=== PATIENT | female | born 1975 | race Caucasian/White ===

== ENCOUNTER 2023-11-11 14:47 | Outpatient (CLI) | payer BC, SELFPAY ==
--- NOTE | 2023-11-11 | MR_ITS ---
APPROVED REPORT Bioinformatics Support Specialist: CLINICAL INDICATION History of scleroderma, abnormal TTE TECHNIQUE Image Acquisition: Cardiac magnetic resonance (CMR) was performed on Siemens Espree MRI 1.5T scanner. Software platform sequences were performed using the Siemens Aldera MR B19 platform. A set of three-plane, low-resolution, large [id number] localizers were initially acquired. Then axial, coronal, sagittal TrueFISP, as well as axial HASTE images, were obtained. These were followed by gated TrueFISP breathold cinematic sequences obtained in the short axis with 8 mm slices and 2 mm gaps, 2-chamber (vertical long axis), 3-chamber, 4-chamber (horizontal long axis). A bolus of contrast was injected intravenously with first-pass sequences obtained in the short axis and four-chamber planes. After approximately 10 minutes, a TI band saw runner sequence was performed to determine the optimal TI time. Using the optimized TI time, delayed contrast enhancement segmented inversion???recovery TurboFLASH sequences were obtained in the short axis, 2-chamber, 3-chamber, and 4-chamber projections. 2D-velocity phase mapping was performed. Functional parameters were calculated by offline analysis on an independent workstation ([employer], [email or web address]). Contrast: ProHance??? (Gadoteridol) FINDINGS MORPHOLOGY AND FUNCTION Left ventricle: The left ventricle is normal in size. The indexed left ventricular end-diastolic volume (LVEDVi) is 81 ml/m2 (reference range 57-105 ml/m2 in males, 56-96 ml/m2 in females). There is mild reduction in left ventricular systolic function. There is normal left ventricular wall thickness. Mild global hypokinesis is present. The septum is asynchronous. The septal and inferoseptal LV mccarthy are moderately hypokinetic. LVEF is calculated at 40.1% (reference range 57-77%). Right ventricle: The right ventricle is normal in size. The indexed right ventricular end-diastolic volume (RVEDVi) is 34 ml/m2 (reference range 61-121 ml/m2 in males, 48-112 ml/m2 in females). There is mild reduction in right ventricular systolic function. RVEF is calculated at 40.3% (reference range 52-72% in males, 51-71% in females). Atria: The left atrium is normal in size. The maximum indexed left atrial volume is 19 ml/m2 (reference range 26-52 ml/m2 in males, 27-53 ml/m2 in females). The right atrium is normal in size. The maximum indexed right atrial volume is 18 ml/m2 (reference range 18-90 ml/m2). Aorta: The diameter of the aortic annulus is normal, measuring 24 mm (coronal view reference range 21-30 mm in males, 19-27 mm in females). The diameter of the aortic sinus is normal, measuring 28 mm (coronal view reference range 25-42 mm in males, 24-36 mm in females). The diameter of the sinotubular junction is normal, measuring 23 mm (coronal view reference range 18-32 mm in males, 18-28 mm in females). The diameters of the ascending and descending thoracic aorta are normal. Main pulmonary artery: The main pulmonary artery diameter is normal. Pericardium: The pericardial thickness is normal. The pericardial thickness measures 1.9 mm (normal < 4.0 mm). There is no pericardial effusion. VALVES The valvular morphologies in the visualized sequences appear normal. There is no significant valvular stenosis or regurgitation of the mitral, aortic, tricuspid, or pulmonic valve noted visually. Systolic anterior motion of the mitral valve is not visualized. Ratio of pulmonary to systemic flow, Qp:Qs ratio = 1.04 (normal < or = 1.2, hemodynamically significant shunt > 1.5), demonstrating no evidence of hemodynamically significant shunt. TISSUE CHARACTERIZATION Resting Perfusion: Abnormal myocardial blood flow at rest. Resting hypoperfusion is noted in the septal LV wall. Myocardial Fibrosis and/or edema: Normal gadolinium kinetics are present. No evidence of late gadolinium enhancement is noted, consistent with absence of myocardial scarring, infarction, or necrosis. T2-weighted imaging demonstrates no evidence of myocardial edema or inflammation. OTHER No other significant findings are noted. However, this exam is focused on the cardiac structure and function. Breat implants bilaterally are incidentally noted. IMPRESSION Normal LV size with mild reduction in LV systolic function. LVEDVi= 81 ml/m2 and LVEF= 40.1%. The septum is asynchronous. The septal and inferoseptal LV mccarthy are moderately hypokinetic. Normal RV size with mild reduction in RV systolic function. RVEDVi= 34 ml/m2 and RVEF= 40.3%. No atrial enlargement. No CMR evidence of myocardial scarring, infarction, or necrosis. No evidence of myocardial edema or inflammation. Resting hypoperfusion is noted in the septal LV wall. Ratio of pulmonary to systemic flow, Qp:Qs ratio = 1.04 (normal < or = 1.2, hemodynamically significant shunt > 1.5), demonstrating no evidence of hemodynamically significant shunt. Overall, this CMR demonstrates mild reduction in biventricular systolic function. No evidence of LGE or pattern characteristic of underlying etiology. Ischemic evaluation for the resting hypoperfusion in the septal LV wall is suggested, if clinically feasible. COMPARISON None CRITICAL RESULT None COMMUNICATION Per this written report The findings of this cardiac MR were reviewed, reported, and signed by Feliberto Ramsey MD (Medical Receptionist Medical Assistant). Conclusion Electronically signed by : Emerita Ramsey MD 11/21/2023 11:39:47
[2023-11-11] MEDS: GADOTERIDOL INJ 20ML SYRINGE 19 ML IV (15:52)
[2023-11-11] MEDS: SODIUM CHLORIDE 0.9% 10ML SYR (RAD ONLY) 10 ML IV (15:52)
[2023-11-11] MEDS: 0.9 % SODIUM CHLORIDE 50 ML VIAL 25 ML IV (15:52)
== END 2023-11-11 23:59 | disposition home or self-care (01) ==
LOC: RAD 14:48
DX: M34.9 Systemic sclerosis, unspecified (principal)
CPT/HCPCS: 75561; A9576

== ENCOUNTER 2024-06-05 09:27 | Outpatient (CLI) | payer BC, SELFPAY ==
--- NOTE | 2024-06-05 09:30 | CT_ITS ---
FINAL REPORT TECHNIQUE: IV contrast enhanced exam This study was performed with techniques to keep radiation doses as low as reasonably achievable, (ALARA). Individualized dose reduction techniques using automated exposure control or adjustment of mA and/or kV according to the patient's size were employed. CLINICAL HISTORY: ABD PAIN, epigastric pain for several years. unknown cause. COMPARISON: None FINDINGS: CT ABDOMEN AND PELVIS: Abdomen: Lung bases are clear. A small hiatal hernia is present, with findings consistent with reflux. The gallbladder is surgically absent. Liver has an unremarkable CT appearance. The spleen, pancreas and adrenal glands are unremarkable. Kidneys show no mass or obstruction. No bowel obstruction or fluid collection is seen. Pelvis: The appendix is normal in appearance. Pelvic bowel loops are unremarkable. No fluid collection or adenopathy is seen. The uterus has been surgically resected. IMPRESSION: Small hiatal hernia, with findings consistent with reflux. Otherwise, unremarkable CT evaluation of the abdomen and pelvis Reviewed, Interpreted and Dictated by Caron Dean MD Transcribed by Rachana Magallanes Authenticated and [facility]
[2024-06-05 10:05] LABS: Blood Urea Nitrogen 12 mg/dl (7-17); Estimated Glomerular Filt Rate 58 ml/min (>60); GFR (African American) 71 ML/MIN (>60)
[2024-06-05] MEDS: SODIUM CHLORIDE 0.9% 10ML SYR (RAD ONLY) 10 ML IV (10:40)
[2024-06-05] MEDS: IOPAMIDOL-370 (76%);100ML BOTTLE 75 ML IV (10:40)
== END 2024-06-05 23:59 | disposition home or self-care (01) ==
PROVIDERS: PCP Internal Medicine; Referring Provider Internal Medicine Gastroenterology; Visit Provider Internal Medicine
DX: R10.13 Epigastric pain (principal); R10.9 Unspecified abdominal pain
CPT/HCPCS: 36415; 74177; 82565; 84520; Q9967

== ENCOUNTER 2024-06-11 13:58 | Outpatient (CLI) | payer BC, SELFPAY ==
[2024-06-11 15:39] LABS: Basophils # 0.1 K/mm3 (0-0.2); Basophils % 0.8 % (0.1-2.0); Eosinophils # 0.4 K/mm3 (0.0-0.4); Eosinophils % 5.3 % (0.1-12.0); Hematocrit 37.6 % (37.0-47.0); Hemoglobin 12.1 g/dL (12.2-16.2); Lymphocytes # 3.4 K/mm3 (0.7-4.5); Lymphocytes % 46.4 % (10-50); Mean Corpuscular HGB Conc 32.2 g/dL (31.8-35.4); Mean Corpuscular Hemoglobin 30.6 pg (27.0-31.2); Mean Corpuscular Volume 94.9 fl (81-99); Mean Platelet Volume 10.2 fl (7.4-10.4); Monocytes # 0.5 K/mm3 (0.1-1.0); Monocytes % 6.2 % (1.7-9.3); Neutrophils % 41.2 % (37.0-80.0); Platelet Count 262 K/mm3 (142-424); Red Blood Count 3.96 M/mm3 (4.20-5.40); White Blood Count 7.3 K/mm3 (4.8-10.8)
[2024-06-11 16:08] LABS: Iron 98 ug/dL (37-170)
[2024-06-11 17:18] LABS: Vitamin B12 626 pg/mL (239-931)
[2024-06-11 17:22] LABS: 25-OH Vitamin D, Total 31.2 ng/mL (30-100)
[2024-06-11 19:35] LABS: Ferritin 10.4 ng/ml (11.1-264)
[2024-06-11 20:50] LABS: Total Iron Binding Capacity 413 ug/dL (265-497)
[2024-06-13 15:14] LABS: Pancreatic Elastase, Fecal 591 (>200)
[2024-06-14 19:23] LABS: Vitamin B6 24.3 ug/L (3.4-65.2)
== END 2024-06-11 23:59 | disposition home or self-care (01) ==
LOC: LAB 13:59
PROVIDERS: Obstetrics & Gynecology; PCP Internal Medicine; Visit Provider Internal Medicine Gastroenterology
DX: R14.0 Abdominal distension (gaseous) (principal); R19.8 Other specified symptoms and signs involving the digestive system and abdomen; R10.9 Unspecified abdominal pain; L65.9 Nonscarring hair loss, unspecified
CPT/HCPCS: 36415; 82306; 82607; 82656; 82728; 83540; 83550; 84207; 85025

== ENCOUNTER 2024-06-27 19:44 | Emergency (ER) | payer BC, SELFPAY ==
[2024-06-27 20:00] VITALS: BP 138/84; PULSE 93; RESP 15; O2SAT 99
[2024-06-27 20:03] VITALS: BP 138/84; PULSE 89; RESP 18; TEMP 37.2; O2SAT 100; BMI 33.0
--- NOTE | 2024-06-27 20:03 | [facility].EDGENADL ---
Discharge Plan Disposition Patient Disposition: Home, Self-Care Prescriptions Prescriptions: New lorazepam 1 mg tablet 1 mg PO Q8H PRN (Reason: anxiety) Qty: 7 0RF No Action hydroxychloroquine 200 mg tablet 400 mg PO ONCE Rx Instructions: Take 2 tablets by mouth daily carvedilol 3.125 mg tablet 3.125 mg PO BID Rx Instructions: Take 1 tablet by mouth twice daily with meals Voquezna 20 mg tablet 20 mg PO DAILY Rx Instructions: Take 1 tablet by mouth daily nortriptyline 25 mg capsule 25 mg PO HS prucalopride 1 mg tablet 1 mg PO DAILY promethazine 25 mg tablet 25 mg PO Q6H PRN melatonin 10 mg capsule 10 mg PO HS PRN acetaminophen 500 mg capsule 1,000 mg PO Q6H PRN colchicine 0.6 mg capsule 0.6 mg PO DAILY ondansetron 4 mg tablet,disintegrating 4 mg PO Q8H PRN famotidine 40 mg tablet 40 mg PO HS Jardiance 10 mg tablet 10 mg PO DAILY Entresto 24-26 mg tablet 1 tab PO BID [facility] 750 mg-100 mg- 1.65 mg-108 mg tablet 1 tab PO DAILY hyoscyamine sulfate [Levsin] 0.125 mg tablet 0.125 mg PO QID magnesium oxide 250 mg magnesium tablet 500 mg PO DAILY polyethylene glycol 3350 [Miralax] 17 gram/dose powder 17 g PO DAILY benzonatate 200 mg capsule PO Patient Comments: TAKE 1 CAPSULE BY MOUTH 2 TO 3 TIMES PER DAY NEEDED FOR COUGH.SWALLOW WHOLE DO NOT CHEW azithromycin 250 mg tablet 250 mg PO Patient Comments: TAKE 2 TABLETS BY MOUTH FOR 1 DAY THEN TAKE 1 TABLET BY MOUTH DAILY FOR 4 DAYS fluticasone propionate 50 mcg/actuation spray,suspension intranasal Patient Comments: SHAKE LIQUID AND USE 2 SPRAYS IN EACH NOSTRIL DAILY azelastine 137 mcg (0.1 %) spray,non-aerosol intranasal Patient Comments: ADMINISTER 2 SPRAYS INTO EACH NOSTRIL EVERY 12 HOURS clobetasol 0.05 % cream 1 applic topical HS Qty: 30 0RF estradiol 2 mg tablet 2 mg PO DAILY Qty: 30 11RF estradiol 10 mcg tablet 10 mcg vaginal .three times weekly Qty: 12 11RF Rx Instructions: insert vaginally 3 times weekly ferrous fumarate 324 mg (106 mg iron) tablet 324 mg PO DAILY Qty: 90 1RF Referrals Follow up/Referrals: Provider,Referral, [Primary Care Provider] - See instructions Activity Restrictions/Add. Instructions Additional Instructions/Restrictions: Follow-up with primary care doctor and your GI specialist as scheduled. Please return the emerged part with any new, concerning, worsening symptoms. Clinical Impressions Clinical Impression: Dysphagia Qualifiers: Dysphagia type: esophageal phase Qualified Code(s): R13.19 - Other dysphagia Instructions Patient Instructions: DI for Acute Abdominal Pain Print Language Print Language: [place] Citizen Discharge ED Provider: Tyshawn Acosta General Adult HPI <RAMÓN Jeronimo - Last Filed: 06/27/24 21:24> General Chief complaint: Abdominal Pain Stated complaint: discomfort in esopugus and ribs Time Seen by Provider: 06/27/24 19:46 History of Present Illness HPI narrative: Patient presents for evaluation of dysphagia. Patient has a long history of digestive difficulties with GERD and scleroderma and GI motility issues. She has followed for a long time at [facility] but is recently moved to the area. She has seen gastroenterology here 1 time at the beginning of this month. She has an EGD scheduled for next week. However since her visit with GI she has had increasing painful swallowing. Patient reports that over the last 2 weeks its become difficult to even swallow her secretions without pain. She denies any choking or food impaction. She denies any injury chest pain shortness of breath fever chills hemoptysis hematochezia melena nausea vomiting diarrhea currently. She also reports that she has been compliant with her medication regimen is not helpful. Related Data Home Medications ?Medication ?Instructions ?Recorded ?Confirmed acetaminophen 500 mg capsule 1,000 mg PO Q6H PRN 06/05/24 06/11/24 carvedilol 3.125 mg tablet 3.125 mg PO BID 06/05/24 06/11/24 colchicine 0.6 mg capsule 0.6 mg PO DAILY 06/05/24 06/11/24 empagliflozin 10 mg tablet 10 mg PO DAILY 06/05/24 06/11/24 (Jardiance) famotidine 40 mg tablet 40 mg PO HS 06/05/24 06/11/24 glucosam 750 mg-chondroi 100 1 tab PO DAILY 06/05/24 06/11/24 mg-hyalur 1.65 mg-CF borate 108 mg tablet ([facility]) hydroxychloroquine 200 mg tablet 400 mg PO ONCE 06/05/24 06/11/24 hyoscyamine sulfate 0.125 mg 0.125 mg PO QID 06/05/24 06/11/24 tablet (Levsin) magnesium oxide 500 mg PO DAILY 06/05/24 06/11/24 melatonin 10 mg capsule 10 mg PO HS PRN 06/05/24 06/11/24 nortriptyline 25 mg capsule 25 mg PO HS 06/05/24 06/11/24 ondansetron 4 mg disintegrating 4 mg PO Q8H PRN 06/05/24 06/11/24 tablet polyethylene glycol 3350 17 17 g PO DAILY 06/05/24 06/11/24 gram/dose oral powder (Miralax) promethazine 25 mg tablet 25 mg PO Q6H PRN 06/05/24 06/11/24 prucalopride 1 mg tablet 1 mg PO DAILY 06/05/24 06/11/24 sacubitril 24 mg-valsartan 26 mg 1 tab PO BID 06/05/24 06/11/24 tablet (Entresto) vonoprazan 20 mg tablet (Voquezna) 20 mg PO DAILY 06/05/24 06/11/24 azelastine 137 mcg (0.1 %) nasal intranasal 06/11/24 06/11/24 spray azithromycin 250 mg tablet 250 mg PO 06/11/24 06/11/24 benzonatate 200 mg capsule mg PO 06/11/24 06/11/24 fluticasone propionate 50 intranasal 06/11/24 06/11/24 mcg/actuation nasal spray,suspension Previous Rx's ?Medication ?Instructions ?Recorded clobetasol 0.05 % topical cream 1 applic topical HS #30 grams 06/11/24 estradiol 10 mcg vaginal tablet 10 mcg vaginal .three times weekly 06/11/24 #12 tabs estradiol 2 mg tablet 2 mg PO DAILY #30 tabs 06/11/24 ferrous fumarate 324 mg (106 mg 324 mg PO DAILY #90 tabs 06/12/24 iron) tablet lorazepam 1 mg tablet 1 mg PO Q8H PRN anxiety #7 tabs 06/28/24 Allergies Allergy/AdvReac Type Severity Reaction Status Date / Time lamotrigine (From Lamictal) Allergy Unknown Verified 06/27/24 20:07 allergy reaction levofloxacin (From Levaquin) Allergy Unknown Verified 06/27/24 20:07 allergy reaction lithium Allergy Unknown Verified 06/27/24 20:07 allergy reaction PFSH <RAMÓN Jeronimo - Last Filed: 06/27/24 21:24> [facility] Disclaimer: The information contained in this section may have been updated after the patient was seen, as this information can be updated by other users. Medical History (Updated 06/28/24 @ 00:30 by Tyshawn Acosta MD) Dyspareunia in female Decreased libido Atrophic vaginitis Lesion of female perineum Menopausal symptoms Lichen sclerosus of vulva Hair loss Scleroderma Fibromyalgia Raynaud disease IBS (irritable bowel syndrome) Diverticulosis Arthritis Anemia Anxiety Gastroparesis Silveira's esophagus GERD (gastroesophageal reflux disease) Surgical History History of delivery History of Jim fundoplication H/O: hysterectomy H/O hernia repair History of esophageal surgery History of cholecystectomy H/O breast surgery Family History Grandmother Breast cancer Family/Other Breast cancer Other Cancer Coronary artery disease Heart disease Hyperlipidemia Hypertension Kidney disease Stroke Social History Smoking Status: Never smoker alcohol intake: current alcohol intake frequency: holidays/special occasions only substance use type: denies use current occupational status: employed Travel in the last 8 weeks: Inside the [place] Have you lived/traveled outside US in past 30 days?: No Contact w/someone who lives/traveled outside US past 30 days?: No Exposure to someone with infectious disease in past 14 days?: No Do you have a fever (greater than 100.4 F or 38 C)?: No Have you tested positive for COVID-19: No Exposed to someone with COVID-19 in past 14 days?: No Do you have a sore throat?: No Do you have a cough?: No Do you have any weakness?: No Do you have any diarrhea?: No Are you experiencing any unusual bleeding?: No Do you have any muscle aches/pain?: No Do you have any abdominal pain?: No Are you experiencing loss of taste or smell?: No <RAMÓN Jeronimo - Last Filed: 06/27/24 21:24> ROS Obtained: Yes Systems reviewed as appropriate & no additional complaints except as documented Physical Exam <RAMÓN Jeronimo - Last Filed: 06/27/24 21:24> General General appearance: alert and in no apparent distress Respiratory Respiratory exam: Present normal lung sounds bilaterally Cardiovascular Cardiovascular exam: Present regular rate Neurological Exam Neurological exam: Present alert and oriented X3 Medical Decision Making <RAMÓN Jeronimo - Last Filed: 06/27/24 21:24> Medical Records Medical records reviewed: Yes I reviewed the patient's medical records. Screening: Per USPSTF and CDC recommendations, given the prevalence of disease in our region, it is our hospital?s policy to screen for HIV and viral Hepatitis for all patients aged 18 and over and those with ongoing risk factors. [place] Inquiry Pt receiving controlled substance: No Vital Signs: 06/27/24 20:00 06/27/24 20:03 06/27/24 20:07 Temperature 98.9 F Temperature Source Oral Pulse Rate 93 H 80 Pulse Rate [Apical] 89 Respiratory Rate 15 18 18 Blood Pressure 138/84 129/77 Blood Pressure [Right Arm] 138/84 Blood Pressure Mean [Right Arm] 102 Blood Pressure Source 02 Sat by Pulse Oximetry 99 100 98 Oxygen Delivery Method Room Air Room Air Room Air 06/27/24 20:10 06/28/24 00:42 06/28/24 00:46 Temperature 98.5 F 98 F Temperature Source Oral Pulse Rate 92 H 88 80 Pulse Rate [Apical] Respiratory Rate 17 17 20 Blood Pressure 136/85 126/63 132/87 Blood Pressure [Right Arm] Blood Pressure Mean [Right Arm] Blood Pressure Source Automatic Cuff 02 Sat by Pulse Oximetry 99 Oxygen Delivery Method Room Air Room Air Room Air Lab Data Lab results reviewed: Yes I reviewed the patient's lab results. Lab Results 06/27/24 20:19: WBC 5.5, RBC 3.67 L, Hgb 11.3 L, Hct 34.5 L, MCV 94.0, MCH 30.8, MCHC 32.8, RDW 12.9, Plt Count 266, MPV 10.0, Neut % (Auto) 35.9 L, Lymph % (Auto) 50.2 H, Haskell % (Auto) 7.8, Eos % (Auto) 5.2, Baso % (Auto) 0.7, Neut # (Auto) 2.0, Lymph # (Auto) 2.8, Haskell # (Auto) 0.4, Eos # (Auto) 0.3, Baso # (Auto) 0.0, Sodium 137, Potassium 3.9, Chloride 103, Carbon Dioxide 26, Anion Gap 11.9, BUN 10, Creatinine 0.90, Estimated Creat Clear 93, Estimated GFR 66, Est GFR ( Amer) 80, Glucose 91, Calcium 8.9, Total Bilirubin 0.5, AST 34, ALT 23, Alkaline Phosphatase 86, Total Protein 6.9, Albumin 3.9, Globulin 3.0, Albumin/Globulin Ratio 1.3, Procalcitonin < 0.030 06/27/24 20:19 06/27/24 20:19 Orders (Tests/Meds): ED MEDICATIONS Discontinued Medications Generic Name Dose Route Start Last Admin Trade Name Freq PRN Reason Stop Dose Admin Belladonna Alkaloids 60 ml 06/27/24 20:15 06/27/24 23:12 Belladonna Alkaloids 60 Ml Ml PO 06/27/24 20:16 60 ml ONCE ONE Administration Iopamidol 75 ml 06/27/24 22:18 06/27/24 22:19 Iopamidol-370 (76%);100ml Bottle IV 06/27/24 22:19 75 ml ONCE ONE Administration Ketorolac Tromethamine 15 mg 06/27/24 20:15 06/27/24 20:35 Ketorolac 30mg/Ml Vial IV 06/27/24 20:16 15 mg ONCE ONE Administration Lorazepam 1 mg 06/27/24 20:24 06/27/24 20:36 Lorazepam 2mg/Ml Vial IV 06/27/24 20:25 1 mg ONCE ONE Administration Sodium Chloride 10 ml 06/27/24 20:24 Sodium Chloride 0.9% 10ml Vial IV 07/27/24 20:23 NEEDED PRN to Dilute Lorazepam inj Sodium Chloride 10 ml 06/27/24 22:18 06/27/24 22:19 Sodium Chloride 0.9% 10ml Syr (Rad Only) IV 07/27/24 22:17 10 ml NEEDED PRN Administration Maintain IV Site ORDERS Category Date Time Status CT abdomen pelvis w con Stat Cat Scan 06/27/24 20:[address] chest w con Stat Cat Scan 06/27/24 20:15 Completed CBC w/Auto Diff [Complete Blood Count Auto Diff] Stat Lab 06/27/24 20:19 Completed CMP [Comprehensive Metabolic Panel] Stat Lab 06/27/24 20:19 Completed Procalcitonin Stat Lab 06/27/24 20:19 Completed Medical Decision Narrative: In summary patient is a 49-year-old female who presents to the emergency department for evaluation of aphasia. Patient is noted apically stable with a blood pressure 138/84 pulse 89 with normal sinus rhythm on bedside monitor breathing 18 times a minute satting 100% room air upon arrival, afebrile at 98.9. Physical exam is remarkable for no reproducible discomfort on palpation with clear breath sounds mild epigastric abdominal tenderness on palpation with no rebound or guarding no rigidity normal bowel sounds.. Differential diagnosis includes Silveira's esophagus versus achalasia versus esophageal injury versus GERD etc. Initial workup will be conducted with CT scan chest abdomen pelvis with IV and oral contrast. I had a interactive discussion with Dr. Russell of gastroenterology prior to JONES plan regarding patient JONES presentation and management. He recommended oral contrast to be most beneficial. He also recommended lorazepam to try to rule leave her esophageal spasm pain.. Initial interventions are deferred until CT imaging and if CT imaging does not show any evidence of esophageal injury to attempt GI cocktail. Initial workup ordered and pending at the time of handoff to Dr. Acosta at 2200 hrs. <Tyshawn Acosta MD - Last Filed: 06/28/24 01:27> Vital Signs: 06/27/24 20:00 06/27/24 20:03 06/27/24 20:07 Temperature 98.9 F Temperature Source Oral Pulse Rate 93 H 80 Pulse Rate [Apical] 89 Respiratory Rate 15 18 18 Blood Pressure 138/84 129/77 Blood Pressure [Right Arm] 138/84 Blood Pressure Mean [Right Arm] 102 Blood Pressure Source 02 Sat by Pulse Oximetry 99 100 98 Oxygen Delivery Method Room Air Room Air Room Air 06/27/24 20:10 06/28/24 00:42 06/28/24 00:46 Temperature 98.5 F 98 F Temperature Source Oral Pulse Rate 92 H 88 80 Pulse Rate [Apical] Respiratory Rate 17 17 20 Blood Pressure 136/85 126/63 132/87 Blood Pressure [Right Arm] Blood Pressure Mean [Right Arm] Blood Pressure Source Automatic Cuff 02 Sat by Pulse Oximetry 99 Oxygen Delivery Method Room Air Room Air Room Air Lab Data Lab Results 06/27/24 20:19: WBC 5.5, RBC 3.67 L, Hgb 11.3 L, Hct 34.5 L, MCV 94.0, MCH 30.8, MCHC 32.8, RDW 12.9, Plt Count 266, MPV 10.0, Neut % (Auto) 35.9 L, Lymph % (Auto) 50.2 H, Haskell % (Auto) 7.8, Eos % (Auto) 5.2, Baso % (Auto) 0.7, Neut # (Auto) 2.0, Lymph # (Auto) 2.8, Haskell # (Auto) 0.4, Eos # (Auto) 0.3, Baso # (Auto) 0.0, Sodium 137, Potassium 3.9, Chloride 103, Carbon Dioxide 26, Anion Gap 11.9, BUN 10, Creatinine 0.90, Estimated Creat Clear 93, Estimated GFR 66, Est GFR ( Amer) 80, Glucose 91, Calcium 8.9, Total Bilirubin 0.5, AST 34, ALT 23, Alkaline Phosphatase 86, Total Protein 6.9, Albumin 3.9, Globulin 3.0, Albumin/Globulin Ratio 1.3, Procalcitonin < 0.030 Orders (Tests/Meds): ED MEDICATIONS Discontinued Medications Generic Name Dose Route Start Last Admin Trade Name Freq PRN Reason Stop Dose Admin Belladonna Alkaloids 60 ml 06/27/24 20:15 06/27/24 23:12 Belladonna Alkaloids 60 Ml Ml PO 06/27/24 20:16 60 ml ONCE ONE Administration Iopamidol 75 ml 06/27/24 22:18 06/27/24 22:19 Iopamidol-370 (76%);100ml Bottle IV 06/27/24 22:19 75 ml ONCE ONE Administration Ketorolac Tromethamine 15 mg 06/27/24 20:15 06/27/24 20:35 Ketorolac 30mg/Ml Vial IV 06/27/24 20:16 15 mg ONCE ONE Administration Lorazepam 1 mg 06/27/24 20:24 06/27/24 20:36 Lorazepam 2mg/Ml Vial IV 06/27/24 20:25 1 mg ONCE ONE Administration Sodium Chloride 10 ml 06/27/24 20:24 Sodium Chloride 0.9% 10ml Vial IV 07/27/24 20:23 NEEDED PRN to Dilute Lorazepam inj Sodium Chloride 10 ml 06/27/24 22:18 06/27/24 22:19 Sodium Chloride 0.9% 10ml Syr (Rad Only) IV 07/27/24 22:17 10 ml NEEDED PRN Administration Maintain IV Site ORDERS Category Date Time Status CT abdomen pelvis w con Stat Cat Scan 06/27/24 20:[address] chest w con Stat Cat Scan 06/27/24 20:15 Completed CBC w/Auto Diff [Complete Blood Count Auto Diff] Stat Lab 06/27/24 20:19 Completed CMP [Comprehensive Metabolic Panel] Stat Lab 06/27/24 20:19 Completed Procalcitonin Stat Lab 06/27/24 20:19 Completed Medical Decision Narrative: In summary patient is a 49-year-old female who presents to the emergency department for evaluation of aphasia. Patient is noted apically stable with a blood pressure 138/84 pulse 89 with normal sinus rhythm on bedside monitor breathing 18 times a minute satting 100% room air upon arrival, afebrile at 98.9. Physical exam is remarkable for no reproducible discomfort on palpation with clear breath sounds mild epigastric abdominal tenderness on palpation with no rebound or guarding no rigidity normal bowel sounds.. Differential diagnosis includes Silveira's esophagus versus achalasia versus esophageal injury versus GERD etc. Initial workup will be conducted with CT scan chest abdomen pelvis with IV and oral contrast. I had a interactive discussion with Dr. Russell of gastroenterology prior to JONES plan regarding patient JONES presentation and management. He recommended oral contrast to be most beneficial. He also recommended lorazepam to try to rule leave her esophageal spasm pain.. Initial interventions are deferred until CT imaging and if CT imaging does not show any evidence of esophageal injury to attempt GI cocktail. Initial workup ordered and pending at the time of handoff to Dr. Acosta at 2200 hrs. DANETTE attestation I was consulted by the DANETTE, and we discussed the complexity of problems being addressed. I approved the treatment and management plan for this patient's care in the emergency department, thus performing a substantial portion of the medical decision making. CT imaging was independently interpreted by me, revealing no evidence of esophageal injury. Demonstrated circumferential thickening consistent with patient's known pathology. 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 She did not have significant respiratory symptoms at this time and is to follow-up with primary care doctor regarding this pathology. No acute intra-abdominal pathology. She was tolerating oral intake and had been administered GI cocktail, lorazepam, and Toradol. Was ultimately discharged with plan for outpatient follow-up with Dr. Russell for scheduled scope next . Sent a prescription for lorazepam to take as needed for esophageal spasm according to Dr. Russell recommendations. Tyshawn Acosta MD Critical Care <RAMÓN Jeronimo - Last Filed: 06/27/24 21:24> Critical Care Time Critical Care Time: Yes Attestation: On 06/27/24, the high probability of a clinically significant, sudden or life threatening deterioration of the following system(s) required my full and direct attention, intervention and personal management. The time I documented below is in addition to time spent performing reported procedures but includes the following listed in this critical care notation. Total Time Total Critical Care Time: 35
[2024-06-27 20:07] VITALS: BP 129/77; PULSE 80; RESP 18; O2SAT 98
[2024-06-27 20:10] VITALS: BP 136/85; PULSE 92; RESP 17; O2SAT 99
--- NOTE | 2024-06-27 20:15 | CT_ITS ---
PROCEDURE INFORMATION: Exam: CT Abdomen And Pelvis With Contrast Exam date and time: 06/27/2024 10:08 PM Age: 49 years old Clinical indication: Abdominal pain; Additional info: Dysphagia and scleroderma TECHNIQUE: Imaging protocol: Computed tomography of the abdomen and pelvis with contrast. Radiation optimization: All CT scans at this facility use at least one of these dose optimization techniques: automated exposure control; mA and/or kV adjustment per patient size (includes targeted exams where dose is matched to clinical indication); or iterative reconstruction. Contrast material: ISOVUE; Contrast volume: 75 ml; Contrast route: IV; COMPARISON: CT ABDOMEN PELVIS W CON 06/05/2024 10:23 AM FINDINGS: Liver: Normal. No mass. Gallbladder and biliary ducts: Surgically absent gallbladder. No biliary ductal dilatation. Pancreas: Normal. No ductal dilation. Spleen: Normal. No splenomegaly. Adrenal glands: Normal. No mass. Kidneys and ureters: Normal. No hydronephrosis. Stomach and bowel: Moderate loss of haustral markings most pronounced in cecum and ascending colon with patulous cecum. Sigmoid colonic diverticula without pericolonic fat stranding. No obstruction. No mucosal thickening. Appendix: No evidence of appendicitis. Intraperitoneal space: Unremarkable. No free air. No significant fluid collection. Vasculature: Unremarkable. No abdominal aortic aneurysm. Lymph nodes: Unremarkable. No enlarged lymph nodes. Urinary bladder: Unremarkable as visualized. Reproductive: Unremarkable as visualized. Bones/joints: Unremarkable. No acute fracture. Soft tissues: Unremarkable. IMPRESSION: 1. Moderate loss of haustral in colonic segments with patulous cecum. With clinical history, can not exclude partial manifestation valvulae conniventes with hidebound bowel . 2. Sigmoid colonic diverticulosis.
--- NOTE | 2024-06-27 20:15 | CT_ITS ---
PROCEDURE INFORMATION: Exam: CT Chest With Contrast; Diagnostic Exam date and time: 06/27/2024 10:08 PM Age: 49 years old Clinical indication: Pain; Chest pressure; Additional info: Dysphagia and scleroderma TECHNIQUE: Imaging protocol: Diagnostic computed tomography of the chest with contrast. Radiation optimization: All CT scans at this facility use at least one of these dose optimization techniques: automated exposure control; mA and/or kV adjustment per patient size (includes targeted exams where dose is matched to clinical indication); or iterative reconstruction. Contrast material: ISOVUE; Contrast volume: 75 ml; Contrast route: IV; COMPARISON: MR CARDIAC WO/W CON 11/11/2023 3:16 PM FINDINGS: Lungs: Too numerous to count, tiny nodular densities throughout lungs most pronounced along peripheries. No consolidation. No masses. Pleural spaces: Unremarkable. No pneumothorax. No pleural effusion. Heart: Unremarkable. No cardiomegaly. No pericardial effusion. Esophagus: Patulous esophagus with mild concentric wall thickening. Lymph nodes: Unremarkable. No enlarged lymph nodes. Vasculature: Unremarkable. No aortic aneurysm. Bones/joints: Unremarkable. No acute fracture. Soft tissues: Unremarkable. IMPRESSION: 1. Tiny, peripheral nodular densities in both lungs. With clinical history, can not exclude early manifestations of follicular bronchiolitis. 2. Patulous esophagus with concentrically thickened esophageal wall without evidence for active inflammation. With clinical history, suspicious for partial manifestation of fibrosis.
[2024-06-27] MEDS: KETOROLAC 30MG/ML VIAL 15 MG IV (20:35)
[2024-06-27] MEDS: LORazepam 2MG/ML VIAL 1 MG IV (20:36)
[2024-06-27 21:39] LABS: Basophils % 0.7 % (0.1-2.0); Eosinophils # 0.3 Kmm3 (0.0-0.4); Eosinophils % 5.2 % (0.1-12.0); Hematocrit 34.5 % (37.0-47.0); Hemoglobin 11.3 g/dL (12.2-16.2); Lymphocytes # 2.8 K/mm3 (0.7-4.5); Lymphocytes % 50.2 % (10-50); Mean Corpuscular HGB Conc 32.8 g/dL (31.8-35.4); Mean Corpuscular Hemoglobin 30.8 pg (27.0-31.2); Monocytes # 0.4 K/mm3 (0.1-1.0); Monocytes % 7.8 % (1.7-9.3); Neutrophils % 35.9 % (37.0-80.0); Nucleated Red Blood Cells # 0 10^3/uL; Nucleated Red Blood Cells % 0 %; Platelet Count 266 K/mm3 (142-424); Red Blood Count 3.67 M/mm3 (4.20-5.40); Red Cell Distribution Width 12.9 % (11.5-17.5); Red Cell Distribution Width-SD 44.7 fL; White Blood Count 5.5 K/mm3 (4.8-10.8)
[2024-06-27 21:48] LABS: Alanine Aminotransferase 23 U/L (12-78); Albumin Level 3.9 g/dl (3.5-5.0); Albumin/Globulin Ratio 1.3 (1.1-1.8); Alkaline Phosphatase 86 U/L (38-126); Anion Gap 11.9 mEq/L (5-15); Aspartate Amino Transferase 34 U/L (14-36); Bilirubin,Total 0.5 mg/dl (0.2-1.3); Blood Urea Nitrogen 10 mg/dl (7-17); Calcium 8.9 mg/dl (8.4-10.2); Carbon Dioxide 26 mmol/L (22.0-30.0); Chloride 103 mmol/L (98-107); Creatinine Clearance Estimated 93 mL/min (50-200); Estimated Glomerular Filt Rate 66 ml/min (>60); GFR (African American) 80 ML/MIN (>60); Glucose 91 mg/dl (74-100); Potassium 3.9 mmoL/L (3.5-5.1); Sodium 137 mmol/L (136-145); Total Protein,Serum 6.9 g/dl (6.3-8.2)
[2024-06-27 22:13] LABS: Procalcitonin < 0.030 ng/mL (0.0-2.0)
[2024-06-27] MEDS: SODIUM CHLORIDE 0.9% 10ML SYR (RAD ONLY) 10 ML IV (22:19)
[2024-06-27] MEDS: IOPAMIDOL-370 (76%);100ML BOTTLE 75 ML IV (22:19)
[2024-06-27] MEDS: BELLADONNA ALKALOIDS 60 ML ML PO (23:12)
[2024-06-28 00:42] VITALS: BP 126/63; PULSE 88; RESP 17; TEMP 36.9; O2SAT 96
[2024-06-28 00:46] VITALS: BP 132/87; PULSE 80; RESP 20; TEMP 36.6; O2SAT 98
== END 2024-06-28 00:49 | disposition home or self-care (01) ==
PROVIDERS: Physician Assistant; Emergency Provider Student in an Organized Health Care Education/Training Program
DX: R10.816 Epigastric abdominal tenderness (principal); R13.10 Dysphagia, unspecified
CPT/HCPCS: 71260; 74177; 80053; 84145; 85025; 96374; 96375; 99291; J1885; J2060; Q9967

== ENCOUNTER 2024-07-02 12:01 | Day surgery (SDC) | payer BC, SELFPAY ==
[2024-07-02 13:46] VITALS: BMI 33.0
[2024-07-02 14:11] VITALS: BP 127/67; PULSE 83; RESP 16; TEMP 36.5; O2SAT 100
[2024-07-02] MEDS: LACTATED RINGERS 1000ML 1,000 ML 50 ML IV (14:18)
--- NOTE | 2024-07-02 14:41 | EXP.ANES.CKL ---
[facility] Disclaimer: The information contained in this section may have been updated after the patient was seen, as this information can be updated by other users. Medical History (Updated 07/02/24 @ 14:10 by Devika Encarnacion RN) Left bundle branch block (LBBB) Chronic heart failure Dyspareunia in female Decreased libido Atrophic vaginitis Lesion of female perineum Menopausal symptoms Lichen sclerosus of vulva Hair loss Scleroderma Fibromyalgia Raynaud disease IBS (irritable bowel syndrome) Diverticulosis Arthritis Anemia Anxiety Gastroparesis Silveira's esophagus GERD (gastroesophageal reflux disease) Surgical History History of delivery History of Jim fundoplication H/O: hysterectomy H/O hernia repair History of esophageal surgery History of cholecystectomy H/O breast surgery Family History Grandmother Breast cancer Family/Other Breast cancer Other Cancer Coronary artery disease Heart disease Hyperlipidemia Hypertension Kidney disease Stroke Social History (Updated 07/02/24 @ 14:10 by Devika Encarnacion RN) Smoking Status: Never smoker alcohol intake: current alcohol intake frequency: holidays/special occasions only substance use type: denies use current occupational status: employed Travel in the last 8 weeks: Inside the [place] caffeine: Yes Have you lived/traveled outside US in past 30 days?: No Contact w/someone who lives/traveled outside US past 30 days?: No Exposure to someone with infectious disease in past 14 days?: No Do you have a fever (greater than 100.4 F or 38 C)?: No Have you tested positive for COVID-19: No Exposed to someone with COVID-19 in past 14 days?: No Do you have a sore throat?: No Do you have a cough?: No Do you have any weakness?: No Are you experiencing any nausea/vomitting?: No Do you have any diarrhea?: No Are you experiencing any unusual bleeding?: No Do you have any muscle aches/pain?: No Do you have any abdominal pain?: No Are you experiencing loss of taste or smell?: No [facility] Anesthesia Checklist Patient Identification Patient Identification: Arm Band Structural Data Admitted From: Home Planned Operative Procedure/s: EGD Consent for Planned Operative Procedure(s) Verified: Yes Verified Documents: Surgical Consent and History and Physical NPO Status Verified Time NPO: 00:00 Additional verifications Anesthesia Reactions: No Airway Assessment Mallampati Score:: Class II C-Spine Mobility Assessed: Yes TMJ Mobility Assessed: Yes Dentition: Good Dentition Neurological Assessment Level of Consciousness: Awake, Alert and Appropriate Anesthesia Plan Anesthesia Risk discussed: Yes Anesthesia Plan: Verified ASA Class: III Anesthesia Type: MAC
--- NOTE | 2024-07-02 15:05 | EXP.HP ---
History of Present Illness *Admission Date: 07/02/24 *Reason for visit:: Dyspepsia/GERD/history of Silveira's esophagus *History of present illness: Mrs. Aponte is a 49-year-old female with a long history of digestive difficulties with GERD, scleroderma and GI motility issues. The patient is seen at [facility] both in the motility clinic but also in the regular GI clinic because of her history of Silveira's. She also has a history of diverticulitis. The patient is presently on Voquezna and famotidine. She also takes Motegrity which has really helped her. The patient continues to have dyspepsia with epigastric abdominal discomfort. She also has some painful swallowing/odynophagia. She does have moderate bloating, belching, nausea and early satiety. She also still has some obstipation with incomplete bowel evacuation. She will get some alternating constipation with diarrhea. She is due for repeat surveillance EGD because of her Silveira's in July 2024. She has had multiple diagnostic studies at [facility]. She has also been seen by Dr. Kenneth Murray MD at the motility clinic in [place]. The patient reports no new change in bowel habits, rectal bleeding, fever or new GI symptoms. She is here to establish care and does not want to travel to [place] as frequently. [facility] Disclaimer: The information contained in this section may have been updated after the patient was seen, as this information can be updated by other users. Medical History (Updated 07/02/24 @ 14:10 by Devika Encarnacion RN) Left bundle branch block (LBBB) Chronic heart failure Dyspareunia in female Decreased libido Atrophic vaginitis Lesion of female perineum Menopausal symptoms Lichen sclerosus of vulva Hair loss Scleroderma Fibromyalgia Raynaud disease IBS (irritable bowel syndrome) Diverticulosis Arthritis Anemia Anxiety Gastroparesis Silveira's esophagus GERD (gastroesophageal reflux disease) Surgical History History of delivery History of Jim fundoplication H/O: hysterectomy H/O hernia repair History of esophageal surgery History of cholecystectomy H/O breast surgery Family History Grandmother Breast cancer Family/Other Breast cancer Other Cancer Coronary artery disease Heart disease Hyperlipidemia Hypertension Kidney disease Stroke Social History (Updated 07/02/24 @ 14:10 by Devika Encarnacion RN) Smoking Status: Never smoker alcohol intake: current alcohol intake frequency: holidays/special occasions only substance use type: denies use current occupational status: employed Travel in the last 8 weeks: Inside the [place] caffeine: Yes Have you lived/traveled outside US in past 30 days?: No Contact w/someone who lives/traveled outside US past 30 days?: No Exposure to someone with infectious disease in past 14 days?: No Do you have a fever (greater than 100.4 F or 38 C)?: No Have you tested positive for COVID-19: No Exposed to someone with COVID-19 in past 14 days?: No Do you have a sore throat?: No Do you have a cough?: No Do you have any weakness?: No Are you experiencing any nausea/vomitting?: No Do you have any diarrhea?: No Are you experiencing any unusual bleeding?: No Do you have any muscle aches/pain?: No Do you have any abdominal pain?: No Are you experiencing loss of taste or smell?: No Review of Systems Review of Systems Review of systems (narrative): Negative *Cardiovascular Comments: Negative *Gastrointestinal Comments: Negative *Genitourinary Comments: Negative *Musculoskeletal Comments: Negative *Neurologic Comments: Negative Meds Home Medications and Allergies Home Medications ?Medication ?Instructions ?Recorded ?Confirmed ?Type acetaminophen 500 mg capsule 1,000 mg PO Q6H PRN Pain 06/05/24 07/02/24 History carvedilol 3.125 mg tablet 3.125 mg PO BID 06/05/24 07/02/24 History colchicine 0.6 mg capsule 0.6 mg PO DAILY 06/05/24 07/02/24 History empagliflozin 10 mg tablet 10 mg PO DAILY 06/05/24 07/02/24 History (Jardiance) famotidine 40 mg tablet 40 mg PO HS 06/05/24 07/02/24 History glucosam 750 mg-chondroi 100 1 tab PO DAILY 06/05/24 07/02/24 History mg-hyalur 1.65 mg-CF borate 108 mg tablet ([facility]) hydroxychloroquine 200 mg tablet 400 mg PO BID 06/05/24 07/02/24 History hyoscyamine sulfate 0.125 mg 0.125 mg PO QID 06/05/24 07/02/24 History tablet (Levsin) magnesium oxide 500 mg PO DAILY 06/05/24 07/02/24 History melatonin 10 mg capsule 10 mg PO HS PRN Pain, Mild 06/05/24 07/02/24 History nortriptyline 25 mg capsule 50 mg PO HS 06/05/24 07/02/24 History ondansetron 4 mg disintegrating 4 mg PO Q8H PRN Nausea 06/05/24 07/02/24 History tablet polyethylene glycol 3350 17 17 g PO DAILY 06/05/24 07/02/24 History gram/dose oral powder (Miralax) promethazine 25 mg tablet 25 mg PO Q6H PRN Nausea 06/05/24 07/02/24 History prucalopride 1 mg tablet 1 mg PO DAILY 06/05/24 07/02/24 History sacubitril 24 mg-valsartan 26 mg 1 tab PO BID 06/05/24 07/02/24 History tablet (Entresto) vonoprazan 20 mg tablet (Voquezna) 20 mg PO DAILY 06/05/24 07/02/24 History clobetasol 0.05 % topical cream 1 applic topical HS #30 grams 06/11/24 07/02/24 Rx estradiol 10 mcg vaginal tablet 10 mcg vaginal .three times weekly 06/11/24 07/02/24 Rx #12 tabs estradiol 2 mg tablet 2 mg PO DAILY #30 tabs 06/11/24 07/02/24 Rx fluticasone propionate 50 1 spray intranasal Q6H PRN 06/11/24 07/02/24 History mcg/actuation nasal ALLERGIES spray,suspension lorazepam 1 mg tablet 1 mg PO Q8H PRN anxiety #7 tabs 06/28/24 07/02/24 Rx New Prescriptions to Start Prescriptions: Allergies Allergy/AdvReac Type Severity Reaction Status Date / Time lamotrigine (From Lamictal) Allergy Mild Swelling Verified 07/02/24 13:52 of Lip/Tongue/Throat levofloxacin (From Levaquin) Allergy Mild Nausea Verified 07/02/24 13:52 lithium Allergy Mild Other Verified 07/02/24 13:52 Exam Data for Last 24 hours Vital signs and Labs for Last 24 Hours: Temp Pulse Resp BP Pulse Ox O2 Del Method 97.7 F 83 16 127/67 100 Room Air 07/02/24 14:11 07/02/24 14:11 07/02/24 14:11 07/02/24 14:11 07/02/24 14:11 07/02/24 14:11 I & O for Last 24 hours: Intake & Output 06/29/24 06/30/24 07/01/24 07/02/24 23:59 23:59 23:59 23:59 Weight 175 lb *Routine HEENT Exam Head: Present normocephalic Eye: Present EOMI and PERRL ENT: Present mucous membranes moist *Routine Neck Exam Neck: Present supple *Routine Respiratory Exam Respiratory: Present CTA bilaterally *Routine Cardiovascular Exam Cardiovascular: Present RRR *Routine Abdominal Exam Abdominal: Present soft and normoactive bowel sounds; Absent tenderness *Routine Rectal Exam Rectal:: deferred *Routine Genitalia Exam Genitalia:: deferred *Routine Extremities Exam Extremities: Absent cyanosis, clubbing or edema *Routine Skin Exam Skin: Present warm; Absent rash *Routine Neurological Exam Neurological: Present alert and oriented X3 Assessment and Plan *Assessment and plan (1) Dysphagia: Status: Acute Qualifiers: Dysphagia type: esophageal phase Qualified Code(s): R13.19 - Other dysphagia Category: Medical Code(s): R13.10 - Dysphagia, unspecified (2) Barretts esophagus: Status: Acute Category: Medical Code(s): K22.70 - Silveira's esophagus without dysplasia (3) Functional dyspepsia: Status: Acute Category: Medical Code(s): K30 - Functional dyspepsia (4) Odynophagia: Status: Acute Category: Medical Code(s): R13.10 - Dysphagia, unspecified (5) Obstipation: Status: Acute Category: Medical Code(s): K59.00 - Constipation, unspecified (6) Diverticulitis: Status: Acute Category: Medical Code(s): K57.92 - Diverticulitis of intestine, part unspecified, without perforation or abscess without bleeding (7) GERD (gastroesophageal reflux disease): Status: Acute Category: Medical Code(s): K21.9 - Gastro-esophageal reflux disease without esophagitis (8) Abdominal discomfort: Status: Acute Category: Medical Code(s): R10.9 - Unspecified abdominal pain (9) Irregular bowel habits: Status: Acute Category: Medical Code(s): R19.8 - Other specified symptoms and signs involving the digestive system and abdomen (10) Bloating: Status: Acute Category: Medical Code(s): R14.0 - Abdominal distension (gaseous) Plan A/P: 1. Longstanding digestive difficulties with a history of GERD, scleroderma and GI motility issues. She also has had dysphagia and Silveira's esophagus. She does note obstipation with incomplete defecation with bloating. This is the preprocedural diagnosis. The patient will be anesthetized/sedated using MAC sedation. The patient has been seen and examined. Cardiac and lung assessment prior to the examination is stable. Proceed with planned diagnostic EGD.
[2024-07-02 15:13] VITALS: O2SAT 98
--- NOTE | 2024-07-02 15:32 | HMH.PROCNOTE ---
[facility] Procedure Note Date: 07/02/24 Time: 15:50 Procedure Note:: Upper Endoscopy Procedure Report: Esophagogastroduodenoscopy with cold biopsies and TTS balloon dilation Endoscopost: Parmjit Russell II, MD Referring Physician: Raúl Lamar MD Date of Procedure: July 02, 2024 Equipment: Olympus GIF 190 standard upper endoscope Sedation: MAC sedation Indications: Mrs. Aponte is a 49-year-old female who is here for diagnostic/therapeutic and surveillance upper endoscopy. The patient does have a long history of digestive difficulties with GERD, scleroderma and GI motility issues. The patient is seen at [facility] both in the motility clinic but also in the regular GI clinic because of her history of Silveira's. She also has a history of diverticulitis. The patient is presently on Voquezna and famotidine. She also takes Motegrity which has really helped her. The patient continues to have dyspepsia with epigastric abdominal discomfort. She also has some painful swallowing/odynophagia. She does have moderate bloating, belching, nausea and early satiety. She also still has some obstipation with incomplete bowel evacuation. She will get some alternating constipation with diarrhea. She is due for repeat surveillance EGD because of her Silveira's in July 2024. She has had multiple diagnostic studies at [facility]. She has also been seen by Dr. Kenneth Murray MD at the motility clinic in [place]. The patient reports no new change in bowel habits, rectal bleeding, fever or new GI symptoms. She recently was in for GI consultation with [place] to establish care and does not want to travel to [place] as frequently. She also was recently in the emergency department because of a flareup with esophageal chest pain and dysphagia. At that time chest and abdomen CT scan was performed and there was a patulous esophagus with some concentric thickened esophageal wall but without any evidence of active inflammation. Her abdominal CT scan showed some loss of haustral colonic segments with patulous cecum and colonic diverticulosis. Procedure: Prior to the procedure, a history and physical exam was performed, and patient's medications and allergies were reviewed. The risks, benefits and alternatives of the sedation and procedure were discussed with the patient. All questions were answered and informed consent was obtained. The patient was brought to the procedure room. Patient identification and proposed procedure were verified by the physician and the nurse. The patient was placed in a left lateral decubitus position and the scope was passed under direct vision. Throughout the procedure, the patient's blood pressure, pulse, and oxygen saturations were monitored continuously. The upper GI endoscopy was accomplished without difficulty. The patient tolerated the procedure well. Findings: The scope was passed directly into the upper esophagus and advanced to the third portion of the duodenum. The post bulbar duodenum, ampulla and duodenal bulb were normal with normal mucosa and conniventes. The scope was withdrawn through a normal duodenal bulb and pylorus into the stomach. There was bile reflux with mild linear reactive gastropathy of the antrum and mild chronic gastritis of the body and fundus of the stomach. Biopsies were taken separately from the antrum and body of the stomach with cold biopsy forceps. Upon retroflexion there was a small 2 cm hiatal hernia. The scope was then withdrawn into the esophagus. There was no evidence of reflux esophagitis or Silveira's. There was a serrated Z-line but this did not meet criteria for Silveira's (squamocolumnar junction greater than 2 cm above GE junction). Biopsies were taken at the GE junction to rule out intestinal metaplasia. There was increased esophageal luminal diameter with tertiary contractions with evidence of moderate to marked esophageal dysmotility. There was also some pill content but also whitish-yellow plaques in the midesophagus suspicious for early candidal esophagitis. Biopsies were taken from the midesophagus to rule out candidal esophagitis. The entire esophagus was dilated to 60 Uzbek/20 mm with a TTS hydrostatic balloon with mild resistance at the cricopharyngeus. The remainder of the esophageal mucosa was normal. Impression: 1. Cricopharyngeal spasm status post dilation to 20 mm 2. Nonerosive GERD with marked esophageal dysmotility and increased esophageal luminal diameter and very small 2 cm hiatal hernia (no Silveira's) 3. Whitish-yellow plaques (mildly) within the distal and mid esophagus?rule out early candidal esophagitis 4. Bile reflux with mild linear reactive gastropathy and mild chronic gastritis Plan: I will follow-up the biopsies and discuss the findings with the patient and family. We will discuss additional treatment options today.
[2024-07-02 15:47] VITALS: BP 115/75; PULSE 89; RESP 17; TEMP 36.8; O2SAT 98
[2024-07-02 16:07] VITALS: BP 123/61; PULSE 85; RESP 17; O2SAT 97
[2024-07-02 16:17] VITALS: BP 121/70; PULSE 84; RESP 17; O2SAT 96
== END 2024-07-02 16:20 | disposition home or self-care (01) ==
PROVIDERS: PCP Internal Medicine; Visit Provider Internal Medicine Gastroenterology
PROC: 0DJ08ZZ Inspection of Upper Intestinal Tract, Via Natural or Artificial Opening Endoscopic (ICD-10-PCS; CPT 43239; principal; 2024-07-02 13:30)
DX: K31.9 Disease of stomach and duodenum, unspecified (principal); K44.9 Diaphragmatic hernia without obstruction or gangrene; K29.70 Gastritis, unspecified, without bleeding; K22.4 Dyskinesia of esophagus; J39.2 Other diseases of pharynx; K21.9 Gastro-esophageal reflux disease without esophagitis; K22.70 Barrett's esophagus without dysplasia; K57.92 Diverticulitis of intestine, part unspecified, without perforation or abscess without bleeding; R10.13 Epigastric pain; R14.0 Abdominal distension (gaseous); R14.2 Eructation; R68.81 Early satiety; K59.00 Constipation, unspecified; R15.0 Incomplete defecation; R19.7 Diarrhea, unspecified
CPT/HCPCS: 43239; 43249; C1726; J2405; J7120

== ENCOUNTER 2024-07-06 15:59 | Outpatient (CLI) | payer BC, SELFPAY ==
--- NOTE | 2024-07-06 16:00 | MM_ITS ---
PROCEDURE INFORMATION: Exam: Bilateral Screening 3D Mammography Exam date and time: 07/06/2024 4:04 PM Age: 49 years old Clinical indication: Screening exam TECHNIQUE: Imaging protocol: Bilateral Screening tomosynthesis and 2D mammography including computer-aided detection (CAD) when performed. COMPARISON: MAMMO SCREENING DIGITAL TOMOSYNTHESIS BILATERAL W CAD 06/16/2023 11:16 AM FINDINGS: MAMMOGRAPHY: Breast composition: There are scattered areas of fibroglandular density. Mass: No suspicious masses. Architectural distortion: None. Calcifications: No suspicious calcifications. Asymmetric density: None. Skin thickening: None. Axillary adenopathy: None. Implants: Subpectoral breast implants are present. IMPRESSION: No mammographic evidence of malignancy. Annual screening is recommended unless otherwise clinically indicated. ASSESSMENT: BI-RADS Category 1: Negative.
== END 2024-07-06 23:59 | disposition home or self-care (01) ==
LOC: RAD 16:00
PROVIDERS: PCP Internal Medicine; Visit Provider Obstetrics & Gynecology
DX: Z12.31 Encounter for screening mammogram for malignant neoplasm of breast (principal)
CPT/HCPCS: 77063; 77067

== ENCOUNTER 2024-08-27 10:58 | Outpatient (CLI) | payer BC, SELFPAY ==
--- NOTE | 2024-08-27 | CA_ITS ---
APPROVED REPORT EXAM: Comprehensive 2D, Doppler, and color-flow Echocardiogram Production Machine Operator: Kristin Orellana CRT Ht: 5 ft 1 in Wt: 181lbs BSA: 1.81 BP: 116/80 mmHg Indications: Congestive Heart Failure, Scleroderma, known EF 35-40% from [facility] 2D Dimensions LA Volume 21.60 mL LA Volume Index 11.70 mL/m2 (M/F) 16-34 M-Mode Dimensions RVDd 1.75 cm (0.9-2.6) LA Diam 3.35 cm (1.9-4.0) LVDd 4.75 cm (3.5-5.7) LVDs 3.93 cm (3.5-5.7) IVSd 1.28 cm (0.6-1.1) PWd 1.18 cm (0.6-1.1) EF (Teich) 36.00% FS 17.30% EDV (Teich) 104.90 mL TAPSE 2.95 (<1.7) ESV (Teich) 67.10 mL LV Diastology E Decel Time 90 (160-240 msec) E/A Ratio 7.41 MED A' 18.20 cm/s LAT A' 19.10 cm/s Aortic Valve AO Peak GR. 9.80 mmHg Mitral Valve MV E Max Moose. 99.0 (40-130 cm/s) MV A Velocity 13.0 (40-130 cm/s) E/A Ratio 7.41 MV PHT 26.0 ms Pulmonary Valve PV Peak Velocity 125.0 (50-150 cm/s) Tricuspid Valve TR P. Velocity 239.00 cm/s RAP Estimate 10.00 mmHg RVSP 32.90 mmHg Left Ventricle The left ventricle is normal size. There is moderate reduction in LV systolic function. There is increased LV wall thickness. There is moderate global hypokinesis present. The septal, inferoseptal, and anteroseptal LV mccarthy are severely hypokinetic. Diastolic function is indeterminate. LVEF is 35-40%. Right Ventricle The right ventricle is normal size. The right ventricular systolic function is normal. Atria The left atrium is mildly dilated. The right atrium size is normal. There is no Doppler evidence of interatrial shunt. Aortic Valve Aortic valve is mildly thickened. There is no aortic valvular stenosis. Trace aortic regurgitation. Mitral Valve The mitral valve is normal in structure. No evidence of mitral valve stenosis. Mild mitral regurgitation. Tricuspid Valve Tricuspid valve is grossly normal in structure and function. Trace tricuspid regurgitation. There is insufficient TR jet to estimate RVSP. Pulmonic Valve The pulmonary valve is normal in structure. Trace pulmonic regurgitation. Great Vessels The aortic root is normal in size. IVC is normal in size and collapses >50% with inspiration. Pericardium There is no pericardial effusion. Other Information Study Quality: Fair Conclusion Moderate reduction in LV systolic function (LVEF 35-40%). The septal, inferoseptal, and anteroseptal LV mccarthy are severely hypokinetic. Mild LA dilation. Mild MR. Electronically signed by : Emerita Ramsey MD 09/01/2024 00:16:08
--- OUTSIDE RECORDS SUMMARY | 2024-08-27 11:25 | XMS_ITS | Encounter Summary ---
Author Organization [employer] In [employer] Address [address] [place] [address] Care Team Providers Care Expressive Therapist Name Role Phone Unavailable Primary Care Provider Unavailabl e Encounter Details Date Type Department Care Team (Late st Contact Info) Description 09/04/2019 Transcribed Document [facility] [place] Family Medicine [facility] [place] [address] ProviderLeyda MD [address] [place] [address] [id number] Social History Tobacco Use Types Packs/Day Years Used Date Smoking Tobacco: Never Assessed Comments Unknown Sex and Gender Information Value Date Recorded Sex Assigned at Not on file Legal Sex Female 6:21 PM CDT Gender Identity Not on file Sexual Orientation Not on file documented as of this encounter Miscellaneous Notes * Cerner Conversion Note - Leyda Clark MD - 09/04/2019 10:12 AM CDT Patient Education Materials Follows: General Anesthesia, Adult, Care After This sheet gives you information about how to care for yourself after your procedure. Your health care provider may also give you more specific instructions. If you have problems or questions, contact your health care provider. What can I expect after the procedure? After the procedure, the following side effects are common: ??? Pain or discomfort at the IV site. ??? Nausea. ??? Vomiting. ??? Sore throat. ??? Trouble concentrating. ??? Feeling cold or chills. ??? Weak or tired. ??? Sleepiness and fatigue. ??? Soreness and body aches. These side effects can affect parts of the body that were not involved in surgery. Follow these instructions at home: For at least 24 hours after the procedure: ??? Have a responsible adult stay with you. It is important to have someone help care for you until you are awake and alert. ??? Rest as needed. ??? Do not: ? Participate in activities in which you could fall or become injured. ? Drive. ? Use heavy machinery. ? Drink alcohol. ? Take sleeping pills or medicines that cause drowsiness. ? Make important decisions or sign legal documents. ? Take care of children on your own. Eating and drinking ??? Follow any instructions from your health care provider about eating or drinking restrictions. ??? When you feel hungry, start by eating small amounts of foods that are soft and easy to digest (bland), such as toast. Gradually return to your regular diet. ??? Drink enough fluid to keep your urine pale yellow. ??? If you vomit, rehydrate by drinking water, juice, or clear broth. General instructions ??? If you have sleep apnea, surgery and certain medicines can increase your risk for breathing problems. Follow instructions from your health care provider about wearing your sleep device: ? Anytime you are sleeping, including during daytime naps. ? While taking prescription pain medicines, sleeping medicines, or medicines that make you drowsy. ??? Return to your normal activities as told by your health care provider. Ask your health care provider what activities are safe for you. ??? Take glvz-kvx-zmednyk and prescription medicines only as told by your health care provider. ??? If you smoke, do not smoke without supervision. ??? Keep all follow-up visits as told by your health care provider. This is important. Contact a health care provider if: ??? You have nausea or vomiting that does not get better with medicine. ??? You cannot eat or drink without vomiting. ??? You have pain that does not get better with medicine. ??? You are unable to pass urine. ??? You develop a skin rash. ??? You have a fever. ??? You have redness around your IV site that gets worse. Get help right away if: ??? You have difficulty breathing. ??? You have chest pain. ??? You have blood in your urine or stool, or you vomit blood. Summary ??? After the procedure, it is common to have a sore throat or nausea. It is also common to feel tired. ??? Have a responsible adult stay with you for the first 24 hours after general anesthesia. It is important to have someone help care for you until you are awake and alert. ??? When you feel hungry, start by eating small amounts of foods that are soft and easy to digest (bland), such as toast. Gradually return to your regular diet. ??? Drink enough fluid to keep your urine pale yellow. ??? Return to your normal activities as told by your health care provider. Ask your health care provider what activities are safe for you. This information is not intended to replace advice given to you by your health care provider. Make sure you discuss any questions you have with your health care provider. Document Released: 05/30/2001 Document Revised: 10/07/2017 Document Reviewed: 10/07/2017 [employer] Interactive Patient Education ? 2020 [employer]. Silveira's Esophagus Silveira's esophagus occurs when the tissue that lines the esophagus changes or becomes damaged. The esophagus is the tube that carries food from the throat to the stomach. With Silveira's esophagus, the cells that line the esophagus are replaced by cells that are similar to the lining of the intestines (intestinal metaplasia). Silveira's esophagus itself may not cause any symptoms. However, many people who have Silveira's esophagus also have gastroesophageal reflux disease (GERD), which may cause symptoms such as heartburn. Over time, a few people with this condition may develop cancer of the esophagus. Treatment may include medicines, procedures to destroy the abnormal cells, or surgery. What are the causes? The exact cause of this condition is not known. In some cases, the condition develops from damage to the lining of the esophagus caused by GERD. GERD occurs when stomach acids flow up from the stomach into the esophagus. Frequent symptoms of GERD may cause intestinal metaplasia or cause cell changes (dysplasia). What increases the risk? You are more likely to develop this condition if you: ??? Have GERD. ??? Are male. ??? Are . ??? Are obese. ??? Are older than 50. ??? Have a hiatal hernia. This is a condition in which part of your stomach bulges into your chest. ??? Smoke. What are the signs or symptoms? People with Silveira's esophagus often have no symptoms. However, many people with this condition also have GERD. Symptoms of GERD may include: ??? Heartburn. ??? Difficulty swallowing. ??? Dry cough. How is this diagnosed? This condition may be diagnosed based on: ??? Results of an upper gastrointestinal endoscopy. For this exam, a thin, flexible tube with a light and a camera on the end (endoscope) is passed down your esophagus. Your health care provider can view the inside of your esophagus during this procedure. ??? Results of a biopsy. For this procedure, several tissue samples are removed (biopsy) from your esophagus. They are then checked for intestinal metaplasia or dysplasia. How is this treated? Treatment for this condition may include: ??? Medicines (proton pump inhibitors, or PPIs) to decrease or stop GERD. ??? Periodic endoscopic exams to make sure that cancer is not developing. ??? A procedure or surgery for dysplasia. This may include: ? Removal or destruction of abnormal cells. ? Removal of part of the esophagus (esophagectomy). Follow these instructions at home: Eating and drinking ??? Eat more fruits and vegetables. ??? Avoid fatty foods. ??? Eat small, frequent meals instead of large meals. ??? Avoid foods that cause heartburn. These foods include: ? Coffee and alcoholic drinks. ? Tomatoes and foods made with tomatoes. ? [place] or spicy foods. ? Chocolate and peppermint. ??? Do not drink alcohol. General instructions ??? Take lpyz-eea-xzmvxof and prescription medicines only as told by your health care provider. ??? Do not use any products that contain nicotine or tobacco, such as cigarettes and e-cigarettes. If you need help quitting, ask your health care provider. ??? If you are being treated for GERD, make sure you take medicines and follow all instructions as told by your health care provider. ??? Keep all follow-up visits as told by your health care provider. This is important. Contact a health care provider if: ??? You have heartburn or GERD symptoms. ??? You have difficulty swallowing. Get help right away if: ??? You have chest pain. ??? You are unable to swallow. ??? You vomit blood or material that looks like coffee grounds. ??? Your stool (feces) is bright red or dark. Summary ??? Silveira's esophagus occurs when the tissue that lines the esophagus changes or becomes damaged. ??? Silveira's esophagus may be diagnosed with an upper gastrointestinal endoscopy and a biopsy. ??? Treatment may include medicines, procedures to remove abnormal cells, or surgery. ??? Follow your health care provider's instructions about what to eat and drink, what medicines to take, and when to call for help. This information is not intended to replace advice given to you by your health care provider. Make sure you discuss any questions you have with your health care provider. Document Released: 05/13/2004 Document Revised: 06/19/2018 Document Reviewed: 06/19/2018 [employer] Interactive Patient Education ? 2020 [employer]. documented in this encounter Plan of Treatment Not on file documented as of this encounter Visit Diagnoses Not on filedocumented in this encounter
--- OUTSIDE RECORDS SUMMARY | 2024-08-27 11:25 | XMS_ITS | Encounter Summary ---
Author Organization [facility] [employer] Address [address] [place] [address] Care Team Providers Care End Touching Machine Operator Name Role Phone Unavailable Primary Care Provider Unavailabl e Encounter Details Date Type Department Care Team (Late st Contact Info) Description 09/04/2019 Transcribed Document [facility] [place] Family Medicine [facility] [place] [address] ProviderLeyda MD [address] [place] [address] [id number] Social History Tobacco Use Types Packs/Day Years Used Date Smoking Tobacco: Never Assessed Comments Unknown Sex and Gender Information Value Date Recorded Sex Assigned at Not on file Legal Sex Female 6:21 PM CDT Gender Identity Not on file Sexual Orientation Not on file documented as of this encounter Miscellaneous Notes * Cerner Conversion Note - Leyda ProviderMD - 09/04/2019 9:45 AM CDT [facility] Endo IntraOp Summary Primary Physician: ZINA STEELE MD-GAE Finalized Date/Time: 09/26/19 10:38:41 Pt. Name: FADI MELINDA WOODY /Sex: 1975 Female Med Rec #: [id number] Physician: ZINA STEELE MD-GAE Financial #: [id number] Pt. Type: O Room/Bed: END/ Admit/Disch: 09/04/19 08:25:00 - 09/04/19 16:27:00 Institution: [facility] Endo - Case Attendance Entry 1 Entry 2 Entry 3 Case Attendee ZINA STEELE MD-GAE MILLER, MELISSA A, RN WURTELE, JOHN L. Role Performed Surgeon/Proceduralist, Stringing Machine Tender, First Scrub, First First Time In 09/04/19 09:37:00 09/04/19 09:37:00 09/04/19 09:37:00 Time Out 09/04/19 09:54:00 09/04/19 09:54:00 09/04/19 09:54:00 Procedure Esophagogastroduodenosco Esophagogastroduodenosco Esophagogastroduodenosco py, Esophageal Biopsy py, Esophageal Biopsy py, Esophageal Biopsy Other Attendee Superficial Wound Closed By: Last Modified By: STEPHENIE EVANGELISTA, STEPHENIE FUNK RN MILLER, MELISSA A, RN 09/04/19 09:52:13 09/04/19 09:52:13 09/04/19 09:52:13 Entry 4 Entry 5 Case Attendee SAMMIE RODRIGUEZ MD-ANS VON KUSTER, MARIE LYNNETTE, [employer] Role Performed Anesthesiologist of [employer]/Nurse Digital Campaign Specialist Record Time In 09/04/19 09:37:00 09/04/19 09:37:00 Time Out 09/04/19 09:54:00 09/04/19 09:54:00 Procedure Esophagogastroduodenosco Esophagogastroduodenosco py, Esophageal Biopsy py, Esophageal Biopsy Other Attendee Superficial Wound Closed By: Last Modified By: STEPHENIE EVANGELISTA RN MILLER, MELISSA A, RN 09/04/19 09:52:13 09/04/19 09:52:13 [facility] Endo - Case Attendance Audit 09/04/19 09:52:13 Pocket Operator: KARLY Modifier: KARLY 1 <+> Time Out 1 <*> Procedure Esophagogastroduodenoscopy, Esophageal Biopsy 2 <+> Time Out 2 <*> Procedure Esophagogastroduodenoscopy, Esophageal Biopsy 3 <+> Time Out 3 <*> Procedure Esophagogastroduodenoscopy, Esophageal Biopsy 4 <+> Time Out 4 <*> Procedure Esophagogastroduodenoscopy, Esophageal Biopsy 5 <+> Time Out 5 <*> Procedure Esophagogastroduodenoscopy, Esophageal Biopsy 09/04/19 09:49:17 Pocket Operator: KARLY Modifier: KARLY 1 <+> Time In 1 <*> Procedure Esophagogastroduodenoscopy 2 <+> Time In 2 <*> Procedure Esophagogastroduodenoscopy 3 <+> Time In 3 <*> Procedure Esophagogastroduodenoscopy 4 <+> Time In 4 <*> Procedure Esophagogastroduodenoscopy 5 <+> Time In 5 <*> Procedure Esophagogastroduodenoscopy 09/04/19 09:38:36 Pocket Operator: KARLY Modifier: TONJAMA <+> 2 Case Attendee <+> 2 Role Performed <+> 2 Procedure <+> 3 Case Attendee <+> 3 Role Performed <+> 3 Procedure <+> 4 Case Attendee <+> 4 Role Performed <+> 4 Procedure <+> 5 Case Attendee <+> 5 Role Performed <+> 5 Procedure [facility] Endo - Case times Entry 1 Patient In Room Time 09/04/19 09:37:00 Out Room Time 09/04/19 09:54:00 Anesthesia Start Time 09/04/19 09:37:00 Stop Time 09/04/19 09:54:00 Surgery / Procedure Times Start Time 09/04/19 09:45:00 Stop Time 09/04/19 09:51:00 Last Modified By: STEPHENIE EVANGELISTA RN 09/04/19 09:52:02 [facility] Endo - Case times Audit 09/04/19 09:52:02 Pocket Operator: TONJAPRIMO Modifier: TONJAMA <+> 1 Out Room Time <+> 1 Stop Time <+> 1 Stop Time 09/04/19 09:45:29 Pocket Operator: KARLY Modifier: KARLY <+> 1 Start Time [facility] Endo - Cultures and Spec Summary Entry 1 Cultrures and Specimens Specimen Ordered: Yes Test(s) Routine/Path-Lab Requested/Final Disposition Last Modified By: STEPHENIE EVANGELISTA RN 09/04/19 09:49:51 [facility] Endo - Delays Entry 1 Delay Reason Other, No Delay Duration 0 Minute(s) Last Modified By: STEPHENIE EVANGELISTA RN 09/04/19 09:38:45 [facility] Endo - Departure from OR Entry 1 Integumentary Assessment Integumentary WDL Assessment WDL Transfer/Handoff Transfer to PACU Phase I Handoff Method Bedside/Face to face Post-op Transport Stretcher/Gurney Via Patient Transport STEPHENIE EVANGELISTA RN, Accompanied by EMMANUEL RAYMOND CRNA Last Modified By: STEPHENIE EVANGELISTA RN 09/04/19 09:38:48 [facility] Endo - Endoscopy Details Entry 1 Abdomen Procedure Soft, Non-Tender Assessment Procedure Abdomen 09/04/19 09:38:00 Assessment D/T Radio Frequency Ablation Abdominal Pressure Last Modified By: STEPHENIE EVANGELISTA RN 09/04/19 09:38:52 [facility] Endo - Fire Risk Assessment Entry 1 Fire Info Surgical Site or 1- Yes Incision Above the Xyphoid Open O2 Source 1- Yes (Mask or Cannula) Available Ignition 1- Yes (ESU, Laser, Light Source) Fire Risk 3 Assessment Score Fire Score Fire Risk Yes Assessment Complete Fire Risk STEPHENIE EVANGELISTA RN Assessment Verified By Fire Risk 09/04/19 09:38:00 Assessment Verified Date/Time Fire Risk High Risk Protocol Yes Implemented Standard Fire Yes Safety Precautions Followed Last Modified By: STEPHENIE EVANGELISTA RN 09/04/19 09:38:54 [facility] Endo - General Case Market Manager 1 Case Information OR Endo [facility] Case Level 1 Room Verified Yes Wound Class II - Clean-Contaminated Specialty SN Gastroenterology Anesthesia Type General ASA Class 2 Diagnosis Preop Diagnosis hx of barretts Postop Same As Preop Yes Postop Diagnosis hx of barretts Last Modified By: STEPHENIE EVANGELISTA RN 09/04/19 09:39:11 [facility] Endo - Intraoperative Assessment Entry 1 Valid History / Yes Physical in Chart Preoperative Yes Checklist Reviewed/Evaluated Patient is Latex No Sensitive Level of WDL Consciousness (WDL = Alert, Oriented to Person, Place, and Time) Last Modified By: STEPHENIE EVANGELISTA RN 09/04/19 09:39:12 [facility] Endo - Intraoperative Equipment Entry 1 Equipment Intraop Monitoring Electrocardiogram Three lead placement (ECG) Electrode Placement Blood Pressure Arm, left upper Location Pulse Oximeter Hand, right Probe Site Antiembolic Devices Scopes Flexible Endoscopes Gastroscope Used Scope Serial A Number/Identificatio n Number Photo/Video Documentation Photo Yes Video No Last Modified By: STEPHENIE EVANGELISTA RN 09/04/19 09:39:20 [facility] Endo - Intraoperative Equipment Audit 09/04/19 09:39:20 Pocket Operator: KARLY Modifier: KARLY <+> 1 Photo <+> 1 Video <+> 1 Blood Pressure Location <+> 1 Pulse Oximeter Probe Site <+> 1 Flexible Endoscopes Used <+> 1 Scope Serial Number/Identification Number [facility] Endo - Patient Positioning Entry 1 Procedure Esophagogastroduodenosco py, Esophageal Biopsy Body Position Lateral, right side up Left Arm Position Resting at side Right Arm Position Resting at side Left Leg Position Other Right Leg Position Other Position Comments Right leg over left leg, uncrossed Feet Uncrossed Yes Pressure Points Yes Checked Positioned By STEPHENIE EVANGELISTA RN Position Verified Positioning Yes Verified by Surgeon Last Modified By: STEPHENIE EVANGELISTA RN 09/04/19 09:49:18 [facility] Endo - Patient Positioning Audit 09/04/19 09:49:18 Pocket Operator: KARLY Modifier: KARLY 1 <*> Procedure Esophagogastroduodenoscopy [facility] Endo - Sign In Entry 1 Patient, Site, Yes Procedure Identified Surgical Consent Yes Confirmed Surgical Site N/A Marked by person performing procedure Airway Hypothermia Risk No Warming Measures No Taken Last Modified By: STEPHENIE EVANGELISTA RN 09/04/19 09:39:28 [facility] Endo - Sign Out Entry 1 RN Confirmation Surgical Yes Procedure(s) Identified Instrument, Sponge N/A and Sharps Counts Correct/Documented Equipment Problems N/A Documented Specimen Labeled Yes Correctly Urinary Catheter N/A Documented in IView Safety Checklist Yes Elements Complete? RN Sign Out STEPHENIE EVANGELISTA RN Signature RN Sign Out 09/04/19 09:54:00 Signature Date/Time Plan of Care Outcome - Fire Risk OUTCOME STATEMENT: Goal met Patient is free from injury related to surgical fire Plan of Care Outcome - Pt Positioning OUTCOME STATEMENT: Goal met Absence of signs and symptoms of positioning injury. Plan of Care Outcome - Skin Prep OUTCOME STATEMENT: Goal met Intraoperative care is consistent with measures to prevent infection Plan of Care Outcome - Xray/Images OUTCOME STATEMENT: N/A Absence of observable signs or symptoms of radiation injury Plan of Care Outcome - Counts OUTCOME STATEMENT: N/A Absence of signs and symptoms of injury related to extraneous objects Last Modified By: STEPHENIE EVANGELISTA RN 09/04/19 09:52:08 [facility] Endo - Surgical Procedures Entry 1 Entry 2 Procedure Esophagogastroduodenosco Esophageal Biopsy py Modifiers Additional distal esophageal bx Procedure Description Primary Procedure Yes No Primary Surgeon ZINA STEELE MD-GAE MARTIN, KATHLEEN, MD-GAE Start 09/04/19 09:45:00 06/30/20 09:45:00 Stop 09/04/19 09:51:00 09/04/19 09:51:00 Physician States Cecum Reached Anesthesia Type MAC MAC Specialty SN Gastroenterology SN Gastroenterology Wound Class II - Clean-Contaminated II - Clean-Contaminated Last Modified By: STEPHENIE EVANGELISTA RN MILLER, MELISSA A, RN 09/04/19 09:52:11 09/04/19 09:52:11 [facility] Endo - Surgical Procedures Audit 09/04/19 09:52:11 Pocket Operator: KARLY Modifier: MILLERMA <+> 1 Stop <+> 2 Stop 09/04/19 09:49:16 Pocket Operator: KARLY Modifier: MILLERMA <+> 2 Procedure <+> 2 Primary Procedure <+> 2 Primary Surgeon <+> 2 Specialty <+> 2 Start <+> 2 Wound Class <+> 2 Anesthesia Type <+> 2 Additional Procedure Description 09/04/19 09:45:40 Pocket Operator: KARLY Modifier: TONJAMA <+> 1 Start [facility] Endo - Time Out Entry 1 Procedure to be Esophagogastroduodenosco Performed py, Esophageal Biopsy Time Out Time Out Pause Time 09/04/19 09:42:00 All activity Yes suspended (unless life threatening emergency) Team Verbally Correct patient Confirms Information identity, Consent form is present and accurate, Agreement on the procedure to be done, Correct patient position, Relevant images/results properly labeled/appropriately displayed, Reconcile problems if responses among team members differ Antibiotic N/A Prophylaxis Administered Or In Progress Within the Last 60 Minutes Beta Dolly N/A Administered Venous N/A Thromboembolism Prophylaxis Required Anticipated Critical Events Surgeon None expected Last Modified By: STEPHENIE EVANGELISTA RN 09/04/19 09:49:18 [facility] Endo - Time Out Audit 09/04/19 09:49:18 Pocket Operator: KARLY Modifier: KARLY 1 <*> Procedure to be Performed Esophagogastroduodenoscopy Case Comments <None> Finalized By: Lnida May Rn Document Signatures Signed By: STEPHENIE EVANGELISTA RN 09/04/19 09:52 Linda May Rn 09/26/19 10:38 Unfinalized History Date/Time Username Reason for Unfinalizing Freetext Reason for Unfinalizing 09/26/19 10:36 MFWARD Correct Billing Electronically signed by Interface, Soham Conversion Adhesive Bandage Making Operator Cerner at 06/22/2022 9:29 AM CDT documented in this encounter Plan of Treatment Not on file documented as of this encounter Visit Diagnoses Not on filedocumented in this encounter
--- OUTSIDE RECORDS SUMMARY | 2024-08-27 11:25 | XMS_ITS | Encounter Summary ---
Author Organization [facility] [employer] Address [address] [place] [address] Care Team Providers Care Central Communications Specialist Name Role Phone Unavailable Primary Care Provider Unavailabl e Encounter Details Date Type Department Care Team (Late st Contact Info) Description 09/04/2019 Transcribed Document [facility] [place] Family [place] [facility] [place] [address] ProviderLeyda MD [address] [place] [address] [phone] Social History Tobacco Use Types Packs/Day Years Used Date Smoking Tobacco: Never Assessed Comments Unknown Sex and Gender Information Value Date Recorded Sex Assigned at Not on file Legal Sex Female 6:21 PM CDT Gender Identity Not on file Sexual Orientation Not on file documented as of this encounter Miscellaneous Notes * Cerner Conversion Note - Leyda ProviderMD - 09/04/2019 9:45 AM CDT [facility] PACU Summary Primary Physician: ZINA STEELE MD-GAE Finalized Date/Time: 09/04/19 10:20:18 Pt. Name: MELINDA APONTE /Sex: 1975 Female Med Rec #: [id number] Physician: ZINA STEELE MD-GAE Financial #: [id number] Pt. Type: O Room/Bed: END/ Admit/Disch: 09/04/19 08:25:00 - Institution: [facility] PACU Case Times Entry 1 In PACU I 09/04/19 09:56:00 Ready for PACU 09/04/19 10:20:00 Discharge Discharge from PACU 09/04/19 10:20:00 I Last Modified By: Heather Hernandez RN 09/04/19 10:20:14 [facility] PACU Case Times Audit 09/04/19 10:20:14 Senior Materials Scientist: [id number] Modifier: [id number] <+> 1 Ready for PACU Discharge <+> 1 Discharge from PACU I Finalized By: Heather Hernandez, RN Document Signatures Signed By: Heather Hernandez RN 09/04/19 10:20 documented in this encounter Plan of Treatment Not on file documented as of this encounter Visit Diagnoses Not on filedocumented in this encounter
--- OUTSIDE RECORDS SUMMARY | 2024-08-27 11:25 | XMS_ITS | Encounter Summary ---
Author Organization [employer] Address [address] [place] [address] Care Team Providers Care Technical Manager Chemical Plant Name Role Phone Unavailable Primary Care Provider Unavailabl e Encounter Details Date Type Department Care Team (Late st Contact Info) Description 10/06/2018 Transcribed Document [facility] [place] [facility] [place] [address] ProviderLeyda MD [address] [place] [address] [id number] Social History Tobacco Use Types Packs/Day Years Used Date Smoking Tobacco: Never Assessed Comments Unknown Sex and Gender Information Value Date Recorded Sex Assigned at Not on file Legal Sex Female 6:21 PM CDT Gender Identity Not on file Sexual Orientation Not on file documented as of this encounter Miscellaneous Notes * Cerner Conversion Note - Leyda Clark MD - 10/06/2018 7:16 AM CDT DATE OF PROCEDURE: 09/29/2018 PREOPERATIVE DIAGNOSIS(ES): Reflux and hiatal hernia. POSTOPERATIVE DIAGNOSIS(ES): Reflux and hiatal hernia. PROCEDURE: 1. Laparoscopic repair of hiatal hernia with Bio-A surgical matrix 2. Laparoscopic Toupet fundoplication. SURGEON: Daniel Jang MD END TRIMMER: Marcel OPERATION/PROCEDURE DESCRIPTION: After obtaining informed consent, the patient was taken to the operating room. General anesthesia was induced and the patient's abdomen was prepped and draped in standard surgical fashion. A supraumbilical incision was made. The Veress needle was inserted. The abdomen was insufflated with carbon dioxide gas and the protected trocar was then placed. The remaining trocars were placed under direct vision. The liver was elevated. There was no evidence of any abnormalities and the left and right diaphragmatic crura were dissected in two plane view. They were dissected free posteriorly. Attention was paid to the mid body of the stomach and the short gastric vessels were divided from the mid body of the stomach up to the level of the left diaphragmatic christelle. All the retrogastric attachments in this area were divided as well. Attention was then paid to the crura and they were reapproximated with nonabsorbable suture. The stomach was then passed behind itself posterior to the esophagus and the anesthesiologist then advanced a 56-Tamazight bougie through the mouth, through the stomach, into the stomach cannulating the pylorus. The patient then had a 270 degree Toupet style wrap created at the level of the GE junction. It was done with four interrupted sutures. A piece of Bio-A surgical matrix was cut in a keyhole fashion and attached anteriorly and posteriorly to the diaphragm around the esophagus. There was no kinking or torsion of the wrap upon the completion of this. Patient tolerated everything very well. The liver retractor was removed. Trocars were removed. Supraumbilical trocar site was closed with interrupted Vicryl suture. All needle, instrument, and sponge counts were correct. The trocars were removed. Incisions were closed. Sterile dressings were applied. Patient was awakened, extubated, and taken to recovery room in stable condition. Daniel Jang M.D. Dict: 10/06/2018 07:16:15 Trans: 10/06/2018 07:37:42 CC1: Daniel Jang M.D. Electronically signed by Ernesto Betancourt Conversion Pharmacy Operations Specialist Cerner at 06/22/2022 9:38 AM CDT documented in this encounter Plan of Treatment Not on file documented as of this encounter Visit Diagnoses Not on filedocumented in this encounter
--- OUTSIDE RECORDS SUMMARY | 2024-08-27 11:25 | XMS_ITS | Encounter Summary ---
Author Organization [employer] Address [address] [place] [address] Care Team Providers Care Job Estimator Name Role Phone Unavailable Primary Care Provider Unavailabl e Encounter Details Date Type Department Care Team (Late st Contact Info) Description 09/04/2019 Transcribed Document [facility] [place] Family Medicine [address] [place] [address] ProviderLeyda MD [address] [place] [id number] Social History Tobacco Use Types Packs/Day Years [...] Clark MD - 09/04/2019 10:12 AM CDT [facility] [place] [address] MELINDA APONTE :1975 Visit Time:09/04/2019 What to do next Follow-Up Appointments Follow Up with ZINA STEELE When Comments repeat EGD in 5 years biopsy report willl be mailed to you in 7-10 days Where: [address] [place] [address]- Business (1) Medications What How Much When Instructions Next Dose estradiol 2 Milligram(s) Oral Every Day omeprazole 40 Milligram(s) Oral Every Day Take your medications faithfully. Do NOT skip medication. Do NOT stop taking medications without the direction of a physician. Carry a list of your medications with you at all times, and take this medication list with you to your first follow up visit. Report any side effects. Avoid herbal remedies unless discussed with your physician. As part of your treatment plan, your physician may have prescribed a limited course of a controlled substance. This medication may be given to help people with moderate or severe pain or for other medical conditions, but there are risks involved with treatment. Common side effects may include nausea, constipation, drowsiness, sweating, itching, dry mouth, and rash. More serious side effects may include cognitive and motor impairment, like problems with thinking, concentrating, alertness, and movement (e.g. slowed reflexes), and driving and operating heavy machinery can be dangerous. It is important for you to talk to your physician if you have these side effects or questions. These controlled substances can produce physical dependence and be habit-forming if taken for an extended period of time, which means that the body has gotten used to them and may experience withdrawal symptoms if they are abruptly stopped. Withdrawal symptoms can include runny nose, sweating, goose bumps, diarrhea, abdominal cramping, rapid heartbeat, difficulty sleeping, and nervousness. Please dispose of unused and medications per pharmacy guidance. Education Materials General Anesthesia, Adult, Care After This sheet [...] activities are safe for you. ??? Take [id number]-[id number] and prescription medicines only as told by [...] 05/30/2001 Document Revised: 10/07/2017 Document Reviewed: 10/07/2017 Interface21 Interactive Patient Education ?? 2020 [employer]. Silveira's Esophagus Silveira's esophagus occurs when the [...] Tomatoes and foods made with tomatoes. ? Bliss or spicy foods. ? Chocolate and peppermint. ??? Do not drink alcohol. General instructions ??? Take tqfk-udk-dyaigef and prescription medicines only as told by [...] 05/13/2004 Document Revised: 06/19/2018 Document Reviewed: 06/19/2018 Interface21 Interactive Patient Education ?? 2020 [employer]. Emergency Awareness and Preventative Care STROKE is an EMERGENCY Every Minute Counts Act FAST and Check for these signs: FACE Does the face look uneven? ARM Does one arm drift down? SPEECH Does their speech sound strange? TIME Call at any sign of stroke Stroke Risk Factors Atrial Fibrillation (irregular heartbeat) Diabetes Family history of stroke Heart Disease Heavy alcohol use High Blood Pressure High Cholesterol Physical inactivity and obesity Smoking Cigarette Smoking The facts are clear, cigarette smoking will shorten your life. Smoking can cause many illnesses along the way. As a healthcare provider, we recommend that you stop smoking. Assistance with quitting is available by contacting 4-806-UAZI-NOW. This is a free resource providing counseling, support, and referral. Or you may contact your personal physician. National Suicide Prevention Lifeline: The National Suicide Prevention Lifeline is a national network of local crisis centers that provides free and confidential emotional support to people in suicidal crisis or emotional distress 24 hours a day, 7 days a week. Don't Wait! Stop a Heart Attack Before it Starts What is a heart attack? A heart attack is damage or to a part of the heart from severely decreased or lack of blood flow to the heart. Over time, arteries can become narrow from the buildup of fat and cholesterol, which is called plaque. The plaque can rupture causing a blood clot to form. When the blood clot forms, the artery can become severely narrowed or completely blocked, causing a heart attack. Heart attack is the leading cause of in the [place]. 85% of muscle damage occurs within the first 2 hours. Delay in the recognition of heart attack symptoms increases the chances of . Know the early symptoms of a heart attack: Nausea Feeling of fullness in chest Jaw Pain Pain that travels down one or both arms Fatigue/being tired Anxiety Back Pain Chest pressure, squeezing, or discomfort Shortness of breath Sweating, or a cold sweat Feeling of impending doom There are unusual signs of a heart attack, too! Women, the elderly, and diabetics may present with atypical symptoms: Fainting/dizziness Weakness Confusion Risk Factors for a Heart Attack Some heart disease risk factors, such as age and family history, cannot be changed. Others, like smoking and lack of exercise, can be changed. Smoking High Cholesterol High Blood Pressure Family History Obesity Age Gender (Males are at higher risk) Lack of Exercise Diabetes Diet Stress Excessive Alcohol Intake If you or someone you know is experiencing the signs and symptoms of a heart attack, DON???T DELAY. Call immediately and seek help. If someone collapses, perform CPR! Do not attempt to drive if you are having symptoms of heart attack. Hands-Only CPR Why Hands-Only CPR? Hands-Only CPR has been shown to be as effective as conventional CPR for cardiac arrests that occur outside of a hospital. Survival depends on immediately receiving CPR from someone nearby. How do you perform Hands-Only CPR? There are two easy steps: Call if you see a teen or adult collapse Push hard and fast in the center of the chest at a beat of 100 beats per minute. Save a life! 4 WAYS TO GET AHEAD OF SEPSIS SEPSIS is a MEDICAL EMERGENCY. Time matters! Infections put you and your family at risk for a life-threatening condition called sepsis. Sepsis is the body's extreme response to an infection. It is life-threatening, and without timely treatment, sepsis can rapidly lead to tissue damage, organ failure, and . Sepsis happens when an infection you already have-in your skin, lungs, urinary tract or somewhere else-triggers a chain reaction throughout your body. 1 PREVENT INFECTIONS Take good care of chronic conditions. Talk to your doctor about getting the recommended vaccines. 2 PRACTICE GOOD HYGIENE Wash your hands frequently. Keep cuts or open sores clean and covered until they are healed. 3 KNOW THE SYMPTOMS Confusion or disorientation Shortness of breath High heart rate Fever, shivering, or feeling very cold Extreme pain or discomfort Clammy or sweaty skin 4 ACT FAST Get medical care IMMEDIATELY if you suspect sepsis or if you have an infection that is not getting better or is getting worse. To learn more about sepsis and how to prevent infections, visit www.cdc.gov/sepsis. Test Results Laboratory or Other Results This Visit (last charted value for your 09/04/2019 visit) Microbiology 08/31/2019 2:00 PM Novel Coronavirus 2019: Negative Patient Name:MELINDA APONTE I have received this information and was given the opportunity to ask questions. Patient/Fire Crew Specialist Name: Patient/Fire Crew Specialist Signature: Relationship to Patient: Clinician/Hospital Fire Crew Specialist Signature: Date: documented in this encounter Plan of Treatment Not on file documented as of this encounter Visit Diagnoses Not on filedocumented in this encounter
--- OUTSIDE RECORDS SUMMARY | 2024-08-27 11:26 | XMS_ITS | Encounter Summary ---
Author Organization [employer] Address [address] [place] [address] Care Team Providers Care Bilingual Executive Assistant Name Role Phone Unavailable Primary Care Provider Unavailabl e Encounter Details Date Type Department Care Team (Late st Contact Info) Description 05/25/2018 Transcribed Document [facility] [place] [address] [place] [address] ProviderLeyda [place] [address] Social History Tobacco Use Types Packs/Day Years Used Date Smoking Tobacco: Never Assessed Comments Unknown Sex and Gender Information Value Date Recorded Sex Assigned at Not on file Legal Sex Female 6:21 PM CDT Gender Identity Not on file Sexual Orientation Not on file documented as of this encounter Miscellaneous Notes * Cerner Conversion Note - Leyda ProviderMD - 05/25/2018 3:16 PM CDT Nursing Discharge Summary Entered On: 05/25/2018 15:16 EDT Performed On: 05/25/2018 15:16 EDT by Nely Vitale Rn Discharge Documentation Patient Disposition, General : Discharge Discharge To : Home without planned follow-up Mode Of Departure, General Discharge : Private vehicle Accompanied By, Discharge : Spouse IV Discontinued : Yes Personal Belongings With Patient : Yes Patient Education Completed : Yes Teaching Method : Explanation Teaching Evaluation : Verbalizes understanding Nely Vitale Rn - 05/25/2018 15:16 EDT documented in this encounter Plan of Treatment Not on file documented as of this encounter Visit Diagnoses Not on filedocumented in this encounter
--- OUTSIDE RECORDS SUMMARY | 2024-08-27 11:26 | XMS_ITS | Encounter Summary ---
Author Organization [facility] [employer] Address [address] [place] [address] Care Team Providers Care Slat Basket Top Maker Name Role Phone Unavailable Primary Care Provider Unavailabl e Encounter Details Date Type Department Care Team (Late st Contact Info) Description 09/29/2018 Transcribed Document [facility] [place] [address] [place] [address] ProviderLeyda MD [address] [place] [address] [id number] Social History Tobacco Use Types Packs/Day Years Used Date Smoking Tobacco: Never Assessed Comments Unknown Sex and Gender Information Value Date Recorded Sex Assigned at Not on file Legal Sex Female 6:21 PM CDT Gender Identity Not on file Sexual Orientation Not on file documented as of this encounter Miscellaneous Notes * Cerner Conversion Note - Leyda ProviderMD - 09/29/2018 1:10 PM CDT [facility] Main OR PreOp Summary Primary Physician: SAMAN THOMPSON MD Finalized Date/Time: 09/29/18 14:31:44 Pt. Name: MELINDA APONTE /Sex: 1975 Female Med Rec #: [id number] Physician: SAMAN THOMPSON MD Financial #: [id number] Pt. Type: O Room/Bed: [facility]/4 Admit/Disch: 09/29/18 11:27:00 - Institution: [facility] PreOp Case Times Entry 1 In Preop 09/29/18 11:40:00 Ready for Holding n/a Room Patient Ready for 09/29/18 12:26:00 Surgery Patient Out of Preop 09/29/18 14:19:00 Patient Out of n/a Holding Room Last Modified By: ALYSE MIKE 09/29/18 14:31:43 SJJosef PreOp Case Times Audit 09/29/18 14:31:43 Custom Leather Products Maker: HILLARY Modifier: [email or web address] <+> 1 Patient Out of Preop Finalized By: ALYSE MIKE Document Signatures Signed By: ALYSE MIKE 09/29/18 14:31 documented in this encounter Plan of Treatment Not on file documented as of this encounter Visit Diagnoses Not on filedocumented in this encounter
--- OUTSIDE RECORDS SUMMARY | 2024-08-27 11:26 | XMS_ITS | Encounter Summary ---
Author Organization [facility] [employer] Address [address] [place] [address] Care Team Providers Care Bible Reader Name Role Phone Unavailable Primary Care Provider Unavailabl e Encounter Details Date Type Department Care Team (Late st Contact Info) Description 03/26/2021 Transcribed Document [facility] [place] [facility] [place] [address] ProviderLeyda MD [address] [place] [phone] Social History Tobacco Use Types Packs/Day Years Used Date Smoking Tobacco: Never Assessed Comments Unknown Sex and Gender Information Value Date Recorded Sex Assigned at Not on file Legal Sex Female 6:21 PM CDT Gender Identity Not on file Sexual Orientation Not on file documented as of this encounter Miscellaneous Notes * Cerner Conversion Note - Leyda ProviderMD - 03/26/2021 11:01 AM COW WASHER [facility] Main OR PostOp Summary Primary Physician: MARY TOMAS MD-SUR Finalized Date/Time: 03/26/21 14:29:16 Pt. Name: MELINDA APONTE /Sex: 1975 Female Med Rec #: [id number] Physician: MARY TOMAS MD-JIMY Financial #: [id number] Pt. Type: O Room/Bed: Admit/Disch: 03/26/21 08:37:00 - Institution: [facility] Main OR PostOp Case Times Entry 1 In PACU II 03/26/21 12:57:00 Ready for PACU II 03/26/21 14:25:00 Discharge Discharge from PACU 03/26/21 14:25:00 II Last Modified By: MARINO BLUM RN 03/26/21 14:29:08 Finalized By: MARINO BLUM RN Document Signatures Signed By: MARINO BLUM RN 03/26/21 14:29 Electronically signed by Serafin [facility] Conversion Greige Goods Inspector Cerner at 06/22/2022 9:26 AM CDT documented in this encounter Plan of Treatment Not on file documented as of this encounter Visit Diagnoses Not on filedocumented in this encounter
--- OUTSIDE RECORDS SUMMARY | 2024-08-27 11:26 | XMS_ITS | Encounter Summary ---
Author Organization [employer] Address [address] [place] [address] Care Team Providers Care Field Operations Manager Name Role Phone Unavailable Primary Care Provider Unavailabl e Encounter Details Date Type Department Care Team (Late st Contact Info) Description 09/30/2018 Transcribed Document [facility] [place] Family Medicine [address] [place] [address] ProviderLeyda MD [address] [place] [phone] Social History Tobacco Use Types Packs/Day Years Used Date Smoking Tobacco: Never Assessed Comments Unknown Sex and Gender Information Value Date Recorded Sex Assigned at Not on file Legal Sex Female 6:21 PM CDT Gender Identity Not on file Sexual Orientation Not on file documented as of this encounter Miscellaneous Notes * Cerner Conversion Note - Leyda ProviderMD - 09/30/2018 2:00 AM CDT District Branch Manager Details Entered On: 09/30/2018 0:46 EDT Performed On: 09/30/2018 2:00 EDT by Lawson Garces RN Order Details Transport Mode Order Detail : Wheelchair Isolation Precautions Order Detail : Standard Precautions Order Detail : 0 IV Order Detail : 1 Oxygen Order Detail : 1 Nurse Collect Order Detail : 0 Lift/Transfer : Minimal Central Line Order Detail : No Room Service : Not Appropriate Arterial Line : No Lawson Garces RN - 09/30/2018 0:46 EDT documented in this encounter Plan of Treatment Not on file documented as of this encounter Visit Diagnoses Not on filedocumented in this encounter
--- OUTSIDE RECORDS SUMMARY | 2024-08-27 11:26 | XMS_ITS | Encounter Summary ---
Author Organization [facility] [employer] Address [address] [place] [address] Care Team Providers Care Soil Technician Name Role Phone Unavailable Primary Care Provider Unavailabl e Encounter Details Date Type Department Care Team (Late st Contact Info) Description 03/26/2021 Transcribed Document [facility] [place] [facility] [place] [address] ProviderLeyda MD [address] [place] [address] [phone] Social History Tobacco Use Types Packs/Day Years Used Date Smoking Tobacco: Never Assessed Comments Unknown Sex and Gender Information Value Date Recorded Sex Assigned at Not on file Legal Sex Female 6:21 PM CDT Gender Identity Not on file Sexual Orientation Not on file documented as of this encounter Miscellaneous Notes * Cerner Conversion Note - Leyda ProviderMD - 03/26/2021 11:01 AM POSTDOCTORAL SCHOLAR [facility] Main OR Preop Summary Primary Physician: MARY TOMAS MD-SUR Finalized Date/Time: 03/26/21 12:33:31 Pt. Name: MELINDA APONTE /Sex: 1975 Female Med Rec #: [id number] Physician: MARY TOMAS MD-JIMY Financial #: [id number] Pt. Type: O Room/Bed: Admit/Disch: 03/26/21 08:37:00 - Institution: [facility] PreOp Case Times Entry 1 In Preop 03/26/21 08:56:00 Ready for Holding n/a Room Patient Ready for 03/26/21 10:22:00 Surgery Patient Out of Preop 03/26/21 10:31:00 Patient Out of n/a Holding Room Last Modified By: Linda May Rn 03/26/21 12:33:29 [facility] PreOp Case Times Audit 03/26/21 12:33:29 Brake Repairer Hydraulic: REYNA Modifier: MFWARD <+> 1 Patient Out of Preop 03/26/21 10:22:05 Brake Repairer Hydraulic: [email or web address] Modifier: [email or web address] <+> 1 Patient Ready for Surgery Finalized By: Linda May Rn Document Signatures Signed By: Linda May Rn 03/26/21 12:33 Electronically signed by Serafin [facility] Conversion Machine Bookkeeper Cerner at 06/22/2022 9:24 AM CDT documented in this encounter Plan of Treatment Not on file documented as of this encounter Visit Diagnoses Not on filedocumented in this encounter
--- OUTSIDE RECORDS SUMMARY | 2024-08-27 11:26 | XMS_ITS | Encounter Summary ---
Author Organization [employer] Address [address] [place] [address] Care Team Providers Care Vector Control Assistant Name Role Phone Unavailable Primary Care Provider Unavailabl e Encounter Details Date Type Department Care Team (Late st Contact Info) Description 09/29/2018 Transcribed Document [facility] [place] Family Medicine [facility] [place] [address] ProviderLeyda MD [address] [place] [id number] Social History Tobacco Use Types Packs/Day Years Used Date Smoking Tobacco: Never Assessed Comments Unknown Sex and Gender Information Value Date Recorded Sex Assigned at Not on file Legal Sex Female 6:21 PM CDT Gender Identity Not on file Sexual Orientation Not on file documented as of this encounter Miscellaneous Notes * Cerner Conversion Note - Leyda ProviderMD - 09/29/2018 2:43 PM CDT [facility] Main OR IntraOp Summary Primary Physician: SAMAN THOMPSON MD Finalized Date/Time: 09/29/18 15:47:14 Pt. Name: HECTOR MELINDA GORAN /Sex: 1975 Female Med Rec #: [id number] Physician: SAMAN THOMPSON MD Financial #: [id number] Pt. Type: O Room/Bed: [facility]/4 Admit/Disch: 09/29/18 11:27:00 - Institution: [facility] [place] IntraOp Case Attendance Entry 1 Entry 2 Entry 3 Case Attendee SAMAN THOMPSON MD ZARAK, ALBERTO, MD STULL, KELSI A, WOLFGANG Role Performed Surgeon/Proceduralist, Surgeon/Proceduralist, MARKING DEVICES ASSEMBLER/Nurse Math And Science Division Chair First Second Time In 09/29/18 14:23:00 09/29/18 14:23:00 09/29/18 14:23:00 Time Out 09/29/18 15:47:00 09/29/18 15:47:00 09/29/18 15:25:00 Procedure Hernia Repair Hernia Repair Hernia Repair Paraesophageal Paraesophageal Paraesophageal Laparoscopi Laparoscopi Laparoscopi Other Attendee Superficial Wound Closed By: Last Modified By: ALPHONSE PERSON RN WESSEL, JULIANA, ALPHONSE PRICE, KOLE 09/29/18 15:47:11 09/29/18 15:47:11 09/29/18 15:26:01 Entry 4 Entry 5 Entry 6 Case Attendee ALPHONSE PERSON, Angelia Mejia, Scrub JAMIE CAST, Tech Payroll Consultant Role Performed Bryologist, First Scrub, First Scrub, Second Time In 09/29/18 14:23:00 09/29/18 14:23:00 09/29/18 14:23:00 Time Out 09/29/18 15:47:00 09/29/18 15:47:00 09/29/18 15:47:00 Procedure Hernia Repair Hernia Repair Hernia Repair Paraesophageal Paraesophageal Paraesophageal Laparoscopi Laparoscopi Laparoscopi Other Attendee Superficial Wound Closed By: Last Modified By: ALPHONSE PERSON RN WESSEL, JULIANA, ALPHONSE PRICE, KOLE 09/29/18 15:47:11 09/29/18 15:47:11 09/29/18 15:47:11 Entry 7 Entry 8 Entry 9 Case Attendee [facility] Holliday, Stewart R, RN KEVON HINES V, MARKING DEVICES ASSEMBLER CARE Role Performed Biofuels Research Scientist, Ancillary Bryologist, Second MARKING DEVICES ASSEMBLER/Nurse Math And Science Division Chair Time In 09/29/18 14:23:00 09/29/18 14:55:00 09/29/18 15:25:00 Time Out 09/29/18 15:47:00 09/29/18 15:12:00 09/29/18 15:47:00 Procedure Hernia Repair Hernia Repair Hernia Repair Paraesophageal Paraesophageal Paraesophageal Laparoscopi Laparoscopi Laparoscopi Other Attendee Superficial Wound Closed By: Last Modified By: ALPHONSE PERSON, ALPHONSE PRICE, ALPHONSE PRICE RN 09/29/18 15:47:11 09/29/18 15:13:17 09/29/18 15:47:11 [facility] IntraOp Case Attendance Audit 09/29/18 15:47:11 Firer Marine: TIP Modifier: [email or web address] 1 <+> Time Out 1 <*> Procedure Hernia Repair Paraesophageal Laparoscopi 2 <+> Time Out 2 <*> Procedure Hernia Repair Paraesophageal Laparoscopi 3 <*> Procedure Hernia Repair Paraesophageal Laparoscopi 4 <+> Time Out 4 <*> Procedure Hernia Repair Paraesophageal Laparoscopi 5 <+> Time Out 5 <*> Procedure Hernia Repair Paraesophageal Laparoscopi 6 <+> Time Out 6 <*> Procedure Hernia Repair Paraesophageal Laparoscopi 7 <+> Time Out 7 <*> Procedure Hernia Repair Paraesophageal Laparoscopi 8 <*> Procedure Hernia Repair Paraesophageal Laparoscopi 9 <+> Time Out 9 <*> Procedure Hernia Repair Paraesophageal Laparoscopi 09/29/18 15:26:01 Firer Marine: TIP Modifier: [email or web address] 3 <+> Time Out 3 <*> Procedure Hernia Repair Paraesophageal Laparoscopi <+> 9 Case Attendee <+> 9 Role Performed <+> 9 Time In <+> 9 Procedure 09/29/18 15:13:17 Firer Marine: TIP Modifier: [email or web address] 1 <*> Procedure Hernia Repair Paraesophageal Laparoscopi 2 <+> Time In 2 <*> Procedure Hernia Repair Paraesophageal Laparoscopi 3 <+> Time In 3 <*> Procedure Hernia Repair Paraesophageal Laparoscopi 4 <+> Time In 4 <*> Procedure Hernia Repair Paraesophageal Laparoscopi 5 <+> Time In 5 <*> Procedure Hernia Repair Paraesophageal Laparoscopi 6 <+> Time In 6 <*> Procedure Hernia Repair Paraesophageal Laparoscopi 7 <+> Time In 7 <*> Procedure Hernia Repair Paraesophageal Laparoscopi <+> 8 Case Attendee <+> 8 Role Performed <+> 8 Time In <+> 8 Time Out <+> 8 Procedure [facility] IntraOp Case Times Entry 1 Patient In Room Time 09/29/18 14:23:00 Out Room Time 09/29/18 15:47:00 Anesthesia Start Time 09/29/18 14:23:00 Stop Time 09/29/18 15:47:00 Anesthesia Ready 09/29/18 14:23:00 Surgery / Procedure Times Start Time 09/29/18 14:43:00 Stop Time 09/29/18 15:38:00 Last Modified By: ALPHONSE PERSON RN 09/29/18 14:45:39 [facility] IntraOp Case Times Audit 09/29/18 15:47:10 Firer Marine: [email or web address] Modifier: [email or web address] <+> 1 Out Room Time <+> 1 Stop Time 09/29/18 15:41:42 Firer Marine: [email or web address] Modifier: [email or web address] <+> 1 Stop Time [facility] IntraOp Cautery Entry 1 ESU Identification Cautery Type Monopolar ESU ID Number [id number] ID Type Hospital Number Cautery Settings Cut Setting 1 Coag Setting 30 ESU Grounding Pad Ground Pad Type Adult Grounding Pad Site Left thigh Grounding Pad ALPHONSE PERSON RN Applied By Grounding Pad Site Warm, dry and intact Skin Condition Before Cautery Grounding Pad Site Unchanged Skin Condition After Cautery Last Modified By: ALPHONSE PERSON RN 09/29/18 14:46:35 [facility] IntraOp Communication Entry 1 Comment communication board in the waiting room Last Modified By: ALPHONSE PERSON RN 09/29/18 14:47:02 [facility] IntraOp Counts Verification Entry 1 Procedure Hernia Repair Paraesophageal Laparoscopi Count Info Count Type Sponge, Sharps, Instrument, Miscellaneous Counts Verification Baseline/pre-procedure Sequence Count Results Correct, surgeon notified Counts Performed By Count Performed By Angelia Mayers Scrub (Scrub) Tech Count Performed By ALPHONSE PERSON RN (RN) Last Modified By: ALPHONSE PERSON RN 09/29/18 14:47:17 [facility] IntraOp Counts Final Entry 1 Procedure Hernia Repair Paraesophageal Laparoscopi Final Count Info Count Type Sponge, Sharps, Miscellaneous Counts Verification Skin Closure/end of Sequence procedure Count Results Correct, surgeon notified Counts Performed By Count Performed By Angelia Mayers Scrub (Scrub) Tech Count Performed By ALPHONSE PERSON RN (RN) Last Modified By: ALPHONSE PERSON RN 09/29/18 15:33:34 [facility] IntraOp Counts Final Audit 09/29/18 15:33:34 Firer Marine: TIP Modifier: TIP 1 <*> Procedure Hernia Repair Paraesophageal Laparoscopi 1 <+> Counts Verification Sequence [facility] IntraOp Departure from OR Entry 1 Integumentary Assessment Integumentary WDL Assessment WDL Transfer/Handoff Transfer to PACU Phase I Handoff Method Bedside/Face to face Post-op Transport Stretcher/Gurney Via Patient Transport ALPHONSE PERSON RN, Accompanied by STEPHANIE SANCHES NA Last Modified By: ALPHONSE PERSON RN 09/29/18 14:47:32 [facility] IntraOp Dressing and Packing Entry 1 Type Dressing Location ABDOMEN Wound Dressing Item 2x2's Applied By Angelia Mayers, Payroll Consultant Other Comments 2X2 COVAERMS TO TROCAR SITES Last Modified By: ALPHONSE PERSON RN 09/29/18 14:47:41 [facility] IntraOp Fire Risk Assessment Entry 1 Fire Info Surgical Site or 0- No Incision Above the Xyphoid Open O2 Source 0- No (Mask or Cannula) Available Ignition 1- Yes (ESU, Laser, Light Source) Fire Risk 1 Assessment Score Fire Score Fire Risk Yes Assessment Complete Fire Risk ALPHONSE PERSON RN Assessment Verified By Fire Risk 09/29/18 14:23:00 Assessment Verified Date/Time Fire Risk Standard Fire Yes Safety Precautions Followed Last Modified By: ALPHONSE PERSON RN 09/29/18 14:47:50 [facility] IntraOp General Case Caser Up 1 Case Information OR OR 03 [facility] Case Level 1 Room Verified Yes Wound Class I - Clean Specialty SN General Anesthesia Type General ASA Class 2 Diagnosis Preop Diagnosis GERD Postop Same As Preop Yes Postop Diagnosis GERD Last Modified By: ALPHONSE PERSON RN 09/29/18 14:48:34 [facility] IntraOp Implant Log Entry 1 Type Implant (Synthetic) Implant Log Implant Type Other Implant TISSUE REINF FLAT SHT Identification [id number] Description Implant Quantity 1 Implant Site OPSITE Implant [id number] Identification Serial Number Implant [employer]:Med Prdt Identification Engraver Apprentice Decorative Name: Implant [id number] Identification Catalog Number Implant Has an Yes Expiration Date Implant Expiration 01/04/21 Date Tissue Implant Last Modified By: ALPHONSE PERSON RN 09/29/18 14:49:07 [facility] IntraOp Intraoperative Assessment Entry 1 Handoff Method Bedside/Face to face Valid History / Yes Physical in Chart Preoperative Yes Checklist Reviewed/Evaluated Allergies Reviewed Yes Patient is Latex No Sensitive Isolation Not applicable Precautions Noted Level of WDL Consciousness (WDL = Alert, Oriented to Person, Place, and Time) Skin Assessment Yes Verified Present Upon IVs Arrival to OR Last Modified By: ALPHONSE PERSON RN 09/29/18 14:49:12 [facility] IntraOp Intraoperative Equipment Entry 1 Equipment Intraop Monitoring Electrocardiogram Three lead placement (ECG) Electrode Placement Blood Pressure Non-Invasive BP Device Source Antiembolic Devices Antiembolic Devices Sequential compression device, knee high Antiembolic Device Bilateral Location Scopes Photo/Video Documentation Last Modified By: ALPHONSE PERSON RN 09/29/18 14:49:19 [facility] IntraOp Medication Admin Entry 1 Medication/Irrigant Anesthetic Cocktail-Laine Route of LOCAL Administration Dose Dose 60 Unit of Measure ml Administered By SAAMN THOMPSON MD Procedure Irrigation Last Modified By: ALPHONSE PERSON RN 09/29/18 14:49:24 [facility] IntraOp Patient Positioning Entry 1 Procedure Hernia Repair Paraesophageal Laparoscopi Body Position Lithotomy Left Arm Position Secured on padded arm board Right Arm Position Secured on padded arm board Left Leg Position Secured in Leg Shen Right Leg Position Secured in Leg Shen Feet Uncrossed Yes Pressure Points Yes Checked Positioning Devices Arm Board, Cox Bag, Safety Strap, Thighs, Stirrups/Leg Shen, Boot, Safety Strap, Arm(s) Positioned By STEPHANIE SANCHES NA, SAMAN THOMPSON MD, ALPHONSE PERSON RN Position Verified Positioning Yes Verified by Anesthesia Positioning Yes Verified by Surgeon Last Modified By: ALPHONSE PERSON RN 09/29/18 14:49:31 [facility] IntraOp Sign In Entry 1 Patient, Site, Yes Procedure Identified Surgical Consent Yes Confirmed Relevant Surgical Yes Documents Available Surgical Site N/A Marked by person performing procedure Anesthesia Machine Yes Check Completed Medication Checks Yes Completed Allergies Yes Airway Difficult Yes Airway/Aspiration Risk Difficult Yes Airway/Aspiration Intervention Equipment Available Blood Loss Risk Yes Blood Loss Yes Intervention Equipment Prepared and Ready Blood Identifiers Not applicable Verified Per Policy Hypothermia Risk Yes Warming Measures Yes Taken Last Modified By: ALPHONSE PERSON RN 09/29/18 14:49:37 [facility] Intra Op Sign Out Entry 1 RN Confirmation Surgical Yes Procedure(s) Identified Instrument, Sponge Yes and Sharps Counts Correct/Documented Equipment Problems N/A Documented Specimen Labeled N/A Correctly Urinary Catheter N/A Documented in IView [place] Patient Yes Recovery Concerns Reviewed with Anesthesia Provider, Surgeon and RN [place] Patient Yes Management Concerns Reviewed with Anesthesia Provider, Surgeon and RN Safety Checklist Yes Elements Complete? RN Sign Out ALPHONSE PERSON RN Signature RN Sign Out 09/29/18 15:47:00 Signature Date/Time Plan of Care Outcome - [...] of Care Outcome - Counts OUTCOME STATEMENT: Goal met Absence of signs and symptoms of injury related to extraneous objects Last Modified By: ALPHONSE PERSON RN 09/29/18 14:49:42 [facility] Intra Op Sign Out Audit 09/29/18 15:47:07 Firer Marine: TIP Modifier: [email or web address] <+> 1 RN Sign Out Signature Date/Time [facility] IntraOp Skin Prep Entry 1 Procedure Hernia Repair Paraesophageal Laparoscopi Prescribed Yes Pre-Surgical Prep Completed Prep Area ABDOMEN Intraop Prep Integumentary WDL Assessment WDL Prep Agents Chloraprep Prep by ALPHONSE PERSON RN Hair Removal Methods No hair removal performed Last Modified By: ALPHONSE PERSON RN 09/29/18 14:49:47 [facility] IntraOp Surgical Procedures Entry 1 Procedure Hernia Repair Paraesophageal Laparoscopic Additional LAPAROSCOPIC Procedure PARAESOPHAGEAL HERNIA Description REPAIR WITH TOUPEE Primary Procedure Yes Primary Surgeon SAMAN THOMPSON MD Start 09/29/18 14:43:00 Stop 09/29/18 15:38:00 Anesthesia Type General Specialty SN General Wound Class I - Clean Last Modified By: ALPHONSE PERSON RN 09/29/18 14:49:51 [facility] IntraOp Surgical Procedures Audit 09/29/18 15:41:43 Firer Marine: TIP Modifier: TIP <+> 1 Stop [facility] IntraOp Time Out Entry 1 Procedure to be Hernia Repair Performed Paraesophageal Laparoscopi Time Out Time Out Pause Time 09/29/18 14:42:00 All activity Yes suspended (unless life threatening emergency) Team Verbally Correct patient Confirms Information identity, Correct side and site are marked, Consent form is present and accurate, Agreement on the procedure to be done, Correct patient position, Relevant images/results properly labeled/appropriately displayed, Confirm antibiotics have been administered, Confirm the skin prep has dried, Confirm prosthesis/implant/devic e is present, Performed in location of procedure after prepped/draped, Performed before each procedure if multiple procedures, Reconcile problems if responses among team members differ Antibiotic Yes Prophylaxis Administered Or In Progress Within the Last 60 Minutes Beta Dolly N/A Administered Venous Yes Thromboembolism Prophylaxis Required Anticipated Critical Events Surgeon Critical or unexpected steps, Special equipment need, Special instrumentation need Anesthesia Provider Patient specific concerns Nursing Assures Sterility of instruments, Implant Availability Essential Imaging N/A Labeled and Displayed Last Modified By: ALPHONSE PERSON RN 09/29/18 14:50:51 Case Comments <None> Finalized By: ALPHONSE PERSON RN Document Signatures Signed By: ALPHONSE PERSON RN 09/29/18 15:47 documented in this encounter Plan of Treatment Not on file documented as of this encounter Visit Diagnoses Not on filedocumented in this encounter
--- OUTSIDE RECORDS SUMMARY | 2024-08-27 11:26 | XMS_ITS | Encounter Summary ---
Author Organization [facility] [employer] Address [address] [place] [address] Care Team Providers Care Engineering Document Control Clerk Name Role Phone Unavailable Primary Care Provider Unavailabl e Encounter Details Date Type Department Care Team (Late st Contact Info) Description 09/30/[address] [facility] [place] Family Medicine [address] [place] [address] ProviderLeyda MD [address] [place] [address] Social History Tobacco Use Types Packs/Day Years Used Date Smoking Tobacco: Never Assessed Comments Unknown Sex and Gender Information Value Date Recorded Sex Assigned at Not on file Legal Sex Female 6:21 PM CDT Gender Identity Not on file Sexual Orientation Not on file documented as of this encounter Miscellaneous Notes * Cerner Conversion Note - Leyda ProviderMD - 09/30/2018 1:40 PM CDT Stroke/Warfarin Instructions Entered On: 09/30/2018 13:40 EDT Performed On: 09/30/2018 13:40 EDT by Kelly Martines RN Stroke/Warfarin Instructions Stroke/TIA Discharge Ins : N/A Warfarin Discharge Ins : N/A Kelly Martines RN - 09/30/2018 13:40 EDT documented in this encounter Plan of Treatment Not on file documented as of this encounter Visit Diagnoses Not on filedocumented in this encounter
--- OUTSIDE RECORDS SUMMARY | 2024-08-27 11:26 | XMS_ITS | Encounter Summary ---
Author Organization [facility] [employer] Address [address] [place] [address] Care Team Providers Care Traveler Changer Name Role Phone Unavailable Primary Care Provider Unavailabl e Encounter Details Date Type Department Care Team (Late st Contact Info) Description 09/29/2018 Transcribed Document [facility] [place] [address] [place] [address] ProviderLeyda MD [address] [place] [id number] Social History Tobacco Use Types Packs/Day Years Used Date Smoking Tobacco: Never Assessed Comments Unknown Sex and Gender Information Value Date Recorded Sex Assigned at Not on file Legal Sex Female 6:21 PM CDT Gender Identity Not on file Sexual Orientation Not on file documented as of this encounter Miscellaneous Notes * Cerner Conversion Note - Leyda ProviderMD - 09/29/2018 2:43 PM CDT E Main OR PACU Summary Primary Physician: SAMAN THOMPSON MD Finalized Date/Time: 09/29/18 17:17:29 Pt. Name: MELINDA APONTE /Sex: 1975 Female Med Rec #: [id number] Physician: SAMAN THOMPSON MD Financial #: [id number] Pt. Type: O Room/Bed: [facility]/ Admit/Disch: 09/29/18 11:27:00 - Institution: [facility] [place] Main OR PACU Case Times Entry 1 In PACU I 09/29/18 15:48:00 Ready for PACU 09/29/18 16:45:00 Discharge Discharge from PACU 09/29/18 17:10:00 I Last Modified By: Michelle Toribio Rn Patient Care Bedside 09/29/18 17:01:52 [facility] Main OR PACU Case Times Audit 09/29/18 17:17:13 Traffic Control Signaler: SCOUT Modifier: [email or web address] <+> 1 Discharge from PACU I 09/29/18 17:01:52 Traffic Control Signaler: SCOUT Modifier: [email or web address] <+> 1 Ready for PACU Discharge [facility] Main OR PACU Acuity Entry 1 Start Time 09/29/18 16:45:00 Stop Time 09/29/18 17:10:00 Acuity Level [facility] PACU Acuity I Last Modified By: Michelle Toribio Rn Patient Care Bedside 09/29/18 17:01:58 [facility] Main OR PACU Acuity Audit 09/29/18 17:17:22 Traffic Control Signaler: SCOUT Modifier: [email or web address] <+> 1 Stop Time Finalized By: Michelle Toribio Rn Patient Care Bedside Document Signatures Signed By: Michelle Toribio Rn Patient Care Bedside 09/29/18 17:17 documented in this encounter Plan of Treatment Not on file documented as of this encounter Visit Diagnoses Not on filedocumented in this encounter
--- OUTSIDE RECORDS SUMMARY | 2024-08-27 11:26 | XMS_ITS | Clinical Summary ---
Author Organization [facility] Address [address] [place] [address] Care Team Providers Care Canvas Cutter Machine Name Role Phone Bill Lamar MD Primary Care Provider [phone] Allergies Active Allergy Reactions Criticality Noted Date Comments Lamotrigine Hives,Palpitations High 08/31/2021 Levofloxacin Nausea,Other - pleas e document in the comment field,Palpitations,Vomiting Low 11/28/2023 [place] Other - please docum ent in the comment field Low 10/28/2021 Swollen neck Medications estradiol (Vivelle-DOT) 0.025 MG/24HR estradiol 2MG DAILY Active cholecalciferol (Vitamin D3) 200 Unit tablet split tablet Take 5,000 Units by mouth 1 (one) time each day. Active Magnesium 100 MG capsule magnesium 500MG DAILY Active pantoprazole (Protonix) 20 MG EC tablet Protonix Active amitriptyline (Elavil) 10 MG tablet Take 7.5 tablets (75 mg) by mouth every night. 2 Active famotidine (Pepcid) 40 MG tablet famotidine 40 mg Active traMADol (Ultram) 50 MG tablet every 12 (twelve) hours. Active pyridostigmine (Mestinon) 60 MG tablet Take 0.5 tablets (30 mg) by mouth 3 (three) times a day. 3 Active Melatonin 12 MG tablet Take 24 mg by mouth. Active nortriptyline (Pamelor) 50 MG capsule Take 1 capsule (50 mg) by mouth 1 (one) time each day. 3 Active hydroxychloroqu ine (Plaquenil) 200 MG tablet Active dexlansoprazole (Dexilant) [address] capsule Take 1 capsule (60 mg) by mouth 1 (one) time each day. 4 Active Collagen-Hickory- Hyaluronic Acid (Move Free [employer] Software) 40-5-3.3 MG tablet Active busPIRone (Buspar) 10 MG tablet Active bethanechol (Urecholine) 25 MG tablet Take 1 tablet (25 mg) by mouth 3 times a day. 4 Active colchicine (Colcrys) 0.6 MG tablet Active ondansetron (Zofran) 4 MG tablet Active promethazine (Phenergan) 25 MG tablet Take 1 tablet (25 mg) by mouth every 8 (eight) hours if needed. 4 Active Motegrity 2 MG tablet Take 1 tablet (2 mg) by mouth 1 (one) time each day. 4 Active RABEprazole (Aciphex) 20 MG EC tablet Take 1 tablet (20 mg) by mouth. 4 09/21/19 25 Active Active Problems Problem Noted Date Diagnosed Date Dysphagia, pharyngoesophageal phase 12/22/2023 Complex tear of medial menis cus of right knee as current injury 01/19/2022 Family History Medical History Relation Name Comments Breast cancer Maternal Grandmother Breast cancer Mother's Sister Relation Name Status Comments Maternal Grandmother Mother's Sister Other Social History Tobacco Use Types Packs/Day Years Used Date Smoking Tobacco: Never Smokeless Tobacco: Never Tobacco Cessation:Counseling Given: Not Answered Alcohol Use Standard Drinks/Week Comments Yes 2 (1 standard drink = 0.6 oz pur e alcohol) PHQ-2 Answer Date Recorded Patient Health Questionnaire-2 Score 0 06/02/2023 PHQ-2A Answer Date Recorded Patient Health Questionnaire-2 Score 0 06/15/2022 Comments No Sex and Gender Information Value Date Recorded Sex Assigned at Not on file Legal Sex Female 6:18 PM EDT Gender Identity Not on file Sexual Orientation Not on file Last Filed Vital Signs Vital Sign Reading Time Taken Comments Blood Pressure 131/82 11/28/2023 2:20 PM EDT Pulse 82 11/28/2023 2:20 PM EDT Temperature - - Respiratory Rate - - Oxygen Saturation 98% 06/02/2023 2:12 PM EDT Inhaled Oxygen Concentration - - Weight 83 kg (183 lb) 11/28/2023 2:20 PM EDT Height 154.9 cm (5' 1 ) 11/28/2023 2:20 PM EDT Body Mass Index 34.58 11/28/2023 2:20 PM EDT Plan of Treatment Health Maintenance Due Date Last Done Comments [facility]-HIV Screening 1975 [facility]-Hepatitis C Screening 1975 [facility]-/Child/Adol SDOH Screenings 1975 [facility]- SDOH Screenings 1991 [facility]-Adult SDOH Screenings 1991 [facility]-DTaP,Tdap,and Td Vaccines (1 - Tdap) 01/31/1992 [facility]-Hepatitis B Vaccines (1 of 3 - 19+ 3-dose series) 01/31/1992 CT Colonography 2018 Colonoscopy 2018 FIT-DNA 2018 FIT 2018 FOBT 2018 Sigmoidoscopy 2018 [facility]-Colorectal Cancer Screening 2018 [facility]-Pneumococcal Vaccine: 50+ Years (1 of 1 - PCV) 2023 [facility]-Zoster Vaccines (1 of 2) 2023 [id number] Vaccine ( - 2023- season) 2023 01/23/2023, 12/12/2021, 07/17/2021, Additional history exists [facility]-Depression Screening 06/01/2024 06/02/2023 [facility]-Influenza Vaccine (Season Ended) 2024 01/23/2023, 01/19/2022 [facility]-Breast Cancer Screening 06/15/202506/05, 06/16/2023, 04/13/2022, Additional history exists [facility]-Obesity Intervention Completed 024, 06/02/2023, 06/02/2023, Additional history exists HPV Vaccines Aged Out No longer eligi ble based on patient's age to complete this topic [facility]-HIB Vaccines Aged Out No longer e ligible based on patient's age to complete this topic [facility]-Hepatitis A Vaccines Aged Out No longer eligible based on patient's age to complete this topic [facility]-IPV Vaccines Aged Out No longer e ligible based on patient's age to complete this topic [facility]-Rotavirus Vaccines Aged Out No lo nger eligible based on patient's age to complete this topic Goals Goal Patient Goal Type Associated Problems Recent Progress Patient-Stated? Author Patient will verbalize understanding of orthotic wear , care and precautions. Occupational Therapy No Pat Bueno Procedures Procedure Name Priority Date/Time Associated Diagnosis Comments MAMMOGRAPHY BREAST SCREENING TOMOSYNTHESIS BILATERAL Routine 04/13/2022 4:52 PM EST Visit for screening mammogram from Last 3 Months or Most Recently Relevant to Health Maintenance Results * Mammography Breast Screening Tomosynthesis Bilateral (04/13/2022 4:52 PM EST) Anatomical Region Laterality Modality Breast Bilateral Mammography Impressions 05/05/2022 11:30 AM EST No mammographic evidence of malignancy. BI-RADS CATEGORY: Overall: 2 - Benign RECOMMENDATION: - Routine Screening Mammogram in 1 Year. Patient Lifetime Risk Score of Breast Malignancy: 7.2 % This risk assessment is calculated using the Brinda Risk Assessment model which may underestimate the lifetime risk of breast malignancy. COMMUNICATION: Computer-aided detection (CAD) and tomosynthesis were utilized by the radiologist in the interpretation of this examination. The results and recommendations will be sent to the patient in a printed lay language version of the imaging report. Narrative 05/05/2022 11:30 AM EST EXAM: Mammography Breast Screening with Tomosynthesis REASON FOR EXAM: Screening Mammogram HISTORY: Patient is 47 y.o. Family medical history includes breast cancer in 2 relatives (maternal grandmother, mother's sister). Hormone history includes estrogen replacement therapy (7 years to present). Surgical and procedural history include left breast biopsy (7 years ago-benign results); hysterectomy; and breast enhancement/implants. COMPARISON STUDIES: Compared to: 01/22/2019 Mammography Outside Images Upload at [facility] 08/28/2019 Mammography Outside Images Upload at [facility] [facility] 01/24/2020 Mammography Outside Images Upload at [employer] [facility] 03/10/2021 Mammography Outside Images Upload at [facility] BREAST COMPOSITION: The breasts have scattered areas of fibroglandular density. FINDINGS: There are silicone gel, intact retro-pectoral implant(s) present in bilateral breasts. There is no evidence of suspicious masses, calcifications, or other abnormal findings. us Bill Lamar MD IMG BI PROCEDURES Final Resul t from Last 3 Months or Most Recently Relevant to Health Maintenance Insurance ANTH Care Teams Canvas Cutter Machine Relationship Specialty Start Date End Date Bill Lamar MD [address] [place] [address] PCP - General 04/13/22
--- OUTSIDE RECORDS SUMMARY | 2024-08-27 11:26 | XMS_ITS | Encounter Summary ---
Author Organization [employer] [facility] [employer] Address [address] [place] [address] Care Team Providers Care Battery Tester Field Name Role Phone Unavailable Primary Care Provider Unavailabl e Encounter Details Date Type Department Care Team (Late st Contact Info) Description 09/29/2018 Transcribed Document [facility] [place] Family Medicine [facility] [place] [address] ProviderLeyda MD [address] [place] [address] [id number] Social History Tobacco Use Types Packs/Day Years Used Date Smoking Tobacco: Never Assessed Comments Unknown Sex and Gender Information Value Date Recorded Sex Assigned at Not on file Legal Sex Female 6:21 PM CDT Gender Identity Not on file Sexual Orientation Not on file documented as of this encounter Miscellaneous Notes * Cerner Conversion Note - Leyda ProviderMD - 09/29/2018 11:26 AM CDT Admission History, Adult Entered On: 09/29/2018 18:13 EDT Performed On: 09/29/2018 11:26 EDT by Shahnaz Trujillo Rn Advance Directive Patient has Advance Directive *Q : No, patient refuses Advance Directive information Shahnaz Trujillo Rn - 09/29/2018 18:12 EDT Anesthesia/Transfusion History Family History of Anesthesia Reaction : Prior transfusion without reaction Transfusion History : Prior anesthesia without reaction Family History of Anesthesia Reaction : None Shahnaz Trujillo Rn - 09/29/2018 18:12 EDT Education Topics, Admission Orientation DCP GENERIC CODE Advance Directives : Verbalizes understanding Allergy Band Applied : Verbalizes understanding Assessment/Vital Signs : Verbalizes understanding Bed Control : Verbalizes understanding Call Light : Verbalizes understanding Confidentiality : Verbalizes understanding Diet/Room Service : Verbalizes understanding Fall Prevention : Verbalizes understanding Hand Hygiene : Verbalizes understanding Healthcare Provider Visit : Verbalizes understanding ID Band Applied : Verbalizes understanding Isolation Precautions : Verbalizes understanding Orientation to Room/Bathroom : Verbalizes understanding Patient Bill of Rights : Verbalizes understanding Patient Rights/Responsibilities : Verbalizes understanding Patient Safety : Verbalizes understanding Personal Privacy Code : Verbalizes understanding Rapid Response Initiated by Patient/Family : Verbalizes understanding Rounding : Verbalizes understanding Siderails use/risks : Verbalizes understanding Skin Precautions : Verbalizes understanding Smoking Policy : Verbalizes understanding Telemetry Monitoring : Verbalizes understanding Television/Phone : Verbalizes understanding Visiting Policy : Verbalizes understanding Shahnaz Trujillo Rn - 09/29/2018 18:12 EDT Functional Assessment Living Situation : Home Patient Lives With : Spouse Persons Assisting Patient at Home : Spouse Current Daily Living Assistance : None Sensory Deficits : None Mobility Assistance Prior to Admission : Independent GORMAN Hx Falls Immediate/Within 3 Months : No Current Home Treatments : None Home Equipment : None Professional Skilled Services : None Special Services and Community Resources : None Shahnaz Trujillo Rn - 09/29/2018 18:12 EDT General Info Arrived From : Home Mode of Arrival on Unit : Ambulatory Legal Guardian : Spouse Want Family/Rep/Phys Notified of Admit : No Emergency Contact #1 : Devotne Aponte Emergency Contact #1 Emergency Contact #1 Relationship : Emergency Contact #2 : none Emergency Contact #2 Phone Number : none Emergency Contact #2 Relationship : none Information Obtained From : Patient Primary Language : Anguillan Preferred Communication Mode : Verbal Communication Barrier : None Currently Lactating : No Status : Hysterectomy Shahnaz Trujillo Rn - 09/29/2018 18:12 EDT Fall Risk Scales ABCs Fall Injury Risk Identification : None GORMAN Hx Falls Immediate/Within 3 Months : No [place]orman Secondary Diagnosis : Yes GORMAN Use of Ambulatory Aid : None GORMAN IV Therapy or IV Access : Yes [place]orman Gait/Transferring : Normal, bedrest, immobile [place]orman Mental Status : Oriented to own ability [place] Fall Risk Score : 35 GORMAN Fall Scale Risk Level : 25-45 Medium Risk [place] Fall Interventions : Adequate lighting, Assistive devices within reach, Bed in low position, Call device within reach, Frequent orientation to call device, Frequent orientation to surroundings, Hourly comfort/safety rounds, Non-slip footwear, Personal items within reach, Reinforced to call for assistance before getting out of bed, Room free of clutter/spills, Upper side-rails up, Wheels locked, Wires/Cords secured Barriers to Learning : None evident Learning Style Preferences Family : None Learning Style Preferences Patient : None Shahnaz Trujillo Rn - 09/29/2018 18:12 EDT Health Histories Smoking Status : Never (less than 100 in lifetime; none in last 30 days) Smokeless Tobacco Status : Never Implant/Device Type, Biologist Aide and Model : wong Shahnaz Trujillo Rn - 09/29/2018 18:12 EDT Social History (As Of: 09/29/2018 18:13:53 EDT) Tobacco: Never (less than 100 in lifetime) Smoking Status. Never Smokeless Tobacco Status. (Last Updated: 05/25/2018 13:10:12 EDT by KAMALA MOISE RN) Alcohol: Alcohol Use History Yes. Alcohol Use Frequency Socially. (Last Updated: 05/25/2018 13:10:27 EDT by KAMALA MOISE RN) Substance Abuse: Drug Use Hx: No. (Last Updated: 05/25/2018 13:10:34 EDT by KAMALA MOISE RN) Nutrition/Health: Caffeine intake amount: coffee soda daily. (Last Updated: 05/25/2018 13:10:53 EDT by KAMALA MOISE RN) Height and Weight, Clinical Dosing Height Source : Stated Height Entry Format : [place] Height, Feet : 5 ft(Converted to: 152 cm, 60 Inch) Height, Inches : 1 Inch(Converted to: 0 ft 1 Inch, 2.54 cm) Clinical Height : 154.94 cm Weight Source : Standing scale Weight Entry Format : [place] Clinical Dosing Weight : 79.55 kg Weight, Pounds : 175 lb Body Surface Area (BSA) : 1.79 m2 Body Mass Index : 33.1 kg/m2 (HI) [place] Body Weight : 47 kg Shahnaz Trujillo Rn - 09/29/2018 18:12 EDT Infectious Disease History Infectious Disease History : Chicken pox/Shingles, Influenza, Other: hepatits C- tested last week and tested neg Isolation Needed : Standard Fever/Chills Last 48 Hours : No Travel To Regions with Travel Advisories : No Travel Outside [place] Within Last 30 Days : No Contact With Traveler to Advisory Region : No Tuberculosis Symptoms : None Shahnaz Trujillo Rn - 09/29/2018 18:12 EDT Tetanus Immunization Status Previous Tetanus Immunizations : No qualifying data available. Tetanus Immunization : Unknown Shahnaz Trujillo Rn - 09/29/2018 18:12 EDT Influenza Vaccine Asmt, Adult Previous Vaccines from Immunization Schedule : No qualifying data available. Influenza Immunization, Current Season : Outside of influenza season Shahnaz Trujillo Rn - 09/29/2018 18:12 EDT Pneumococcal Vaccine Previous Vaccines from Immunization Schedule : No qualifying data available. Pneumonia Immunization Received : No Pneumococcal Risk Assessment < Age 65 : None Shahnaz Trujillo Rn - 09/29/2018 18:12 EDT Order Details Order Detail : 0 IV Order Detail : 1 Oxygen Order Detail : 1 Nurse Collect Order Detail : 0 Lift/Transfer : Minimal Central Line Order Detail : No Room Service : Not Appropriate Arterial Line : No Shahnaz Trujillo Rn - 09/29/2018 18:12 EDT Nutrition History Eating Poorly Due to Decreased Appetite : No Unplanned Weight Loss in Past 3-6 Months : No Malnutrition Screening Tool Total(mal) : 0 Malnutrition Screening Tool Risk Level : Patient not at risk Shahnaz Trujillo Rn - 09/29/2018 18:12 EDT Psychosocial History Do You Have a History of the Following? : Anxiety, Depression Currently in Unsafe Situation : No Tried to Harm Yourself in the Past? : No Thoughts of Harming/Killing Yourself : No Shahnaz Trujillo Rn - 09/29/2018 18:12 EDT Sleep Apnea Risk Assmt Hx of Obstructive Sleep Apnea Diagnosis : No Snore Loudly : No Tired, Fatigued, or Sleepy During Day : No Observed Stopping Breathing During Sleep : No Have/Are Being Treated for Hypertension : No BMI Greater Than 35 kg/m2 : No Age over 50 Years Old : No Neck Circumference Greater Than 40 cm : No Gender Male : No STOP-BANG Sleep Apnea Risk Level Score : 0 Shahnaz Trujillo Rn - 09/29/2018 18:12 EDT Spiritual/Cultural Needs Any Spiritual/Cultural Needs or Requests : No Shahnaz Trujillo Rn - 09/29/2018 18:12 EDT Valuables and Belongings Valuables and Belongings : Clothing, Personal items Clothing : Common streetwear Clothing Disposition : With family Personal Items : Cell phone, Credit cards Personal Items Disposition : With family Shahnaz Trujillo Rn - 09/29/2018 18:12 EDT Electronically signed by Ernesto Betancourt Conversion Professor Of Chemical Engineering Cerner at 06/22/2022 9:15 AM CDT documented in this encounter Plan of Treatment Not on file documented as of this encounter Visit Diagnoses Not on filedocumented in this encounter
--- OUTSIDE RECORDS SUMMARY | 2024-08-27 11:26 | XMS_ITS | Encounter Summary ---
Author Organization [employer] [facility] Address [address] [place] [address] Care Team Providers Care Junior Project Coordinator Name Role Phone Unavailable Primary Care Provider Unavailabl e Encounter Details Date Type Department Care Team (Late st Contact Info) Description 09/30/2018 Transcribed Document [facility] Family [facility] [place] [address] ProviderLeyda MD [address] [place] [address] [id number] Social History Tobacco Use Types Packs/Day Years Used Date Smoking Tobacco: Never Assessed Comments Unknown Sex and Gender Information Value Date Recorded Sex Assigned at Not on file Legal Sex Female 6:21 PM CDT Gender Identity Not on file Sexual Orientation Not on file documented as of this encounter Miscellaneous Notes * Cerner Conversion Note - Leyda ProviderMD - 09/30/2018 2:12 PM CDT Nursing Discharge Summary Entered On: 09/30/2018 14:13 EDT Performed On: 09/30/2018 14:12 EDT by Kelly Martinse RN Discharge Documentation Discharge Date/Time : 09/30/2018 14:10 EDT Patient Disposition, General : Discharge Discharge To : Home with ambulatory/outpatient follow-up Accompanied By, Discharge : Spouse IV Discontinued : Yes Prescriptions Given to Patient : Yes Discharge Instructions Reviewed With, Opportunity For Questions Given : Patient Patient Education Completed : Yes Teaching Method : Explanation Teaching Evaluation : Verbalizes understanding Kelly Martines RN - 09/30/2018 14:12 EDT Electronically signed by Ernesto Betancourt Conversion Marine Steam Fitter Helper Cerner at 06/22/2022 9:19 AM CDT documented in this encounter Plan of Treatment Not on file documented as of this encounter Visit Diagnoses Not on filedocumented in this encounter
--- OUTSIDE RECORDS SUMMARY | 2024-08-27 11:26 | XMS_ITS | Encounter Summary ---
Author Organization [employer] [facility] [employer] Address [address] [place] [address] Care Team Providers Care Cafeteria Monitor Name Role Phone Unavailable Primary Care Provider Unavailabl e Encounter Details Date Type Department Care Team (Late st Contact Info) Description 03/26/2021 Transcribed Document [facility] [place] Family Medicine [facility] [place] [address] ProviderLeyda MD [address] [place] [address] [phone] Social History Tobacco Use Types Packs/Day Years Used Date Smoking Tobacco: Never Assessed Comments Unknown Sex and Gender Information Value Date Recorded Sex Assigned at Not on file Legal Sex Female 6:21 PM CDT Gender Identity Not on file Sexual Orientation Not on file documented as of this encounter Miscellaneous Notes * Cerner Conversion Note - Leyda Clark MD - 03/26/2021 11:52 AM DRAFTER ELECTRICAL DATE OF PROCEDURE: 03/26/2021 SURGEON: Marvin Baum MD PREOPERATIVE DIAGNOSIS: Symptomatic cholelithiasis. POSTOPERATIVE DIAGNOSIS: Symptomatic cholelithiasis. PROCEDURES: 1. Laparoscopic cholecystectomy. 2. ICG monitoring. SHOE CLERK: Smith Mora. ANESTHESIA: General endotracheal. FINDINGS: The patient had a large stone within the gallbladder. DESCRIPTION OF PROCEDURE: The patient was brought to the operating room, where general endotracheal anesthesia was induced. She was sterilely prepped and draped. Preoperative antibiotics were in place. Sequential compression boots were used for DVT prophylaxis. Time-out performed per protocol. 0.5% Marcaine with epinephrine was placed in each trocar site for postoperative analgesia. A skin incision was made at the umbilicus with a scalpel, and then a Veress needle placed and CO2 pneumoperitoneum obtained. The Veress needle was removed, and a 5 mm Optiview was then used to enter the peritoneal cavity under direct vision with the laparoscope. Three additional ports were placed in a standard fashion under direct vision with the laparoscope. The patient was placed in reverse Trendelenburg position and rotated towards the left. The gallbladder was partially decompressed with a syringe and needle to allow it to be grasped and elevated towards the right upper quadrant. We then carefully took down adhesions from the gallbladder, which involved the duodenum. ICG monitoring was utilized throughout the dissection. We carefully dissected out the cystic duct. It was somewhat difficult to grasp the gallbladder because of the very large stone impacted at the base. We were able to carefully dissect out the cystic duct. The anatomy was well visualized with ICG monitoring. The cystic duct was then doubly clipped proximally, distally, and divided sharply with scissors. Likewise, the cystic artery was clipped and divided. The gallbladder was removed from the gallbladder bed using hook cautery. It was placed with a specimen retrieval bag, then delivered through the subxiphoid fascial defect. The incision had to be lifted to allow passage of the large stone. The specimen was sent to Pathology for formal evaluation. We then proceeded to irrigate the right upper quadrant with sterile saline. Meticulous hemostasis was assured. The trocars removed and CO2 released from the peritoneal cavity. The subxiphoid fascial defect was closed with [id number] 0 Vicryl stitch. Skin incisions were closed with 4-0 Monocryl in a subcuticular fashion followed by Dermabond. The patient tolerated the procedure well. There were no immediate complications. Sponge and needle counts were correct. She was taken to Recovery in stable condition. /[id number] MD BILLY Nichols/PAMELLA / BILLY / MELANIEL /[id number] documented in this encounter Plan of Treatment Not on file documented as of this encounter Visit Diagnoses Not on filedocumented in this encounter
--- OUTSIDE RECORDS SUMMARY | 2024-08-27 11:26 | XMS_ITS | Encounter Summary ---
Author Organization [facility] Address [address] [place] [address] Care Team Providers Care Engineering Production Worker Name Role Phone Unavailable Primary Care Provider Unavailabl e Encounter Details Date Type Department Care Team (Late st Contact Info) Description 09/04/2019 Transcribed Document [facility] [place] Family Medicine [facility] [address] ProviderLeyda MD [address] [place] [address] [phone] Social History Tobacco Use Types Packs/Day Years Used Date Smoking Tobacco: Never Assessed Comments Unknown Sex and Gender Information Value Date Recorded Sex Assigned at Not on file Legal Sex Female 6:21 PM CDT Gender Identity Not on file Sexual Orientation Not on file documented as of this encounter Miscellaneous Notes * Cerner Conversion Note - Leyda ProviderMD - 09/04/2019 9:00 AM CDT [facility] Alyssa PreOp Summary Primary Physician: ZINA STEELE MD-GAE Finalized Date/Time: 09/04/19 09:27:22 Pt. Name: MELINDA APONTE /Sex: 1975 Female Med Rec #: [id number] Physician: ZINA STEELE MD-GAE Financial #: [id number] Pt. Type: O Room/Bed: END/ Admit/Disch: 09/04/19 08:25:00 - Institution: [facility] Alyssa PreOp Case Times Entry 1 In Preop 09/04/19 08:54:00 Ready for Holding n/a Room Patient Ready for 09/04/19 09:26:00 Surgery Patient Out of Preop 09/04/19 09:26:00 Patient Out of n/a Holding Room Last Modified By: Seema Sheriff RN 09/04/19 09:27:18 Finalized By: Seema Sheriff RN Document Signatures Signed By: Seema Sheriff RN 09/04/19 09:27 Electronically signed by Serafin [facility] Conversion District Supervisor Cerner at 06/22/2022 9:18 AM CDT documented in this encounter Plan of Treatment Not on file documented as of this encounter Visit Diagnoses Not on filedocumented in this encounter
--- OUTSIDE RECORDS SUMMARY | 2024-08-27 11:26 | XMS_ITS | Encounter Summary ---
Author Organization [employer] Address [address] [place] [address] Care Team Providers Care Bonding Machine Operator Name Role Phone Unavailable Primary Care Provider Unavailabl e Encounter Details Date Type Department Care Team (Late st Contact Info) Description 03/26/2021 Transcribed Document [facility] [place] Family Medicine [facility] [place] [address] ProviderLeyda MD [address] [place] [address] [id number] Social History Tobacco Use Types Packs/Day Years Used Date Smoking Tobacco: Never Assessed Comments Unknown Sex and Gender Information Value Date Recorded Sex Assigned at Not on file Legal Sex Female 6:21 PM CDT Gender Identity Not on file Sexual Orientation Not on file documented as of this encounter Miscellaneous Notes * Cerner Conversion Note - Leyda Clark MD - 03/26/2021 12:15 PM SUPERVISOR DA[employer]Y [employer]ITATION Patient Education Materials Follows: Minimally Invasive Cholecystectomy, Care After This sheet gives you information about how to care for yourself after your procedure. Your doctor may also give you more specific instructions. If you have problems or questions, contact your doctor. What can I expect after the procedure? After the procedure, it is common: ??? To have pain at the areas of surgery. You will be given medicines for pain. ??? To vomit or feel like you may vomit. ??? To feel fullness in the belly (bloating) or to have pain in the shoulder. This comes from the gas that was used during the surgery. Follow these instructions at home: Medicines ??? Take jkgl-iqg-erpwnsd and prescription medicines only as told by your doctor. ??? If you were prescribed an antibiotic medicine, take it as told by your doctor. Do not stop using the antibiotic even if you start to feel better. ??? Ask your doctor if the medicine prescribed to you: ? Requires you to avoid driving or using machinery. ? Can cause trouble pooping (constipation). You may need to take these actions to prevent or treat trouble pooping: ? Drink enough fluid to keep your pee (urine) pale yellow. ? Take yabn-onp-erktjln or prescription medicines. ? Eat foods that are high in fiber. These include beans, whole grains, and fresh fruits and vegetables. ? Limit foods that are high in fat and sugar. These include fried or sweet foods. Incision care ??? Follow instructions from your doctor about how to take care of your cuts from surgery (incisions). Make sure you: ? Wash your hands with soap and water for at least 20 seconds before and after you change your bandage (dressing). If you cannot use soap and water, use hand senior facilities manager. ? Change your bandage as told by your doctor. ? Leave stitches (sutures), skin glue, or skin tape (adhesive) strips in place. They may need to stay in place for 2 weeks or longer. If tape strips get loose and curl up, you may trim the loose edges. Do not remove tape strips completely unless your doctor says it is okay. ??? Do not take baths, swim, or use a hot tub until your doctor approves. Ask your doctor if you may take showers. You may only be allowed to take sponge baths. ??? Check your surgery area every day for signs of infection. Check for: ? More redness, swelling, or pain. ? Fluid or blood. ? Warmth. ? Pus or a bad smell. Activity ??? Rest as told by your doctor. ??? Do not sit for a long time without moving. Get up to take short walks every 1?2 hours. This is important. Ask for help if you feel weak or unsteady. ??? Do not lift anything that is heavier than 10 lb (4.5 kg), or the limit that you are told, until your doctor says that it is safe. ??? Do not play contact sports until your doctor says it is okay. ??? Do not return to work or school until your doctor says it is okay. ??? Return to your normal activities as told by your doctor. Ask your doctor what activities are safe for you. General instructions ??? If you were given a medicine to help you relax (sedative) during your procedure, it can affect you for many hours. Do not drive or use machinery until your doctor says that it is safe. ??? Keep all follow-up visits as told by your doctor. This is important. Contact a doctor if: ??? You get a rash. ??? You have more redness, swelling, or pain around your cuts from surgery. ??? You have fluid or blood coming from your cuts from surgery. ??? Your cuts from surgery feel warm to the touch. ??? You have pus or a bad smell coming from your cuts from surgery. ??? You have a fever. ??? One or more of your cuts from surgery breaks open. Get help right away if: ??? You have trouble breathing. ??? You have chest pain. ??? You have pain that is getting worse in your shoulders. ??? You faint or feel dizzy when you stand. ??? You have very bad pain in your belly (abdomen). ??? You feel like you may vomit or you vomit, and this lasts for more than one day. ??? You have leg pain. Summary ??? After your surgery, it is common to have pain at the areas of surgery. You may also have vomiting or fullness in the belly. ??? Follow your doctor's instructions about medicine, activity restrictions, and caring for your surgery areas. Do not do activities that require a lot of effort. ??? Contact a doctor if you have a fever or other signs of infection, such as more redness, swelling, or pain around the cuts from surgery. ??? Get help right away if you have chest pain, increasing pain in the shoulders, or trouble breathing. This information is not intended to replace advice given to you by your health care provider. Make sure you discuss any questions you have with your health care provider. Document Revised: 02/05/2020 Document Reviewed: 02/05/2020 [employer] Patient Education ? 2020 [employer] Procedures Outpatient Surgery, Adult, Care After This sheet gives you information about how to care for yourself after your procedure. Your health care provider may also give you more specific instructions. If you have problems or questions, contact your health care provider. What can I expect after the procedure? After the procedure, it is common to have: ??? Tenderness and numbness at the surgical site. ??? Swelling, bruising, and numbness around the surgical site. ??? Nausea. Follow these instructions at home: For the time period you were told by your health care provider: ??? Rest. ??? Do not participate in activities where you could fall or become injured. ??? Do not drive or use machinery. ??? Do not drink alcohol. ??? Do not take sleeping pills or medicines that cause drowsiness. ??? Do not make important decisions or sign legal documents. ??? Do not take care of children on your own. Medicines ??? Take scgt-qok-xfwyzmn and prescription medicines only as told by your health care provider. ??? If you were prescribed an antibiotic medicine, take it as told by your health care provider. Do not stop taking the antibiotic even if you start to feel better. ??? Ask your health care provider if the medicine prescribed to you: ? Requires you to avoid driving or using machinery. ? Can cause constipation. You may need to take these actions to prevent or treat constipation: ? Drink enough fluid to keep your urine pale yellow. ? Take wfad-fcb-scfyefa or prescription medicines. ? Eat foods that are high in fiber, such as beans, whole grains, and fresh fruits and vegetables. ? Limit foods that are high in fat and processed sugars, such as fried or sweet foods. Eating and drinking ??? Follow the diet recommended by your health care provider. ??? When you are hungry, begin eating light and bland foods, such as toast. Gradually return to your regular diet. ??? If you vomit: ? Drink clear fluids slowly and in small amounts as you are able. Clear fluids include water, ice chips, low-calorie sports drinks, and fruit juice that has water added (diluted fruit juice). ? Eat bland, azlr-ts-wdnkhv foods in small amounts as you are able. These foods include bananas, applesauce, rice, lean meats, toast, and crackers. Incision care ??? Follow instructions from your health care provider about how to take care of an incision, if you have one. Make sure you: ? Wash your hands with soap and water for at least 20 seconds before and after you change your bandage (dressing). If soap and water are not available, use hand senior facilities manager. ? Change your dressing as told by your health care provider. ? Leave stitches (sutures), skin glue, or adhesive strips in place. These skin closures may need to stay in place for 2 weeks or longer. If adhesive strip edges start to loosen and curl up, you may trim the loose edges. Do not remove adhesive strips completely unless your health care provider tells you to do that. ??? Check your incision area every day for signs of infection. Check for: ? Redness, swelling, or pain. ? Fluid or blood. ? Warmth. ? Pus or a bad smell. Activity ??? Do not play contact sports until your health care provider says it is okay. ??? Follow instructions from your health care provider about lifting heavy objects. You may be told not to lift things that weigh more than a certain amount. ??? Return to your normal activities as told by your health care provider. Ask your health care provider what activities are safe for you. General instructions ??? If you have sleep apnea, surgery and certain medicines can increase your risk for breathing problems. Follow instructions from your health care provider about wearing your sleep device: ? Anytime you are sleeping, including during daytime naps. ? While taking prescription pain medicines, sleep medicines, or medicines that make you drowsy. ??? Have a responsible adult stay with you for the time you are told. It is important to have someone help care for you until you are awake and alert. ??? Do not use any products that contain nicotine or tobacco, such as cigarettes, e-cigarettes, and chewing tobacco. These can delay healing after surgery. If you need help quitting, ask your health care provider. ??? Ask your health care provider when you can take baths or showers, swim, or use a hot tub. You may only be allowed to take sponge baths. ??? Keep all follow-up visits as told by your health care provider. This is important. Contact a health care provider if: ??? You have any of these signs of infection: ? Redness, swelling, or pain around your incision or IV site. ? Fluid or blood coming from your incision. ? Warmth coming from your incision. ? Pus or a bad smell coming from your incision. ? A fever. ??? You feel light-headed or you faint. ??? You develop a rash. ??? You keep feeling nauseous or keep vomiting. ??? You have severe pain, even after taking the medicines your health care provider has prescribed or recommended. ??? You have constipation. Get help right away if: ??? You cannot urinate. ??? You have trouble breathing. ??? You have chest pain. ??? Your legs become painful or swollen. These symptoms may represent a serious problem that is an emergency. Do not wait to see if the symptoms will go away. Get medical help right away. Call your local emergency services (911 in the [place] Do not drive yourself to the hospital. Summary ??? Nausea is common after a procedure. ??? Have a responsible adult stay with you for the time you are told. It is important to have someone help care for you until you are awake and alert. ??? Follow the diet recommended by your health care provider. If you vomit, drink clear fluids slowly and eat bland, khny-ae-vbgftv foods in small amounts. ??? Ask your health care provider what activities are safe for you. This information is not intended to replace advice given to you by your health care provider. Make sure you discuss any questions you have with your health care provider. Document Revised: 06/20/2020 Document Reviewed: 12/13/2019 [employer] Patient Education ? 2020 [employer]. Electronically signed by Ernesto Betancourt Conversion Professor/Nurse Anesthetist Nargisner at 06/22/2022 9:13 AM CDT documented in this encounter Plan of Treatment Not on file documented as of this encounter Visit Diagnoses Not on filedocumented in this encounter
--- OUTSIDE RECORDS SUMMARY | 2024-08-27 11:26 | XMS_ITS | Encounter Summary ---
Author Organization [facility] [employer] Address [address] [place] [address] Care Team Providers Care Media Relations Intern Name Role Phone Unavailable Primary Care Provider Unavailabl e Encounter Details Date Type Department Care Team (Late st Contact Info) Description 09/30/2018 Transcribed Document [facility] [place] Family Medicine [address] [place] [address] ProviderLeyda MD [address] [place] [address] Social History Tobacco Use Types Packs/Day Years Used Date Smoking Tobacco: Never Assessed Comments Unknown Sex and Gender Information Value Date Recorded Sex Assigned at Not on file Legal Sex Female 6:21 PM CDT Gender Identity Not on file Sexual Orientation Not on file documented as of this encounter Miscellaneous Notes * Cerner Conversion Note - Leyda ProviderMD - 09/30/2018 5:00 AM CDT Chart Check - Review Order Profile Entered On: 09/30/2018 5:11 EDT Performed On: 09/30/2018 5:00 EDT by Lawson Garces RN Chart Check Powerplans Initiated/Discontinued as Appropriate : Yes All Active Orders Reviewed : Yes Lawson Garces RN - 09/30/2018 5:11 EDT Electronically signed by Ernesto Betancourt Conversion Circulation Representative Hali at 06/22/2022 9:27 AM CDT documented in this encounter Plan of Treatment Not on file documented as of this encounter Visit Diagnoses Not on filedocumented in this encounter
--- OUTSIDE RECORDS SUMMARY | 2024-08-27 11:26 | XMS_ITS | Encounter Summary ---
Author Organization [facility] [employer] Address [address] [place] [address] Care Team Providers Care Substation Operator Helper Generation Name Role Phone Unavailable Primary Care Provider Unavailabl e Encounter Details Date Type Department Care Team (Late st Contact Info) Description 09/29/2018 Transcribed Document [facility] [place] Family Medicine [address] [place] [address] ProviderLeyda MD [address] [place], [place] [id number] Social History Tobacco Use Types Packs/Day Years Used Date Smoking Tobacco: Never Assessed Comments Unknown Sex and Gender Information Value Date Recorded Sex Assigned at Not on file Legal Sex Female 6:21 PM CDT Gender Identity Not on file Sexual Orientation Not on file documented as of this encounter Miscellaneous Notes * Cerner Conversion Note - Leyda ProviderMD - 09/29/2018 5:00 PM CDT Chart Check - Review Order Profile Entered On: 09/29/2018 18:15 EDT Performed On: 09/29/2018 17:00 EDT by Shahnaz Trujillo Rn Chart Check Powerplans Initiated/Discontinued as Appropriate : Yes All Active Orders Reviewed : Yes Shahnaz Trujillo Rn - 09/29/2018 18:15 EDT documented in this encounter Plan of Treatment Not on file documented as of this encounter Visit Diagnoses Not on filedocumented in this encounter
--- OUTSIDE RECORDS SUMMARY | 2024-08-27 11:26 | XMS_ITS | Encounter Summary ---
Author Organization [employer] Address [address] [place] [address] Care Team Providers Care Tractor Operator Name Role Phone Unavailable Primary Care Provider Unavailabl e Encounter Details Date Type Department Care Team (Late st Contact Info) Description 03/25/2021 Transcribed Document [facility] [place] Family [facility] [place] [address] ProviderLeyda MD [address] [place] [address] [id number] Social History Tobacco Use Types Packs/Day Years Used Date Smoking Tobacco: Never Assessed Comments Unknown Sex and Gender Information Value Date Recorded Sex Assigned at Not on file Legal Sex Female 6:21 PM CDT Gender Identity Not on file Sexual Orientation Not on file documented as of this encounter Miscellaneous Notes * Cerner Conversion Note - Historical ProviderMD - 03/25/2021 2:18 PM CLINICAL PROGRAM MANAGER PAT Adult Entered On: 03/25/2021 14:20 EST Performed On: 03/25/2021 14:18 EST by Linda May Rn Height and Weight, Clinical Dosing Height Source : Measured Height Entry Format : [place] Height, Feet : 5 ft(Converted to: 152 cm, 60 Inch) Height, Inches : 1 Inch(Converted to: 0 ft 1 Inch, 2.54 cm) Clinical Height : 154.94 cm Weight Source : Standing scale Weight Entry Format : Kimball Clinical Dosing Weight : 81.08 kg Weight, Pounds : 178 lb Weight, Ounces : 6 oz Body Surface Area (BSA) : 1.8 m2 Body Mass Index : 33.8 kg/m2 (HI) [place] Body Weight : 47 kg Linda May Rn - 03/26/2021 9:05 EST Health Histories Smoking Status : Never (less than 100 in lifetime; none in last 30 days) Smokeless Tobacco Status : Never Implant/Device Type, Decorating Inspector and Model : wong Linda May Rn - 03/25/2021 14:18 EST Social History (As Of: 03/25/2021 14:20:45 EST) Tobacco: Never (less than 100 in lifetime) [...] 05/25/2018 13:10:53 EDT by KAMALA MOISE RN) Infectious Disease History Does patient have symptoms of COVID-19? : No Has the Patient Been Tested for COVID-19 in the last 14 days? : Yes, Patient stated results Negative Does the Patient state known exposure to a COVID-19 positive case in the last 14 days? : No Patient Vaccinated for COVID-19 : Fully vaccinated Linda May Rn - 03/25/2021 14:18 EST Infectious Disease Risk Screening Grid Cough < 2 wks of unknown origin : NO Cough > 2 weeks : NO Blood in Sputum : NO Fever or self-reported Fever : NO Rash of unknown origin : NO Headache : NO Stiff neck : NO Night Sweats : NO Unexplained Weight Loss : NO Diarrhea (3 episode per day) : NO Linda May Rn - 03/25/2021 14:18 EST Physical contact outside [place] in the last 30 days : No Hospitalized in Foreign Country : No Infectious Disease History : Chicken pox/Shingles, Hepatitis C, Influenza, Other: hepatits C- tested last week and tested neg INF Disease TB Screening Calc : 0 INF Disease Recent Travel Calc : 0 Linda May Rn - 03/25/2021 14:18 EST COVID19 PreProcedure Screening Is this an Emergent or Add on Procedure? : No Date PreProcedure COVID-19 test known? : Yes Date of PreProcedure COVID-19 : 03/23/2021 EST Has patient been isolated since the test : Yes Exposed to COVID19 symptoms since test? : No Linda May Rn - 03/25/2021 14:18 EST Anesthesia/Transfusion History Family History of Anesthesia Reaction : Prior transfusion without reaction Blood Transfusion Acceptable to Patient : Yes Transfusion History : Prior anesthesia without reaction Family History of Anesthesia Reaction : None Linda May Rn - 03/25/2021 14:18 EST Advance Directive Patient has Advance Directive *Q : No, patient refuses Advance Directive information Linda May Rn - 03/25/2021 14:18 EST [place] Suicide Severity Rating Scale (C-SSRS) CSSRS Past Month Wish to be : No CSSRS Past Month Suicidal Thoughts : No CSSRS Lifetime Suicide Behavior : No Suicide Severity Rating Score : 0 Suicide Severity Rating : No Additional Care Required at this time Linda May Rn - 03/25/2021 14:18 EST Psychosocial History Do You Have a History of the Following? : Anxiety, Depression Currently in Unsafe Situation : No Linda May Rn - 03/25/2021 14:18 EST General Info Want Family/Rep/Phys Notified of Admit : No Emergency Contact #1 : Devonte Aponte Emergency Contact #1 Emergency Contact #1 Relationship : spouse Emergency Contact #2 : na Emergency Contact #2 Phone Number : na Emergency Contact #2 Relationship : na Primary Language : Hebrew Preferred Communication Mode : Verbal Communication Barrier : None Cover Stitch Machine Operator Needed : No Linda May Rn - 03/25/2021 14:18 EST Lexa Scale Lexa Sensory Perception : No impairment Lexa Moisture : Rarely moist Lexa Activity : Walks frequently Lexa Mobility : No limitation Lexa Nutrition : Excellent Lexa Friction and Shear : No apparent problem Lexa Score : 23 Linda May Rn - 03/25/2021 14:18 EST Sleep Apnea Risk Assmt BMI Greater Than 35 kg/m2 : No Neck Circumference Greater Than 40 cm : No STOP-BANG Sleep Apnea Risk Level Score : 0 Linda May Rn - 03/26/2021 9:05 EST Hx of Obstructive Sleep Apnea Diagnosis : No Snore Loudly : No Tired, Fatigued, or Sleepy During Day : No Observed Stopping Breathing During Sleep : No Have/Are Being Treated for Hypertension : No Age over 50 Years Old : No Gender Male : No Linda May Rn - 03/25/2021 14:18 EST documented in this encounter Plan of Treatment Not on file documented as of this encounter Visit Diagnoses Not on filedocumented in this encounter
--- OUTSIDE RECORDS SUMMARY | 2024-08-27 11:26 | XMS_ITS | Encounter Summary ---
Author Organization [employer] Address [address] [place] [address] Care Team Providers Care Blade Bender Furnace Tender Name Role Phone Unavailable Primary Care Provider Unavailabl e Encounter Details Date Type Department Care Team (Late st Contact Info) Description 09/29/2018 Transcribed Document [facility] [place] Family Medicine [facility] [place] [address] ProviderLeyda MD [address] [place] [address] [id number] Social History Tobacco Use Types Packs/Day Years Used Date Smoking Tobacco: Never Assessed Comments Unknown Sex and Gender Information Value Date Recorded Sex Assigned at Not on file Legal Sex Female 6:21 PM CDT Gender Identity Not on file Sexual Orientation Not on file documented as of this encounter Miscellaneous Notes * Cerner Conversion Note - Leyda ProviderMD - 09/29/2018 3:35 PM CDT Pain Assessment Entered On: 09/29/2018 18:14 EDT Performed On: 09/29/2018 16:59 EDT by Shahnaz Trujillo Rn Intervention Information: HYDROmorphone Performed by Michelle Toribio Rn Patient Care Bedside on 09/29/2018 16:29:00 EDT HYDROmorphone,0.5mg IV Push,Peripheral Line 1,Pain (Severe 7-10) Pain Assessment Pain Assessment : Follow-up assessment Pain Scale Goal : 4 Pain Scale Used : 0-10 Scale Location : Abdominal Onset : Gradual Quality : Aching Pain Improved by : Medication Pain Worsened by : Movement Pain Improved by Intervention : Yes Shahnaz Trujillo Rn - 09/29/2018 18:14 EDT Pain Scale Intensity : 4 Shahnaz Trujillo Rn - 09/29/2018 18:14 EDT Image 4 - Images currently included in the form version of this document have not been included in the text rendition version of the form. documented in this encounter Plan of Treatment Not on file documented as of this encounter Visit Diagnoses Not on filedocumented in this encounter
--- OUTSIDE RECORDS SUMMARY | 2024-08-27 11:26 | XMS_ITS | Encounter Summary ---
Author Organization [employer] Address [address] [place] [address] Care Team Providers Care Plaster Maker Name Role Phone Unavailable Primary Care Provider Unavailabl e Encounter Details Date Type Department Care Team (Late st Contact Info) Description 03/26/2021 Transcribed Document [facility] [place] [facility] [address] [place] [address] ProviderLeyda MD [address] [place] [id number] Social History Tobacco Use Types Packs/Day Years Used Date Smoking Tobacco: Never Assessed Comments Unknown Sex and Gender Information Value Date Recorded Sex Assigned at Not on file Legal Sex Female 6:21 PM CDT Gender Identity Not on file Sexual Orientation Not on file documented as of this encounter Miscellaneous Notes * Cerner Conversion Note - Leyda ProviderMD - 03/26/2021 1:42 PM 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 Avoid high fat/greasy foods. Do not drink any alcoholic beverages, Drink at least 8-10 glasses of water per day if allowed Activity after Discharge: As tolerated, Rest and relax today, No strenuous activity. walk 3-5x/day. Lifting Restrictions: no lifting heavier than 10lbs Driving after Discharge: Do not drive for 24 hours or while taking narcotic pain medication May Return to Work/School: when cleared by surgeon Showering/Bathing: May shower. No tub bathing, soaking or swimming. Do not scrub incisions, pat dry. No lotions, ointments or powders to incisions Notify Provider of: excessive bleeding, swelling, pain, inability to urinate or have a bowel movement. also notify of pus-like drainage or fever > 101. Wound/Incision Care after Discharge: Keep operative site/wound site clean and dry. no lotions, powders, or ointments to incisions Medical Equipment for Home Use: splint pillow for coughing and sneezing. ice pack 20 min every hour as needed for 2 days. Pain medication: take with food and use stool softeners twice daily to prevent constipation Do not exceed 4000mg of Tylenol (acetaminophen) per 24 hour period. You were given Oxycodone 5mg at 1:41 pm Follow-Up Appointments Follow Up with MARY TOMAS When 04/01/2021 09:45 AM EST Comments myranda f/u 1 week Where: [address] [facility] [address] [place] [address]- Business (1) Medications What How Much When Instructions Next Dose acetaminophen-hydrocodone (acetaminophen-HYDROcodone 325 mg-5 mg oral tablet) 1-2 tabs Oral Every 6 Hours as needed for for pain Pickup at [facility] ondansetron (Zofran 4 mg oral tablet) 1 Tablet(s) Oral Every 8 Hours as needed for Nausea [facility]up at [facility] estradiol 2 Milligram(s) Oral Every Day magnesium citrate Oral Every Day omeprazole 40 Milligram(s) Oral Every Day Pharmacy Information [facility] [place]: [address] [place], [place] [id number] [place], [place] [id number] [phone] Take your medications faithfully. Do NOT skip [...] and medications per pharmacy guidance. Education Materials Minimally Invasive Cholecystectomy, Care After This sheet [...] these instructions at home: Medicines ??? Take owsm-owp-uwmdzwa and prescription medicines only as told by [...] your pee (urine) pale yellow. ? Take efnl-zdr-lqchyvz or prescription medicines. ? Eat foods that [...] cannot use soap and water, use hand clinical trial data manager. ? Change your bandage as told [...] Get up to take short walks every 1???2 hours. This is important. Ask for help [...] provider. Document Revised: 02/05/2020 Document Reviewed: 02/05/2020 [employer] Patient Education ?? [address]. Outpatient Surgery, Adult, Care After This sheet [...] children on your own. Medicines ??? Take zaeq-hhd-oeovjjc and prescription medicines only as told by [...] keep your urine pale yellow. ? Take wkyd-uky-tkhgfkv or prescription medicines. ? Eat foods that [...] added (diluted fruit juice). ? Eat bland, hswd-po-uawppg foods in small amounts as you are [...] and water are not available, use hand clinical trial data manager. ? Change your dressing as told [...] drink clear fluids slowly and eat bland, cjnq-pm-wzuoan foods in small amounts. ??? Ask your health care provider what activities are safe for you. This information is not intended to replace advice given to you by your health care provider. Make sure you discuss any questions you have with your health care provider. Document Revised: 06/20/2020 Document Reviewed: 12/13/2019 [employer] Patient Education ?? 2020 [employer] Emergency Awareness and Preventative Care STROKE is [...] Assistance with quitting is available by contacting 1-643-SZKP-NOW. This is a free resource providing counseling, [...] This Visit (last charted value for your 03/26/2021 visit) No Laboratory or Other Results This Visit Patient Name:HECTOR MELINDA GORAN I have received this information and was given the opportunity to ask questions. Patient/Wafer Batter Mixer Name: Patient/Wafer Batter Mixer Signature: Relationship to Patient: Clinician/Hospital Wafer Batter Mixer Signature: Date: Electronically signed by Ernesto Betancourt Conversion Solar Photovoltaic Installer Hali at 06/22/2022 9:27 AM CDT documented in this encounter Plan of Treatment Not on file documented as of this encounter Visit Diagnoses Not on filedocumented in this encounter
--- OUTSIDE RECORDS SUMMARY | 2024-08-27 11:26 | XMS_ITS | Encounter Summary ---
Author Organization [facility] [employer] Address [address] [place] [address] Care Team Providers Care Engine Repairer Name Role Phone Unavailable Primary Care Provider Unavailabl e Encounter Details Date Type Department Care Team (Late st Contact Info) Description 03/26/2021 Transcribed Document [facility] [place] [facility] [place] [place] [address] ProviderLeyda MD [address] [place] [id number] Social History Tobacco Use Types Packs/Day Years Used Date Smoking Tobacco: Never Assessed Comments Unknown Sex and Gender Information Value Date Recorded Sex Assigned at Not on file Legal Sex Female 6:21 PM CDT Gender Identity Not on file Sexual Orientation Not on file documented as of this encounter Miscellaneous Notes * Cerner Conversion Note - Leyda ProviderMD - 03/26/2021 11:01 AM [place] [facility] Main OR IntraOp Summary Primary Physician: MARY TOMAS MD-SUR Finalized Date/Time: 03/27/21 12:48:54 Pt. Name: FADI MELINDA WOODY /Sex: 1975 Female Med Rec #: [id number] Physician: MARY TOMAS MD-SUR Financial #: [id number] Pt. Type: O Room/Bed: Admit/Disch: 03/26/21 08:37:00 - 03/26/21 14:25:00 Institution: [facility] IntraOp Case Attendance Entry 1 Entry 2 Entry 3 Case Attendee MARY TOMAS MD-SUR Chiavetta, Michelle BOWEN, JON B, MD-ANS , Non Emp SANDBLASTER GLASS Role Performed Surgeon/Proceduralist, SANDBLASTER GLASS/Nurse Lay Out Helper Anesthesiologist of First Record Time In 03/26/21 10:33:00 03/26/21 10:33:00 03/26/21 10:33:00 Time Out 03/26/21 11:48:00 03/26/21 11:48:00 03/26/21 11:48:00 Procedure Cholecystectomy Cholecystectomy Cholecystectomy Laparoscopic Laparoscopic Laparoscopic Other Attendee Superficial Wound Closed By: Last Modified By: Faustino Kline, Faustino Jameson, Faustino Jameson, KOLE 03/26/21 11:48:56 03/26/21 11:48:56 03/26/21 11:48:56 Entry 4 Entry 5 Entry 6 Case Attendee Abelardo Mora ST Spencer, Amber, Faustino Jameson, KOLE Role Performed Risk Compliance Analyst, First Clasp Machine Operator, First Clasp Machine Operator, Second Time In 03/26/21 10:33:00 03/26/21 10:33:00 03/26/21 10:33:00 Time Out 03/26/21 11:48:00 03/26/21 11:48:00 03/26/21 11:48:00 Procedure Cholecystectomy Cholecystectomy Cholecystectomy Laparoscopic Laparoscopic Laparoscopic Other Attendee Superficial Wound Closed By: Last Modified By: Faustino Kline, Faustino Jameson, Faustino Jameson, KOLE 03/26/21 11:48:56 03/26/21 11:48:56 03/26/21 11:48:56 Entry 7 Entry 8 Case Attendee MAGED HERNANDEZ, BASHIRUB TAHIRA CELIS, SSI TECH Role Performed Scrub, First Loss Prevention And Safety Manager, Ancillary Time In 03/26/21 10:33:00 03/26/21 10:33:00 Time Out 03/26/21 11:48:00 03/26/21 11:48:00 Procedure Cholecystectomy Cholecystectomy Laparoscopic Laparoscopic Other Attendee Superficial Wound Closed By: Last Modified By: Faustino Kline, Faustino Jameson, KOLE 03/26/21 11:48:56 03/26/21 11:48:56 [facility] IntraOp Case Attendance Audit 03/26/21 11:48:56 Printed Circuit Boards Solder Leveler: TERESSA Modifier: ISREALS 1 <+> Time Out 1 <*> Procedure Cholecystectomy Laparoscopic 2 <+> Time Out 2 <*> Procedure Cholecystectomy Laparoscopic 3 <+> Time Out 3 <*> Procedure Cholecystectomy Laparoscopic 4 <+> Time Out 4 <*> Procedure Cholecystectomy Laparoscopic 5 <+> Time Out 5 <*> Procedure Cholecystectomy Laparoscopic 6 <+> Time Out 6 <*> Procedure Cholecystectomy Laparoscopic 7 <+> Time Out 7 <*> Procedure Cholecystectomy Laparoscopic 8 <+> Time Out 8 <*> Procedure Cholecystectomy Laparoscopic 03/26/21 10:45:18 Printed Circuit Boards Solder Leveler: PANTANOS Modifier: PANTANOS <+> 1 Procedure 2 <+> Time In 2 <*> Procedure Cholecystectomy Laparoscopic 3 <+> Time In 3 <*> Procedure Cholecystectomy Laparoscopic 4 <+> Time In 4 <*> Procedure Cholecystectomy Laparoscopic 5 <+> Time In 5 <*> Procedure Cholecystectomy Laparoscopic 6 <+> Time In 6 <*> Procedure Cholecystectomy Laparoscopic 7 <+> Time In 7 <*> Procedure Cholecystectomy Laparoscopic 8 <+> Time In 8 <*> Procedure Cholecystectomy Laparoscopic [facility] IntraOp Case Times Entry 1 Patient In Room Time 03/26/21 10:33:00 Out Room Time 03/26/21 11:48:00 Anesthesia Start Time 03/26/21 10:33:00 Stop Time 03/26/21 11:48:00 Surgery / Procedure Times Start Time 03/26/21 11:01:00 Stop Time 03/26/21 11:45:00 Last Modified By: Faustino Kline RN 03/26/21 11:48:40 [facility] IntraOp Case Times Audit 03/26/21 11:48:40 Printed Circuit Boards Solder Leveler: PANTANOS Modifier: PANTANOS <+> 1 Out Room Time <+> 1 Stop Time 03/26/21 11:48:07 Printed Circuit Boards Solder Leveler: PANTANOS Modifier: PANTANOS <+> 1 Stop Time 03/26/21 11:01:12 Printed Circuit Boards Solder Leveler: PANTANOS Modifier: PANTANOS <+> 1 Start Time [facility] IntraOp Cautery Entry 1 ESU Identification Cautery Type Monopolar ESU ID Number [id number] ID Type Hospital Number Cautery Settings Cut Setting 1 Coag Setting 30 ESU Grounding Pad Ground Pad Type Reusable electrode pad Grounding Pad Site Posterior Grounding Pad Estrella Hernandez Rn Applied By Grounding Pad Site Warm, dry and intact Skin Condition Before Cautery Grounding Pad Site Warm, dry and intact Skin Condition After Cautery Last Modified By: Faustino Kline RN 03/26/21 10:43:58 [facility] IntraOp Communication Entry 1 Communication To Family/Significant other Comment LEFT MSG Communication By Estrella Hernandez Rn Date and Time 03/26/21 11:05:00 Last Modified By: Faustino Kline RN 03/26/21 11:05:36 [facility] IntraOp Communication Audit 03/26/21 11:05:36 Printed Circuit Boards Solder Leveler: TERESSA Modifier: TERESSA <+> 1 Date and Time <+> 1 Comment [facility] IntraOp Counts Verification Entry 1 Procedure Cholecystectomy Laparoscopic Count Info Count Type Sponge, Sharps, Instrument, Miscellaneous Counts Verification Baseline/pre-procedure Sequence Count Results Correct, surgeon notified Counts Performed By Count Performed By MAGED HERNANDEZ SCRUB (Scrub) TECH Count Performed By Faustino Kline RN (RN) Last Modified By: Faustino Kline RN 03/26/21 10:43:00 [facility] IntraOp Counts Final Entry 1 Procedure Cholecystectomy Laparoscopic Final Count Info Count Type Sponge, Sharps, Miscellaneous Counts Verification Skin Closure/end of Sequence procedure Count Results Correct, surgeon notified Counts Performed By Count Performed By MAGED HERNANDEZ SCRUB (Scrub) TECH Count Performed By Estrella Hernandez Rn (RN) Last Modified By: Faustino Kline RN 03/26/21 10:43:15 [facility] IntraOp Cultures and Spec Summary Entry 1 Cultrures and Specimens Specimen Ordered: Yes Test(s) Routine/Path-Lab Requested/Final Disposition Last Modified By: Faustino Kline RN 03/26/21 10:44:02 [facility] IntraOp Departure from OR Entry 1 Integumentary Assessment Integumentary WDL with patient Assessment WDL specific variances Patient's Normal Surgical incisions = Integumentary Abdomen Variance(s) Transfer/Handoff Transfer to PACU Phase I Handoff Method Phone call Post-op Transport Stretcher/Gurney Via Patient Transport Abelardo Mora ST, Accompanied by Nitza Cameron Non Emp SANDBLASTER GLASS Last Modified By: Faustino Kline RN 03/26/21 10:46:25 [facility] IntraOp Dressing and Packing Entry 1 Type Dressing Location Abdomen Wound Dressing Item Skin Closure Glue Applied By Abelardo Mora ST Other Comments Dermabond Last Modified By: Faustino Kline RN 03/26/21 10:44:58 [facility] IntraOp Fire Risk Assessment Entry 1 Fire Info Surgical Site or 0- No Incision Above the Xyphoid Open O2 Source 0- No (Mask or Cannula) Available Ignition 1- Yes (ESU, Laser, Light Source) Fire Risk 1 Assessment Score Fire Score Fire Risk Yes Assessment Complete Fire Risk Estrella Hernandez Rn Assessment Verified By Fire Risk 03/26/21 10:30:00 Assessment Verified Date/Time Fire Risk Standard Fire Yes Safety Precautions Followed Last Modified By: Faustino Kline RN 03/26/21 10:44:19 [facility] IntraOp General Case Senior C Developer 1 Case Information OR OR 08 [facility] Case Level 1 Room Verified Yes Wound Class 2 - Clean-Contaminated Specialty General Anesthesia Type General ASA Class 2 Diagnosis Preop Diagnosis CHOLECYSTITIS Postop Same As Preop Yes Postop Diagnosis CHOLECYSTITIS Wound Class Definitions Last Modified By: Faustino Kline RN 03/26/21 10:45:09 [facility] IntraOp General Case Data Audit 03/26/21 10:45:09 Printed Circuit Boards Solder Leveler: TERESSA Modifier: TERESSA <+> 1 Wound Class [facility] IntraOp Intraoperative Assessment Entry 1 Handoff Method Online nursing summary Valid History / Yes Physical in Chart Preoperative Yes Checklist Reviewed/Evaluated Allergies Reviewed Yes Patient is Latex No Sensitive Level of WDL Consciousness (WDL = Alert, Oriented to Person, Place, and Time) Skin Assessment Yes Verified Present Upon IVs Arrival to OR Last Modified By: Faustino Kline RN 03/26/21 10:46:11 [facility] IntraOp Intraoperative Equipment Entry 1 Type Monitoring Equipment Equipment Oswaldo Suction System Intraop Monitoring Electrocardiogram Three lead placement (ECG) Electrode Placement Blood Pressure Non-Invasive BP Device Source Blood Pressure Arm, right upper Location Pulse Oximeter Hand, right Probe Site Antiembolic Devices Antiembolic Devices Sequential compression device, knee high Antiembolic Device Bilateral Location Antiembolic Device SCD'S ON AND WORKING Setting PRIOR TO INDUCTION Scopes Photo/Video Documentation Photo No Video No Intraop Equipment Sequential compression Comment devices on and in operation prior to induction of anesthesia. Last Modified By: Faustino Kline RN 03/26/21 10:45:59 [facility] IntraOp Medication Admin Entry 1 Medication/Irrigant Marcaine 0.5% w/ epinephrine 1:200,000 30ml vial - [id number] Route of Local Administration Dose Dose 18 Unit of Measure ml Administered By MARY TOMAS MD-JIMY Procedure Irrigation Last Modified By: Faustino Kline RN 03/26/21 10:45:31 [facility] IntraOp Patient Positioning Entry 1 Procedure Cholecystectomy Laparoscopic Body Position Supine Left Arm Position Secured on padded arm board Right Arm Position Secured on padded arm board Left Leg Position Uncrossed, parallel Right Leg Position Uncrossed, parallel Feet Uncrossed Yes Pressure Points Yes Checked Positioning Devices Head Rest, Arm Board, Arm Board, Pad, Elbow, Pad, Elbow, Safety Strap, Thighs, Foot Board Positioned By Estrella Hernandez, Kole, MARY TOMAS MD-JIMY, Abby, Abelardo, ST, Rakesh, Nitza , Betzy Emp SANDBLASTER GLASS Position Verified Positioning Yes Verified by Anesthesia Positioning Yes Verified by Surgeon Last Modified By: Faustino Kline RN 03/26/21 10:45:16 [facility] IntraOp Sign In Entry 1 Patient, Site, Yes Procedure Identified Surgical Consent Yes Confirmed Relevant Surgical Yes Documents Available Surgical Site N/A Marked by person performing procedure Anesthesia Machine Yes Check Completed Medication Checks Yes Completed Allergies Yes Airway Difficult Yes Airway/Aspiration Risk Difficult Yes Airway/Aspiration Intervention Equipment Available Blood Loss Risk Yes Blood Loss No Intervention Equipment Prepared and Ready Blood Identifiers Not applicable Verified Per Policy Hypothermia Risk Yes Warming Measures Yes Taken Last Modified By: Faustino Kline RN 03/26/21 10:46:19 [facility] IntraOp Sign Out Entry 1 RN Confirmation Surgical Yes Procedure(s) Identified Instrument, Sponge Yes and Sharps Counts Correct/Documented Equipment Problems N/A Documented Specimen Labeled Yes Correctly Urinary Catheter N/A Documented in IView Wound Yes classification reviewed, verified and updated post case in both the General Case Data and Procedure segments [place] Patient Yes Recovery Concerns Reviewed with Anesthesia Provider, Surgeon and RN [place] Patient Yes Management Concerns Reviewed with Anesthesia Provider, Surgeon and RN Safety Checklist Yes Elements Complete? RN Sign Out Estrella Hernandez Rn Signature RN Sign Out 03/26/21 11:48:00 Signature Date/Time Plan of Care Outcome - [...] of Care Outcome - Xray/Images OUTCOME STATEMENT: Goal met Absence of observable signs or symptoms of radiation injury Plan of Care Outcome - Counts OUTCOME STATEMENT: Goal met Absence of signs and symptoms of injury related to extraneous objects Last Modified By: Faustino Kline RN 03/26/21 11:48:51 [facility] IntraOp Sign Out Audit 03/26/21 11:48:51 Printed Circuit Boards Solder Leveler: LESVIAANOS Modifier: PANTANOS <+> 1 RN Sign Out Signature Date/Time [facility] IntraOp Skin Prep Entry 1 Procedure Cholecystectomy Laparoscopic Prescribed Yes Pre-Surgical Prep Completed Prep Area ABDOMEN Intraop Prep Prep Agents Chloraprep Prep by MARY TOMAS MD-JIMY Hair Removal Methods No hair removal performed Last Modified By: Faustino Kline RN 03/26/21 10:44:52 [facility] IntraOp Surgical Procedures Entry 1 Procedure Cholecystectomy Laparoscopic Additional (LAP CHOLECYSTECTOMY Procedure WITH POSSIBLE IOC) Description Primary Procedure Yes Primary Surgeon MARY TOMAS MD-JIMY Start 03/26/21 11:01:00 Stop 03/26/21 11:45:00 Anesthesia Type General Specialty General Wound Class 2 - Clean-Contaminated Last Modified By: Faustino Kline RN 03/26/21 11:48:31 [facility] IntraOp Surgical Procedures Audit 03/26/21 11:48:31 Printed Circuit Boards Solder Leveler: PANTANOS Modifier: PANTANOS 1 <*> Procedure Cholecystectomy Laparoscopic 1 <+> Wound Class 03/26/21 11:48:18 Printed Circuit Boards Solder Leveler: PANTANOS Modifier: PANTANOS <+> 1 Stop 03/26/21 11:01:21 Printed Circuit Boards Solder Leveler: PANTANOS Modifier: PANTANOS <+> 1 Start [facility] IntraOp Temp Regulation Devices Entry 1 Temp Regulation Temperature Warm blankets, Forced Regulation Device Air Warming device, Room temperature Temperature Upper body Regulation Site Temperature ChiphoebettJohnathan duranNtiza Regulation Device , Non Emp SANDBLASTER GLASS Applied by Last Modified By: Faustino Kline RN 03/26/21 10:45:37 [facility] IntraOP Time Out Entry 1 Procedure to be Cholecystectomy Performed Laparoscopic Time Out Time Out Pause Time 03/26/21 11:00:00 All activity Yes suspended (unless life threatening [...] present, Performed in location of procedure after prepped/draped Antibiotic Yes Prophylaxis Administered Or In Progress Within the Last 60 Minutes Beta Dolly N/A Administered Venous N/A Thromboembolism Prophylaxis Required Anticipated Critical Events Surgeon None expected, Critical or unexpected steps, Anticipated blood loss, Special equipment need Anesthesia Provider Patient specific concerns, None expected Nursing Assures Sterility of instruments, Equipment concerns or issues, Implant Availability Essential Imaging Yes Labeled and Displayed Last Modified By: Faustino Kline RN 03/26/21 11:01:08 [facility] IntraOP Time Out Audit 03/26/21 11:01:08 Printed Circuit Boards Solder Leveler: TERESSA Modifier: TERESSA 1 <+> Time Out Pause Time 1 <*> Procedure to be Performed Cholecystectomy Laparoscopic Case Comments <None> Finalized By: HERBERT DRISCOLL Document Signatures Signed By: Faustino Kline RN 03/26/21 11:49 HERBERT DRISCOLL 03/27/21 12:48 Unfinalized History Date/Time Username Reason for Unfinalizing Freetext Reason for Unfinalizing 03/27/21 12:47 ROBBIN Correct Billing Electronically signed by Ser[facility]in [facility] Conversion Warehouser Cerner at 06/22/2022 9:12 AM CDT documented in this encounter Plan of Treatment Not on file documented as of this encounter Visit Diagnoses Not on filedocumented in this encounter
--- OUTSIDE RECORDS SUMMARY | 2024-08-27 11:26 | XMS_ITS | Data Portability ---
Author Organization ADDIE Jorge patten, CKS ELLERSLIE CLOSED Address [address] [facility] [address] [place] [address] Care Team Providers Care Cl[employer] Text[employer] Teacher Name Role Phone GONZALES AMADOR Primary Care Provider [phone] PARVEZ SANTILLAN Curatorial Specialist MISBAH SLATER Percussion Instructor [phone] Assessment Encounter Date Assessment Date Assessment LastModified by Organization Details LastModified Time 07/18/2023 07/18/2023 Interval dysphagia followed by [facility], repeating scope with [facility] in August 2023. [email or web address] Not available 07/18/2023 16:15:50 09/01/2023 09/01/2023 Ms. Aponte is a very pleasant, 48 y.o. patient with a h/o Scleroderma who was last seen in the office on 06/09/22 for chest pain and LBBB. She was recently evaluated at [facility] for her scleroderma diagnosis. An echocardiogram was performed at that time. It documented a decline in her left ventricular ejection fraction from a baseline of 50-55% per most recent echocardiogram last year at [facility] to the left trickle ejection fraction of 35% with some regional wall motion abnormalities. With this new information, patient requested a follow-up visit today. RTC: To be determined CV procedures: LHC (Coronary Angiogram, LHC, LV gram), RHC Not available 09/01/2023 13:01:14 12/05/2023 12/05/2023 Ms. Aponte is a very pleasant, 48 y.o. patient with a h/o Scleroderma who was last seen in the office on 09/01/23 for chest pain and LBBB. To review: She was recently evaluated at [facility] for her scleroderma diagnosis. An echocardiogram was performed at that time. It documented a decline in her left ventricular ejection fraction from a baseline of 50-55% per most recent echocardiogram last year at [facility] to the left ventricular ejection fraction of 35% with some regional wall motion abnormalities. Cardiac MRI (11/11/23): LVEF=40.1%, no fibrosis or scarring. Patient returns to the clinic today for a scheduled follow-up visit. RTC: 3 months CV Study: 5 day Holter monitoring Not available 12/05/2023 18:37:17 Plan of Treatment Reminders Order Date Submit Date Provider Last Modified By Organization Details Last Modified Time Details Appointments RHEUM RECHECK 2024 03:45P M PARVEZ SANTILLAN MD Not available Not available Not available CT SCAN 2025 02:40P M ct_scan Not available Not available Not available RECHECK 2025 03:00P M DR AILYN AHUJA Not available Not available Not available Lab sjogren antibody panel, serum 2023 024 [id number] [facility], [address] [place] [address], [id number], 07/25/2023 12:17:02 glycohemo globin, total, blood 2023 024 [id number] [facility], [address] [place] [address], [id number], 07/25/2023 12:17:01 TSH, serum or plasma 2023 024 [email or web address] [facility], [address] [place] [address], [id number], 07/25/2023 12:17:01 BMP, serum or plasma 2023 024 [id number] [facility], [address] [place] [address], [id number], 07/25/2023 12:17:01 CBC w/ auto diff 2023 024 [facility], [address] [place] [address], [id number], 07/25/2023 12:17:02 Referral None recorded. Procedures None recorded. Surgeries None recorded. Imaging CT, chest, w/o contrast 2024 025 [id number] [facility], [address] [place] [address], [id number], 05/01/2024 09:48:02 CT, chest, w/o contrast 2023 024 [facility], [address] [place] [address], [id number], 04/20/2024 13:54:19 Medication Orders lisinopri l 2.5 mg tablet 2023 025 [facility] [id number], [address] [place] [address], [id number], 04/20/2024 15:17:26 pilocarpi ne 5 mg tablet 2023 024 [id number], [address] [place], [place], [id number], 12/05/2023 15:21:15 Patient TargetsNo targets recorded. Patient Instructions Encounter Date Encounter Id Patient Instructions Last Modified By Organization Details Last Modified Time 12/05/2023 [id number] body mass index: care instructions Not available 12/05/2023 16:17:25 Reason for Referral None Reported. Results Created Date Observation Date Name Description Value Unit Range Abnormal Flag Note LastModifiedBy Organization Detail LastModifiedTime 09/06/19 24 09/01/2023 marni beltran am No observ ation record ed. BARCODE Not Available 2023 15:32:46 09/16/19 24 09/16/2023 , farida bruce, for vascu lar acces s No observ ation record ed. [email or web address] Not Available 09/18 08:13:12 11/24/19 24 11/21/2023 MRI, cardi ac, for veloc ity flow mappi ng No observ ation record ed. [email or web address] Not Available 2023 10:28:21 12/24/19 24 12/21/2023 event monit or No observ ation record ed. MARTI Not Available 2023 09:11:41 04/20/19 25 04/20/2024 CT, chest , w/o contr ast [facility] [address] [place] [address] Patien t Name: CHARISSA APONTE Patielvis t : 1974 Patien t Orderi ng Provid er: CHAYA VILLA EXAM DATE: 2024 EXAM: CT CHEST W/O CONTRA ST CLINIC AL INFORM ATION: Shortn ess of breath . Sclero derma TECHNI QUE: Multip le axial CT images of the chest were obtain ed withou t inject ion of IV contra st. COMPAR BRENDON: None. FINDIN GS: AIRWAY S AND LUNGS: Trache a, princi pal bronch i and major bronch ial branch es are patent and normal . Extrem david subtle puncta te nodule right base, stable on retros pectiv e review of the prior study. This is visibl e on image #174 series 202. There is no signif icant alveol ar or inters titial lung diseas e MEDIAS TINUM: No medias tinal lympha denopa thy. Aorta, SVC, pulmon courtney arteri es, pulmon courtney veins and their major branch es and tribut carolyn are normal . No gross cardia c abnorm ality. Debris and food fills the esopha geal lumen. PLEURA AND CHEST WALL: No pleura l effusi on or mass. No chest wall abnorm ality. UPPER ABDOMI NAL ORGANS : Liver, spleen , pancre as, adrena ls and both kidney s are normal . Gallbl adder absent . COMBIN ED IMPRES MELA: 1. Extrem david subtle puncta te nodule right base, stable . Recomm end follow -up screen ing chest CT one year 2. Debris /food filled esopha sabi may indica te sclero derma impact on the esopha sabi Interp reted By: Marvin Farrell MD Electr onical ly Signed By: Marvin Farrell MD on 1:49 PM pollo [facility] [address], [phone], 04/20/2024 13:56:26 Result Notes Documentation Provider Name and Address Organization Details Recorded Time Ct, Chest, W/o Contrast : [facility] [address] [place] [address] Patient Name: MELINDA APONTE Patient : 1975 Patient Ordering Provider: CHAYA VILLA EXAM DATE: 04/20/2024 EXAM: CT CHEST W/O CONTRAST CLINICAL INFORMATION: Shortness of breath. Scleroderma TECHNIQUE: Multiple axial CT images of the chest were obtained without injection of IV contrast. COMPARISON: None. FINDINGS: AIRWAYS AND LUNGS: Trachea, principal bronchi and major bronchial branches are patent and normal. Extremely subtle punctate nodule right base, stable on retrospective review of the prior study. This is visible on image #174 series 202. There is no significant alveolar or interstitial lung disease MEDIASTINUM: No mediastinal lymphadenopathy. Aorta, SVC, pulmonary arteries, pulmonary veins and their major branches and tributaries are normal. No gross cardiac abnormality. Debris and food fills the esophageal lumen. PLEURA AND CHEST WALL: No pleural effusion or mass. No chest wall abnormality. UPPER ABDOMINAL ORGANS: Liver, spleen, pancreas, adrenals and both kidneys are normal. Gallbladder absent. COMBINED IMPRESSION: 1. Extremely subtle punctate nodule right base, stable. Recommend follow-up screening chest CT one year 2. Debris/food filled esophagus may indicate scleroderma impact on the esophagus Interpreted By: Marvin Farrell MD A BRUNER MD [address] [place] [address], [phone], [facility] 04/20/2024 13:56:26 Problems No Known Problems Procedures Surgical History Date Name Laterality Status Provider Name and Address Organization Details Recorded Time 09/16/19 24 COMBINED RIGHT AND LEFT HEART CATHETERIZATION (SURG) completed [facility] 09/19/2023 08:03:09 09/01/19 24 EKG completed MISBAH SLATER MD [address] [place], [address], [place] [facility] 09/01/2023 12:24:55 03/11/19 24 Airway Resistance completed Gisel Ayah [place] [facility] 03/11/2023 14:51:48 03/11/19 24 Diffusion Capacity completed Gisel Ayah [place] [facility] 03/11/2023 14:51:47 03/11/19 24 Lung Volumes, Plethysmography completed Gisel Ayah [place] [facility] 03/11/2023 14:51:56 03/11/19 24 Spirometry completed Gisel Ayah [place] [facility] 03/11/2023 14:51:45 03/11/19 24 Pulmonary Function Testing completed CHAYA REDMAN MD [address] [place], [address], [place] [facility] 03/11/2023 15:04:06 06/05/19 23 Stress Test - Nuclear Lexiscan completed MISBAH SLATER MD [address] [place], [address], [place] [facility] 06/04/2022 16:55:23 05/21/19 23 EKG completed MISBAH SLATER MD [address] [place], [address], [place] [facility] 05/21/2022 06:25:05 05/21/19 23 Echocardiogram completed MISBAH SLATER MD [address] [place], [address], [place] [facility] 05/20/2022 14:45:47 12/24/19 22 Airway Resistance completed Gabrielaroger Avendaño [place] [facility] 12/23/2021 09:23:10 12/24/19 22 Diffusion Capacity completed Gabriela Avendñao [place] [facility] 12/23/2021 09:23:09 12/24/19 22 Lung Volumes, Plethysmography completed Gabriela Avendaño [place] [facility] 12/23/2021 09:23:15 12/24/19 22 Spirometry completed Gabriela Avendaño [facility] 12/23/2021 09:23:13 05/22/19 22 Airway Resistance completed [facility] 05/21/2021 08:59:09 05/22/19 22 Diffusion Capacity completed [facility] 05/21/2021 08:59:05 05/22/19 22 Lung Volumes, Plethysmography completed [facility] 05/21/2021 08:59:06 05/22/19 22 Spirometry with Bronchodilator completed [facility] 05/21/2021 08:59:13 05/08/19 Echocardiogram completed YIN ECKERT MD [address] [place], [address] 05/08/2021 09:50:04 05/08/19 22 EKG completed FLORES PLASCENCIA PA-C [address] [place], [address] 05/07/2021 14:26:41 section completed [facility] 05/21/2021 08:51:52 Hysterectomy/bladde r repair completed [facility] 05/21/2021 08:51:57 cholecystectomy completed [facility] 05/21/2021 08:52:07 Jim fundoplication completed [facility] 05/21/2021 08:52:23 Breast augmentation w/implt completed [facility] 05/21/2021 08:52:35 procedure on knee completed Leda [facility] 04/16/2022 10:10:21 endoscopy completed Ledaremigio Aponte [facility] 04/16/2022 10:10:41 Imaging Results None recorded. Procedure Notes None recorded. Medical Equipment None Reported. Allergies Allergen ID Allergen Name Allergen Category Reaction Reaction Severity Criticality Documentation Date Start Date Code Code System Note Provider Name and Address Organization Details Recorded Time 800520 Lamictal medicatio n Not available Not available Not available 04/30/2021 2 RxNorm Maxine dyer [facility] 2 10:06:03 202727 lithium Not available Not available Not available Not available 04/30/2021 6448 [facility] 2 10:06:11 199305 Levaquin medicatio n Not available Not available Not available 12/05/2023 82527 2 RxNorm Linnette Kam [facility] 4 15:20:22 Medications Name Sig Start Date Stop Date Status Note LastModified by Organization Details LastModified Time Levsin 0.125 mg tablet Take 1 tablet every 4 hours by oral route. active Not Available Not Available No t Available pilocarpine 5 mg tablet Take 1 tablet 3 times a day by oral route for 30 days. 12/04 completed Not Available Not Available Not Available amitriptylin e 75 mg tablet Take 1 tablet every day by oral route. active Not Available Not Available No t Available fluconazole 150 mg tablet 04/30 completed Not Available Not Available Not Available hydrocodone 5 mg-acetamino phen 325 mg tablet 04/30 completed Not Available Not Available Not Available ondansetron HCl 4 mg tablet 04/30 completed Not Available Not Available Not Available famotidine 40 mg tablet Take 1 tablet every day by oral route. active Not Available Not Available No t Available tramadol 50 mg tablet Take 1 tablet twice a day by oral route for 30 days. 12/09 completed Not Available Not Available Not Available spironolacto ne 25 mg tablet Take 1 tablet every day by oral route. active Not Available Not Available No t Available carvedilol 3.125 mg tablet Take 1 tablet twice a day by oral route. active Not Available Not Available No t Available amitriptylin e 25 mg tablet Take 2 tablets every day by oral route. 12/04 completed Not Available Not Available Not Available amitriptylin e 10 mg tablet Take 1 tablet every day by oral route. 03/11 completed Not Available Not Available Not Available estradiol 2 mg tablet active Not Available Not Available No t Available hydroxychlor oquine 200 mg tablet TAKE 1 TABLET BY MOUTH DAILY 2023 active Not Available Not Available Not Avai lable amoxicillin 875 mg-potassium clavulanate 125 mg tablet 04/30 completed Not Available Not Available Not Available AcipHex 20 mg tablet,delay ed release Take 1 tablet twice a day by oral route. active Not Available Not Available No t Available magnesium 500MG DAILY active Not Available Not Available No t Available estradiol 2MG DAILY 07/17 completed Not Available Not Available Not Available famotidine 40 mg 12/09 completed Not Available Not Available Not Available Advil NEEDED 12/09 completed Not Available Not Available Not Available Tylenol NEEDED active Not Available Not Available No t Available Protonix 07/17 completed Not Available Not Available Not Available omeprazole 20 mg tablet,delay ed release Take every day by oral route. 06/18 completed Not Available Not Available Not Available Dexilant 60 mg capsule, delayed release Take 1 capsule every day by oral route for 56 days. 12/04 completed Not Available Not Available Not Available Jardiance 10 mg tablet Take 1 tablet every day by oral route. active Not Available Not Available No t Available colchicine 0.6 mg capsule Take 1 capsule every day by oral route. active Not Available Not Available No t Available Entresto 24 mg-26 mg tablet Take 1 tablet twice a day by oral route. active Not Available Not Available No t Available Motegrity once daily active Not Available Not Available No t Available Vitals Date Recorded Body height Body mass index (BMI) Body weight Oxygen saturation Oxygen saturation in Arterial blood by Pulse oximetry Heart rate Systolic blood pressure Diastolic blood pressure Provider Name and Address Organization Details Last Updated DateTime 4 154.94 cm 34.6 kg/m2 08620.4 g 98 % 98 % 86 /min 122 mm[Hg] 78 mm[Hg] Gisel Poon [facility] 4 14:46:39 Date Recorded Body height Body mass index (BMI) Body weight Oxygen saturation Oxygen saturation in Arterial blood by Pulse oximetry Heart rate Systolic blood pressure Diastolic blood pressure Provider Name and Address Organization Details Last Updated DateTime 5 154.94 cm 33.1 kg/m2 50789.6 6 g 98 % 98 % 85 /min 122 mm[Hg] 68 mm[Hg] Rosita Snowden [facility] 5 15:19:39 Date Recorded Body height Body mass index (BMI) Body weight Respiratory rate Heart rate Oxygen saturation Oxygen saturation in Arterial blood by Pulse oximetry Systolic blood pressure Diastolic blood pressure Provider Name and Address Organization Details Last Updated DateTime 4 154.94 cm 34 kg/m2 70039.6 3 g 16 /min 88 /min 100 % 100 % 122 mm[Hg] 80 mm[Hg] Leda Fadi [facility] 4 16:03:18 Date Recorded Body height Body mass index (BMI) Body weight Respiratory rate Oxygen saturation Oxygen saturation in Arterial blood by Pulse oximetry Heart rate Systolic blood pressure Diastolic blood pressure Provider Name and Address Organization Details Last Updated DateTime 4 154.94 cm 36 kg/m2 70156.6 5 g 16 /min 100 % 100 % 94 /min 132 mm[Hg] 86 mm[Hg] Lisa Kevon [facility] 4 12:15:55 Date Recorded Body height Body mass index (BMI) Body weight Oxygen saturation Oxygen saturation in Arterial blood by Pulse oximetry Heart rate Systolic blood pressure Diastolic blood pressure Provider Name and Address Organization Details Last Updated DateTime 4 154.94 cm 35 kg/m2 05264.0 3 g 92 % 92 % 90 /min 124 mm[Hg] 82 mm[Hg] Linnette Kam [facility] 4 15:30:49 Social History Question Answer Notes LastModified by Organizat ion Details LastModified Time Tobacco Smoking Status [facility] 10:08:44 What Was The Date Of Your Most Recent Tobacco Screening? 04/13/2024 [email or web address] Information not available 04/20/2024 How Many Children Do You Have? 1 Information not available 05/07/2021 What Is Your Relationship Status? [email or web address] Information not available 05/07/2021 Has Tobacco Cessation Counseling Been Provided? No Information not available 04/30/2021 Have You Recently Traveled Abroad? No [email or web address] Information not available 05/07/2021 Sex: Female Functional Status Question Answer Note LastModified by Organizat ion Details LastModified Time Do you use any illicit or recreational drugs? No Information not available 04/30/2021 Do you or have you ever used any other forms of tobacco or nicotine? No Information not available 04/30/2021 What is your level of alcohol consumption? Occasional Information not available 04/30/2021 Mental Status None recorded. Family History Relationship Description Onset Age of this Age Resolved Age Notes LastModified by Organization Details LastModified Time Maternal Grandmother Family history of malignant neoplasm [email or web address] Not available 04/07 15:06:09 Paternal Grandfather Heart disease [email or web address] Not available 05/21 08:53:52 Mother Heart disease [email or web address] Not available 05/21 08:54:13 Maternal Aunt Family history of malignant neoplasm [email or web address] Not available 04/07 15:06:09 Father Heart disease [email or web address] Not available 04/07 15:06:09 Medical History Condition Response Allergies/Hayfever N Atrial Fibrillation N Chronic Obstructive Pulmonary Disease N Blood Transfusion Y Emphysema N Hospitalizations Y Black Lung N Alzheimer's N COPD N Sarcoidosis N Pneumonia Y Pulmonary Hypertension N Anemia Y Ulcers N Heart Attack (NC) N Deep Vein Thrombosis N Sinusitis Y Pulmonary Fibrosis N Diabetes N Bleeding Disorder N Arthritis Y Seizures/Epilepsy N Tuberculosis N AIDS/HIV N Alpha 1 Antitrypsin Deficiency N Congestive Heart Failure (CHF) Y Acid Reflux (GERD) Y Cancer N Stroke N Asthma N Sleep Apnea N Thyroid Disorder N GERD/Reflux Y High Cholesterol N Aneurysm N Hepatitis N Cirrhosis N Heart Disease Y Neuropathy Y Pulmonary Embolism N Hypertension N Osteoporosis N Gynecological HistoryNo gynecological history recorded. Obstetrics History GPAL:G 0 P 0 0 0 0 Immunizations Vaccine Type Date Status Note Provider Nam e and Address Organization Details Recorded Time COVID-19 vaccine, vector-nr, rS-Ad26, PF, 0.5 mL 05/15/2020 [facility]2021 08:52:59 COVID-19, mRNA, LNP-S, PF, 100 mcg/0.5mL dose or 50 mcg/0.25mL dose 01/10/2021 completed Monedl BoydDavid [facility] 05/21/2021 08:53:15 Past Encounters Encounter ID Performer Location Encounter Start Date Encounter Closed Date Diagnosis/Indication Diagnosis SNOMED-CT Code Diagnosis ICD10 Code Diagnosis Note [id number] PARVEZ DELIA SANTILLAN MD [facility] [address] [place] [address] 04/30/2021 09:56:45 04/30/2021 12:14:58 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 Clinically , no pulmonary involvemen t noted. In particular no features of interstiti al lung disease noted.No evidence of pulmonary hypertensi on noted. Has predominan t involvemen t of musculoske letal system with mild early changes in the hand specially distal to the MCP joints with fullness of the skin. Mild associated edema and sclerodact yly along with telangiect stewart on the hand and face.Posit shani chronic gastroesop hageal reflux disease post fundoplica tion. Positive PENNY at 1: 1280 with centromere pattern. She has normal renal function. Normal liver function.N ormal thyroid function. Modestly elevated ESR at 46 mm/h, negative CRP. Negative rheumatoid factor. Nailfold capillary examinatio n is normal without dilated capillary loops or dropouts. Today we talked about limited scleroderm a and the potential associatio n of it with interstiti al lung disease and pulmonary arterial hypertensi on. Even though clinically she does not have any cardiac or pulmonary involvemen t, I would like her to have a baseline cardiology evaluation with a baseline surface echo as well as pulmonary evaluation with a baseline PFTs and CT scan chest.I have also suggested her to obtain a chest x-ray along with anticentro mere as well as anti-SCL 70 antibody levels.Ant i-RNA polymerase 3 antibodies obtained to assess for any future risk for pulmonary malignancy . In terms of musculoske letal symptoms, suggested trial of hydroxychl oroquine at 200 mg once a day with a baseline eye examinatio n.Strongly encouraged to maintain the PPIs to prevent worsening reflux or Silveira's esophagus. Discussed anti-infla mmatory diet. Follow-up with me in 3 months. Malaise and fatigue [id number] R53.81 R53.83 In terms of chronic malaise and fatigue, I would suggest to be screened for obstructiv e sleep apnea. She will follow this with her primary care physician. [id number] FLORES PLASCENCIA PA-C [facility] [address] [place] [address] ,[address] [place] [address] 05/07/2021 13:51:00 05/11/2021 09:16:05 Left bundle branch block [id number] I44.7 Chronic with reported negative cardiac work-up Limited sy [facility] sclerosis [id number] M34.9 Patient will get a baseline echo due to potential associatio n of pulmonary arterial hypertensi on with systemic scleroderm a. She has a schedule appointmen t for baseline pulmonary evaluation as well. [id number] YIN ECKERT MD [facility] [address] [place] [address] 05/07/2021 16:08:52 05/11/2021 07:14:16 Pulmonary hypertension [id number] I27.20 [id number] MISBAH GOOD MD PULMONARY [address] [facility], [address] [place] [address] 05/21/2021 08:32:41 05/21/2021 10:00:38 Systemic sclerosis [id number] M34.9 Newly diagnosed with scleroderm a. She has longstandi ng reflux and esophagiti s issues. At baseline, I see no evidence of lung involvemen t.Baseline PFTs are normal, but are heading towards a mild restrictio n which I suspect is more due to body habitus. FVC 2.49 (79%) FEV1 2.21 (86%) ratio 89% TLC 87% ERV 33% DLCO 93%Chest x-ray with clear lung sánchez. Clear pulmonary examBaseli ne RVSP 29. Given that she does have a history of reflux and esophagiti s, this can also lead to bronchiect asis, hypersensi tive pneumoniti s and airway scarring. Given this confusing factor, I do think she warrants having a baseline HRCT. Return to clinic in 6 months with repeat pulmonary function testing. Gastroesop hageal reflux disease [id number] K21.00 [id number] PARVEZ SANTILLAN MD [facility] [address] [place] [address] 06/18/2021 15:47:05 06/18/2021 16:59:14 Limited systemic sclerosis [id number] M34.9 46-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 Positive anticentro mere antibody dated 04/30/2021 greater than 8.0 AI. Negative anti-SCL 70 antibody. Negative RNA polymerase [address] chest 06/05/2021 without any evidence of interstiti al lung disease. Echocardio gram 05/07/2021 without any evidence of pulmonary arterial hypertensi on. Normal RV and normal LV function. PFTs with DLCO 93% forced vital capacity 79%. In summary, at present no evidence of interstiti al lung disease or pulmonary arterial hypertensi on. Predominan tly musculoske letal symptoms. Further significan t gastroesop hageal reflux disease followed by local gastroente rologist and is currently on Protonix 40 mg once a day I reviewed all the recent studies and reassured her about the absence of target organ involvemen t. Certainly I am concerned about her chronic gastroesop hageal reflux disease. She would like to get an opinion from a tertiary care center which sounds very reasonable . I will get GI consultati on from [facility]. In the meantime she will maintain the hydroxychl oroquine at 200 mg once a day and continue with the current dose of Protonix at 40 mg once a day. I will reassess her in December 2021. She will continue to follow with pulmonary medicine for repeat PFTs in fall 2021. Repeat high-resol ution CT in 2 years and echocardio gram in 5 years. Gastro-eso phageal reflux disease with esophagitis [id number] K21.00 Chronic secondary to limited scleroderm a. Currently on Protonix. Discussed concerns about potential Silveira's esophagus. She has requested a consultati on from a tertiary care center. We will try to get [facility] gastroente rology to see her. [id number] MISBAH GOOD MD PULMONARY [address], [address] [place] [address] 12/23/2021 09:04:58 12/23/2021 10:36:04 Systemic sclerosis [id number] M34.9 Newly diagnosed with scleroderm a. She has longstandi ng reflux and esophagiti s issues. At baseline, I see no evidence of lung involvemen t.Baseline PFTs are normal, but are heading towards a mild restrictio n which I suspect is more due to body habitus. FVC 2.49 (79%) FEV1 2.21 (86%) ratio 89% TLC 87% ERV 33% DLCO 93%Chest x-ray with clear lung sánchez. Clear pulmonary examBaseli ne RVSP 29.HRCT with no evidence of ILD.------ 12/2021: FVC 2.53 (80%) FEV1 2.26 (89%) ratio 89% TLC 85% DLCO 85%PFTs are normal. HRCT is normal. No evidence of scleroderm a affecting her lungs. Continue surveillan ce pulmonary function testing 1 year. 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 Positive anticentro mere antibody dated 04/30/2021 greater than 8.0 AI. Negative anti-SCL 70 antibody. Negative RNA polymerase [address] chest 06/05/2021 without any evidence of interstiti al lung disease. Echocardio gram 05/07/2021 without any evidence of pulmonary arterial hypertensi on. Normal RV and normal LV function. PFTs with DLCO 93% forced vital capacity 79%. Both cardiac and pulmonary evaluation s were unremarkab le. Biggest concern is gastroesop hageal reflux disease for which she is seen by tanner dickens at the [facility]. She has had evaluation at the [facility] in the past. Currently on Protonix and famotidine . Still symptomati c. Suggested to consider Dexilant in place of Protonix which she will review with the tanner hanseny at [facility]. Also reminded to avoid all NSAIDs. I reviewed all the recent studies and reassured her about the absence of target organ involvemen t. In the meantime she will maintain the hydroxychl oroquine at 200 mg once a day and continue with the current dose of Protonix at 40 mg once a day. I will reassess her in 6 months She will maintain her cardiology and pulmonary evaluation as planned. Gastro-eso phageal reflux disease with esophagitis [id number] K21.00 Chronic gastroesop hageal reflux disease secondary to limited scleroderm a. Currently on Protonix in combinatio n with famotidine . Has had evaluation at the [facility] gastroente rology and most recently at [facility]. So far the work-up is negative for Silveira's esophagus. However the current medication s are not helping her symptoms. We talked about usual care including keeping her head elevated to more than 30 degrees at bedtime. Also suggested to avoid greasy and spicy food. Discussed Dexilant in place of Protonix which she will follow-up with her gastroente rology at [facility].Michael shepard is taking Advil and I suggested her to avoid all NSAIDs. I wrote a prescripti on for tramadol to help with her pains. Chronic pain syndrome 37 [id number] G89.4 Chronic pain syndrome diagnosis fibromyalg ia at the [facility]. Suggested Elavil. I am a bit concerned about the use of anticholin ergic medication especially with her gastropare sis and reflux disease. Nonpharmac ologic modalities including relaxation exercises neelam chi and yoga reviewed. She can maintain tramadol for the pain management . We also discussed the role of Cymbalta. [id number] MISBAH SLATER MD ECHO VASCULAR LAB [address] [place] [address] 05/20/2022 13:12:07 05/21/2022 04:47:25 Left bundle branch block [id number] I44.7 [id number] MISBAH SLATER MD CARDIOLOG Y EAST [address] [place] [address] 05/20/2022 13:13:10 05/20/2022 14:51:02 Obesity [id number] E66.9 patient's BMI today was = 33.3; recommend weight loss to achieve a BMI of <=25. Left bundl e branch block [id number] I44.7 Patient has h/o chronic LBBB.EKG today - normal sinus rhythm, rate=86, normal axis, LBBB, QTc= 433 ms. Chest pain [id number] R07. 9 Based on history and physical exam, the patient's chest pain is of unknown etiology. Patient with family history of CAD. Echocardio gram today revealed LVEF=50-55 % and no significan t valvular abnormalit ies. Recommenda tion:Nafisa can nuclear stress testing is recommende d in the near future to evaluate this issue. Limited sy stemic sclerosis [id number] M34.[address] Delia Santillan ( Rheumatolo gy) and at the [facility] for this issue. A yearly echocardio gram to assess RV size, RV systolic function, and to estimate RVSP is recommende d. [id number] MISBAH SLATER MD HEART STATION [address] [place] [address] 06/04/2022 12:22:45 06/07/2022 08:32:25 [id number] MISBAH SLATER MD CARDIOLOG Y SB [address] [place] [address] 06/09/2022 14:57:30 06/10/2022 04:14:19 Obesity 107949519 E66.9 patient's BMI today was = 33.7; recommend weight loss for beneficial effects on health. Chest pain [id number] R07. 9 Based on history and physical exam, the patient's chest pain is of unknown etiology. Patient with family history of CAD. Echocardio gram at last visit revealed LVEF=50-55 % and no significan t valvular abnormalit ies. Her recent Lexiscan nuclear stress test revealed likely normal myocardial perfusion, normal LVEF. No additional CV tests are recommende d at this time. Left bundl e branch block [id number] I44.7 Patient has h/o chronic LBBB. Palpitations [id number] R0 0.2 One recent episode of palpitatio ns that lasted one hour, occurred as patient was lying down/getti ng ready for bed, and occurred after a day of feeling very fatigued. She denied syncope, SOA/AVILES, chest pain, or dizziness during the palpitatio ns. I advised her to call the office if palpitatio ns are recurrent, and a 48 hour Holter monitor would likely be ordered. Limited sy stemic sclerosis 150843560 M34.[address] Delia Santillan ( Rheumatolo gy) and at the [facility] for this issue. Recommenda tion:An Echocardio gram q 1-2 years to assess RV size, RV systolic function, and to estimate RVSP is recommende d. [id number] PARVEZ SANTILLAN MD RHEUMATOL OGY [address] [place] [address] 12/09/2022 15:54:25 12/11/2022 04:24:11 Limited systemic sclerosis [id number] M34.9 47-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 Positive anticentro mere antibody dated 04/30/2021 greater than 8.0 AI. Negative anti-SCL 70 antibody. Negative RNA polymerase [address] chest 06/05/2021 without any evidence of interstiti al lung disease. Echocardio gram 05/07/2021 without any evidence of pulmonary arterial hypertensi on. Normal RV and normal LV function. PFTs with DLCO 93% forced vital capacity 79%. Both cardiac and pulmonary evaluation s were unremarkab le. Biggest concern is gastroesop hageal reflux disease along with esophageal motility disorder. Has had evaluation at the [facility] and later at [facility] which confirmed ineffectiv e esophageal motility. Now scheduled to follow-up with tanner dickens at [facility] . In the meantime she will maintain the hydroxychl oroquine at 200 mg once a day and continue with the current dose of Protonix at 40 mg twice daily. Currently on Amitriptyl ine 10 mg q daily, she can reach out to me if she needs refills. Suggest she avoid immunosupp ressive drugs. I will reassess her in 6 months She will maintain her cardiology , GI and pulmonary evaluation as planned. Her next pulmonary evaluation is on 12/24/2022 . I will also schedule for repeat CT chest high-resol ution to follow-up on pulmonary status at least once a year. Continue with PFTs every 6 months. Echocardio gram every 2 years. Gastro-eso phageal reflux disease with esophagitis [id number] K21.00 Chronic gastroesop hageal reflux disease secondary to limited scleroderm a. Currently on Protonix in combinatio n with famotidine . Has had evaluation at the [facility] gastroente rology and most recently at [facility]. Negative work-up for Silveira's esophagus. The motility study at [facility] dated 07/30/2022 confirmed ineffectiv e esophageal motility consistent with scleroderm a. She is now scheduled to see motility specialist in [facility]. We talked about usual care including keeping her head elevated to more than 30 degrees at bedtime. Also suggested to avoid greasy and spicy food. She will maintain Protonix twice a day and she will follow-up with her gastroente rology at [facility]. I suggested her to avoid all NSAIDs. She can use tylenol extra strength. Chronic pain syndrome 37 [id number] G89.4 Chronic pain syndrome diagnosis fibromyalg ia at the [facility]. Suggested Elavil. I am a bit concerned about the use of anticholin ergic medication especially with her gastropare sis and reflux disease. Nonpharmac ologic modalities including relaxation exercises neelam chi and yoga reviewed. Try to reduce stress. Suggested she look into local massaging and moist heat to treat her Bilateral thumb trigger finger. She can maintain tramadol for the pain management . We also discussed the role of Cymbalta. We will continue to watch her clinically . Certainly the dose of the amitriptyl ine can be adjusted based on her tolerance benefit. 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 Latest CT scan of the chest was approximat david a year ago and did not show any significan t abnormalit ies. I certainly would have expected to see at least a diffusion capacity abnormalit y if there indeed was progressiv e interstiti al lung disease and/or pulmonary hypertensi ve disease related to scleroderm a. Favor continuati on of current immunosupp ressive regimen as per rheumatolo gy, I plan to see her within 12 months with now a repeat CT scan of the chest [id number] PARVEZ DELIA SANTILLAN MD RHEUMATOL OGY [address] [place] [address] 07/18/2023 15:55:52 07/20/2023 04:06:21 Limited systemic sclerosis [id number] M34.9 48-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 Positive anticentro mere antibody dated 04/30/2021 greater than 8.0 AI. Negative anti-SCL 70 antibody. Negative RNA polymerase [address] chest 06/05/2021 without any evidence of interstiti al lung disease. Echocardio gram 05/07/2021 without any evidence of pulmonary arterial hypertensi on. Normal RV and normal LV function. PFTs with DLCO 93% forced vital capacity 79%. Both cardiac and pulmonary evaluation s were unremarkab le. She had gastroesop hageal reflux disease along with esophageal motility disorder, gastropare sis. Currently being evaluated at [facility] tertiary care center. She has had evaluation at [facility] and also at [facility] . She was not very satisfied with [facility] workup or evaluation s. For now, she will maintain the hydroxychl oroquine at 200 mg once a day and continue with the current dose of Dexilant 60 mg daily. She will maintain amitriptyl ine at 50 mg p.o. nightly for chronic pain/fibro myalgia syndrome. During this upcoming [facility] evaluation she is scheduled for rheumatolo gy as well as cardiology evaluation . Recent pulmonary evaluation at [facility] reviewed, DLCO as of 03/11/2023 within normal limits. Follow up in 6 months. Gastro-eso phageal reflux disease with esophagitis [id number] K21.00 Chronic gastroesop hageal reflux disease secondary to limited scleroderm a. She is now on Dexilant 60 mg once a day. She has failed the Protonix. Has had evaluation s at the [facility], [facility] and [facility] . Further history is positive for gastropare sis. Negative work-up for Silveira's esophagus. The motility study at [facility] dated 07/30/2022 confirmed ineffectiv e esophageal motility consistent with scleroderm a. Scheduled for repeat upper scope with [facility] in August 2023. I suggested her to avoid all NSAIDs. She can use tylenol extra strength. Chronic pain syndrome 37 [id number] G89.4 Chronic pain syndrome diagnosis fibromyalg ia at the [facility]. She is now on amitriptyl ine 50 mg at bedtime which seems to be helping her symptoms quite well. Nonpharmac ologic modalities including relaxation exercises neelam chi and yoga reviewed. Try to reduce stress. We will continue to watch her clinically . Certainly the dose of the amitriptyl ine can be adjusted based on her tolerance benefit. Xerostomia 56023939 R68. 2 She has xerostomia likely multifacto rial further contribute d by amitriptyl ine suggested symptomati c management with pilocarpin e. I also obtained the Sjogren's profile. She will initiate pilocarpin e 5 mg every 8 hours Abnormal weight gain 161 683774 R63.5 He has gained some weight in the last few months.Sug gested to obtain routine metabolic panel to look at the reversible causes. She will maintain her strict dietary program. [id number] MISBAH SLATER MD CARDIOLOG Y [address] [place] [address] 09/01/2023 12:05:38 09/01/2023 13:12:53 Left bundle branch block [id number] I44.7 Patient has h/o chronic LBBB. EKG (09/01/23) - normal sinus rhythm, rate= 94, normal axis, IVCD-likel y left bundle branch block, QTc= 445 ms, no significan t ST abnormalit ies. Cardiomyopathy 69377714 I42.9 Recent echocardio gram at [facility] documented LVEF=35-40 % with several RWMA and diastolic dysfunctio n. Estimated PA systolic pressure is 35mmHg. Cardiomyop athy is of unknown origin. I recommend left right heart catheteriz ations in the near future to further explore etiologies for cardiomyop athy. If her left ventricula r ejection fraction is confirmed to be less than 40%, she would likely need to be started on low-dose JAGJIT inhibitor or ARB, low-dose beta-block er, and several other medication classes (if heart rate, blood pressure, renal function tolerate). Cardiac MRI (11/11/23) - report reviewed:L VEF=40.1%, RVEF=40.3% , normal ventricula r sizes, normal atrial sizes, no valve abnormalit ies, no scarring or fibrosis. Dyspnea on exertion 6084 5006 R06.09 Patient with history of scleroderm a, this may be contributi ng to dyspnea exertion.Franklin austin said that, patient reports dyspnea exertion has been worsening and recent PFTs were unchanged. She follows with Dr. Carcamo at [facility] in clinic pulmonary and is neck scheduled undergo CT of the chest in the latter part of this year. Given that patient recently reports worsening chest pain, dyspnea exertion, and now has a documented decline in her left ventricula r ejection fraction, I recommend additional cardiovasc ular testing. Recommenda tions:1) coronary angiograph y and right heart catheteriz ation2) preprocedu re labs: CMP, CBC Chest pain [id number] R07. 9 Since last visit, patient reports worsening mid chest pain frequency and duration, frequent epigastric pain especially at night, dyspnea on exertion. Recent echocardio gram (as listed above) documented decline in her measured left ventricula r ejection fraction (from 50-55% last year to 35-40% this year).Claudine ent with family history of CAD. Echocardio gram (2022) revealed LVEF=50-55 % and no significan t valvular abnormalit ies. Lexiscan nuclear stress test (2022) revealed likely normal myocardial perfusion, normal LVEF. No additional CV tests are recommende d at this time. Recommenda tions:1) coronary angiograph y and right heart catheteriz ation2) preprocedu re labs: CMP, CBC [id number] MISBAH SLATER MD CARDIOLOG Y [facility] [address] [address] 12/05/2023 15:03:04 12/06/2023 10:59:36 Obesity 985344958 E66.9 patient's BMI today was = 35.0; recommend weight loss for beneficial effects on health. Left bundl e branch block [id number] I44.7 Patient has h/o chronic LBBB. EKG (09/01/23) - normal sinus rhythm, rate= 94, normal axis, IVCD-likel y left bundle branch block, QTc= 445 ms, no significan t ST abnormalit ies. Cardiomyopathy 76354726 I42.9 Recent echocardio gram at [facility] documented LVEF=35-40 % with several RWMA and diastolic dysfunctio n. Estimated PA systolic pressure is 35mmHg. Cardiomyop athy is of unknown origin. Patient is s/p RHC and coronary angiogram in 09/27. No angiograph ic CAD seen. Pulmonary Artery pressure = 29/17 mmHg (mean=22 mmHg). We discussed GDMT for cardiomyop athy: BB, ACEI, ARB, Entresto, Jardiance, Aldactone. After this discussion , we both agreed to start her on low-dose JAGJIT inhibitor (Lisinopri l 2.5 mg po qd). Cardiac MRI (11/11/23) - report reviewed with patient today:LVEF =40.1%, RVEF=40.3% , normal ventricula r sizes, normal atrial sizes, no valve abnormalit ies, no scarring or fibrosis. Chest pain 81833036 R07. 9 Since last visit, patient reports worsening mid chest pain frequency and duration, frequent epigastric pain especially at night, dyspnea on exertion. Recent echocardio gram (as listed above) documented decline in her measured left ventricula r ejection fraction (from 50-55% last year to 35-40% this year).Claudine ent with family history of CAD. Echocardio gram (2022) revealed LVEF=50-55 % and no significan t valvular abnormalit ies. Lexiscan nuclear stress test (2022) revealed likely normal myocardial perfusion, normal LVEF. Coronary Angiograph y 09/27 - no CAD. Patient with recent ER visit (10/28) - and was placed on Colchicine presumably for pericardit is. Her chest pain has been signficant ly improved on Colchicine . Palpitations 01399413 R0 0.2 She reports a recent increase in palpitatio ns, dizziness/ lightheade dness, and dyspnea. RECOMMENDA TION: 5 day Holter monitoring -Consider low dose beta reyes after monitoring [id number] CHAYA CARCAMO-ELISEO SCHMITZ MD PULMONARY [address], [address] [place] [address] 04/20/2024 15:05:16 04/20/2024 16:27:24 Localized scleroderma 146281573 L94.0 Scleroderm a without any parenchyma l pulmonary manifestat ions with entirely normal lung functions. Latest CT scan of the chest does not show any evidence of ILD and shows an insignific ant punctuate lung nodule. Favor continuati on of current immunosupp ressive regimen as per rheumatolo gy, I plan to see her within 12 months with a repeat CT scan of the chest Health Concerns Section Related Observation LastModified by Organization Detai ls LastModified Time None Recorded Concern Status LastModified by Organization Details LastModified Time None Recorded Advance Directives Directive None Recorded Payers Insurance Date Sequence Insurance Name Policy Number Policy Shen Covered Member ID Shen Member ID Guarantor Name 08/20/2024 PAYMENT PLAN Melinda Aponte 04/19/2024 1 [employer] [id number] Melinda Aponte [id number] Melinda Aponte 08/20/2024 1 [place] [id number] Melinda Aponte [id number] Melinda Aponte 03/11/2023 1 [place] [id number] Devonte Aponte [id number] Melinda Aponte Notes Date Note Type Note Provider Name and Address Organization Details Recorded Time 03/11/2023 text/html Patient comes in for follow-up of scleroderma. She is currently on hydroxychloroquine as per rheumatology. She is doing very well without significant shortness of breath, cough, sputum production or hemoptysis. She does not have any significant activity intolerance secondary to respiratory complaints. Scleroderma symptoms are currently well-controlled on current immunosuppressive therapy although she continues to complain of Raynaud's particularly during the winter months. She does not have worsening reflux disease and denies any hematemesis, melena or hematochezia. Repeat pulmonary function tests are entirely unremarkable CHAYA BRUNER MD [address] [place], [address], [facility] 03/11/2023 15:12:45 07/18/2023 text/html 48-year-old seen today as a follow-up for limited scleroderma. 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 Significant chronic gastroesophageal reflux disease and gastroparesis. Has had evaluation with [facility] gastroenterology and later saw gastroenterology at [facility]. She also had evaluation with rheumatology at [facility].She is on Dexilant 60 mg daily off the Protonix. She is also on amitriptyline 50 mg at bedtime which seems to have helped the fibromyalgia pains. Had a motility study at [facility] dated 07/30/2022 which confirmed ineffective esophageal motility consistent with scleroderma. She does not have any history of interstitial lung disease or pulmonary arterial hypertension. She is on maintenance hydroxychloroquine 200 mg once a day. Interval dysphagia followed by [facility], was not very satisfied with [facility] and is not scheduled to follow-up with [facility] in August 2023. PARVEZ SANTILLAN MD [facility] [place], [address], [facility] 07/19/2023 08:08:48 09/01/2023 text/html Ms. Aponte is a alcides saxena, 48 y.o. patient with a h/o Scleroderma who was last seen in the office on 06/09/22 for chest pain and LBBB. She was recently evaluated at [facility] for her scleroderma diagnosis. An echocardiogram was performed at that time. It documented a decline in her left ventricular ejection fraction from a baseline of 50-55% per most recent echocardiogram last year at [facility] to the left trickle ejection fraction of 35% with some regional wall motion abnormalities. Patient reports worsening chest pain, dyspnea exertion, lightheadedness. She says the chest pain occurs frequently, is located in her mid to lower chest, occurs typically at rest, and can be associated with shortness of breath. She also has frequent nocturnal epigastric pain. Lastly, she reports frequent episodes of lightheadedness and near syncope but denies syncope. With this new information, patient requested a follow-up visit today. MISBAH SLATER MD [address] [place], [address], [facility] 12/02/2023 09:28:38 12/05/2023 text/html Ms. Aponte is a alcides saxena, 48 y.o. patient with a h/o Scleroderma who was last seen in the office on 09/01/23 for chest pain and LBBB. To review:She was recently evaluated at [facility] for her scleroderma diagnosis. An echocardiogram was performed at that time. It documented a decline in her left ventricular ejection fraction from a baseline of 50-55% per most recent echocardiogram last year at [facility] to the left ventricular ejection fraction of 35% with some regional wall motion abnormalities.Cardiac MRI (11/11/23): LVEF=40.1%, no fibrosis or scarring. Patient reports occasional palpitations and dizziness. Chest pain & abdominal pain prompted an ER visit at [facility]. Patient was started on colchicine and this has significantly improved the chest pain. Patient returns to the clinic today for a scheduled follow-up visit. MISBAH SLATER MD [facility] [place], [address], [facility] 12/05/2023 18:45:00 04/20/2024 text/html Patient comes in for follow-up of scleroderma. She is currently on hydroxychloroquine as per rheumatology. She is doing very well without significant shortness of breath, cough, sputum production or hemoptysis. Scleroderma symptoms are currently reasonable controlled on current immunosuppressive therapy although she continues to complain of Raynaud's particularly during the winter months. She does not have worsening reflux disease and denies any hematemesis, melena or hematochezia. CT chest does not show ILD and is only consistent with a minimal punctuate nodule of unlikely significance. 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
--- OUTSIDE RECORDS SUMMARY | 2024-08-27 11:26 | XMS_ITS | Encounter Summary ---
Author Organization [facility] [employer] Address [address] [place] [address] Care Team Providers Care Orange Picking Supervisor Name Role Phone Unavailable Primary Care Provider Unavailabl e Encounter Details Date Type Department Care Team (Late st Contact Info) Description 03/26/2021 Transcribed Document [facility] [place] [address] ProviderLeyda MD [address] [place] [id number] Social History Tobacco Use Types Packs/Day Years Used Date Smoking Tobacco: Never Assessed Comments Unknown Sex and Gender Information Value Date Recorded Sex Assigned at Not on file Legal Sex Female 6:21 PM CDT Gender Identity Not on file Sexual Orientation Not on file documented as of this encounter Miscellaneous Notes * Cerner Conversion Note - Leyda ProviderMD - 03/26/2021 11:01 AM [facility] Main OR PACU Summary Primary Physician: MARY TOMAS MD-SUR Finalized Date/Time: 03/26/21 12:51:40 Pt. Name: MELINDA APONTE /Sex: 1975 Female Med Rec #: [id number] Physician: MARY TOMAS MD-JIMY Financial #: [id number] Pt. Type: O Room/Bed: Admit/Disch: 03/26/21 08:37:00 - Institution: [facility] Main OR PACU I Case Times Entry 1 In PACU I 03/26/21 11:50:00 Ready for PACU 03/26/21 12:51:00 Discharge Discharge from PACU 03/26/21 12:51:00 I Last Modified By: YAIMA CHAPIN RN 03/26/21 12:51:07 Finalized By: YAIMA CHAPIN RN Document Signatures Signed By: YAIMA CHAPIN RN 03/26/21 12:51 Electronically signed by Serafin [facility] Conversion Roaster Helper Cerner at 06/22/2022 9:25 AM CDT documented in this encounter Plan of Treatment Not on file documented as of this encounter Visit Diagnoses Not on filedocumented in this encounter
--- OUTSIDE RECORDS SUMMARY | 2024-08-27 11:26 | XMS_ITS | Patient Health Record ---
Author Organization [facility] Address [address] [place] [address] Care Team Providers Care Web Content Editor Name Role Phone Linnette Nroton Unavailable [phone] Allergies Allergen (clinical drug ingredient) Drug/Non Drug Allergy documented on EMR Reaction Allergy Type Onset Date Status lamotrigine LAMICTAL (uncoded) Unspecified Allergy 014 Active lithium citrate LITHIUM (uncoded) Unspecified Allergy 07/2015 Active Reason For Referral No Information Medications Medication SIG (Take, Route, Frequency, Duration) Notes Start Date End Date Status Amitriptyline HCl 10 MG Tablet 1 tablet at bedtime Orally Once a day Active Protonix Active Hydroxychloroquine Sulfate Active Estradiol 10 MCG Tablet 1 tablet Vaginal twice weekly; Duration: 84 days 12/06/2022 Active Estradiol 2 MG Tablet 1 tablet Orally On ce a day; Duration: 90 days Active Social History Social History Sexual History: Social Info Question Answer Notes Sexual History Had sex in the past 12 months (vaginal, oral, or anal)? Yes Drugs/Alcohol: Social Info Question Answer Notes Drugs Have you used drugs other than those for medical reasons in the past 12 months? No Alcohol Screen Did you have a drink containing alcohol in the past year? Yes How often did you have a drink containing alcohol in the past year? 2 to 4 times a month (2 points) Points 2 Interpretation Negative Problems Problem Type SNOMED Code ICD Code Onset Dates Problem Status W/U Status Risk Notes Problem Cervical smear, as part of routine gynecological examination (Z01.419) 9 Active confirmed Annual without abnormal findings Encounters Encounter Location Date Provider Diagnosis [facility] [address] [place] [address] 09/23/2023 Linnette Norton Firer Retort exam without abnormal findings Z01.419 Assessments Encounter Date Diagnosis (ICD Code) Assessment Notes Treatment Notes Treatment Clinical Notes Section Notes 09/23/2023 Firer Retort exam without abnormal findings (ICD-10 - Z01.419) Plan Of Treatment No Information Insurance Providers Payer Name Payer Address Payer Phone Subscriber Number Group Number Insured Name Patient Relationship to Insured Coverage Start Date Coverage End Date [place] [employer] [address] [place] [address] [id number] Melinda Aponte Self - patient is the insured Medical (General) History Medical History History ICD Code Acid Reflux Anxiety / Depression Blood transfusions Uterine fibroid Irritable Bowel Fatigue Insomnia Hernia Surgical History Surgery Date(Month/Year) vestibulectomy 2005 breast lift/augmentation TRH hernia repair 09/2018 Hospitalization History Reason Date(Month/Year) c/s
--- OUTSIDE RECORDS SUMMARY | 2024-08-27 11:26 | XMS_ITS | Encounter Summary ---
Author Organization [employer] Address [address] [place] [address] Care Team Providers Care Enterprise Services Manager Name Role Phone Unavailable Primary Care Provider Unavailabl e Encounter Details Date Type Department Care Team (Late st Contact Info) Description 09/30/2018 Transcribed Document [facility] [place] Family Medicine [address] [place] [address] ProviderLeyda MD [address] [place] [id number] Social History Tobacco Use Types Packs/Day Years Used Date Smoking Tobacco: Never Assessed Comments Unknown Sex and Gender Information Value Date Recorded Sex Assigned at Not on file Legal Sex Female 6:21 PM CDT Gender Identity Not on file Sexual Orientation Not on file documented as of this encounter Miscellaneous Notes * Cerner Conversion Note - Leyda Clark MD - 09/30/2018 1:42 PM CDT [place] [id number] FADI MELINDA ELLISJAHAIRA :1975 Visit Time:09/29/2018 Your Visit Summary Your Care Team Admitting Physician - SAMAN THOMPSON MD-JIMY Attending Physician - SAMAN THOMPSON MD-JIMY Primary Care Physician - GONZALES AMADOR (REF)MD-INT Referring Physician - SAMAN THOMPSON MD-SUR Your Diagnosis Gastro-esophageal reflux disease without esophagitis, Gastro-esophageal reflux disease without esophagitis These Are Your Goals to feel better Discharge Vitals Temperature 36.7 ??C Heart Rate (Monitored) 80 Respiratory Rate 16 Blood Pressure 118/62 What to do next Instructions From Your Care Team Discharge Follow Up Instructions: followup [id number] Activity: Discharge Activity: No heavy lifting over 10 lbs Diet: May progress to full liquids and soft diet as tolerated (Cottage cheese, chicken salad, eggs, etc). Make sure foods are wet . Drink at least 64 oz of fluids per day.No carbonated beverages., Discharge Diet: Other (see Special Instructions) Showering/Bathing Instructions: May showerin 48 hrs from surgery Follow-Up Appointments Follow Up with SAMAN THOMPSON MD When Comments appointment has been made. Where: [facility] - PHONE [address] [place] [address]- Follow Up with Follow up with primary care provider When Within 1 week Medications What How Much When Instructions Next Dose estradiol 2 Milligram(s) Oral Every Day Take your medications [...] Please dispose of unused and medications per your retail pharmacy guidance. Allergies LaMICtal (itching) Nickel (rash) Immunizations This Visit No Immunizations Found Education Materials Laparoscopic Inguinal Hernia Repair, Pediatric Laparoscopic inguinal hernia repair is a surgical procedure to repair an inguinal hernia. An inguinal hernia is when a section of your child's intestine pushes through a small opening in the muscles of the lower belly, in the area where the leg meets the lower abdomen (groin). This can happen when a natural opening in the groin muscles fails to close properly. This procedure pushes the tissue back into place and repairs the opening. This procedure may be done as a planned procedure or as an emergency procedure. This procedure is done though one or more small incisions in the abdomen with the help of a thin telescope that has a camera attached to it (laparoscope). What are the risks? Generally, this is a safe procedure. However, problems may occur, including: ??? Infection. ??? Bleeding. ??? Long-term pain and swelling of the scrotum, if your child is a boy. ??? Testicle damage, if your child is a boy. ??? Allergic reactions to medicines. ??? Damage to blood vessels, the bladder, or bowel tissues. ??? Urinary retention. ??? A collection of fluid that builds up under the skin (seroma). What happens before the procedure? Follow instructions from your child's health care provider about eating or drinking restrictions. ??? Ask your child's health care provider about: ? Changing or stopping your child's regular medicines. This is especially important if your child is taking diabetes medicines or blood thinners. ? Taking medicines such as aspirin and ibuprofen. These medicines can thin your child's blood. Do not give your child these medicines before the procedure if your child's health care provider instructs you not to. ??? Ask your child's health care provider how the surgical site will be marked or identified. ??? Your child may be given antibiotic medicine to help prevent infection. What happens during the procedure? To reduce your child's risk of infection: ? Your child's health care team will wash or sanitize their hands. ? Your child's skin will be washed with soap. ??? An IV tube will be inserted into one of your child's veins. ??? Your child will be given a medicine to make him or her fall asleep (general anesthetic). ??? A small incision will be made near your child's belly button (navel) to insert the laparoscope. ??? Before the scope is inserted, carbon dioxide gas will be used to inflate your child's abdomen. This makes it easier for your child's surgeon to see inside the abdomen. ??? Two or more other small incisions may be made to insert laparoscopic operating tools. ??? The laparoscope camera will send images of the inside of your child's abdomen to a television screen in the operating room. ??? Using the scope and the instruments, your child's surgeon will remove any tissue that is poking through the hernia. ??? Your child's surgeon will close the opening of the hernia by stitching together the muscles that surround the hernia. Older children may need a prosthetic mesh or plug to close the opening. ??? The incision may be closed with absorbable stitches (sutures) and adhesive strips. The procedure may vary among health care providers and hospitals. What happens after the procedure? Your child's blood pressure, heart rate, breathing rate, and blood oxygen level will be monitored often until the medicines your child was given have worn off. ??? The IV tube will be removed after your child can drink fluids well. ??? Your child will be encouraged: ? To get up and move. ? To take frequent deep breaths. Contact a health care provider if: ??? Any allergies your child has. ??? All medicines your child is taking, including vitamins, herbs, eye drops, creams, and yyda-dhu-zwplmyw medicines. ??? Previous problems your child or members of your family have had with the use of anesthetics. ??? Any blood disorders your child has. ??? Previous surgeries your child has had. ??? Any medical conditions your child has. This information is not intended to replace advice given to you by your health care provider. Make sure you discuss any questions you have with your health care provider. Document Released: 02/21/2006 Document Revised: 07/29/2016 Document Reviewed: 08/25/2015 [employer] Patient Education ?? 2019 [employer]. acetaminophen and hydrocodone (a SEET a MIN oh fen and genaro droe KOE done) Hycet, Lorcet, Scandia, Verdrocet, Vicodin, Xodol, Zamicet What is the most important information I should know about acetaminophen and hydrocodone? MISUSE OF OPIOID MEDICINE CAN CAUSE ADDICTION, OVERDOSE, OR . Keep the medication in a place where others cannot get to it. An overdose of acetaminophen can damage your liver or cause . Call your doctor at once if you have pain in your upper stomach, loss of appetite, dark urine, or jaundice (yellowing of your skin or eyes). Taking opioid medicine during may cause life-threatening withdrawal symptoms in the . Fatal side effects can occur if you use opioid medicine with alcohol, or with other drugs that cause drowsiness or slow your breathing. Stop taking this medicine and call your doctor right away if you have skin redness or a rash that spreads and causes blistering and peeling. What is acetaminophen and hydrocodone? Hydrocodone is an opioid pain medication, sometimes called a narcotic. Acetaminophen is a less potent pain reliever that increases the effects of hydrocodone. Acetaminophen and hydrocodone is a combination medicine used to relieve moderate to severe pain. Acetaminophen and hydrocodone may also be used for purposes not listed in this medication guide. What should I discuss with my healthcare provider before taking acetaminophen and hydrocodone? You should not use this medicine if you are allergic to acetaminophen or hydrocodone, or if you have: ? severe asthma or breathing problems; or ?? a blockage in your stomach or intestines. Tell your doctor if you have ever had: ? liver disease; ?? a drug or alcohol addiction; ?? kidney disease; ?? a head injury or seizures; ?? urination problems; or ?? problems with your thyroid, pancreas, or gallbladder. If you use opioid medicine while you are , your baby could become dependent on the drug. This can cause life-threatening withdrawal symptoms in the baby after it is born. Babies born dependent on opioids may need medical treatment for several weeks. Do not breast-feed. This medicine can pass into breast milk and cause drowsiness, breathing problems, or in a nursing baby. How should I take acetaminophen and hydrocodone? Follow all directions on your prescription label. Never take this medicine in larger amounts, or for longer than prescribed. An overdose can damage your liver or cause . Tell your doctor if the medicine seems to stop working as well in relieving your pain. Always check your bottle to make sure you have received the correct pills (same brand and type) of medicine prescribed by your doctor. Never share this medicine with another person, especially someone with a history of drug abuse or addiction. MISUSE CAN CAUSE ADDICTION, OVERDOSE, OR . Keep the medicine in a place where others cannot get to it. Selling or giving away acetaminophen and hydrocodone is against the law. Measure liquid medicine carefully. Use the dosing syringe provided, or use a medicine dose-measuring device (not a kitchen spoon). If you need surgery or medical tests, tell the doctor ahead of time that you are using this medicine. You should not stop using this medicine suddenly. Follow your doctor's instructions about tapering your dose. Store at room temperature away from moisture and heat. Keep track of your medicine. You should be aware if anyone is using it improperly or without a prescription. Do not keep leftover opioid medication. Just one dose can cause in someone using this medicine accidentally or improperly. Ask your pharmacist where to locate a drug take-back disposal program. If there is no take-back program, flush the unused medicine down the toilet. What happens if I miss a dose? Since this medicine is used for pain, you are not likely to miss a dose. Skip any missed dose if it is almost time for your next dose. Do not use two doses at one time. What happens if I overdose? Seek emergency medical attention or call the Poison Help line at . An overdose of acetaminophen and hydrocodone can be fatal. The first signs of an acetaminophen overdose include loss of appetite, nausea, vomiting, stomach pain, sweating, and confusion or weakness. Later symptoms may include pain in your upper stomach, dark urine, and yellowing of your skin or the whites of your eyes. Overdose can also cause severe muscle weakness, pinpoint pupils, very slow breathing, extreme drowsiness, or coma. What should I avoid while taking acetaminophen and hydrocodone? Avoid driving or operating machinery until you know how this medicine will affect you. Dizziness or drowsiness can cause falls, accidents, or severe injuries. Do not drink alcohol. Dangerous side effects or could occur. Ask a doctor or pharmacist before using any other medicine that may contain acetaminophen (sometimes abbreviated as APAP). Taking certain medications together can lead to a fatal overdose. What are the possible side effects of acetaminophen and hydrocodone? Get emergency medical help if you have signs of an allergic reaction: hives; difficulty breathing; swelling of your face, lips, tongue, or throat. Opioid medicine can slow or stop your breathing, and may occur. A person caring for you should seek emergency medical attention if you have slow breathing with long pauses, blue colored lips, or if you are hard to wake up. In rare cases, acetaminophen may cause a severe skin reaction that can be fatal. This could occur even if you have taken acetaminophen in the past and had no reaction. Stop taking this medicine and call your doctor right away if you have skin redness or a rash that spreads and causes blistering and peeling. Call your doctor at once if you have: ? noisy breathing, sighing, shallow breathing; ?? a light-headed feeling, like you might pass out; ?? liver problems--nausea, upper stomach pain, tiredness, loss of appetite, dark urine, rl-colored stools, jaundice (yellowing of the skin or eyes); or ?? low cortisol levels-- nausea, vomiting, loss of appetite, dizziness, worsening tiredness or weakness. Seek medical attention right away if you have symptoms of serotonin syndrome, such as: agitation, hallucinations, fever, sweating, shivering, fast heart rate, muscle stiffness, twitching, loss of coordination, nausea, vomiting, or diarrhea. Serious side effects may be more likely in older adults and those who are overweight, malnourished, or debilitated. Long-term use of opioid medication may affect fertility (ability to have children) in men or women. It is not known whether opioid effects on fertility are permanent. Common side effects include: ? dizziness, drowsiness, feeling tired; ?? nausea, vomiting, stomach pain; ?? constipation; or ?? headache. This is not a complete list of side effects and others may occur. Call your doctor for medical advice about side effects. You may report side effects to FDA at 6-055-HMM-2720. What other drugs will affect acetaminophen and hydrocodone? You may have breathing problems or withdrawal symptoms if you start or stop taking certain other medicines. Tell your doctor if you also use an antibiotic, antifungal medication, heart or blood pressure medication, seizure medication, or medicine to treat HIV or hepatitis C. Opioid medication can interact with many other drugs and cause dangerous side effects or . Be sure your doctor knows if you also use: ? cold or allergy medicines, bronchodilator asthma/COPD medication, or a diuretic ('water pill'); ?? medicines for motion sickness, irritable bowel syndrome, or overactive bladder; ?? other narcotic medications--opioid pain medicine or prescription cough medicine; ?? a sedative like Valium--diazepam, alprazolam, lorazepam, Xanax, Klonopin, Versed, and others; ?? drugs that make you sleepy or slow your breathing--a sleeping pill, muscle relaxer, medicine to treat mood disorders or mental illness; ?? drugs that affect serotonin levels in your body--a stimulant, or medicine for depression, Parkinson's disease, migraine headaches, serious infections, or nausea and vomiting. This list is not complete. Other drugs may affect acetaminophen and hydrocodone, including prescription and oxsd-hqt-uddteyu medicines, vitamins, and herbal products. Not all possible interactions are listed here. Where can I get more information? Your doctor or pharmacist can provide more information about acetaminophen and hydrocodone. Remember, keep this and all other medicines out of the reach of children, never share your medicines with others, and use this medication only for the indication prescribed. Every effort has been made to ensure that the information provided by [employer]. [employer]') is accurate, up-to-date, and complete, but no guarantee is made to that effect. Drug information contained herein may be time sensitive. [employer] information has been compiled for use by healthcare practitioners and consumers in the [place] and therefore [employer] does not warrant that uses outside of the [place] are appropriate, unless specifically indicated otherwise. [employer] drug information does not endorse drugs, diagnose patients or recommend therapy. [employer] drug information is an informational resource designed to assist licensed healthcare practitioners in caring for their patients and/or to serve consumers viewing this service as a supplement to, and not a substitute for, the expertise, skill, knowledge and judgment of healthcare practitioners. The absence of a warning for a given drug or drug combination in no way should be construed to indicate that the drug or drug combination is safe, effective or appropriate for any given patient. [employer] does not assume any responsibility for any aspect of healthcare administered with the aid of information [employer] provides. The information contained herein is not intended to cover all possible uses, directions, precautions, warnings, drug interactions, allergic reactions, or adverse effects. If you have questions about the drugs you are taking, check with your doctor, nurse or pharmacist. Copyright 9865-4309 [employer]. Version: 15.02. Revision Date: 01/09/2018.ondansetron (oral) (on NORBERTO se rosanna) Canelo Lemos Zu[employer] What is the most important information I should know about ondansetron? You should not use ondansetron if you are also using apomorphine (Apokyn). What is ondansetron? Ondansetron blocks the actions of chemicals in the body that can trigger nausea and vomiting. Ondansetron is used to prevent nausea and vomiting that may be caused by surgery, cancer chemotherapy, or radiation treatment. Ondansetron may be used for purposes not listed in this medication guide. What should I discuss with my health care provider before taking ondansetron? You should not use ondansetron if: ? you are also using apomorphine (Apokyn); or ?? you are allergic to ondansetron or similar medicines (dolasetron, granisetron, palonosetron). To make sure ondansetron is safe for you, tell your doctor if you have: ? liver disease; ?? an electrolyte imbalance (such as low levels of potassium or magnesium in your blood); ?? congestive heart failure, slow heartbeats; ?? a personal or family history of long QT syndrome; or ?? a blockage in your digestive tract (stomach or intestines). Ondansetron is not expected to harm an unborn baby. Tell your doctor if you are . It is not known whether ondansetron passes into breast milk or if it could harm a nursing baby. Tell your doctor if you are breast-feeding a baby. Ondansetron is not approved for use by anyone younger than 4 years old. Ondansetron orally disintegrating tablets may contain phenylalanine. Tell your doctor if you have phenylketonuria (PKU). How should I take ondansetron? Follow all directions on your prescription label. Do not take this medicine in larger or smaller amounts or for longer than recommended. Ondansetron can be taken with or without food. The first dose of ondansetron is usually taken before the start of your surgery, chemotherapy, or radiation treatment. Follow your doctor's dosing instructions very carefully. Take the ondansetron regular tablet with a full glass of water. To take the orally disintegrating tablet (Zofran ODT): ? Keep the tablet in its blister pack until you are ready to take it. Open the package and peel back the foil. Do not push a tablet through the foil or you may damage the tablet. ?? Use dry hands to remove the tablet and place it in your mouth. ?? Do not swallow the tablet whole. Allow it to dissolve in your mouth without chewing. ?? Swallow several times as the tablet dissolves. To use ondansetron oral soluble film (strip) (Zuplenz): ? Keep the strip in the foil pouch until you are ready to use the medicine. ?? Using dry hands, remove the strip and place it on your tongue. It will begin to dissolve right away. ?? Do not swallow the strip whole. Allow it to dissolve in your mouth without chewing. ?? Swallow several times after the strip dissolves. If desired, you may drink liquid to help swallow the dissolved strip. ?? Wash your hands after using Zuplenz. Measure liquid medicine with the dosing syringe provided, or with a special dose-measuring spoon or medicine cup. If you do not have a dose-measuring device, ask your pharmacist for one. Store at room temperature away from moisture, heat, and light. Store liquid medicine in an upright position. What happens if I miss a dose? Take the missed dose as soon as you remember. Skip the missed dose if it is almost time for your next scheduled dose. Do not take extra medicine to make up the missed dose. What happens if I overdose? Seek emergency medical attention or call the Poison Help line at . Overdose symptoms may include sudden loss of vision, severe constipation, feeling light-headed, or fainting. What should I avoid while taking ondansetron? Ondansetron may impair your thinking or reactions. Be careful if you drive or do anything that requires you to be alert. What are the possible side effects of ondansetron? Get emergency medical help if you have signs of an allergic reaction: rash, hives; fever, chills, difficult breathing; swelling of your face, lips, tongue, or throat. Call your doctor at once if you have: ? severe constipation, stomach pain, or bloating; ?? headache with chest pain and severe dizziness, fainting, fast or pounding heartbeats; ?? fast or pounding heartbeats; ?? jaundice (yellowing of the skin or eyes); ?? blurred vision or temporary vision loss (lasting from only a few minutes to several hours); ?? high levels of serotonin in the body--agitation, hallucinations, fever, fast heart rate, overactive reflexes, nausea, vomiting, diarrhea, loss of coordination, fainting. Common side effects may include: ? diarrhea or constipation; ?? headache; ?? drowsiness; or ?? tired feeling. This is not a complete list of side effects and others may occur. Call your doctor for medical advice about side effects. You may report side effects to FDA at 8-761-EWU-7448. What other drugs will affect ondansetron? Ondansetron can cause a serious heart problem, especially if you use certain medicines at the same time, including antibiotics, antidepressants, heart rhythm medicine, antipsychotic medicines, and medicines to treat cancer, malaria, HIV or AIDS. Tell your doctor about all medicines you use, and those you start or stop using during your treatment with ondansetron. Taking ondansetron while you are using certain other medicines can cause high levels of serotonin to build up in your body, a condition called 'serotonin syndrome,' which can be fatal. Tell your doctor if you also use: ? medicine to treat depression; ?? medicine to treat a psychiatric disorder; ?? a narcotic (opioid) medication; or ?? medicine to prevent nausea and vomiting. This list is not complete and many other drugs can interact with ondansetron. This includes prescription and wxqz-ufx-eqmmhtf medicines, vitamins, and herbal products. Give a list of all your medicines to any healthcare provider who treats you. Where can I get more information? Your pharmacist can provide more information about ondansetron. Remember, keep this and all other medicines out of the reach of children, never share your medicines with others, and use this medication only for the indication prescribed. Every effort has been made to ensure that the information provided by [employer] is accurate, up-to-date, and complete, but no guarantee is made to that effect. Drug information contained herein may be time sensitive. [employer] information has been compiled for use by healthcare practitioners and consumers in the [place] and therefore [employer] does not warrant that uses outside of the [place] are appropriate, unless specifically indicated otherwise. [employer] drug information does not endorse drugs, diagnose patients or recommend therapy. [employer] drug information is an informational resource designed to assist licensed healthcare practitioners in caring for their patients and/or to serve consumers viewing this service as a supplement to, and not a substitute for, the expertise, skill, knowledge and judgment of healthcare practitioners. The absence of a warning for a given drug or drug combination in no way should be construed to indicate that the drug or drug combination is safe, effective or appropriate for any given patient. [employer] does not assume any responsibility for any aspect of healthcare administered with the aid of information [employer] provides. The information contained herein is not intended to cover all possible uses, directions, precautions, warnings, drug interactions, allergic reactions, or adverse effects. If you have questions about the drugs you are taking, check with your doctor, nurse or pharmacist. Copyright 8404-7786 [employer]. Version: 13.01. Revision Date: 12/26/2015. Emergency Awareness and Preventative Care STROKE is [...] Assistance with quitting is available by contacting 3-603-LANZ-NOW. This is a free resource providing counseling, [...] This Visit (last charted value for your 09/29/2018 visit) No Laboratory or Other Results This Visit Patient Name:MELINDA APONTE I have received and understand this information and was given the opportunity to ask questions. Patient/Sales Operations Assistant Name: Patient/Sales Operations Assistant Signature: Relationship to Patient: Clinician/Hospital Sales Operations Assistant Signature: Date: Electronically signed by Serafin, [facility] Conversion Senior Systems Developer Cerner at 06/22/2022 9:26 AM CDT documented in this encounter Plan of Treatment Not on file documented as of this encounter Visit Diagnoses Not on filedocumented in this encounter
--- OUTSIDE RECORDS SUMMARY | 2024-08-27 11:26 | XMS_ITS | Encounter Summary ---
Author Organization [employer] Address [address] [place] [address] Care Team Providers Care Wrapper Stitcher Name Role Phone Unavailable Primary Care Provider Unavailabl e Encounter Details Date Type Department Care Team (Late st Contact Info) Description 03/26/2021 Transcribed Document [facility] [place] Family [place] [address] ProviderLeyda MD [address] [place] [address] [id number] Social History Tobacco Use Types Packs/Day Years Used Date Smoking Tobacco: Never Assessed Comments Unknown Sex and Gender Information Value Date Recorded Sex Assigned at Not on file Legal Sex Female 6:21 PM CDT Gender Identity Not on file Sexual Orientation Not on file documented as of this encounter Miscellaneous Notes * [employer] Conversion Note - Leyda ProviderMD - 03/26/2021 9:40 AM SALES AND SERVICE ENGINEER Patient: MELINDA APONTE Age: 46 years Sex: Female : 1975 Associated Diagnoses: None Author: CHRISTINARSHYLA APRN Chief Complaint pleasant 46 yo female here with her for lap ally with IOC with Dr. Baum. pt has been having gallbladder attacks for about 6 months. Review of Systems Constitutional: obese. Eye: Negative. Ear/Nose/Mouth/Throat: Negative. Respiratory: Negative. Cardiovascular: Negative. Gastrointestinal: Abdominal pain: Right, Upper quadrant. Genitourinary: Negative. Hematology/Lymphatics: Negative. Endocrine: Negative. Immunologic: Negative. Musculoskeletal: Negative. Integumentary: Negative. Neurologic: Negative. Psychiatric: Negative. All other systems are negative Health Status Allergies: Allergic Reactions (Selected) Severity Not Documented LaMICtal- Itching. Nickel- Rash., Allergies (2) Active Reaction LaMICtal itching Nickel rash Current medications: (Selected) Inpatient Medications Ordered Ancef: 2 Gram, 50 mL, 100 mL/Hr, IV Piggyback, PREOP Lactated Ringers Injection intravenous solution 1,000 mL: 20 mL/Hr, IntraVENous Sodium Chloride 0.9% intravenous solution 1,000 mL: 100 mL/Hr, IntraVENous lidocaine 1% preservative-free injectable solution: 0.5 mL, IntraDermal, 1-Time Documented Medications Documented estradiol: 2 mg, Oral, Daily, 0 Refill(s) magnesium citrate: Oral, Daily, 0 Refill(s) omeprazole: 40 mg, Oral, Daily, 0 Refill(s), Home Medications (3) Active estradiol 2 mg, Oral, Daily magnesium citrate , Oral, Daily omeprazole 40 mg, Oral, Daily , Medications (4) Active Scheduled: (2) ceFAZolin/D5w 2 Gram 50 mL, IV Piggyback, PREOP lidocaine 1% *PF* inj 2 mL 0.5 mL, IntraDermal, 1-Time Continuous: (2) lactated ringers 1,000 mL 1,000 mL, IntraVENous, 20 mL/Hr NaCl 0.9% 1,000 mL 1,000 mL, IntraVENous, 100 mL/Hr PRN: (0) Problem list: All Problems Hepatitis C (pt states tested last week and neg) / SNOMED CT 94444605 / Confirmed Left bundle branch block / SNOMED CT 057793435 / Confirmed GERD (gastroesophageal reflux disease) / SNOMED CT 722087615 / Confirmed Constipation / SNOMED CT 97621404 / Confirmed Anxiety and depression / SNOMED CT 71767044 / Confirmed, Active Problems (5) Anxiety and depression Constipation GERD (gastroesophageal reflux disease) Hepatitis C (pt states tested last week and neg) Left bundle branch block Histories Past Medical History: Active Left bundle branch block (546819248) Anxiety and depression (62065620) Hepatitis C (pt states tested last week and neg) (97937333) Constipation (49293383) GERD (gastroesophageal reflux disease) (573837541) Family History: No family history items have been selected or recorded. Procedure history: . Hysterectomy (982474672). Colonoscopy (048084066). Esophagogastroduodenoscopy (621967380). Breast augmentation (5214983921). hernia repair. Social History Social & Psychosocial Habits Alcohol 05/25/2018 Alcohol Use History, Social Habits Yes Alcohol Use Frequency Socially Nutrition/Health 05/25/2018 Caffeine intake amount: coffee soda daily Substance Abuse 05/25/2018 Recreational Drug Use History No Tobacco 05/25/2018 Smoking Status Never (less than 100 in l Smokeless Tobacco Status Never . Physical Examination VS/Measurements Vital Signs/Vital Measures 03/26/2021 9:00 EST Systolic Blood Pressure 129 mmHg Diastolic Blood Pressure 80 mmHg Temperature Source Temporal artery scanning Temperature Mode Fahrenheit Temperature, Fahrenheit 98.4 Deg F Clinical Temperature, C 36.9 Deg C Heart Rate Monitored 72 bpm Oxygen Saturation 98 % Oxygen Therapy Mode Room air , Vitals Signs (last 24 hrs) Last Charted Minimum Maximum Temp 98.4 (MAR 26 09:00) 98.4 (MAR 26 09:00) 98.4 (MAR 26 09:00) Mon HR 72 (MAR 26 09:00) 72 (MAR 26 09:00) 72 (MAR 26 09:00) SBP 129 (MAR 26 09:00) 129 (MAR 26 09:00) 129 (MAR 26 09:00) DBP 80 (MAR 26 09:00) 80 (MAR 26 09:00) 80 (MAR 26 09:00) SpO2 98 (MAR 26 09:00) 98 (MAR 26 09:00) 98 (MAR 26 09:00) , Measurements from flowsheet : Measurements 03/25/2021 14:18 EST Height Source Measured Height Entry Format [place] Height/Length, DANISH (ft) 5 ft Height/Length DANISH 1 Inch CLINICALHEIGHT 154.94 cm [place] Body Weight 47 kg Weight Source Standing scale Weight Entry Format [place] Weight [place] lb 178 lb Weight [place] oz 6 oz CLINICALWEIGHT 81.08 kg Body Surface Area (BSA) 1.8 m2 Body Mass Index 33.8 kg/m2 HI General: Alert and oriented, No acute distress, obese. Eye: Extraocular movements are intact, glasses. HENT: Normocephalic, Normal hearing. Respiratory: Lungs are clear to auscultation, Respirations are non-labored, kendrick breast implants. Cardiovascular: Normal rate, Regular rhythm, No murmur, No gallop, No edema. Gastrointestinal: Soft, epigastric tenderness on palpation . Musculoskeletal: Normal range of motion, Normal strength. Integumentary: Warm, Dry, [place]. Neurologic: Alert, Oriented. Psychiatric: Cooperative, Appropriate mood & affect. Review / Management Results review: No qualifying data available. Impression and Plan Diagnosis 1. gallstones 2. anxiety/depression 3. constipation 4. GERD 5. Hep C 6. L BBB. Condition: Stable. pt to proceed with surgery, DC home today Electronically signed by Ernesto Betancourt Conversion Tipping Machine Operator Automatic Cerner at 06/22/2022 9:22 AM CDT documented in this encounter Plan of Treatment Not on file documented as of this encounter Visit Diagnoses Not on filedocumented in this encounter
--- OUTSIDE RECORDS SUMMARY | 2024-08-27 11:26 | XMS_ITS | Encounter Summary ---
Author Organization [employer] Address [address] [place] [address] Care Team Providers Care Proposal Manager Name Role Phone Unavailable Primary Care Provider Unavailabl e Encounter Details Date Type Department Care Team (Late st Contact Info) Description 09/29/2018 Transcribed Document [facility] [place] Family Medicine [address] [place] [address] ProviderLeyda MD [address] [place] [address] [phone] Social History Tobacco Use Types Packs/Day Years Used Date Smoking Tobacco: Never Assessed Comments Unknown Sex and Gender Information Value Date Recorded Sex Assigned at Not on file Legal Sex Female 6:21 PM CDT Gender Identity Not on file Sexual Orientation Not on file documented as of this encounter Miscellaneous Notes * [employer]ner Conversion Note - Leyda ProviderMD - 09/29/2018 5:42 PM CDT Pain Assessment Entered On: 09/30/2018 11:59 EDT Performed On: 09/30/2018 10:07 EDT by Kelly Martines RN Intervention Information: acetaminophen-HYDROcodone Performed by Kelly Martines RN on 09/30/2018 09:07:00 EDT acetaminophen-HYDROcodone,2Tab Oral,Pain (Moderate 4-6) Pain Assessment Pain Assessment : Follow-up assessment Pain Scale Goal : 4 Pain Scale Used : 0-10 Scale Kelly Martines RN - 09/30/2018 11:59 EDT Pain Scale Intensity : 0 Kelly Martines RN - 09/30/2018 11:59 EDT Image 4 - Images currently included in the form version of this document have not been included in the text rendition version of the form. Electronically signed by Ernesto Betancourt Conversion Slab Conditioner Supervisor Cerner at 06/27/2022 1:10 PM CDT documented in this encounter Plan of Treatment Not on file documented as of this encounter Visit Diagnoses Not on filedocumented in this encounter
--- OUTSIDE RECORDS SUMMARY | 2024-08-27 11:26 | XMS_ITS | Encounter Summary ---
Author Organization [employer] Address [address] [place] [address] Care Team Providers Care Coil Shaper Name Role Phone Unavailable Primary Care Provider Unavailabl e Encounter Details Date Type Department Care Team (Late st Contact Info) Description 09/03/2019 Transcribed Document [facility] [place] Family [place] [address] ProviderLeyda MD [address] [place] [address] [id number] Social History Tobacco Use Types Packs/Day Years Used Date Smoking Tobacco: Never Assessed Comments Unknown Sex and Gender Information Value Date Recorded Sex Assigned at Not on file Legal Sex Female 6:21 PM CDT Gender Identity Not on file Sexual Orientation Not on file documented as of this encounter Miscellaneous Notes * [employer]ner Conversion Note - Leyda ProviderMD - 09/03/2019 4:46 PM CDT Pre Procedure Adult Entered On: 09/03/2019 16:48 EDT Performed On: 09/03/2019 16:46 EDT by Vivian Torres RN Height and Weight, Clinical Dosing Height Source : Stated Height Entry Format : [place] Height, Feet : 5 ft(Converted to: 152 cm, 60 Inch) Height, Inches : 1 Inch(Converted to: 0 ft 1 Inch, 2.54 cm) Clinical Height : 154.94 cm [place] Body Weight : 47 kg Vivian Torres RN - 09/03/2019 16:46 EDT Health Histories Smoking Status : Never (less than 100 in lifetime; none in last 30 days) Smokeless Tobacco Status : Never Implant/Device Type, Upper And Bottom Lacer Hand and Model : Vivian Muller RN - 09/03/2019 16:46 EDT Social History (As Of: 09/03/2019 16:48:45 EDT) Tobacco: Never (less than 100 in [...] by KAMALA MOISE RN) Infectious Disease History Has the patient ever been tested for COVID-19? : Yes, Patient stated results pending COVID19 Screening : No Experiencing Infectious Disease Symptoms : No symptoms Physical contact outside [place] in the last 30 days : No Infectious Disease Symptoms Score : 0 Infectious Disease History : Chicken pox/Shingles, Influenza, Other: hepatits C- tested last week and tested neg Tuberculosis Symptoms : None Vivian Torres RN - 09/03/2019 16:46 EDT COVID19 PreProcedure Screening Is this an Emergent or Add on Procedure? : No Has patient been isolated since the test : Yes Exposed to COVID19 symptoms since test? : No Vivian Torres RN - 09/03/2019 16:46 EDT Anesthesia/Transfusion History Family History of Anesthesia Reaction : Prior transfusion without reaction Transfusion History : Prior anesthesia without reaction Family History of Anesthesia Reaction : None Vivian Torres RN - 09/03/2019 16:46 EDT Functional Assessment Living Situation : Home Current Home Treatments : None Vivian Torres RN - 09/03/2019 16:46 EDT [place] Suicide Severity Rating Scale (C-SSRS) CSSRS Past Month Wish to be : No CSSRS Past Month Suicidal Thoughts : No CSSRS Lifetime Suicide Behavior : No Suicide Severity Rating Score : 0 Suicide Severity Rating : No Additional Care Required at this time Vivian Torres RN - 09/03/2019 16:46 EDT Psychosocial History Do You Have a History of the Following? : Anxiety, Depression Currently in Unsafe Situation : No Vivian Torres RN - 09/03/2019 16:46 EDT Advance Directive Patient has Advance Directive *Q : No, patient refuses Advance Directive information Vivian Torres RN - 09/03/2019 16:46 EDT General Info Want Family/Rep/Phys Notified of Admit : No Emergency Contact #1 : Devonte Aponte Emergency Contact #1 Emergency Contact #1 Relationship : Emergency Contact #2 : na Emergency Contact #2 Phone Number : na Emergency Contact #2 Relationship : na Primary Language : Swazi Preferred Communication Mode : Verbal Communication Barrier : None Production Operations Manager Needed : No Vivian Torres RN - 09/03/2019 16:46 EDT Sleep Apnea Risk Assmt Hx of [...] Sleep Apnea Risk Level Score : 0 Vivian Torres RN - 09/03/2019 16:46 EDT Lexa Scale Lexa Sensory Perception : No impairment Lexa Moisture : Rarely moist Lexa Activity : Walks frequently Lexa Mobility : No limitation Lexa Nutrition : Adequate Lexa Friction and Shear : No apparent problem Lexa Score : 22 Vivian Torres RN - 09/03/2019 16:46 EDT Fall Risk Scales ABCs Fall Injury Risk Identification : None GORMAN Hx Falls Immediate/Within 3 Months : No Gorman Secondary Diagnosis : No GORMAN Use of Ambulatory Aid : None GORMAN IV Therapy or IV Access : Yes [place] Gait/Transferring : Normal, bedrest, immobile [place]orman Mental Status : Oriented to own ability [place] Fall Risk Score : 20 G[place]MAN Fall Scale Risk Level : 0-24 Low Risk [place] Fall Interventions : Hourly comfort/safety rounds, Non-slip footwear, Reinforced to call for assistance before getting out of bed Vivian Torres RN - 09/03/2019 16:46 EDT documented in this encounter Plan of Treatment Not on file documented as of this encounter Visit Diagnoses Not on filedocumented in this encounter
--- OUTSIDE RECORDS SUMMARY | 2024-08-27 11:26 | XMS_ITS | Encounter Summary ---
Author Organization [employer] Address [address] [place] [address] Care Team Providers Care Mechanical Adjuster Name Role Phone Unavailable Primary Care Provider Unavailabl e Encounter Details Date Type Department Care Team (Late st Contact Info) Description 09/30/2018 Transcribed Document [facility] [place] [facility] [place] [address] ProviderLeyda MD [address] [place] [address] [phone] Social History Tobacco Use Types Packs/Day Years Used Date Smoking Tobacco: Never Assessed Comments Unknown Sex and Gender Information Value Date Recorded Sex Assigned at Not on file Legal Sex Female 6:21 PM CDT Gender Identity Not on file Sexual Orientation Not on file documented as of this encounter Miscellaneous Notes * Cerner Conversion Note - Leyda Clark MD - 09/30/2018 1:40 PM CDT Patient Education Materials Follows: Laparoscopic Inguinal Hernia Repair, Pediatric Laparoscopic inguinal [...] including vitamins, herbs, eye drops, creams, and [id number] medicines. ??? Previous problems your child or [...] 02/21/2006 Document Revised: 07/29/2016 Document Reviewed: 08/25/2015 Elsevier Interactive Patient Education ? 2019 [employer] documented in this encounter Plan of Treatment Not on file documented as of this encounter Visit Diagnoses Not on filedocumented in this encounter
--- OUTSIDE RECORDS SUMMARY | 2024-08-27 11:26 | XMS_ITS | Encounter Summary ---
Author Organization [employer] Address [address] [place] [address] Care Team Providers Care Finisher Brush Name Role Phone Unavailable Primary Care Provider Unavailabl e Encounter Details Date Type Department Care Team (Late st Contact Info) Description 09/29/2018 Transcribed Document [facility] [place] Family Medicine [facility] [address] ProviderLeyda MD [facility] [place], [place] [id number] Social History Tobacco Use Types Packs/Day Years Used Date Smoking Tobacco: Never Assessed Comments Unknown Sex and Gender Information Value Date Recorded Sex Assigned at Not on file Legal Sex Female 6:21 PM CDT Gender Identity Not on file Sexual Orientation Not on file documented as of this encounter Miscellaneous Notes * Cerner Conversion Note - Leyda ProviderMD - 09/29/2018 12:13 PM CDT Pre Procedure Adult Entered On: 09/29/2018 12:18 EDT Performed On: 09/29/2018 12:13 EDT by Starr Silva Rn Height and Weight, Clinical Dosing Height Source : Stated Height Entry Format : [place] Height, Feet : 5 ft(Converted to: 152 cm, 60 Inch) Height, Inches : 1 Inch(Converted to: 0 ft 1 Inch, 2.54 cm) Clinical Height : 154.94 cm Weight Source : Standing scale Weight Entry Format : [place] Clinical Dosing Weight : 79.55 kg Weight, Pounds : 175 lb Body Surface Area (BSA) : 1.79 m2 Body Mass Index : 33.1 kg/m2 (HI) [place] Body Weight : 47 kg Starr Silva Rn - 09/29/2018 12:13 EDT Health Histories Smoking Status : Never (less than 100 in lifetime; none in last 30 days) Smokeless Tobacco Status : Never Implant/Device Type, Donor Processor and Model : Starr Clark Rn - 09/29/2018 12:13 EDT Social History (As Of: 09/29/2018 12:18:14 EDT) Tobacco: Never (less than 100 in [...] by KAMALA MOISE RN) Infectious Disease History Infectious Disease History : Chicken pox/Shingles, Influenza, Other: hepatits C- tested last week and tested neg Isolation Needed : Standard Fever/Chills Last 48 Hours : No Travel To Regions with Travel Advisories : No Travel Outside [place] Within Last 30 Days : No Contact With Traveler to Advisory Region : No Tuberculosis Symptoms : None Starr Silva Rn - 09/29/2018 12:13 EDT Anesthesia/Transfusion History Family History of Anesthesia Reaction : Prior transfusion without reaction Transfusion History : Prior anesthesia without reaction Family History of Anesthesia Reaction : None Starr Silva Rn - 09/29/2018 12:13 EDT Functional Assessment Living Situation : Home [...] Special Services and Community Resources : None Starr Silva Rn - 09/29/2018 12:13 EDT Psychosocial History Do You Have a History of the Following? : Anxiety, Depression Currently in Unsafe Situation : No Tried to Harm Yourself in the Past? : No Thoughts of Harming/Killing Yourself : No Starr Silva Rn - 09/29/2018 12:13 EDT Advance Directive Patient has Advance Directive *Q : No, patient refuses Advance Directive information Starr Silva Rn - 09/29/2018 12:13 EDT Spiritual/Cultural Needs Any Spiritual/Cultural Needs or Requests : No Starr Silva Rn - 09/29/2018 12:13 EDT Teaching/Learning Assessment Barriers To Learning : None evident Individuals Taught : Patient Readiness to Learn : Cooperative Readiness to Learn : Explanation Learning Style Preferences Patient : None Learning Style Preferences Family : None Starr Silva Rn - 09/29/2018 12:13 EDT Education Topics, Periop Preadmission Perioperative Education [place] : Verbalizes understanding Infection Control : Verbalizes understanding IV's : Verbalizes understanding NPO Status/Directions : Verbalizes understanding Pain Management : Verbalizes understanding Postoperative Care Preparations : Verbalizes understanding Preprocedure Preparations : Verbalizes understanding Preprocedure Tests/Labs : Verbalizes understanding Starr Silva Rn - 09/29/2018 12:13 EDT General Info Arrived From : Home Mode of Arrival on Unit : Ambulatory Patient Arrival Date/Time : 09/29/2018 11:40 EDT Legal Guardian : Spouse Want Family/Rep/Phys Notified of Admit : No Emergency Contact #1 : Devonte Aponte Emergency Contact #1 Emergency Contact #1 Relationship : Emergency Contact #2 : none Emergency Contact #2 Phone Number : none Emergency Contact #2 Relationship : none Information Obtained From : Patient Primary Language : Burkinan Preferred Communication Mode : Verbal Communication Barrier : None Currently Lactating : No Status : Hysterectomy Starr Silva Rn - 09/29/2018 12:13 EDT Sleep Apnea Risk Assmt Hx of [...] Sleep Apnea Risk Level Score : 0 Starr Silva Rn - 09/29/2018 12:13 EDT Lexa Scale Lexa Sensory Perception : No impairment Lexa Moisture : Rarely moist Lexa Activity : Walks occasionally Lexa Mobility : No limitation Lexa Nutrition : Adequate Lexa Friction and Shear : No apparent problem Lexa Score : 21 Starr Silva Rn - 09/29/2018 12:13 EDT Oxygen Therapy Oxygen Therapy Mode : Room air Starr Silva Rn - 09/29/2018 12:13 EDT Pain Assessment Pain Assessment : Initial assessment Pain Scale Goal : 4 Pain Scale Used : 0-10 Scale Starr Silva Rn - 09/29/2018 12:13 EDT Fall Risk Scales ABCs Fall Injury [...] Risk Level : 0-24 Low Risk [place] Fall Interventions : Adequate lighting, Bed in low position, Call device within reach, Room free of clutter/spills, Upper side-rails up, Wheels locked Starr Silva Rn - 09/29/2018 12:13 EDT Fall Risk Education Grid Call light use : Verbalizes understanding Nonskid Footwear Use : Verbalizes understanding Prevention Responsibility Patient : Verbalizes understanding Starr Silva Rn - 09/29/2018 12:13 EDT Barriers to Learning : None evident Individuals Taught : Patient Readiness to Learn : Cooperative Teaching Method : Explanation Learning Style Preferences Family : None Learning Style Preferences Patient : None Starr Silva Rn - 09/29/2018 12:13 EDT Education Topics, Day of Surgery DayofSurgery Education Grid Fall Risks : Verbalizes understanding Family Instructions : Verbalizes understanding Infection Control : Verbalizes understanding Infection Risks : Verbalizes understanding IV's : Verbalizes understanding Medication Instructions : Verbalizes understanding Pain Management : Verbalizes understanding Plan of Care : Verbalizes understanding Starr Silva Rn - 09/29/2018 12:13 EDT Valuables and Belongings Valuables and Belongings : Clothing, Personal items Clothing : Common streetwear Clothing Disposition : With family Personal Items : Cell phone, Credit cards Personal Items Disposition : With family Starr Silva Rn - 09/29/2018 12:13 EDT Pain Scale Intensity : 0 Starr Silva Rn - 09/29/2018 12:13 EDT Image 4 - Images currently included in the form version of this document have not been included in the text rendition version of the form. Buzz Coma Buzz Best Motor Response : Obey commands [place] Best Verbal Response : Oriented Buzz Eye Opening Response : Spontaneous [place] Coma Score : 15 Starr Silva Rn - 09/29/2018 12:13 EDT documented in this encounter Plan of Treatment Not on file documented as of this encounter Visit Diagnoses Not on filedocumented in this encounter
--- OUTSIDE RECORDS SUMMARY | 2024-08-27 11:26 | XMS_ITS | Encounter Summary ---
Author Organization [employer] Address [address] [place] [address] Care Team Providers Care Handstitching Machine Armhole Feller Name Role Phone Unavailable Primary Care Provider Unavailabl e Encounter Details Date Type Department Care Team (Late st Contact Info) Description 09/04/2019 Transcribed Document [facility] [place] [facility] [address] ProviderLeyda MD [facility] [place], [place] [id number] Social History Tobacco Use Types Packs/Day Years Used Date Smoking Tobacco: Never Assessed Comments Unknown Sex and Gender Information Value Date Recorded Sex Assigned at Not on file Legal Sex Female 6:21 PM CDT Gender Identity Not on file Sexual Orientation Not on file documented as of this encounter Miscellaneous Notes * Cerner Conversion Note - Leyda ProviderMD - 09/04/2019 9:11 AM CDT Pre Procedure Adult Entered On: 09/04/2019 9:13 EDT Performed On: 09/04/2019 9:11 EDT by Seema Sheriff RN Height and Weight, Clinical Dosing Height Source : Stated Height Entry Format : [place] Height, Feet : 5 ft(Converted to: 152 cm, 60 Inch) Height, Inches : 1 Inch(Converted to: 0 ft 1 Inch, 2.54 cm) Clinical Height : 154.94 cm Weight Source : Standing scale Weight Entry Format : [place]aliel Clinical Dosing Weight : 80.18 kg Weight, Pounds : 176.4 lb Body Surface Area (BSA) : 1.79 m2 Body Mass Index : 33.4 kg/m2 (HI) [place] Body Weight : 47 kg Seema Sheriff RN - 09/04/2019 9:11 EDT Health Histories Smoking Status : Never (less than 100 in lifetime; none in last 30 days) Smokeless Tobacco Status : Never Implant/Device Type, Transit Specialist and Model : laurenceteddy Seema Sheriff RN - 09/04/2019 9:11 EDT Social History (As Of: 09/04/2019 09:13:40 EDT) Tobacco: Never (less than 100 in [...] and tested neg Tuberculosis Symptoms : None Seema Sheriff RN - 09/04/2019 9:11 EDT COVID19 PreProcedure Screening Is this an Emergent or Add on Procedure? : No Has patient been isolated since the test : Yes Exposed to COVID19 symptoms since test? : No Seema Sheriff RN - 09/04/2019 9:11 EDT Anesthesia/Transfusion History Family History of Anesthesia Reaction : Prior transfusion without reaction Transfusion History : Prior anesthesia without reaction Family History of Anesthesia Reaction : None Seema Sheriff RN - 09/04/2019 9:11 EDT Functional Assessment Living Situation : Home Current Home Treatments : None Seema Sheriff RN - 09/04/2019 9:11 EDT Jack Suicide Severity Rating Scale (C-SSRS) CSSRS Past Month Wish to be : No CSSRS Past Month Suicidal Thoughts : No CSSRS Lifetime Suicide Behavior : No Suicide Severity Rating Score : 0 Suicide Severity Rating : No Additional Care Required at this time Seema Sheriff RN - 09/04/2019 9:11 EDT Psychosocial History Do You Have a History of the Following? : Anxiety, Depression Currently in Unsafe Situation : No Seema Sheriff RN - 09/04/2019 9:11 EDT Advance Directive Patient has Advance Directive *Q : No, patient refuses Advance Directive information Seema Sheriff RN - 09/04/2019 9:11 EDT General Info Want Family/Rep/Phys Notified of Admit : No Emergency Contact #1 : Devonte Aponte Emergency Contact #1 Emergency Contact #1 Relationship : Emergency Contact #2 : na Emergency Contact #2 Phone Number : na Emergency Contact #2 Relationship : na Primary Language : Croatian Preferred Communication Mode : Verbal Communication Barrier : None [employer] Business Representative Needed : No Seema Sheriff RN - 09/04/2019 9:11 EDT Sleep Apnea Risk Assmt Hx of [...] Sleep Apnea Risk Level Score : 0 Seema Sheriff RN - 09/04/2019 9:11 EDT Lexa Scale Lexa Sensory Perception : No impairment Lexa Moisture : Rarely moist Lexa Activity : Walks frequently Lexa Mobility : No limitation Lexa Nutrition : Adequate Lexa Friction and Shear : No apparent problem Lexa Score : 22 Seema Sheriff RN - 09/04/2019 9:11 EDT Fall Risk Scales ABCs Fall Injury [...] Scale Risk Level : 25-45 Medium Risk [place] Fall Interventions : Bed in low position, Call device within reach, Wheels locked Seema Sheriff RN - 09/04/2019 9:11 EDT Valuables and Belongings Valuables and Belongings : Clothing Clothing : Common streetwear Clothing Disposition : Bedside Seema Sheriff RN - 09/04/2019 9:11 EDT documented in this encounter Plan of Treatment Not on file documented as of this encounter Visit Diagnoses Not on filedocumented in this encounter
--- OUTSIDE RECORDS SUMMARY | 2024-08-27 11:26 | XMS_ITS | Encounter Summary ---
Author Organization [facility] [employer] Address [address] [place] [address] Care Team Providers Care Resolution Analyst Name Role Phone Unavailable Primary Care Provider Unavailabl e Encounter Details Date Type Department Care Team (Late st Contact Info) Description 09/29/2018 Transcribed Document [facility] [place] [address] [place] [address] ProviderLeyda MD [address] [place] [address] Social History Tobacco Use Types Packs/Day Years Used Date Smoking Tobacco: Never Assessed Comments Unknown Sex and Gender Information Value Date Recorded Sex Assigned at Not on file Legal Sex Female 6:21 PM CDT Gender Identity Not on file Sexual Orientation Not on file documented as of this encounter Miscellaneous Notes * Cerner Conversion Note - Leyda ProviderMD - 09/29/2018 11:53 AM CDT Pediatric Growth Entered On: 09/29/2018 11:54 EDT Performed On: 09/29/2018 11:53 EDT by Carissa Pulido [facility] Unit Coord Height and Weight, Clinical Dosing Weight Source : Standing scale Weight Entry Format : [place] Clinical Dosing Weight : 79.55 kg Weight, Pounds : 175 lb Carissa Pulido [facility] - 09/29/2018 11:53 EDT documented in this encounter Plan of Treatment Not on file documented as of this encounter Visit Diagnoses Not on filedocumented in this encounter
--- OUTSIDE RECORDS SUMMARY | 2024-08-27 11:26 | XMS_ITS | Encounter Summary ---
Author Organization [employer] Address [address] [place] [address] Care Team Providers Care Payroll Supervisor Name Role Phone Unavailable Primary Care Provider Unavailabl e Encounter Details Date Type Department Care Team (Late st Contact Info) Description 09/29/2018 Transcribed Document [facility] [place] [facility] [place] [address] ProviderLeyda MD [address] [place] [id number] Social History Tobacco Use Types Packs/Day Years [...] PM CDT Pain Assessment Entered On: 09/29/2018 16:17 EDT Performed On: 09/29/2018 16:22 EDT by Michelle Toribio Rn Patient Care Bedside Intervention Information: [email or web address] Performed by Michelle Toribio Rn Patient Care Bedside on 09/29/2018 15:52:00 EDT fentaNYL,50mcg IV Push,Peripheral Line 1,Pain (Moderate 4-6) Pain Assessment Pain Assessment : Follow-up assessment Pain Scale Goal : 4 Pain Improved by Intervention : No Michelle Toribio Rn Patient Care Bedside - 09/29/2018 16:17 EDT documented in this encounter Plan of Treatment Not on file documented as of this encounter Visit Diagnoses Not on filedocumented in this encounter
--- OUTSIDE RECORDS SUMMARY | 2024-08-27 11:27 | XMS_ITS | Encounter Summary ---
Author Organization [facility] [employer] Address [address] [place] [address] Care Team Providers Care Special Librarian Name Role Phone Unavailable Primary Care Provider Unavailabl e Encounter Details Date Type Department Care Team (Late st Contact Info) Description 05/25/2018 Transcribed Document [facility] [place] [address] ProviderLeyda MD [address] [place] [id number] Social History Tobacco Use Types Packs/Day Years Used Date Smoking Tobacco: Never Assessed Comments Unknown Sex and Gender Information Value Date Recorded Sex Assigned at Not on file Legal Sex Female 6:21 PM CDT Gender Identity Not on file Sexual Orientation Not on file documented as of this encounter Miscellaneous Notes * Cerner Conversion Note - Leyda ProviderMD - 05/25/2018 2:13 PM CDT [facility] PACU Summary Primary Physician: ZINA STEELE MD-GAE Finalized Date/Time: 05/25/18 16:17:32 Pt. Name: MELINDA APONTE /Sex: 1975 Female Med Rec #: [id number] Physician: ZINA STEELE MD-GAE Financial #: [id number] Pt. Type: O Room/Bed: [facility] [place] Admit/Disch: 05/25/18 12:46:00 - 05/25/18 16:10:00 Institution: [facility] PACU Case Times Entry 1 In PACU I 05/25/18 15:03:00 Ready for PACU 05/25/18 16:16:00 Discharge Discharge from PACU 05/25/18 16:16:00 Kath Shah PACU Case Times Audit 05/25/18 16:17:31 Sewer Hand: [id number] Modifier: [id number] <+> 1 Ready for PACU Discharge <+> 1 Discharge from PACU I Finalized By: Nely Vitale Rn Document Signatures Signed By: Nely Vitale Rn 05/25/18 16:17 documented in this encounter Plan of Treatment Not on file documented as of this encounter Visit Diagnoses Not on filedocumented in this encounter
--- OUTSIDE RECORDS SUMMARY | 2024-08-27 11:27 | XMS_ITS | Encounter Summary ---
Author Organization [employer] Address [address] [place] [address] Care Team Providers Care Refrigerating Technician Name Role Phone Unavailable Primary Care Provider Unavailabl e Encounter Details Date Type Department Care Team (Late st Contact Info) Description 05/25/2018 Transcribed Document [facility] [place] [address] ProviderLeyda MD [address] [place] [id number] Social History Tobacco Use Types Packs/Day Years Used Date Smoking Tobacco: Never Assessed Comments Unknown Sex and Gender Information Value Date Recorded Sex Assigned at Not on file Legal Sex Female 6:21 PM CDT Gender Identity Not on file Sexual Orientation Not on file documented as of this encounter Miscellaneous Notes * Cerner Conversion Note - Leyda ProviderMD - 05/25/2018 3:50 PM CDT Nursing Discharge Summary Entered On: 05/25/2018 15:52 EDT Performed On: 05/25/2018 15:50 EDT by Nely Vitale Rn Discharge Documentation Discharge Date/Time : 05/25/2018 15:50 EDT Patient Disposition, General : Discharge Discharge To : Home without planned follow-up IV Discontinued : Yes Personal Belongings With Patient : Yes Prescriptions Given to Patient : Yes Discharge Instructions Reviewed With, Opportunity For Questions Given : Patient, Spouse Patient Education Completed : Yes Number of Prescriptions Given : 3 Teaching Method : Explanation Teaching Evaluation : Verbalizes understanding Education Comment : Start low FODMAP Diet Nely Vitale Rn - 05/25/2018 15:50 EDT documented in this encounter Plan of Treatment Not on file documented as of this encounter Visit Diagnoses Not on filedocumented in this encounter
--- OUTSIDE RECORDS SUMMARY | 2024-08-27 11:27 | XMS_ITS | Encounter Summary ---
Author Organization [employer] [facility] [employer] Address [address] [place] [address] Care Team Providers Care Auto Porter Name Role Phone Unavailable Primary Care Provider Unavailabl e Encounter Details Date Type Department Care Team (Late st Contact Info) Description 05/25/[address] [facility] Formerly [facility] [place] [address] ProviderLeyda MD [address] [place] [id number] Social History Tobacco Use Types Packs/Day Years Used Date Smoking Tobacco: Never Assessed Comments Unknown Sex and Gender Information Value Date Recorded Sex Assigned at Not on file Legal Sex Female 6:21 PM CDT Gender Identity Not on file Sexual Orientation Not on file documented as of this encounter Miscellaneous Notes * Cerner Conversion Note - Leyda Clark MD - 05/25/2018 3:23 PM CDT [place] [id number] [facility] [place] [address] Patient Copy Patient Information: Name: MELINDA APONTE Current Date: 05/25/2018 15:23:27 : 1975 Patient Address: [employer] [address] [employer] [facility] [id number] Patient Attending Physician: ZINA STEELE MD-BETI Primary Care Provider: Bill Lamar MD Primary Care Provider Discharge Diagnosis: 1:Epigastric pain Weight on Admission: 170 lb, 2 oz Comment: Follow-up Instructions: With: Address: When: Z[address] [place] [phone] Business (1) Within As needed Comments: review instructions given for recommendations. Discharge Instructions: Diet after Discharge: Regular diet as tolerated Activity after Discharge: Rest and relax today, No strenuous activities, No heavy lifting over 10 pounds Driving after Discharge: Do not drive May Return to Work/School: return to normal activity Showering/Bathing: May shower Immunizations Documented During Stay: No Immunizations Found Heart Failure Discharge Instructions (if any): Stroke Related Discharge Instructions (if any): Warfarin Related Discharge Instructions (if any): Final Medication List: Printed Prescriptions omeprazole (omeprazole 40 mg oral delayed release capsule) 1 Capsule(s) Oral Every Day for 30 Day(s). before a meal. Refills: 4. Other Medications estradiol 2 Milligram(s) Oral Every Day. Patient Allergies: LaMICtal Medication Instructions: Take your medications faithfully. Do NOT skip [...] cramping, rapid heartbeat, difficulty sleeping, and nervousness. Patient education materials: Diverticulosis Diverticulosis is the condition that develops when small pouches (diverticula) form in the wall of your colon. Your colon, or large intestine, is where water is absorbed and stool is formed. The pouches form when the inside layer of your colon pushes through weak spots in the outer layers of your colon. CAUSES No one knows exactly what causes diverticulosis. RISK FACTORS ??? Being older than 50. Your risk for this condition increases with age. Diverticulosis is rare in people younger than 40 years. By age 80, almost everyone has it. ??? Eating a low-fiber diet. ??? Being frequently constipated. ??? Being overweight. ??? Not getting enough exercise. ??? Smoking. ??? Taking uyai-fmf-wovpktp pain medicines, like aspirin and ibuprofen. SYMPTOMS Most people with diverticulosis do not have symptoms. DIAGNOSIS Because diverticulosis often has no symptoms, health care providers often discover the condition during an exam for other colon problems. In many cases, a health care provider will diagnose diverticulosis while using a flexible scope to examine the colon (colonoscopy). TREATMENT If you have never developed an infection related to diverticulosis, you may not need treatment. If you have had an infection before, treatment may include: ??? Eating more fruits, vegetables, and grains. ??? Taking a fiber supplement. ??? Taking a live bacteria supplement (probiotic). ??? Taking medicine to relax your colon. HOME CARE INSTRUCTIONS ??? Drink at least 6?8 glasses of water each day to prevent constipation. ??? Try not to strain when you have a bowel movement. ??? Keep all follow-up appointments. If you have had an infection before:? Increase the fiber in your diet as directed by your health care provider or dietitian. ??? Take a dietary fiber supplement if your health care provider approves. ??? Only take medicines as directed by your health care provider. SEEK MEDICAL CARE IF: ??? You have abdominal pain. ??? You have bloating. ??? You have cramps. ??? You have not gone to the bathroom in 3 days. SEEK IMMEDIATE MEDICAL CARE IF: ??? Your pain gets worse. ??? Your?bloating becomes very bad. ??? You have a fever or chills, and your symptoms suddenly get worse. ??? You begin vomiting. ??? You have bowel movements that are bloody or black. MAKE SURE YOU: ??? Understand these instructions. ??? Will watch your condition. ??? Will get help right away if you are not doing well or get worse. This information is not intended to replace advice given to you by your health care provider. Make sure you discuss any questions you have with your health care provider. Document Released: 11/18/2004 Document Revised: 02/26/2014 Document Reviewed: 01/16/2014 [email or web address] Interactive Patient Education ? 2017 [employer]. Colonoscopy, Adult, Care After This sheet gives you information about how to care for yourself after your procedure. Your health care provider may also give you more specific instructions. If you have problems or questions, contact your health care provider. What can I expect after the procedure? After the procedure, it is common to have: ??? A small amount of blood in your stool for 24 hours after the procedure. ??? Some gas. ??? Mild abdominal cramping or bloating. Follow these instructions at home: General instructions ??? For the first 24 hours after the procedure: ? Do notdrive or use machinery. ? Do notsign important documents. ? Do not drink alcohol. ? Do your regular daily activities at a slower pace than normal. ? Eat soft, olxs-at-aypewi foods. ? Rest often. ??? Take ccbc-fez-gkykkxq or prescription medicines only as told by your health care provider. ??? It is up to you to get the results of your procedure. Ask your health care provider, or the department performing the procedure, when your results will be ready. Relieving cramping and bloating??? Try walking around when you have cramps or feel bloated. ??? Apply heat to your abdomen as told by your health care provider. Use a heat source that your health care provider recommends, such as a moist heat pack or a heating pad. ? Place a towel between your skin and the heat source. ? Leave the heat on for 20?30 minutes. ? Remove the heat if your skin turns bright red. This is especially important if you are unable to feel pain, heat, or cold. You may have a greater risk of getting burned. Eating and drinking ??? Drink enough fluid to keep your urine clear or pale yellow. ??? Resume your normal diet as instructed by your health care provider. Avoid heavy or fried foods that are hard to digest. ??? Avoid drinking alcohol for as long as instructed by your health care provider. Contact a health care provider if: ??? You have blood in your stool 2?3 days after the procedure. Get help right away if: ??? You have more than a small spotting of blood in your stool. ??? You pass large blood clots in your stool. ??? Your abdomen is swollen. ??? You have nausea or vomiting. ??? You have a fever. ??? You have increasing abdominal pain that is not relieved with medicine. This information is not intended to replace advice given to you by your health care provider. Make sure you discuss any questions you have with your health care provider. Document Released: 10/05/2004 Document Revised: 11/15/2016 Document Reviewed: 05/04/2016 [email or web address] Interactive Patient Education ? 2017 [email or web address] Hiatal Hernia A hiatal hernia occurs when part of your stomach slides above the muscle that separates your abdomen from your chest (diaphragm). You can be born with a hiatal hernia (congenital), or it may develop over time. In almost all cases of hiatal hernia, only the top part of the stomach pushes through. Many people have a hiatal hernia with no symptoms. The larger the hernia, the more likely that you will have symptoms. In some cases, a hiatal hernia allows stomach acid to flow back into the tube that carries food from your mouth to your stomach (esophagus). This may cause heartburn symptoms. Severe heartburn symptoms may mean you have developed a condition called gastroesophageal reflux disease (GERD). CAUSES Hiatal hernias are caused by a weakness in the opening (hiatus) where your esophagus passes through your diaphragm to attach to the upper part of your stomach. You may be born with a weakness in your hiatus, or a weakness can develop. RISK FACTORS Older age is a major risk factor for a hiatal hernia. Anything that increases pressure on your diaphragm can also increase your risk of a hiatal hernia. This includes: ??? . ??? Excess weight. ??? Frequent constipation. SIGNS AND SYMPTOMS People with a hiatal hernia often have no symptoms. If symptoms develop, they are almost always caused by GERD. They may include: ??? Heartburn. ??? Belching. ??? Indigestion. ??? Trouble swallowing. ??? Coughing or wheezing.? Sore throat. ??? Hoarseness. ??? Chest pain. DIAGNOSIS A hiatal hernia is sometimes found during an exam for another problem. Your health care provider may suspect a hiatal hernia if you have symptoms of GERD. Tests may be done to diagnose GERD. These may include: ??? X-rays of your stomach or chest. ??? An upper gastrointestinal (GI) series. This is an X-ray exam of your GI tract involving the use of a chalky liquid that you swallow. The liquid shows up clearly on the X-ray. ??? Endoscopy. This is a procedure to look into your stomach using a thin, flexible tube that has a tiny camera and light on the end of it. TREATMENT If you have no symptoms, you may not need treatment. If you have symptoms, treatment may include: ??? Dietary and lifestyle changes to help reduce GERD symptoms. ??? Medicines. These may include: ? Ewkg-kcj-redoane antacids. ? Medicines that make your stomach empty more quickly. ? Medicines that block the production of stomach acid (H2 blockers). ? Stronger medicines to reduce stomach acid (proton pump inhibitors). ??? You may need surgery to repair the hernia if other treatments are not helping. HOME CARE INSTRUCTIONS ??? Take all medicines as directed by your health care provider. ??? Quit smoking, if you smoke. ??? Try to achieve and maintain a healthy body weight. ??? Eat frequent small meals instead of three large meals a day. This keeps your stomach from getting too full. ? Eat slowly. ? Do notlie down right after eating.? ? Do not?eat 1?2 hours before bed. ? Do notdrink beverages with caffeine. These include cola, coffee, cocoa, and tea. ??? Do notdrink alcohol. ??? Avoid foods that can make symptoms of GERD worse. These may include: ? Fatty foods. ? [place] fruits. ? Other foods and drinks that contain acid. ??? Avoid putting pressure on your belly. Anything that puts pressure on your belly increases the amount of acid that may be pushed up into your esophagus. ? ? Avoid bending over, especially after eating. ? Raise the head of your bed by putting blocks under the legs. This keeps your head and esophagus higher than your stomach. ? Do notwear tight clothing around your chest or stomach. ? Try not to strain when having a bowel movement, when urinating, or when lifting heavy objects. SEEK MEDICAL CARE IF: ??? Your symptoms are not controlled with medicines or lifestyle changes. ??? You are having trouble swallowing. ??? You have coughing or wheezing that will not go away. SEEK IMMEDIATE MEDICAL CARE IF: ??? Your pain is getting worse. ??? Your pain spreads to your arms, neck, jaw, teeth, or back. ??? You have shortness of breath. ??? You sweat for no reason. ??? You feel sick to your stomach (nauseous) or vomit. ??? You vomit blood. ??? You have bright red blood in your stools. ??? You have black, tarry stools. ? This information is not intended to replace advice given to you by your health care provider. Make sure you discuss any questions you have with your health care provider. Document Released: 05/13/2004 Document Revised: 06/14/2016 Document Reviewed: 02/08/2014 [email or web address] Interactive Patient Education ? 2017 [email or web address] Gastric Polyps A gastric polyp, also called a stomach polyp, is a growth on the lining of the stomach. Most polyps are not dangerous, but some can be harmful because of their size, location, or type. Polyps that can become harmful include: ??? Large polyps. These can turn into sores (ulcers). Ulcers can lead to stomach bleeding. ??? Polyps that block food from moving from the stomach to the small intestine (gastric outlet obstruction). ??? A type of polyp called an adenoma. This type of polyp can become cancerous. What are the causes? Gastric polyps form when the lining of the stomach gets inflamed or damaged. Stomach inflammation and damage may be caused by: ??? A long-lasting stomach condition, such as gastritis. ??? Certain medicines used to reduce stomach acid. ??? An inherited condition called familial adenomatous polyposis. What are the signs or symptoms? Usually, this condition does not cause any symptoms. If you do have symptoms, they may include: ??? Pain or tenderness in the abdomen. ??? Nausea. ??? Trouble eating or swallowing. ??? Blood in the stool. ??? Anemia. How is this diagnosed? Gastric polyps are diagnosed with: ??? A medical procedure called endoscopy. ??? A lab test in which a part of the polyp is examined. This test is done with a sample of polyp tissue (biopsy) taken during an endoscopy. How is this treated? Treatment depends on the type, location, and size of the polyps. Treatment may involve: ??? Having the polyps checked regularly with an endoscopy. ??? Having the polyps removed with an endoscopy. This may be done if the polyps are harmful or can become harmful. Removing a polyp often prevents problems from developing. ??? Having the polyps removed with a surgery called a partial gastrectomy. This may be done in rare cases to remove very large polyps. ??? Treating the underlying condition that caused the polyps. Follow these instructions at home: ??? Take tddl-vjp-xwypyqw and prescription medicines only as told by your health care provider. ??? Keep all follow-up visits as told by your health care provider. This is important. Contact a health care provider if: ??? You develop new symptoms. ??? Your symptoms get worse. Get help right away if: ??? You vomit blood. ??? You have severe abdominal pain. ??? You cannot eat or drink. ??? You have blood in your stool. This information is not intended to replace advice given to you by your health care provider. Make sure you discuss any questions you have with your health care provider. Document Released: 02/07/2013 Document Revised: 07/12/2016 Document Reviewed: 03/07/2016 [email or web address] Interactive Patient Education ? 2017 [email or web address] Silveira Esophagus Introduction Silveira esophagus occurs when the tissue that lines the esophagus changes or becomes damaged. The esophagus is the tube that carries food from the throat to the stomach. With Silveira esophagus, the cells that line the esophagus are replaced by cells that are similar to the lining of the intestines (intestinal metaplasia). Silveira esophagus itself may not cause any symptoms. However, many people who have Silveira esophagus also have gastroesophageal reflux disease (GERD), which may cause symptoms such as heartburn. Treatment may include medicines, procedures to destroy the abnormal cells, or surgery. Over time, a few people with this condition may develop cancer of the esophagus. What are the causes? The exact cause of this condition is not known. In some cases, the condition develops from damage to the lining of the esophagus caused by GERD. GERD occurs when stomach acids flow up from the stomach into the esophagus. Frequent symptoms of GERD may cause intestinal metaplasia or cause cell changes (dysplasia). What increases the risk? The following factors may make you more likely to develop this condition: ??? Having GERD. ??? Being any of the following:? Male. ? White (). ? Obese. ? Older than 50. ??? Having a hiatal hernia. ??? Smoking. What are the signs or symptoms? People with Silveira esophagus often have no symptoms. However, many people with this condition also have GERD. Symptoms of GERD may include: ??? Heartburn. ??? Difficulty swallowing. ??? Dry cough. How is this diagnosed? Silveira esophagus may be diagnosed with an exam called an upper gastrointestinal endoscopy. During this exam, a thin, flexible tube (endoscope) is passed down your esophagus. The endoscope has a light and camera on the end of it. Your health care provider uses the endoscope to view the inside of your esophagus. During the exam, several tissue samples will be removed (biopsy) from your esophagus so they can be checked for intestinal metaplasia or dysplasia. How is this treated? Treatment for this condition may include: ??? Medicines (proton pump inhibitors, or PPIs) to decrease or stop GERD. ??? Periodic endoscopic exams to make sure that cancer is not developing. ??? A procedure or surgery for dysplasia. This may include:? Endoscopic removal or destruction of abnormal cells. ? Removal of part of the esophagus (esophagectomy). Follow these instructions at home: Eating and drinking??? Eat more fruits and vegetables. ??? Avoid fatty foods. ??? Eat small, frequent meals instead of large meals. ??? Avoid foods that cause heartburn. These foods include:? Coffee and alcoholic drinks. ? Tomatoes and foods made with tomatoes. ? [place] or spicy foods. ? Chocolate and peppermint. General instructions ??? Take crvh-shs-lcslcug and prescription medicines only as told by your health care provider. ??? Do notuse any tobacco products, such as cigarettes, chewing tobacco, and e-cigarettes. If you need help quitting, ask your health care provider. ??? If your health care provider is treating you for GERD, make sure you follow all instructions and take medicines as directed. ??? Keep all follow-up visits as told [...] stool (feces) is bright red or dark. This information is not intended to replace advice given to you by your health care provider. Make sure you discuss any questions you have with your health care provider. Document Released: 05/13/2004 Document Revised: 07/29/2016 Document Reviewed: 12/04/2015 ? 2017 [employer] Esophagogastroduodenoscopy, Care After Introduction Refer to this sheet in the next few weeks. These instructions provide you with information about caring for yourself after your procedure. Your health care provider may also give you more specific instructions. Your treatment has been planned according to current medical practices, but problems sometimes occur. Call your health care provider if you have any problems or questions after your procedure. What can I expect after the procedure? After the procedure, it is common to have:??? A sore throat. ??? Nausea. ??? Bloating. ??? Dizziness. ??? Fatigue. Follow these instructions at home: ??? Do noteat or drink anything until the numbing medicine (local anesthetic) has worn off and your gag reflex has returned. You will know that the local anesthetic has worn off when you can swallow comfortably. ??? Do notdrive for 24 hours if you received a medicine to help you relax (sedative). ??? If your health care provider took a tissue sample for testing during the procedure, make sure to get your test results. This is your responsibility. Ask your health care provider or the department performing the test when your results will be ready. ??? Keep all follow-up visits as told by your health care provider. This is important. Contact a health care provider if: ??? You cannot stop coughing. ??? You are not urinating. ??? You are urinating less than usual. Get help right away if: ??? You have trouble swallowing. ??? You cannot eat or drink. ??? You have throat or chest pain that gets worse. ??? You are dizzy or light-headed. ??? You faint. ??? You have nausea or vomiting. ??? You have chills. ??? You have a fever. ??? You have severe abdominal pain. ??? You have black, tarry, or bloody stools. This information is not intended to replace advice given to you by your health care provider. Make sure you discuss any questions you have with your health care provider. Document Released: 02/07/2013 Document Revised: 07/29/2016 Document Reviewed: 01/15/2016 ? 2017 [employer] Medication Leaflets: omeprazole (oh MEP ra zol) FIRST Omeprazole, Omeprazole + SyrSpend SF Graciela, PriLOSEC, PriLOSEC OTC What is the most important information I should know about omeprazole? Omeprazole can cause kidney problems. Tell your doctor if you are urinating less than usual, or if you have blood in your urine. Diarrhea may be a sign of a new infection. Call your doctor if you have diarrhea that is watery or has blood in it. Omeprazole may cause new or worsening symptoms of lupus. Tell your doctor if you have joint pain and a skin rash on your cheeks or arms that worsens in sunlight. You may be more likely to have a broken bone while taking this medicine chcf or more than once per day. What is omeprazole? Omeprazole is a proton pump inhibitor that decreases the amount of acid produced in the stomach. Omeprazole is used to treat symptoms of gastroesophageal reflux disease (GERD) and other conditions caused by excess stomach acid. Omeprazole is also used to promote healing of erosive esophagitis (damage to your esophagus caused by stomach acid). Omeprazole may also be given together with antibiotics to treat gastric ulcer caused by infection with Helicobacter pylori (H. pylori). Dbdl-ebe-poxibyn (OTC) omeprazole is used to help control heartburn that occurs 2 or more days per week. This medicine not for immediate relief of heartburn symptoms. OTC omeprazole must be taken on a regular basis for 14 days in a row. Omeprazole may also be used for purposes not listed in this medication guide. What should I discuss with my healthcare provider before taking omeprazole? Heartburn can mimic early symptoms of a heart attack. Get emergency medical help if you have chest pain that spreads to your jaw or shoulder and you feel anxious or light-headed. You should not use omeprazole if you are allergic to it, or if: ? you are also allergic to medicines like omeprazole, such as esomeprazole, lansoprazole, pantoprazole, rabeprazole, Nexium, Prevacid, Protonix, and others; or ?? you also take HIV medication that contains rilpivirine (such as Complera, Edurant, Odefsey, Juluca). Ask a doctor or pharmacist if it is safe for you to use omeprazole if you have other medical conditions, especially: ? trouble or pain with swallowing; ?? bloody or black stools, vomit that looks like blood or coffee grounds; ?? heartburn that has lasted for over 3 months; ?? frequent chest pain, heartburn with wheezing; ?? unexplained weight loss; ?? nausea or vomiting, stomach pain; ?? liver disease; ?? low levels of magnesium in your blood; or ?? osteoporosis or low bone mineral density (osteopenia). You may be more likely to have a broken bone in your hip, wrist, or spine while taking a proton pump inhibitor long-term or more than once per day. Talk with your doctor about ways to keep your bones healthy. Ask a doctor before using this medicine if you are or breast-feeding. Do not give this medicine to a child without medical advice. How should I take omeprazole? Follow all directions on your prescription label and read all medication guides or instruction sheets. Use the medicine exactly as directed. Use Prilosec OTC (rppk-jba-bdkuotv) exactly as directed on the label, or as prescribed by your doctor. Read and carefully follow any Instructions for Use provided with your medicine. Ask your doctor or pharmacist if you do not understand these instructions. Shake the oral suspension (liquid) before you measure a dose. Use the dosing syringe provided, or use a medicine dose-measuring device (not a kitchen spoon). If you cannot swallow a capsule whole, open it and sprinkle the medicine into a spoonful of applesauce. Swallow the mixture right away without chewing. Do not save it for later use. You must dissolve omeprazole powder in a small amount of water. This mixture can either be swallowed or given through a nasogastric (NG) feeding tube using a catheter-tipped syringe. OTC omeprazole should be taken for only 14 days in a row. Allow at least 4 months to pass before you start a new 14-day course of treatment. Use this medicine for the full prescribed length of time, even if your symptoms quickly improve. Call your doctor if your symptoms do not improve, or if they get worse. Some conditions are treated with a combination of omeprazole and antibiotics. Use all medications as directed. This medicine can affect the results of certain medical tests. Tell any doctor who treats you that you are using omeprazole. Store at room temperature away from moisture and heat. What happens if I miss a dose? Take the medicine as soon as you can, but skip the missed dose if it is almost time for your next dose. Do not take two doses at one time. What happens if I overdose? Seek emergency medical attention or call the Poison Help line at . What should I avoid while taking omeprazole? This medicine can cause diarrhea, which may be a sign of a new infection. If you have diarrhea that is watery or bloody, call your doctor before using anti-diarrhea medicine. What are the possible side effects of omeprazole? Get emergency medical help if you have signs of an allergic reaction: hives; difficulty breathing; swelling of your face, lips, tongue, or throat. Stop using omeprazole and call your doctor at once if you have: ? severe stomach pain, diarrhea that is watery or bloody; ?? new or unusual pain in your wrist, thigh, hip, or back; ?? seizure (convulsions); ?? kidney problems--little or no urination, blood in your urine, swelling, rapid weight gain; ?? low magnesium--dizziness, fast or irregular heart rate, tremors (shaking) or jerking muscle movements, feeling jittery, muscle cramps, muscle spasms in your hands and feet, cough or choking feeling; or ?? new or worsening symptoms of lupus--joint pain, and a skin rash on your cheeks or arms that worsens in sunlight. Taking omeprazole long-term may cause you to develop stomach growths called fundic gland polyps. Talk with your doctor about this risk. If you use omeprazole for longer than 3 years, you could develop a vitamin B-12 deficiency. Talk to your doctor about how to manage this condition if you develop it. Common side effects may include: ? stomach pain, gas; ?? nausea, vomiting, diarrhea; or ?? headache. This is not a complete list of side effects and others may occur. Call your doctor for medical advice about side effects. You may report side effects to FDA at 8-661-RUH-7146. What other drugs will affect omeprazole? Sometimes it is not safe to use certain medications at the same time. Some drugs can affect your blood levels of other drugs you take, which may increase side effects or make the medications less effective. Tell your doctor about all your current medicines. Many drugs can affect omeprazole, especially: ? clopidogrel; ?? methotrexate; ?? Luis A's wort; or ?? an antibiotic--amoxicillin, clarithromycin, rifampin. This list is not complete and many other drugs may affect omeprazole. This includes prescription and gahe-nil-iudjzrk medicines, vitamins, and herbal products. Not all possible drug interactions are listed here. Where can I get more information? Your pharmacist can provide more information about omeprazole. Remember, keep this and all other medicines out of the reach of children, never share your medicines with others, and use this medication only for the indication prescribed. Every effort has been made to ensure that the information provided by [facility] ('[employer]') is accurate, up-to-date, and complete, but no guarantee is made to that effect. Drug information contained herein may be time sensitive. [employer] information has been compiled for use by healthcare practitioners and consumers in the [place] and therefore [employer] does not warrant that uses outside of the [place] are appropriate, unless specifically indicated otherwise. [employer] drug information does not endorse drugs, diagnose patients or recommend therapy. [employer] drug information is an informational resource designed [...] effective or appropriate for any given patient. [facility] does not assume any responsibility for any aspect of healthcare administered with the aid of information [facility] provides. The information contained herein is not intended to cover all possible uses, directions, precautions, warnings, drug interactions, allergic reactions, or adverse effects. If you have questions about the drugs you are taking, check with your doctor, nurse or pharmacist. Copyright 2855-1170 [facility]. Version: 19.01. Revision Date: 08/29/2017. CIGARETTE SMOKING: The facts are clear, cigarette smoking will shorten your life. Smoking can cause many illnesses along the way. As a healthcare provider, we recommend that you stop smoking. Assistance with quitting is available by contacting 2-732-GHXX-NOW. This is a free resource providing counseling, support, and referral. Or you may contact your personal physician. 4 WAYS TO GET AHEAD OF SEPSIS SEPSIS is a MEDICAL EMERGENCY. Time matters! Infections put you and your family at risk for a life-threatening condition called sepsis. Sepsis is the body???s extreme response to an infection. It is life-threatening, and without timely treatment, sepsis can rapidly lead to tissue damage, organ failure, and . Sepsis happens when an infection you already have???in your skin, lungs, urinary tract or somewhere else???triggers a chain reaction throughout your body. 1 [...] sepsis or if you have an infection that???s not getting better or is getting worse. To learn more about sepsis and how to prevent infections, visit www.cdc.gov/sepsis. STROKE is an EMERGENCY [employer] F.A.S.T! FACE ?? Facial droop ?? Uneven smile ARM ?? Arm numbness ?? Arm weakness SPEECH ?? Slurred speech ?? Difficulty speaking or understanding TIME ?? Call 911 and get to the hospital immediately Have the ambulance go to the nearest stroke center. STROKE Risk Factors High blood pressure High cholesterol Heart Disease Diabetes Smoking Heavy alcohol use Physical inactivity and obesity Atrial Fibrillation (irregular heartbeat) Family history of stroke Reminder: Be sure to sign up for the My [facility] patient portal, which gives you 27/09 access to your medical information ??? including these discharge instructions ??? using your computer, smartphone, or tablet. Just go to [employer] to get started. Questions? Call . [facility] would like to thank you for allowing us to assist you with your healthcare needs. HECTOR [place] [employer]ANNON [employer], (or advertising sales representative) have received the above patient education materials/instructions and have verbalized understanding: Patient Signature _ Date/Time Patient Paint Mixer Hand Signature (if needed) Date/Time Clinician/Hospital Paint Mixer Hand Signature (if needed) Date/Time documented in this encounter Plan of Treatment Not on file documented as of this encounter Visit Diagnoses Not on filedocumented in this encounter
--- OUTSIDE RECORDS SUMMARY | 2024-08-27 11:27 | XMS_ITS | Encounter Summary ---
Author Organization [employer] Address [address] [place] [address] Care Team Providers Care Bander Hand Name Role Phone Unavailable Primary Care Provider Unavailabl e Encounter Details Date Type Department Care Team (Late st Contact Info) Description 05/25/2018 Transcribed Document [facility] [place] Family Medicine [address] [place] [address] ProviderLeyda MD [facility] [place], [place] [id number] Social History Tobacco Use Types Packs/Day Years Used Date Smoking Tobacco: Never Assessed Comments Unknown Sex and Gender Information Value Date Recorded Sex Assigned at Not on file Legal Sex Female 6:21 PM CDT Gender Identity Not on file Sexual Orientation Not on file documented as of this encounter Miscellaneous Notes * Cerner Conversion Note - Historical ProviderMD - 05/25/2018 3:15 PM CDT Discharge Instructions Entered On: 05/25/2018 15:16 EDT Performed On: 05/25/2018 15:15 EDT by Nely Vitale Rn DC Instructions HWD Stroke/TIA Discharge Ins : N/A Heart Failure Discharge Ins : N/A Warfarin Discharge Ins : N/A Diet After Discharge : Regular diet as tolerated Activity After Discharge : Rest and relax today, No strenuous activities, No heavy lifting over 10 pounds Driving After Discharge : Do not drive May Return To Work/School : return to normal activity Showering/Bathing : May shower Nely Vitale Rn - 05/25/2018 15:15 EDT Electronically signed by Ernesto Betancourt Conversion [employer] Tree Farm Manager Hali at 06/22/2022 9:26 AM CDT documented in this encounter Plan of Treatment Not on file documented as of this encounter Visit Diagnoses Not on filedocumented in this encounter
--- OUTSIDE RECORDS SUMMARY | 2024-08-27 11:27 | XMS_ITS | Encounter Summary ---
Author Organization [employer] Address [address] [place] [address] Care Team Providers Care Olive Picker Name Role Phone Unavailable Primary Care Provider Unavailabl e Encounter Details Date Type Department Care Team (Late st Contact Info) Description 05/25/2018 Transcribed Document [facility] [place] Medicine [facility] [place] [address] ProviderLeyda MD [address] [place] [id number] Social History Tobacco Use Types Packs/Day Years Used Date Smoking Tobacco: Never Assessed Comments Unknown Sex and Gender Information Value Date Recorded Sex Assigned at Not on file Legal Sex Female 6:21 PM CDT Gender Identity Not on file Sexual Orientation Not on file documented as of this encounter Miscellaneous Notes * Cerner Conversion Note - Leyda ProviderMD - 05/25/2018 3:22 PM CDT Nursing Discharge Summary Entered On: 05/25/2018 15:23 EDT Performed On: 05/25/2018 15:22 EDT by Nely Vitale Rn Discharge Documentation Discharge Date/Time : 05/25/2018 15:22 EDT Patient Disposition, General : Discharge Discharge To : Home without planned follow-up Accompanied By, Discharge : Spouse IV Discontinued : Yes Personal Belongings With Patient : Yes Prescriptions Given to Patient : Yes Discharge Instructions Reviewed With, Opportunity For Questions Given : Patient, Spouse Patient Education Completed : Yes Number of Prescriptions Given : 1 Teaching Method : Explanation Teaching Evaluation : Verbalizes understanding Nely Vitale Rn - 05/25/2018 15:22 EDT Electronically signed by Ernesto Betancourt Conversion [place] Department Manager Cerner at 06/22/2022 9:16 AM CDT documented in this encounter Plan of Treatment Not on file documented as of this encounter Visit Diagnoses Not on filedocumented in this encounter
--- OUTSIDE RECORDS SUMMARY | 2024-08-27 11:27 | XMS_ITS | Encounter Summary ---
Author Organization [employer] Address [address] [place] [address] Care Team Providers Care Worship Leader Name Role Phone Unavailable Primary Care Provider Unavailabl e Encounter Details Date Type Department Care Team (Late st Contact Info) Description 05/25/2018 Transcribed Document [facility] [place] [address] ProviderLeyda MD [address] [place] [id number] Social History Tobacco Use Types Packs/Day Years Used Date Smoking Tobacco: Never Assessed Comments Unknown Sex and Gender Information Value Date Recorded Sex Assigned at Not on file Legal Sex Female 6:21 PM CDT Gender Identity Not on file Sexual Orientation Not on file documented as of this encounter Miscellaneous Notes * Cerner Conversion Note - Leyda Clark MD - 05/25/2018 3:53 PM CDT [place] [address] [facility] [place] [address] Patient Copy Patient Information: Name: MELINDA APONTE Current Date: 05/25/2018 15:53:57 : 1975 Patient Address: [facility] [address] [facility] [address] Patient Attending Physician: ZINA STEELE MD-BETI Primary Care Provider: Bill Lamar MD Primary Care Provider Discharge Diagnosis: 1:Epigastric pain Weight on Admission: 170 lb, 2 oz Comment: Follow-up Instructions: With: Address: When: ZINA [address] [place] [address] Business (1) Within As needed Comments: review instructions given for recommendations. Office will call for Manometry esophageal test. Discharge Instructions: Diet after Discharge: Regular diet [...] (if any): Final Medication List: Printed Prescriptions hyoscyamine (Levsin SL 0.125 mg sublingual tablet) 1 Tablet(s) SubLINgual Four Times A Day for 30 Day(s). prn pain Take UP TO 4 tablets a day.. Refills: 0. linaclotide (Linzess 72 mcg oral capsule) 1 Capsule(s) Oral Every Day for 30 Day(s). Prn constipation. Refills: 4. omeprazole (omeprazole 40 mg oral delayed release [...] getting enough exercise. ??? Smoking. ??? Taking lmyj-gif-xtvbxfx pain medicines, like aspirin and ibuprofen. SYMPTOMS [...] 11/18/2004 Document Revised: 02/26/2014 Document Reviewed: 01/16/2014 [facility] Interactive Patient Education ? 2017 [employer]. Colonoscopy, Adult, Care After This sheet gives [...] slower pace than normal. ? Eat soft, xwxy-hr-nmvmlz foods. ? Rest often. ??? Take pqxy-vwm-dteiqwz or prescription medicines only as told by [...] 10/05/2004 Document Revised: 11/15/2016 Document Reviewed: 05/04/2016 [facility] Interactive Patient Education ? 2017 [facility] [facility] [employer] Hiatal Hernia A hiatal hernia occurs [...] symptoms. ??? Medicines. These may include: ? Zvkf-ngb-wcxlnnp antacids. ? Medicines that make your stomach [...] These may include: ? Fatty foods. ? [place] fruits. ? Other foods and drinks that [...] 05/13/2004 Document Revised: 06/14/2016 Document Reviewed: 02/08/2014 [facility] Interactive Patient Education ? 2017 [facility] [employer] Gastric Polyps A gastric polyp, also [...] Follow these instructions at home: ??? Take rfgz-gtf-kfpmzqz and prescription medicines only as told by [...] 02/07/2013 Document Revised: 07/12/2016 Document Reviewed: 03/07/2016 [employer] Interactive Patient Education ? 2017 [facility] 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 ? [place] or spicy foods. ? Chocolate and peppermint. General instructions ??? Take qvgv-uuo-pjblooc and prescription medicines only as told by [...] Revised: 07/29/2016 Document Reviewed: 01/15/2016 ? 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 What [...] by infection with Helicobacter pylori (H. pylori). Yzsv-dsy-audrnax (OTC) omeprazole is used to help control [...] medicine exactly as directed. Use Prilosec OTC (ublu-exj-arscelj) exactly as directed on the label, or [...] may report side effects to FDA at 6-931-VWA-9539. What other drugs will affect omeprazole? Sometimes it is not safe to use certain medications at the same time. Some drugs can affect your blood levels of other drugs you take, which may increase side effects or make the medications less effective. Tell your doctor about all your current medicines. Many drugs can affect omeprazole, especially: ? clopidogrel; ?? methotrexate; ?? [place]'s wort; or ?? an antibiotic--amoxicillin, clarithromycin, rifampin. This list is not complete and many other drugs may affect omeprazole. This includes prescription and kyqb-xhr-ijaogid medicines, vitamins, and herbal products. Not all [...] to ensure that the information provided by [employer]. ('[employer]') is accurate, up-to-date, and complete, but no guarantee is made to that effect. Drug information contained herein may be time sensitive. [employer] information has been compiled for use by healthcare practitioners and consumers in the [place] and therefore [employer] does not warrant that uses outside of the [place] are appropriate, unless specifically indicated otherwise. [employer]'s drug information does not endorse drugs, diagnose patients or recommend therapy. [employer] drug information is an informational resource designed [...] effective or appropriate for any given patient. [facility] does not assume any responsibility for any aspect of healthcare administered with the aid of information [facility] provides. The information contained herein is not intended to cover all possible uses, directions, precautions, warnings, drug interactions, allergic reactions, or adverse effects. If you have questions about the drugs you are taking, check with your doctor, nurse or pharmacist. Copyright 8612-7489 [employer]. Version: 19.01. Revision Date: 08/29/2017. hyoscyamine (genaro oh NICOLE a anjana) Dorian Cuevas, Hyheron, Monica, Sharansin, NuLev, Symax SR What is the most important information I should know about hyoscyamine? You should not use this medicine if you have urination problems, a stomach or bowel obstruction, severe ulcerative colitis, glaucoma, or myasthenia gravis. What is hyoscyamine? Hyoscyamine is used to treat many different stomach and intestinal disorders, including peptic ulcer and irritable bowel syndrome. It is also used to control muscle spasms in the bladder, kidneys, or digestive tract, and to reduce stomach acid. Hyoscyamine is sometimes used to reduce tremors and rigid muscles in people with symptoms of Parkinson's disease. Hyoscyamine is also used as a drying agent to control excessive salivation, runny nose, or excessive sweating. Hyoscyamine may also be used for purposes not listed in this medication guide. What should I discuss with my healthcare provider before taking hyoscyamine? You should not use hyoscyamine if you are allergic to it, or if you have: ? a bladder obstruction or other urination problems; ?? an enlarged prostate; ?? a stomach or bowel obstruction (including paralytic ileus); ?? severe ulcerative colitis, or toxic megacolon; ?? glaucoma; or ?? myasthenia gravis. Hyoscyamine is not approved for use by anyone younger than 2 years old. Tell your doctor if you have ever had: ? heart problems; ?? high blood pressure; ?? kidney disease; ?? a colostomy or ileostomy; ?? a thyroid disorder; or ?? hiatal hernia with GERD (gastroesophageal reflux disease). It is not known whether this medicine will harm an unborn baby. Tell your doctor if you are or plan to become . It may not be safe to breast-feed while using this medicine. Ask your doctor about any risk. How should I take hyoscyamine? Follow all directions on your prescription label and read all medication guides or instruction sheets. Use the medicine exactly as directed. Always follow directions on the medicine label about giving this medicine to a child. Swallow an extended-release tablet whole and do not crush, chew, or break it. Measure liquid medicine carefully. Use the dosing syringe provided, or use a medicine dose-measuring device (not a kitchen spoon). Remove an orally disintegrating tablet from the package only when you are ready to take the medicine. Place the tablet on your tongue and allow it to dissolve. Swallow several times as the tablet dissolves. You may drink water after the pill has completely dissolved. Store at room temperature away from moisture [...] line at . Overdose symptoms may include headache, dizziness, dry mouth, trouble swallowing, nausea, vomiting, blurred vision, hot dry skin, and feeling restless or nervous. What should I avoid while taking hyoscyamine? Avoid taking antacids at the same time you take hyoscyamine. Antacids can make it harder for your body to absorb hyoscyamine. If you use an antacid, take it after you have taken hyoscyamine and eaten a meal. Drinking alcohol with this medicine can cause side effects. Avoid becoming overheated or dehydrated during exercise and in hot weather. Hyoscyamine can decrease sweating and you may be more prone to heat stroke. Avoid driving or hazardous activity until you know how this medicine will affect you. Your reactions could be impaired. What are the possible side effects of hyoscyamine? Get emergency medical help if you have signs of an allergic reaction: hives; difficult breathing; swelling of your face, lips, tongue, or throat. Stop using hyoscyamine and call your doctor at once if you have: ? anxiety, confusion, hallucinations, unusual thoughts or behavior; ?? weakness, memory problems; ?? slurred speech; ?? problems with balance or muscle movement; ?? diarrhea; o ?? pounding heartbeats or fluttering in your chest. Common side effects may include: ? dizziness, drowsiness, feeling weak or tired; ?? decreased sweating, decreased urination; ?? blurred vision; ?? rash; ?? dry mouth, decreased sense of taste; ?? stomach pain, nausea, vomiting, bloating; ?? diarrhea, constipation; ?? headache; ?? sleep problems (insomnia); or ?? impotence, loss of interest in sex, or trouble having an orgasm. This is not a complete list of side effects and others may occur. Call your doctor for medical advice about side effects. You may report side effects to FDA at 4-180-WGQ-9276. What other drugs will affect hyoscyamine? Tell your doctor about all your other medicines, especially: ? an antidepressant; ?? medicine to treat mental illness; ?? cold or allergy medicine (Benadryl and others); ?? medicine to treat or prevent nausea and vomiting; or ?? an MAO inhibitor--isocarboxazid, linezolid, methylene blue injection, phenelzine, rasagiline, selegiline, tranylcypromine, and others. This list is not complete. Other drugs may affect hyoscyamine, including prescription and bwvc-hcu-yqttxyp medicines, vitamins, and herbal products. Not all possible drug interactions are listed here. Where can I get more information? Your pharmacist can provide more information about hyoscyamine. Remember, keep this and all other medicines out of the reach of children, never share your medicines with others, and use this medication only for the indication prescribed. Every effort has been made to ensure that the information provided by [employer]') is accurate, up-to-date, and complete, but no guarantee is made to that effect. Drug information contained herein may be time sensitive. [employer] information has been compiled for use by healthcare practitioners and consumers in the [place] and therefore [employer] does not warrant that uses outside of the [place] are appropriate, unless specifically indicated otherwise. [employer]'s drug information does not endorse drugs, diagnose patients or recommend therapy. [employer] drug information is an informational resource designed [...] effective or appropriate for any given patient. [employer] does not assume any responsibility for any aspect of healthcare administered with the aid of information [employer] provides. The information contained herein is not intended to cover all possible uses, directions, precautions, warnings, drug interactions, allergic reactions, or adverse effects. If you have questions about the drugs you are taking, check with your doctor, nurse or pharmacist. Copyright 2198-4206 [employer]. Version: 7.01. Revision Date: 01/24/2018. linaclotide (LACEY a KLOE tide) Linzess What is the most important information I should know about linaclotide? You should not use linaclotide if you have a blockage in your intestines. Linaclotide should not be given to a child younger than 6 years old. Linaclotide can cause severe dehydration in a child. What is linaclotide? Linaclotide works by increasing the secretion of chloride and water in the intestines, which can soften stools and stimulate bowel movements. Linaclotide is used to treat chronic constipation, or chronic irritable bowel syndrome (IBS) in people who have had constipation as the main symptom. Linaclotide may also be used for purposes not listed in this medication guide. What should I discuss with my healthcare provider before taking linaclotide? You should not use linaclotide if you are allergic to it, or if you have: ? a blockage in your intestines. Linaclotide can cause severe dehydration in a child. Linaclotide should not be given to a child younger than 6 years old. Do not give this medicine to any child or teenager without the advice of a doctor. It is not known whether linaclotide will harm an unborn baby. Tell your doctor if you are or plan to become while using this medicine. It is not known whether linaclotide passes into breast milk or if it could harm a nursing baby. Tell your doctor if you are breast-feeding a baby. How should I take linaclotide? Follow the directions on your prescription label. Do not take this medicine in larger or smaller amounts or for longer than recommended. Take linaclotide in the morning on an empty stomach, at least 30 minutes before your first meal. Do not crush, chew, or break a linaclotide capsule. Swallow it whole. If you cannot swallow the linaclotide capsule whole, you may open the capsule and sprinkle the medicine into a spoonful of applesauce or bottled water. Swallow the mixture right away without chewing. Do not save it for later use. Even if you have taken this medicine with applesauce, wait at least 30 minutes before eating a full meal. If needed, medicine from the linaclotide capsule may be given through a nasogastric (NG) or gastronomy tube. Read all patient information, medication guides, and instruction sheets provided to you. Carefully follow instructions for mixing medicine from the capsule with applesauce or water, or giving the medicine through a feeding tube. Ask your doctor or pharmacist if you have any questions. It may take up to 2 weeks before your symptoms improve. Keep using the medication as directed. Call your doctor if your symptoms do not improve, or if they get worse while using linaclotide. Store at room temperature away from moisture and heat. Keep this medicine out of the reach of children. Linaclotide can cause severe diarrhea and dehydration in a child who accidentally swallows this medicine. Seek emergency medical attention if this happens. Keep the capsules in their original container, along with the packet of moisture-absorbing preservative that comes with this medicine. Keep the bottle tightly closed when not in use. What happens if I miss a dose? Skip the missed dose and take the medicine at your next regularly scheduled time. Do not take extra medicine to make up the missed dose. What happens if I overdose? Seek emergency medical attention or call the Poison Help line at . What should I avoid while taking linaclotide? Follow your doctor's instructions about any restrictions on food, beverages, or activity. What are the possible side effects of linaclotide? Get emergency medical help if you have any of these signs of an allergic reaction: hives; difficult breathing; swelling of your face, lips, tongue, or throat. Stop using linaclotide and call your doctor at once if you have: ? severe or ongoing diarrhea; ?? diarrhea with dizziness or a light-headed feeling (like you might pass out); ?? signs of an electrolyte imbalance--increased thirst or urination, leg cramps, mood changes, confusion, feeling unsteady, irregular heartbeats, fluttering in your chest, muscle weakness or limp feeling; ?? severe stomach pain; or ?? black, bloody, or tarry stools. Common side effects may include: ? diarrhea; ?? stomach pain; ?? gas; or ?? bloating or full feeling in your stomach. This is not a complete list of side effects and others may occur. Call your doctor for medical advice about side effects. You may report side effects to FDA at 1-702-INL-0183. What other drugs will affect linaclotide? Other drugs may interact with linaclotide, including prescription, ixfe-wxq-avsykta, vitamin, and herbal products. Tell your doctor about all medications you use, and those you start or stop using during your treatment with linaclotide. Where can I get more information? Your pharmacist can provide more information about linaclotide. Remember, keep this and all other medicines out of the reach of children, never share your medicines with others, and use this medication only for the indication prescribed. Every effort has been made to ensure that the information provided by [employer] ('[employer]') is accurate, up-to-date, and complete, but no guarantee is made to that effect. Drug information contained herein may be time sensitive. [employer] information has been compiled for use by healthcare practitioners and consumers in the [place] and therefore [employer] does not warrant that uses outside of the [place] are appropriate, unless specifically indicated otherwise. [employer]'s drug information does not endorse drugs, diagnose patients or recommend therapy. [employer] drug information is an informational resource designed [...] effective or appropriate for any given patient. [facility] does not assume any responsibility for any aspect of healthcare administered with the aid of information [facility] provides. The information contained herein is not intended to cover all possible uses, directions, precautions, warnings, drug interactions, allergic reactions, or adverse effects. If you have questions about the drugs you are taking, check with your doctor, nurse or pharmacist. Copyright 2046-3862 [facility]. Version: 4.02. Revision Date: 11/23/2016. CIGARETTE SMOKING: The facts are clear, cigarette smoking will shorten your life. Smoking can cause many illnesses along the way. As a healthcare provider, we recommend that you stop smoking. Assistance with quitting is available by contacting 1-842-OYLNAtonarpNOW. This is a free resource providing counseling, [...] Be sure to sign up for the [employer] patient portal, which gives you 27/09 access to your medical information ??? including these discharge instructions ??? using your computer, smartphone, or tablet. Just go to [employer] to get started. Questions? Call . [facility] would like to thank you for allowing us to assist you with your healthcare needs. HECTOR [place] SHANNON CRAFT, (or customer account representative) have received the above patient education materials/instructions and have verbalized understanding: Patient Signature _ Date/Time Patient Dude Wrangler Signature (if needed) Date/Time Clinician/Hospital Dude Wrangler Signature (if needed) Date/Time documented in this encounter Plan of Treatment Not on file documented as of this encounter Visit Diagnoses Not on filedocumented in this encounter
--- OUTSIDE RECORDS SUMMARY | 2024-08-27 11:27 | XMS_ITS | Clinical Summary ---
Author Organization [facility] Address [address] [place] [address] Care Team Providers Care Baccarat Dealer Name Role Phone Unavailable Primary Care Provider Unavailabl e Allergies Active Allergy Reactions Criticality Noted Date Comments Lamotrigine Itching 09/16/2023 [place] 09/16/2023 Medications amitriptyline (ELAVIL) 25 MG tablet Take 2 tablets (50 mg total) by mouth. 3 Active hydroxychloroqu ine (PLAQUENIL) 200 mg tablet Take 1 tablet (200 mg total) by mouth daily. 4 Active estradioL (ESTRACE) 2 MG tablet Take 1 tablet (2 mg total) by mouth daily. 4 Active estradioL (VAGIFEM) [address] 1 tablet (10 mcg total) vaginally twice a week. 4 Active famotidine (PEPCID) 40 MG tablet Take 1 tablet (40 mg total) by mouth. 4 Active dexlansoprazole 60 mg capsule Take 1 capsule (60 mg total) by mouth. 4 Active hyoscyamine (LEVSIN/SL) 0.125 mg SL tablet 3 Active magnesium oxide 500 mg Cap Active glucosam/chond/ hyalu/CF borate (MOVE FREE JOINT HEALTH ORAL) Active docusate sodium (COLACE) 100 MG capsule Take 2 capsules (200 mg total) by mouth. Active melatonin 10 mg Chew Active rifAXIMin (Xifaxan) 200 mg tablet Active acetaminophen (8 Hour Pain Reliever) 650 MG CR tablet Take 1 tablet (650 mg total) by mouth. Active bethanechol (URECHOLINE) 25 MG tablet Take 1 tablet (25 mg total) by mouth 3 (three) times daily. Active Linzess 72 mcg Cap Take 1 capsule (72 mcg total) by mouth every morning. Active RABEprazole (ACIPHEX) 20 mg EC tablet Take 1 tablet (20 mg total) by mouth. 09/02/19 Active Active Problems Problem Noted Date Diagnosed Date Hepatitis C virus infection 09/16/202309/04 GERD with esophagitis 09/16/2023 09/16/2023 Dysphasia 09/16/2023 09/16/2023 Constipation 09/16/2023 09/16/2023 Anxiety 09/16/2023 09/16/2023 Raynaud disease 09/01/2023 09/16/2023 Myositis 01/17/2023 09/16/2023 Left bundle branch block (LBBB) 01/17/2023 09/16/2023 Gastroparesis 03/26/2022 09/16/2023 Complex tear of medial menis cus of right knee as current injury 01/19/2022 09/16/2023 Telangiectasias 09/01/2021 09/16/2023 Sleep disturbance 09/01/2021 09/16/2023 Raynaud's phenomenon with gangrene 09/01/2021 09/16/2023 Malaise and fatigue 09/01/2021 09/16/2023 Impaired cognition 09/01/2021 09/16/2023 Dry mouth 09/01/2021 09/16/2023 Calculus of gallbladder 04/01/2021 09/16/19 Silveira's esophagus with dysplasia 01/09/2021 09/16/2023 Social History Tobacco Use Types Packs/Day Years Used Date Smoking Tobacco: Never Smokeless Tobacco: Never Tobacco Cessation:Counseling Given: Not Answered Alcohol Use Standard Drinks/Week Comments Yes 0 (1 standard drink = 0.6 oz pur e alcohol) 3 drinks per week Interpersonal Safety Answer Date Record ed Family or friends hurt you Not on file 03/25 Family or friends insult you Not on file Family or friends threaten you Not on file 0 03/25/2023 Family or friends scream or curse at you Not on file 03/25/2023 Housing Stability Answer Date Recorded Living situation today Not on file Living situation problems Not on file 2023 Food Insecurity Answer Date Recorded Food run out past 12 months Not on file 03/07 Food did not last past 12 months Not on file 03/25/2023 Employment Answer Date Recorded Help finding and keeping a job Not on file 0 03/25/2023 Family and Community Support Answer Ja e Recorded Help with Day to Day Activities Not on file 03/25/2023 Feeling Lonely or Isolated Not on file 03/25 Educational Attainment Answer Date Tyrone rded Speak language other than Beninese at home Not on file 03/25/2023 Want help with school or training Not on file 03/25/2023 Depression Answer Date Recorded PHQ-2 Risk Not on file 03/25/2023 Disabilities Answer Date Recorded Difficulty concentrating Not on file 024 Difficulty doing errands alone Not on file 0 03/25/2023 Substance Use Answer Date Recorded Used prescription meds for non-medical reasons N ot on file 03/25/2023 Used illegal drugs past 12 months Not on file 03/25/2023 Comments No Sex and Gender Information Value Date Recorded Sex Assigned at Not on file Legal Sex Female 6:21 PM CDT Gender Identity Not on file Sexual Orientation Not on file Last Filed Vital Signs Vital Sign Reading Time Taken Comments Blood Pressure 121/72 09/16/2023 2:55 PM EDT Pulse 80 09/16/2023 3:10 PM EDT Temperature 36.4 C (97.5 F) 09/16/2023 9:51 AM EDT Respiratory Rate 20 09/16/2023 3:10 PM EDT Oxygen Saturation 94% 09/16/2023 3:10 PM EDT Inhaled Oxygen Concentration - - Weight 81.6 kg (180 lb) 09/16/2023 9:51 AM EDT Height 154.9 cm (5' 1 ) 09/16/2023 9:51 AM EDT Body Mass Index 34.01 09/16/2023 9:51 AM EDT Plan of Treatment Health Maintenance Due Date Last Done Comments CT Colonography 1973 Colonoscopy 1973 Colorectal Cancer Screening 1973 FOBT/FIT 1973 Fit-DNA (Cologuard) 1973 Sigmoidoscopy 1973 Depression Screening (12+) 1985 HIV Screening 01/31/1988 DTAP/TDAP/TD VACCINES (1 - Tdap) 01/31/1992 Pap Smear 1994 Lipid Panel 2018 Pneumococcal 50+ years (1 of 1 - PCV) 2023 Shingles Vaccine (Zoster) (1 of 2) 2023 COVID-19 VACCINE (6 - 2023-2 5 season) 2023 01/23/2023, 12/12/2021, 07/17/2021, Additional history exists Breast Cancer Screening 04/13/2024 04/13/19, 04/13/2022, 04/13/2022 Tobacco Cessation Counseling and Screening (12+) 09/15/2024 09/16/2023 Influenza Vaccine (Season Ended) 2024 01/24/20, 01/19/2022 Insurance BLUE CROSS/BLUE SHIELD Advance Directives For more information, please contact: [phone] * Full Code (Latest Code Status on File) Date Activated Date Inactivated Comments 09/16/2023 11:46 AM 09/17/2023 4:27 AM
--- OUTSIDE RECORDS SUMMARY | 2024-08-27 11:27 | XMS_ITS | Encounter Summary ---
Author Organization [facility] [employer] Address [address] [place] [address] Care Team Providers Care Flight Surgeon Name Role Phone Unavailable Primary Care Provider Unavailabl e Encounter Details Date Type Department Care Team (Late st Contact Info) Description 05/25/2018 Transcribed Document [facility] [place] Family Medicine [facility] [place] [address] ProviderLeyda MD [facility] [place], [place] [id number] Social History Tobacco Use Types Packs/Day Years Used Date Smoking Tobacco: Never Assessed Comments Unknown Sex and Gender Information Value Date Recorded Sex Assigned at Not on file Legal Sex Female 6:21 PM CDT Gender Identity Not on file Sexual Orientation Not on file documented as of this encounter Miscellaneous Notes * Cerner Conversion Note - Leyda ProviderMD - 05/25/2018 1:11 PM CDT Pre Procedure Adult Entered On: 05/25/2018 13:17 EDT Performed On: 05/25/2018 13:11 EDT by KAMALA MOISE RN Height and Weight, Clinical Dosing Height Source : Stated Height Entry Format : [place] Height, Feet : 5 ft(Converted to: 152 cm, 60 Inch) Height, Inches : 1 Inch(Converted to: 0 ft 1 Inch, 2.54 cm) Clinical Height : 154.94 cm Weight Source : Standing scale Weight Entry Format : [place] Clinical Dosing Weight : 77.33 kg Weight, Pounds : 170 lb Weight, Ounces : 2 oz Body Surface Area (BSA) : 1.77 m2 Body Mass Index : 32.2 kg/m2 (HI) [place] Body Weight : 47 kg KAMALA MOISE RN - 05/25/2018 13:11 EDT Health Histories Smoking Status : Never (less than 100 in lifetime; none in last 30 days) Smokeless Tobacco Status : Never KAMALA MOISE RN - 05/25/2018 13:11 EDT Social History (As Of: 05/25/2018 13:17:04 EDT) Tobacco: Never (less than 100 in lifetime) Smoking Status. Never Smokeless Tobacco Status. (Last Updated: 05/25/2018 13:10:12 EDT by KAMALA MOISE, KOLE) Alcohol: Alcohol Use History Yes. Alcohol Use Frequency Socially. (Last Updated: 05/25/2018 13:10:27 EDT by KAMALA MOISE, RN) Substance Abuse: Drug Use Hx: No. (Last Updated: 05/25/2018 13:10:34 EDT by KAMALA MOISE, RN) Nutrition/Health: Caffeine intake amount: coffee soda daily. (Last Updated: 05/25/2018 13:10:53 EDT by KAMALA MOISE RN) Infectious Disease History Infectious Disease History : Chicken pox/Shingles, Hepatitis C, Influenza Fever/Chills Last 48 Hours : No Travel To Regions with Travel Advisories : No Travel Outside [place] Within Last 30 Days : No Contact With Traveler to Advisory Region : No Tuberculosis Symptoms : None KAMALA MOISE RN - 05/25/2018 13:11 EDT Anesthesia/Transfusion History Family History of Anesthesia Reaction : Prior transfusion without reaction Transfusion History : Prior anesthesia without reaction Family History of Anesthesia Reaction : None KAMALA MOISE RN - 05/25/2018 13:11 EDT Functional Assessment Living Situation : Home Patient Lives With : Spouse Current Home Treatments : None KAMALA MOISE RN - 05/25/2018 13:11 EDT Psychosocial History Do You Have a History of the Following? : Anxiety, Depression Currently in Unsafe Situation : No Tried to Harm Yourself in the Past? : No Thoughts of Harming/Killing Yourself : No KAMALA MOISE RN - 05/25/2018 13:11 EDT Advance Directive Patient has Advance Directive *Q : No, patient refuses Advance Directive information KAMALA MOISE RN - 05/25/2018 13:11 EDT Teaching/Learning Assessment Barriers To Learning : None evident Individuals Taught : Patient Readiness to Learn : Cooperative Baseline Knowledge of Topic : Good Readiness to Learn : Explanation, Printed materials Learning Style Preferences Patient : Printed materials, Verbal explanation KAMALA MOISE RN - 05/25/2018 13:11 EDT General Info Arrived From : Home Mode of Arrival on Unit : Ambulatory Legal Guardian : Spouse Want Family/Rep/Phys Notified of Admit : Yes Name/Contact Info Fam/Rep Notified Adm : devonte aponte Name/Contact Info Physician Notified Adm : aniyah samano Emergency Contact #1 : devonte aponte Emergency Contact #1 Emergency Contact #1 Relationship : spouse Emergency Contact #2 : none Emergency Contact #2 Phone Number : none Emergency Contact #2 Relationship : none Information Obtained From : Patient Primary Language : Turkish Preferred Communication Mode : Verbal Communication Barrier : None Objects to Sharing Info w Family : No Status : Hysterectomy KAMALA MOISE RN - 05/25/2018 13:11 EDT Sleep Apnea Risk Assmt Hx of [...] Sleep Apnea Risk Level Score : 0 KAMALA MOISE RN - 05/25/2018 13:11 EDT Lexa Scale Lexa Sensory Perception : No impairment Lexa Moisture : Rarely moist Lexa Activity : Walks frequently Lexa Mobility : No limitation Lexa Nutrition : Adequate Lexa Friction and Shear : No apparent problem Lexa Score : 22 KAMALA MOISE RN - 05/25/2018 13:11 EDT Pain Assessment Pain Assessment : Initial assessment Pain Scale Goal : 0 Pain Scale Used : 0-10 Scale KAMALA MOISE RN - 05/25/2018 13:11 EDT Fall Risk Scales ABCs Fall Injury [...] Scale Risk Level : 0-24 Low Risk [place] Fall Interventions : Adequate lighting, Assistive devices within reach, Bed in low position, Call device within reach, Fall prevention handout/education per facility policy, Frequent orientation to call device, Frequent orientation to surroundings, Hourly comfort/safety rounds, Non-slip footwear, Personal items within reach, Reinforced to call for assistance before getting out of bed, Room free of clutter/spills, Upper side-rails up, Wheels locked, Wires/Cords secured KAMALA MOISE, KOLE - 05/25/2018 13:11 EDT Valuables and Belongings Valuables and Belongings : Clothing Clothing : Common streetwear Clothing Disposition : Bedside, With family KAMALA MOISE RN - 05/25/2018 13:11 EDT Pain Scale Intensity : 0 KAMALA MOISE RN - 05/25/2018 13:11 EDT Image 4 - Images currently included in the form version of this document have not been included in the text rendition version of the form. documented in this encounter Plan of Treatment Not on file documented as of this encounter Visit Diagnoses Not on filedocumented in this encounter
--- OUTSIDE RECORDS SUMMARY | 2024-08-27 11:27 | XMS_ITS | Referral Summary ---
Author Organization [facility] [employer] Address [address] [place] [address] Care Team Providers Care Family Lawyer Name Role Phone Unavailable Primary Care Provider Unavailabl e Allergies Active Allergy Reactions Criticality Noted Date Comments Lamotrigine Itching 09/16/2023 [place] 09/16/2023 Medications amitriptyline (ELAVIL) 25 MG tablet [...] Date Tyrone rded Speak language other than Hong Konger at home Not on file 03/25/2023 Want [...] 09/16/2023 9:51 AM EDT Plan of Treatment Not on file Insurance BLUE CROSS/BLUE SHIELD Advance Directives For more information, please contact: [phone] * Full Code (Latest Code Status on File) Date Activated Date Inactivated Comments 09/16/2023 11:46 AM 09/17/2023 4:27 AM
--- OUTSIDE RECORDS SUMMARY | 2024-08-27 11:27 | XMS_ITS | Encounter Summary ---
Author Organization [facility] [employer] Address [address] [place] [address] Care Team Providers Care Bio Medical Technician Name Role Phone Unavailable Primary Care Provider Unavailabl e Encounter Details Date Type Department Care Team (Late st Contact Info) Description 05/25/2018 Transcribed Document [facility] [place] Family Medicine [facility], [facility] [place] [address] ProviderLeyda MD [address] [place] [address] [id number] Social History Tobacco Use Types Packs/Day Years [...] - 05/25/2018 2:13 PM CDT [facility]ICIO [facility] IntraOp Summary Primary Physician: ZINA STEELE MD-GAE Finalized Date/Time: 05/25/18 14:58:42 Pt. Name: FADI MELINDA WOODY /Sex: 1975 Female Med Rec #: [id number] Physician: ZINA STEELE MD-GAE Financial #: [id number] Pt. Type: O Room/Bed: [facility] Admit/Disch: 05/25/18 12:46:00 - Institution: [facility] - Case Attendance Entry 1 Entry 2 Entry 3 Case Attendee ZINA STEELE MD-GAE SHERMAN, YVONNE D., TALIB DECKER NA Role Performed Surgeon/Proceduralist, Nuclear Pharmacist, First POWERHOUSE MECHANIC/Nurse Staking Engineer First Time In 05/25/18 14:10:00 05/25/18 13:56:00 05/25/18 13:56:00 Time Out 05/25/18 14:59:00 05/25/18 14:59:00 05/25/18 14:59:00 Procedure Colonoscopy, Colonoscopy, Colonoscopy, Esophagogastroduodenosco Esophagogastroduodenosco Esophagogastroduodenosco py, Duodenal Biopsy, py, Duodenal Biopsy, py, Duodenal Biopsy, Gastric Polypectomy, Gastric Polypectomy, Gastric Polypectomy, Colon Biopsy Colon Biopsy Colon Biopsy Other Attendee Superficial Wound Closed By: Last Modified By: TOÑO SILVA, TOÑO HENDRIX, TOÑO HENDRIX, KOLE 05/25/18 14:58:08 05/25/18 14:58:08 05/25/18 14:58:08 Entry 4 Case Attendee ZINA DUVALL RN Role Performed Scrub, First Time In 05/25/18 13:56:00 Time Out 05/25/18 14:59:00 Procedure Colonoscopy, Esophagogastroduodenosco py, Duodenal Biopsy, Gastric Polypectomy, Colon Biopsy Other Attendee Superficial Wound Closed By: Last Modified By: TOÑO SILVA, KOLE 05/25/18 14:58:08 [facility] - Case Attendance Audit 05/25/18 14:58:08 Dyeing Machine Feeder: VIKTORIA Modifier: VIKTORIA 1 <+> Time Out 1 <*> Procedure Colonoscopy, Esophagogastroduodenoscopy, Duodenal Biopsy, Gastric Polypectomy, Colon Biopsy 2 <+> Time Out 2 <*> Procedure Colonoscopy, Esophagogastroduodenoscopy, Duodenal Biopsy, Gastric Polypectomy, Colon Biopsy 3 <+> Time Out 3 <*> Procedure Colonoscopy, Esophagogastroduodenoscopy, Duodenal Biopsy, Gastric Polypectomy, Colon Biopsy 4 <+> Time Out 4 <*> Procedure Colonoscopy, Esophagogastroduodenoscopy, Duodenal Biopsy, Gastric Polypectomy, Colon Biopsy 05/25/18 14:53:22 Dyeing Machine Feeder: VIKTORIA Modifier: VIKTORIA 1 <*> Procedure Colonoscopy, Esophagogastroduodenoscopy, Duodenal Biopsy, Gastric Polypectomy 2 <*> Procedure Colonoscopy, Esophagogastroduodenoscopy, Duodenal Biopsy, Gastric Polypectomy 3 <*> Procedure Colonoscopy, Esophagogastroduodenoscopy, Duodenal Biopsy, Gastric Polypectomy 4 <*> Procedure Colonoscopy, Esophagogastroduodenoscopy, Duodenal Biopsy, Gastric Polypectomy 05/25/18 14:20:26 Dyeing Machine Feeder: VIKTORIA Modifier: SHERMAYD <+> 2 Procedure 3 <*> Procedure Colonoscopy, Esophagogastroduodenoscopy, Duodenal Biopsy 4 <*> Procedure Colonoscopy, Esophagogastroduodenoscopy, Duodenal Biopsy 05/25/18 14:20:25 Dyeing Machine Feeder: [email or web address] Modifier: SHERMAYD 1 <*> Procedure Colonoscopy, Esophagogastroduodenoscopy, Duodenal Biopsy 2 <-> Procedure Colonoscopy, Esophagogastroduodenoscopy, Duodenal Biopsy 05/25/18 14:14:02 Dyeing Machine Feeder: VIKTORIA Modifier: SHERMAYD 1 <*> Procedure Colonoscopy, Esophagogastroduodenoscopy 2 <*> Procedure Colonoscopy, Esophagogastroduodenoscopy 3 <*> Procedure Colonoscopy, Esophagogastroduodenoscopy 4 <*> Procedure Colonoscopy, Esophagogastroduodenoscopy 05/25/18 14:12:23 Dyeing Machine Feeder: VIKTORIA Modifier: SHERMAYD <+> 1 Time In <+> 1 Procedure 2 <+> Time In 2 <*> Procedure Colonoscopy, Esophagogastroduodenoscopy 3 <+> Time In 3 <*> Procedure Colonoscopy, Esophagogastroduodenoscopy 4 <+> Time In 4 <*> Procedure Colonoscopy, Esophagogastroduodenoscopy [facility] - Case Times Entry 1 Patient In Room Time 05/25/18 13:56:00 Out Room Time 05/25/18 14:59:00 Anesthesia Start Time 05/25/18 13:56:00 Stop Time 05/25/18 14:57:00 Anesthesia Ready 05/25/18 13:59:00 Surgery / Procedure Times Start Time 05/25/18 14:13:00 Stop Time 05/25/18 14:57:00 Last Modified By: TOÑO SILVA RN 05/25/18 14:58:01 [facility] - Case Times Audit 05/25/18 14:58:01 Dyeing Machine Feeder: VIKTORIA Modifier: SHERMAYD <+> 1 Out Room Time <+> 1 Stop Time <+> 1 Stop Time 05/25/18 14:13:25 Dyeing Machine Feeder: VIKTORIA Modifier: VIKTORIA <+> 1 Start Time [facility] - Cultures and Spec Summary Entry 1 Cultrures and Specimens Specimen Ordered: Yes Specimens Types Pathology Specimen(s) Labeled Lab, Pathology and Sent to Last Modified By: TOÑO SILVA RN 05/25/18 14:15:20 General Comments: duodenal bx, gastric bx, distal esophageal bx , mid esophageal bx, gastric polyp, random colon bx [facility] - Delays Entry 1 Delay Reason Other Duration 0 Minute(s) Comment NO DELAY Last Modified By: TOÑO SILVA RN 05/25/18 13:51:19 [facility] - Departure from OR Entry 1 Integumentary Assessment Integumentary WDL Assessment WDL Transfer/Handoff Transfer to PACU Phase I Handoff Reported to Nely Vitale RN Post-op Transport Stretcher/Gukarol Via Patient Transport TOÑO SILVA, KOLE, Accompanied by TALIB HERNANDES NA Last Modified By: TOÑO SILVA RN 05/25/18 13:52:59 [facility] - Endoscopy Details Entry 1 Abdomen Procedure Soft, Non-Tender Assessment Procedure Abdomen 05/25/18 13:57:00 Assessment D/T Radio Frequency Ablation Last Modified By: TOÑO SILVA RN 05/25/18 13:59:08 [facility] - Fire Risk Assessment Entry 1 Fire Info Surgical Site or 1- Yes Incision Above the Xyphoid Open O2 Source 1- Yes (Mask or Cannula) Available Ignition 1- Yes (ESU, Laser, Light Source) Fire Risk 3 Assessment Score Fire Score Fire Risk Yes Assessment Complete Fire Risk TOÑO SILVA, global consumer sector vice president Verified By Fire Risk 05/25/18 13:51:00 Assessment Verified Date/Time Fire Risk High Risk Protocol Yes Implemented Standard Fire Yes Safety Precautions Followed Last Modified By: TOÑO SILVA RN 05/25/18 13:51:59 [facility] - General Case Pond Supervisor 1 Case Information OR Endo 01 [facility] Case Level 1 Room Verified Yes Wound Class III - Contaminated Specialty SN Gastroenterology Anesthesia Type MAC ASA Class 2 Diagnosis Preop Diagnosis gerd, hx of polpys, constipation Postop Diagnosis barretts, gastric polyps, Hiatal hernia, diverticulosis, redundant colon Last Modified By: TOÑO SILVA RN 05/25/18 14:58:42 [facility] - General Case Data Audit 05/25/18 14:58:42 Dyeing Machine Feeder: VKITORIA Modifier: SHERMAYD 1 <*> Postop Diagnosis barretts, gastric polyps, Hiatal hernia, diverticulosis, redundant colon 05/25/18 14:42:53 Dyeing Machine Feeder: VIKTORIA Modifier: SHERMAYD 1 <*> Postop Diagnosis barretts, gastric polyps, Hiatal hernia, diverticulosis 05/25/18 14:29:00 Dyeing Machine Feeder: VIKTORIA Modifier: SHERMAYD <+> 1 Postop Diagnosis 05/25/18 14:08:50 Dyeing Machine Feeder: VIKTORIA Modifier: SHERMAYD 1 <*> OR Endo 01 [facility] 1 <+> Specialty 1 <+> ASA Class 1 <+> Anesthesia Type 1 <+> Preop Diagnosis 1 <+> Room Verified [facility] - Intraoperative Assessment Entry 1 Valid History / Yes Physical in Chart Preoperative Yes Checklist Reviewed/Evaluated Allergies Reviewed Yes Patient is Latex No Sensitive Level of WDL Consciousness (WDL = Alert, Oriented to Person, Place, and Time) Present Upon IVs, ECG monitored Arrival to OR Last Modified By: TOÑO SILVA RN 05/25/18 13:51:51 [facility] - Intraoperative Equipment Entry 1 Entry 2 Type Scope Scope Equipment Equipment ID Number Setting Intraop Monitoring Electrocardiogram Three lead placement (ECG) Electrode Placement Blood Pressure Source Blood Pressure Arm, left upper Arm, left upper Location Pulse Oximeter Hand, right Hand, right Probe Site Antiembolic Devices Antiembolic Devices Antiembolic Device Location Antiembolic Device ID Number Antiembolic Device Setting Scopes Flexible Endoscopes Gastroscope Colonoscope, Peds Used Scope Serial [id number] Number/Identificatio n Number Photo/Video Documentation Photo Yes Yes Video No No Intraop Equipment Comment Last Modified By: TOÑO SILVA, RN TOÑO SILVA, KOLE 05/25/18 13:51:44 05/25/18 13:51:45 [facility] - Intraoperative Equipment Audit 05/25/18 13:51:45 Dyeing Machine Feeder: VIKTORIA Modifier: VIKTORIA <+> 2 Photo <+> 2 Video <+> 2 Blood Pressure Location <+> 2 Pulse Oximeter Probe Site <+> 2 Flexible Endoscopes Used <+> 2 Scope Serial Number/Identification Number [facility] - Patient Positioning Entry 1 Procedure Esophagogastroduodenosco py Body Position Lateral, right side up Left Arm Position Resting at side Right Arm Position Resting at side Left Leg Position Other Right Leg Position Other Position Comments Right leg over left leg uncrossed Feet Uncrossed Yes Pressure Points Yes Checked Positioned By TOÑO SILVA, RN Position Verified Positioning Yes Verified by Surgeon Last Modified By: TOÑO SILVA, RN 05/25/18 13:52:05 [facility] - Sign In Entry 1 Patient, Site, Yes Procedure Identified Surgical Consent Yes Confirmed Surgical Site N/A Marked by person performing procedure Allergies Yes Airway Hypothermia Risk No Warming Measures No Taken Last Modified By: TOÑO SILVA RN 05/25/18 13:52:18 [facility] - Sign Out Entry 1 RN Confirmation Surgical Yes Procedure(s) Identified Instrument, Sponge N/A and Sharps Counts Correct/Documented Equipment Problems N/A Documented Specimen Labeled Yes Correctly Urinary Catheter N/A Documented in IView Safety Checklist Yes Elements Complete? RN Sign Out TOÑO SILVA, RN Signature RN Sign Out 05/25/18 14:57:00 Signature Date/Time Plan of Care Outcome - [...] related to extraneous objects Last Modified By: TOÑO SILVA, RN 05/25/18 14:57:45 [facility] - Surgical Procedures Entry 1 Entry 2 Entry 3 Procedure Colonoscopy Esophagogastroduodenosco Duodenal Biopsy py Modifiers Additional w/bx w/bx Procedure Description Primary Procedure No Yes No Primary Surgeon ZINA STEELE MD-GAE MARTIN, KATHLEEN, MD-GAE MARTIN, KATHLEEN, MD-GAE Start 05/25/18 14:39:00 05/25/18 14:13:00 05/25/18 14:13:00 Stop 05/25/18 14:57:00 05/25/18 14:30:00 05/25/18 14:30:00 Physician States 05/25/18 14:47:00 Cecum Reached Anesthesia Type MAC MAC MAC Specialty SN Gastroenterology SN Gastroenterology Gastroenterology Wound Class III - Contaminated II - Clean-Contaminated II - Clean-Contaminated Last Modified By: TOÑO SILVA, RN TOÑO SILVA, RN TOÑO SILVA, RN 05/25/18 14:57:29 05/25/18 14:31:55 05/25/18 14:31:55 Entry 4 Entry 5 Procedure Gastric Polypectomy Colon Biopsy Modifiers Additional w/bx Procedure Description Primary Procedure No No Primary Surgeon ZINA STEELE MD-GAE MARTIN, KATHLEEN, MD-GAE Start 05/25/18 14:13:00 05/25/18 14:39:00 Stop 05/25/18 14:30:00 05/25/18 14:57:00 Physician States 05/25/18 14:47:00 Cecum Reached Anesthesia Type MAC MAC Specialty Gastroenterology Gastroenterology Wound Class II - Clean-Contaminated III - Contaminated Last Modified By: TOÑO SILVA, RN TOÑO SILVA, RN 05/25/18 14:31:55 05/25/18 14:57:29 [facility] - Surgical Procedures Audit 05/25/18 14:57:29 Dyeing Machine Feeder: VIKTORIA Modifier: VIKTORIA 1 <*> Procedure Colonoscopy 1 <+> Stop 5 <*> Procedure Colon Biopsy 5 <+> Stop 05/25/18 14:53:19 Dyeing Machine Feeder: VIKTORIA Modifier: VIKTORIA 1 <*> Procedure Colonoscopy 1 <+> Physician States Cecum Reached <+> 5 Procedure <+> 5 Primary Procedure <+> 5 Primary Surgeon <+> 5 Specialty <+> 5 Start <+> 5 Wound Class <+> 5 Anesthesia Type <+> 5 Physician States Cecum Reached 05/25/18 14:42:30 Dyeing Machine Feeder: VIKTORIA Modifier: MARCINYD 1 <*> Procedure Colonoscopy 1 <+> Specialty 1 <*> Start 05/25/18 14:39:00 1 <+> Anesthesia Type 05/25/18 14:31:55 Dyeing Machine Feeder: VIKTORIA Modifier: QUINTONMAYD 2 <*> Procedure Esophagogastroduodenoscopy 2 <+> Stop 3 <*> Procedure Duodenal Biopsy 3 <+> Stop 4 <*> Procedure Gastric Polypectomy 4 <+> Stop 05/25/18 14:20:23 Dyeing Machine Feeder: VIKTORIA Modifier: QUINTONMAYD <+> 4 Procedure <+> 4 Primary Procedure <+> 4 Primary Surgeon <+> 4 Specialty <+> 4 Start <+> 4 Wound Class <+> 4 Anesthesia Type <+> 4 Additional Procedure Description 05/25/18 14:13:59 Dyeing Machine Feeder: VIKTORIA Modifier: QUINTONMAYD <+> 1 Start 2 <*> Procedure Esophagogastroduodenoscopy 2 <+> Specialty 2 <+> Start 2 <+> Anesthesia Type <+> 3 Procedure <+> 3 Primary Procedure <+> 3 Primary Surgeon <+> 3 Specialty <+> 3 Start <+> 3 Wound Class <+> 3 Anesthesia Type <+> 3 Additional Procedure Description [facility] - Time Out Entry 1 Procedure to be Colonoscopy, Performed Esophagogastroduodenosco py, Duodenal Biopsy, Gastric Polypectomy Time Out Time Out Pause Time 05/25/18 14:12:00 All activity Yes suspended (unless life threatening emergency) Team Verbally Correct patient Confirms Information identity, Consent form is present and accurate, Agreement on the procedure to be done, Correct patient position Antibiotic N/A Prophylaxis Administered Or In Progress Within the Last 60 Minutes Beta Dolly N/A Administered Venous N/A Thromboembolism Prophylaxis Required Anticipated Critical Events Surgeon None expected Last Modified By: TOÑO SILVA RN 05/25/18 14:20:27 [facility] - Time Out Audit 05/25/18 14:20:27 Dyeing Machine Feeder: VIKTORIA Modifier: QUINTONMAYD 1 <*> Procedure to be Performed Colonoscopy, Esophagogastroduodenoscopy, Duodenal Biopsy 05/25/18 14:14:03 Dyeing Machine Feeder: VIKTORIA Modifier: VIKTORIA 1 <*> Procedure to be Performed Colonoscopy, Esophagogastroduodenoscopy Case Comments <None> Finalized By: TOÑO SILVA RN Document Signatures Signed By: TOÑO SILVA RN 05/25/18 14:58 documented in this encounter Plan of Treatment Not on file documented as of this encounter Visit Diagnoses Not on filedocumented in this encounter
--- OUTSIDE RECORDS SUMMARY | 2024-08-27 11:27 | XMS_ITS | Encounter Summary ---
Author Organization [employer] Address [address] [place] [address] Care Team Providers Care Hollow Ware Maker Name Role Phone Unavailable Primary Care Provider Unavailabl e Encounter Details Date Type Department Care Team (Late st Contact Info) Description 05/25/2018 Transcribed Document [facility] [place] [facility] [place] [address] ProviderLeyda MD [address] [place] [id number] Social History Tobacco Use Types Packs/Day Years Used Date Smoking Tobacco: Never Assessed Comments Unknown Sex and Gender Information Value Date Recorded Sex Assigned at Not on file Legal Sex Female 6:21 PM CDT Gender Identity Not on file Sexual Orientation Not on file documented as of this encounter Miscellaneous Notes * Cerner Conversion Note - Leyda Clark MD - 05/25/2018 3:21 PM CDT [place] [address] [facility] [place] [address] Patient Copy Patient Information: Name: MELINDA APONTE Current Date: 05/25/2018 15:21:13 : 1975 Patient Address: [facility] [id number] Patient Attending Physician: ZINA STEELE MD-BETI Primary Care Provider: Bill Lamar MD Primary Care Provider Discharge Diagnosis: 1:Epigastric pain Weight on Admission: 170 lb, 2 oz Comment: Discharge Instructions: Diet after Discharge: Regular diet [...] getting enough exercise. ??? Smoking. ??? Taking pbgz-opx-typupyv pain medicines, like aspirin and ibuprofen. SYMPTOMS [...] 11/18/2004 Document Revised: 02/26/2014 Document Reviewed: 01/16/2014 [employer] Interactive Patient Education ? 2017 [employer]. Colonoscopy, Adult, Care After This sheet gives [...] slower pace than normal. ? Eat soft, croh-yi-pyyngu foods. ? Rest often. ??? Take nlex-bfg-knmsusu or prescription medicines only as told by [...] 10/05/2004 Document Revised: 11/15/2016 Document Reviewed: 05/04/2016 [employer] Interactive Patient Education ? 2017 [employer] Hiatal Hernia A hiatal hernia occurs [...] symptoms. ??? Medicines. These may include: ? Iigm-bfb-tzhzwop antacids. ? Medicines that make your stomach [...] These may include: ? Fatty foods. ? Gregory fruits. ? Other foods and drinks that [...] 05/13/2004 Document Revised: 06/14/2016 Document Reviewed: 02/08/2014 [employer] Interactive Patient Education ? 2017 [employer]. Gastric Polyps A gastric polyp, also [...] Follow these instructions at home: ??? Take qxtx-gzj-idgzphl and prescription medicines only as told by [...] 02/07/2013 Document Revised: 07/12/2016 Document Reviewed: 03/07/2016 [employer] Interactive Patient Education ? 2017 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 ? [place] or spicy foods. ? Chocolate and peppermint. General instructions ??? Take ueph-jth-sipjfum and prescription medicines only as told by [...] Revised: 07/29/2016 Document Reviewed: 12/04/2015 ? 2017 Elsevier Esophagogastroduodenoscopy, Care After Introduction Refer to this [...] 07/29/2016 Document Reviewed: 01/15/2016 ? 2017 [employer]vier CIGARETTE SMOKING: The facts are clear, cigarette smoking will shorten your life. Smoking can cause many illnesses along the way. As a healthcare provider, we recommend that you stop smoking. Assistance with quitting is available by contacting 3-132-GBMF-NOW. This is a free resource providing counseling, [...] sure to sign up for the My [facility] patient portal, which gives you 27/09 access to your medical information ??? including these discharge instructions ??? using your computer, smartphone, or tablet. Just go to [employer] to get started. Questions? Call . [facility] would like to thank you for allowing us to assist you with your healthcare needs. I, MELINDA APONTE, (or pharmaceutical representative) have received the above patient education materials/instructions and have verbalized understanding: Patient Signature _ Date/Time Patient Visual C Developer Signature (if needed) Date/Time Clinician/Hospital Visual C Developer Signature (if needed) Date/Time documented in this encounter Plan of Treatment Not on file documented as of this encounter Visit Diagnoses Not on filedocumented in this encounter
--- OUTSIDE RECORDS SUMMARY | 2024-08-27 11:27 | XMS_ITS | Encounter Summary ---
Author Organization [facility] [employer] Address [address] [place] [address] Care Team Providers Care Parts Sales Associate Name Role Phone Unavailable Primary Care Provider Unavailabl e Encounter Details Date Type Department Care Team (Late st Contact Info) Description 05/25/2018 Transcribed Document [facility] [place] Family [place] [facility] [address] ProviderLeyda MD [address] [place] [id number] Social History Tobacco Use Types Packs/Day Years Used Date Smoking Tobacco: Never Assessed Comments Unknown Sex and Gender Information Value Date Recorded Sex Assigned at Not on file Legal Sex Female 6:21 PM CDT Gender Identity Not on file Sexual Orientation Not on file documented as of this encounter Miscellaneous Notes * Cerner Conversion Note - Leyda ProviderMD - 05/25/2018 1:30 PM CDT [facility] PreOp Summary Primary Physician: ZINA STEELE MD-GAE Finalized Date/Time: 05/25/18 13:35:19 Pt. Name: MELINDA APONTE /Sex: 1975 Female Med Rec #: [id number] Physician: ZINA STEELE MD-GAE Financial #: [id number] Pt. Type: O Room/Bed: [facility] [place] Admit/Disch: 05/25/18 12:46:00 - Institution: [facility] PreOp Case Times Entry 1 In Preop 05/25/18 13:03:00 Ready for Holding n/a Room Patient Ready for 05/25/18 13:34:00 Surgery Patient Out of Preop 05/25/18 13:34:00 Patient Out of n/a Holding Room [facility] PreOp Case Times Audit 05/25/18 13:34:42 Mechanical Research Engineer: DANI Modifier: DANI <+> 1 Patient Out of Preop <+> 1 Patient Ready for Surgery Finalized By: KAMALA MOISE RN Document Signatures Signed By: KAMALA MOIES RN 05/25/18 13:35 Electronically signed by Soham Betancourt Conversion Canned Food Reconditioning Inspector Cerner at 06/22/2022 9:23 AM CDT documented in this encounter Plan of Treatment Not on file documented as of this encounter Visit Diagnoses Not on filedocumented in this encounter
== END 2024-08-27 23:59 | disposition home or self-care (01) ==
LOC: RT 10:59
PROVIDERS: PCP Internal Medicine; Visit Provider Student in an Organized Health Care Education/Training Program
DX: I34.0 Nonrheumatic mitral (valve) insufficiency (principal); I50.9 Heart failure, unspecified; M34.9 Systemic sclerosis, unspecified; R93.1 Abnormal findings on diagnostic imaging of heart and coronary circulation
CPT/HCPCS: 93306

== ENCOUNTER 2024-09-21 12:52 | Outpatient (CLI) | payer BC, SELFPAY ==
--- OUTSIDE RECORDS SUMMARY | 2024-09-21 12:54 | XMS_ITS | Encounter Summary ---
Author Organization [employer] ([place], [place], [place], [place]) Address [address] [place] [address] Care Team Providers Care Vocational Training Teacher Name Role Phone Unavailable Primary Care Provider Unavailabl e Encounter Details Date Type Department Care Team (Late st Contact Info) Description 09/04/2019 Transcribed Document [facility] [place] Medicine [address] [place] [address] ProviderLeyda MD [address] [place] [address] [id number] Social History Tobacco Use Types Packs/Day Years [...] ProviderMD - 09/04/2019 9:45 AM CDT [facility] IntraOp Summary Primary Physician: ZINA STEELE MD-GAE Finalized Date/Time: 09/26/19 10:38:41 Pt. Name: FADI MELINDA WOODY /Sex: 1975 Female Med Rec #: [id number] Physician: ZINA STEELE MD-GAE Financial #: [id number] Pt. Type: O Room/Bed: END/ Admit/Disch: 09/04/19 08:25:00 - 09/04/19 16:27:00 Institution: [facility] - Case Attendance Entry 1 Entry 2 Entry 3 Case Attendee ZINA STEELE MD-GAE MILLER, MELISSA A, RN WURTELE, MARY L. Role Performed Surgeon/Proceduralist, Screen Writer, First Scrub, First First Time In 09/04/19 09:37:00 09/04/19 09:37:00 09/04/19 09:37:00 Time Out 09/04/19 09:54:00 09/04/19 09:54:00 09/04/19 09:54:00 Procedure Esophagogastroduodenosco Esophagogastroduodenosco Esophagogastroduodenosco py, Esophageal Biopsy py, Esophageal Biopsy py, Esophageal Biopsy Other Attendee Superficial Wound Closed By: Last Modified By: STEPHENIE EVANGELISTA RN MILLER, MELISSA A, RN MILLER, MELISSA A, RN 09/04/19 09:52:13 09/04/19 09:52:13 09/04/19 09:52:13 Entry 4 Entry 5 Case Attendee SAMMIE RODRIGUEZ MD-ANS VON KUSTER, MARIE LYNNETTE, CRNA Role Performed Anesthesiologist of [employer]/Nurse Public Relations Counselor Record Time In 09/04/19 09:37:00 09/04/19 09:37:00 Time Out 09/04/19 09:54:00 09/04/19 09:54:00 Procedure Esophagogastroduodenosco Esophagogastroduodenosco py, Esophageal Biopsy py, Esophageal Biopsy Other Attendee Superficial Wound Closed By: Last Modified By: STEPHENIE EVANGELISTA RN MILLER, MELISSA A, RN 09/04/19 09:52:13 09/04/19 09:52:13 [facility] - Case Attendance Audit 09/04/19 09:52:13 Qc Analyst: KARLY Modifier: [email or web address] 1 <+> Time Out 1 <*> Procedure Esophagogastroduodenoscopy, Esophageal Biopsy 2 <+> Time Out 2 <*> Procedure Esophagogastroduodenoscopy, Esophageal Biopsy 3 <+> Time Out 3 <*> Procedure Esophagogastroduodenoscopy, Esophageal Biopsy 4 <+> Time Out 4 <*> Procedure Esophagogastroduodenoscopy, Esophageal Biopsy 5 <+> Time Out 5 <*> Procedure Esophagogastroduodenoscopy, Esophageal Biopsy 09/04/19 09:49:17 Qc Analyst: KARLY Modifier: TONJAMA 1 <+> Time In 1 <*> Procedure Esophagogastroduodenoscopy 2 <+> Time In 2 <*> Procedure Esophagogastroduodenoscopy 3 <+> Time In 3 <*> Procedure Esophagogastroduodenoscopy 4 <+> Time In 4 <*> Procedure Esophagogastroduodenoscopy 5 <+> Time In 5 <*> Procedure Esophagogastroduodenoscopy 09/04/19 09:38:36 Qc Analyst: KARLY Modifier: KARLY <+> 2 Case Attendee <+> 2 Role Performed <+> 2 Procedure <+> 3 Case Attendee <+> 3 Role Performed <+> 3 Procedure <+> 4 Case Attendee <+> 4 Role Performed <+> 4 Procedure <+> 5 Case Attendee <+> 5 Role Performed <+> 5 Procedure [facility] - Case times Entry 1 Patient In Room Time 09/04/19 09:37:00 Out Room Time 09/04/19 09:54:00 Anesthesia Start Time 09/04/19 09:37:00 Stop Time 09/04/19 09:54:00 Surgery / Procedure Times Start Time 09/04/19 09:45:00 Stop Time 09/04/19 09:51:00 Last Modified By: STEPHENIE EVANGELISTA RN 09/04/19 09:52:02 [facility] - Case times Audit 09/04/19 09:52:02 Qc Analyst: KARLY Modifier: KARLY <+> 1 Out Room Time <+> 1 Stop Time <+> 1 Stop Time 09/04/19 09:45:29 Qc Analyst: KARLY Modifier: KARLY <+> 1 Start Time [facility] - Cultures and Spec Summary Entry 1 Cultrures and Specimens Specimen Ordered: Yes Test(s) Routine/Path-Lab Requested/Final Disposition Last Modified By: STEPHENIE EVANGELISTA RN 09/04/19 09:49:51 [facility] - Delays Entry 1 Delay Reason Other, No Delay Duration 0 Minute(s) Last Modified By: STEPHENIE EVANGELISTA RN 09/04/19 09:38:45 [facility] - Departure from OR Entry 1 Integumentary Assessment Integumentary WDL Assessment WDL Transfer/Handoff Transfer to PACU Phase I Handoff Method Bedside/Face to face Post-op Transport Stretcher/Gurney Via Patient Transport STEPHENIE EVANGELISTA RN, Accompanied by EMMANUEL RAYMOND CRNA Last Modified By: STEPHENIE EVANGELISTA RN 09/04/19 09:38:48 [facility] - Endoscopy Details Entry 1 Abdomen Procedure Soft, Non-Tender Assessment Procedure Abdomen 09/04/19 09:38:00 Assessment D/T Radio Frequency Ablation Abdominal Pressure Last Modified By: STEPHENIE EVANGELISTA RN 09/04/19 09:38:52 [facility] - Fire Risk Assessment Entry 1 [...] By: STEPHENIE EVANGELISTA RN 09/04/19 09:38:54 [facility] - General Case Safety Technician 1 Case Information OR [facility] Case Level 1 Room Verified Yes Wound Class II - Clean-Contaminated Specialty SN Gastroenterology Anesthesia Type General ASA Class 2 Diagnosis Preop Diagnosis hx of barretts Postop Same As Preop Yes Postop Diagnosis hx of barretts Last Modified By: STEPHENIE EVANGELISTA RN 09/04/19 09:39:11 [facility] - Intraoperative Assessment Entry 1 Valid History / Yes Physical in Chart Preoperative Yes Checklist Reviewed/Evaluated Patient is Latex No Sensitive Level of WDL Consciousness (WDL = Alert, Oriented to Person, Place, and Time) Last Modified By: STEPHENIE EVANGELISTA RN 09/04/19 09:39:12 [facility] - Intraoperative Equipment Entry 1 Equipment Intraop Monitoring Electrocardiogram Three lead placement (ECG) Electrode Placement Blood Pressure Arm, left upper Location Pulse Oximeter Hand, right Probe Site Antiembolic Devices Scopes Flexible Endoscopes Gastroscope Used Scope Serial A Number/Identificatio n Number Photo/Video Documentation Photo Yes Video No Last Modified By: STEPHENIE EVANGELISTA RN 09/04/19 09:39:20 [facility] - Intraoperative Equipment Audit 09/04/19 09:39:20 Qc Analyst: KARLY Modifier: KARLY <+> 1 Photo <+> 1 Video <+> 1 Blood Pressure Location <+> 1 Pulse Oximeter Probe Site <+> 1 Flexible Endoscopes Used <+> 1 Scope Serial Number/Identification Number [facility] - Patient Positioning Entry 1 Procedure [...] By: STEPHENIE EVANGELISTA RN 09/04/19 09:49:18 [facility] - Patient Positioning Audit 09/04/19 09:49:18 Qc Analyst: KALRY Modifier: KARLY 1 <*> Procedure Esophagogastroduodenoscopy [facility] - Sign In Entry 1 Patient, Site, Yes Procedure Identified Surgical Consent Yes Confirmed Surgical Site N/A Marked by person performing procedure Airway Hypothermia Risk No Warming Measures No Taken Last Modified By: STEPHENIE EVANGELISTA RN 09/04/19 09:39:28 [facility] - Sign Out Entry 1 RN [...] By: STEPHENIE EVANGELISTA RN 09/04/19 09:52:08 [facility] - Surgical Procedures Entry 1 Entry 2 Procedure Esophagogastroduodenosco Esophageal Biopsy py Modifiers Additional distal esophageal bx Procedure Description Primary Procedure Yes No Primary Surgeon ZINA STEELE MD-GAE MARTIN, KATHLEEN, MD-GAE Start 09/04/19 09:45:00 09/04/19 09:45:00 Stop 09/04/19 09:51:00 09/04/19 09:51:00 Physician States Cecum Reached Anesthesia Type MAC MAC Specialty SN Gastroenterology SN Gastroenterology Wound Class II - Clean-Contaminated II - Clean-Contaminated Last Modified By: STEPHENIE EVANGELISTA RN MILLER, MELISSA A, RN 09/04/19 09:52:11 09/04/19 09:52:11 [facility] - Surgical Procedures Audit 09/04/19 09:52:11 Qc Analyst: KARLY Modifier: MILLERMA <+> 1 Stop <+> 2 Stop 09/04/19 09:49:16 Qc Analyst: KARLY Modifier: MILLERMA <+> 2 Procedure <+> 2 Primary Procedure <+> 2 Primary Surgeon <+> 2 Specialty <+> 2 Start <+> 2 Wound Class <+> 2 Anesthesia Type <+> 2 Additional Procedure Description 09/04/19 09:45:40 Qc Analyst: KARLY Modifier: [email or web address] <+> 1 Start [facility] - Time Out Entry 1 Procedure [...] By: STEPHENIE EVANGELISTA RN 09/04/19 09:49:18 [facility] - Time Out Audit 09/04/19 09:49:18 Qc Analyst: KARLY Modifier: KARLY 1 <*> Procedure to be Performed Esophagogastroduodenoscopy Case Comments <None> Finalized By: Linda May Rn Document Signatures Signed By: STEPHENIE EVANGELISTA RN 09/04/19 09:52 Linda May Rn 09/26/19 10:38 Unfinalized History Date/Time Username Reason for Unfinalizing Freetext Reason for Unfinalizing 09/26/19 10:36 MFWARD Correct Billing documented in this encounter Plan of Treatment Not on file documented as of this encounter Visit Diagnoses Not on filedocumented in this encounter
--- OUTSIDE RECORDS SUMMARY | 2024-09-21 12:54 | XMS_ITS | Encounter Summary ---
Author Organization [employer] ([place], [place], [place], [place]) Address [address] [place] [address] Care Team Providers Care Audiovisual Tech Name Role Phone Unavailable Primary Care Provider Unavailabl e Encounter Details Date Type Department Care Team (Late st Contact Info) Description 10/06/2018 Transcribed Document [facility] [place] [address] ProviderLeyda MD [address] [place] [id number] Social History Tobacco Use Types Packs/Day Years [...] Laparoscopic Toupet fundoplication. SURGEON: Daniel Jang MD DIGITAL ASSOCIATE MEDIA DIRECTOR: Marcel OPERATION/PROCEDURE DESCRIPTION: After obtaining informed consent, [...] esophagus and the anesthesiologist then advanced a 56-Kiswahili bougie through the mouth, through the stomach, [...] Trans: 10/06/2018 07:37:42 CC1: Daniel Jang M.D. documented in this encounter Plan of Treatment Not on file documented as of this encounter Visit Diagnoses Not on filedocumented in this encounter
--- OUTSIDE RECORDS SUMMARY | 2024-09-21 12:54 | XMS_ITS | Encounter Summary ---
Author Organization [employer] ([place], [place], [place], [place]) Address [address] [place] [address] Care Team Providers Care Butter Fat Tester Name Role Phone Unavailable Primary Care Provider Unavailabl e Encounter Details Date Type Department Care Team (Late st Contact Info) Description 09/04/2019 Transcribed Document [facility] [place] [facility] [place] [address] ProviderLeyda MD [address] [place] [id number] Social History Tobacco Use Types Packs/Day Years [...] activities are safe for you. ??? Take oxma-vxf-hhfdrhg and prescription medicines only as told by [...] 05/30/2001 Document Revised: 10/07/2017 Document Reviewed: 10/07/2017 [employer] Interactive Patient Education ? 2020 [employer]. Silveira's Esophagus Silveira's esophagus occurs when the [...] Tomatoes and foods made with tomatoes. ? [place] or spicy foods. ? Chocolate and peppermint. ??? Do not drink alcohol. General instructions ??? Take craa-bnr-zdbewci and prescription medicines only as told by [...] 05/13/2004 Document Revised: 06/19/2018 Document Reviewed: 06/19/2018 [employer] Interactive Patient Education ? 2019 [employer]. documented in this encounter Plan of Treatment Not on file documented as of this encounter Visit Diagnoses Not on filedocumented in this encounter
--- OUTSIDE RECORDS SUMMARY | 2024-09-21 12:54 | XMS_ITS | Encounter Summary ---
Author Organization [employer] ([place], [place], [place], [place]) Address [address] [place] [address] Care Team Providers Care Milk Route Supervisor Name Role Phone Unavailable Primary Care Provider Unavailabl e Encounter Details Date Type Department Care Team (Late st Contact Info) Description 09/04/2019 Transcribed Document [facility] [place] Family Medicine [address] [place] [address] ProviderLeyda MD [address] [place], [place] 329151 Social History Tobacco Use Types Packs/Day Years [...] Clark MD - 09/04/2019 10:12 AM CDT [facility] [place], [place] [id number] MELINDA APONTE :1975 Visit Time:09/04/2019 What to do next Follow-Up Appointments Follow Up with ZINA STEELE When Comments repeat EGD in 5 years biopsy report willl be mailed to you in 7-10 days Where: [address] [place] [address]- [employer] (1) Medications What How Much When Instructions [...] activities are safe for you. ??? Take tjqy-kvq-hhleqao and prescription medicines only as told by [...] 05/30/2001 Document Revised: 10/07/2017 Document Reviewed: 10/07/2017 [employer] Interactive Patient Education ?? 2020 [employer]. Silveira's Esophagus Silveira's esophagus occurs when the [...] Tomatoes and foods made with tomatoes. ? [place] or spicy foods. ? Chocolate and peppermint. ??? Do not drink alcohol. General instructions ??? Take vema-yqq-prhqhsh and prescription medicines only as told by [...] 05/13/2004 Document Revised: 06/19/2018 Document Reviewed: 06/19/2018 [employer] Interactive Patient Education ?? 2020 [employer]. Emergency Awareness and Preventative Care STROKE is [...] Assistance with quitting is available by contacting 6-196-MWUR-NOW. This is a free resource providing counseling, [...] was given the opportunity to ask questions. Patient/Confectionery Maker Name: Patient/Confectionery Maker Signature: Relationship to Patient: Clinician/Hospital Confectionery Maker Signature: Date: documented in this encounter Plan of Treatment Not on file documented as of this encounter Visit Diagnoses Not on filedocumented in this encounter
--- OUTSIDE RECORDS SUMMARY | 2024-09-21 12:54 | XMS_ITS | Encounter Summary ---
Author Organization [employer] ([place], [place], [place], [place]) Address [address] [place] [address] Care Team Providers Care Continuous Churn Buttermaker Name Role Phone Unavailable Primary Care Provider Unavailabl e Encounter Details Date Type Department Care Team (Late st Contact Info) Description 09/04/2019 Transcribed Document [facility] [place] Family Medicine [address] [place] [address] ProviderLeyda MD [facility] [place] [address] Social History Tobacco Use Types Packs/Day Years Used Date Smoking Tobacco: Never Assessed Comments Unknown Sex and Gender Information Value Date Recorded Sex Assigned at Not on file Legal Sex Female 6:21 PM CDT Gender Identity Not on file Sexual Orientation Not on file documented as of this encounter Miscellaneous Notes * Cerner Conversion Note - Leyda Clark MD - 09/04/2019 9:45 AM CDT [facility] PACU Summary Primary Physician: ZINA STEELE MD-GAE Finalized Date/Time: 09/04/19 10:20:18 Pt. Name: MELINDA APONTE D.O.B./Sex: 1975 Female Med Rec #: [id number] Physician: ZINA STEELE MD-GAE Financial #: [id number] Pt. Type: O Room/Bed: END/ Admit/Disch: 09/04/19 08:25:00 - Institution: [facility] PACU Case Times Entry 1 In PACU I 09/04/19 09:56:00 Ready for PACU 09/04/19 10:20:00 Discharge Discharge from PACU 09/04/19 10:20:00 I Last Modified By: Heather Hernandez RN 09/04/19 10:20:14 [facility] PACU Case Times Audit 09/04/19 10:20:14 Well Digger: [id number] Modifier: [id number] <+> 1 Ready for PACU Discharge <+> 1 Discharge from PACU I Finalized By: Heather Hernandez, RN Document Signatures Signed By: Heather Hernandez RN 09/04/19 10:20 documented in this encounter Plan of Treatment Not on file documented as of this encounter Visit Diagnoses Not on filedocumented in this encounter
--- OUTSIDE RECORDS SUMMARY | 2024-09-21 12:55 | XMS_ITS | Encounter Summary ---
Author Organization [employer] ([place], [place], [place], [place]) Address [address] [place] [address] Care Team Providers Care Tafe Teacher Name Role Phone Unavailable Primary Care Provider Unavailabl e Encounter Details Date Type Department Care Team (Late st Contact Info) Description 03/26/2021 Transcribed Document [facility] [place] [address] [place] [address] ProviderLeyda MD [address] [place], [place] [id number] Social History Tobacco Use Types Packs/Day Years Used Date Smoking Tobacco: Never Assessed Food Insecurity Answer Date Recorded Food run [...] Date Tyrone rded Speak language other than Kyrgyz at home Not on file 03/25/2023 Want help with school or training Not on file 03/25/2023 Substance Use Answer Date Recorded Used prescription meds for non-medical reasons N ot on file 03/25/2023 Used illegal drugs past 12 months Not on file 03/25/2023 Comments Unknown Sex and Gender Information Value Date Recorded Sex Assigned at Not on file Legal Sex Female 6:21 PM CDT Gender Identity Not on file Sexual Orientation Not on file documented as of this encounter Miscellaneous Notes * Cerner Conversion Note - Historical ProviderMD - 03/26/2021 9:40 AM BRUSH WASHER Patient: MELINDA APONTE Age: 46 years Sex: Female : 1975 Associated Diagnoses: None Author: COMER, SHYLA Hall APRN Chief Complaint pleasant 46 yo female [...] last week and neg) / SNOMED CT 11098905 / Confirmed Left bundle branch block / SNOMED CT 174764857 / Confirmed GERD (gastroesophageal reflux disease) / SNOMED CT 266551588 / Confirmed Constipation / SNOMED CT 69679423 / Confirmed Anxiety and depression / SNOMED CT 42323932 / Confirmed, Active Problems (5) Anxiety and depression Constipation GERD (gastroesophageal reflux disease) Hepatitis C (pt states tested last week and neg) Left bundle branch block Histories Past Medical History: Active Left bundle branch block (949366178) Anxiety and depression (00571863) Hepatitis C (pt states tested last week and neg) (91387087) Constipation (08934516) GERD (gastroesophageal reflux disease) (369664004) Family History: No family history items have been selected or recorded. Procedure history: . Hysterectomy (929597905). Colonoscopy (175039945). Esophagogastroduodenoscopy (363088193). Breast augmentation (3215628746). hernia repair. Social History Social & Psychosocial [...] Temp 98.4 (MAR 26 09:00) 98.4 (MAR 26:00) 98.4 (MAR 26:00) Mon HR 72 (MAR 26 09:00) 72 (MAR 26 09:00) 72 (MAR 26:00) SBP 129 (MAR 26 09:00) 129 (MAR 26 09:00) 129 (MAR 26:00) DBP 80 (MAR 26:00) 80 (MAR 26 09:00) 80 (NILES 20 09:00) SpO2 98 (MAR 26 09:00) 98 (MAR 26 09:00) 98 (MAR 26 09:00) , Measurements from flowsheet : Measurements 03/25/2021 14:18 EST Height Source Measured Height Entry Format [place] Height/Length, AZERI (ft) 5 ft Height/Length AZERI 1 Inch CLINICALHEIGHT 154.94 cm [place] Body Weight 47 kg Weight Source Standing scale Weight Entry Format [place] Weight Kyr[place]z lb 178 lb Weight K[place] oz 6 oz CLINICALWEIGHT 81.08 kg Body [...] of motion, Normal strength. Integumentary: Warm, Dry, [place]. Neurologic: Alert, Oriented. Psychiatric: Cooperative, Appropriate mood & affect. Review / Management Results review: No qualifying data available. Impression and Plan Diagnosis 1. gallstones 2. anxiety/depression 3. constipation 4. GERD 5. Hep C 6. L BBB. Condition: Stable. pt to proceed with surgery, DC home today documented in this encounter Plan of Treatment Not on file documented as of this encounter Visit Diagnoses Not on filedocumented in this encounter
--- OUTSIDE RECORDS SUMMARY | 2024-09-21 12:55 | XMS_ITS | Encounter Summary ---
Author Organization [employer] ([place], [place], [place]) Address [address] [place] [address] Care Team Providers Care Sewing Machinist Name Role Phone Unavailable Primary Care Provider Unavailabl e Encounter Details Date Type Department Care Team (Late st Contact Info) Description 05/25/2018 Transcribed Document [facility] [place] [facility] [place] [address] ProviderLeyda MD [address] [place] [address] [id number] Social History Tobacco Use Types Packs/Day Years [...] Clark MD - 05/25/2018 3:23 PM CDT [address], [place] [address] Patient Copy Patient Information: Name: MELINDA APONTE Current Date: 05/25/2018 15:23:27 : 1975 Patient Address: [facility] [address] [facility] [address] Patient Attending Physician: ZINA STEELE [facility] Primary Care Provider: Bill Lamar MD Primary Care Provider Discharge Diagnosis: 1:Epigastric pain Weight on Admission: 170 lb, 2 oz Comment: Follow-up Instructions: With: Address: When: [place] [address] [place] [address] Business (1) Within As needed Comments: [...] getting enough exercise. ??? Smoking. ??? Taking tatu-dxr-dxoajgy pain medicines, like aspirin and ibuprofen. SYMPTOMS [...] 11/18/2004 Document Revised: 02/26/2014 Document Reviewed: 01/16/2014 [employer] Interactive Patient Education ? 2017 [employer]. Colonoscopy, Adult, Care After This sheet gives [...] slower pace than normal. ? Eat soft, suou-xm-djkrnb foods. ? Rest often. ??? Take xpsm-muh-klqiwvc or prescription medicines only as told by [...] 10/05/2004 Document Revised: 11/15/2016 Document Reviewed: 05/04/2016 [employer] Interactive Patient Education ? 2017 [employer]. Inc. Hiatal Hernia A hiatal hernia occurs [...] symptoms. ??? Medicines. These may include: ? Bcxl-syd-dgmkshf antacids. ? Medicines that make your stomach [...] These may include: ? Fatty foods. ? [place] fruits. ? Other foods and drinks that [...] 05/13/2004 Document Revised: 06/14/2016 Document Reviewed: 02/08/2014 [employer] Interactive Patient Education ? 2017 [employer] Inc. Gastric Polyps A gastric polyp, also [...] Follow these instructions at home: ??? Take dvwo-sig-uotznzf and prescription medicines only as told by [...] 02/07/2013 Document Revised: 07/12/2016 Document Reviewed: 03/07/2016 [employer] Interactive Patient Education ? 2017 [employer] 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 ? [place]on or spicy foods. ? Chocolate and peppermint. General instructions ??? Take blzk-eqb-qenhuoz and prescription medicines only as told by [...] Revised: 07/29/2016 Document Reviewed: 01/15/2016 ? 2017 [employer]. Medication Leaflets: omeprazole (oh MEP ra zol) [...] a broken bone while taking this medicine supersonic engineer or more than once per day. What [...] by infection with Helicobacter pylori (H. pylori). Fdta-uoo-yencpyo (OTC) omeprazole is used to help control [...] medicine exactly as directed. Use Prilosec OTC (umyi-ivb-gxekjzd) exactly as directed on the label, or [...] may report side effects to FDA at 3-210-UYI-1882. What other drugs will affect omeprazole? Sometimes it is not safe to use certain medications at the same time. Some drugs can affect your blood levels of other drugs you take, which may increase side effects or make the medications less effective. Tell your doctor about all your current medicines. Many drugs can affect omeprazole, especially: ? clopidogrel; ?? methotrexate; ?? New Home's wort; or ?? an antibiotic--amoxicillin, clarithromycin, rifampin. This list is not complete and many other drugs may affect omeprazole. This includes prescription and qhdk-vsc-mjrzsfz medicines, vitamins, and herbal products. Not all [...] to ensure that the information provided by [employer]. ('[employer]') is accurate, up-to-date, and complete, but no guarantee is made to that effect. Drug information contained herein may be time sensitive. [employer] information has been compiled for use by healthcare practitioners and consumers in the [place] and therefore [employer] does not warrant that uses outside of the [place] are appropriate, unless specifically indicated otherwise. [employer] drug information does not endorse drugs, diagnose patients or recommend therapy. [employer] drug information is an informational resource designed [...] effective or appropriate for any given patient. [facility] does not assume any responsibility for any aspect of healthcare administered with the aid of information [facility] provides. The information contained herein is not intended to cover all possible uses, directions, precautions, warnings, drug interactions, allergic reactions, or adverse effects. If you have questions about the drugs you are taking, check with your doctor, nurse or pharmacist. Copyright 9845-2593 [facility], [facility]. Version: 19.01. Revision Date: 08/29/2017. CIGARETTE SMOKING: The facts are clear, cigarette smoking will shorten your life. Smoking can cause many illnesses along the way. As a healthcare provider, we recommend that you stop smoking. Assistance with quitting is available by contacting 0-978-VCFZTextual Analytics SolutionsNOW. This is a free resource providing counseling, [...] sure to sign up for the My [facility] patient portal, which gives you 27/09 access to your medical information ??? including these discharge instructions ??? using your computer, smartphone, or tablet. Just go to [employer]beat to get started. Questions? Call . [facility] would like to thank you for allowing us to assist you with your healthcare needs. Kath, MELINDA APONTE, (or artist's representative) have received the above patient education materials/instructions and have verbalized understanding: Patient Signature _ Date/Time Patient Supervisor Wet Room Signature (if needed) Date/Time Clinician/Hospital Supervisor Wet Room Signature (if needed) Date/Time documented in this encounter Plan of Treatment Not on file documented as of this encounter Visit Diagnoses Not on filedocumented in this encounter
--- OUTSIDE RECORDS SUMMARY | 2024-09-21 12:55 | XMS_ITS | Encounter Summary ---
Author Organization [employer] ([place], [place], [place], [place]) Address [address] [place] [address] Care Team Providers Care Fruit Grader Name Role Phone Unavailable Primary Care Provider Unavailabl e Encounter Details Date Type Department Care Team (Late st Contact Info) Description 09/29/2018 Transcribed Document [facility] [place] [address] [place] [address] ProviderLeyda MD [place] [address] Social History Tobacco Use Types Packs/Day Years Used Date Smoking Tobacco: Never Assessed Comments Unknown Sex and Gender Information Value Date Recorded Sex Assigned at Not on file Legal Sex Female 6:21 PM CDT Gender Identity Not on file Sexual Orientation Not on file documented as of this encounter Miscellaneous Notes * Cerner Conversion Note - Leyda Clark MD - 09/29/2018 1:10 PM CDT [facility] Main OR PreOp Summary Primary Physician: SAMAN THOMPSON MD Finalized Date/Time: 09/29/18 14:31:44 Pt. Name: MELINDA APONTE /Sex: 1975 Female Med Rec #: [id number] Physician: SAMAN THOMPSON MD Financial #: [id number] Pt. Type: O Room/Bed: [facility]/4 Admit/Disch: 09/29/18 11:27:00 - [place] [facility] [place] PreOp Case Times Entry 1 In Preop 09/29/18 11:40:00 Ready for Holding n/a Room Patient Ready for 09/29/18 12:26:00 Surgery Patient Out of Preop 09/29/18 14:19:00 Patient Out of n/a Holding Room Last Modified By: ALYSE MIKE 09/29/18 14:31:43 SJJosef PreOp Case Times Audit 09/29/18 14:31:43 Bread Baker: HILLARY Modifier: CATLETDD <+> 1 Patient Out of Preop Finalized By: ALYSE MIKE Document Signatures Signed By: ALYSE MIKE 09/29/18 14:31 documented in this encounter Plan of Treatment Not on file documented as of this encounter Visit Diagnoses Not on filedocumented in this encounter
--- OUTSIDE RECORDS SUMMARY | 2024-09-21 12:55 | XMS_ITS | Encounter Summary ---
Author Organization [employer] ([place], [place], [place], [place]) Address [address] [place] [address] Care Team Providers Care Can Vacuum Tester Name Role Phone Unavailable Primary Care Provider Unavailabl e Encounter Details Date Type Department Care Team (Late st Contact Info) Description 05/25/2018 Transcribed Document [facility] [place] [address] [place] [address] ProviderLeyda MD [address] [place] [address] Social History Tobacco Use Types Packs/Day Years Used Date Smoking Tobacco: Never Assessed Comments Unknown Sex and Gender Information Value Date Recorded Sex Assigned at Not on file Legal Sex Female 6:21 PM CDT Gender Identity Not on file Sexual Orientation Not on file documented as of this encounter Miscellaneous Notes * Cerner Conversion Note - Leyda ProviderMD - 05/25/2018 3:15 PM CDT Discharge [...] Nely Vitale Rn - 05/25/2018 15:15 EDT documented in this encounter Plan of Treatment Not on file documented as of this encounter Visit Diagnoses Not on filedocumented in this encounter
--- OUTSIDE RECORDS SUMMARY | 2024-09-21 12:55 | XMS_ITS | Encounter Summary ---
Author Organization [employer] ([place], [place], [place], [place]) Address [address] [place] [address] Care Team Providers Care Business Services Tech Name Role Phone Unavailable Primary Care Provider Unavailabl e Encounter Details Date Type Department Care Team (Late st Contact Info) Description 09/29/2018 Transcribed Document [facility] [place] [address] [place], [place] [id number] ProviderLeyda MD [address] [place] [address] Social History Tobacco Use Types Packs/Day Years Used Date Smoking Tobacco: Never Assessed Comments Unknown Sex and Gender Information Value Date Recorded Sex Assigned at Not on file Legal Sex Female 6:21 PM CDT Gender Identity Not on file Sexual Orientation Not on file documented as of this encounter Miscellaneous Notes * Cerner Conversion Note - Historical ProviderMD - 09/29/2018 11:53 AM CDT Pediatric Growth Entered On: 09/29/2018 11:54 EDT Performed On: 09/29/2018 11:53 EDT by Carissa Pulido [facility] Unit Coord Height and Weight, Clinical Dosing Weight Source : Standing scale Weight Entry Format : [place] Clinical Dosing Weight : 79.55 kg Weight, Pounds : 175 lb Carissa Pulido [facility] Unit Coord - 09/29/2018 11:53 EDT documented in this encounter Plan of Treatment Not on file documented as of this encounter Visit Diagnoses Not on filedocumented in this encounter
--- OUTSIDE RECORDS SUMMARY | 2024-09-21 12:55 | XMS_ITS | Encounter Summary ---
Author Organization [employer] ([place], [place], [place], [place]) Address [address] [place] [address] Care Team Providers Care Lining Printer Name Role Phone Unavailable Primary Care Provider Unavailabl e Encounter Details Date Type Department Care Team (Late st Contact Info) Description 03/26/2021 Transcribed Document [facility] [place] Family Medicine [address] [place] [address] ProviderLeyda MD [address] [place], [place] [address] Social History Tobacco Use Types Packs/Day Years [...] Date Tyrone rded Speak language other than Vincentian at home Not on file 03/25/2023 Want [...] Conversion Note - Historical ProviderMD - 03/26/2021 1:42 PM BEEF FARMER [facility] [place] [address] MELINDA APONTE :1975 Visit Time:03/26/2021 What to [...] TOMAS When 04/01/2021 09:45 AM EST Comments zoom f/u 1 week Where: [address] [facility] [address] [place] [address]- Business (1) Medications What How Much When Instructions Next Dose acetaminophen-hydrocodone (acetaminophen-HYDROcodone 325 mg-5 mg oral tablet) 1-2 tabs Oral Every 6 Hours as needed for for pain Pickup at [facility] ondansetron (Zofran 4 mg oral tablet) 1 Tablet(s) Oral Every 8 Hours as needed for Nausea Pickup at [facility] estradiol 2 Milligram(s) Oral Every Day magnesium citrate Oral Every Day omeprazole 40 Milligram(s) Oral Every Day Pharmacy Information [facility]: [address] [place], [place] [id number] [phone] Take your medications faithfully. Do NOT skip [...] these instructions at home: Medicines ??? Take adut-pgn-gayugrz and prescription medicines only as told by [...] your pee (urine) pale yellow. ? Take myvy-vyk-hevhgii or prescription medicines. ? Eat foods that [...] cannot use soap and water, use hand foot doctor. ? Change your bandage as told by [...] provider. Document Revised: 02/05/2020 Document Reviewed: 02/05/2020 [employer] Patient Education ?? 2020 [employer] Inc. Outpatient Surgery, Adult, Care After This sheet [...] children on your own. Medicines ??? Take woct-diy-rvyappr and prescription medicines only as told by [...] keep your urine pale yellow. ? Take nuvg-dyg-govghln or prescription medicines. ? Eat foods that [...] added (diluted fruit juice). ? Eat bland, atrd-le-tlqknj foods in small amounts as you are [...] and water are not available, use hand foot doctor. ? Change your dressing as told by [...] drink clear fluids slowly and eat bland, dqnh-hn-nioawl foods in small amounts. ??? Ask your health care provider what activities are safe for you. This information is not intended to replace advice given to you by your health care provider. Make sure you discuss any questions you have with your health care provider. Document Revised: 06/20/2020 Document Reviewed: 12/13/2019 Elsevier Patient Education ?? 2020 Elsevier Inc. Emergency Awareness and Preventative Care STROKE [...] Assistance with quitting is available by contacting 0-484-AQXANOW. This is a free resource providing counseling, [...] CPR? There are two easy steps: Call 9-1-1 if you see a teen or adult [...] Visit Patient Name:MELINDA APONTE I have received this information and was given the opportunity to ask questions. Patient/Fur Floor Worker Name: Patient/Fur Floor Worker Signature: Relationship to Patient: Clinician/Hospital Fur Floor Worker Signature: Date: Electronically signed by Interface, [facility] Conversion Manager Package Hali at 06/22/2022 9:27 AM CDT documented in this encounter Plan of Treatment Not on file documented as of this encounter Visit Diagnoses Not on filedocumented in this encounter
--- OUTSIDE RECORDS SUMMARY | 2024-09-21 12:55 | XMS_ITS | Encounter Summary ---
Author Organization [employer] ([place], [place], [place], [place]) Address [address] [place] [address] Care Team Providers Care Indigo Mixer Name Role Phone Unavailable Primary Care Provider Unavailabl e Encounter Details Date Type Department Care Team (Late st Contact Info) Description 03/26/2021 Transcribed Document [facility] [place] [address] [place] [address] ProviderLeyda MD [address] [place], [place] [address] Social History Tobacco Use Types Packs/Day Years [...] Date Tyrone rded Speak language other than Mauritanian at home Not on file 03/25/2023 Want [...] Conversion Note - Historical ProviderMD - 03/26/2021 11:01 AM COREMAKER APPRENTICE [facility] Main OR Preop Summary Primary Physician: MARY TOMAS MD-SUR Finalized Date/Time: 03/26/21 12:33:31 Pt. Name: MELINDA APONTE /Sex: 1975 Female Med Rec #: [id number] Physician: MARY TOMAS MD-SUR Financial #: [id number] Pt. Type: O Room/Bed: Admit/Disch: 03/26/21 08:37:00 - Institution: [facility] PreOp Case Times Entry 1 In Preop 03/26/21 08:56:00 Ready for Holding n/a Room Patient Ready for 03/26/21 10:22:00 Surgery Patient Out of Preop 03/26/21 10:31:00 Patient Out of n/a Holding Room Last Modified By: Linda May Rn 03/26/21 12:33:29 [facility] PreOp Case Times Audit 03/26/21 12:33:29 Media Manager: REYNA Modifier: MFWARD <+> 1 Patient Out of Preop 03/26/21 10:22:05 Media Manager: MFWARD Modifier: MFWARD <+> 1 Patient Ready for Surgery Finalized By: Linda May Rn Document Signatures Signed By: Linda May Rn 03/26/21 12:33 Electronically signed by Serafin [facility] Conversion Overlock Operator Cerner at 06/22/2022 9:24 AM CDT documented in this encounter Plan of Treatment Not on file documented as of this encounter Visit Diagnoses Not on filedocumented in this encounter
--- OUTSIDE RECORDS SUMMARY | 2024-09-21 12:55 | XMS_ITS | Encounter Summary ---
Author Organization [employer] ([place], [place], [place], [place]) Address [address] [place] [address] Care Team Providers Care Masonry Instructor Name Role Phone Unavailable Primary Care Provider Unavailabl e Encounter Details Date Type Department Care Team (Late st Contact Info) Description 09/30/2018 Transcribed Document [facility] [place] Medicine [address] [place] [address] ProviderLeyda MD [address] [place] [address] Social History Tobacco Use Types Packs/Day Years Used Date Smoking Tobacco: Never Assessed Comments Unknown Sex and Gender Information Value Date Recorded Sex Assigned at Not on file Legal Sex Female 6:21 PM CDT Gender Identity Not on file Sexual Orientation Not on file documented as of this encounter Miscellaneous Notes * Cerner Conversion Note - Leyda ProviderMD - 09/30/2018 2:00 AM CDT Contract Technical Writer Details Entered On: 09/30/2018 0:46 EDT Performed [...]
--- OUTSIDE RECORDS SUMMARY | 2024-09-21 12:55 | XMS_ITS | Encounter Summary ---
Author Organization [employer] ([place], [place], [place], [place]) Address [address] [place] [address] Care Team Providers Care Cotton Picker Name Role Phone Unavailable Primary Care Provider Unavailabl e Encounter Details Date Type Department Care Team (Late st Contact Info) Description 09/04/2019 Transcribed Document [facility] [place] [address] [place] [address] ProviderLeyda MD [facility] [place], [place] [address] Social History Tobacco Use Types Packs/Day Years Used Date Smoking Tobacco: Never Assessed Comments Unknown Sex and Gender Information Value Date Recorded Sex Assigned at Not on file Legal Sex Female 6:21 PM CDT Gender Identity Not on file Sexual Orientation Not on file documented as of this encounter Miscellaneous Notes * Cerner Conversion Note - Leyda ProviderMD - 09/04/2019 9:00 AM CDT [facility] Alyssa PreOp Summary Primary Physician: ZINA STEELE MD-GAE Finalized Date/Time: 09/04/19 09:27:22 Pt. Name: MELINDA APONTEO.B./Sex: 1975 Female Med Rec #: [id number] Physician: ZINA STEELE MD-GAE Financial #: [id number] Pt. Type: O Room/Bed: END/ Admit/Disch: 09/04/19 08:25:00 - Institution: [facility] Alyss[facility] PreOp Case Times Entry 1 In Preop 09/04/19 08:54:00 Ready for Holding n/a Room Patient Ready for 09/04/19 09:26:00 Surgery Patient Out of Preop 09/04/19 09:26:00 Patient Out of n/a Holding Room Last Modified By: Seema Sheriff RN 09/04/19 09:27:18 Finalized By: Seema Sheriff RN Document Signatures Signed By: Seema Sheriff RN 09/04/19 09:27 Electronically signed by Serafin [facility] Conversion Assistant Merchandiser Cerner at 06/22/2022 9:18 AM CDT documented in this encounter Plan of Treatment Not on file documented as of this encounter Visit Diagnoses Not on filedocumented in this encounter
--- OUTSIDE RECORDS SUMMARY | 2024-09-21 12:55 | XMS_ITS | Encounter Summary ---
Author Organization [employer] ([place], [place], [place], [place]) Address [address] [place] [address] Care Team Providers Care Windows Desktop Engineer Name Role Phone Unavailable Primary Care Provider Unavailabl e Encounter Details Date Type Department Care Team (Late st Contact Info) Description 09/03/2019 Transcribed Document [facility] [place] [address] [place] [address] ProviderLeyda MD [facility] [place] [address] Social History Tobacco Use Types Packs/Day Years [...] Source : Stated Height Entry Format : [place] Height, Feet : 5 ft(Converted to: 152 cm, 60 Inch) Height, Inches : 1 Inch(Converted to: 0 ft 1 Inch, 2.54 cm) Clinical Height : 154.94 cm [place] Body Weight : 47 kg Vivian Torres RN - 09/03/2019 16:46 EDT Health Histories Smoking Status : Never (less than 100 in lifetime; none in last 30 days) Smokeless Tobacco Status : Never Implant/Device Type, Theater Usher and Model : Vivian Muller RN - [...] Vivian Torres RN - 09/03/2019 16:46 EDT Bates Suicide Severity Rating Scale (C-SSRS) CSSRS Past [...] #2 Relationship : na Primary Language : Andorran Preferred Communication Mode : Verbal Communication Barrier : None Microphone Boom Operator Needed : No Vivian Torres RN - [...] Scale Risk Level : 0-24 Low Risk [place] Fall Interventions : Hourly comfort/safety rounds, Non-slip footwear, Reinforced to call for assistance before getting out of bed Vivian Torres RN - 09/03/2019 16:46 EDT documented in this encounter Plan of Treatment Not on file documented as of this encounter Visit Diagnoses Not on filedocumented in this encounter
--- OUTSIDE RECORDS SUMMARY | 2024-09-21 12:55 | XMS_ITS | Clinical Summary ---
Author Organization [facility] Address [address] [place] [address] Care Team Providers Care Carton And Can Supply Supervisor Name Role Phone Bill Lamar MD Primary Care Provider [phone] Allergies Active Allergy Reactions Criticality Noted Date Comments Lamotrigine Hives,Palpitations High 08/31/2021 Levofloxacin Nausea,Other - pleas e document in the comment field,Palpitations,Vomiting Low 11/28/2023 [place] Other - please docum ent in the [...] 1 (one) time each day. 4 Active Collagen-Keyser- Hyaluronic Acid (Move Free [employer]ostics Joint [employer]) 40-5-3.3 MG tablet Active busPIRone (Buspar) 10 [...] mg) by mouth. 4 09/21/19 25 Active Problems Problem Noted Date Diagnosed Date [...] 11/28/2023 2:20 PM EDT Plan of Treatment Upcoming Encounters Date Type Department Care Team ([facility] st Contact Info) Description 09/27/2024 2:40 PM EDT Office Visit [facility] [address], [address] [place] [address] Mitul Garza MD [address] [place] [address] Health Maintenance Due Date Last Done Comments [facility]-HIV Screening 1975 [facility]-Hepatitis C Screening 1975 [facility]-Infant/Child/Adol SDOH Screenings 1975 [facility]- SDOH Screenings 1991 [facility]-Adult SDOH Screenings 1991 [facility]-DTaP,Tdap,and Td Vaccines (1 - Tdap) 01/31/1992 [facility]-Hepatitis B Vaccines (1 of 3 - 19+ 3-dose series) 01/31/1992 CT Colonography 2018 Colonoscopy 2018 FIT-DNA 2018 FIT 2018 FOBT 2018 Sigmoidoscopy 2018 [facility]-Colorectal Cancer Screening 2018 [facility]-Pneumococcal Vaccine: 50+ Years (1 of 1 - PCV) 2023 [facility]-Zoster Vaccines (1 of 2) 2023 [facility]-Depression Screening 06/01/2024 06/02/2023 [facility]-Influenza Vaccine (#1) 11/05/202412/23, 01/23/2023, 01/19/2022 [facility]-Breast Cancer Screening 06/15/2025 04/03/2023, 06/16/2023, 04/13/2022, Additional history exists [facility]-Obesity Intervention Completed 024, 06/02/2023, 06/02/2023, Additional history exists [id number] Vaccine Completed 12/24/2023, 01/23/2023, 12/12/2021, Additional history exists HPV Vaccines Aged Out [...] to: 01/22/2019 Mammography Outside Images Upload at [employer] 08/28/2019 Mammography Outside Images Upload at [employer] 01/24/2020 Mammography Outside Images Upload at [employer] 03/10/2021 Mammography Outside Images Upload at [employer] BREAST COMPOSITION: The breasts have scattered areas of fibroglandular density. FINDINGS: There are silicone gel, intact retro-pectoral implant(s) present in bilateral breasts. There is no evidence of suspicious masses, calcifications, or other abnormal findings. us Bill Lamar MD IMG BI PROCEDURES Final Resul t from Last 3 Months or Most Recently Relevant to Health Maintenance Insurance [facility] Care Teams Carton And Can Supply Supervisor Relationship Specialty Start Date End Date Bill Lamar MD [address] [place] [address] PCP - General 04/13/22
--- OUTSIDE RECORDS SUMMARY | 2024-09-21 12:55 | XMS_ITS | Encounter Summary ---
Author Organization [employer] ([place], [place], [place], [place]) Address [address] [place] [address] Care Team Providers Care Canned Food Reconditioning Inspector Name Role Phone Unavailable Primary Care Provider Unavailabl e Encounter Details Date Type Department Care Team (Late st Contact Info) Description 03/26/2021 Transcribed Document [facility] [place] [address] [place] [address] ProviderLeyda MD [address] [place], [place] [id number] Social History Tobacco Use Types Packs/Day Years [...] Date Tyrone rded Speak language other than [place] at home Not on file 03/25/2023 Want [...] - Historical ProviderMD - 03/26/2021 11:01 AM GRITTING MACHINE OPERATOR [facility] Main OR PACU Summary Primary Physician: MARY TOMAS MD-SUR Finalized Date/Time: 03/26/21 12:51:40 Pt. Name: MELINDA APONTE /Sex: 1975 Female Med Rec #: [id number] Physician: MARY TOMAS MD-SUR Financial #: [id number] Pt. Type: O Room/Bed: Admit/Disch: 03/26/21 08:37:00 - Institution: [facility] Main OR PACU I Case Times Entry 1 In PACU I 03/26/21 11:50:00 Ready for PACU 03/26/21 12:51:00 Discharge Discharge from PACU 03/26/21 12:51:00 I Last Modified By: YAIMA CHAPIN RN 03/26/21 12:51:07 Finalized By: YAIMA CHAPIN, RN Document Signatures Signed By: YAIMA CHAPIN RN 03/26/21 12:51 Electronically signed by [facility] Conversion Remittance Clerk Cerner at 06/22/2022 9:25 AM CDT documented in this encounter Plan of Treatment Not on file documented as of this encounter Visit Diagnoses Not on filedocumented in this encounter
--- OUTSIDE RECORDS SUMMARY | 2024-09-21 12:55 | XMS_ITS | Encounter Summary ---
Author Organization [employer] ([place], [place], [place], [place]) Address [address] [place] [address] Care Team Providers Care Physician Assistant Surgery Name Role Phone Unavailable Primary Care Provider Unavailabl e Encounter Details Date Type Department Care Team (Late st Contact Info) Description 09/29/2018 Transcribed Document [facility] [address] [place] [address] ProviderLeyda MD [address] [place] [address] Social History Tobacco Use Types Packs/Day Years Used Date Smoking Tobacco: Never Assessed Comments Unknown Sex and Gender Information Value Date Recorded Sex Assigned at Not on file Legal Sex Female 6:21 PM CDT Gender Identity Not on file Sexual Orientation Not on file documented as of this encounter Miscellaneous Notes * [employer] Conversion Note - Historical ProviderMD - 09/29/2018 5:00 PM CDT Chart Check - Review Order Profile Entered On: 09/29/2018 18:15 EDT Performed On: 09/29/2018 17:00 EDT by Shahnaz Trujillo Rn Chart Check Powerplans Initiated/Discontinued as Appropriate : Yes All Active Orders Reviewed : Yes Shahnaz Trujillo Rn - 09/29/2018 18:15 EDT Electronically signed by Ernesto Betancourt Conversion Quality Improvement Consultant Hali at 06/22/2022 9:16 AM CDT documented in this encounter Plan of Treatment Not on file documented as of this encounter Visit Diagnoses Not on filedocumented in this encounter
--- OUTSIDE RECORDS SUMMARY | 2024-09-21 12:55 | XMS_ITS | Clinical Summary ---
Author Organization [facility] Address [address] [place] [address] Care Team Providers Care Brick Or Block Maker Name Role Phone Ward Somers MD Unavailable Bill Lamar MD Primary Care Provider [phone] Allergies Active Allergy Reactions Criticality Noted Date Comments Lamotrigine Hives,Itching,Palpit atio ns High 08/31/2021 Other Reaction(s): Not available [place] Hives Low 10/28/2021 Other Reaction(s): Not available, Other - please document in the comment field Swollen neck Swollen neck Medications acetaminophen (Tylenol 8 Hour) 650 MG ER tablet Take 650 mg by mouth every 8 (eight) hours if needed. Active Collagen-[place]- Hyaluronic Acid (Move Free Convertro) 40-5-3.3 MG tablet Active Cequa 0.09 % solution 06/24/2022 Active estradiol (Estrace) 2 MG tablet Active estradiol (Vagifem) 10 MCG tablet vaginal tablet Activ e hydroxychloroqu ine (Plaquenil) 200 MG tablet Take 1 tablet by mouth 1 (one) time each day. 08/31/2022 Active Magnesium 500 MG tablet Active Melatonin 12 MG tablet Take 24 mg by mouth every night. Active polyethylene glycol (Glycolax) 17 GM/SCOOP powder Take 17 g by mouth 1 (one) time each day. Active amitriptyline (Elavil) 25 MG tablet Take 2 tablets (50 mg total) by mouth 1 (one) time each day. 180 tablet 3 01/18/2023 Active busPIRone (Buspar) 10 MG tablet Take 1 tablet (10 mg total) by mouth 2 (two) times a day. 180 tablet 1 06/14/2023 Active dexlansoprazole (Dexilant) [address] capsule Take 1 capsule (60 mg total) by mouth 1 (one) time each day. Do not crush or chew. 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 Family History Medical History Relation Name Comments Hyperlipidemia Father Mc Mckay Hypertension Father Mc Mckay Hyperlipidemia Mother Rohini Mckay Hypertension Mother Rohini Mckay Heart attack Paternal Grandfather Mariano Mckay Diabetes Paternal Grandmother Izabel Mckay Relation Name Status Comments Father Mc Mckay Mother Rohini Mckay Paternal Grandfather Mariano Mckay Paternal Grandmother Izabel Mckay Social History Tobacco Use Types Packs/Day Years Used Date Smoking Tobacco: Never Passive Smoke Exposure: Never Smokeless Tobacco: Never Alcohol Use Standard Drinks/Week Comments Yes 2 (1 standard drink = 0.6 oz pur e alcohol) Comments Unknown Sex and Gender Information Value Date Recorded Sex Assigned at Not on file Legal Sex Female 4:03 PM EDT Gender Identity Not on file Sexual Orientation Not on file Last Filed Vital Signs Vital Sign Reading Time Taken Comments Blood Pressure 137/84 01/18/2023 10:12 AM EST Pulse 89 01/18/2023 10:12 AM EST Temperature - - Respiratory Rate - - Oxygen Saturation 96% 01/18/2023 10: 12 AM EST Inhaled Oxygen Concentration - - Weight 82.9 kg (182 lb 12.8 oz) 023 10:12 AM EST Height 154.9 cm (5' 1 ) 01/18/2023 10:1 2 AM EST Body Mass Index 34.54 01/18/2023 10:12 AM EST Plan of Treatment Health Maintenance Due Date Last Done Comments CT Colonography 1973 FIT-DNA (Cologuard) 1975 FIT 1975 FOBT 1975 HIV Screening 1975 Hepatitis C Screening 1975 Sigmoidoscopy 1975 MMR Vaccines (1 of 1 - Standard series) 1974 Hepatitis B Screening 1991 DTaP/Tdap/Td Vaccines (1 - Tdap) 01/31/1992 Hepatitis B Vaccines (1 of 3 - 19+ 3-dose series) 01/31/1992 Pneumococcal Vaccine: 50+ Years (1 of 1 - PCV) 2023 Zoster Vaccines (1 of 2) 2023 Mammogram 04/13/2023 04/13/2022 COVID-19 Vaccine ( - season) 2023 01/23/2023, 12/12/2021, 07/17/2021, Additional history exists Depression Risk Screening 03/07/2024 SDOH Screening 03/07/2024 Influenza Vaccine (#1) 2024 3, 01/22/2023, 01/19/2022 Colonoscopy 04/29/2033 04/29/2023 Colorectal Cancer Screening 04/29/2033 HIB Vaccines Aged Out No longer eligi ble based on patient's age to complete this topic HPV Vaccines Aged Out No longer eligi ble based on patient's age to complete this topic Hepatitis A Vaccines Aged Out No long er eligible based on patient's age to complete this topic IPV Vaccines Aged Out No longer eligi ble based on patient's age to complete this topic Meningococcal B Vaccine Aged Out No l onger eligible based on patient's age to complete this topic Meningococcal Vaccine Aged Out No tabatha doroteo eligible based on patient's age to complete this topic Rotavirus Vaccines Aged Out No longer eligible based on patient's age to complete this topic Procedures Procedure Name Priority Date/Time Associated Diagnosis Comments COLON EGD 04/29/2023 11:06 AM EST from Last 3 Months or Most Recently Relevant to Health Maintenance Results * COLON EGD (04/29/2023 11:06 AM EST) Anatomical Region Laterality Modality Endoscopy Narrative Procedure Note Pepe Green MD - 04/29/2023 11:06 AM EST Patient: MELINDA APONTE Age: 48 Years Sex: Female : 1975 PROCEDURE(S): EGD/Colonoscopy INDICATION(S): Silveira's esophagus Gastroparesis Colon cancer screening PHYSICIAN(S): Primary Surgeon Pepe Green - Attending Eitan Valentino - Fellow The Attending Physician was present throughout the entire procedure. SEDATION: MAC: [x] MODERATE: [_] MEDICATIONS GIVEN: Per Anesthesia Prior to the procedure, a history and directed physical exam wasperformed. The patient's medications and allergies reviewed. The patientwas competent, risks and benefits of the procedure and sedation optionsand risks were discussed with the patient. All questions were answered,and informed consent was obtained. Patient identification and proposedprocedure were verified by the nurse and physician in the procedureroom. Patient was on previous anticoagulants or antiplatelets: [x] no, [_]yes ASA-GRADE ASSESSMENT: [_] 1 [_] 2 [x] 3 [_] 4 [_] 5 MENTAL STATUS EXAMINATION: Alert and oriented. AIRWAY EXAM: Normal. CARDIOVASCULAR: Normal. RESPIRATORY: Normal. DESCRIPTION OF PROCEDURE(S): After review of the risks and benefits, thepatient was deemed in satisfactory condition to undergo the procedure.Immediately prior to the procedure, the patient was reassessed foradequacy of the received sedation. The patient's heart rate, respiratoryrate, oxygen saturation, blood pressure, adequacy of pulmonary ventilationresponse to care were monitored throughout the entire procedure. Thephysical status of the patient was reassessed after the procedure. After obtaining informed consent, the scope was passed under directvision. The endoscope was introduced through the mouth and advanced to the[x_] second part of duodenum [_] third part of duodenum [_] proximaljejunum. The upper GI endoscopy was accomplished without difficulty. Thepatient tolerated the procedure well The colonoscope was introduced through the rectum and advanced to the [x_]cecum [_] terminal ileum. The colonoscopy was accomplished withoutdifficulty. The prep quality was [_] adequate [_x] inadequate fordetecting small polyps. Scope retrieval was at least 6 minutes withoutcounting interventions unless otherwise noted. The patient tolerated theprocedure well. EGD FINDING(S): 1. Small hiatal hernia with single < 1 cm tongue of salmon coloredmucosa - biopsies obtained 2. Single, 2 mm sessile polyp proximal gastric body - removed with coldbiopsy forceps 3. Normal small bowel mucosa COLONOSCOPY FINDING(S): 1. Appendiceal orifice and ileo-cecal valve identified 2. Mild sigmoid diverticulosis 3. Hypertrophied anal papillae 4. Small external hemorrhoids ESTIMATED BLOOD LOSS: None LIMITATION(S): None ADVERSE EVENT(S): None SPECIMEN(S) COLLECTED: Gastric polyp Esophageal biopsy RECOMMENDATION(S): 1. Repeat colonoscopy in 10 years for screening Electronically Signed on04/29/2023 12:16 [facility] Pepe Green MD ENDOSCOPY PROCEDURE ORDERABLE S Final Result from Last 3 Months or Most Recently Relevant to Health Maintenance Insurance [facility] Care Teams Brick Or Block Maker Relationship Specialty Start Date End Date Bill Lamar MD [address] [address] [place] [address] PCP - General Internal Medicine 07/07/22 Ward Somers MD [address] [facility] [facility] [place] [address] Referring Physician Gastroenterology 07/07/22
--- OUTSIDE RECORDS SUMMARY | 2024-09-21 12:55 | XMS_ITS | Clinical Summary ---
Author Organization [facility] Address [address] [place] [address] Care Team Providers Care Voucher Clerk Name Role Phone Bill Lamar MD Primary Care Provider [phone] Allergies Active Allergy Reactions Criticality Noted Date Comments Lamotrigine Hives,Palpitations High 08/31/2021 [place] Other (See Comments) 10/28/2021 Swollen neck Medications acetaminophen (TYLENOL) 650 MG 8 hr tablet Active famotidine (PEPCID) 40 MG tablet Active Npckga-Wjuoj-Fdmg Ac-Ca Fructo (Move Free Joint Health Advance) tablet Acti ve Ibuprofen 200 MG capsule Active Magnesium 500 MG tablet Active pantoprazole (PROTONIX) 40 MG EC tablet 08/31/2021 Active estradiol (ESTRACE) 2 MG tablet 11/04/2021 Active hydroxychloroquine (PLAQUENIL) 200 MG tablet 10/14/2021 Active amitriptyline (ELAVIL) 10 MG tablet 10/28/2021 Active Family History Medical History Relation Name Comments Anesthesia problems Father Mc Mckay Heart rhythm Breast cancer Maternal Aunt Jasper Abel Cancer Maternal Aunt Jasper Abel Breast Cancer Breast cancer Maternal Grandmother Machokimberley Live Cancer Maternal Grandmother Theresa Live Breast Cancer; Lung Cancer Rheumatologic disease Mother Rohini Mckay Thyroi d Rheumatologic disease Paternal Aunt Nessa Valle Lupus Diabetes Paternal Grandmother Izabel Mckay Rheumatologic disease Paternal Grandmother Izabel Magallanesjulee t Thyroid Ovarian cancer Neg Hx Relation Name Status Comments Father Mc Mckay Maternal Aunt Jasper Abel Maternal Grandmother Theresa Mancini Mother Rohini Mckay Paternal Aunt Nessa Valle Paternal Grandmother Izabel Mckay Social History Tobacco Use Types Packs/Day Years Used Date Smoking Tobacco: Never Smokeless Tobacco: Never Alcohol Use Standard Drinks/Week Comments Yes 2 (1 standard drink = 0.6 oz pur e alcohol) Comments No Sex and Gender Information Value Date Recorded Sex Assigned at Not on file Legal Sex Female 1:36 PM EDT Gender Identity Not on file Sexual Orientation Not on file Last Filed Vital Signs Vital Sign Reading Time Taken Comments Blood Pressure 120/72 11/05/2021 2:38 PM EDT Pulse - - Temperature - - Respiratory Rate - - Oxygen Saturation - - Inhaled Oxygen Concentration - - Weight 78.5 kg (173 lb) 12/10/2021 10:22 AM EDT Height 154.9 cm (5' 0.98 ) 12/10/2021 10:22 AM E DT Body Mass Index 32.71 12/10/2021 10:22 AM EDT Plan of Treatment Health Maintenance Due Date Last Done Comments Annual Gynecologic Pelvic an d Breast Exam 1975 TDAP/TD VACCINES (1 - Tdap) 01/31/1992 COLOGUARD 2018 COLON CANCER SCREENING 5 YEA R SIGMOID[address]COPY [address] COLONOGRAPHY 2018 FECAL OCCULT BLOOD TEST 2018 FIT Testing (1 year) 2018 ANNUAL PHYSICAL 11/04/2021 Pneumococcal Vaccine 50+ (1 of 1 - PCV) 2023 ZOSTER VACCINE (1 of 2) 2023 INFLUENZA VACCINE 12/05/2024 12/24/2023, , 01/19/2022 MAMMOGRAM 06/15/2025 06/16/2023, 09/2022, 04/13/2022, Additional history exists COLONOSCOPY 01/08/2034 01/09/2024, 06/2023, 04/29/2023 COLORECTAL CANCER SCREENING 01/08/2034 COVID-19 Vaccine Completed 12/24/2023, , 12/12/2021, Additional history exists HEPATITIS C SCREENING Completed 01/09/2024 , 09/01/2021, 09/01/2021 Procedures Procedure Name Priority Date/Time Associated Diagnosis Comments MAMMO SCREENING DIGITAL TOMOSYNTHESIS BILATERAL W CAD Routine 06/16/2023 11:29 AM EDT Visit for screening mammogram from Last 3 Months or Most Recently Relevant to Health Maintenance Results * Mammo Screening Digital Tomosynthesis Bilateral With CAD (06/16/2023 11:29 AM EDT) Anatomical Region Laterality Modality Breast N/A Mammography 06/29/2023 2:20 PM EDT Impressions 06/29/2023 2:24 PM EDT No mammographic findings suspicious for malignancy. RECOMMENDATION: 1. Continue annual screening mammography. 2. Consider genetic counseling for additional risk assessment and possible genetic testing due to the positive maternal family history of breast cancer involving second-degree relatives. If the patient's lifetime risk of developing breast cancer is 20% or greater she would be a candidate for annual high risk screening MRI along with annual screening mammography. BI-RADS CATEGORY 1, NEGATIVE. CAD was utilized. The standard false-negative rate of mammography is between 10% and 25%. Complex patterns or increased breast density will markedly elevate the false-negative rate of mammography. A letter, in lay terminology, with the results of this exam will be mailed to the patient. This report was finalized on 06/29/2023 2:[address] Josi Leo MD. Narrative 06/29/2023 2:24 PM EDT BILATERAL SCREENING MAMMOGRAM WITH TOMOSYNTHESIS: HISTORY: 48-year-old patient with no personal history of breast cancer and no new breast complaints. Her maternal grandmother and a maternal aunt were diagnosed with breast cancer. The patient indicates that she has not undergone genetic counseling. TECHNIQUE: Bilateral CC and MLO low dose, full field digital mammographic images were obtained with tomosynthesis. COMPARISON: Outside mammograms from the [facility] dated 04/13/2022 and from [facility] dated 03/10/2021, 01/24/2020, 08/28/2019, 01/22/2019, and 01/19/2018. FINDINGS: The breast tissue is almost entirely fatty in density. There are bilateral retropectoral silicone implants with stable and unremarkable contours. The fibroglandular pattern is stable. There are no suspicious masses, worrisome calcifications, nonsurgical areas of architectural distortion, or other secondary signs of malignancy. us Linnette Norton MD IMG MAMMOGRAPHY ORDERABLES F inal Result from Last 3 Months or Most Recently Relevant to Health Maintenance Insurance [facility] PPO Care Teams Voucher Clerk Relationship Specialty Start Date End Date Bill Lamar MD PCP - General Internal Medicine 11/05/21
--- OUTSIDE RECORDS SUMMARY | 2024-09-21 12:55 | XMS_ITS | Encounter Summary ---
Author Organization [employer] ([place], [place], [place], [place]) Address [address] [place] [address] Care Team Providers Care Sales Assistant Displays Name Role Phone Unavailable Primary Care Provider Unavailabl e Encounter Details Date Type Department Care Team (Late st Contact Info) Description 09/29/2018 Transcribed Document [facility] Family Medicine [address] [place] [address] ProviderLeyda MD [facility] [place], [place] [address] Social History Tobacco Use Types Packs/Day Years Used Date Smoking Tobacco: Never Assessed Comments Unknown Sex and Gender Information Value Date Recorded Sex Assigned at Not on file Legal Sex Female 6:21 PM CDT Gender Identity Not on file Sexual Orientation Not on file documented as of this encounter Miscellaneous Notes * Cerner Conversion Note - Leyda Clark MD - 09/29/2018 2:43 PM CDT E Main OR PACU Summary Primary Physician: SAMAN THOMPSON MD Finalized Date/Time: 09/29/18 17:17:29 Pt. Name: MELINDA APONTEO.B./Sex: 1975 Female Med Rec #: [id number] Physician: SAMAN THOMPSON MD Financial #: [id number] Pt. Type: O Room/Bed: [facility]/ Admit/Disch: 09/29/18 11:27:00 - [place] [facility] [place] Case Times Entry 1 In PACU I 09/29/18 15:48:00 Ready for PACU 09/29/18 16:45:00 Discharge Discharge from PACU 09/29/18 17:10:00 I Last Modified By: Michelle Toribio Rn Patient Care Bedside 09/29/18 17:01:52 [facility] Main OR PACU Case Times Audit 09/29/18 17:17:13 Dermatology Technician: SCOUT Modifier: [email or web address] <+> 1 Discharge from PACU I 09/29/18 17:01:52 Dermatology Technician: SCOUT Modifier: [email or web address] <+> 1 Ready for PACU Discharge [facility] Main OR PACU Acuity Entry 1 Start Time 09/29/18 16:45:00 Stop Time 09/29/18 17:10:00 Acuity Level [facility] PACU Acuity I Last Modified By: Michelle Toribio Rn Patient Care Bedside 09/29/18 17:01:58 [facility] Main OR PACU Acuity Audit 09/29/18 17:17:22 Dermatology Technician: SCOUT Modifier: [email or web address] <+> 1 Stop Time Finalized By: Michelle Toribio Rn Patient Care Bedside Document Signatures Signed By: Michelle Toribio Rn Patient Care Bedside 09/29/18 17:17 documented in this encounter Plan of Treatment Not on file documented as of this encounter Visit Diagnoses Not on filedocumented in this encounter
--- OUTSIDE RECORDS SUMMARY | 2024-09-21 12:55 | XMS_ITS | Encounter Summary ---
Author Organization [employer] ([place], [place], [place], [place]) Address [address] [place] [address] Care Team Providers Care Security Door Installer Name Role Phone Unavailable Primary Care Provider Unavailabl e Encounter Details Date Type Department Care Team (Late st Contact Info) Description 03/25/2021 Transcribed Document [facility] Family Medicine [address] [place] [address] ProviderLeyda MD [address] [place], [place] [address] Social History Tobacco Use Types Packs/Day Years [...] Date Tyrone rded Speak language other than Citizen [place] at home Not on file 03/25/2023 Want [...] - Historical ProviderMD - 03/25/2021 2:18 PM DEBT COLLECTION SPECIALIST PAT Adult Entered On: 03/25/2021 14:20 EST Performed On: 03/25/2021 14:18 EST by Linda May Rn Height and Weight, Clinical Dosing Height Source : Measured Height Entry Format : [place] Height, Feet : 5 ft(Converted to: 152 cm, 60 Inch) Height, Inches : 1 Inch(Converted to: 0 ft 1 Inch, 2.54 cm) Clinical Height : 154.94 cm Weight Source : Standing scale Weight Entry Format : [place] Clinical Dosing Weight : 81.08 kg Weight, Pounds : 178 lb Weight, Ounces : 6 oz Body Surface Area (BSA) : 1.8 m2 Body Mass Index : 33.8 kg/m2 (HI) [place] Body Weight : 47 kg Linda May Rn - 03/26/2021 9:05 EST Health Histories Smoking Status : Never (less than 100 in lifetime; none in last 30 days) Smokeless Tobacco Status : Never Implant/Device Type, Metal Casket Assembler and Model : denies Linda May Rn - 03/25/2021 14:18 EST [...] Linda May Rn - 03/25/2021 14:18 EST [place] Suicide Severity Rating Scale (C-SSRS) CSSRS Past [...] #2 Relationship : na Primary Language : Citizen [place] Preferred Communication Mode : Verbal Communication Barrier : None Garment Folder Needed : No Linda May Rn - [...] Linda May Rn - 03/25/2021 14:18 EST Electronically signed by Ernesto Betancourt Conversion Invoicing Machine Operator Cerner at 06/22/2022 9:41 AM CDT documented in this encounter Plan of Treatment Not on file documented as of this encounter Visit Diagnoses Not on filedocumented in this encounter
--- OUTSIDE RECORDS SUMMARY | 2024-09-21 12:55 | XMS_ITS | Encounter Summary ---
Author Organization [employer] ([place], [place], [place], [place]) Address [address] [place] [address] Care Team Providers Care Cone Marker Name Role Phone Unavailable Primary Care Provider Unavailabl e Encounter Details Date Type Department Care Team (Late st Contact Info) Description 09/29/2018 Transcribed Document [facility] Family Medicine [address] [place] [address] ProviderLeyda MD [address] [place] [id number] Social History Tobacco Use Types Packs/Day Years Used Date Smoking Tobacco: Never Assessed Comments Unknown Sex and Gender Information Value Date Recorded Sex Assigned at Not on file Legal Sex Female 6:21 PM CDT Gender Identity Not on file Sexual Orientation Not on file documented as of this encounter Miscellaneous Notes * Cerner Conversion Note - Leyda Clark MD - 09/29/2018 3:35 PM CDT Pain Assessment [...] form. Electronically signed by Ernesto Betancourt Conversion Educational Technology Coordinator Cerner at 06/22/2022 9:25 AM CDT documented in this encounter Plan of Treatment Not on file documented as of this encounter Visit Diagnoses Not on filedocumented in this encounter
--- OUTSIDE RECORDS SUMMARY | 2024-09-21 12:55 | XMS_ITS | Encounter Summary ---
Author Organization [employer] ([place], [place], [place], [place]) Address [address] [place] [address] Care Team Providers Care Business Management Professor Name Role Phone Unavailable Primary Care Provider Unavailabl e Encounter Details Date Type Department Care Team (Late st Contact Info) Description 09/29/2018 Transcribed Document [facility] Family Medicine [address] [place] [address] ProviderLeyda MD [address] [place] [address] Social History Tobacco Use Types Packs/Day Years [...] form. Electronically signed by Ernesto Betancourt Conversion Credit Control Administrator Cerner at 06/27/2022 1:10 PM CDT documented in this encounter Plan of Treatment Not on file documented as of this encounter Visit Diagnoses Not on filedocumented in this encounter
--- OUTSIDE RECORDS SUMMARY | 2024-09-21 12:55 | XMS_ITS | Encounter Summary ---
Author Organization [employer] ([place], [place], [place], [place]) Address [address] [place] [address] Care Team Providers Care Car Rental Clerk Name Role Phone Unavailable Primary Care Provider Unavailabl e Encounter Details Date Type Department Care Team (Late st Contact Info) Description 05/25/2018 Transcribed Document [facility] [place] Family Medicine [address] [place] [address] ProviderLeyda MD [address] [place] [address] Social History Tobacco Use Types Packs/Day Years Used Date Smoking Tobacco: Never Assessed Comments Unknown Sex and Gender Information Value Date Recorded Sex Assigned at Not on file Legal Sex Female 6:21 PM CDT Gender Identity Not on file Sexual Orientation Not on file documented as of this encounter Miscellaneous Notes * Cerner Conversion Note - Historical ProviderMD - 05/25/2018 3:16 PM CDT Nursing Discharge Summary Entered On: 05/25/2018 15:16 EDT Performed On: 05/25/2018 15:16 EDT by Nely Vitale Power System Operator Documentation Patient Disposition, General : Discharge Discharge [...]
--- OUTSIDE RECORDS SUMMARY | 2024-09-21 12:55 | XMS_ITS | Encounter Summary ---
Author Organization [employer] ([place], [place], [place], [place]) Address [address] [place] [address] Care Team Providers Care Dining Car Waiter/Waitress Name Role Phone Unavailable Primary Care Provider Unavailabl e Encounter Details Date Type Department Care Team (Late st Contact Info) Description 03/26/2021 Transcribed Document [facility] [place] [address] [place] [address] ProviderLeyda MD [address] [place], [place] [address] Social History Tobacco Use Types Packs/Day Years [...] Date Tyrone rded Speak language other than [place] at home Not on file 03/25/2023 Want [...] - Historical ProviderMD - 03/26/2021 11:01 AM FAMILY ASSESSMENT WORKER [facility] Main OR PostOp Summary Primary Physician: MARY TOMAS MD-SUR Finalized Date/Time: 03/26/21 14:29:16 Pt. Name: MELINDA APONTE /Sex: 1975 Female Med Rec #: [id number] Physician: MARY TOMAS MD-SUR Financial #: [id number] Pt. Type: O Room/Bed: Admit/Disch: 03/26/21 08:37:00 - Institution: [facility] Main OR PostOp Case Times Entry 1 In PACU II 03/26/21 12:57:00 Ready for PACU II 03/26/21 14:25:00 Discharge Discharge from PACU 03/26/21 14:25:00 II Last Modified By: MARINO BLUM RN 03/26/21 14:29:08 Finalized By: MARINO BLUM, RN Document Signatures Signed By: MARINO BLMU RN 03/26/21 14:29 Electronically signed by Serafin [facility] Conversion Financial Analyst Accountant Cerner at 06/22/2022 9:26 AM CDT documented in this encounter Plan of Treatment Not on file documented as of this encounter Visit Diagnoses Not on filedocumented in this encounter
--- OUTSIDE RECORDS SUMMARY | 2024-09-21 12:55 | XMS_ITS | Encounter Summary ---
Author Organization [employer] ([place], [place], [place], [place]) Address [address] [place] [address] Care Team Providers Care Leather Leveler Name Role Phone Unavailable Primary Care Provider Unavailabl e Encounter Details Date Type Department Care Team (Late st Contact Info) Description 09/29/2018 Transcribed Document [facility] Family Medicine [address] [place] [address] ProviderLeyda MD [facility] [place] [address] Social History Tobacco Use Types Packs/Day Years [...] Obtained From : Patient Primary Language : Bahraini Preferred Communication Mode : Verbal Communication Barrier [...] Scale Risk Level : 25-45 Medium Risk [place] Fall Interventions : Adequate lighting, Assistive devices [...] Smokeless Tobacco Status : Never Implant/Device Type, Lens Blank Gauger and Model : laurenceteddy Shahnaz Trujillo Rn - 09/29/2018 18:12 EDT [...] Source : Stated Height Entry Format : Denali Height, Feet : 5 ft(Converted to: 152 cm, 60 Inch) Height, Inches : 1 Inch(Converted to: 0 ft 1 Inch, 2.54 cm) Clinical Height : 154.94 cm Weight Source : Standing scale Weight Entry Format : Denali Clinical Dosing Weight : 79.55 kg Weight, Pounds : 175 lb Body Surface Area (BSA) : 1.79 m2 Body Mass Index : 33.1 kg/m2 (HI) [place] Body Weight : 47 kg Shahnaz Trujillo [...] EDT Electronically signed by Ernesto Betancourt Conversion Energy And Sustainability Manager Cerner at 06/22/2022 9:15 AM CDT documented in this encounter Plan of Treatment Not on file documented as of this encounter Visit Diagnoses Not on filedocumented in this encounter
--- OUTSIDE RECORDS SUMMARY | 2024-09-21 12:55 | XMS_ITS | Encounter Summary ---
Author Organization [employer] ([place], [place], [place], [place]) Address [address] [place] [address] Care Team Providers Care Script Worker Name Role Phone Unavailable Primary Care Provider Unavailabl e Encounter Details Date Type Department Care Team (Late st Contact Info) Description 03/26/2021 Transcribed Document [facility] [place] [address] [place] [address] ProviderLeyda MD [address] [place], [place] [address] Social History Tobacco Use Types Packs/Day Years [...] Date Tyrone rded Speak language other than Indonesian at home Not on file 03/25/2023 Want [...] Conversion Note - Historical ProviderMD - 03/26/2021 12:15 PM LETTER OF CREDIT CLERK Patient Education Materials Follows: Minimally Invasive Cholecystectomy, [...] these instructions at home: Medicines ??? Take dlce-uyy-zvzduog and prescription medicines only as told by [...] your pee (urine) pale yellow. ? Take giqg-pdj-dyjlxnq or prescription medicines. ? Eat foods that [...] cannot use soap and water, use hand vp strategic partnerships. ? Change your bandage as told by [...] provider. Document Revised: 02/05/2020 Document Reviewed: 02/05/2020 Electrikus Patient Education ? 2020 Petsy. Procedures Outpatient Surgery, Adult, Care After This [...] children on your own. Medicines ??? Take huar-gkm-fvfdmub and prescription medicines only as told by [...] keep your urine pale yellow. ? Take gegf-hku-tmsdals or prescription medicines. ? Eat foods that [...] added (diluted fruit juice). ? Eat bland, jmmg-tn-vtyqrp foods in small amounts as you are [...] and water are not available, use hand vp strategic partnerships. ? Change your dressing as told by [...] drink clear fluids slowly and eat bland, hugv-yo-uikkug foods in small amounts. ??? Ask your health care provider what activities are safe for you. This information is not intended to replace advice given to you by your health care provider. Make sure you discuss any questions you have with your health care provider. Document Revised: 06/20/2020 Document Reviewed: 12/13/2019 Elsevier Patient Education ? 2020 Electrikus Inc. documented in this encounter Plan of Treatment Not on file documented as of this encounter Visit Diagnoses Not on filedocumented in this encounter
--- OUTSIDE RECORDS SUMMARY | 2024-09-21 12:55 | XMS_ITS | Encounter Summary ---
Author Organization [employer] ([place], [place], [place], [place]) Address [address] [place] [address] Care Team Providers Care Logistics And Planning Manager Name Role Phone Unavailable Primary Care Provider Unavailabl e Encounter Details Date Type Department Care Team (Late st Contact Info) Description 05/25/2018 Transcribed Document [facility] [place] [facility] [place] [address] ProviderLeyda MD [address] [place] [id number] Social History Tobacco Use Types Packs/Day Years [...] Clark MD - 05/25/2018 3:21 PM CDT [address], [place] [address] Patient Copy Patient Information: Name: MELINDA APONTE Current Date: 05/25/2018 15:21:13 : 1975 Patient Address: [facility] [address] [facility] [address] Patient Attending Physician: ZINA STEELE MD-[facility] Primary Care Provider: Bill Lamar MD Primary [...] getting enough exercise. ??? Smoking. ??? Taking tceh-jeb-mdhtcjn pain medicines, like aspirin and ibuprofen. SYMPTOMS [...] 11/18/2004 Document Revised: 02/26/2014 Document Reviewed: 01/16/2014 Richmedia Interactive Patient Education ? 2017 Projectioneering. Colonoscopy, Adult, Care After This sheet gives [...] slower pace than normal. ? Eat soft, lefa-wl-tghrfs foods. ? Rest often. ??? Take cjcz-ggo-gtguufd or prescription medicines only as told by [...] 10/05/2004 Document Revised: 11/15/2016 Document Reviewed: 05/04/2016 ElseZafu Interactive Patient Education ? 2017 Richmedia Inc. Hiatal Hernia A hiatal hernia occurs [...] symptoms. ??? Medicines. These may include: ? Iyfx-nqf-henopmv antacids. ? Medicines that make your stomach [...] These may include: ? Fatty foods. ? Wright fruits. ? Other foods and drinks that [...] 05/13/2004 Document Revised: 06/14/2016 Document Reviewed: 02/08/2014 Richmedia Interactive Patient Education ? 2017 [employer]ering. Gastric Polyps A gastric polyp, also called [...] Follow these instructions at home: ??? Take kyov-tjf-lkcttjy and prescription medicines only as told by [...] 02/07/2013 Document Revised: 07/12/2016 Document Reviewed: 03/07/2016 Richmedia Interactive Patient Education ? 2017 Richmedia 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 ? [place] or spicy foods. ? Chocolate and peppermint. General instructions ??? Take mjol-vpk-egfpjir and prescription medicines only as told by [...] Assistance with quitting is available by contacting 0-312-EOFF-NOW. This is a free resource providing counseling, [...] sure to sign up for the My [facility]eneStreamCare patient portal, which gives you 27/09 access to your medical information ??? including these discharge instructions ??? using your computer, smartphone, or tablet. Just go to [email or web address] to get started. Questions? Call . [facility] would like to thank you for allowing us to assist you with your healthcare needs. I, MELINDA APONTE, (or veterans contact representative) have received the above patient education materials/instructions and have verbalized understanding: Patient Signature _ Date/Time Patient Director Of Aviation Signature (if needed) Date/Time Clinician/Hospital Director Of Aviation Signature (if needed) Date/Time documented in this encounter Plan of Treatment Not on file documented as of this encounter Visit Diagnoses Not on filedocumented in this encounter
--- OUTSIDE RECORDS SUMMARY | 2024-09-21 12:55 | XMS_ITS | Encounter Summary ---
Author Organization [employer] ([place], [place], [place], [place]) Address [address] [place] [address] Care Team Providers Care Hand Spring Former Name Role Phone Unavailable Primary Care Provider Unavailabl e Encounter Details Date Type Department Care Team (Late st Contact Info) Description 03/26/2021 Transcribed Document [facility] [place] Family Medicine [address] [place] [address] ProviderLeyda MD [address] [place], [place] [address] Social History Tobacco Use Types Packs/Day Years [...] Date Tyrone rded Speak language other than [place] Islander at home Not on file 03/25/2023 Want [...] Conversion Note - Historical ProviderMD - 03/26/2021 11:52 AM CRANE MANAGER DATE OF PROCEDURE: 03/26/2021 SURGEON: Marvin Baum MD PREOPERATIVE DIAGNOSIS: Symptomatic cholelithiasis. POSTOPERATIVE DIAGNOSIS: Symptomatic cholelithiasis. PROCEDURES: 1. Laparoscopic cholecystectomy. 2. ICG monitoring. COMMERCIAL HOUSEKEEPER: Smith Mora. ANESTHESIA: General endotracheal. FINDINGS: The [...] The subxiphoid fascial defect was closed with klaucc-kg-jxnak 0 Vicryl stitch. Skin incisions were closed with 4-0 Monocryl in a subcuticular fashion followed by Dermabond. The patient tolerated the procedure well. There were no immediate complications. Sponge and needle counts were correct. She was taken to Recovery in stable condition. /[id number] MD BILLY Nichols/PAMELLA / BILLY / SEAN /[id number] documented in this encounter Plan of Treatment Not on file documented as of this encounter Visit Diagnoses Not on filedocumented in this encounter
--- OUTSIDE RECORDS SUMMARY | 2024-09-21 12:55 | XMS_ITS | Encounter Summary ---
Author Organization [employer] ([place], [place], [place], [place]) Address [address] [place] [address] Care Team Providers Care Instructor Nurse Name Role Phone Unavailable Primary Care Provider Unavailabl e Encounter Details Date Type Department Care Team (Late st Contact Info) Description 05/25/2018 Transcribed Document [facility] [place] Family Medicine [address] [place] [address] ProviderLeyda MD [facility] [place], [place] [address] Social History Tobacco Use Types Packs/Day Years [...] APONTE /Sex: 1975 Female Med Rec #: [id number] Physician: ZINA STEELE MD-GAE Financial #: [id number] Pt. Type: O Room/Bed: [facility] Admit/Disch: 05/25/18 12:46:00 - 05/25/18 16:10:00 Institution: [facility] PACU Case Times Entry 1 In PACU I 05/25/18 15:03:00 Ready for PACU 05/25/18 16:16:00 Discharge Discharge from PACU 05/25/18 16:16:00 Kath Shah PACU Case Times Audit 05/25/18 16:17:31 Executive Vice President And Chief Operating Officer: [id number] Modifier: [id number] <+> 1 Ready for PACU Discharge <+> 1 Discharge from PACU I Finalized By: Nely Vitale Rn Document Signatures Signed By: Nely Vitale Rn 05/25/18 16:17 Electronically signed by Ernesto Betancourt Conversion Management Trainee Marketing Cerner at 06/22/2022 9:34 AM CDT documented in this encounter Plan of Treatment Not on file documented as of this encounter Visit Diagnoses Not on filedocumented in this encounter
--- OUTSIDE RECORDS SUMMARY | 2024-09-21 12:55 | XMS_ITS | Encounter Summary ---
Author Organization [employer] ([place], [place], [place], [place]) Address [address] [place] [address] Care Team Providers Care Endoscopy Support Specialist Name Role Phone Unavailable Primary Care Provider Unavailabl e Encounter Details Date Type Department Care Team (Late st Contact Info) Description 05/25/2018 Transcribed Document [facility] [place] [facility] [place] [address] ProviderLeyda MD [address] [place] [id number] Social History Tobacco Use Types Packs/Day Years [...] Clark MD - 05/25/2018 3:53 PM CDT [address], [place] [address] Patient Copy Patient Information: Name: MELINDA APONTE Current Date: 05/25/2018 15:53:57 : 1975 Patient Address: [facility] [address] [facility] [address] Patient Attending Physician: ZINA STEELE MD-[facility] Primary Care Provider: Bill Lamar MD Primary Care Provider Discharge Diagnosis: 1:Epigastric pain Weight on Admission: 170 lb, 2 oz Comment: Follow-up Instructions: With: Address: When: [place] [address] [place] [address] Business (1) Within As needed Comments: [...] getting enough exercise. ??? Smoking. ??? Taking jxqg-tic-djachrd pain medicines, like aspirin and ibuprofen. SYMPTOMS [...] 11/18/2004 Document Revised: 02/26/2014 Document Reviewed: 01/16/2014 Hosted America Interactive Patient Education ? 2017 Aethlon Medical. Colonoscopy, Adult, Care After This sheet gives [...] slower pace than normal. ? Eat soft, toca-cy-vtgsoc foods. ? Rest often. ??? Take vend-alw-euepsrf or prescription medicines only as told by [...] 10/05/2004 Document Revised: 11/15/2016 Document Reviewed: 05/04/2016 Hosted America Interactive Patient Education ? 2017 Hosted America Inc. Hiatal Hernia A hiatal hernia occurs [...] symptoms. ??? Medicines. These may include: ? Twjl-kys-zpgggtg antacids. ? Medicines that make your stomach [...] These may include: ? Fatty foods. ? [place] fruits. ? Other foods and drinks that [...] 05/13/2004 Document Revised: 06/14/2016 Document Reviewed: 02/08/2014 Hosted America Interactive Patient Education ? 2017 Hosted America Inc. Gastric Polyps A gastric polyp, also [...] Follow these instructions at home: ??? Take gigt-ezg-bqeaedt and prescription medicines only as told by [...] 02/07/2013 Document Revised: 07/12/2016 Document Reviewed: 03/07/2016 Elsevier Interactive Patient Education ? 2017 ElseFaceBuzz 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 ? [place] or spicy foods. ? Chocolate and peppermint. General instructions ??? Take athz-nmz-qkhjjmc and prescription medicines only as told by [...] a broken bone while taking this medicine oysterman or more than once per day. What [...] by infection with Helicobacter pylori (H. pylori). Ewlh-hjk-nqwoyxd (OTC) omeprazole is used to help control [...] medicine exactly as directed. Use Prilosec OTC (ckkv-gwd-rbupyqx) exactly as directed on the label, or [...] may report side effects to FDA at 3-383-YHH-4246. What other drugs will affect omeprazole? Sometimes [...] may affect omeprazole. This includes prescription and kear-lzb-wjybzrh medicines, vitamins, and herbal products. Not all [...] to ensure that the information provided by FlexScore. ('Multum') is accurate, up-to-date, and complete, but no guarantee is made to that effect. Drug information contained herein may be time sensitive. avox information has been compiled for use by healthcare practitioners and consumers in the [place] and therefore avox does not warrant that uses outside of the [place] are appropriate, unless specifically indicated otherwise. Konkuras drug information does not endorse drugs, diagnose patients or recommend therapy. Synata drug information is an informational resource designed [...] effective or appropriate for any given patient. [facility] does not assume any responsibility for any aspect of healthcare administered with the aid of information avox provides. The information contained herein is not intended to cover all possible uses, directions, precautions, warnings, drug interactions, allergic reactions, or adverse effects. If you have questions about the drugs you are taking, check with your doctor, nurse or pharmacist. Copyright 5176-3839 FlexScore. Version: 19.01. Revision Date: 08/29/2017. hyoscyamine (genaro oh NICOLE a anjana) Dorian Cuevas, Hydanielee, Levbid, Levsin, NuLev, Symax SR What is the most [...] may report side effects to FDA at 5-187-OTL-5903. What other drugs will affect hyoscyamine? Tell [...] drugs may affect hyoscyamine, including prescription and maou-rbt-odxwzvw medicines, vitamins, and herbal products. Not all [...] to ensure that the information provided by FlexScore. ('Multum') is accurate, up-to-date, and complete, but no guarantee is made to that effect. Drug information contained herein may be time sensitive. avox information has been compiled for use by healthcare practitioners and consumers in the [place] and therefore avox does not warrant that uses outside of the [place] are appropriate, unless specifically indicated otherwise. Konkuras drug information does not endorse drugs, diagnose patients or recommend therapy. Synata drug information is an informational resource designed [...] effective or appropriate for any given patient. avox does not assume any responsibility for any aspect of healthcare administered with the aid of information avox provides. The information contained herein is not intended to cover all possible uses, directions, precautions, warnings, drug interactions, allergic reactions, or adverse effects. If you have questions about the drugs you are taking, check with your doctor, nurse or pharmacist. Copyright 6395-6946 FlexScore. Version: 7.01. Revision Date: 01/24/2018. linaclotide (LACEY [...] may report side effects to FDA at 1-094-DKL-9528. What other drugs will affect linaclotide? Other drugs may interact with linaclotide, including prescription, bwks-vkm-ukflhre, vitamin, and herbal products. Tell your doctor [...] to ensure that the information provided by FlexScore. ('Multum') is accurate, up-to-date, and complete, but no guarantee is made to that effect. Drug information contained herein may be time sensitive. Top Ropstum information has been compiled for use by healthcare practitioners and consumers in the [place] and therefore OpenPortalum does not warrant that uses outside of the [place] are appropriate, unless specifically indicated otherwise. avox's drug information does not endorse drugs, diagnose patients or recommend therapy. avox's drug information is an informational resource designed [...] effective or appropriate for any given patient. [facility] does not assume any responsibility for any aspect of healthcare administered with the aid of information [facility] provides. The information contained herein is not intended to cover all possible uses, directions, precautions, warnings, drug interactions, allergic reactions, or adverse effects. If you have questions about the drugs you are taking, check with your doctor, nurse or pharmacist. Copyright 0186-8314 FlexScore. Version: 4.02. Revision Date: 11/23/2016. CIGARETTE SMOKING: The facts are clear, cigarette smoking will shorten your life. Smoking can cause many illnesses along the way. As a healthcare provider, we recommend that you stop smoking. Assistance with quitting is available by contacting 6-587-AAOQKynetxNOW. This is a free resource providing counseling, [...] Be sure to sign up for the ClarityAd patient portal, which gives you 27/09 access to your medical information ??? including these discharge instructions ??? using your computer, smartphone, or tablet. Just go to Picklive to get started. Questions? Call . [facility] would like to thank you for allowing us to assist you with your healthcare needs. HECTOR [place] SHANNON CRAFT, (or medical service representative) have received the above patient education materials/instructions and have verbalized understanding: Patient Signature _ Date/Time Patient Rn Icu Signature (if needed) Date/Time Clinician/Hospital Rn Icu Signature (if needed) Date/Time documented in this encounter Plan of Treatment Not on file documented as of this encounter Visit Diagnoses Not on filedocumented in this encounter
--- OUTSIDE RECORDS SUMMARY | 2024-09-21 12:55 | XMS_ITS | Encounter Summary ---
Author Organization [employer] ([place], [place], [place], [place]) Address [address] [place] [address] Care Team Providers Care Adult Education Teacher Name Role Phone Unavailable Primary Care Provider Unavailabl e Encounter Details Date Type Department Care Team (Late st Contact Info) Description 05/25/2018 Transcribed Document [facility] [place] Family Medicine [address] [place] [address] [facility] [place] [address] Social History Tobacco Use Types Packs/Day Years Used Date Smoking Tobacco: Never Assessed Comments Unknown Sex and Gender Information Value Date Recorded Sex Assigned at Not on file Legal Sex Female 6:21 PM CDT Gender Identity Not on file Sexual Orientation Not on file documented as of this encounter Miscellaneous Notes * Cerner Conversion Note - Leyda Clark MD - 05/25/2018 3:22 PM CDT Nursing Discharge [...] Nely Vitale Rn - 05/25/2018 15:22 EDT documented in this encounter Plan of Treatment Not on file documented as of this encounter Visit Diagnoses Not on filedocumented in this encounter
--- OUTSIDE RECORDS SUMMARY | 2024-09-21 12:55 | XMS_ITS | Patient Health Record ---
Author Organization [facility] Address [address] [place] [address] Care Team Providers Care Film Historian Name Role Phone Linnette Norton Unavailable [phone] Allergies Allergen (clinical drug ingredient) Drug/Non Drug [...] findings Encounters Encounter Location Date Provider Diagnosis [facility] [address] [place] [address] 09/23/2023 Linnette Norton Seismograph Observer exam without abnormal findings Z01.419 Assessments Encounter Date Diagnosis (ICD Code) Assessment Notes Treatment Notes Treatment Clinical Notes Section Notes 09/23/2023 Seismograph Observer exam without abnormal findings (ICD-10 - Z01.419) Plan Of Treatment No Information Insurance Providers Payer Name Payer Address Payer Phone Subscriber Number Group Number Insured Name Patient Relationship to Insured Coverage Start Date Coverage End Date [place] P[employer] [address] [place] [address] [id number] Melinda Aponte Self - patient is the insured Medical (General) History Medical History History ICD Code Acid Reflux Anxiety / Depression Blood transfusions Uterine fibroid Irritable Bowel Fatigue Insomnia Hernia Surgical History Surgery Date(Month/Year) vestibulectomy 2005 breast lift/augmentation TRH hernia repair 09/2018 Hospitalization History Reason Date(Month/Year) c/s
--- OUTSIDE RECORDS SUMMARY | 2024-09-21 12:55 | XMS_ITS | Encounter Summary ---
Author Organization [employer] ([place], [place], [place], [place]) Address [address] [place] [address] Care Team Providers Care Entrepreneur Name Role Phone Unavailable Primary Care Provider Unavailabl e Encounter Details Date Type Department Care Team (Late st Contact Info) Description 05/25/2018 Transcribed Document [facility] [place] [facility] [address] ProviderLeyda MD [address] [place] [id number] Social History Tobacco Use Types Packs/Day Years [...] WOODY /Sex: 1975 Female Med Rec #: [id number] Physician: ZINA STEELE MD-GAE Financial #: [id number] Pt. Type: O Room/Bed: [facility] Admit/Disch: 05/25/18 12:46:00 - Institution: [facility] [place] Alyssa - Case Attendance Entry 1 Entry 2 Entry 3 Case Attendee ZINA STEELE MD-GAE SHERMAN, YVONNE D., RN TALIB HERNANDES NA Role Performed Surgeon/Proceduralist, Franchise Consultant, First CASE RESOURCE MANAGER/Nurse Hospice Administrator First Time In 05/25/18 14:10:00 05/25/18 13:56:00 05/25/18 13:56:00 Time Out 05/25/18 14:59:00 05/25/18 14:59:00 05/25/18 14:59:00 Procedure Colonoscopy, Colonoscopy, Colonoscopy, Esophagogastroduodenosco Esophagogastroduodenosco Esophagogastroduodenosco py, Duodenal Biopsy, py, Duodenal Biopsy, py, Duodenal Biopsy, Gastric Polypectomy, Gastric Polypectomy, Gastric Polypectomy, Colon Biopsy Colon Biopsy Colon Biopsy Other Attendee Superficial Wound Closed By: Last Modified By: TOÑO SILVA, TÑOO HENDRIX, TOÑO HENDRIX, RN 05/25/18 14:58:08 05/25/18 14:58:08 05/25/18 14:58:08 Entry 4 Case Attendee ZINA DUVALL RN Role Performed Scrub, First Time In 05/25/18 13:56:00 Time Out 05/25/18 14:59:00 Procedure Colonoscopy, Esophagogastroduodenosco py, Duodenal Biopsy, Gastric Polypectomy, Colon Biopsy Other Attendee Superficial Wound Closed By: Last Modified By: TOÑO SILVA, KOLE 05/25/18 14:58:08 [facility] - Case Attendance Audit 05/25/18 14:58:08 Rug Repairer: VIKTORIA Modifier: VIKTORIA 1 <+> Time Out [...] Biopsy, Gastric Polypectomy, Colon Biopsy 05/25/18 14:53:22 Rug Repairer: VIKTORIA Modifier: VIKTORIA 1 <*> Procedure Colonoscopy, Esophagogastroduodenoscopy, Duodenal Biopsy, Gastric Polypectomy 2 <*> Procedure Colonoscopy, Esophagogastroduodenoscopy, Duodenal Biopsy, Gastric Polypectomy 3 <*> Procedure Colonoscopy, Esophagogastroduodenoscopy, Duodenal Biopsy, Gastric Polypectomy 4 <*> Procedure Colonoscopy, Esophagogastroduodenoscopy, Duodenal Biopsy, Gastric Polypectomy 05/25/18 14:20:26 Rug Repairer: VIKTORIA Modifier: SHERMAYD <+> 2 Procedure 3 <*> Procedure Colonoscopy, Esophagogastroduodenoscopy, Duodenal Biopsy 4 <*> Procedure Colonoscopy, Esophagogastroduodenoscopy, Duodenal Biopsy 05/25/18 14:20:25 Rug Repairer: VIKTORIA Modifier: SHERMAYD 1 <*> Procedure Colonoscopy, Esophagogastroduodenoscopy, Duodenal Biopsy 2 <-> Procedure Colonoscopy, Esophagogastroduodenoscopy, Duodenal Biopsy 05/25/18 14:14:02 Rug Repairer: VIKTORIA Modifier: SHERMAYD 1 <*> Procedure Colonoscopy, Esophagogastroduodenoscopy 2 <*> Procedure Colonoscopy, Esophagogastroduodenoscopy 3 <*> Procedure Colonoscopy, Esophagogastroduodenoscopy 4 <*> Procedure Colonoscopy, Esophagogastroduodenoscopy 05/25/18 14:12:23 Rug Repairer: VIKTORIA Modifier: SHERMAYD <+> 1 Time In [...] Endo - Case Times Audit 05/25/18 14:58:01 Rug Repairer: VIKTORIA Modifier: MARCINYD <+> 1 Out Room Time <+> 1 Stop Time <+> 1 Stop Time 05/25/18 14:13:25 Rug Repairer: VIKTORIA Modifier: MARCINYD <+> 1 Start Time E Endo - Cultures and Spec Summary Entry 1 Cultrures and Specimens Specimen Ordered: Yes Specimens Types Pathology Specimen(s) Labeled Lab, Pathology and Sent to Last Modified By: TOÑO SILVA RN 05/25/18 14:15:20 General Comments: duodenal bx, gastric bx, distal esophageal bx , mid esophageal bx, gastric polyp, random colon bx E Endo - Delays Entry 1 Delay Reason Other Duration 0 Minute(s) Comment NO DELAY Last Modified By: TOÑO SILVA RN 05/25/18 13:51:19 [facility] - Departure from OR Entry 1 Integumentary Assessment Integumentary WDL Assessment WDL Transfer/Handoff Transfer to PACU Phase I Handoff Reported to Nely Vitale RN Post-op Transport Stretcher/Gurney Via Patient Transport TOÑO SILVA, KOLE, Accompanied by TALIB HERNANDES NA Last Modified By: TOÑO SILVA RN 05/25/18 13:52:59 [facility] - Endoscopy Details Entry 1 Abdomen Procedure Soft, Non-Tender Assessment Procedure Abdomen 05/25/18 13:57:00 Assessment D/T Radio Frequency Ablation Last Modified By: TOÑO SILVA RN 05/25/18 13:59:08 E Endo - Fire Risk Assessment Entry 1 Fire Info Surgical Site or 1- Yes Incision Above the Xyphoid Open O2 Source 1- Yes (Mask or Cannula) Available Ignition 1- Yes (ESU, Laser, Light Source) Fire Risk 3 Assessment Score Fire Score Fire Risk Yes Assessment Complete Fire Risk TOÑO SILVA, sound ranging crewmember Verified By Fire Risk 05/25/18 13:51:00 Assessment Verified Date/Time Fire Risk High Risk Protocol Yes Implemented Standard Fire Yes Safety Precautions Followed Last Modified By: TOÑO SILVA RN 05/25/18 13:51:59 [facility] - General Case Covered Buckle Assembler 1 Case Information OR Endo 01 E Case Level 1 Room Verified Yes Wound Class III - Contaminated Specialty SN Gastroenterology Anesthesia Type MAC ASA Class 2 Diagnosis Preop Diagnosis gerd, hx of polpys, constipation Postop Diagnosis barretts, gastric polyps, Hiatal hernia, diverticulosis, redundant colon Last Modified By: TOÑO SILVA RN 05/25/18 14:58:42 [facility] End[facility] - General Case Data Audit 05/25/18 14:58:42 Rug Repairer: VIKTORIA Modifier: SHERMAYD 1 <*> Postop Diagnosis barretts, gastric polyps, Hiatal hernia, diverticulosis, redundant colon 05/25/18 14:42:53 Rug Repairer: VIKTORIA Modifier: SHERMAYD 1 <*> Postop Diagnosis barretts, gastric polyps, Hiatal hernia, diverticulosis 05/25/18 14:29:00 Rug Repairer: VIKTORIA Modifier: SHERMAYD <+> 1 Postop Diagnosis 05/25/18 14:08:50 Rug Repairer: VIKTORIA Modifier: SHERMAYD 1 <*> OR Endo 01 SJE 1 <+> Specialty 1 <+> ASA Class 1 <+> Anesthesia Type 1 <+> Preop Diagnosis 1 <+> Room Verified [facility] End[facility] - Intraoperative Assessment Entry 1 Valid [...] Equipment Comment Last Modified By: TOÑO SILVA, TOÑO HENDRIX, KOLE 05/25/18 13:51:44 05/25/18 13:51:45 [facility] Endo - Intraoperative Equipment Audit 05/25/18 13:51:45 Rug Repairer: VIKTORIA Modifier: VIKTORIA <+> 2 Photo <+> 2 Video <+> 2 Blood Pressure Location <+> 2 Pulse Oximeter Probe Site <+> 2 Flexible Endoscopes Used <+> 2 Scope Serial Number/Identification Number [id number] Endo - Patient Positioning Entry 1 Procedure [...] Verified by Surgeon Last Modified By: TOÑO SILVA RN 05/25/18 13:52:05 [facility] Endo - Sign [...] Modified By: TOÑO SILVA, RN 05/25/18 14:57:45 [facility] Endo - Surgical Procedures Entry 1 Entry [...] MAC MAC Specialty SN Gastroenterology SN Gastroenterology SN Gastroenterology Wound Class III - Contaminated II [...] TOÑO SILVA, RN 05/25/18 14:31:55 05/25/18 14:57:29 E Endo - Surgical Procedures Audit 05/25/18 14:57:29 Rug Repairer: VIKTORIA Modifier: VIKTORIA 1 <*> Procedure Colonoscopy 1 <+> Stop 5 <*> Procedure Colon Biopsy 5 <+> Stop 05/25/18 14:53:19 Rug Repairer: VIKTORIA Modifier: VIKTORIA 1 <*> Procedure Colonoscopy 1 <+> Physician States Cecum Reached <+> 5 Procedure <+> 5 Primary Procedure <+> 5 Primary Surgeon <+> 5 Specialty <+> 5 Start <+> 5 Wound Class <+> 5 Anesthesia Type <+> 5 Physician States Cecum Reached 05/25/18 14:42:30 Rug Repairer: VIKTORIA Modifier: MARCINYD 1 <*> Procedure Colonoscopy 1 <+> Specialty 1 <*> Start 05/25/18 14:39:00 1 <+> Anesthesia Type 05/25/18 14:31:55 Rug Repairer: VIKTORIA Modifier: SHERMAYD 2 <*> Procedure Esophagogastroduodenoscopy 2 <+> Stop 3 <*> Procedure Duodenal Biopsy 3 <+> Stop 4 <*> Procedure Gastric Polypectomy 4 <+> Stop 05/25/18 14:20:23 Rug Repairer: VIKTORIA Modifier: QUINTONMAYD <+> 4 Procedure <+> 4 Primary Procedure <+> 4 Primary Surgeon <+> 4 Specialty <+> 4 Start <+> 4 Wound Class <+> 4 Anesthesia Type <+> 4 Additional Procedure Description 05/25/18 14:13:59 Rug Repairer: VIKTORIA Modifier: QUINTONMAYD <+> 1 Start 2 [...] Modified By: TOÑO SILVA RN 05/25/18 14:20:27 E Endo - Time Out Audit 05/25/18 14:20:27 Rug Repairer: VIKTORIA Modifier: MARCINYD 1 <*> Procedure to be Performed Colonoscopy, Esophagogastroduodenoscopy, Duodenal Biopsy 05/25/18 14:14:03 Rug Repairer: VIKTORIA Modifier: MARCINYD 1 <*> Procedure to be Performed Colonoscopy, Esophagogastroduodenoscopy Case Comments <None> Finalized By: TOÑO SILVA, RN Document Signatures Signed By: TOÑO SILVA RN 05/25/18 14:58 documented in this encounter Plan of Treatment Not on file documented as of this encounter Visit Diagnoses Not on filedocumented in this encounter
--- OUTSIDE RECORDS SUMMARY | 2024-09-21 12:55 | XMS_ITS | Encounter Summary ---
Author Organization [employer] ([place], [place], [place], [place]) Address [address] [place] [address] Care Team Providers Care Sql Manager Name Role Phone Unavailable Primary Care Provider Unavailabl e Encounter Details Date Type Department Care Team (Late st Contact Info) Description 05/25/2018 Transcribed Document [facility] [place] [address] [place] [address] ProviderLeyda MD [facility] [place], [place] [id number] Social History Tobacco Use Types Packs/Day Years [...] APONTE /Sex: 1975 Female Med Rec #: [id number] Physician: ZINA STEELE MD-GAE Financial #: [id number] Pt. Type: O Room/Bed: [facility] [place] Admit/Disch: 05/25/18 12:46:00 - Institution: [facility] PreOp Case Times Entry 1 In Preop 05/25/18 13:03:00 Ready for Holding n/a Room Patient Ready for 05/25/18 13:34:00 Surgery Patient Out of Preop 05/25/18 13:34:00 Patient Out of n/a Holding Room [facility] PreOp Case Times Audit 05/25/18 13:34:42 Printing Supervisor: DANI Modifier: DANI <+> 1 Patient Out of Preop <+> 1 Patient Ready for Surgery Finalized By: KAMALA MOISE RN Document Signatures Signed By: KAMALA MOISE RN 05/25/18 13:35 Electronically signed by Serafin [facility] Conversion Hardness Inspector Cerner at 06/22/2022 9:23 AM CDT documented in this encounter Plan of Treatment Not on file documented as of this encounter Visit Diagnoses Not on filedocumented in this encounter
--- OUTSIDE RECORDS SUMMARY | 2024-09-21 12:55 | XMS_ITS | Encounter Summary ---
Author Organization [employer] ([place], [place], [place], [place]) Address [address] [place] [address] Care Team Providers Care Armoured Car Escort Name Role Phone Unavailable Primary Care Provider Unavailabl e Encounter Details Date Type Department Care Team (Late st Contact Info) Description 09/29/2018 Transcribed Document [facility] [place] [address] [place] [address] ProviderLeyda MD [address] [place] [id number] Social History Tobacco Use Types Packs/Day Years [...]
--- OUTSIDE RECORDS SUMMARY | 2024-09-21 12:55 | XMS_ITS | Clinical Summary ---
Author Organization [employer] ([place], [place], [place], [place]) Address [address] [place] [address] Care Team Providers Care Composition Roofer Name Role Phone Unavailable Primary Care Provider Unavailabl e Allergies Active Allergy Reactions Criticality Noted Date Comments Lamotrigine Itching 09/16/2023 [place] 09/16/2023 Medications amitriptyline (ELAVIL) 25 MG tablet [...] (20 mg total) by mouth. 09/02/19 Active Problems Problem Noted Date Diagnosed Date [...] pur e alcohol) 3 drinks per week Food Insecurity Answer Date Recorded Food run [...] Date Tyrone rded Speak language other than Swazi at home Not on file 03/25/2023 Want [...] 01/31/1988 DTAP/TDAP/TD VACCINES (1 - Tdap) 01/31/1992 Pneumococcal 50+ years (1 of 2 - PCV) 01/31/1992 Pap Smear 1994 Lipid Panel 2018 Shingles Vaccine (Zoster) (1 of 2) 2023 COVID-19 VACCINE (2023-2 5 season) 2023 01/23/2023, 12/12/2021, 07/17/2021, Additional history exists Breast Cancer Screening 04/13/2024 04/13/19 23, 04/13/2022, 04/13/2022 Tobacco Cessation Counseling and Screening (12+) 09/15/2024 09/16/2023 Influenza Vaccine (#1) 2024 01/23/2023, 2021 Insurance BLUE CROSS/BLUE SHIELD Advance Directives For more information, please contact: [phone] * Full Code (Latest Code Status on File) Date Activated Date Inactivated Comments 09/16/2023 11:46 AM 09/17/2023 4:27 AM
--- OUTSIDE RECORDS SUMMARY | 2024-09-21 12:55 | XMS_ITS | Encounter Summary ---
Author Organization [employer] ([place], [place], [place], [place]) Address [address] [place] [address] Care Team Providers Care Prototype Model Maker Name Role Phone Unavailable Primary Care Provider Unavailabl e Encounter Details Date Type Department Care Team (Late st Contact Info) Description 09/30/2018 Transcribed Document [facility] [place] [facility] [place] [address] ProviderLeyda MD [address] [place] [phone] Social History Tobacco Use Types Packs/Day Years [...] including vitamins, herbs, eye drops, creams, and xyxq-ogc-cbwtvdo medicines. ??? Previous problems your child or [...] 08/25/2015 Elsevier Interactive Patient Education ? 2019 [employer] documented in this encounter Plan of Treatment Not on file documented as of this encounter Visit Diagnoses Not on filedocumented in this encounter
--- OUTSIDE RECORDS SUMMARY | 2024-09-21 12:55 | XMS_ITS | Encounter Summary ---
Author Organization [employer] ([place], [place], [place], [place]) Address [address] [place] [address] Care Team Providers Care Bobtail Driver Name Role Phone Unavailable Primary Care Provider Unavailabl e Encounter Details Date Type Department Care Team (Late st Contact Info) Description 09/29/2018 Transcribed Document [facility] [place] [address] [place] [address] ProviderLeyda MD [facility] [place] [address] Social History Tobacco Use Types Packs/Day Years [...] Source : Stated Height Entry Format : Adams Height, Feet : 5 ft(Converted to: 152 cm, 60 Inch) Height, Inches : 1 Inch(Converted to: 0 ft 1 Inch, 2.54 cm) Clinical Height : 154.94 cm Weight Source : Standing scale Weight Entry Format : Adams Clinical Dosing Weight : 79.55 kg Weight, Pounds : 175 lb Body Surface Area (BSA) : 1.79 m2 Body Mass Index : 33.1 kg/m2 ([place]) [place] Body Weight : 47 kg Starr Silva Rn - 09/29/2018 12:13 EDT Health Histories Smoking Status : Never (less than 100 in lifetime; none in last 30 days) Smokeless Tobacco Status : Never Implant/Device Type, Biological Chemist and Model : wong Starr Silva Rn - 09/29/2018 12:13 EDT Social History [...] Obtained From : Patient Primary Language : Cambodian Preferred Communication Mode : Verbal Communication Barrier [...] Scale Risk Level : 0-24 Low Risk [place] Fall Interventions : Adequate lighting, Bed in [...] the text rendition version of the form. [place] Coma Buzz Best Motor Response : Obey commands [place] Best Verbal Response : Oriented [place] Eye Opening Response : Spontaneous [place] Coma Score : 15 Starr Silva Rn - 09/29/2018 12:13 EDT Electronically signed by Ernesto Betancourt Conversion Digital Content Coordinator Cerner at 06/22/2022 9:17 AM CDT documented in this encounter Plan of Treatment Not on file documented as of this encounter Visit Diagnoses Not on filedocumented in this encounter
--- OUTSIDE RECORDS SUMMARY | 2024-09-21 12:55 | XMS_ITS | Encounter Summary ---
Author Organization [employer] ([place], [place], [place], [place]) Address [address] [place] [address] Care Team Providers Care Epic Prelude Analyst Name Role Phone Unavailable Primary Care Provider Unavailabl e Encounter Details Date Type Department Care Team (Late st Contact Info) Description 09/30/2018 Transcribed Document [facility] [place] [address] [place] [address] ProviderLeyda MD [address] [place] [phone] Social History Tobacco Use Types Packs/Day Years [...] Clark MD - 09/30/2018 1:42 PM CDT [place] [id number] HECTOR MELINDA GORAN :1975 Visit Time:09/29/2018 Your Visit Summary Your Care Team Admitting Physician - SAMAN THOMPSON MD-JIMY Attending Physician - SAMAN THOMPSON MD-JIMY Primary Care Physician - GONZALES AMADOR (REF), -INT Referring Physician - SAMAN THOMPSON MD-SUR Your Diagnosis Gastro-esophageal reflux disease without esophagitis, Gastro-esophageal reflux disease without esophagitis These Are Your Goals to feel better Discharge Vitals Temperature 36.7 ??C Heart Rate (Monitored) 80 Respiratory Rate 16 Blood Pressure 118/62 What to do next Instructions From Your Care Team Discharge Follow Up Instructions: followup [id number] Activity: Discharge Activity: No heavy lifting over [...] made. Where: [facility]ariat[facility] Office - PHONE [address] [facility] [address] [place] [address]- Follow Up with Follow up with primary [...] including vitamins, herbs, eye drops, creams, and mduy-mmv-poffgod medicines. ??? Previous problems your child or [...] 02/21/2006 Document Revised: 07/29/2016 Document Reviewed: 08/25/2015 [facility] Interactive Patient Education ?? 2019 [employer]. acetaminophen and hydrocodone (a SEET a MIN oh fen and genaro mirtha KOE done) Hycet, Lorcet, [place], Verdrocet, Vicodin, Xodol, Zamicet What is the [...] may report side effects to FDA at 5-118-IOD-4890. What other drugs will affect acetaminophen and [...] affect acetaminophen and hydrocodone, including prescription and hpje-srg-tueeypd medicines, vitamins, and herbal products. Not all [...] to ensure that the information provided by [employer]. ('[employer]') is accurate, up-to-date, and complete, but no guarantee is made to that effect. Drug information contained herein may be time sensitive. [employer] information has been compiled for use by healthcare practitioners and consumers in the [place] and therefore [employer] does not warrant that uses outside of the [place] are appropriate, unless specifically indicated otherwise. [employer]'s drug information does not endorse drugs, diagnose patients or recommend therapy. [employer] drug information is an informational resource designed [...] effective or appropriate for any given patient. [employer] does not assume any responsibility for any aspect of healthcare administered with the aid of information [employer] provides. The information contained herein is not intended to cover all possible uses, directions, precautions, warnings, drug interactions, allergic reactions, or adverse effects. If you have questions about the drugs you are taking, check with your doctor, nurse or pharmacist. Copyright 3197-7790 [facility] [employer]. Version: 15.02. Revision Date: 01/09/2018.ondansetron (oral) (on [...] may report side effects to FDA at 3-042-UFD-6847. What other drugs will affect ondansetron? Ondansetron [...] interact with ondansetron. This includes prescription and fkok-cow-tgrxhkm medicines, vitamins, and herbal products. Give a [...] to ensure that the information provided by [employer]. ('[employer]') is accurate, up-to-date, and complete, but no guarantee is made to that effect. Drug information contained herein may be time sensitive. [employer] information has been compiled for use by healthcare practitioners and consumers in the [place] and therefore [employer] does not warrant that uses outside of the [place] are appropriate, unless specifically indicated otherwise. [employer] drug information does not endorse drugs, diagnose patients or recommend therapy. [employer] drug information is an informational resource designed [...] effective or appropriate for any given patient. [employer] does not assume any responsibility for any aspect of healthcare administered with the aid of information [employer] provides. The information contained herein is not intended to cover all possible uses, directions, precautions, warnings, drug interactions, allergic reactions, or adverse effects. If you have questions about the drugs you are taking, check with your doctor, nurse or pharmacist. Copyright 8764-9255 [employer]. Version: 13.01. Revision Date: 12/26/2015. Emergency Awareness [...] Assistance with quitting is available by contacting 0-219-EPHC-NOW. This is a free resource providing counseling, [...] was given the opportunity to ask questions. Patient/Wire Charger Name: Patient/Wire Charger Signature: Relationship to Patient: Clinician/Hospital Wire Charger Signature: Date: documented in this encounter Plan of Treatment Not on file documented as of this encounter Visit Diagnoses Not on filedocumented in this encounter
--- OUTSIDE RECORDS SUMMARY | 2024-09-21 12:55 | XMS_ITS | Encounter Summary ---
Author Organization [employer] ([place], [place], [place], [place]) Address [address] [place] [address] Care Team Providers Care Cooker Process Cheese Name Role Phone Unavailable Primary Care Provider Unavailabl e Encounter Details Date Type Department Care Team (Late st Contact Info) Description 09/29/2018 Transcribed Document [facility] Family Medicine [address] [place] [address] ProviderLeyda MD [address] [place] [address] [id number] Social History Tobacco Use Types Packs/Day Years [...] Clark MD - 09/29/2018 2:43 PM CDT [facility] Main OR IntraOp Summary Primary Physician: SAMAN THOMPSON MD Finalized Date/Time: 09/29/18 15:47:14 Pt. Name: FADI MELINDA WOODY /Sex: 1975 Female Med Rec #: [id number] Physician: SAMAN THOMPSON MD Financial #: [id number] Pt. Type: O Room/Bed: [facility]/ Admit/Disch: 09/29/18 11:27:00 - Institution: [facility] IntraOp Case Attendance Entry 1 Entry 2 Entry 3 Case Attendee DONNA, SAMAN, MD ZARAK, NATE, MD MYRON, STEPHANIE A, NA Role Performed Surgeon/Proceduralist, Surgeon/Proceduralist, PARTS CLERK/Nurse Risk Assessment Consultant First Second Time In 09/29/18 14:23:00 09/29/18 14:23:00 09/29/18 14:23:00 Time Out 09/29/18 15:47:00 09/29/18 15:47:00 09/29/18 15:25:00 Procedure Hernia Repair Hernia Repair Hernia Repair Paraesophageal Paraesophageal Paraesophageal Laparoscopi Laparoscopi Laparoscopi Other Attendee Superficial Wound Closed By: Last Modified By: ALPHONSE PERSON, ALPHONSE PRICE, ALPHONSE PRICE, KOLE 09/29/18 15:47:11 09/29/18 15:47:11 09/29/18 15:26:01 Entry 4 Entry 5 Entry 6 Case Attendee ALPHONSE PERSON, Angelia Mejia, Scrub JAMIE CAST, Tech Surgical Orderly Role Performed Epic Application Coordinator, First Scrub, First Scrub, Second Time In 09/29/18 14:23:00 09/29/18 14:23:00 09/29/18 14:23:00 Time Out 09/29/18 15:47:00 09/29/18 15:47:00 09/29/18 15:47:00 Procedure Hernia Repair Hernia Repair Hernia Repair Paraesophageal Paraesophageal Paraesophageal Laparoscopi Laparoscopi Laparoscopi Other Attendee Superficial Wound Closed By: Last Modified By: ALPHONSE PERSON, ALPHONSE PRICE, ALPHONSE PRICE, KOLE 09/29/18 15:47:11 09/29/18 15:47:11 09/29/18 15:47:11 Entry 7 Entry 8 Entry 9 Case Attendee [facility] Holliday, Stewart R, RN KEVON HINES V, PARTS CLERK CARE Role Performed Books Binder, Ancillary Epic Application Coordinator, Second PARTS CLERK/Nurse Risk Assessment Consultant Time In 09/29/18 14:23:00 09/29/18 14:55:00 09/29/18 15:25:00 Time Out 09/29/18 15:47:00 09/29/18 15:12:00 09/29/18 15:47:00 Procedure Hernia Repair Hernia Repair Hernia Repair Paraesophageal Paraesophageal Paraesophageal Laparoscopi Laparoscopi Laparoscopi Other Attendee Superficial Wound Closed By: Last Modified By: ALPHONSE PERSON, ALPHONSE PRICE, ALPHONSE PRICE RN 09/29/18 15:47:11 09/29/18 15:13:17 09/29/18 15:47:11 [facility] IntraOp Case Attendance Audit 09/29/18 15:47:11 Entry Analyst: TIP Modifier: [email or web address] 1 <+> Time Out 1 <*> Procedure [...] Procedure Hernia Repair Paraesophageal Laparoscopi 09/29/18 15:26:01 Entry Analyst: TIP Modifier: [email or web address] 3 <+> Time Out 3 <*> Procedure Hernia Repair Paraesophageal Laparoscopi <+> 9 Case Attendee <+> 9 Role Performed <+> 9 Time In <+> 9 Procedure 09/29/18 15:13:17 Entry Analyst: TIP Modifier: [email or web address] 1 <*> Procedure Hernia Repair Paraesophageal Laparoscopi [...] [facility] IntraOp Case Times Audit 09/29/18 15:47:10 Entry Analyst: [email or web address] Modifier: [email or web address] <+> 1 Out Room Time <+> 1 Stop Time 09/29/18 15:41:42 Entry Analyst: [email or web address] Modifier: [email or web address] <+> 1 Stop Time [facility] IntraOp Cautery Entry 1 ESU Identification Cautery Type Monopolar ESU ID Number [id number] ID Type Hospital Number Cautery Settings Cut [...] [facility] IntraOp Counts Final Audit 09/29/18 15:33:34 Entry Analyst: TIP Modifier: TIP 1 <*> Procedure Hernia [...] Wound Dressing Item 2x2's Applied By Angelia Mayers Surgical Orderly Other Comments 2X2 COVAERMS TO TROCAR SITES [...] RN 09/29/18 14:47:50 [facility] IntraOp General Case Foreign Exchange Position Clerk 1 Case Information OR OR 03 [facility] [...] Other Implant TISSUE REINF FLAT SHT Identification [id number] Description Implant Quantity 1 Implant Site OPSITE Implant [id number] Identification Serial Number Implant [employer]:Med Prdt Identification Prenatal Teacher Name: Implant [id number] Identification Catalog Number Implant Has an Yes [...] IntraOp Medication Admin Entry 1 Medication/Irrigant Anesthetic Cocktail-Donna Route of LOCAL Administration Dose Dose 60 Unit of Measure ml Administered By SAMAN THOMPSON MD Procedure Irrigation Last Modified By: [...] Intra Op Sign Out Audit 09/29/18 15:47:07 Entry Analyst: TIP Modifier: [email or web address] <+> 1 RN Sign Out Signature Date/Time [facility] IntraOp Skin Prep Entry 1 Procedure Hernia Repair Paraesophageal Laparoscopi Prescribed Yes Pre-Surgical Prep Completed Prep Area ABDOMEN Intraop Prep Integumentary WDL Assessment WDL Prep Agents Chloraprep Prep by ALPHONSE PERSON RN Hair Removal Methods No hair removal performed Last Modified By: ALPHONSE PERSNO RN 09/29/18 14:49:47 [facility] IntraOp Surgical Procedures Entry 1 Procedure Hernia Repair Paraesophageal Laparoscopic Additional LAPAROSCOPIC Procedure PARAESOPHAGEAL HERNIA Description REPAIR WITH TOUPEE Primary Procedure Yes Primary Surgeon SAMAN THOMPSON MD Start 09/29/18 14:43:00 Stop 09/29/18 15:38:00 Anesthesia Type General Specialty SN General Wound Class I - Clean Last Modified By: ALPHONSE PERSON RN 09/29/18 14:49:51 [facility] IntraOp Surgical Procedures Audit 09/29/18 15:41:43 Entry Analyst: TIP Modifier: TIP <+> 1 Stop [facility] [...] Signed By: ALPHONSE PERSON RN 09/29/18 15:47 Electronically signed by Ser[facility] Conversion Humane Agent Cerner at 06/22/2022 9:32 AM CDT documented in this encounter Plan of Treatment Not on file documented as of this encounter Visit Diagnoses Not on filedocumented in this encounter
--- OUTSIDE RECORDS SUMMARY | 2024-09-21 12:55 | XMS_ITS | Encounter Summary ---
Author Organization [employer] ([place], [place], [place], [place]) Address [address] [place] [address] Care Team Providers Care Brancher Name Role Phone Unavailable Primary Care Provider Unavailabl e Encounter Details Date Type Department Care Team (Late st Contact Info) Description 05/25/2018 Transcribed Document [facility] Family Medicine [address] [place] [address] ProviderLeyda MD [address] [place] [address] Social History Tobacco Use Types Packs/Day Years Used Date Smoking Tobacco: Never Assessed Comments Unknown Sex and Gender Information Value Date Recorded Sex Assigned at Not on file Legal Sex Female 6:21 PM CDT Gender Identity Not on file Sexual Orientation Not on file documented as of this encounter Miscellaneous Notes * Cerner Conversion Note - Historical ProviderMD - 05/25/2018 1:11 PM CDT Pre Procedure Adult Entered On: 05/25/2018 13:17 EDT Performed On: 05/25/2018 13:11 EDT by KAMALA MOISE RN Height and Weight, Clinical Dosing Height Source : Stated Height Entry Format : [place] Height, Feet : 5 ft(Converted to: 152 cm, 60 Inch) Height, Inches : 1 Inch(Converted to: 0 ft 1 Inch, 2.54 cm) Clinical Height : 154.94 cm Weight Source : Standing scale Weight Entry Format : [place] Clinical Dosing Weight : 77.33 kg Weight, Pounds : 170 lb Weight, Ounces : 2 oz Body Surface Area (BSA) : 1.77 m2 Body Mass Index : 32.2 kg/m2 (HI) [place] Body Weight : 47 kg KAMALA MOISE [...] Updated: 05/25/2018 13:10:27 EDT by KAMALA MOISE, KOLE) Substance Abuse: Drug Use Hx: No. (Last [...] Obtained From : Patient Primary Language : Eritrean Preferred Communication Mode : Verbal Communication Barrier [...] Scale Risk Level : 0-24 Low Risk [place] Fall Interventions : Adequate lighting, Assistive devices within reach, Bed in low position, Call device within reach, Fall prevention handout/education per facility policy, Frequent orientation to call device, Frequent orientation to surroundings, Hourly comfort/safety rounds, Non-slip footwear, Personal items within reach, Reinforced to call for assistance before getting out of bed, Room free of clutter/spills, Upper side-rails up, Wheels locked, Wires/Cords secured KAMALA MOISE RN - 05/25/2018 13:11 EDT Valuables and Belongings [...] form. Electronically signed by Ernesto Betancourt Conversion Tool Or Die Drawing Checker Cerner at 06/22/2022 9:33 AM CDT documented in this encounter Plan of Treatment Not on file documented as of this encounter Visit Diagnoses Not on filedocumented in this encounter
--- OUTSIDE RECORDS SUMMARY | 2024-09-21 12:55 | XMS_ITS | Referral Summary ---
Author Organization [employer] ([place], [place], [place], [place]) Address [address] [place] [address] Care Team Providers Care Bankruptcy Law Specialist Name Role Phone Unavailable Primary Care Provider Unavailabl e Allergies Active Allergy Reactions Criticality Noted Date Comments Lamotrigine Itching 09/16/2023 [place] 09/16/2023 Medications amitriptyline (ELAVIL) 25 MG tablet [...] Date Tyrone rded Speak language other than Scottish at home Not on file 03/25/2023 Want [...] Advance Directives For more information, please contact: [phone] * Full Code (Latest Code Status on File) Date Activated Date Inactivated Comments 09/16/2023 11:46 AM 09/17/2023 4:27 AM
--- OUTSIDE RECORDS SUMMARY | 2024-09-21 12:55 | XMS_ITS | Encounter Summary ---
Author Organization [employer] ([place], [place], [place], [place]) Address [address] [place] [address] Care Team Providers Care Broadcast Journalist Name Role Phone Unavailable Primary Care Provider Unavailabl e Encounter Details Date Type Department Care Team (Late st Contact Info) Description 09/04/2019 Transcribed Document [facility] Family Medicine [address] [place] [address] ProviderLeyda MD [address] [place] [address] Social History Tobacco Use Types Packs/Day Years [...] Source : Stated Height Entry Format : [place] Height, Feet : 5 ft(Converted to: 152 cm, 60 Inch) Height, Inches : 1 Inch(Converted to: 0 ft 1 Inch, 2.54 cm) Clinical Height : 154.94 cm Weight Source : Standing scale Weight Entry Format : [place] Clinical Dosing Weight : 80.18 kg Weight, Pounds : 176.4 lb Body Surface Area (BSA) : 1.79 m2 Body Mass Index : 33.4 kg/m2 (HI) [place] Body Weight : 47 kg Seema Sheriff RN - 09/04/2019 9:11 EDT Health Histories Smoking Status : Never (less than 100 in lifetime; none in last 30 days) Smokeless Tobacco Status : Never Implant/Device Type, Automotive Consultant and Model : laurenceteddy Seema Sheriff RN [...] Seema Sheriff RN - 09/04/2019 9:11 EDT [place] Suicide Severity Rating Scale (C-SSRS) CSSRS Past [...] #2 Relationship : na Primary Language : Malagasy Preferred Communication Mode : Verbal Communication Barrier : None Garage Door Hanger Needed : No Seema Sheriff RN - [...] Scale Risk Level : 25-45 Medium Risk [place] Fall Interventions : Bed in low position, Call device within reach, Wheels locked Seema Sheriff RN - 09/04/2019 9:11 EDT Valuables and Belongings Valuables and Belongings : Clothing Clothing : Common streetwear Clothing Disposition : Bedside Seema Sheriff RN - 09/04/2019 9:11 EDT Electronically signed by Ernesto Betancourt Conversion Manufacturing Test Engineer Cerner at 06/22/2022 9:16 AM CDT documented in this encounter Plan of Treatment Not on file documented as of this encounter Visit Diagnoses Not on filedocumented in this encounter
--- OUTSIDE RECORDS SUMMARY | 2024-09-21 12:55 | XMS_ITS | Encounter Summary ---
Author Organization [employer] ([place], [place], [place], [place]) Address [address] [place] [address] Care Team Providers Care Shooting Gallery Operator Name Role Phone Unavailable Primary Care Provider Unavailabl e Encounter Details Date Type Department Care Team (Late st Contact Info) Description 09/30/2018 Transcribed Document [facility] [place] [facility] [place] [address] ProviderLeyda MD [address] [place] [id number] Social History Tobacco Use Types Packs/Day Years Used Date Smoking Tobacco: Never Assessed Comments Unknown Sex and Gender Information Value Date Recorded Sex Assigned at Not on file Legal Sex Female 6:21 PM CDT Gender Identity Not on file Sexual Orientation Not on file documented as of this encounter Miscellaneous Notes * [employer] Conversion Note - Historical ProviderMD - 09/30/2018 2:12 PM CDT Nursing Discharge Summary Entered On: 09/30/2018 14:13 EDT Performed On: 09/30/2018 14:12 EDT by Kelly Martines RN Discharge Documentation Discharge Date/Time : 09/30/2018 [...] Kelly Martines RN - 09/30/2018 14:12 EDT documented in this encounter Plan of Treatment Not on file documented as of this encounter Visit Diagnoses Not on filedocumented in this encounter
--- OUTSIDE RECORDS SUMMARY | 2024-09-21 12:55 | XMS_ITS | Encounter Summary ---
Author Organization [employer] ([place], [place], [place], [place]) Address [address] [place] [address] Care Team Providers Care Corporate Specialist Name Role Phone Unavailable Primary Care Provider Unavailabl e Encounter Details Date Type Department Care Team (Late st Contact Info) Description 05/25/2018 Transcribed Document [facility] Family Medicine [address] [place] [address] ProviderLeyda MD [address] [place] [id number] Social History Tobacco Use Types Packs/Day Years Used Date Smoking Tobacco: Never Assessed Comments Unknown Sex and Gender Information Value Date Recorded Sex Assigned at Not on file Legal Sex Female 6:21 PM CDT Gender Identity Not on file Sexual Orientation Not on file documented as of this encounter Miscellaneous Notes * Cerner Conversion Note - Leyda Clark MD - 05/25/2018 3:50 PM CDT Nursing Discharge [...] Nely Vitale Rn - 05/25/2018 15:50 EDT Electronically signed by Ernesto Betancourt Conversion Embossing Calender Operator Cerner at 06/22/2022 9:22 AM CDT documented in this encounter Plan of Treatment Not on file documented as of this encounter Visit Diagnoses Not on filedocumented in this encounter
--- OUTSIDE RECORDS SUMMARY | 2024-09-21 12:55 | XMS_ITS | Data Portability ---
Author Organization ADDIE Jorge patten, CKS CIRCLE CLOSED Address [address] [place] [address] Care Team Providers Care Tester [employer] Name Role Phone GONZALES AMADOR Primary Care Provider PARVEZ SANTILLAN Public Safety Dispatcher MISBAH SLATER Candy Decorator Assessment Encounter Date Assessment Date Assessment LastModified by Organization Details LastModified Time 07/18/2023 07/18/2023 Interval dysphagia followed by [facility], repeating scope with [facility] in August 2023. [email or web address] Not available 07/18/2023 [...] per most recent echocardiogram last year at [facility] to the left trickle ejection fraction of [...] per most recent echocardiogram last year at [facility] to the left ventricular ejection fraction of [...] Lab sjogren antibody panel, serum 2023 024 [email or web address] [facility], [address] [place] [address], [phone], 07/25/2023 12:17:02 glycohemo globin, total, blood 2023 024 [email or web address] [facility], [address] [place] [address], [phone], 07/25/2023 12:17:01 TSH, serum or plasma 2023 024 [email or web address] [facility], [address] [place] [address], [phone], 07/25/2023 12:17:01 BMP, serum or plasma 2023 024 [email or web address] [facility], [address] [place] [address], [id number], 07/25/2023 12:17:01 CBC w/ auto diff 2023 024 [email or web address] [facility], [address] [place] [address], [phone], 07/25/2023 12:17:02 Referral None recorded. Procedures None recorded. Surgeries None recorded. Imaging CT, chest, w/o contrast 2024 025 [email or web address] 8 [facility], [address] [place] [address], [phone], 05/01/2024 09:48:02 CT, chest, w/o contrast 2023 024 [facility], [address] [place] [address], [phone], 04/20/2024 13:54:19 Medication Orders lisinopri l 2.5 mg tablet 2023 025 [facility] [id number], [address] [place] [address], [id number], 04/20/2024 15:17:26 pilocarpi ne 5 mg tablet 2023 024 [id number], [address], [place], [id number], 12/05/2023 15:21:15 Patient TargetsNo targets recorded. Patient Instructions Encounter Date Encounter Id Patient Instructions Last Modified By Organization Details Last Modified Time 12/05/2023 [id number] body mass index: care instructions Not available [...] w/o contr ast [place] [facility] [address] [facility] [place] [place] [address] Patien t Name: CHARISSA APONTE Patielvis t [...] Marvin Farrell MD on 1:49 PM pollo [facility] [address], [address], 04/20/2024 13:56:26 Result Notes Documentation Provider Name and Address Organization Details Recorded Time Ct, Chest, W/o Contrast : [facility] [address] [place] [address] Patient Name: MELINDA APONTE Patient : 1975 [...] By: Marvin Farrell MD A BRUNER MD [address] [place] [address], [phone], [facility] 04/20/2024 13:56:26 Problems No Known Problems Procedures Surgical History Date Name Laterality Status Provider Name and Address Organization Details Recorded Time 09/16/19 24 COMBINED RIGHT AND LEFT HEART CATHETERIZATION (SURG) completed [facility] 09/19/2023 08:03:09 09/01/19 24 EKG completed MISBAH SLATER MD [address] [place], [address], [place] [facility] 09/01/2023 12:24:55 03/11/19 24 Airway Resistance completed Gisel Ayah [place] [facility] 03/11/2023 14:51:48 03/11/19 24 Diffusion Capacity completed Gisel Ayah [place] [facility] 03/11/2023 14:51:47 03/11/19 24 Lung Volumes, Plethysmography [place] Gisel Ayah [place] [facility] 03/11/2023 14:51:56 03/11/19 24 Spirometry [place] Gisel Ayah [place] [facility] 03/11/2023 14:51:45 03/11/19 24 Pulmonary Function Testing completed CHAYA REDMAN MD [address] [place], [address], [place] [facility] 03/11/2023 15:04:06 06/05/19 23 Stress Test - Nuclear Lexiscan completed MISBAH SLATER MD [address] [place], [address], [place] [facility] 06/04/2022 16:55:23 05/21/19 23 EKG completed MISBAH SLATER MD [address] [place], [address], [place] [facility] 05/21/2022 06:25:05 05/21/19 23 Echocardiogram completed MISBAH SLATER MD [address] [place], [address], [place] [facility] 05/20/2022 14:45:47 12/24/19 22 Airway Resistance completed Gabrielaroger Avendaño [place] [facility] 12/23/2021 09:23:10 12/24/19 22 Diffusion Capacity completed Gabriela Avendaño [place] [facility] 12/23/2021 09:23:09 12/24/19 22 Lung Volumes, Plethysmography completed Gabriela Avendaño [place] [facility] 12/23/2021 09:23:15 12/24/19 22 Spirometry completed Gabriela Avendaño [facility] 12/23/2021 09:23:13 05/22/19 22 Airway Resistance completed [facility] 05/21/2021 08:59:09 05/22/19 22 Diffusion Capacity completed [facility] 05/21/2021 08:59:05 05/22/19 22 Lung Volumes, Plethysmography completed [facility] 05/21/2021 08:59:06 05/22/19 22 Spirometry with Bronchodilator completed [facility] 05/21/2021 08:59:13 05/08/19 Echocardiogram completed YIN ECKERT MD [address] [place], [address] 05/08/2021 09:50:04 05/08/19 22 EKG completed FLORES PLASCENCIA PA-C [address] [place], [address] 05/07/2021 14:26:41 section completed [facility] 05/21/2021 08:51:52 Hysterectomy/bladde r repair completed [facility] 05/21/2021 08:51:57 cholecystectomy completed [facility] 05/21/2021 08:52:07 Jim fundoplication completed [facility] 05/21/2021 08:52:23 Breast augmentation w/implt completed [facility] 05/21/2021 08:52:35 procedure on knee completed Leda [facility] 04/16/2022 10:10:21 endoscopy completed Ledaremigio Aponte [facility] 04/16/2022 10:10:41 Imaging Results None recorded. Procedure Notes None recorded. Medical Equipment None Reported. Allergies Allergen ID Allergen Name Allergen Category Reaction Reaction Severity Criticality Documentation Date Start Date Code Code System Note Provider Name and Address Organization Details Recorded Time 474011 Lamictal medicatio n Not available Not available Not available 04/30/2021 2 RxNorm Maxine dyer [facility] 2 10:06:03 461451 lithium Not available Not available Not available Not available 04/30/2021 6448 RxNorm Maxine [facility]ie dyer [facility] 2 10:06:11 069774 Levaquin medicatio n Not available Not available Not available 12/05/2023 54922 2 RxNorm Linnette Kam [facility] 4 15:20:22 Medications Name Sig [...] Not Available Not Available Not Avai lable lisinopril 2.5 mg tablet Take 1 tablet every day by oral route. 04/20 completed Not Available Not Available Not Available amoxicillin 875 mg-potassium clavulanate 125 mg tablet [...] blood by Pulse oximetry Heart rate Systolic And Diastolic Provider Name and Address Organization Details Last Updated DateTime 4 154.94 cm 34.6 kg/m2 94440.4 g 98 % 98 % 86 /min 122/78 mm[Hg] Gisel Poon [facility] 4 14:46:39 Date Recorded Body height Body mass index (BMI) Body weight Oxygen saturation Oxygen saturation in Arterial blood by Pulse oximetry Heart rate Systolic And Diastolic Provider Name and Address Organization Details Last Updated DateTime 5 154.94 cm 33.1 kg/m2 38115.6 6 g 98 % 98 % 85 /min 122/68 mm[Hg] Rosita Snowden [facility] 5 15:19:39 Date Recorded Body height Body mass index (BMI) Body weight Respiratory rate Heart rate Oxygen saturation Oxygen saturation in Arterial blood by Pulse oximetry Systolic And Diastolic Provider Name and Address Organization Details Last Updated DateTime 4 154.94 cm 34 kg/m2 81200.6 3 g 16 /min 88 /min 100 % 100 % 122/80 mm[Hg] Leda Aponte [facility] 4 16:03:18 Date Recorded Body height Body mass index (BMI) Body weight Respiratory rate Oxygen saturation Oxygen saturation in Arterial blood by Pulse oximetry Heart rate Systolic And Diastolic Provider Name and Address Organization Details Last Updated DateTime 4 154.94 cm 36 kg/m2 16979.6 5 g 16 /min 100 % 100 % 94 /min 132/86 mm[Hg] Lisa Lund [facility] 4 12:15:55 Date Recorded Body height Body mass index (BMI) Body weight Oxygen saturation Oxygen saturation in Arterial blood by Pulse oximetry Heart rate Systolic And Diastolic Provider Name and Address Organization Details Last Updated DateTime 4 154.94 cm 35 kg/m2 76166.0 3 g 92 % 92 % 90 /min 124/82 mm[Hg] Linnette Kam [facility] 4 15:30:49 Social History Question Answer Notes LastModified by Organizat ion Details LastModified Time Tobacco Smoking Status Never [facility]oker [facility] 04/30/2021 10:08:44 What Was The Date Of Your Most Recent Tobacco Screening? 04/13/2024 [email or web address] Information not available 04/20/2024 How Many Children Do You Have? 1 [email or web address] Information not available 05/07/2021 What Is Your Relationship Status? [email or web address] Information not available 05/07/2021 Has Tobacco Cessation Counseling Been Provided? No Information not available 04/30/2021 Have You Recently Traveled Abroad? No [email or web address] Information not available 05/07/2021 Sex: Female Functional [...] available 04/07 15:06:09 Paternal Grandfather Heart disease [email or web address] Not available 05/21 08:53:52 Mother Heart disease [email or web address] Not available 05/21 08:54:13 Maternal Aunt Family history of malignant neoplasm [email or web address] Not available 04/07 15:06:09 Father Heart disease [email or web address] Not available 04/07 15:06:09 Medical History Condition Response Atrial Fibrillation N Blood Transfusion Y Emphysema N COPD N Pneumonia Y Sinusitis Y Arthritis Y Acid Reflux (GERD) Y Cancer N Stroke N Hospitalizations Y Black Lung N Ulcers N Pulmonary Fibrosis N Bleeding Disorder N Tuberculosis N AIDS/HIV N Asthma N Thyroid Disorder N GERD/Reflux Y Hepatitis N Cirrhosis N Neuropathy Y Pulmonary Embolism N Sarcoidosis N Pulmonary Hypertension N Deep Vein Thrombosis N Alpha 1 Antitrypsin Deficiency N High Cholesterol N Allergies/Hayfever N Chronic Obstructive Pulmonary Disease N Alzheimer's N Anemia Y Heart Attack (ND) N Diabetes N Seizures/Epilepsy N Congestive Heart Failure (CHF) Y Sleep Apnea N Aneurysm N Heart Disease Y Hypertension N Osteoporosis N Gynecological HistoryNo gynecological history recorded. Obstetrics History GPAL:G 0 P 0 0 0 0 Immunizations Vaccine Type Date Status Note Provider Nam e and Address Organization Details Recorded Time COVID-19 vaccine, vector-nr, rS-Ad26, PF, 0.5 mL 05/15/2020 completed Mone Hernandez [facility] 05/21/2021 08:52:59 COVID-19, mRNA, LNP-S, PF, 100 mcg/0.5mL dose or 50 mcg/0.25mL dose 01/10/2021 completed Mone Hernandez [facility] 05/21/2021 08:53:15 Past Encounters Encounter ID Performer Location Encounter Start Date Encounter Closed Date Diagnosis/Indication Diagnosis SNOMED-CT Code Diagnosis ICD10 Code Diagnosis Note [id number] PARVEZ DELIA SANTILLAN MD [facility] [address] [place] [address] 04/30/2021 09:56:45 04/30/2021 12:14:58 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 Malaise and fatigue 2715 18572 R53.81 R53.83 In terms of chronic malaise and fatigue, I would suggest to be screened for obstructiv e sleep apnea. She will follow this with her primary care physician. [id number] FLORES PLASCENCIA PA-C CARDIOLOG Y EAST [address] [place] [address] 05/07/2021 13:51:00 05/11/2021 09:16:05 Left bundle branch block 00131070 I44.7 Chronic with reported negative cardiac work-up Limited [facility] sclerosis 948448589 M34.9 Patient will get a baseline echo due to potential associatio n of pulmonary arterial hypertensi on with systemic scleroderm a. She has a schedule appointmen t for baseline pulmonary evaluation as well. [id number] YIN ECKERT MD ECHO VASCULAR LAB [address] [place] [address] 05/07/2021 16:08:52 05/11/2021 07:14:16 Pulmonary hypertension 96703618 I27.20 [id number] MISBAH GOOD MD PULMONARY [address], [address] [place] [address] 05/21/2021 08:32:41 05/21/2021 10:00:38 Systemic sclerosis 32075807 M34.9 Newly diagnosed with scleroderm a. She [...] pulmonary function testing. Gastroesop hageal reflux disease 278871270 K21.00 [id number] PARVEZ SANTILLAN MD [facility] [address] [place] [address] 06/18/2021 15:47:05 06/18/2021 16:59:14 Limited systemic sclerosis 282078156 M34.9 46-year-ol d female with clinical evidence [...] I will get GI consultati on from [facility]. In the meantime she will [...] years. Gastro-eso phageal reflux disease with esophagitis 975005350 K21.00 Chronic secondary to limited scleroderm a. Currently on Protonix. Discussed concerns about potential Silveira's esophagus. She has requested a consultati on from a tertiary care center. We will try to get [facility] gastroente rology to see her. [id number] MISBAH GOOD MD PULMONARY [address], [address] [place] [address] 12/23/2021 09:04:58 12/23/2021 10:36:04 Systemic sclerosis 11449234 M34.9 Newly diagnosed with scleroderm a. She [...] testing 1 year. Gastroesop hageal reflux disease 027485906 K21.00 [id number] PARVEZ DELIA SANTILLAN MD RHE[facility]AT[facility] OGY [address] [place] [address] 04/16/2022 09:57:15 04/16/2022 13:10:14 Limited systemic sclerosis 832259266 M34.9 47-year-ol d female with clinical evidence [...] is seen by tanner dickens at the [facility]. She has had evaluation at the [facility] in the past. Currently on [...] planned. Gastro-eso phageal reflux disease with esophagitis 601833048 K21.00 Chronic gastroesop hageal reflux disease secondary to limited scleroderm a. Currently on Protonix in combinatio n with famotidine . Has had evaluation at the [facility] gastroente rology and most recently at [facility]. So far the work-up is negative for Silveira's esophagus. However the current medication s are not helping her symptoms. We talked about usual care including keeping her head elevated to more than 30 degrees at bedtime. Also suggested to avoid greasy and spicy food. Discussed Dexilant in place of Protonix which she will follow-up with her gastroente rology at [facility].Michael shepard is taking Advil and I suggested her to avoid all NSAIDs. I wrote a prescripti on for tramadol to help with her pains. Chronic pain syndrome 37 9126385 G89.4 Chronic pain syndrome diagnosis fibromyalg ia at the [facility]. Suggested Elavil. I am a bit concerned about the use of anticholin ergic medication especially with her gastropare sis and reflux disease. Nonpharmac ologic modalities including relaxation exercises neelam chi and yoga reviewed. She can maintain tramadol for the pain management . We also discussed the role of Cymbalta. [id number] MISBAH SLATER MD ECHO VASCULAR LAB [address] [place] [address] 05/20/2022 13:12:07 05/21/2022 04:47:25 Left bundle branch block 10983647 I44.7 [id number] MISBAH SLATER MD CARDIOLOG Y EAST [address] [place] [address] 05/20/2022 13:13:10 05/20/2022 14:51:02 Obesity 215186997 E66.9 patient's BMI today was = 33.3; recommend weight loss to achieve a BMI of <=25. Left bundl e branch block 85894532 I44.7 Patient has h/o chronic LBBB.EKG today - normal sinus rhythm, rate=86, normal axis, LBBB, QTc= 433 ms. Chest pain 73710600 R07. 9 Based on history and physical exam, the patient's chest pain is of unknown etiology. Patient with family history of CAD. Echocardio gram today revealed LVEF=50-55 % and no significan t valvular abnormalit ies. Recommenda tion:Nafisa can nuclear stress testing is recommende d in the near future to evaluate this issue. Limited sy stemic sclerosis 286986411 M34.[address] Delia Santillan ( Rheumatolo gy) and at the [facility] for this issue. A yearly echocardio gram to assess RV size, RV systolic function, and to estimate RVSP is recommende d. [id number] MISBAH SLATER MD [facility] [address] [place] [address] 06/04/2022 12:22:45 06/07/2022 08:32:25 [id number] MISBAH SLATER MD CARDIOLOG Y SB [address] [place] [address] 06/09/2022 14:57:30 06/10/2022 04:14:19 Obesity 567566916 E66.9 patient's BMI today was = 33.7; recommend weight loss for beneficial effects on health. Chest pain 13252073 R07. 9 Based on history and physical [...] this time. Left bundl e branch block 22987168 I44.7 Patient has h/o chronic LBBB. Palpitations 57809963 R0 0.2 One recent episode of palpitatio [...] likely be ordered. Limited sy stemic sclerosis 359742403 M34.[address] Delia Santillan ( Rheumatolo gy) and at the [facility] for this issue. Recommenda tion:An Echocardio gram q 1-2 years to assess RV size, RV systolic function, and to estimate RVSP is recommenddevyn d. [id number] PARVEZ DELIA SANTILLAN MD RHEUMATOL OGY SB [address] [place] [address] 12/09/2022 15:54:25 12/11/2022 04:24:11 Limited systemic sclerosis 012984640 M34.9 47-year-ol d female with clinical evidence [...] motility disorder. Has had evaluation at the [facility] and later at [facility] which confirmed ineffectiv e esophageal motility. Now scheduled to follow-up with gastroente chrissie at [facility] . In the meantime she will maintain [...] years. Gastro-eso phageal reflux disease with esophagitis 662754656 K21.00 Chronic gastroesop hageal reflux disease secondary to limited scleroderm a. Currently on Protonix in combinatio n with famotidine . Has had evaluation at the [facility] gastroente rology and most recently at [facility]. Negative work-up for Silveira's esophagus. 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 She is now scheduled to see motility specialist in [facility]. We talked about usual care including keeping her head elevated to more than 30 degrees at bedtime. Also suggested to avoid greasy and spicy food. She will maintain Protonix twice a day and she will follow-up with her gastroente rology at [facility]. I suggested her to avoid all NSAIDs. She can use tylenol extra strength. Chronic pain syndrome 37 6837895 G89.4 Chronic pain syndrome diagnosis fibromyalg ia at the [facility]. Suggested Elavil. I am a [...] be adjusted based on her tolerance benefit. [id number] CHAYA CARCAMO-ELISEO SCHMITZ MD PULMONARY [address], [address] [place] [address] 03/11/2023 14:40:15 03/11/2023 16:25:00 Localized scleroderma 219390781 L94.0 Scleroderm a without any pulmonary manifestat [...] a repeat CT scan of the chest [id number] PARVEZ SANTILLAN MD RHEUMATOL OGY SB [address] [place] [address] 07/18/2023 15:55:52 07/20/2023 04:06:21 Limited systemic sclerosis 895467525 M34.9 48-year-ol d female with clinical evidence [...] disorder, gastropare sis. Currently being evaluated at [facility] tertiary care center. She has had evaluation at [facility] and also at [facility] . She was not very satisfied with [facility] workup or evaluation s. For now, she [...] cardiology evaluation . Recent pulmonary evaluation at [facility] reviewed, DLCO as of 03/11/2023 within normal limits. Follow up in 6 months. Gastro-eso phageal reflux disease with esophagitis 498162663 K21.00 Chronic gastroesop hageal reflux disease secondary to limited scleroderm a. She is now on Dexilant 60 mg once a day. She has failed the Protonix. Has had evaluation s at the [facility], [facility] and [facility] . Further history is positive for gastropare sis. Negative work-up for Silveira's esophagus. 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 Scheduled for repeat upper scope with [facility] in August 2023. I suggested her to avoid all NSAIDs. She can use tylenol extra strength. Chronic pain syndrome 37 3303319 G89.4 Chronic pain syndrome diagnosis fibromyalg ia at the [facility]. She is now on amitriptyl ine 50 mg at bedtime which seems to be helping her symptoms quite well. Nonpharmac ologic modalities including relaxation exercises neelam chi and yoga reviewed. Try to reduce stress. We will continue to watch her clinically . Certainly the dose of the amitriptyl ine can be adjusted based on her tolerance benefit. Xerostomia 56322760 R68. 2 She has xerostomia likely multifacto rial further contribute d by amitriptyl ine suggested symptomati c management with pilocarpin e. I also obtained the Sjogren's profile. She will initiate pilocarpin e 5 mg every 8 hours Abnormal weight gain 161 797670 R63.5 He has gained some weight in the last few months.Sug gested to obtain routine metabolic panel to look at the reversible causes. She will maintain her strict dietary program. [id number] MISBAH SLATER MD CARDIOLOG Y [address] [place] [address] 09/01/2023 12:05:38 09/01/2023 13:12:53 Left bundle branch block 91521001 I44.7 Patient has h/o chronic LBBB. EKG (09/01/23) - normal sinus rhythm, rate= 94, normal axis, IVCD-likel y left bundle branch block, QTc= 445 ms, no significan t ST abnormalit ies. Cardiomyopathy 33879912 I42.9 [facility] unchanged. She follows with [facility]cam[facility] and is neck scheduled [...] preprocedu re labs: CMP, CBC Chest pain 82566818 R07. 9 Since last visit, patient reports [...] catheteriz ation2) preprocedu re labs: CMP, CBC [id number] MISBAH SLATER [facility] [address] [facility] [place] [address] 12/05/2023 15:03:04 12/06/2023 10:59:36 Obesity 573650204 E66.9 patient's BMI today was = 35.0; recommend weight loss for beneficial effects on health. Left bundl e branch block 25513384 I44.7 Patient has h/o chronic LBBB. EKG (09/01/23) - normal sinus rhythm, rate= 94, normal axis, IVCD-likel y left bundle branch block, QTc= 445 ms, no significan t ST abnormalit ies. Cardiomyopathy 90164234 I42.9 [facility]ocard[facility] [...] ies, no scarring or fibrosis. Chest pain 41831441 R07. 9 Since last visit, patient reports [...] signficant ly improved on Colchicine . Palpitations 29673766 R0 0.2 She reports a recent increase in palpitatio ns, dizziness/ lightheade dness, and dyspnea. RECOMMENDA TION: 5 day Holter monitoring -Consider low dose beta reyes after monitoring [id number] CHAYA CARCAMO-ELISEO SCHMITZ MD PULMONARY [address] [place] [address] 04/20/2024 15:05:16 04/20/2024 16:27:24 Localized scleroderma 732408856 L94.0 Scleroderm a without any parenchyma l [...] PLAN Melinda Aponte 04/19/2024 1 [place] [id number] Melinda Aponte [id number] Melinda Aponte 08/20/2024 1 [place] [id number] Melinda Aponte [id number] Melinda Aponte 03/11/2023 1 [place] [id number] Devonte Aponte [id number] 68 Melinda Aponte Notes Date Note Type [...] tests are entirely unremarkable CHAYA BRUNER MD [facility] [place], [phone], [facility] 03/11/2023 15:12:45 07/18/2023 text/html 48-year-old seen today as a follow-up for limited scleroderma. 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 Significant chronic gastroesophageal reflux disease and gastroparesis. Has had evaluation with [facility] gastro[facility]ology and later saw gastroenterology at [facility]. She also had evaluation with rheumatology at [facility].She is on Dexilant 60 mg daily off the Protonix. She is also on amitriptyline 50 mg at bedtime which seems to have helped the fibromyalgia pains. Had a motility study at [facility] dated 07/30/2022 which confirmed ineffective esophageal motility consistent with scleroderma. She does not have any history of interstitial lung disease or pulmonary arterial hypertension. She is on maintenance hydroxychloroquine 200 mg once a day. Interval dysphagia followed by [facility], was not very satisfied with [facility] and is not scheduled to follow-up with [facility] in August 2023. PARVEZ SANTILLAN MD [address] [place] [address], [phone], [facility] 07/19/2023 08:08:48 09/01/2023 text/html Ms. pAonte is a alcides saxena, 48 y.o. patient [...] per most recent echocardiogram last year at [facility] to the left trickle ejection fraction of [...] a follow-up visit today. MISBAH SLATER MD [address] [place] [address], [phone], [facility] 12/02/2023 09:28:38 12/05/2023 text/html Ms. Aponte [...] per most recent echocardiogram last year at [facility] to the left ventricular ejection fraction of 35% with some regional wall motion abnormalities.Cardiac MRI (11/11/23): LVEF=40.1%, no fibrosis or scarring. Patient reports occasional palpitations and dizziness. Chest pain & abdominal pain prompted an ER visit at [facility]. Patient was started on colchicine and this has significantly improved the chest pain. Patient returns to the clinic today for a scheduled follow-up visit. MISBAH SLATER MD [address] [place] [address], [phone], [facility] 12/05/2023 18:45:00 04/20/2024 text/html Patient comes [...] Of note, her GI MD and second radiology services manager is at [facility] CHAYA BRUNER MD [facility] [place], [phone], [facility] 04/20/2024 15:43:31 OBGyn Episode No OBEpisode recorded.
--- OUTSIDE RECORDS SUMMARY | 2024-09-21 12:55 | XMS_ITS | Encounter Summary ---
Author Organization [employer] ([place], [place], [place], [place]) Address [address] [place] [address] Care Team Providers Care Lead Refinery Supervisor Name Role Phone Unavailable Primary Care Provider Unavailabl e Encounter Details Date Type Department Care Team (Late st Contact Info) Description 03/26/2021 Transcribed Document [facility] [address] [place] [address] ProviderLeyda MD [address], [place] [id number] Social History Tobacco Use Types Packs/Day Years [...] Date Tyrone rded Speak language other than Danish at home Not on file 03/25/2023 Want [...] - Historical ProviderMD - 03/26/2021 11:01 AM RESEARCH PHLEBOTOMIST [facility] Main OR IntraOp Summary Primary Physician: MARY TOMAS MD-SUR Finalized Date/Time: 03/27/21 12:48:54 Pt. Name: MELINDA APONTE /Sex: 1975 Female Med Rec #: [id number] Physician: MARY TOMAS MD-SUR Financial #: [id number] Pt. Type: O Room/Bed: Admit/Disch: 03/26/21 08:37:00 - 03/26/21 14:25:00 Institution: [facility] IntraOp Case Attendance Entry 1 Entry 2 Entry 3 Case Attendee MARY TOMAS MD-SUR Chiavetta, Michelle BOWEN, JON B, MD-ANS , Non Emp ENGINE ASSEMBLY SUPERVISOR Role Performed Surgeon/Proceduralist, ENGINE ASSEMBLY SUPERVISOR/Nurse Pad Machine Operator Anesthesiologist of First Record Time In 03/26/21 10:33:00 03/26/21 10:33:00 03/26/21 10:33:00 Time Out 03/26/21 11:48:00 03/26/21 11:48:00 03/26/21 11:48:00 Procedure Cholecystectomy Cholecystectomy Cholecystectomy Laparoscopic Laparoscopic Laparoscopic Other Attendee Superficial Wound Closed By: Last Modified By: Faustino Kline, Faustino Jameson, Faustino Jameson, KOLE 03/26/21 11:48:56 03/26/21 11:48:56 03/26/21 11:48:56 Entry 4 Entry 5 Entry 6 Case Attendee Abelardo Mora ST Spencer, Amber, Rn Pantano, Scott, RN Role Performed Pooling Operator, First Fur Repairer, First Fur Repairer, Second Time In 03/26/21 10:33:00 03/26/21 10:33:00 03/26/21 10:33:00 Time Out 03/26/21 11:48:00 03/26/21 11:48:00 03/26/21 11:48:00 Procedure Cholecystectomy Cholecystectomy Cholecystectomy Laparoscopic Laparoscopic Laparoscopic Other Attendee Superficial Wound Closed By: Last Modified By: Faustino Kline, Faustino Jameson, Faustino Jameson, KOLE 03/26/21 11:48:56 03/26/21 11:48:56 03/26/21 11:48:56 Entry 7 Entry 8 Case Attendee MAGED HERNANDEZ, SCRUB TAHIRA CELIS SSI TECH Role Performed Scrub, First Chief Chemist, Ancillary Time In 03/26/21 10:33:00 03/26/21 10:33:00 Time Out 03/26/21 11:48:00 03/26/21 11:48:00 Procedure Cholecystectomy Cholecystectomy Laparoscopic Laparoscopic Other Attendee Superficial Wound Closed By: Last Modified By: Faustino Kline, RN Faustino Kline RN 03/26/21 11:48:56 03/26/21 11:48:56 [facility] IntraOp Case Attendance Audit 03/26/21 11:48:56 Finisher Machine: PANTANOS Modifier: PANTANOS 1 <+> Time Out 1 <*> Procedure [...] 8 <*> Procedure Cholecystectomy Laparoscopic 03/26/21 10:45:18 Finisher Machine: PANTANOS Modifier: PANTANOS <+> 1 Procedure 2 [...] Time In 8 <*> Procedure Cholecystectomy Laparoscopic [facility] IntraOp Case Times Entry 1 Patient In Room Time 03/26/21 10:33:00 Out Room Time 03/26/21 11:48:00 Anesthesia Start Time 03/26/21 10:33:00 Stop Time 03/26/21 11:48:00 Surgery / Procedure Times Start Time 03/26/21 11:01:00 Stop Time 03/26/21 11:45:00 Last Modified By: Faustino Kline RN 03/26/21 11:48:40 [facility] IntraOp Case Times Audit 03/26/21 11:48:40 Finisher Machine: PANTANOS Modifier: PANTANOS <+> 1 Out Room Time <+> 1 Stop Time 03/26/21 11:48:07 Finisher Machine: PANTANOS Modifier: PANTANOS <+> 1 Stop Time 03/26/21 11:01:12 Finisher Machine: PANTANOS Modifier: PANTANOS <+> 1 Start Time [facility] IntraOp Cautery Entry 1 ESU Identification Cautery Type Monopolar ESU ID Number [id number] ID Type Hospital Number Cautery Settings Cut Setting 1 Coag Setting 30 ESU Grounding Pad Ground Pad Type Reusable electrode pad Grounding Pad Site Posterior Grounding Pad Estrella Hernandez Rn Applied By Grounding Pad Site Warm, dry and intact Skin Condition Before Cautery Grounding Pad Site Warm, dry and intact Skin Condition After Cautery Last Modified By: Faustino Kline RN 03/26/21 10:43:58 [facility] IntraOp Communication Entry 1 Communication To Family/Significant other Comment [facility] Communication By Estrella Hernandez Rn Date and Time 03/26/21 11:05:00 Last Modified By: Faustino Kline RN 03/26/21 11:05:36 [facility] IntraOp Communication Audit 03/26/21 11:05:36 Finisher Machine: PANTANOS Modifier: PANTANOS <+> 1 Date and Time <+> 1 Comment [facility] IntraOp Counts Verification Entry 1 Procedure Cholecystectomy Laparoscopic Count Info Count Type Sponge, Sharps, Instrument, Miscellaneous Counts Verification Baseline/pre-procedure Sequence Count Results Correct, surgeon notified Counts Performed By Count Performed By MAGED HERNANDEZ SCRUB (Scrub) TECH Count Performed By Faustino Kline RN (RN) Last Modified By: Faustino Kline RN 03/26/21 10:43:00 [facility] IntraOp Counts Final Entry 1 Procedure Cholecystectomy Laparoscopic Final Count Info Count Type Sponge, Sharps, Miscellaneous Counts Verification Skin Closure/end of Sequence procedure Count Results Correct, surgeon notified Counts Performed By Count Performed By MAGED HERNANDEZ SCRUB (Scrub) TECH Count Performed By Estrella Hernandez Rn (RN) Last Modified By: Faustino Kline RN 03/26/21 10:43:15 [facility] IntraOp Cultures and Spec Summary Entry 1 Cultrures and Specimens Specimen Ordered: Yes Test(s) Routine/Path-Lab Requested/Final Disposition Last Modified By: Faustino Kline RN 03/26/21 10:44:02 [facility] IntraOp Departure from OR Entry 1 Integumentary Assessment Integumentary WDL with patient Assessment WDL specific variances Patient's Normal Surgical incisions = Integumentary Abdomen Variance(s) Transfer/Handoff Transfer to PACU Phase I Handoff Method Phone call Post-op Transport Stretcher/Gurney Via Patient Transport Abelardo Mora ST, Accompanied by Nitza Cameron Non Emp ENGINE ASSEMBLY SUPERVISOR Last Modified By: Faustino Kline RN 03/26/21 10:46:25 [facility] IntraOp Dressing and Packing Entry 1 Type Dressing Location Abdomen Wound Dressing Item Skin Closure Glue Applied By Abelardo Mora ST Other Comments Dermabond Last Modified By: Faustino Kline RN 03/26/21 10:44:58 [facility] IntraOp Fire Risk Assessment Entry 1 Fire [...] Modified By: Faustino Kline RN 03/26/21 10:44:19 [facility] IntraOp General Case Child Day Care Teacher 1 Case Information OR OR 08 [facility] Case Level 1 Room Verified Yes Wound Class 2 - Clean-Contaminated Specialty General Anesthesia Type General ASA Class 2 Diagnosis Preop Diagnosis CHOLECYSTITIS Postop Same As Preop Yes Postop Diagnosis CHOLECYSTITIS Wound Class Definitions Last Modified By: Faustino Kline RN 03/26/21 10:45:09 [facility] IntraOp General Case Data Audit 03/26/21 10:45:09 Finisher Machine: TERESSA Modifier: TERESSA <+> 1 Wound Class [facility] IntraOp Intraoperative Assessment Entry 1 Handoff Method Online nursing summary Valid History / Yes Physical in Chart Preoperative Yes Checklist Reviewed/Evaluated Allergies Reviewed Yes Patient is Latex No Sensitive Level of WDL Consciousness (WDL = Alert, Oriented to Person, Place, and Time) Skin Assessment Yes Verified Present Upon IVs Arrival to OR Last Modified By: Faustino Kline RN 03/26/21 10:46:11 [facility] IntraOp Intraoperative Equipment Entry 1 Type Monitoring [...] Modified By: Faustino Kline RN 03/26/21 10:45:59 [facility] IntraOp Medication Admin Entry 1 Medication/Irrigant Marcaine 0.5% w/ epinephrine 1:200,000 30ml vial - [id number] Route of Local Administration Dose Dose 18 Unit of Measure ml Administered By MARY TOMAS MD-SUR Procedure Irrigation Last Modified By: Faustino Kline RN 03/26/21 10:45:31 [facility] IntraOp Patient Positioning Entry 1 Procedure Cholecystectomy [...] Strap, Thighs, Foot Board Positioned By Estrella Hernandez Rn, MARY TOMAS MD-SUR, Abelardo Mora, , Rakesh, Nitza , Non Emp ENGINE ASSEMBLY SUPERVISOR Position Verified Positioning Yes Verified by Anesthesia Positioning Yes Verified by Surgeon Last Modified By: Faustino Kline RN 03/26/21 10:45:16 [facility] IntraOp Sign In Entry 1 Patient, Site, [...] Modified By: Faustino Kline RN 03/26/21 10:46:19 [facility] IntraOp Sign Out Entry 1 RN Confirmation [...] Modified By: Faustino Kline RN 03/26/21 11:48:51 [facility] IntraOp Sign Out Audit 03/26/21 11:48:51 Finisher Machine: TERESSA Modifier: PANTANOS <+> 1 RN Sign Out Signature Date/Time [facility] IntraOp Skin Prep Entry 1 Procedure Cholecystectomy Laparoscopic Prescribed Yes Pre-Surgical Prep Completed Prep Area ABDOMEN Intraop Prep Prep Agents Chloraprep Prep by MARY TOMAS MD-JIMY Hair Removal Methods No hair removal performed Last Modified By: Faustino Kline RN 03/26/21 10:44:52 [facility] IntraOp Surgical Procedures Entry 1 Procedure Cholecystectomy Laparoscopic Additional (LAP CHOLECYSTECTOMY Procedure WITH POSSIBLE IOC) Description Primary Procedure Yes Primary Surgeon MARY TOMAS MD-JIMY Start 03/26/21 11:01:00 Stop 03/26/21 11:45:00 Anesthesia Type General Specialty General Wound Class 2 - Clean-Contaminated Last Modified By: Faustino Kline RN 03/26/21 11:48:31 [facility] IntraOp Surgical Procedures Audit 03/26/21 11:48:31 Finisher Machine: TERESSA Modifier: PANTANOS 1 <*> Procedure Cholecystectomy Laparoscopic 1 <+> Wound Class 03/26/21 11:48:18 Finisher Machine: TERESSA Modifier: PANTANOS <+> 1 Stop 03/26/21 11:01:21 Finisher Machine: TERESSA Modifier: TERESSA <+> 1 Start [facility] IntraOp Temp Regulation Devices Entry 1 Temp Regulation Temperature Warm blankets, Forced Regulation Device Air Warming device, Room temperature Temperature Upper body Regulation Site Temperature Chiavetta Nitza Regulation Device , Non Emp ENGINE ASSEMBLY SUPERVISOR Applied by Last Modified By: Faustino Kline RN 03/26/21 10:45:37 [facility] IntraOP Time Out Entry 1 Procedure to [...] Modified By: Faustino Kline RN 03/26/21 11:01:08 [facility] IntraOP Time Out Audit 03/26/21 11:01:08 Finisher Machine: TERESSA Modifier: TERESSA 1 <+> Time Out Pause Time 1 <*> Procedure to be Performed Cholecystectomy Laparoscopic Case Comments <None> Finalized By: HERBERT DRISCOLL Document Signatures Signed By: Faustino Kline RN 03/26/21 11:49 HERBERT DRISCOLL 03/27/21 12:48 Unfinalized History Date/Time Username Reason for Unfinalizing Freetext Reason for Unfinalizing 03/27/21 12:47 WATTSDR Correct Billing Electronically signed by Serafin [facility] Conversion Color Room Attendant Cerner at 06/22/2022 9:12 AM CDT documented in this encounter Plan of Treatment Not on file documented as of this encounter Visit Diagnoses Not on filedocumented in this encounter
--- OUTSIDE RECORDS SUMMARY | 2024-09-21 12:55 | XMS_ITS | Encounter Summary ---
Author Organization [employer] ([place], [place], [place], [place]) Address [address] [place] [address] Care Team Providers Care Social Sciences Professor Name Role Phone Unavailable Primary Care Provider Unavailabl e Encounter Details Date Type Department Care Team (Late st Contact Info) Description 09/30/2018 Transcribed Document [facility] Family Medicine [address] [place] [address] ProviderLeyda MD [address] [place] [address] Social History Tobacco Use Types Packs/Day Years Used Date Smoking Tobacco: Never Assessed Comments Unknown Sex and Gender Information Value Date Recorded Sex Assigned at Not on file Legal Sex Female 6:21 PM CDT Gender Identity Not on file Sexual Orientation Not on file documented as of this encounter Miscellaneous Notes * Hali Conversion Note - Historical ProviderMD - 09/30/2018 5:00 AM CDT Chart Check - Review Order Profile Entered On: 09/30/2018 5:11 EDT Performed On: 09/30/2018 5:00 EDT by Lawson Garces, RN Chart Check Powerplans Initiated/Discontinued as Appropriate : Yes All Active Orders Reviewed : Yes Lawson Garces RN - 09/30/2018 5:11 EDT Electronically signed by Ernesto Betancourt Conversion Straight Pin Making Machine Operator Hali at 06/22/2022 9:27 AM CDT documented in this encounter Plan of Treatment Not on file documented as of this encounter Visit Diagnoses Not on filedocumented in this encounter
--- OUTSIDE RECORDS SUMMARY | 2024-09-21 12:55 | XMS_ITS | Encounter Summary ---
Author Organization [employer] ([place], [place], [place], [place]) Address [address] [place] [address] Care Team Providers Care Web Developer Name Role Phone Unavailable Primary Care Provider Unavailabl e Encounter Details Date Type Department Care Team (Late st Contact Info) Description 09/30/2018 Transcribed Document [facility] [place] Family Medicine [address] [place] [address] ProviderLeyda MD [address] [place] [address] Social History Tobacco Use Types Packs/Day Years Used Date Smoking Tobacco: Never Assessed Comments Unknown Sex and Gender Information Value Date Recorded Sex Assigned at Not on file Legal Sex Female 6:21 PM CDT Gender Identity Not on file Sexual Orientation Not on file documented as of this encounter Miscellaneous Notes * Cerner Conversion Note - Historical ProviderMD - 09/30/2018 1:40 PM CDT Stroke/Warfarin [...]
[2024-09-21 14:04] LABS: 25-OH Vitamin D, Total 26.8 ng/mL (30-100)
[2024-09-21 14:20] LABS: Ferritin 11.2 ng/ml (11.1-264)
== END 2024-09-21 23:59 | disposition home or self-care (01) ==
LOC: LAB 12:52
PROVIDERS: PCP Internal Medicine; Visit Provider Obstetrics & Gynecology
DX: R53.83 Other fatigue (principal)
CPT/HCPCS: 36415; 82306; 82728

== ENCOUNTER 2024-10-23 12:06 | Outpatient (CLI) | payer BC, SELFPAY ==
--- OUTSIDE RECORDS SUMMARY | 2024-09-27 14:40 | XMS_ITS | Encounter Summary ---
Author Organization [facility] Address [address] [place] [address] Care Team Providers Care Legislative Advocate Name Role Phone Bill Lamar MD Primary Care Provider [phone] Reason for Referral * Imaging (Routine) - Closed Specialty Diagnoses / Procedures Referred By Wander aragon Referred To Contact Radiology Diagnoses Chronic heart failure, unspecified heart failure type (CMS/HCC) Bradycardia Procedures MR Cardiac Morphology and Function W Velocity Flow Mapping W and WO Contrast Mitul Garza MD [address] [place] [address] Phone: tel: fax: Referral ID Status Reason Start Date Expiration Date Visits Re quested Visits Authorized [id number] Closed 09/29/2024 03/31/2026 1 1 * Consultation (Routine) - Authorized Specialty Diagnoses / Procedures Referred By Contac t Referred To Contact Diagnoses Chronic heart failure, unspecified heart failure type (CMS/HCC) Mitul Garza MD [address] [place] [address] Phone: tel: fax: Referral ID Status Reason Start Date Expiration Date V isits Requested Visits Authorized [id number] Authorized 09/27/2024 03/29/2026 1 1 * Consultation (Routine) - Authorized Specialty Diagnoses / Procedures Referred By Contac t Referred To Contact Diagnoses Chronic heart failure, unspecified heart failure type (CMS/HCC) Mitul Garza MD [address] [place] [address] Phone: tel: fax: Referral ID Status Reason Start Date Expiration Date V isits Requested Visits Authorized [id number] Authorized 09/27/2024 03/29/2026 1 1 * Cardiac Stress Testing (Routine) - Closed Specialty Diagnoses / Procedures Referred By Contac t Referred To Contact Cardiology Diagnoses Bradycardia Procedures Adult Patch Monitor - 14 Day Mitul Garza MD [address] [place] [address] Phone: tel: fax: Referral ID Status Reason Start Date Expiration Date Visits Re quested Visits Authorized [id number] Closed 09/27/2024 03/29/2026 1 1 * Consultation (Routine) - Authorized Specialty Diagnoses / Procedures Referred By Contac t Referred To Contact Rheumatology Diagnoses Chronic heart failure, unspecified heart failure type (CMS/HCC) Mitul Garza MD [address] [place] [address] Phone: tel: fax: Vonnie Ramos MD [id number] [place] [address] Phone: tel: fax: Referral ID Status Reason Start Date Expiration Date Visits Requested Visits Authorized [id number] Authorized Specialty Services Required 09/27/2024 03/29/2026 1 1 Encounter Details Date Type Department Care Team ([facility] st Contact Info) Description 09/27/2024 2:40 PM EDT Office Visit [facility] [address] [facility], [address] [place] [address] Mitul Garza MD [address] [place] [address] Chronic heart failure, unspecified heart failure type (CMS/HCC) (Primary Dx); Bradycardia Social History Tobacco Use Types Packs/Day Years Used Date Smoking Tobacco: Never Smokeless Tobacco: Never Tobacco Cessation:Counseling Given: Yes Alcohol Use Standard Drinks/Week Comments Yes 2 (1 standard drink = 0.6 oz pur e alcohol) PHQ-2 Answer Date Recorded Patient Health Questionnaire-2 Score 0 09/27/2024 PHQ-9 Answer Date Recorded Patient Health Questionnaire-9 Score 0 09/27/2024 PHQ-2A Answer Date Recorded Patient Health Questionnaire-2 Score 0 06/15/2022 Comments No Sex and Gender Information Value Date Recorded Sex Assigned at Not on file Legal Sex Female 6:18 PM EDT Gender Identity Not on file Sexual Orientation Not on file documented as of this encounter Last Filed Vital Signs Vital Sign Reading Time Taken Comments Blood Pressure 121/80 09/27/2024 2:59 PM EDT Pulse 84 09/27/2024 2:59 PM EDT Temperature - - Respiratory Rate - - Oxygen Saturation 98% 09/27/2024 2:59 PM EDT Inhaled Oxygen Concentration - - Weight 81.2 kg (179 lb 0.2 oz) 09/27/2024 2:59 P M EDT Height 154.9 cm (5' 1 ) 09/27/2024 2:59 PM EDT Body Mass Index 33.82 09/27/2024 2:59 PM EDT documented in this encounter Functional Status * Over the past 2 weeks, how often have you been bothered by any of the following problems? Question Answer Date of Assessment Author Little interest or pleasure in doing things Not at all 09/27/2024 3:19 PM EDT Charmaine Alaniz CNA Feeling down, depressed, or hopeless Not at all 09/27/2024 3:19 PM EDT Charmaine Alaniz CNA Patient Health Questionnaire-2 Score 0 09/27/2024 3:19 PM EDT Chapin Alaniz CNA * Question Answer Date of Assessment Author Trouble falling or staying asleep, or sleeping too much Not at all 09/27/2024 3:19 PM Charmaine Wilson CNA Feeling tired or having little energy Not at all 09/27/2024 3:19 PM Charmaine Wilson CNA Poor appetite or overeating Not at all 09/27/2024 3: 19 PM Charmaine Wilson CNA Feeling bad about yourself - or that you are a failure or have let yourself or your family down Not at all 09/27/2024 3:19 PM EDCharmaine Torrez CNA Trouble concentrating on things, such as reading the newspaper or watching television Not at all 09/27/2024 3:19 PM Charmaine Wilson CNA Moving or speaking so slowly that other people could have noticed? Or the opposite - being so fidgety or restless that you have been moving around a lot more than usual. Not at all 09/27/2024 3:19 PM Charmaine Wilson CNA Thoughts that you would be better off or hurting yourself in some way Not at all 09/27/2024 3:19 PM Charmaine Wilson CNA Patient Health Questionnaire-9 Score 0 09/27/2024 3:19 PM Chapin Wilson CNA * If you checked off any problems on this questionnaire so far, Question Answer Date of Assessment Author How difficult have these problems made it for you to do your work, take care of things at home, or get along with other people? Not difficult at all 09/27/2024 3:19 PM Charmaine Wilson CNA documented as of this encounter Miscellaneous Notes * Patient Instructions - Mitul Garza MD - 09/27/2024 2:40 PM EDT - Will change your entresto dosing to 49-51 mg twice a day. Let us know if you feel ok with this new dose - Will schedule you with the medication uptitration clinic with Nikki Johnson to increase your meds to get the best benefit. - Will review your CT scan images with a patch finisher here and determine if you need further testing with a cardiac MRI/PET scan - Will find a patch finisher for you to follow with and provide a referral - You should get a call to follow up with a pin cleaner here at named Richard Shankar. - return to clinic in 3 months * Progress Notes - Mitul Garza MD - 09/27/2024 2:40 PM EDT Images from the original note were not included. [facility] Cardiac Sarcoidosis Outpatient Visit Date of Service: 09/27/2024 Patient Name Melinda Aponte Date of 1975 Encounter Provider: Mitul Garza MD Chief Complaint Melinda Aponte is a 49 y.o. female presenting for evaluation of possible cardiac sarcoidosis. She is here today alone. Prior Cardiac and Medical History/History of Present Illness Ms. Aponte is a 49 year old with history of longstanding Raynauds phenomenon, limited scleroderma (anticentromere antibody positive, puffy fingers, positive sicca, telangiectasias), esophageal dysmotility, GERD with dysphagia and Silveira's esophagus status post Jim fundoplication in 2019, fibromyalgia and recently diagnosed heart failure with reduced ejection fraction, most recently establishedcare with Dr. Adele Lewis on 01/09/2024 at [facility]. Ms. Aponte was started on GDMT (Entresto, low dose Coreg, Jardiance). More recently in 08/2024, she had an echo done at [facility] which noted LV systolic dysfunction with increased LV wall thickness (LVEF 35-40%). She follows at [facility] for diagnosis of scleroderma and has had an evaluation to rule out cardiac sarcoidosis in 2023. On review of records, an FDG PET from 01/2024 showed no abnormal FDG uptake to suggest active cardiac sarcoidosis. Cardiac MRI in 01/2024 showed LVEF 40%, hypokinetic septal and inferoseptal mccarthy with no LGE. She had no episodes of bradycardia on her zio monitor done in 07/2024. She was felt to not warrant apacemaker at this time by Dr. Faraz Laurent ([facility]). She states that she continues to get HRreadings in the 40's on her fit bit associated with dizziness. She was having discussion with her local excelsior picker in [place] on whether she should get a loop recorder placed. 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 With regards to GDMT up-titration, she had constipation and headaches with higher doses of entresto.She has also had restless legs with spironolactone. She recently had a CT chest done at [facility] which showed multiple tiny lung nodules. She says these nodules were not noted before. However, it appears that a second opinion read ofthe same CT done at [facility] noted that this was not significantly changed from prior exams there. Today, she reports the following heart failure symptoms: - Dyspnea: Yes, she gets short of breath walking more than a block, can go up a flight of stairs but not more - Orthopnea: No - PND: No - Bendopnea: Yes - Leg swelling: No - Chest pain: Yes, feels like tightness , every few days, random, lasts for a minute , no radiation. She gets a bad pain under her ribs, often - Lightheadedness/dizziness: Yes, daily when she stands up. She sometimes feels her heart rate falls to 40s - Syncope: Yes, once in 2021. She was at [facility] [employer] [facility] . It was inside. She had a prodromebefore passing out. - Palpitations: Yes, frequently , 3-4 times in a week, lasts a few seconds and it is associated with lightheadedness - Abdominal bloating/early satiety: Yes - Fatigue: Yes Overall, she reports being limited by cardiovascular symptoms. She has been exercising by walking afew times a week around her neighborhood but she does feel limited. She can't keep up with someone her own age.. She endorses the following exercise tolerance: 1 blocks, 1 flights of stairs until Shehas to stop due to: fatigue and shortness of breath. She reports these symptoms are worsening sincethe past 6 months to a year. She downsized on her house because she couldn't do steps anymore. She has been adherent to a low salt, low fat diet. She has been adherent to her medications. The patients other medical problems are as listed below. Problem List/Past Medical History - as above Past Surgical History Surgical History[1] Allergies Allergies as of 09/27/2024 - Reviewed 09/27/2024 Allergen Reaction Noted Lamotrigine Hives and Palpitations 08/31/2021 Levofloxacin Nausea, Other - please document in the comment field, Palpitations, and Vomiting 11/28/2023 [place] Other - please document in the comment field 10/28/2021 Medication List Current Medications[2] Social History - Tobacco: never - Alcohol: occasionally a glass of wine - Illicit drugs: no - Occupation: Works in [employer] for [employer] Family History Ms. Aponte has a daughter, Aisha, who is 25 years old. She has a history of tachycardia but has not seen a excelsior picker. Her brother doesn't often go to the doctor. She is not aware of any cardiac conditions for him. Maternal Ms. Aponte's mother was diagnosed with heart failure in her 70s. She also has a history of a stroke and kidney failure. Her grandfather passed from a heart attack. Paternal Ms. Aponte's father has a history of atrial fibrillation and bradycardia. Her uncle had a heart attack around 70 years old. She believes he had a cardiomyopathy prior to this. He has an ICD. Her aunt has a pacemaker and lupus. Ms. Aponte's grandfather passed from a heart attack in his 50s-60s. There is no additional known history of cardiomyopathy, heart failure, or sudden . Ethnicity: Review of Systems ROS - as above Physical Exam Vitals: 09/27/24 1459 BP: 121/80 Pulse: 84 SpO2: 98% Weight: 81.2 kg (179 lb 0.2 oz) Height: 1.549 m (5' 1 ) Body mass index is 33.82 kg/m??. Gen: Appears reasonably comfortable and in no acute distress, sitting comfortably HEENT: Mucus membranes moist, oropharynx clear, no scleral icterus Neck: Supple, no lymphadenopathy, no thyromegaly Respiratory: Clear to auscultation bilaterally Cardiovascular: PMI non displaced. No RV lift. Jugular venous pressure was noted at 5 cm of water with a negative hepatojugular reflex. A normal rate and regular rhythm was present with normal S1 andS2 without gallops, rubs or murmurs. Extremities were warm and well perfused and pulses were round and full (2+). Gastrointestinal: The abdomen was soft, non-tender/non-distended Musculoskeletal: Moves all extremities, strength grossly intact Extremities: No pitting edema. No significant cyanosis or clubbing Hematologic: No petechiae or purpura Skin: No obvious rashes or lesions Neurological: Grossly intact Lab Results I personally reviewed the following laboratory results: Chemistry Lab Results Component Value Date/Time NA 142 12/19/2017 1648 K 4.2 12/19/2017 1648 CL 105 12/19/20178 BUN 16 12/19/20171647 CREATININE 0.84 12/19/20171647 Lab Results Component Value Date/Time CALCIUM 9.2 12/19/20171647 Lab Results Component Value Date WBC 7.23 12/19/2017 RBC 4.11 12/19/2017 HGB 12.2 12/19/2017 HCT 38.3 12/19/2017 MCV 93.2 12/19/2017 MCH 29.7 12/19/2017 MCHC 31.9 (L) 12/19/2017 PLT 285 12/19/2017 RDW 13.0 12/19/2017 No results found for: TSH DIAGNOSTIC STUDIES - EKG (09/27/24): Normal sinus rhythm, LBBB Echocardiograms - TTE (08/06/24) - The LV is normal in size. There is moderate LV systolic dysfunction. There is increased LV wall thickness. There is moderate global hypokinesis present. The septal, inferoseptal and anteroseptal LVwalls are severely hypokinetic. Diastolic function is indeterminate. LVEF 35-40% - RV is normal in size and function - Mildly dilated LA. Normal RA - Aortic valve is mildly thickened. No , trace AI - Mild MR - Trace TR - TTE (08/29/23): Normal left ventricular cavity size and wall thickness. Moderately decreased left ventricular systolic function. The left ventricular endocardium is not well visualized which precludes accurate assessment of regional wall motion. The inferior and inferoseptal mccarthy are severely hypokinetic. The mid to distal anterior mccarthy and apex are moderately hypokinetic. Overall the LVEF is moderately reduced and estimated at 35-40%. Abnormal diastolic filling pattern for age, Grade I (Impaired relaxation). MV E/e': 26 consistent with elevated left atrial pressure. Normal right ventricular size. Normal right ventricular global systolic function. TAPSE (tricuspid annular plane systolic excursion) is 2.7 cm (normal > 1.7 cm). No significant valvular dysfunction. Trace tricuspid regurgitation noted. RVSP (PA systolic pressure from tricuspid regurgitation jet) is estimated at 35 mmHg. Right atrial pressure estimate of 8 mmHg. No prior study available for comparison. Cardiac catheterizations - R/LHC (09/16/2023) 1)No angiographic CAD 2)LVEF=50-55% with no regional wall motion abnormalities 3)No significant gradient across Aortic Valve 4)LVEDP=16-17 mmHg 5)RHC data: -RA=14 mmHg -RV=34/8 mmHg -PA=29/17 mmHg (mean=22 mmHg) -PCWP=15-17 mmHg 6)U/s-guided RFA & RFV access 7)6F Mynx closure device placed in RFA. Recommendations 1)F/u with local pin cleaner in 1-2 weeks for reassessment 2)F/u with PCP in 1-2 weeks for reassessment 3)Consider repeat echocardiogram next spring-summer (2024). 4)No additional CV tests recommended this summer-fall (2023). Other Non-Invasive Imaging - Cardiac MRI (11/13/2023): Normal LV size with mild reduction in LV systolic function. LVEDVi= 81 ml/m2 and LVEF= 40.1%. The septum is asynchronous. The septal and inferoseptal LV mccarthy are moderately hypokinetic. Normal RV size with mild reduction in RV systolic function. RVEDVi= 34 ml/m2 and RVEF= 40.3%. No atrial enlargement. No CMR evidence of myocardial scarring, infarction, or necrosis. No evidence of myocardial edema or inflammation. Resting hypoperfusion is noted in the septal LV wall. Ratio of pulmonary to systemic flow, Qp:Qs ratio = 1.04 (normal <or = 1.2, hemodynamically significant shunt > 1.5), demonstrating no evidence of hemodynamically significant shunt. Overall, this CMR demonstrates mild reduction in biventricular systolic function. No evidence of LGE or pattern characteristic of underlyingetiology. Ischemic evaluation for the resting hypoperfusion in the septal LV wall is suggested, if clinically feasible. - FDG PET (01/12/2024) 1. FDG metabolic images of the heart demonstrate no abnormal FDG-uptake to suggest active myocardial inflammation, active cardiac sarcoidosis. 2. N-13 ammonia PET/CT myocardial perfusion imaging at rest demonstrates mild heterogeneity with decreased perfusion along mid to basal segments of septal, inferoseptal and small apical region of theleft ventricle. 3. Normal left ventricular wall motion. The global LVEF equals 49 % at rest. 4. Limited whole body FDG PET/CT images demonstrate no evidence of active extracardiac inflammation. Other findings as above. - CT chest with iv contrast (06/27/24) Too numerous to count, tiny nodular densities throughout the lungs most pronounced along the peripheries. No consolidation. No masses. No pleural effusion Patulous esophagus with concentrically thickened esophageal wall without evidence for active inflammation. With clinical history, suspicious for partial manifestation of fibrosis. Second opinion interpretation done at [facility] of outside CT chest dated 06/27/2024: 1. Numerous bilateral pulmonary nodules measuring up to 3 mm, not significantly changed from prior exam. Findings are nonspecific, however in the setting of provided history of scleroderma, differential includes follicular bronchiolitis, versus chronic granulomas from prior airway infection. 2. No significant evidence of interstitial lung disease. 3. Patulous esophagus with diffuse wall thickening, likely related to provided history of scleroderma. - PFT (02/21/2024) 1. Available data suggest normal spirometry. FEV1 2.1 L, 85 % predicted. 2. Lung volume reveals normal. 3. DLCO is normal. - Holter monitor (12/21/23) Average heart rate of 89 bpm (range 72-182 bpm) and rhythm is sinus (normal), % tachycardia= 15/7% 77 PVCs with one 11 beat run of VT (Ventricular tachycardia at 12/20/23 at 12:32 pm) 732 PACs with 3 runs of SVT - longest episode lasting 7 beats No heart block was seen 8 events reported - correlated with sinus tachycardia - Holter monitor (08/03/24) - Patient had a min HR of 68 bpm, max HR of 138 bpm, and avg HR of 89 bpm. - Predominant underlying rhythm was Sinus Rhythm. - Bundle Branch Block/IVCD was present. - 2 Supraventricular Tachycardia runs occurred, the run with the fastest interval lasting 10 beats with a max rate of 138 bpm, the longest lasting 9 beats with an avg rate of 111 bpm. - Isolated SVEs were rare (<1.0%, 442), SVE Couplets were rare (<1.0%, 20), and SVE Triplets were rare (<1.0%, 3). - Isolated VEs were rare (<1.0%, 405), and no VE Couplets or VE Triplets were present. 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 Only one pathogenic variant was identified indicating she does not have the condition. [id number]: c.424G>T, p.Jlc552Hce Testing also identified a variant of uncertain significance in MYBPC3: c.2980C>T, p.[id number] Cardiomyopathy is associated with MYBPC3. 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 [employer] currently classifies the evidence in association with DCM as limited. Impression and Plan: In summary, Melinda Aponte is a 49 y.o. female presenting as a new patient for possible cardiac sarcoidosis. She was ruled out for cardiac sarcoidosis with a cardiac MRI and an FDG PET done in 01/2024. She now has multiple small lung nodules which could be related to scleroderma, but could also begranulomas. Will refer her to pulmonology for further evaluation. I will repeat a cardiac MRI for reevaluation of cardiac function and ?presence of LGE to suggest cardiac sarcoidosis. LV systolic dysfunction: Mild RV dysfunction: None Etiology: Non-ischemic cardiomyopathy ACC/AHA stage: C NYHA functional class: III As such, I have made the following recommendations: The cause of her LV dysfunction is unclear She has nodules noted on recent CT chest which she says was not present on prior CT imaging . Will obtain the images and review with patch finisher. Will proceed with a cardiac MRI. Will uptitrate her GDMT Will increase entresto to 49-51 mg BID. She says she has been taking 2 pills of the 24-26 mg twice a day and has not been feeling well with it but her BP has been fine when she feels that way. She will call us back and let us know how she is doing with the medium dose entresto. Will plan on adding eplerenone at next visit Will refer to medication uptitration clinic Will provide referrals to rheumatology and pulmonology. Evidence Based Medical Therapy for Heart Failure: - ACEi/ARB/ARNI: entresto 49-51 mg BID, Currently up-titrating - Aldosterone antagonist: Plan to initiate at future visit (eplerenone) - Beta-reyes: coreg 3.125 mg BID, Currently up-titrating - Digoxin: Not indicated - Hydralazine/Nitrates: Not indicated - Ivabradine: Not indicated - SGLT2i: jardiance 10 mg daily, Maximally tolerated dose Device Therapy for Heart Failure: - ICD/BiV-PPM/BiV-ICD: Not currently indicated - MitraClip: not indicated - Barostim: not indicated - CardioMEMs: not indicated Co-Morbidities Perspective: - Atrial fibrillation: no - CAD: no - Diabetes: no , A1C 5.2 (01/09/24) - Iron-deficiency anemia: she qualifies for iron infusions (ferritin 18, transferrin saturation 16%), will plan on speaking to her about it. - Lifestyle/weight/BMI: encouraged healthy diet and exercise - Sleep apnea: no - Substance use: no Labs: CK, NT-proBNP, CMP. Return to clinic in 3 months. I spent 55 minutes in the care of this patient including review of past medical records, updating his/her chart, interpretation of diagnostic testing and discussing diagnosis and current treatment plans. I provided counseling (i.e. importance of exercise, fluid management, medication adherence and follow up etc), as well as coordination of care as detailed above. Mitul Garza MD Advanced Heart Failure/Transplant Cardiology [facility] [1] Past Surgical History: Procedure Laterality Date BREAST BIOPSY Left 7 years ago-benign results SECTION, CLASSIC 1998 CHOLECYSTECTOMY HIATAL HERNIA REPAIR HYSTERECTOMY OH BREAST AUGMENTATION WITH IMPLANT [2] Current Outpatient Medications Medication Sig Dispense Refill acetaminophen (Tylenol) 500 MG tablet Take 2 tablets by mouth every 6 hours as needed. carvedilol (Coreg) 3.125 MG tablet Take 1 tablet by mouth 2 times a day. colchicine (Colcrys) 0.6 MG tablet empagliflozin (Jardiance) 10 MG Take 1 tablet by mouth 1 time each day. Entresto 24-26 MG tablet Take 1 tablet by mouth 2 times a day. estradiol (Vivelle-DOT) 0.025 MG/24HR estradiol 2MG DAILY famotidine (Pepcid) 40 MG tablet famotidine 40 mg glucosamine-chondroitin 500-400 MG tablet Take 1 tablet by mouth 3 times a day. hydroxychloroquine (Plaquenil) 200 MG tablet hyoscyamine (Levsin) 0.125 MG SL tablet LORazepam (Ativan) 1 MG tablet Take 1 tablet by mouth daily. Magnesium 100 MG capsule magnesium 500MG DAILY Melatonin 12 MG tablet Take 24 mg by mouth. Motegrity 2 MG tablet Take 1 tablet (2 mg) by mouth 1 (one) time each day. nortriptyline (Pamelor) 50 MG capsule Take 1 capsule (50 mg) by mouth 1 (one) time each day. (Patient taking differently: Take 75 mg by mouth 1 time each day.) ondansetron (Zofran) 4 MG tablet polyethylene glycol (Miralax) 17 g packet Take 17 g by mouth daily. promethazine (Phenergan) 25 MG tablet Take 1 tablet (25 mg) by mouth every 8 (eight) hours if needed. Voquezna 20 MG tablet Take 1 tablet by mouth 1 time each day. amitriptyline (Elavil) 10 MG tablet Take 7.5 tablets (75 mg) by mouth every night. (Patient not taking: Reported on 09/27/2024) bethanechol (Urecholine) 25 MG tablet Take 1 tablet (25 mg) by mouth 3 times a day. (Patient not taking: Reported on 09/27/2024) busPIRone (Buspar) 10 MG tablet cholecalciferol (Vitamin D3) 200 Unit tablet split tablet Take 5,000 Units by mouth 1 (one) time each day. Blzftzmu-Kzdtk-Muoozuslgy Acid (Move Free [facility] [employer] [facility]) 40-5-3.3 MG tablet (Patient not taking: Reported on 09/27/2024) dexlansoprazole (Dexilant) [address] capsule Take 1 capsule (60 mg) by mouth 1 (one) time each day. pantoprazole (Protonix) 20 MG EC tablet Protonix pyridostigmine (Mestinon) 60 MG tablet Take 0.5 tablets (30 mg) by mouth 3 (three) times a day. traMADol (Ultram) 50 MG tablet every 12 (twelve) hours. No current facility-administered medications for this visit. documented in this encounter Plan of Treatment Upcoming Encounters Date Type Department Care Team (Late st Contact Info) Description 10/26/2024 10:10 AM EDT Consult [facility] Medicine Specialties [address], [address] [place] [address] 11/20/2024 10:00 AM EDT Office Visit [facility] [address], [address] [place] [phone] Sara Johnson, CAROLE [address] [place] [phone] 01/08/2025 4:00 PM EST Office Visit [facility] [address], [address] [place] [phone] Mitul Garza MD [address] [place] [address] 02/19/2025 9:00 AM EST Ancillary Procedure [facility] [address], [address] [place] [address] 02/19/2025 10:00 AM EST Office Visit [facility] Medicine Specialties [address] 2nd [place] [address] Mariam Urban MD [address] [place] [phone] Pending Results Name Type Priority Associated Diagnoses Date /Time Adult Patch Monitor - 14 Day Cardiac Services Routine Bradycardia 09/27/2024 4:48 PM EDT Scheduled Orders Name Type Priority Associated Diagnoses Orde r Schedule Adult Patch Monitor - 14 Day Cardiac Services Routine Bradycardia 1 Occurrences starting 09/27/2024 until 03/31/2026 Scheduled Referrals Name Type Priority Associated Diagnoses Orde r Schedule Ambulatory referral to Rheumatology Outpatient Referral Routine Chronic heart failure, unspecified heart failure type (CMS/[facility]) Expected: 09/27/2024 (Approximate), Expires: 03/31/2026 Follow Up Cardiology Outpatient Referral Routine Chronic heart failure, unspecified heart failure type (CMS/HCC) Expected: 12/28/2024, Expires: 03/30/2026 Follow Up Cardiology Outpatient Referral Routine Chronic heart failure, unspecified heart failure type (CMS/HCC) Expected: 10/16/2024 (Approximate), Expires: 03/30/2026 documented as of this encounter Goals Goal Patient Goal Type Associated Problems Recent Progress Patient-Stated? Author Patient will verbalize understanding of orthotic wear , care and precautions. Occupational Therapy Pat Oneal documented as of this encounter Procedures Procedure Name Priority Date/Time Associated Diagnosis Comments CREATINE KINASE, TOTAL, PLASMA Routine 09/27/2024 4:33 PM EDT Chronic heart failure, unspecified heart failure type (CMS/HCC) N-TERMINAL PROBNP, PLASMA Routine 09/27/2024 4:33 PM EDT Chronic heart failure, unspecified heart failure type (CMS/HCC) ANGIOTENSIN CONVERTING ENZYME, SERUM (SO) Routine 09/27/2024 4:33 PM EDT Chronic heart failure, unspecified heart failure type (CMS/HCC) COMPREHENSIVE METABOLIC PANEL, PLASMA Routine 09/27/2024 4:33 PM EDT Chronic heart failure, unspecified heart failure type (CMS/HCC) ECG ADULT Routine 09/27/2024 3:31 PM EDT Chronic heart failure, unspecified heart failure type (CMS/HCC) documented in this encounter Results * MR Cardiac Morphology and Function W Velocity Flow Mapping W and WO Contrast (10/18/2024 1:03 PM EDT) Anatomical Region Laterality Modality Heart Magnetic Resonan ce Impressions 10/18/2024 4:46 PM EDT 1. Mildly dilated left ventricle with mildly reduced global systolic function (LVEF 41%). The basal and mid septum is akinetic with hypokinesis of the mid anterior wall. There is abnormal septal translation and systole. There is no evidence of left ventricular myocardial late gadolinium enhancement. Normal T2 mapping as well as inupiat T1 mapping and ECV is not suggestive of acute inflammatory or infiltrative cardiomyopathy. Findings of a dilated cardiomyopathy without features to suggest a specific underlying etiology. 3. Normal sized right ventricle with normal global systolic function (RVEF 63%). 4. No significant valvular abnormalities. 5. No evidence of intra-cardiac shunt, Qp:Qs of 1:1 by complex flow analysis. Critical Result: No. COMMUNICATION: Per this written report. By electronically signing this report, I, the attending physician, attest that I have personally reviewed the images/data for the above examination(s) and agree with the final edited report. Drafted by Oral Palmer on 10/18/2024 1:11 PM Final report signed by Quinten Nolasco MD on 10/18/2024 4:46 PM Narrative 10/18/2024 4:46 PM EDT CLINICAL INFORMATION: 49 years old female with a past medical history of Raynauds phenomenon, limited scleroderma, esophageal dysmotility, GERD with dysphagia and Silveira's esophagus status post Jim fundoplication in 2019, fibromyalgia and recently diagnosed heart failure with reduced ejection fraction who presents for cardiac MRI at the request of Mitul Garza MD for suspected cardiac sarcoidosis in the setting of new systolic heart failure. Body surface area (BSA): 1.88 m2 Baseline heart rate: 82 beats/min Baseline heart rhythm: 82 Comparison Imaging: None. SCAN TECHNIQUE: Cardiac MRI with and without contrast was performed on 1.5T Siemens Aera MRI scanner. Imaging sequences included bright blood axial stack with TRUFI, cine with SSFP, pre- and post-contrast T1 mapping, T2 mapping, first pass perfusion at rest, long TI inversion recovery, and late gadolinium enhancement. Phase-contrast complex flow analysis was also performed 2 during this examination with flow quantification performed at the levels of the aortic root and pulmonic valve. Contrast: A total volume of 12.3mL (0.15mmol/kg) of Gadavist (gadobutrol) was administered intravenously via a peripheral IV without any adverse effects. Study Quality: Good. Artifacts present include: non-limiting mild breathing motion artifacts. FINDINGS: --- Qualitative Assessment --- LV Cavity Size / Morphology: Mildly Dilated LV Hypertrophy: None LV Global Function: Mildly Depressed RV Cavity Size / Morphology: Normal RV Hypertrophy: None RV Function: Normal Left Atrial Size: Normal Right Atrial Size: Normal Segmental Function (16 segment model): Basal LV: Anterior septal and inferior septal segments are akinetic Mid LV: Anterior septal and inferior septal segments are akinetic. Hypokinesis of the anterior. Distal LV: Normal Regional Wall Motion Score Index (Score/segments) = 1.9 (1.0 = normal; 1.0-1.5 = mild; 1.6-2.0 = moderate; >2.0 = severe) Valves: Aortic Valve: Normal appearing with no significant stenosis or regurgitation Mitral Valve: Normal appearing with no prolapse or cleft, and no significant stenosis or regurgitation Tricuspid Valve: Normal appearing with no significant stenosis or regurgitation Pulmonary Valve: Normal appearing with no significant stenosis or regurgitation Aorta: Left-sided arch, normal in size without aneurysmal changes or coarctation. Pericardium: Normal, no pericardial effusion. Other: No significant extracardiac abnormalities. --- Quantitative Measurements --- (normal values, reference: Chaya Lucas et al. J Cardiovasc Magn Reson. 2020;22:87) LVEF: 41% (52 - 79) LVEDV: 171ml (70 - 155) LVESV: 101ml (15 - 64) LV Stroke Volume: 70ml (47 - 99) LV Mass (measured at end-diastole excluding papillary muscles): 81gm (43 - 103) LVEDVI: 91ml/m2 (45 - 93) LVESVI: 54ml/m2 (10 - 38) LV Mass Index: 42gm/m2 (30 - 59) RVEF: 63% (52 - 80) RVEDV: 104ml (79 - 175) RVESV: 39ml (13 - 75) RV Stroke Volume: 65ml (56 - 110) RVEDVI: 55ml/m2 (51 - 97) RVESVI: 21ml/m2 (9 - 42) Left Atrial Volume Index: 38mL/m2 (17 - 61) Right Atrial Volume Index: 22mL/m2 (16 - 54) Aortic Root at the Sinuses of Valsalva: 20 x 22 x 24 mm Mid-Ascending Thoracic Aorta: 20 x 21mm Descending Thoracic Aorta: 15 x 15mm --- Complex Flow Analysis --- Pulmonary Flow (Qp): 74mL total (net) volume. 78mL forward volume. 4mL regurgitant volume. No significant pulmonic regurgitation (regurgitation fraction <10%). No significant pulmonic stenosis. Systemic Flow (Qs): 69mL total (net) volume. 71mL forward volume. 2mL regurgitant volume. No significant aortic regurgitation (regurgitation fraction <10%). No significant aortic stenosis. Qp:Qs ratio based on flow analysis is approximately 1:1. --- Tissue Characterization --- T1 Mapping: Myocardial inupiat T1: 1192ms Blood pool inupiat T1: 1657ms Myocardial post contrast T1: 415ms Blood pool post contrast T1: 234ms Hematocrit: 34 ECV: 28%, which is normal (reference on 1.5T MRI is 25% 4%) T2 Mapping: Septum: 56ms with no significant regional variability, which is normal (reference on 1.5T MRI is ~45-60ms) --- Viability (late gadolinium enhancement) --- (Note: Transmural extent of infarct is a marker of viable myocardium: <25% is viable, 25-50% is mixed; likely viable, 50-75% is mixed; likely non-viable, >75% is non-viable) Basal LV: No late gadolinium enhancement. Mid LV: No late gadolinium enhancement. Distal LV: No late gadolinium enhancement. Apical Cap: No late gadolinium enhancement. Procedure Note Quinten Nolasco MD - 10/18/2024 CLINICAL INFORMATION: 49 years old female with a past medical history of Raynauds phenomenon,limited scleroderma, esophageal dysmotility, GERD with dysphagia andBarrett's esophagus status post Jim fundoplication in 2019,fibromyalgia and recently diagnosed heart failure with reduced ejectionfraction who presents for cardiac MRI at the request of Mitul Garza MD for suspected cardiac sarcoidosis in the setting of new systolic heartfailure. Body surface area (BSA): 1.88 m2 Baseline heart rate: 82 beats/min Baseline heart rhythm: 82 Comparison Imaging: None. SCAN TECHNIQUE: Cardiac MRI with and without contrast was performed on 1.5T Siemens AeraMRI scanner. Imaging sequences included bright blood axial stack withTRUFI, cine with SSFP, pre- and post-contrast T1 mapping, T2 mapping,first pass perfusion at rest, long TI inversion recovery, and lategadolinium enhancement. Phase-contrast complex flow analysis was alsoperformed 2 during this examination with flow quantification performed atthe levels of the aortic root and pulmonic valve. Contrast: A total volume of 12.3mL (0.15mmol/kg) of Gadavist (gadobutrol)was administered intravenously via a peripheral IV without any adverseeffects. Study Quality: Good. Artifacts present include: non-limiting mildbreathing motion artifacts. FINDINGS: --- Qualitative Assessment --- LV Cavity Size / Morphology: Mildly Dilated LV Hypertrophy: None LV Global Function: Mildly Depressed RV Cavity Size / Morphology: Normal RV Hypertrophy: None RV Function: Normal Left Atrial Size: Normal Right Atrial Size: Normal Segmental Function (16 segment model): Basal LV: Anterior septal and inferior septal segments are akinetic Mid LV: Anterior septal and inferior septal segments are akinetic.Hypokinesis of the anterior. Distal LV: Normal Regional Wall Motion Score Index (Score/segments) = 1.9 (1.0 = normal; 1.0-1.5 = mild; 1.6-2.0 = moderate; >2.0 = severe) Valves: Aortic Valve: Normal appearing with no significant stenosis orregurgitation Mitral Valve: Normal appearing with no prolapse or cleft, and nosignificant stenosis or regurgitation Tricuspid Valve: Normal appearing with no significant stenosis orregurgitation Pulmonary Valve: Normal appearing with no significant stenosis orregurgitation Aorta: Left-sided arch, normal in size without aneurysmal changes orcoarctation. Pericardium: Normal, no pericardial effusion. Other: No significant extracardiac abnormalities. --- Quantitative Measurements --- (normal values, reference: Chaya Lucas et al. J Cardiovasc Magn Reson.2020;22:87) LVEF: 41% (52 - 79) LVEDV: 171ml (70 - 155) LVESV: 101ml (15 - 64) LV Stroke Volume: 70ml (47 - 99) LV Mass (measured at end-diastole excluding papillary muscles): 81gm (43 -103) LVEDVI: 91ml/m2 (45 - 93) LVESVI: 54ml/m2 (10 - 38) LV Mass Index: 42gm/m2 (30 - 59) RVEF: 63% (52 - 80) RVEDV: 104ml (79 - 175) RVESV: 39ml (13 - 75) RV Stroke Volume: 65ml (56 - 110) RVEDVI: 55ml/m2 (51 - 97) RVESVI: 21ml/m2 (9 - 42) Left Atrial Volume Index: 38mL/m2 (17 - 61) Right Atrial Volume Index: 22mL/m2 (16 - 54) Aortic Root at the Sinuses of Valsalva: 20 x 22 x 24 mm Mid-Ascending Thoracic Aorta: 20 x 21mm Descending Thoracic Aorta: 15 x 15mm --- Complex Flow Analysis --- Pulmonary Flow (Qp): 74mL total (net) volume. 78mL forward volume. 4mLregurgitant volume. No significant pulmonic regurgitation (regurgitationfraction <10%). No significant pulmonic stenosis. Systemic Flow (Qs): 69mL total (net) volume. 71mL forward volume. 2mLregurgitant volume. No significant aortic regurgitation (regurgitationfraction <10%). No significant aortic stenosis. Qp:Qs ratio based on flow analysis is approximately 1:1. --- Tissue Characterization --- T1 Mapping: Myocardial inupiat T1: 1192ms Blood pool inupiat T1: 1657ms Myocardial post contrast T1: 415ms Blood pool post contrast T1: 234ms Hematocrit: 34 ECV: 28%, which is normal (reference on 1.5T MRI is 25% 4%) T2 Mapping: Septum: 56ms with no significant regional variability, which is normal(reference on 1.5T MRI is ~45-60ms) --- Viability (late gadolinium enhancement) --- (Note: Transmural extent of infarct is a marker of viable myocardium: <25%is viable, 25-50% is mixed; likely viable, 50-75% is mixed; likelynon-viable, >75% is non-viable) Basal LV: No late gadolinium enhancement. Mid LV: No late gadolinium enhancement. Distal LV: No late gadolinium enhancement. Apical Cap: No late gadolinium enhancement. IMPRESSION: 1. Mildly dilated left ventricle with mildly reduced global systolicfunction (LVEF 41%). The basal and mid septum is akinetic with hypokinesisof the mid anterior wall. There is abnormal septal translation andsystole. There is no evidence of left ventricular myocardial lategadolinium enhancement. Normal T2 mapping as well as inupiat T1 mapping andECV is not suggestive of acute inflammatory or infiltrativecardiomyopathy. Findings of a dilated cardiomyopathy without features tosuggest a specific underlying etiology. 3. Normal sized right ventricle with normal global systolic function (RVEF63%). 4. No significant valvular abnormalities. 5. No evidence of intra-cardiac shunt, Qp:Qs of 1:1 by complex flowanalysis. Critical Result: No. COMMUNICATION: Per this written report. By electronically signing this report, I, the attending physician, reggieat I have personally reviewed the images/data for the aboveexamination(s) and agree with the final edited report. Drafted by Oral Palmer on 10/18/2024 1:11 PM Final report signed by Quinten Nolasco MD on 10/18/2024 4:46 PM Mitul Garza MD IMG MRI PROCEDURES Final Resul t * Creatine Kinase (CK), Total (09/27/2024 4:33 PM EDT) Creatine Kinase, Plasma 59 37 - 168 U/L 09/27/2024 5:51 PM EDT [facility] Blood Venous blood specimen / Unknown Venipuncture / Unknown 09/27/2024 4:33 PM EDT 09/27/2024 4:34 PM EDT us Mitul Garza MD LAB BLOOD ORDERABLES Final Res ult Performing Organization Address City/State/RUST Co de Phone Number [facility] [address] [place] [id number] * Angiotensin converting enzyme (09/27/2024 4:33 PM EDT) ANGIOTENSIN CONVERTING ENZYME 37 16 - 85 U/L 09/29/2024 11:50 PM EDT [employer] [facility]) Blood Venous blood specimen / Unknown Venipuncture / Unknown 09/27/2024 4:33 PM EDT 09/27/2024 4:34 PM EDT Narrative [employer] DAR[facility]O) - 09/29/2024 11:50 PM EDT Performed By: [employer] [address] [place] [id number] [employer] Utility Worker: Fidel Sullivan MD, PhD CLIA Number: [id number] us Mitul Garza MD LAB BLOOD ORDERABLES Final Res ult [facility] ([facility] [address] [place] [address] * N-Terminal Probnp, Plasma (09/27/2024 4:33 PM EDT) N-Terminal, PROBNP, Plasma 238 0 - 899 pg/mL 09/27/2024 5:51 PM EDT [facility] Blood Venous blood specimen / Unknown Venipuncture / Unknown 09/27/2024 4:33 PM EDT 09/27/2024 4:34 PM EDT us Mitul Garza MD LAB BLOOD ORDERABLES Final Res ult [facility] [address] [place] [address] * Comprehensive metabolic panel (09/27/2024 4:33 PM EDT) Glucose, Plasma 89 74 - 99 mg/dL 09/27/2024 5:51 PM EDT [facility] BUN, Plasma 11 7 - 21 mg/dL 09/27/2024 5:51 PM EDT [facility] Creatinine, Plasma 1.01 0.60 - 1.10 mg/dL 09/27/2024 5:51 PM EDT [facility] BUN/Creatinine Ratio 11 09/27/2024 5:51 PM EDT [facility] Sodium, Plasma 137 136 - 145 mmol/L 09/27/2024 5:51 PM EDT [facility] Potassium, Plasma 4.1 3.6 - 4.9 mmol/L 09/27/2024 5:51 PM EDT [facility] Chloride, Plasma 101 97 - 107 mmol/L 09/27/2024 5:51 PM EDT [facility] CO2, Plasma 26 22 - 29 mmol/L 09/27/2024 5:51 PM EDT [facility] Anion Gap 10 6 - 16 mmol/L 09/27/2024 5:51 PM EDT [facility] Total Calcium, Plasma 9.5 8.9 - 10.2 mg/dL 09/27/2024 5:51 PM EDT [facility] Total Protein 6.9 6.3 - 7.9 g/dL 09/27/2024 5:51 PM EDT [facility] Albumin, Plasma 4.1 3.5 - 5.2 g/dL 09/27/2024 5:51 PM EDT [facility] AST, Plasma 26 10 - 35 U/L 09/27/2024 5:51 PM EDT [facility] ALT, Plasma 19 10 - 35 U/L 09/27/2024 5:51 PM EDT [facility] Alkaline Phosphatase, Plasma 89 35 - 104 U/L 09/27/2024 5:51 PM EDT [facility] Total Bilirubin, Plasma 0.3 0.2 - 1.1 mg/dL 09/27/2024 5:51 PM EDT [facility] eGFRcr 67.5 mL/min/1.7 3m*2 09/27/2024 5:51 PM EDT [facility] Comment:Reported eGFRcr in m L/min/1.73m2 is based the CKD-EPI 2020 equation that does not use a race coefficient. Blood Venous blood specimen / Unknown Venipuncture / Unknown 09/27/2024 4:33 PM EDT 09/27/2024 4:34 PM EDT us Mitul Garza MD LAB BLOOD ORDERABLES Final Res ult [facility] [address] [place] [address] * ECG Adult (Now - Performed in your clinic) (09/27/2024 3:31 PM EDT) EKG DIAGNOSIS CLASS Abnormal MUSE ECG Ventricular Rate 77 BPM MUSE ECG Atrial Rate 77 BPM MUSE ECG OH Interval 172 ms MUSE ECG QRSD Interval 154 ms MUSE ECG QT Interval 470 ms MUSE ECG QTC Interval 531 ms MUSE ECG P [place] 53 degrees MUSE ECG R [place] -40 degrees MUSE ECG T Wave [place] 59 degrees MUSE ECG Diagnosis Normal sinus rhythm MUSE ECG Diagnosis Left axis deviation MUSE ECG Diagnosis Left bundle branch block MUSE ECG Diagnosis Abnormal ECG MUSE ECG Diagnosis MUSE ECG Diagnosis Confirmed by Michael Schmitt ([id number]) on 09/27/2024 3:52:08 PM MUSE ECG 09/27/2024 3:31 PM EDT 09/27/2024 3:52 PM EDT us Mitul Garza MD ECG ORDERABLES Final Result MUSE ECG documented in this encounter Visit Diagnoses Diagnosis Chronic heart failure, unspecified heart failure type (CMS/HCC)- Primary Bradycardia Other specified cardiac dysrhythmias Chronic heart failure, unspecified heart failure type (CMS/HCC) Bradycardia Other specified cardiac dysrhythmias documented in this encounter Additional Health Concerns Assessment Noted Time PHQ-9 Depression Total Score: 0 09/28/19 25 3:19 PM EDT A fall risk assessment has been complete d for the patient 09/27/2024 3:19 PM EDT A Body Mass Index follow-up plan has been documented for the patient 09/29/2024 4:22 PM EDT documented as of this encounter Care Teams Legislative Advocate Relationship Specialty Start Date End Date Bill Lamar MD [address] [facility] [place] [address] PCP - General 04/13/22 documented as of this encounter
--- OUTSIDE RECORDS SUMMARY | 2024-09-27 16:30 | XMS_ITS | Encounter Summary ---
Author Organization [facility] Address [address] [id number] Care Team Providers Care Blow Up Operator Name Role Phone Bill Lamar MD Primary Care Provider [phone] Reason for Referral * Cardiac Stress Testing (Routine) - Closed Specialty Diagnoses / Procedures Referred By Contac t Referred To Contact Cardiology Diagnoses Bradycardia Procedures Adult Patch Monitor - 14 Day Mitul Garza MD [address] [place] [address] Phone: tel: fax: Referral ID Status Reason Start Date Expiration Date Visits Re quested Visits Authorized [id number] Closed 09/27/2024 03/29/2026 1 1 Reason for Visit * Cardiac Stress Testing (Routine) - Closed Specialty Diagnoses / Procedures Referred By Wander aragon Referred To Contact Cardiology Diagnoses Bradycardia Procedures Adult Patch Monitor - 14 Day Mitul Garza MD [address] [place] [address] Phone: tel: fax: Referral ID Status Reason Start Date Expiration Date Visits Re quested Visits Authorized [id number] Closed 09/27/2024 03/29/2026 1 1 Encounter Details Date Type Department Care Team (Latest Contact Info) Description 09/27/2024 4:30 PM EDT - 09/27/2024 11:59 PM EDT Hospital Encounter Medical Office Building Cardiac Diagnostic Testing Medical Office Building Echo Lab [address] [facility], [address] [place] [address] Bradycardia Discharge Disposition: Home or Self Care Social History Tobacco Use Types Packs/Day Years [...] on file documented as of this encounter Functional Status * Over the [...] Not at all 09/27/2024 3: 19 PM EDT Charmaine Alaniz CNA Feeling bad about yourself - or that you are a failure or have let yourself or your family down Not at all 09/27/2024 3:19 PM Charmaine Wilson CNA Trouble concentrating on things, such as reading the newspaper or watching television Not at all 09/27/2024 3:19 PM EDT Charmaine Alaniz CNA Moving or speaking so slowly that [...] Wilson CNA documented as of this encounter Medications at Time of Discharge acetaminophen (Tylenol) 500 MG tablet Take 2 tablets by mouth every 6 hours as needed. carvedilol (Coreg) 3.125 MG tablet Take 1 tablet by mouth 2 times a day. colchicine (Colcrys) 0.6 MG tablet empagliflozin (Jardiance) 10 MG Take 1 tablet by mouth 1 time each day. 02/06/2024 estradiol (Vivelle-DOT) 0.025 MG/24HR estradiol 2MG DAILY famotidine (Pepcid) 40 MG tablet famotidine 40 mg glucosamine-sean droitin 500-400 MG tablet Take 1 tablet by mouth 3 times a day. hydroxychloroqui ne (Plaquenil) 200 MG tablet hyoscyamine (Levsin) 0.125 MG SL tablet 08/01/2024 LORazepam (Ativan) 1 MG tablet Take 1 tablet by mouth daily. Magnesium 100 MG capsule magnesium 500MG DAILY Melatonin 12 MG tablet Take 24 mg by mouth. Motegrity 2 MG tablet Take 1 tablet (2 mg) by mouth 1 (one) time each day. 11/09/2023 nortriptyline (Pamelor) 50 MG capsule Take 1 capsule (50 mg) by mouth 1 (one) time each day. 08/19/2022 ondansetron (Zofran) 4 MG tablet polyethylene glycol (Miralax) 17 g packet Take 17 g by mouth daily. promethazine (Phenergan) 25 MG tablet Take 1 tablet (25 mg) by mouth every 8 (eight) hours if needed. 09/26/2023 Voquezna 20 MG tablet Take 1 tablet by mouth 1 time each day. 08/22/2024 amitriptyline (Elavil) 10 MG tablet Take 7.5 tablets (75 mg) by mouth every night. 10/28/2021 5 bethanechol (Urecholine) 25 MG tablet Take 1 tablet (25 mg) by mouth 3 times a day. 08/30/2023 5 busPIRone (Buspar) 10 MG tablet 5 cholecalciferol (Vitamin D3) 200 Unit tablet split tablet Take 5,000 Units by mouth 1 (one) time each day. 5 Mzflzhnu-Jdmbb-O yaluronic Acid (Move Free Neur[employer]) 40-5-3.3 MG tablet 5 dexlansoprazole (Dexilant) [address] capsule Take 1 capsule (60 mg) by mouth 1 (one) time each day. 05/10/2023 5 pantoprazole (Protonix) 20 MG EC tablet Protonix 5 pyridostigmine (Mestinon) 60 MG tablet Take 0.5 tablets (30 mg) by mouth 3 (three) times a day. 06/29/2022 5 sacubitril-valsa rtan (Entresto) 49-51 MG tablet Take 1 tablet by mouth 2 times a day. 60 tablet 5 09/27/2024 5 traMADol (Ultram) 50 MG tablet every 12 (twelve) hours. 5 documented as of this encounter Plan of Treatment Upcoming Encounters Date Type Department Care Team (Late st Contact Info) Description 10/26/2024 10:10 AM EDT Consult [facility] [address] [place] [address] 11/20/2024 10:00 AM EDT Office Visit [facility] [address] [address] [facility], [address] [place] [address] Sara Johnson APRN [address] [place] [address] 01/08/2025 4:00 PM EST Office Visit [facility] [place] [address] [facility], [address] [place] [address] Mitul Garza MD [address] [place] [address] 02/19/2025 9:00 AM EST Ancillary Procedure [facility] [address] [place] [address] 02/19/2025 10:00 AM EST Office Visit [facility] [address] [place] [address] Mariam Urban MD [address] [place] [address] Pending Results Name Type Priority Associated Diagnoses Date /Time Adult Patch Monitor - 14 Day Cardiac Services Routine Bradycardia 09/27/2024 4:48 PM EDT Scheduled Orders Name Type Priority Associated Diagnoses Orde r Schedule Adult Patch Monitor - 14 Day Cardiac Services Routine Bradycardia Once for 1 Occurrences starting 09/28/2024 until 09/28/2024 documented as of this encounter Goals Goal Patient Goal Type Associated Problems Recent Progress Patient-Stated? Author Patient will verbalize understanding of orthotic wear , care and precautions. Occupational Therapy Pat Oneal documented as of this encounter Visit Diagnoses Diagnosis Bradycardia Other specified cardiac dysrhythmias documented in this encounter Additional Health Concerns Assessment Noted Time PHQ-9 Depression Total Score: 0 09/28/19 3:19 PM EDT A fall risk assessment has been complete d for the patient 09/27/2024 3:19 PM EDT A Body Mass Index follow-up plan has been documented for the patient 09/29/2024 4:22 PM EDT documented as of this encounter Care Teams Blow Up Operator Relationship Specialty Start Date End Date Bill Lamar MD [address] [place] [address] PCP - General 04/13/22 documented as of this encounter
--- OUTSIDE RECORDS SUMMARY | 2024-10-06 10:05 | XMS_ITS | Encounter Summary ---
Author Organization Healthcare Address [facility] [place] [id number] Care Team Providers Care Chiropractic Doctor Name Role Phone Bill Lamar MD Primary Care Provider [phone] Reason for Visit * Reason Comments Chest Pain Encounter Details Date Type Department Care Team (Late st Contact Info) Description 10/06/2024 10:05 AM EDT - 10/06/2024 1:37 PM EDT Emergency [facility] Emergency Department [address] [place] [address] Maldonado Snell MD [address] [place] [address] Chest wall pain (Primary Dx) Discharge Disposition: Home or Self Care Social History Tobacco Use Types Packs/Day Years Used Date Smoking Tobacco: Never Smokeless Tobacco: Never Alcohol Use Standard Drinks/Week Comments Yes 2 (1 standard drink = 0.6 oz pur e alcohol) PHQ-2 Answer Date Recorded Patient Health Questionnaire-2 Score 0 09/27/2024 PHQ-9 Answer Date Recorded Patient Health Questionnaire-9 Score 0 09/27/2024 CAGE ASSESSMENT Answer Date Recorded Cage unable to access Not on file 10/06/2024 Maximum number of drinks you had on a given occasion in the last month? 3 drinks 10/06/2024 How many alcoholic Beverages do you typically drink in a week? 0 - 7 per week 10/06/2024 Have you ever felt you should CUT down on your d rinking? 0 10/06/2024 Have you been ANNOYED by peo ple criticizing your drinking? 0 10/06/2024 Have you felt GUILTY about your drinking? 0 10/06/2024 Have you had a drink first t cyndie in the morning ([employer]) to steady your nerves or to get rid of a hangover? 0 10/06/2024 CAGE Questionnaire Score 0 025 PHQ-2A Answer Date Recorded Patient Health Questionnaire-2 Score 0 06/15/2022 Comments No Sex and Gender Information Value Date Recorded Sex Assigned at Not on file Legal Sex Female 6:18 PM EDT Gender Identity Not on file Sexual Orientation Not on file documented as of this encounter Last Filed Vital Signs Vital Sign Reading Time Taken Comments Blood Pressure 104/66 10/06/2024 1:12 PM EDT Pulse 73 10/06/2024 1:12 PM EDT Temperature 36.5 C (97.7 F) 10/06/2024 1:12 PM EDT Respiratory Rate 18 10/06/2024 1:12 PM EDT Oxygen Saturation 99% 10/06/2024 1:12 PM EDT Inhaled Oxygen Concentration - - Weight 81.6 kg (180 lb) 10/06/2024 11:00 AM EDT Height - - Body Mass Index 34.01 09/27/2024 2:59 PM EDT documented in this encounter Functional Status * Calculated C-SSRS Risk Score (Lifetime/Recent) Answer Date of Assessment Author No Risk Indicated 10/06/2024 10:15 AM EDT Kimberly Guaman RN * Question Answer Date of Assessment Author 1. Wish to be (Past 1 Month) No 025 10:15 AM EDT Kimberly Guaman RN 2. Non-Specific Active Suici argenis Thoughts (Past 1 Month) No 10/06/2024 10:15 AM EDT Sussy Guaman RN 6. Suicidal Behavior (Lifetime) No 10:15 AM EDT Kimberly Guaman RN documented as of this encounter Discharge Instructions * Discharge Instructions* Courtney Mcghee PA - 10/06/2024 1:03 PM EDT Return to ER for worsening pain, pain associated with shortness of breath, numbness or tingling in the face or extremities, pain associated with nausea or vomiting, or otherwise as needed documented in this encounter Medications at Time of Discharge [...] by mouth 1 time each day. 08/22/2024 cyclobenzaprine (Flexeril) 5 MG tabletIndication s:Muscle Spasm,pain Take 1 tablet by mouth 3 times a day for 5 days. 15 tablet 10/06/2024 5 sacubitril-valsa rtan (Entresto) 49-51 MG tablet Take 1 tablet by mouth 2 times a day. 60 tablet 5 09/27/2024 documented as of this encounter Miscellaneous Notes * Courtney Luke PA - 10/06/2024 1:02 PM EDT Images from the original note were not included. [id number] Uncertain Causes of Chest Pain Chest pain can happen for a number of reasons. Sometimes the cause can't be found. If you've been checked by your health care provider and your condition does not seem serious, and if your pain does not appear to be coming from your heart, your provider may recommend closely watching for any symptoms. Sometimes the signs of a serious problem take more time to appear. Many problems not related to your heart can cause chest pain, such as: ? Musculoskeletal problems. These include costochondritis (an inflammation of the tissues around the ribs that can occur from trauma or overuse injuries) and a strain of the chest wall muscles. ? Respiratory problems. These include pneumonia, collapsed lung (pneumothorax), and inflammation ofthe lining of the chest and lungs (pleurisy). ? Gastrointestinal problems. These include esophageal reflux, heartburn, ulcers, and gallbladder disease. ? Anxiety and panic disorders. ? Nerve compression and inflammation. ? Rare problems, such as aortic aneurysm or aortic dissection (a swelling of the large artery coming out of the heart or a tear in the wall of the artery), and pulmonary embolism (a blood clot in thelungs). Home care After your visit, make sure to: ? Rest today, and stay away from strenuous activity. ? Take any prescribed medicine as directed. ? Be aware of any chest pain that comes back, and notice any changes. Follow-up care Follow up with your health care provider if you don't start to feel better within 24 hours, or as advised. Call 911 Call 911 if you have: ? A change in the type of pain. It may feel different, become more severe, last longer, or begin tospread into your shoulder, arm, neck, jaw, or back. ? Shortness of breath or increased pain with breathing. ? Weakness, dizziness, or fainting. ? A rapid heartbeat. ? A crushing feeling in your chest. ? Coughing up more than a small amount of blood. When to get medical advice Call your health care provider or get medical care right away if you have: ? A cough with dark colored sputum (phlegm) or small amount of blood. ? A fever of 100.4??F (38??C) or higher, or as directed by your provider. ? Swelling, pain, or redness in one leg. Last Reviewed Date: 2024 00:00:00 ?? [id number] [employer]. All rights reserved. This information is not intended as a substitute for professional medical care. Always follow your healthcare professional's instructions. * ED Provider Notes - Courtney Mcghee PA - 10/06/2024 9:33 AM EDT Images from the original note were not included. - HPI Chief Complaint Patient presents with Chest Pain PIT NOTE Melinda Aponte is a 49 y.o. female with a PMHx of longstanding Raynauds phenomenon, limited scleroderma (anticentromere antibody positive, puffy fingers, positive sicca, telangiectasias), esophagealdysmotility, GERD w/ dysphagia and Silveira's esophagus (s/p Jim fundoplication 2018), fibromyalgi a, and HFrEF who presents to the ED with chest pin. Pt complains of intermittent episodes of chest pain which onset this morning. Pt states she has experienced 3 episodes of chest pain this morning, pt adds each of the episodes have lasted approximately 5 mins. Pt notes she is not currently having any chest pain. Pt describes the pain as stabbing in nature and reports her chest feels tight. Pt claims the chest pain is located in the L side of her chest and radiates to her upper back. Pt states during the chest pain episodes this morning she also experienced SOA, dizziness, and diaphoresis. Ptclaims she has experienced episodic chest pain for approximately x2 years and she is currently following with cardiology d/t her past medical hx and h/o HFrEF. Pt is currently wearing a Holter monitor d/t bradycardia, and states she is supposed to return it next . Patient denies fever, abdominal pain, N/V/D, urinary symptoms, headache, numbness. Last cardiac cath (09/16/2023) with No angiographic CAD . DANETTE Note In addition to above HPI. Of note, just seen in cardiology clinic for follow up nine days ago (09/27/24) with the following noted: Ms. Aponte is a 49 year old with history of longstanding Raynauds phenomenon, limited scleroderma [...], esophageal dysmotility, GERD with dysphagia and Silveira's esophagus status post Jim fundoplication in 2019, fibromyalgia and recently diagnosed heart failure with reduced ejection fraction, most recently established care with Dr. Adele Lewis on 01/09/2024 at [facility]. Ms. Aponte was started on GDMT (Entresto, low dose Coreg, Jardiance). More recently in 08/2024, she had an echo done at [facility] which noted LV systolic dysfunction with increased LV wall thickness (LVEF 35-40%). She follows at [facility] for diagnosis of scleroderma and has [...] at this time by Dr. Faraz Laurent ([facility]). She states that she continues to get HRreadings in the 40's on her fit bit associated with dizziness. She was having discussion with her local can filler in [place] on whether she should get a loop recorder placed. [...] She recently had a CT chest done at [facility] which showed multiple tiny lung nodules. She says these nodules were not noted before. However, it appears that a second opinion read of the same CT done at [facility] noted that this was not significantly changed from prior exams there. Today, she reports the following heart failure symptoms: [...] - Chest pain: Yes, feels like tightness , every few days, random, lasts for a minute , no radiation. 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 Constitutional: General: She is not in acute distress. Appearance: Normal appearance. She is well-developed. HENT: Head: Normocephalic and atraumatic. Right Ear: External ear normal. Left Ear: External ear normal. Nose: Nose normal. Eyes: Conjunctiva/sclera: Conjunctivae normal. Cardiovascular: Rate and Rhythm: Normal rate and regular rhythm. Heart sounds: No murmur heard. Pulmonary: Effort: Pulmonary effort is normal. No respiratory distress. Breath sounds: Normal breath sounds. Abdominal: General: Abdomen is flat. Palpations: Abdomen is soft. Tenderness: There is no abdominal tenderness. Musculoskeletal: General: No swelling. Normal range of motion. Cervical back: Normal range of motion and neck supple. Skin: General: Skin is warm and dry. Capillary Refill: Capillary refill takes less than 2 seconds. Neurological: Mental Status: She is alert and oriented to person, place, and time. Psychiatric: Mood and Affect: Mood normal. Behavior: Behavior normal. Buzz Coma Scale Score: 15 HEART Score: 3 ED Course & MDM - PIT Attestation: Date/Time: 10/06/2024/9:50 AM Entered by Drea Cook, acting as scribe for Maldonado Centeno MD. Scribe Attestation: This note was dictated to me, Drea Cook, acting as a scribe for Maldonado Hernandez MD. Attending Attestation: The documentation was recorded by Drea Cook acting as scribe in my presence at the time of the encounter and accurately reflects the service I personally performed. Assessment: 49 y.o. female presents to ED with complaint of chest pain. It should be noted that the chronic conditions includes HFrEF, GERD with dysmotility, scleroderma, which currently is not at goal therapy. This complicates the clinical picture because it Comorbidities: may be exacerbating symptoms Differential Diagnosis: Differential diagnosis includes but is not limited to acute coronary syndrome, SCAD, aortic dissection, pericarditis, pulmonary embolism, pneumothorax, pneumonia, gastroesophageal reflux, esophageal rupture, costochondritis, pancreatitis, and referred pain. In order to fully explore the differential diagnosis the following treatments and tests were ordered: ED Medication Administration from 10/06/2024 0933 to 10/06/2024 1604 Date/Time Order Dose Route Action 10/06/2024 1017 EDT aspirin chewable tablet 324 mg 324 mg Oral Given 10/06/2024 1125 EDT ketorolac (Toradol) injection 15 mg 15 mg Intravenous Given All Other Orders Ordered Status Ordering Provider 10/06/24 1028 Troponin T, High Sensitivity, 2 Hour, Plasma PROCEDURE ONCE Final result MALDONADO SNELL 10/06/24 1105 ECG Adult Once Preliminary result COURTNEY MCGHEE 10/06/24 0956 CMP STAT Final result MALDONADO SNELL 10/06/24 0956 Lipase STAT Final result MALDONADO SNELL 10/06/24 0956 CBC w/diff STAT Final result MALDONADO SNELL 10/06/24 0956 XR Chest 1 View One time imaging Final result MALDONADO SNELL 10/06/24 0956 Hepatitis C Antibody - ED Once Final result MALDONADO SNELL 10/06/24 0956 ED Protocol - HIV 1/2 Antibody/Antigen Screen Once Final result MALDONADO SNELL 10/06/24 0956 ED HIV 1/2 Antibody/Antigen Screen w/Reflex to HIV 1/2 Differentiation PROCEDURE ONCE Final result MALDONADO SNELL 10/06/24 0956 Troponin now and 120 min STAT Final result MALDONADO SNELL 10/06/24 0939 EKG now - STAT (adult) Once Preliminary result MALDONADO SNELL ED Course as of 10/06/24 1604 Sat Oct 06, 2024 1122 Nursing messages to say pt now having current chest pain. EKG repeated and without dynamic changes, interpreted by attending. Pt reassessed and states the pain is under her ribs. States it is constant. Notes this is the same pain she mentioned to cardiology during her recent visit. Denies any associated symptoms such as nausea, dizziness, diaphoresis and otherwise states she feels hungry [AW] ED Course User Index [AW] Courtney Mcghee PA Clinical Impressions as of 10/06/24 1604 Chest wall pain Patient had total resolution of pain after toradol. All results discussed with the patient. Encouraged cardiology and GI follow up to discuss today's ER visit. Ultimately, this patient was Was discharged Home (Discharge) The encounter diagnosis was Chest wall pain. . Patient was counseled on the diagnoses. Discharge medications if any are listed below. Listed medications are thought be either curative forlisted diagnoses or will help control ongoing symptoms. Patient is requested to follow up with Patient's Primary Care Provider in order to obtain specialty care and further diagnostic testing. Instructions on follow up as well as precautions to return to the ER provided verbally by the EM provider,as well as written in patients discharge education packet. ED Prescriptions Medication Sig Dispense Start Date End Date Auth. Provider cyclobenzaprine (Flexeril) 5 MG tablet Take 1 tablet by mouth 3 times a day for 5 days. 15 tablet 10/06/2024 10/11/2024 Courtney Mcghee PA Discharge Instructions Return to ER for worsening pain, pain associated with shortness of breath, numbness or tingling in the face or extremities, pain associated with nausea or vomiting, or otherwise as needed Disposition Discharge AVS ([place] Snapshot) - Printed 10/06/2024 Follow-Ups: Follow up with Sara Johnson APRN ([facility]) - [1] Past Medical History: Diagnosis Date Anemia Anxiety Osteoarthritis [2] Past Surgical History: Procedure Laterality Date BREAST BIOPSY Left 7 years ago-benign results SECTION, CLASSIC 1998 CHOLECYSTECTOMY HIATAL HERNIA REPAIR HYSTERECTOMY PA BREAST AUGMENTATION WITH IMPLANT [3] Family History Problem Relation Name Age of Onset Breast cancer Maternal Grandmother Breast cancer Mother's Sister [4] Tobacco Use Smoking status: Never Smokeless tobacco: Never Substance Use Topics Alcohol use: Yes Alcohol/week: 2.0 standard drinks of alcohol Types: 2 Glasses of wine per week Drug use: Never [5] Allergies Allergen Reactions Lamotrigine Hives and Palpitations Levofloxacin Nausea, Other - please document in the comment field, Palpitations and Vomiting [place] Other - please document in the comment field Swollen neck Courtney Mcghee PA 10/06/24 1606 Cosigned by Maldonado Snell MD at 10/11/2024 1:58 PM EDT Associated attestation - Maldonado Snell MD - 10/11/2024 1:58 PM EDT I attest to being involved in providing substantive part of the medical decision making in patient care. * ED Triage Notes - Negin Johnston RN - 10/06/2024 9:33 AM EDT Pt presents for 2 episodes of left sided chest pain that radiates to the back since this morning. documented in this encounter Plan of Treatment Upcoming Encounters Date Type Department Care Team (Late st Contact Info) Description 10/26/2024 10:10 AM EDT Consult [facility] [address] [place] [address], [address] [place] [address] 11/20/2024 10:00 AM EDT Office Visit [facility] [place] [address] [facility], [address] [place] [address] Sara Johnson APRN [address] [place] [address] 01/08/2025 4:00 PM EST Office Visit [facility] [address] [address] [facility] [address] [facility], [address] [place] [address] Mitul Garza MD [address] [place] [address] 02/19/2025 9:00 AM EST Ancillary Procedure [facility] [address] [place] [address] 02/19/2025 10:00 AM EST Office Visit [facility] [address], [address] [place] [address] Mariam Urban MD [address] [place] [address] documented as of this encounter Goals Goal Patient Goal Type Associated Problems Recent Progress Patient-Stated? Author Patient will verbalize understanding of orthotic wear , care and precautions. Occupational Therapy No Pat Bueno documented as of this encounter Procedures Procedure Name Priority Date/Time Associated Diagnosis Comments TROPONIN T, HIGH SENSITIVITY, 2 HOUR, PLASMA Timed 10/06/2024 12:05 PM EDT ECG ADULT STAT 10/06/2024 11:09 AM EDT XR CHEST 1 VIEW STAT 10/06/2024 10:50 AM EDT ED HIV 1/2 ANTIBODY/ANTIGEN SCREEN WITH REFLEX TO HIV I/II DIFFERENTIATION STAT 10/06/2024 10:03 AM EDT ED PROTOCOL HIV 1/2 ANTIBODY/ANTIGEN SCREEN W/REFLEX TO HIV 1/2 ANTIBODY DIFFERENTIATION STAT 10/06/2024 10:03 AM EDT TROPONIN T, HIGH SENSITIVITY, 0 HOUR, PLASMA, REFLEX TO 2 HOUR STAT 10/06/2024 10:03 AM EDT HEPATITIS C ANTIBODY - ED W/REFLEX TO HCV QUANT PCR STAT 10/06/2024 10:03 AM EDT CBC WITH AUTO DIFFERENTIAL STAT 10/06/2024 10:03 AM EDT LIPASE, PLASMA STAT 10/06/2024 10:03 AM EDT COMPREHENSIVE METABOLIC PANEL, PLASMA STAT 10/06/2024 10:03 AM EDT ECG ADULT STAT 10/06/2024 9:41 AM EDT documented in this encounter Results * Troponin T, High Sensitivity, 2 Hour, Plasma (10/06/2024 12:05 PM EDT) Troponin T, High Sensitivity, 2 Hour <6 <14 ng/L 10/06/2024 12:43 PM EDT [facility] Blood Venous blood specimen / Unknown Venipuncture / Unknown 10/06/2024 12:05 PM EDT 10/06/2024 12:23 PM EDT us Maldonado Snell MD LAB BLOOD ORDERABLES Final Result [facility] [address] [place] [address] * ECG Adult (10/06/2024 11:09 AM EDT) EKG DIAGNOSIS CLASS Abnormal MUSE ECG Ventricular Rate 72 BPM MUSE ECG Atrial Rate 72 BPM MUSE ECG PA Interval 194 ms MUSE ECG QRSD Interval 160 ms MUSE ECG QT Interval 498 ms MUSE ECG QTC Interval 545 ms MUSE ECG P [place] 63 degrees MUSE ECG R [place] 127 degrees MUSE ECG T Wave [place] 26 degrees MUSE ECG Diagnosis Normal sinus rhythm MUSE ECG Diagnosis Right axis deviation MUSE ECG Diagnosis Lateral infarct , age undetermined MUSE ECG Diagnosis Nonspecific intraventricular block MUSE ECG Diagnosis Abnormal ECG MUSE ECG Diagnosis MUSE ECG Diagnosis Compared to last ECG MUSE ECG Diagnosis No significant change was found MUSE ECG Diagnosis Confirmed by Boaz Pisano ([id number]) on 10/07/2024 1:04:12 PM MUSE ECG 10/06/2024 11:0 9 AM EDT 10/07/2024 1:04 PM EDT us Courtney MELGAR ECG ORDERABLES Final Res ult MUSE ECG * XR Chest 1 View (10/06/2024 10:50 AM EDT) Anatomical Region Laterality Modality Chest Digital Radiogra phy Impressions 10/06/2024 11:03 AM EDT No acute findings CRITICAL RESULT: No. COMMUNICATION: Per this written report. Drafted by Zakiya Liz MD on 10/06/2024 11:03 AM Final report signed by Zakiya Liz MD on 10/06/2024 11:03 AM Narrative 10/06/2024 11:03 AM EDT CLINICAL INDICATION: chest pain TECHNIQUE: XR CHEST 1 VIEW COMPARISON: None. FINDINGS: Lungs are clear. Heart and mediastinal contours are within normal limits. No pneumothorax. No pleural effusion. Bony structures are unremarkable. Procedure Note Zakiya Liz MD - 10/06/2024 CLINICAL INDICATION: chest pain TECHNIQUE: XR CHEST 1 VIEW COMPARISON: None. FINDINGS: Lungs are clear. Heart and mediastinal contours are within normal limits.No pneumothorax. No pleural effusion. Bony structures are unremarkable. IMPRESSION: No acute findings CRITICAL RESULT: No. COMMUNICATION: Per this written report. Drafted by Zakiya Liz MD on 10/06/2024 11:03 AM Final report signed by Zakiya Liz MD on 10/06/2024 11:03 AM Maldonado Snell MD IMG XR PROCEDURES Final Res ult * ED HIV 1/2 Antibody/Antigen Screen w/Reflex to HIV 1/2 Differentiation (10/06/2024 10:03 AM EDT) [facility] HIV 1 & 2 Antibody/Antigen Screen Non Reactive Non Reactive 10/06/2024 11:02 AM EDT [facility] Comment:Screening for HIV 1 & 2 antibodies, and P24 antigen is NONREACTIVE. No confirmatory testing is required. Blood Venous blood specimen / Unknown Venipuncture / Unknown 10/06/2024 10:03 AM EDT 10/06/2024 10:23 AM EDT Maldonado Snell MD LAB BLOOD ORDERABLES Final Result [facility] [address] [place] [address] * Hepatitis C Antibody - ED (10/06/2024 10:03 AM EDT) Pathologist [facility] Hepatitis C Antibody Negative Negative 10/06/2024 11:04 AM EDT [facility] Blood Venous blood specimen / Unknown Venipuncture / Unknown 10/06/2024 10:03 AM EDT 10/06/2024 10:23 AM EDT us Maldonado Snell MD LAB BLOOD ORDERABLES Final Result [facility] [address] [place] [address] * (ABNORMAL) CBC w/diff (10/06/2024 10:03 AM EDT) WBC Count 5.99 3.70 - 10.30 10*3/uL LAB HEMATOLOGY METHOD 10/06/2024 10:09 AM EDT [facility] RBC Count 3.72(L) 3.90 - 5.20 10*6/uL LAB HEMATOLOGY METHOD 10/06/2024 10:09 AM EDT [facility] HGB 11.3 11.2 - 15.7 g/dL LAB HEMATOLOGY METHOD 10/06/2024 10:09 AM EDT [facility] HCT 34.6 34.0 - 45.0 % LAB HEMATOLOGY METHOD 10/06/2024 10:09 AM EDT [facility] Platelet Count 238 155 - 369 10*3/uL LAB HEMATOLOGY METHOD 10/06/2024 10:09 AM EDT [facility] MCV 93 79 - 98 fL LAB HEMATOLOGY METHOD 10/06/2024 10:09 AM EDT [facility] MCH 30.4 26.0 - 32.0 pg LAB HEMATOLOGY METHOD 10/06/2024 10:09 AM EDT [facility] MCHC 32.7 30.7 - 35.5 g/dL LAB HEMATOLOGY METHOD 10/06/2024 10:09 AM EDT [facility] RDW 13.3 11.5 - 14.5 % LAB HEMATOLOGY METHOD 10/06/2024 10:09 AM EDT [facility] MPV 9.8 8.8 - 12.5 fL LAB HEMATOLOGY METHOD 10/06/2024 10:09 AM EDT [facility] nRBC 0.0 <=0.0 per 100 WBCs LAB HEMATOLOGY METHOD 10/06/2024 10:09 AM EDT [facility] Differential Type Automated LAB HEMATOLOGY METHOD 10/06/2024 10:09 AM EDT [facility] Neutrophils % 49 % LAB HEMATOLOGY METHOD 10/06/2024 10:09 AM EDT [facility] Lymphocytes % 38 % LAB HEMATOLOGY METHOD 10/06/2024 10:09 AM EDT [facility] Monocytes % 8 % LAB HEMATOLOGY METHOD 10/06/2024 10:09 AM EDT [facility] Eosinophils % 4 % LAB HEMATOLOGY METHOD 10/06/2024 10:09 AM EDT [facility] Basophils % 1 % LAB HEMATOLOGY METHOD 10/06/2024 10:09 AM EDT [facility] Immature Granulocytes % 0 % LAB HEMATOLOGY METHOD 10/06/2024 10:09 AM EDT [facility] Neutrophils Absolute 2.95 1.60 - 6.10 10*3/uL LAB HEMATOLOGY METHOD 10/06/2024 10:09 AM EDT [facility] Lymphocytes Absolute 2.28 1.20 - 3.90 10*3/uL LAB HEMATOLOGY METHOD 10/06/2024 10:09 AM EDT [facility] Monocytes Absolute 0.45 0.30 - 0.90 10*3/uL LAB HEMATOLOGY METHOD 10/06/2024 10:09 AM EDT [facility] Eosinophils Absolute 0.26 0.00 - 0.50 10*3/uL LAB HEMATOLOGY METHOD 10/06/2024 10:09 AM EDT [facility] Basophils Absolute 0.04 0.00 - 0.10 10*3/uL LAB HEMATOLOGY METHOD 10/06/2024 10:09 AM EDT [facility] Immature Granulocytes Absolute 0.01 0.00 - 0.06 10*3/uL LAB HEMATOLOGY METHOD 10/06/2024 10:09 AM EDT [facility] Blood Venous blood specimen / Unknown Venipuncture / Unknown 10/06/2024 10:03 AM EDT 10/06/2024 10:07 AM EDT [facility] LAB - 10/06/2024 10:09 AM EDT Therapeutic decision making should be based on absolute values, rather than percentages. us Maldonado Snell MD LAB BLOOD ORDERABLES Final Result [facility] [address] [place] [address] * Lipase (10/06/2024 10:03 AM EDT) Lipase, Plasma 26 19 - 63 U/L 10/06/2024 10:28 AM EDT [facility] Blood Venous blood specimen / Unknown Venipuncture / Unknown 10/06/2024 10:03 AM EDT 10/06/2024 10:07 AM EDT Maldonado Snell MD LAB BLOOD ORDERABLES Final Result Performing Organization Address City/[facility]/ZIP Co de Phone Number [facility] [address] [place] [address] * CMP (10/06/2024 10:03 AM EDT) Glucose, Plasma 88 74 - 99 mg/dL 10/06/2024 10:28 AM EDT [facility] BUN, Plasma 10 7 - 21 mg/dL 10/06/2024 10:28 AM EDT [facility] Creatinine, Plasma 0.92 0.60 - 1.10 mg/dL 10/06/2024 10:28 AM EDT [facility] BUN/Creatinine Ratio 11 10/06/2024 10:28 AM EDT [facility] Sodium, Plasma 140 136 - 145 mmol/L 10/06/2024 10:28 AM EDT [facility] Potassium, Plasma 4.0 3.6 - 4.9 mmol/L 10/06/2024 10:28 AM EDT [facility] Chloride, Plasma 104 97 - 107 mmol/L 10/06/2024 10:28 AM EDT [facility] CO2, Plasma 26 22 - 29 mmol/L 10/06/2024 10:28 AM EDT [facility] Anion Gap 10 6 - 16 mmol/L 10/06/2024 10:28 AM EDT [facility] Total Calcium, Plasma 9.2 8.9 - 10.2 mg/dL 10/06/2024 10:28 AM EDT [facility] Total Protein 6.7 6.3 - 7.9 g/dL 10/06/2024 10:28 AM EDT [facility] Albumin, Plasma 4.0 3.5 - 5.2 g/dL 10/06/2024 10:28 AM EDT [facility] AST, Plasma 27 10 - 35 U/L 10/06/2024 10:28 AM EDT [facility] ALT, Plasma 21 10 - 35 U/L 10/06/2024 10:28 AM EDT [facility] Alkaline Phosphatase, Plasma 89 35 - 104 U/L 10/06/2024 10:28 AM EDT [facility] Total Bilirubin, Plasma 0.2 0.2 - 1.1 mg/dL 10/06/2024 10:28 AM EDT [facility] eGFRcr 75.5 mL/min/1.7 3m*2 10/06/2024 10:28 AM EDT [facility] Comment:Reported eGFRcr in m L/min/1.73m2 is based the CKD-EPI 2020 equation that does not use a race coefficient. Blood Venous blood specimen / Unknown Venipuncture / Unknown 10/06/2024 10:03 AM EDT 10/06/2024 10:07 AM EDT Maldonado Snell MD LAB BLOOD ORDERABLES Final Result [facility] [address] [place] [address] * Troponin now and 120 min (10/06/2024 10:03 AM EDT) Troponin T, High Sensitivity, 0 Hour <6 <14 ng/L 10/06/2024 10:28 AM EDT [facility] Blood Venous blood specimen / Unknown Venipuncture / Unknown 10/06/2024 10:03 AM EDT 10/06/2024 10:07 AM EDT Maldonado Snell MD LAB BLOOD ORDERABLES Final Result [facility] [address] [place] [address] * EKG now - STAT (adult) (10/06/2024 9:41 AM EDT) EKG DIAGNOSIS CLASS Abnormal MUSE ECG Ventricular Rate 88 BPM MUSE ECG Atrial Rate 88 BPM MUSE ECG PA Interval 182 ms MUSE ECG QRSD Interval 158 ms MUSE ECG QT Interval 460 ms MUSE ECG QTC Interval 556 ms MUSE ECG P [place] 57 degrees MUSE ECG R [place] 185 degrees MUSE ECG T Wave [place] 30 degrees MUSE ECG Diagnosis Normal sinus rhythm MUSE ECG Diagnosis Nonspecific intraventricular block MUSE ECG Diagnosis Possible Lateral infarct , age undetermined MUSE ECG Diagnosis Abnormal ECG MUSE ECG Diagnosis MUSE ECG Diagnosis Confirmed by Jorge Luis Castellanos ([id number]) on 10/06/2024 10:43:53 PM MUSE ECG 10/06/2024 9:41 AM EDT 10/06/2024 10:43 PM EDT us Maldonado Snell MD ECG ORDERABLES Final Resul t MUSE ECG documented in this encounter Visit Diagnoses Diagnosis Chest wall pain- Primary Painful respiration documented in this encounter Administered Medications Inactive Administered Medications - up to 3 most recent administrations Medication Order MAR Action Action Date Dose Rate Site aspirin chewable tablet 324 mg 324 mg, Oral, Once, 1 dose, On 10/06/24 at 1000, STAT Given 10/06/2024 10:17 AM EDT 324 mg ketorolac (Toradol) injection 15 mg 15 mg, Intravenous, Once, 1 dose, On 10/06/24 at 1125, STAT Given 10/06/2024 11:25 AM EDT 15 mg documented in this encounter Active and Recently Administered Medications Times are shown in EDT. Scheduled Medication Order 10/04/2024 10/05/2024 10/06/2024 aspirin chewable tablet 324 mg (COMPLETED) 324 mg, Oral, Once, 1 dose, On 10/06/24 at 1000, STAT 1017 (Given - Provid er: Kimberly Guaman RN) ketorolac (Toradol) injection 15 mg (COMPLETED) 15 mg, Intravenous, Once, 1 dose, On 10/06/24 at 1125, STAT 1125 (Given - Provid er: Kimberly Guaman RN) documented in this encounter Additional Health Concerns Assessment Noted Time PHQ-9 Depression Total Score: 0 09/28/19 3:19 PM EDT A fall risk assessment has been complete d for the patient 09/27/2024 3:19 PM EDT A Body Mass Index follow-up plan has been documented for the patient 09/29/2024 4:22 PM EDT documented as of this encounter Care Teams Chiropractic Doctor Relationship Specialty Start Date End Date Bill Lamar MD [address] [place] [address] PCP - General 04/13/22 documented as of this encounter
--- OUTSIDE RECORDS SUMMARY | 2024-10-16 10:00 | XMS_ITS | Encounter Summary ---
Author Organization Healthcare Address [address] [id number] Care Team Providers Care Gritting Machine Operator Name Role Phone Bill Lamar MD Primary Care Provider Encounter Details Date Type Department Care Team ([facility] st Contact Info) Description 10/16/2024 10:00 AM EDT Office Visit [facility] [place] [address] [facility] [facility], [address] [place] [address] Sara Johnson, DEVELOPMENT SPEC [address] [place] [address] HFrEF (heart failure with reduced ejection fraction) (CMS/HCC) (Primary Dx); Iron deficiency anemia, unspecified iron deficiency anemia type; NICM (nonischemic cardiomyopathy) (CMS/HCC); Bradycardia Social History Tobacco Use Types Packs/Day [...] drink first t cyndie in the morning (EYE-NUT PACKER) to steady your nerves or to get [...] as of this encounter Miscellaneous Notes * Progress Notes - Sara Johnson, DEVELOPMENT SPEC - 10/16/2024 10:00 AM EDT Images from the original note were not included. Advanced Heart Failure Follow Up Patient Verification Patient identity has been confirmed using name and date of ? Yes Authorizations and Agreements/Telemedicine Consent sent and consent confirmed? Yes Patient Location: Patient's Home Patient confirms they are physically located in [place]? Yes Provider Location: Provider's Home Audio and video or audio only? Audio and video Audio only due to N/A Melinda Campbell Fadi is a 49 y.o. female who presents for medication optimization. Prior Cardiac and Medical History/History of Present [...] 08/2024, she had an echo done at [facility] which noted LV systolic dysfunction with increased [...] showed LVEF 40%, hypokinetic septal and inferoseptal mccatrhy with no LGE. She had no episodes of bradycardia on her zio monitor done in 07/2024. She was felt to not warrant apacemaker at this time by Dr. Faraz Laurent ([facility]). She states that she continues to get HRreadings in the 40's on her fit bit associated with dizziness. She was having discussion with her local dish washer in [place] on whether she should get a loop recorder placed. 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 With regards to GDMT up-titration, she had constipation and headaches with higher doses of entresto.She has also had restless legs with spironolactone. She recently had a CT chest done at [facility] which showed multiple tiny lung nodules. She says these nodules were not noted before. However, it appears that a second opinion read ofthe same CT done at [facility] noted that this was not significantly changed from prior exams there. Interval history: At the last OV, Entresto was increased to 49/51 mg BID. Since this change, she has not been feelingwell. BPs are running 100s/70s, but has seen SBP drop to the 80s. This causes her to feel dizzy. She was seen in the ER last week for chest pain. Work up was negative for ACS. She continues to feel short of breath with walking. She walks less than a mile around her neighborhood at a slow paces, usually 2-3 times per week. Palpitations have improved. HR is running 80-90s, with occasional dips intothe 40s according to her fit bit. She turned her patch monitor in last week. Denies swelling. Weight has been stable. Review of symptoms 14 Point ROS reviewed and is otherwise negative except as per HPI. Past Medical History Past Medical History[1] Surgical History Surgical History[2] Family History family history includes Breast cancer in her maternal grandmother and mother's sister. Social History reports that she has never smoked. She has never used smokeless tobacco. She reports current alcohol use of about 2.0 standard drinks of alcohol per week. She reports that she does not use drugs. Medications Current Medications[3] Physical Exam Constitutional: Appearance: Normal appearance. Neurological: Mental Status: Alert and oriented to person, place, and time. Psychiatric: Mood and Affect: Mood normal. Behavior: Behavior normal. DIAGNOSTIC STUDIES - EKG (09/27/24): Normal sinus [...] study available for comparison. Cardiac catheterizations - R/[facility] (09/16/2023) 1)No angiographic CAD 2)LVEF=50-55% with no regional wall motion abnormalities 3)No significant gradient across Aortic Valve 4)LVEDP=16-17 mmHg 5)RHC data: -RA=14 mmHg -RV=34/8 mmHg -PA=29/17 mmHg (mean=22 mmHg) -PCWP=15-17 mmHg 6)U/s-guided RFA & RFV access 7)6F Mynx closure device placed in RFA. Recommendations 1)F/u with local certified income tax preparer in 1-2 weeks for reassessment 2)F/u with [...] indicating she does not have the condition. [id number]: c.424G>T, p.[id number] Testing also identified a variant of uncertain significance in MYBPC3: c.2980C>T, p.[id number] Cardiomyopathy is associated with MYBPC3. 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 [employer] currently classifies the evidence in association with DCM as limited. Labs Lab Results Component Value Date HGB 11.3 10/06/2024 HCT 34.6 10/06/2024 PLT 238 10/06/2024 ALT 21 10/06/2024 AST 27 10/06/2024 NA 140 10/06/2024 K 4.0 10/06/2024 CREATININE 0.92 10/06/2024 BUN 10 10/06/2024 CO2 26 10/06/2024 HGBA1C 5.60 12/19/2017 BNP 238 09/27/2024 Assessment and Plan HFrEF s/t NICM -NYHA Class III -EF 35-40% per echo 08/2024 -GDMT: jardiance 10 mg daily, entresto 49/51 mg BID, coreg 3.125 mg BID -Decrease Entresto back to 24/ mg BID d/t hypotension/dizziness -Start eplerenone 25 mg daily -BMP in 1 week, faxed to [facility] -Cardiac MRI pending for reevaluation of cardiac function and ?presence of LGE to suggest cardiac sarcoidosis. Bradycardia -HR in the 40s noted on her fit bit -Patch monitor results pending A total time of 30 minutes was spent addressing the current illness, reviewing records (prior imaging, lab work, etc), and formulating a plan. The patient is agreeable to the plan and all pertinent questions were answered. Follow up in 1 month Sara Johnson, CAROLE 10/16/24 [1] Past Medical History: Diagnosis Date Anemia Anxiety Osteoarthritis [2] Past Surgical History: Procedure Laterality Date BREAST BIOPSY Left 7 years ago-benign results SECTION, CLASSIC 1998 CHOLECYSTECTOMY HIATAL HERNIA REPAIR HYSTERECTOMY IA BREAST AUGMENTATION WITH IMPLANT [3] Current Outpatient Medications Medication Sig Dispense Refill acetaminophen (Tylenol) 500 MG tablet Take 2 tablets by mouth every 6 hours as needed. carvedilol (Coreg) 3.125 MG tablet Take 1 tablet by mouth 2 times a day. colchicine (Colcrys) 0.6 MG tablet empagliflozin (Jardiance) 10 MG Take 1 tablet by mouth 1 time each day. estradiol (Vivelle-DOT) 0.025 MG/24HR estradiol 2MG [...] mouth every 8 (eight) hours if needed. sacubitril-valsartan (Entresto) 49-51 MG tablet Take 1 tablet by mouth 2 times a day. 60 tablet 5 Voquezna 20 MG tablet Take 1 tablet by mouth 1 time each day. No current facility-administered medications for this visit. documented in this encounter Plan of Treatment Upcoming Encounters Date Type Department Care Team (Late st Contact Info) Description 10/26/2024 10:10 AM EDT Consult [facility] Medicine Specialties [address] [place] [address], [address] [place] [address] 11/20/2024 10:00 AM EDT Office Visit [facility] [place] [address] [facility], [address] [place] [address] Sara Johnson APRN [address] [place] [address] 01/08/2025 4:00 PM EST Office Visit [facility] [place] [address] [facility] [facility], [address] [place] [address] Mitul Garza MD [address] [place] [address] 02/19/2025 9:00 AM EST Ancillary Procedure [facility] Medicine [address], [address] [place] [address] 02/19/2025 10:00 AM EST Office Visit [facility] [address], [address] [place] [address] Mariam Urban MD [address] [place] [address] Scheduled Orders Name Type Priority Associated Diagnoses Orde r Schedule Basic Metabolic Panel, Plasma Lab Routine HFrEF (heart failure with reduced ejection fraction) ([facility]) Expected: 10/23/2024 (Approximate), Expires: 10/16/2025 documented as of this encounter Goals Goal Patient Goal Type Associated Problems Recent Progress Patient-Stated? Author Patient will verbalize understanding of orthotic wear , care and precautions. Occupational Therapy No Pta Bueno documented as of this encounter Visit Diagnoses Diagnosis HFrEF (heart failure with reduced ejection fraction) ([facility])- Primary Iron deficiency anemia, unspecified iron deficiency anemia type NICM (nonischemic cardiomyopathy) ([facility]) Bradycardia Other specified cardiac dysrhythmias documented in this encounter Additional Health Concerns Assessment Noted Time PHQ-9 Depression Total Score: 0 09/28/19 25 3:19 PM EDT A fall risk assessment has been complete d for the patient 09/27/2024 3:19 PM EDT A Body Mass Index follow-up plan has been documented for the patient 10/16/2024 1:46 PM EDT documented as of this encounter Care Teams Gritting Machine Operator Relationship Specialty Start Date End Date Bill Lamar MD [address] [facility] [place] [address] PCP - General 04/13/22 documented as of this encounter
--- OUTSIDE RECORDS SUMMARY | 2024-10-18 11:27 | XMS_ITS | Encounter Summary ---
Author Organization [facility] Address [address] [id number] Care Team Providers Care Vice President Corporate Communications Name Role Phone Bill Lamar MD Primary Care Provider [phone] Reason for Referral * Imaging (Routine) - Closed Specialty Diagnoses / Procedures Referred By Wander aragon Referred To Contact Radiology Diagnoses Chronic heart failure, unspecified heart failure type (CMS/HCC) Bradycardia Procedures MR Cardiac Morphology and Function W Velocity Flow Mapping W and WO Contrast Mitul Garza MD [address] [place] [address] Phone: tel: fax: Referral ID Status Reason Start Date Expiration Date Visits Re quested Visits Authorized [id number] Closed 09/29/2024 03/31/2026 1 1 Reason for Visit * Imaging (Routine) - Closed Specialty Diagnoses / Procedures Referred By Wander aragon Referred To Contact Radiology Diagnoses Chronic heart failure, unspecified heart failure type (CMS/HCC) Bradycardia Procedures MR Cardiac Morphology and Function W Velocity Flow Mapping W and WO Contrast Mitul Garza MD [address] [place] [address] Phone: tel: fax: Referral ID Status Reason Start Date Expiration Date Visits Re quested Visits Authorized [id number] Closed 09/29/2024 03/31/2026 1 1 Encounter Details Date Type Department Care Team (Latest Contact Info) Description 10/18/2024 11:27 AM EDT - 10/18/2024 11:59 PM EDT Hospital Encounter [facility] [address] [place] [address] Chronic heart failure, unspecified heart failure type (CMS/HCC); Bradycardia Discharge Disposition: Home or Self Care [...] drink first t cyndie in the morning (EYE-MOTORCYLES FINAL INSPECTOR) to steady your nerves or to get [...] on file documented as of this encounter Medications at Time of Discharge acetaminophen (Tylenol) 500 MG tablet Take 2 tablets by mouth every 6 hours as needed. carvedilol (Coreg) 3.125 MG tablet Take 1 tablet by mouth 2 times a day. colchicine (Colcrys) 0.6 MG tablet empagliflozin (Jardiance) 10 MG Take 1 tablet by mouth 1 time each day. 02/06/2024 eplerenone (Inspra) 25 MG tablet Take 1 tablet by mouth daily. 30 tablet 5 10/16/2024 estradiol (Vivelle-DOT) 0.025 MG/24HR estradiol 2MG DAILY [...] every 8 (eight) hours if needed. 09/26/2023 sacubitril-valsa rtan (Entresto) 24-26 MG tablet Take 1 tablet by mouth 2 times a day. 60 tablet 5 10/16/2024 Voquezna 20 MG tablet Take 1 tablet by mouth 1 time each day. 08/22/2024 documented as of this encounter Plan of Treatment Upcoming Encounters Date Type Department Care Team (Late st Contact Info) Description 10/26/2024 10:10 AM EDT Consult [facility] Specialties [address], [address] [place] [address] 11/20/2024 10:00 AM EDT Office Visit [facility] [place] [address] [facility] [facility], [address] [place] [address] Sara Johnson APRN [address] [place] [address] 01/08/2025 4:00 PM EST Office Visit [facility] [place] [address] [facility] [facility], [address] [place] [address] Mitul Garza MD [address] [place] [address] 02/19/2025 9:00 AM EST Ancillary Procedure [facility] Medicine Specialties [address], [address] [place] [address] 02/19/2025 10:00 AM EST Office Visit [facility] [address], [address] [place] [address] Mariam Urban MD [address] [place] [address] documented as of this encounter Goals Goal Patient Goal Type Associated Problems Recent Progress Patient-Stated? Author Patient will verbalize understanding of orthotic wear , care and precautions. Occupational Therapy No Pat Bueno documented as of this encounter Procedures Procedure Name Priority Date/Time Associated Diagnosis Comments MR CARDIAC MORPHOLOGY AND FUNCTION W RADHA FLOW MAPPING W AND WO CONTRAST Routine 10/18/2024 1:03 PM EDT Chronic heart failure, unspecified heart failure type (CMS/HCC) Bradycardia HEMATOCRIT, BLOOD STAT 10/18/2024 11: 49 AM EDT documented in this encounter Results * MR [...] enhancement. Normal T2 mapping as well as [place] T1 mapping and ECV is not suggestive [...] --- Quantitative Measurements --- (normal values, reference: hCaya Lucas, et al. J Cardiovasc Magn Reson. 2020;22:87) [...] --- Tissue Characterization --- T1 Mapping: Myocardial [place] T1: 1192ms Blood pool [place] T1: 1657ms Myocardial post contrast T1: 415ms [...] Quantitative Measurements --- (normal values, reference: Chaya Lucas, et al. J Cardiovasc Magn Reson.2020;22:87) LVEF: [...] --- Tissue Characterization --- T1 Mapping: Myocardial [place] T1: 1192ms Blood pool [place] T1: 1657ms Myocardial post contrast T1: 415ms [...] enhancement. Normal T2 mapping as well as [place] T1 mapping andECV is not suggestive of [...] signing this report, I, the attending physician, brandyn I have personally reviewed the images/data for the aboveexamination(s) and agree with the final edited report. Drafted by Oral Palmer on 10/18/2024 1:11 PM Final report signed by Quinten Nolasco MD on 10/18/2024 4:46 PM us Mitul Garza MD IMG MRI PROCEDURES Final Resul t * Hematocrit, Blood (10/18/2024 11:49 AM EDT) HCT 34.1 34.0 - 45.0 % LAB HEMATOLOGY METHOD 10/18/2024 12:36 PM EDT [facility] Blood Venous blood specimen / Unknown Venipuncture / Unknown 10/18/2024 11:49 AM EDT 10/18/2024 12:26 PM EDT us Oral Palmer DO LAB BLOOD ORDERABLES Final Result [facility] [address] [place] [address] documented in this encounter Visit Diagnoses Diagnosis Chronic heart failure, unspecified heart failure type (CMS/HCC) Bradycardia Other specified cardiac dysrhythmias documented in this encounter Administered Medications Inactive Administered Medications - up to 3 most recent administrations Medication Order MAR Action Action Date Dose Rate Site gadobutrol (Gadavist) injection 12.3 mL 12.3 mL (0.15 mL/kg 82 kg), Intravenous, Once in imaging, 1 dose, Starting on Jazlyn 10/18/24 at 1206, Until Jazlyn 10/18/24 at 1240, Routine, Imaging Protocol Orders Given 10/18/2024 12:40 PM EDT 12.3 mL documented in this encounter Additional Health Concerns Assessment Noted Time PHQ-9 Depression Total Score: 0 09/28/19 3:19 PM EDT A fall risk assessment has been complete d for the patient 09/27/2024 3:19 PM EDT A Body Mass Index follow-up plan has been documented for the patient 10/16/2024 1:46 PM EDT documented as of this encounter Care Teams Vice President Corporate Communications Relationship Specialty Start Date End Date Bill Lamar MD [address] [place] [address] PCP - General 04/13/22 documented as of this encounter
[2024-10-23 08:56] VITALS: BMI 34.2
--- OUTSIDE RECORDS SUMMARY | 2024-10-23 12:08 | XMS_ITS | Encounter Summary ---
Author Organization [employer] ([place], [place], [place], [place]) Address [address] [place] [address] Care Team Providers Care Ware Finisher Name Role Phone Unavailable Primary Care Provider Unavailabl e Encounter Details Date Type Department Care Team (Late st Contact Info) Description 03/26/2021 Transcribed Document [facility] [place] [address] [place] [address] ProviderLeyda MD [address] [place], [place] [id number] Social History Tobacco Use Types Packs/Day Years [...] Date Tyrone rded Speak language other than Romanian at home Not on file 03/25/2023 Want [...] - Historical ProviderMD - 03/26/2021 1:42 PM TESTER COMPRESSED GASES [facility] [place] [address] MELINDA APONTE :1975 Visit Time:03/26/2021 What to [...] Comments zoom f/u 1 week Where: [address] [facility] [address] [place] [address]- Business (1) Medications What How Much When Instructions Next Dose acetaminophen-hydrocodone (acetaminophen-HYDROcodone 325 mg-5 mg oral tablet) 1-2 tabs Oral Every 6 Hours as needed for for pain Pickup at [facility] ondansetron (Zofran 4 mg oral tablet) 1 Tablet(s) Oral Every 8 Hours as needed for Nausea Pickup at [facility] estradiol 2 Milligram(s) Oral Every Day magnesium citrate Oral Every Day omeprazole 40 Milligram(s) Oral Every Day Pharmacy Information [facility]: [address] [place], [place] [id number] [phone] Take your medications faithfully. Do NOT skip [...] these instructions at home: Medicines ??? Take ysuu-btd-uvzttlh and prescription medicines only as told by [...] your pee (urine) pale yellow. ? Take audq-oeu-xkfpldq or prescription medicines. ? Eat foods that [...] cannot use soap and water, use hand instructional material director. ? Change your bandage as told by [...] provider. Document Revised: 02/05/2020 Document Reviewed: 02/05/2020 [employer] Patient Education ?? 2020 [employer] Outpatient Surgery, Adult, Care After This [...] children on your own. Medicines ??? Take vawf-poo-hiuqqpl and prescription medicines only as told by [...] keep your urine pale yellow. ? Take dfhg-gui-qzhomen or prescription medicines. ? Eat foods that [...] added (diluted fruit juice). ? Eat bland, luka-kt-gnrpod foods in small amounts as you are [...] and water are not available, use hand instructional material director. ? Change your dressing as told by [...] drink clear fluids slowly and eat bland, nwua-il-gftzbr foods in small amounts. ??? Ask your [...] Assistance with quitting is available by contacting 1-887-BTOTNOW. This is a free resource providing counseling, [...] was given the opportunity to ask questions. Patient/Reconciliation Manager Name: Patient/Reconciliation Manager Signature: Relationship to Patient: Clinician/Hospital Reconciliation Manager Signature: Date: Electronically signed by Interface, [facility] Conversion Butter Wrapper Hali at 06/22/2022 9:27 AM CDT documented in this encounter Plan of Treatment Not on file documented as of this encounter Visit Diagnoses Not on filedocumented in this encounter
--- OUTSIDE RECORDS SUMMARY | 2024-10-23 12:08 | XMS_ITS | Encounter Summary ---
Author Organization Healthcare Address [address] [place] [address] Care Team Providers Care Flexible Machining System Machinist Name Role Phone Bill Lamar MD Primary Care Provider [phone] Encounter Details Date Type Department Care Team (Late st Contact Info) Description 09/28/2024 Orders Only [facility] Medicine Specialties [address] [place] [address] Mariam Urban MD [address] [place] [address] Lung nodules (Primary Dx) Social History Tobacco Use Types Packs/Day Years [...] on file documented as of this encounter Plan of Treatment Upcoming Encounters Date Type Department Care Team (Late st Contact Info) Description 10/26/2024 10:10 AM EDT Consult [facility] Medicine Specialties [address] [place] [address] 11/20/2024 10:00 AM EDT Office Visit [facility] [place] [address], [address] [place] [address] Sara Johnson APRN [address] [place] [address] 01/08/2025 4:00 PM EST Office Visit [facility] [place] [address], [address] [place] [address] Mitul Garza MD [address] [place] [address] 02/19/2025 9:00 AM EST Ancillary Procedure [facility] Medicine [facility] [address] [place] [address] 02/19/2025 10:00 AM EST Office Visit [facility] Medicine [facility] [address], [address] [place] [address] Mariam Urban MD [address] [place] [address] Scheduled Orders Name Type Priority Associated Diagnoses Orde r Schedule Pulmonary function testing PFT Routine Lung nodules Expected: 02/19/2025, Expires: 03/31/2026 documented as of this encounter Goals Goal Patient Goal Type Associated Problems Recent Progress Patient-Stated? Author Patient will verbalize understanding of orthotic wear , care and precautions. Occupational Therapy Pat Oneal documented as of this encounter Visit Diagnoses Diagnosis Lung nodules- Primary Other diseases of lung, not elsewhere classified documented in this encounter Additional Health Concerns Assessment Noted Time PHQ-9 Depression Total Score: 0 09/28/19 3:19 PM EDT A fall risk assessment has been complete d for the patient 09/27/2024 3:19 PM EDT A Body Mass Index follow-up plan has been documented for the patient 09/29/2024 4:22 PM EDT documented as of this encounter Care Teams Flexible Machining System Machinist Relationship Specialty Start Date End Date Bill Lamar MD [address] [facility] [place] [address] PCP - General 04/13/22 documented as of this encounter
--- OUTSIDE RECORDS SUMMARY | 2024-10-23 12:08 | XMS_ITS | Encounter Summary ---
Author Organization [employer] ([place], [place], [place], [place]) Address [address] [place] [address] Care Team Providers Care Crime Scene Investigator Name Role Phone Unavailable Primary Care Provider Unavailabl e Encounter Details Date Type Department Care Team (Late st Contact Info) Description 03/26/2021 Transcribed Document [facility] [place] [address] [place] [address] ProviderLeyda MD [address] [place], [place] [address] Social History Tobacco Use Types Packs/Day Years [...] Date Tyrone rded Speak language other than Malagasy at home Not on file 03/25/2023 Want [...] - Historical ProviderMD - 03/26/2021 11:01 AM PHOTOGRAPHY EDITOR [facility] Main OR PostOp Summary Primary Physician: MARY TOMAS MD-SUR Finalized Date/Time: 03/26/21 14:29:16 Pt. Name: MELINDA APONTE /Sex: 1975 Female Med Rec #: [id number] Physician: MARY TOMAS MD-SUR Financial #: [id number] Pt. Type: O Room/Bed: Admit/Disch: 03/26/21 08:37:00 - Institution: [facility] Main OR PostOp Case Times Entry 1 In PACU II 03/26/21 12:57:00 Ready for PACU II 03/26/21 14:25:00 Discharge Discharge from PACU 03/26/21 14:25:00 II Last Modified By: MARINO BLUM RN 03/26/21 14:29:08 Finalized By: MARINO BLUM, RN Document Signatures Signed By: MARINO BLUM RN 03/26/21 14:29 Electronically signed by Serafin [facility] Conversion Warehouse Incentive Selector Cerner at 06/22/2022 9:26 AM CDT documented in this encounter Plan of Treatment Not on file documented as of this encounter Visit Diagnoses Not on filedocumented in this encounter
--- OUTSIDE RECORDS SUMMARY | 2024-10-23 12:08 | XMS_ITS | Encounter Summary ---
Author Organization [facility] Address [address] [place] [address] Care Team Providers Care Lookback Coordinator Name Role Phone Bill Lamar MD Primary Care Provider [phone] Encounter Details Date Type Department Care Team (Latest Contact Info) Description 09/27/2024 Travel Social History Tobacco Use Types Packs/Day Years [...] much Not at all 09/27/2024 3:19 PM EDT Charmaine Alaniz CNA Feeling tired or having little energy Not at all 09/27/2024 3:19 PM Charmaine Wilson CNA Poor appetite or overeating Not at all 09/27/2024 3: 19 PM EDT Charmaine Alaniz CNA Feeling bad about yourself - or that you are a failure or have let yourself or your family down Not at all 09/27/2024 3:19 PM EDT Charmaine Alaniz CNA Trouble concentrating on things, such as [...] Not difficult at all 09/27/2024 3:19 PM EDCharmaine Torrez CNA documented as of this encounter Plan of Treatment Upcoming Encounters Date Type Department Care Team (Late st Contact Info) Description 10/26/2024 10:10 AM EDT Consult [facility] Medicine Specialties [address] [place] [address] 11/20/2024 10:00 AM EDT Office Visit [facility] [place] [address] [place] [address] Sara Johnson, RESIDENTIAL PROPERTY MANAGER [address] [place] [address] 01/08/2025 4:00 PM EST Office Visit [facility] [place] [address], [address] [place] [address] Mitul Garza MD [address] [place] [address] 02/19/2025 9:00 AM EST Ancillary Procedure [facility] Medicine Specialties [address] [place] [address] 02/19/2025 10:00 AM EST Office Visit [facility] Medicine Specialties [address], [address] [place] [address] Mariam Urban MD [address] [place] [address] documented as of this encounter Goals Goal Patient Goal Type Associated Problems Recent Progress Patient-Stated? Author Patient will verbalize understanding of orthotic wear , care and precautions. Occupational Therapy No Pat Bueno documented as of this encounter Visit Diagnoses Not on filedocumented in this encounter Additional Health Concerns Assessment Noted Time PHQ-9 Depression Total Score: 0 09/28/19 25 3:19 PM EDT A fall risk assessment has been complete d for the patient 09/27/2024 3:19 PM EDT A Body Mass Index follow-up plan has been documented for the patient 09/29/2024 4:22 PM EDT documented as of this encounter Care Teams Lookback Coordinator Relationship Specialty Start Date End Date Bill Lamar MD [address] [place] [address] PCP - General 04/13/22 documented as of this encounter
--- OUTSIDE RECORDS SUMMARY | 2024-10-23 12:08 | XMS_ITS | Encounter Summary ---
Author Organization [employer] ([place], [place], [place], [place]) Address [address] [place] [address] Care Team Providers Care Interior Design Principal Name Role Phone Unavailable Primary Care Provider Unavailabl e Encounter Details Date Type Department Care Team (Late st Contact Info) Description 03/26/2021 Transcribed Document [facility] [place] Family Medicine [address] [place] [address] ProviderLeyda MD [address] [place], [place] [address] Social History Tobacco Use Types Packs/Day Years [...] Date Tyrone rded Speak language other than Prydeinig at home Not on file 03/25/2023 Want [...] - Historical ProviderMD - 03/26/2021 12:15 PM BOLT HEADER Patient Education Materials Follows: Minimally Invasive Cholecystectomy, [...] these instructions at home: Medicines ??? Take tqku-vou-rbzfkix and prescription medicines only as told by [...] your pee (urine) pale yellow. ? Take ylwg-inc-kpczryz or prescription medicines. ? Eat foods that [...] cannot use soap and water, use hand firearms inspector. ? Change your bandage as told by [...] provider. Document Revised: 02/05/2020 Document Reviewed: 02/05/2020 [employer] Patient Education ? 2020 [employer]. Procedures Outpatient Surgery, Adult, Care After This [...] children on your own. Medicines ??? Take tvsu-yvh-npiepzn and prescription medicines only as told by [...] keep your urine pale yellow. ? Take hdqh-hhz-jogsbfw or prescription medicines. ? Eat foods that [...] added (diluted fruit juice). ? Eat bland, vdmt-eu-nruilf foods in small amounts as you are [...] and water are not available, use hand firearms inspector. ? Change your dressing as told by [...] drink clear fluids slowly and eat bland, ayky-ld-rzxdqm foods in small amounts. ??? Ask your health care provider what activities are safe for you. This information is not intended to replace advice given to you by your health care provider. Make sure you discuss any questions you have with your health care provider. Document Revised: 06/20/2020 Document Reviewed: 12/13/2019 Elsevier Patient Education ? 2020 [employer] Electronically signed by Ernesto Betancourt Conversion Hobbing Machine Operator Cerner at 06/22/2022 9:13 AM CDT documented in this encounter Plan of Treatment Not on file documented as of this encounter Visit Diagnoses Not on filedocumented in this encounter
--- OUTSIDE RECORDS SUMMARY | 2024-10-23 12:08 | XMS_ITS | Encounter Summary ---
Author Organization [employer] ([place], [place], [place], [place]) Address [address] [place] [address] Care Team Providers Care Video Game Creator Name Role Phone Unavailable Primary Care Provider Unavailabl e Encounter Details Date Type Department Care Team (Late st Contact Info) Description 09/04/2019 Transcribed Document [facility] [place] [address] [place] [address] ProviderLeyda MD [place] [address] Social History Tobacco Use Types Packs/Day Years [...] Clark MD - 09/04/2019 9:45 AM CDT [facility] PACU Summary Primary Physician: ZINA STEELE MD-GAE Finalized Date/Time: 09/04/19 10:20:18 Pt. Name: MELINDA APONTE D.O.B./Sex: 1975 Female Med Rec #: [id number] Physician: ZINA STEELE MD-GAE Financial #: [id number] Pt. Type: O Room/Bed: END/ Admit/Disch: 09/04/19 08:25:00 - Institution: [facility] PACU Case Times Entry 1 In PACU I 09/04/19 09:56:00 Ready for PACU 09/04/19 10:20:00 Discharge Discharge from PACU 09/04/19 10:20:00 I Last Modified By: Heather Hernandez RN 09/04/19 10:20:14 ERNESTO Endo PACU Case Times Audit 09/04/19 10:20:14 Station Chief: [id number] Modifier: [id number] <+> 1 Ready for PACU Discharge <+> 1 Discharge from PACU I Finalized By: Heather Hernandez, RN Document Signatures Signed By: Heather Hernandez RN 09/04/19 10:20 documented in this encounter Plan of Treatment Not on file documented as of this encounter Visit Diagnoses Not on filedocumented in this encounter
--- OUTSIDE RECORDS SUMMARY | 2024-10-23 12:08 | XMS_ITS | Encounter Summary ---
Author Organization [employer] ([place], [place], [place], [place]) Address [address] [place] [address] Care Team Providers Care Occupational Therapy Aides Teacher Name Role Phone Unavailable Primary Care Provider Unavailabl e Encounter Details Date Type Department Care Team (Late st Contact Info) Description 03/26/2021 Transcribed Document [facility] [place] [address] [place] [address] ProviderLeyda MD [address] [place], [place] [address] Social History Tobacco Use Types Packs/Day Years [...] Date Tyrone rded Speak language other than Pakistani at home Not on file 03/25/2023 Want [...] - Historical ProviderMD - 03/26/2021 11:52 AM INDUSTRIAL MANAGEMENT TEACHER DATE OF PROCEDURE: 03/26/2021 SURGEON: Marvin Baum MD PREOPERATIVE DIAGNOSIS: Symptomatic cholelithiasis. POSTOPERATIVE DIAGNOSIS: Symptomatic cholelithiasis. PROCEDURES: 1. Laparoscopic cholecystectomy. 2. ICG monitoring. BOOK SHELVER: Smith Mora. ANESTHESIA: General endotracheal. FINDINGS: The [...] The subxiphoid fascial defect was closed with xugwts-vs-fpixe 0 Vicryl stitch. Skin incisions were closed with 4-0 Monocryl in a subcuticular fashion followed by Dermabond. The patient tolerated the procedure well. There were no immediate complications. Sponge and needle counts were correct. She was taken to Recovery in stable condition. /[id number] MD BILLY Nichols/PAMELLA / BILLY / SEAN /[id number] Electronically signed by Serafin, Ernesto Conversion Calender Machine Operator Helper Cerner at 06/22/2022 9:42 AM CDT documented in this encounter Plan of Treatment Not on file documented as of this encounter Visit Diagnoses Not on filedocumented in this encounter
--- OUTSIDE RECORDS SUMMARY | 2024-10-23 12:08 | XMS_ITS | Encounter Summary ---
Author Organization Healthcare Address [address] [id number] Care Team Providers Care Construction Safety Consultant Name Role Phone Bill Lamar MD Primary Care Provider [phone] Encounter Details Date Type Department Care Team (Late st Contact Info) Description 10/01/2024 Telephone [facility] Medicine Specialties [address] [place] [address] Vonnie Ramos MD [address] [place] [address] Social History Tobacco Use Types Packs/Day Years [...] as of this encounter Miscellaneous Notes * Telephone Encounter - Ayana Vázquez - 10/01/2024 12:39 PM EDT LVM for PT with appointment on 10/26/2024. Scheduled in Tuesday fellows clinic with Dr. Ramos per him. Should Pt call back to r/s please reach out to Ayana or June for assistance. documented in this encounter Plan of Treatment Upcoming Encounters Date Type Department Care Team (Late st Contact Info) Description 10/26/2024 10:10 AM EDT Consult [facility] Medicine Specialties [address] [place] [address] 11/20/2024 10:00 AM EDT Office Visit [facility] [place] [address] [place] [address] Sara Johnson, SALES FORCE DEVELOPER [address] [place] [address] 01/08/2025 4:00 PM EST Office Visit [facility] [address], [address] [place] [address] Mitul Garza MD [address] [place] [address] 02/19/2025 9:00 AM EST Ancillary Procedure [facility] Medicine Specialties [address], [address] [place] [phone] 02/19/2025 10:00 AM EST Office Visit [facility] Medicine Specialties [address], [address] [place] [address] Mariam Urban MD [address] [place] [address] documented as of this encounter Goals Goal [...] documented as of this encounter Care Teams Construction Safety Consultant Relationship Specialty Start Date End Date Bill Lamar MD [address] [place] [address] PCP - General 04/13/22 documented as of this encounter
--- OUTSIDE RECORDS SUMMARY | 2024-10-23 12:08 | XMS_ITS | Encounter Summary ---
Author Organization [employer] ([place], [place], [place], [place]) Address [address] [place] [address] Care Team Providers Care Bracelet Former Name Role Phone Unavailable Primary Care Provider Unavailabl e Encounter Details Date Type Department Care Team (Late st Contact Info) Description 03/25/2021 Transcribed Document [facility] [place] Family Medicine [address] [place] [address] ProviderLeyda MD [address] [place], [place] [address] Social History Tobacco Use Types Packs/Day Years [...] Date Tyrone rded Speak language other than Barbadian at home Not on file 03/25/2023 Want [...] - Historical ProviderMD - 03/25/2021 2:18 PM GENERAL OPERATIONS AGENT PAT Adult Entered On: 03/25/2021 14:20 EST Performed On: 03/25/2021 14:18 EST by Linda May Rn Height and Weight, Clinical Dosing Height Source : Measured Height Entry Format : Wells Height, Feet : 5 ft(Converted to: 152 cm, 60 Inch) Height, Inches : 1 Inch(Converted to: 0 ft 1 Inch, 2.54 cm) Clinical Height : 154.94 cm Weight Source : Standing scale Weight Entry Format : Wells Clinical Dosing Weight : 81.08 kg Weight, Pounds : 178 lb Weight, Ounces : 6 oz Body Surface Area (BSA) : 1.8 m2 Body Mass Index : 33.8 kg/m2 (HI) [place] Body Weight : 47 kg Linda May Rn - 03/26/2021 9:05 EST Health Histories Smoking Status : Never (less than 100 in lifetime; none in last 30 days) Smokeless Tobacco Status : Never Implant/Device Type, Final Cleaner and Model : denies Linda May Rn [...] Linda May Rn - 03/25/2021 14:18 EST [place] Suicide Severity Rating Scale (C-SSRS) CSSRS Past [...] #2 Relationship : na Primary Language : Barbadian Preferred Communication Mode : Verbal Communication Barrier : None Passenger Conductor Needed : No Linda May Rn - [...]
--- OUTSIDE RECORDS SUMMARY | 2024-10-23 12:08 | XMS_ITS | Encounter Summary ---
Author Organization [employer] ([place], [place], [place], [place]) Address [address] [place] [address] Care Team Providers Care Commercial Sales Representative Name Role Phone Unavailable Primary Care Provider Unavailabl e Encounter Details Date Type Department Care Team (Late st Contact Info) Description 09/30/2018 Transcribed Document [facility] [place] [address] ProviderLeyda MD [address] [place] [address] Social History Tobacco Use Types Packs/Day Years [...] including vitamins, herbs, eye drops, creams, and egbw-rzb-bmqtxgs medicines. ??? Previous problems your child or [...] 08/25/2015 Elsevier Interactive Patient Education ? 2019 [employer] documented in this encounter Plan of Treatment Not on file documented as of this encounter Visit Diagnoses Not on filedocumented in this encounter
--- OUTSIDE RECORDS SUMMARY | 2024-10-23 12:08 | XMS_ITS | Encounter Summary ---
Author Organization [employer] ([place], [place], [place], [place]) Address [address] [place] [address] Care Team Providers Care Butt Presser Name Role Phone Unavailable Primary Care Provider Unavailabl e Encounter Details Date Type Department Care Team (Late st Contact Info) Description 09/30/2018 Transcribed Document [facility] [place] [address] [place] [address] ProviderLeyda MD [address] [place] [address] Social History Tobacco Use Types Packs/Day Years [...] Lawson Garces RN - 09/30/2018 5:11 EDT documented in this encounter Plan of Treatment Not on file documented as of this encounter Visit Diagnoses Not on filedocumented in this encounter
--- OUTSIDE RECORDS SUMMARY | 2024-10-23 12:08 | XMS_ITS | Encounter Summary ---
Author Organization [employer] ([place], [place], [place], [place]) Address [address] [place] [address] Care Team Providers Care Standards Engineer Name Role Phone Unavailable Primary Care Provider Unavailabl e Encounter Details Date Type Department Care Team (Late st Contact Info) Description 09/29/2018 Transcribed Document [facility] [place] [address] [place] [address] ProviderLeyda MD [facility] [place] [address] Social History Tobacco Use Types Packs/Day Years [...] APONTE /Sex: 1975 Female Med Rec #: [id number] Physician: SAMAN THOMPSON MD Financial #: [id number] Pt. Type: O Room/Bed: [facility]/4 Admit/Disch: 09/29/18 11:27:00 - Institution: [facility] [place] PreOp Case Times Entry 1 In Preop 09/29/18 11:40:00 Ready for Holding n/a Room Patient Ready for 09/29/18 12:26:00 Surgery Patient Out of Preop 09/29/18 14:19:00 Patient Out of n/a Holding Room Last Modified By: ALYSE MIKE 09/29/18 14:31:43 SJJosef PreOp Case Times Audit 09/29/18 14:31:43 Safety Sealer: HILLARY Modifier: [email or web address] <+> 1 Patient Out of Preop Finalized By: ALYSE MIKE Document Signatures Signed By: ALYSE MIKE 09/29/18 14:31 documented in this encounter Plan of Treatment Not on file documented as of this encounter Visit Diagnoses Not on filedocumented in this encounter
--- OUTSIDE RECORDS SUMMARY | 2024-10-23 12:08 | XMS_ITS | Encounter Summary ---
Author Organization [employer] ([place], [place], [place], [place]) Address [address] [place] [address] Care Team Providers Care Radiological Metallurgist Name Role Phone Unavailable Primary Care Provider Unavailabl e Encounter Details Date Type Department Care Team (Late st Contact Info) Description 09/30/2018 Transcribed Document [facility] [place] [address] [place] [address] ProviderLeyda MD [address] [place] [address] [id number] Social History Tobacco Use Types Packs/Day Years [...] Clark MD - 09/30/2018 1:42 PM CDT [place] [id number] HECTOR MELINDA GORAN :1975 Visit Time:09/29/2018 Your [...] Care Team Discharge Follow Up Instructions: followup [id number] Activity: Discharge Activity: No heavy lifting over [...] made. [facility] [address] [facility] [address] [place] [address]- Follow Up with Follow up with primary [...] including vitamins, herbs, eye drops, creams, and iznn-ekg-ofmkkvn medicines. ??? Previous problems your child or [...] 02/21/2006 Document Revised: 07/29/2016 Document Reviewed: 08/25/2015 [employer] Interactive Patient Education ?? 2019 [employer]. acetaminophen and hydrocodone (a SEET a MIN oh fen and genaro mirtha KOE done) Hycet, Lorcet, [place], Verdrocet, Vicodin, Xodol, Zamicet What is the [...] may report side effects to FDA at 1-615-GWG-6788. What other drugs will affect acetaminophen and [...] affect acetaminophen and hydrocodone, including prescription and oehe-dtk-llepovm medicines, vitamins, and herbal products. Not all [...] to ensure that the information provided by [facility]. ('[employer]') is accurate, up-to-date, and complete, but no guarantee is made to that effect. Drug information contained herein may be time sensitive. [employer] information has been compiled for use by healthcare practitioners and consumers in the [place] and therefore [employer] does not warrant that uses outside of the [place] are appropriate, unless specifically indicated otherwise. [employer]'s drug information does not endorse drugs, diagnose patients or recommend therapy. [employer] drug information is an informational resource designed [...] effective or appropriate for any given patient. [employer] does not assume any responsibility for any aspect of healthcare administered with the aid of information [employer] provides. The information contained herein is not intended to cover all possible uses, directions, precautions, warnings, drug interactions, allergic reactions, or adverse effects. If you have questions about the drugs you are taking, check with your doctor, nurse or pharmacist. Copyright 4611-9571 [facility] [employer]. Version: 15.02. Revision Date: 01/09/2018.ondansetron (oral) (on [...] may report side effects to FDA at 2-313-KZA-0443. What other drugs will affect ondansetron? Ondansetron [...] interact with ondansetron. This includes prescription and rzzu-ijd-ffdfdrn medicines, vitamins, and herbal products. Give a [...] to ensure that the information provided by [facility]. ('[employer]') is accurate, up-to-date, and complete, but no guarantee is made to that effect. Drug information contained herein may be time sensitive. [employer] information has been compiled for use by healthcare practitioners and consumers in the [place] and therefore [employer] does not warrant that uses outside of the [place] are appropriate, unless specifically indicated otherwise. [employer] drug information does not endorse drugs, diagnose patients or recommend therapy. [employer] drug information is an informational resource designed [...] effective or appropriate for any given patient. [employer] does not assume any responsibility for any aspect of healthcare administered with the aid of information [employer] provides. The information contained herein is not intended to cover all possible uses, directions, precautions, warnings, drug interactions, allergic reactions, or adverse effects. If you have questions about the drugs you are taking, check with your doctor, nurse or pharmacist. Copyright 5851-3039 [facility]. Version: 13.01. Revision Date: 12/26/2015. Emergency Awareness [...] Assistance with quitting is available by contacting 9-114-CPGJ-NOW. This is a free resource providing counseling, [...] was given the opportunity to ask questions. Patient/Welfare Project Manager Name: Patient/Welfare Project Manager Signature: Relationship to Patient: Clinician/Hospital Welfare Project Manager Signature: Date: documented in this encounter Plan of Treatment Not on file documented as of this encounter Visit Diagnoses Not on filedocumented in this encounter
--- OUTSIDE RECORDS SUMMARY | 2024-10-23 12:08 | XMS_ITS | Encounter Summary ---
Author Organization [employer] ([place], [place], [place], [place]) Address [address] [place] [address] Care Team Providers Care Lead Bi Developer Name Role Phone Unavailable Primary Care Provider Unavailabl e Encounter Details Date Type Department Care Team (Late st Contact Info) Description 09/04/2019 Transcribed Document [facility] [place] [facility] [place] [address] ProviderLeyda MD [address] [place] [id number] Social History Tobacco Use Types Packs/Day Years [...] activities are safe for you. ??? Take tmlj-dme-qxaaiky and prescription medicines only as told by [...] 05/30/2001 Document Revised: 10/07/2017 Document Reviewed: 10/07/2017 [employer] Interactive Patient Education ? 2020 Cribspot. Silveira's Esophagus Silveira's esophagus occurs when the [...] Tomatoes and foods made with tomatoes. ? [place] or spicy foods. ? Chocolate and peppermint. ??? Do not drink alcohol. General instructions ??? Take wpmr-mdj-enmxvcc and prescription medicines only as told by [...] 05/13/2004 Document Revised: 06/19/2018 Document Reviewed: 06/19/2018 [employer] Interactive Patient Education ? 2019 [employer]. Electronically signed by Ernesto Betancourt Conversion Automotive Service Assistant Cerner at 06/22/2022 9:39 AM CDT documented in this encounter Plan of Treatment Not on file documented as of this encounter Visit Diagnoses Not on filedocumented in this encounter
--- OUTSIDE RECORDS SUMMARY | 2024-10-23 12:08 | XMS_ITS | Encounter Summary ---
Author Organization [employer] ([place], [place], [place], [place]) Address [address] [place] [address] Care Team Providers Care Ranch Hand Name Role Phone Unavailable Primary Care Provider Unavailabl e Encounter Details Date Type Department Care Team (Late st Contact Info) Description 09/29/2018 Transcribed Document [facility] [place] [address] [place] [address] ProviderLeyda MD [address] [place] [address] Social History Tobacco Use Types Packs/Day Years [...]
--- OUTSIDE RECORDS SUMMARY | 2024-10-23 12:08 | XMS_ITS | Encounter Summary ---
Author Organization [employer] ([place], [place], [place], [place]) Address [address] [place] [address] Care Team Providers Care Cloth Shrinker Name Role Phone Unavailable Primary Care Provider Unavailabl e Encounter Details Date Type Department Care Team (Late st Contact Info) Description 09/04/2019 Transcribed Document [facility] [place] [address] [place] [address] ProviderLeyda MD [facility] [place], [place] [id number] Social History Tobacco Use Types Packs/Day Years Used Date Smoking Tobacco: Never Assessed Comments Unknown Sex and Gender Information Value Date Recorded Sex Assigned at Not on file Legal Sex Female 6:21 PM CDT Gender Identity Not on file Sexual Orientation Not on file documented as of this encounter Miscellaneous Notes * Cerner Conversion Note - Leyda ProviderMD - 09/04/2019 9:00 AM CDT [facility] Alyssa PreOp Summary Primary Physician: ZINA STEELE MD-GAE Finalized Date/Time: 09/04/19 09:27:22 Pt. Name: MELINDA APONTEO.B./Sex: 1975 Female Med Rec #: [id number] Physician: ZINA STEELE MD-GAE Financial #: [id number] Pt. Type: O Room/Bed: END/ Admit/Disch: 09/04/19 08:25:00 - Institution: [facility] Alyssa PreOp Case Times Entry 1 In Preop 09/04/19 08:54:00 Ready for Holding n/a Room Patient Ready for 09/04/19 09:26:00 Surgery Patient Out of Preop 09/04/19 09:26:00 Patient Out of n/a Holding Room Last Modified By: Seema Sheriff RN 09/04/19 09:27:18 Finalized By: Seema Sheriff RN Document Signatures Signed By: Seema Sheriff RN 09/04/19 09:27 Electronically signed by Serafin [facility] Conversion Human Resources Operations Manager Cerner at 06/22/2022 9:18 AM CDT documented in this encounter Plan of Treatment Not on file documented as of this encounter Visit Diagnoses Not on filedocumented in this encounter
--- OUTSIDE RECORDS SUMMARY | 2024-10-23 12:08 | XMS_ITS | Encounter Summary ---
Author Organization [employer] ([place], [place], [place], [place]) Address [address] [place] [address] Care Team Providers Care Material Requirements Planning Manager Name Role Phone Unavailable Primary Care Provider Unavailabl e Encounter Details Date Type Department Care Team (Late st Contact Info) Description 09/03/2019 Transcribed Document [facility] [place] [address] [place] [address] ProviderLeyda MD [facility] [place] [address] Social History Tobacco Use Types Packs/Day Years [...] Source : Stated Height Entry Format : [place] Height, Feet : 5 ft(Converted to: 152 cm, 60 Inch) Height, Inches : 1 Inch(Converted to: 0 ft 1 Inch, 2.54 cm) Clinical Height : 154.94 cm [place] Body Weight : 47 kg Vivian Torres RN - 09/03/2019 16:46 EDT Health Histories Smoking Status : Never (less than 100 in lifetime; none in last 30 days) Smokeless Tobacco Status : Never Implant/Device Type, Metal Bonding Helper and Model : Vivian Muller RN - [...] Vivian Torres RN - 09/03/2019 16:46 EDT [place] Suicide Severity Rating Scale (C-SSRS) CSSRS Past [...] #2 Relationship : na Primary Language : Finnish Preferred Communication Mode : Verbal Communication Barrier : None Dispatcher Refinery Needed : No Vivian Torres RN - [...] Scale Risk Level : 0-24 Low Risk [place] Fall Interventions : Hourly comfort/safety rounds, Non-slip footwear, Reinforced to call for assistance before getting out of bed Vivian Torres RN - 09/03/2019 16:46 EDT Electronically signed by Ernesto Betancourt Conversion Electronic Parts Salesperson Cerner at 06/22/2022 9:32 AM CDT documented in this encounter Plan of Treatment Not on file documented as of this encounter Visit Diagnoses Not on filedocumented in this encounter
--- OUTSIDE RECORDS SUMMARY | 2024-10-23 12:08 | XMS_ITS | Clinical Summary ---
Author Organization [facility] Address [address] [place] [address] Care Team Providers Care Linoleum Tile Layer Name Role Phone Bill Lamar MD Primary Care Provider [phone] Allergies Active Allergy Reactions Criticality Noted Date Comments Lamotrigine Hives,Palpitations High 08/31/2021 Levofloxacin Nausea,Other - pleas e document in the comment field,Palpitations,Vomiting Low 11/28/2023 Novi Other - please docum ent in the comment field Low 10/28/2021 Swollen neck Medications estradiol (Vivelle-DOT) 0.025 MG/24HR estradiol 2MG DAILY Active Magnesium 100 MG capsule magnesium 500MG DAILY Active famotidine (Pepcid) 40 MG tablet famotidine 40 mg Active Melatonin 12 MG tablet Take 24 mg by mouth. Active nortriptyline (Pamelor) 50 MG capsule Take 1 capsule (50 mg) by mouth 1 (one) time each day. 3 Active hydroxychloroq uine (Plaquenil) 200 MG tablet Active colchicine (Colcrys) 0.6 MG tablet Active ondansetron (Zofran) 4 MG tablet Active promethazine (Phenergan) 25 MG tablet Take 1 tablet (25 mg) by mouth every 8 (eight) hours if needed. 4 Active Motegrity 2 MG tablet Take 1 tablet (2 mg) by mouth 1 (one) time each day. 4 Active Voquezna 20 MG tablet Take 1 tablet by mouth 1 time each day. 5 Active acetaminophen (Tylenol) 500 MG tablet Take 2 tablets by mouth every 6 hours as needed. Active LORazepam (Ativan) 1 MG tablet Take 1 tablet by mouth daily. Active polyethylene glycol (Miralax) 17 g packet Take 17 g by mouth daily. Active hyoscyamine (Levsin) 0.125 MG SL tablet 5 Active carvedilol (Coreg) 3.125 MG tablet Take 1 tablet by mouth 2 times a day. Active empagliflozin (Jardiance) 10 MG Take 1 tablet by mouth 1 time each day. 4 02/06/20 Active glucosamine-ch ondroitin 500-400 MG tablet Take 1 tablet by mouth 3 times a day. Active sacubitril-micah sartan (Entresto) 24-26 MG tablet Take 1 tablet by mouth 2 times a day. 60 tablet 5 5 Active eplerenone (Inspra) 25 MG tablet Take 1 tablet by mouth daily. 30 tablet 5 5 Active cholecalcifero l (Vitamin D3) 200 Unit tablet split tablet Take 5,000 Units by mouth 1 (one) time each day. 09/30/19 Discontinu ed(Per Patient Report) pantoprazole (Protonix) 20 MG EC tablet Protonix 09/30/19 Discontinu ed(Per Patient Report) amitriptyline (Elavil) 10 MG tablet Take 7.5 tablets (75 mg) by mouth every night. 2 09/30/19 Discontinu ed(Per Patient Report) traMADol (Ultram) 50 MG tablet every 12 (twelve) hours. 09/30/19 Discontinu ed(Per Patient Report) pyridostigmine (Mestinon) 60 MG tablet Take 0.5 tablets (30 mg) by mouth 3 (three) times a day. 3 09/30/19 Discontinu ed(Per Patient Report) dexlansoprazol e (Dexilant) [address] capsule Take 1 capsule (60 mg) by mouth 1 (one) time each day. 4 09/30/19 Discontinu ed(Per Patient Report) Collagen-Afton -Hyaluronic Acid ([employer] 40-5-3.3 MG tablet 09/30/19 Discontinu ed(Per Patient Report) busPIRone (Buspar) 10 MG tablet 07/26/20 25 Discontinu ed(Per Patient Report) bethanechol (Urecholine) 25 MG tablet Take 1 tablet (25 mg) by mouth 3 times a day. 4 09/30/19 25 Discontinu ed(Per Patient Report) Entresto 24-26 MG tablet Take 1 tablet by mouth 2 times a day. 5 09/28/19 25 Discontinu ed(Dose adjustment ) sacubitril-micah sartan (Entresto) 49-51 MG tablet Take 1 tablet by mouth 2 times a day. 60 tablet 5 5 10/17/19 25 Discontinu ed(Dose adjustment ) cyclobenzaprin e (Flexeril) 5 MG tabletIndicati ons:Muscle Spasm,pain Take 1 tablet by mouth 3 times a day for 5 days. 15 tablet 5 10/12/19 Active Problems Problem Noted Date Diagnosed Date Iron deficiency anemia 10/04/2024 Acute on chronic systolic heart failure 10/05/19 Dysphagia, pharyngoesophageal phase 12/22/2023 Complex tear of medial menis cus of right knee as current injury 01/19/2022 Encounters Date Type Department Care Team Description 10/19/2024 Travel 10/18/2024 11:27 AM EDT - 10/18/2024 11:59 PM EDT Hospital Encounter [facility] [address] [place] [address] Chronic heart failure, unspecified heart failure type (CMS/HCC); Bradycardia Discharge Disposition: Home or Self Care 10/18/2024 Travel 10/17/2024 Travel 10/17/2024 Telephone [facility] [address] [place] [address] Madhuri Brand RN 10/16/2024 10:00 AM EDT Office Visit [facility] [place] [address], [address] [place] [address] Sara Johnson APRN HFrEF (heart failure with reduced ejection fraction) (CMS/HCC) (Primary Dx); Iron deficiency anemia, unspecified iron deficiency anemia type; NICM (nonischemic cardiomyopathy) (CMS/HCC); Bradycardia 10/16/2024 Travel 10/12/2024 Travel 10/06/2024 10:05 AM EDT - 10/06/2024 1:37 PM EDT Emergency [facility] [address] [place] [address] Tyshawn Snell MD Chest wall pain (Primary Dx) Discharge Disposition: Home or Self Care 10/06/2024 Travel 10/05/2024 Telephone [facility] [address] [place] [address] Sabiha Taylor, PharmD 10/04/2024 Orders Only [facility] [address] [place] [address] Brittaney Morales, RN 10/01/2024 Telephone [facility] [address] [place] [address] Vonnie Ramos MD 09/28/2024 Orders Only [facility] [address] [place] [address] Mariam Urban MD Lung nodules (Primary Dx) 09/28/2024 Orders Only [facility] [address] [place] [address] Brittaney Morales, RN Lung nodules (Primary Dx); Scleroderma (CMS/HCC) 09/28/2024 Travel 09/27/2024 4:30 PM EDT - 09/27/2024 11:59 PM EDT Hospital Encounter Medical Office Building Cardiac Diagnostic Testing Medical Office Building Echo Lab [address], [address] [place] [address] Bradycardia Discharge Disposition: Home or Self Care 09/27/2024 2:40 PM EDT [facility] [address], [address] [place] [address] Mitul Garza MD Chronic heart failure, unspecified heart failure type (CMS/HCC) (Primary Dx); Bradycardia 09/27/2024 Travel from Last 3 Months Family History Medical History Relation Name Comments [...] drink first t cyndie in the morning (EYE-PATIENT REGISTRAR) to steady your nerves or to get [...] EDT Inhaled Oxygen Concentration - - Weight 82 kg (180 lb 12.4 oz) 10/18/2024 11:33 A M EDT Height 155 cm (5' 1.02 ) 10/18/2024 11:33 AM EDT Body Mass Index 34.13 10/18/2024 11:33 AM EDT Plan of Treatment Upcoming Encounters Date Type Department Care Team (Late st Contact Info) Description 10/26/2024 10:10 AM EDT Consult [facility] [address] [place] [address] 11/20/2024 10:00 AM EDT Office Visit [facility] [address], [address] [place] [address] Sara Johnson, CARD PUNCHER [address] [place] [address] 01/08/2025 4:00 PM EST [facility] Visit [facility] [address], [address] [place] [address] Mitul Garza MD [address] [place] [address] 02/19/2025 9:00 AM EST Ancillary Procedure [facility] [address] [place] [address] 02/19/2025 10:00 AM EST Office Visit [facility] [address] [place] [address] Mariam Urban MD [address] [place] [address] Health Maintenance Due Date Last Done Comments [facility]-Infant/Child/Adol SDOH Screenings 1973 [facility]- SDOH Screenings 1991 [facility]-Adult SDOH Screenings 1991 [facility]-DTaP,Tdap,and Td Vaccines (1 - Tdap) 01/31/1992 [facility]-Hepatitis B Vaccines (1 of 3 - 19+ 3-dose series) 01/31/1992 [facility]-Pneumococcal Vaccine: 50+ Years (1 of 2 - PCV) 01/31/1992 CT Colonography 2018 Colonoscopy 2018 FIT-DNA 2018 FIT 2018 FOBT 2018 Sigmoidoscopy 2018 [facility]-Colorectal Cancer Screening 2018 [facility]-Zoster Vaccines (1 of 2) 2023 [facility]-Influenza Vaccine (#1) 11/05/202412/23, 01/23/2023, 01/19/2022 [facility]-Breast Cancer Screening 06/15/202506/05, 06/16/2023, 04/13/2022, Additional history exists [facility]-Depression Screening 09/27/2025 09/27/2024, 09/05 [id number] Vaccine Completed 12/24/2023, 01/23/2023, 12/12/2021, Additional history exists [facility]-HIV Screening Completed 10/06/2024 [facility]-Hepatitis C Screening Completed 10/06/2024 [facility]-Obesity Intervention Completed 025, 09/27/2024, 11/28/2023, Additional history exists HPV Vaccines Aged Out [...] BLOOD STAT 10/18/2024 11: 49 AM EDT TROPONIN T, HIGH SENSITIVITY, 2 HOUR, PLASMA Timed 10/06/2024 12:05 PM EDT ECG ADULT STAT 10/06/2024 11:09 AM EDT XR CHEST 1 VIEW STAT 10/06/2024 10:50 AM EDT ED HIV 1/2 ANTIBODY/ANTIGEN SCREEN WITH REFLEX TO HIV I/II DIFFERENTIATION STAT 10/06/2024 10:03 AM EDT ED PROTOCOL HIV 1/2 ANTIBODY/ANTIGEN SCREEN W/REFLEX TO HIV 1/2 ANTIBODY DIFFERENTIATION STAT 10/06/2024 10:03 AM EDT HEPATITIS C ANTIBODY - ED W/REFLEX TO HCV QUANT PCR STAT 10/06/2024 10:03 AM EDT CBC WITH AUTO DIFFERENTIAL STAT 10/06/2024 10:03 AM EDT LIPASE, PLASMA STAT 10/06/2024 10:03 AM EDT COMPREHENSIVE METABOLIC PANEL, PLASMA STAT 10/06/2024 10:03 AM EDT TROPONIN T, HIGH SENSITIVITY, 0 HOUR, PLASMA, REFLEX TO 2 HOUR STAT 10/06/2024 10:03 AM EDT ECG ADULT STAT 10/06/2024 9:41 AM EDT CREATINE KINASE, TOTAL, PLASMA Routine 09/27/2024 4:33 [...] heart failure, unspecified heart failure type (CMS/HCC) MAMMOGRAPHY BREAST SCREENING TOMOSYNTHESIS BILATERAL Routine 04/13/2022 4:52 PM EST Visit for screening mammogram from Last 3 Months or Most Recently Relevant to Health Maintenance Results * MR Cardiac Morphology and Function [...] enhancement. Normal T2 mapping as well as [place] T1 mapping and ECV is not suggestive [...] --- Tissue Characterization --- T1 Mapping: Myocardial [place] T1: 1192ms Blood pool [place] T1: 1657ms Myocardial post contrast T1: 415ms [...] --- Tissue Characterization --- T1 Mapping: Myocardial [place] T1: 1192ms Blood pool [place] T1: 1657ms Myocardial post contrast T1: 415ms [...] enhancement. Normal T2 mapping as well as [place] T1 mapping andECV is not suggestive of [...] on 10/18/2024 4:46 PM Mitul Garza MD IM MRI PROCEDURES Final Resul t * Hematocrit, Blood (10/18/2024 11:49 AM EDT) HCT 34.1 34.0 - 45.0 % LAB HEMATOLOGY METHOD 10/18/2024 12:36 PM EDT [facility] Blood Venous blood specimen / Unknown Venipuncture / Unknown 10/18/2024 11:49 AM EDT 10/18/2024 12:26 PM EDT us Oral Josefina Palmer DO LAB BLOOD ORDERABLES Final Result Performing Organization Address [facility]/ZIP Co de Phone Number [facility] [address] [place] [address] * Troponin T, High Sensitivity, 2 Hour, Plasma (10/06/2024 12:05 PM EDT) Troponin T, High Sensitivity, 2 Hour <6 <14 ng/L 10/06/2024 12:43 PM EDT [facility] Blood Venous blood specimen / Unknown Venipuncture / Unknown 10/06/2024 12:05 PM EDT 10/06/2024 12:23 PM EDT us Tyshawn Snell MD LAB BLOOD ORDERABLES Final Result Performing Organization Address [facility] de Phone Number [facility] [address] [place] [address] * ECG Adult (10/06/2024 11:09 AM EDT) Only the most recent of3 resultswithin the time period is included. EKG DIAGNOSIS CLASS Abnormal MUSE ECG Ventricular Rate 72 BPM MUSE ECG Atrial Rate 72 BPM MUSE ECG FL Interval 194 ms MUSE ECG QRSD Interval 160 ms MUSE ECG QT Interval 498 ms MUSE ECG QTC Interval 545 ms MUSE ECG P [place] 63 degrees MUSE ECG R [place] 127 degrees MUSE ECG T Wave [place] 26 degrees MUSE ECG Diagnosis Normal sinus rhythm MUSE ECG Diagnosis Right axis deviation MUSE ECG Diagnosis Lateral infarct , age undetermined MUSE ECG Diagnosis Nonspecific intraventricular block MUSE ECG Diagnosis Abnormal ECG MUSE ECG Diagnosis MUSE ECG Diagnosis Compared to last ECG MUSE ECG Diagnosis No significant change was found MUSE ECG Diagnosis Confirmed by Boaz Pisano ([id number]) on 10/07/2024 1:04:12 PM MUSE ECG 10/06/2024 11:0 9 AM EDT 10/07/2024 1:04 PM EDT us Courtney MELGAR ECG ORDERABLES Final Res ult Performing Organization Address City/[facility] Co de Phone Number MUSE ECG * XR Chest 1 View [...] Zakiya Liz MD on 10/06/2024 11:03 AM us Tyshawn Snell MD IMG XR PROCEDURES Final Res ult * ED HIV 1/2 Antibody/Antigen Screen w/Reflex to HIV 1/2 Differentiation (10/06/2024 10:03 AM EDT) HIV 1 & 2 Antibody/Antigen Screen Non Reactive Non Reactive 10/06/2024 11:02 AM EDT [facility] Comment:Screening for HIV 1 & 2 antibodies, and P24 antigen is NONREACTIVE. No confirmatory testing is required. Blood Venous blood specimen / Unknown Venipuncture / Unknown 10/06/2024 10:03 AM EDT 10/06/2024 10:23 AM EDT us Tyshawn Snell MD LAB BLOOD ORDERABLES Final Result [facility] [address] [place] [address] * Troponin now and 120 min (10/06/2024 10:03 AM EDT) Pathologist [facility] Troponin T, High Sensitivity, 0 Hour <6 <14 ng/L 10/06/2024 10:28 AM EDT [facility] Blood Venous blood specimen / Unknown Venipuncture / Unknown 10/06/2024 10:03 AM EDT 10/06/2024 10:07 AM EDT Tyshawn Snell MD LAB BLOOD ORDERABLES Final Result Performing Organization Address City/[facility]/ZIP Co de Phone Number [facility] [address] [place] [address] * Hepatitis C Antibody - ED (10/06/2024 10:03 AM EDT) Pathologist [facility] Hepatitis C Antibody Negative Negative 10/06/2024 11:04 AM EDT [facility] Blood Venous blood specimen / Unknown Venipuncture / Unknown 10/06/2024 10:03 AM EDT 10/06/2024 10:23 AM EDT Tyshawn Snell MD LAB BLOOD ORDERABLES Final Result Performing Organization Address City/[facility]/ZIP Co de Phone Number [facility] [address] [place] [address] * (ABNORMAL) CBC w/diff (10/06/2024 10:03 AM EDT) Pathologist [facility] WBC Count 5.99 3.70 - 10.30 10*3/uL LAB HEMATOLOGY METHOD 10/06/2024 10:09 AM EDT [facility] RBC Count 3.72(L) 3.90 - 5.20 10*6/uL LAB HEMATOLOGY METHOD 10/06/2024 10:09 AM EDT [facility] HGB 11.3 11.2 - 15.7 g/dL LAB HEMATOLOGY METHOD 10/06/2024 10:09 AM EDT [facility] HCT 34.6 34.0 - 45.0 % LAB HEMATOLOGY METHOD 10/06/2024 10:09 AM EDT [facility] Platelet Count 238 155 - 369 10*3/uL LAB HEMATOLOGY METHOD 10/06/2024 10:09 AM EDT [facility] MCV 93 79 - 98 fL LAB HEMATOLOGY METHOD 10/06/2024 10:09 AM EDT [facility] MCH 30.4 26.0 - 32.0 pg LAB HEMATOLOGY METHOD 10/06/2024 10:09 AM EDT [facility] MCHC 32.7 30.7 - 35.5 g/dL LAB HEMATOLOGY METHOD 10/06/2024 10:09 AM EDT [facility] RDW 13.3 11.5 - 14.5 % LAB HEMATOLOGY METHOD 10/06/2024 10:09 AM EDT [facility] MPV 9.8 8.8 - 12.5 fL LAB HEMATOLOGY METHOD 10/06/2024 10:09 AM EDT [facility] nRBC 0.0 <=0.0 per 100 WBCs LAB HEMATOLOGY METHOD 10/06/2024 10:09 AM EDT [facility] Differential Type Automated LAB HEMATOLOGY METHOD 10/06/2024 10:09 AM EDT [facility] Neutrophils % 49 % LAB HEMATOLOGY METHOD 10/06/2024 10:09 AM EDT [facility] Lymphocytes % 38 % LAB HEMATOLOGY METHOD 10/06/2024 10:09 AM EDT [facility] Monocytes % 8 % LAB HEMATOLOGY METHOD 10/06/2024 10:09 AM EDT [facility] Eosinophils % 4 % LAB HEMATOLOGY METHOD 10/06/2024 10:09 AM EDT [facility] Basophils % 1 % LAB HEMATOLOGY METHOD 10/06/2024 10:09 AM EDT [facility] Immature Granulocytes % 0 % LAB HEMATOLOGY METHOD 10/06/2024 10:09 AM EDT [facility] Neutrophils Absolute 2.95 1.60 - 6.10 10*3/uL LAB HEMATOLOGY METHOD 10/06/2024 10:09 AM EDT [facility] Lymphocytes Absolute 2.28 1.20 - 3.90 10*3/uL LAB HEMATOLOGY METHOD 10/06/2024 10:09 AM EDT [facility] Monocytes Absolute 0.45 0.30 - 0.90 10*3/uL LAB HEMATOLOGY METHOD 10/06/2024 10:09 AM EDT [facility] Eosinophils Absolute 0.26 0.00 - 0.50 10*3/uL LAB HEMATOLOGY METHOD 10/06/2024 10:09 AM EDT [facility] Basophils Absolute 0.04 0.00 - 0.10 10*3/uL LAB HEMATOLOGY METHOD 10/06/2024 10:09 AM EDT [facility] Immature Granulocytes Absolute 0.01 0.00 - 0.06 10*3/uL LAB HEMATOLOGY METHOD 10/06/2024 10:09 AM EDT [facility] Blood Venous blood specimen / Unknown Venipuncture / Unknown 10/06/2024 10:03 AM EDT 10/06/2024 10:07 AM EDT Narrative [facility] - 10/06/2024 10:09 AM EDT Therapeutic decision making should be based on absolute values, rather than percentages. Tyshawn Snell MD LAB BLOOD ORDERABLES Final Result [facility] [address] [place] [address] * Lipase (10/06/2024 10:03 AM EDT) Lipase, Plasma 26 19 - 63 U/L 10/06/2024 10:28 AM EDT [facility] Blood Venous blood specimen / Unknown Venipuncture / Unknown 10/06/2024 10:03 AM EDT 10/06/2024 10:07 AM EDT Tyshwan Snell MD LAB BLOOD ORDERABLES Final Result [facility] [address] [place] [address] * CMP (10/06/2024 10:03 AM EDT) Only the most recent of2 resultswithin the time period is included. Glucose, Plasma 88 74 - 99 mg/dL 10/06/2024 10:28 AM EDT [facility] BUN, Plasma 10 7 - 21 mg/dL 10/06/2024 10:28 AM EDT [facility] Creatinine, Plasma 0.92 0.60 - 1.10 mg/dL 10/06/2024 10:28 AM EDT [facility] BUN/Creatinine Ratio 11 10/06/2024 10:28 AM EDT [facility] Sodium, Plasma 140 136 - 145 mmol/L 10/06/2024 10:28 AM EDT [facility] Potassium, Plasma 4.0 3.6 - 4.9 mmol/L 10/06/2024 10:28 AM EDT [facility] Chloride, Plasma 104 97 - 107 mmol/L 10/06/2024 10:28 AM EDT [facility] CO2, Plasma 26 22 - 29 mmol/L 10/06/2024 10:28 AM EDT [facility] Anion Gap 10 6 - 16 mmol/L 10/06/2024 10:28 AM EDT [facility] Total Calcium, Plasma 9.2 8.9 - 10.2 mg/dL 10/06/2024 10:28 AM EDT [facility] Total Protein 6.7 6.3 - 7.9 g/dL 10/06/2024 10:28 AM EDT [facility] Albumin, Plasma 4.0 3.5 - 5.2 g/dL 10/06/2024 10:28 AM EDT [facility] AST, Plasma 27 10 - 35 U/L 10/06/2024 10:28 AM EDT [facility] ALT, Plasma 21 10 - 35 U/L 10/06/2024 10:28 AM EDT [facility] Alkaline Phosphatase, Plasma 89 35 - 104 U/L 10/06/2024 10:28 AM EDT [facility] Total Bilirubin, Plasma 0.2 0.2 - 1.1 mg/dL 10/06/2024 10:28 AM EDT [facility] eGFRcr 75.5 mL/min/1.7 3m*2 10/06/2024 10:28 AM EDT [facility] Comment:Reported eGFRcr in m L/min/1.73m2 is based the CKD-EPI 2020 equation that does not use a race coefficient. Blood Venous blood specimen / Unknown Venipuncture / Unknown 10/06/2024 10:03 AM EDT 10/06/2024 10:07 AM EDT Tyshawn nSell MD LAB BLOOD ORDERABLES Final Result Performing Organization Address City/[facility]/ZIP Co de Phone Number [facility] [address] [place] [address] * Creatine Kinase (CK), Total (09/27/2024 4:33 PM EDT) Creatine Kinase, Plasma 59 37 - 168 U/L 09/27/2024 5:51 PM EDT [facility] Blood Venous blood specimen / Unknown Venipuncture / Unknown 09/27/2024 4:33 PM EDT 09/27/2024 4:34 PM EDT Mitul Garza MD LAB BLOOD ORDERABLES Final Res ult Performing Organization Address [facility] Co de Phone Number [facility] [address] [place] [address] * N-Terminal Probnp, Plasma (09/27/2024 4:33 PM EDT) N-Terminal, PROBNP, Plasma 238 0 - 899 pg/mL 09/27/2024 5:51 PM EDT [facility] Blood Venous blood specimen / Unknown Venipuncture / Unknown 09/27/2024 4:33 PM EDT 09/27/2024 4:34 PM EDT Mitul Garza MD LAB BLOOD ORDERABLES Final Res ult Performing Organization Address City/[facility] Co de Phone Number [facility] [address] [place] [address] * Angiotensin converting enzyme (09/27/2024 4:33 PM EDT) ANGIOTENSIN CONVERTING ENZYME 37 16 - 85 U/L 09/29/2024 11:50 PM EDT [facility] Blood Venous blood specimen / Unknown Venipuncture / Unknown 09/27/2024 4:33 PM EDT 09/27/2024 4:34 PM EDT Narrative RAMÍREZ CHANEL) - 09/29/2024 11:50 PM EDT Performed By: [facility] [address] [place] [address] Head Sugar Reprocess Operator: Fidel Sullivan MD, PhD CLIA Number: [id number] us Mitul Garza MD LAB BLOOD ORDERABLES Final Res ult [facility] [address] [place] [address] * Mammography Breast Screening Tomosynthesis Bilateral (04/13/2022 [...] to: 01/22/2019 Mammography Outside Images Upload at [facility] 08/28/2019 Mammography Outside Images Upload at [facility] 01/24/2020 Mammography Outside Images Upload at [facility] 03/10/2021 Mammography Outside Images Upload at [facility] BREAST COMPOSITION: The breasts have scattered areas of fibroglandular density. FINDINGS: There are silicone gel, intact retro-pectoral implant(s) present in bilateral breasts. There is no evidence of suspicious masses, calcifications, or other abnormal findings. us Bill Lamar MD IMG BI PROCEDURES Final Resul t from Last 3 Months or Most Recently Relevant to Health Maintenance Insurance [facility] Care Teams Linoleum Tile Layer Relationship Specialty Start Date End Date Bill Lamar MD [address] [facility] [place] [address] PCP - General 04/13/22
--- OUTSIDE RECORDS SUMMARY | 2024-10-23 12:08 | XMS_ITS | Encounter Summary ---
Author Organization [employer] ([place], [place], [place], [place]) Address [address] [place] [address] Care Team Providers Care Appetizer Packer Name Role Phone Unavailable Primary Care Provider Unavailabl e Encounter Details Date Type Department Care Team (Late st Contact Info) Description 09/04/2019 Transcribed Document [facility] Family Medicine [address] [place] [address] ProviderLeyda MD [address] [place], [place] [address] Social History Tobacco Use Types Packs/Day Years [...] Clark MD - 09/04/2019 10:12 AM CDT [facility] [place], [place] [id number] MELINDA APONTE :1975 Visit Time:09/04/2019 What to do next Follow-Up Appointments Follow Up with ZINA STEELE When Comments repeat EGD in 5 years biopsy report willl be mailed to you in 7-10 days Where: [address] [place] [address]- [employer] (1) Medications What How Much When Instructions [...] activities are safe for you. ??? Take mtbo-ppx-smaryty and prescription medicines only as told by [...] 05/30/2001 Document Revised: 10/07/2017 Document Reviewed: 10/07/2017 [email or web address] Interactive Patient Education ?? 2020 [employer]. Silveira's Esophagus Silveira's esophagus occurs when the [...] Tomatoes and foods made with tomatoes. ? Coxton or spicy foods. ? Chocolate and peppermint. ??? Do not drink alcohol. General instructions ??? Take rmcn-itb-hhxxihy and prescription medicines only as told by [...] 05/13/2004 Document Revised: 06/19/2018 Document Reviewed: 06/19/2018 [email or web address] Interactive Patient Education ?? 2020 [employer]. Emergency Awareness and Preventative Care STROKE is [...] Assistance with quitting is available by contacting 7-347-EJJJ-NOW. This is a free resource providing counseling, [...] was given the opportunity to ask questions. Patient/Cassandra Architect Name: Patient/Cassandra Architect Signature: Relationship to Patient: Clinician/Hospital Cassandra Architect Signature: Date: documented in this encounter Plan of Treatment Not on file documented as of this encounter Visit Diagnoses Not on filedocumented in this encounter
--- OUTSIDE RECORDS SUMMARY | 2024-10-23 12:08 | XMS_ITS | Encounter Summary ---
Author Organization [employer] ([place], [place], [place], [place]) Address [address] [place] [address] Care Team Providers Care Concrete Finishing Machine Operator Name Role Phone Unavailable Primary Care Provider Unavailabl e Encounter Details Date Type Department Care Team (Late st Contact Info) Description 09/29/2018 Transcribed Document [facility] Family Medicine [address] [place] [address] ProviderLeyda MD [address] [place] [id number] Social History Tobacco Use Types Packs/Day Years [...] Clark MD - 09/29/2018 2:43 PM CDT [facility] Main OR IntraOp Summary Primary Physician: SAMAN THOMPSON MD Finalized Date/Time: 09/29/18 15:47:14 Pt. Name: FADI MELINDA WOODY /Sex: 1975 Female Med Rec #: [id number] Physician: SAMAN THOMPSON MD Financial #: [id number] Pt. Type: O Room/Bed: [facility]/ Admit/Disch: 09/29/18 11:27:00 - Institution: [facility] IntraOp Case Attendance Entry 1 Entry 2 Entry 3 Case Attendee DONNA, SAMAN, MD ZARAK, NATE, MD MYRON, STEPHANIE A, NA Role Performed Surgeon/Proceduralist, Surgeon/Proceduralist, LIEUTENANT SHIFT SUPERVISOR/Nurse Tapper Operator First Second Time In 09/29/18 14:23:00 09/29/18 [...] PERSON, Angelia Mejia, Scrub JAMIE CAST, Tech Director Of Ancillary Services Role Performed Metallurgical Inspector, First Scrub, First Scrub, Second Time In [...] Holliday, Stewart R, RN KEVON HINES V, LIEUTENANT SHIFT SUPERVISOR CARE Role Performed Charge Poster, Ancillary Metallurgical Inspector, Second LIEUTENANT SHIFT SUPERVISOR/Nurse Tapper Operator Time In 09/29/18 14:23:00 09/29/18 14:55:00 09/29/18 15:25:00 Time Out 09/29/18 15:47:00 09/29/18 15:12:00 09/29/18 15:47:00 Procedure Hernia Repair Hernia Repair Hernia Repair Paraesophageal Paraesophageal Paraesophageal Laparoscopi Laparoscopi Laparoscopi Other Attendee Superficial Wound Closed By: Last Modified By: ALPHONSE PERSON, ALPHONSE PRICE, ALPHONSE PRICE RN 09/29/18 15:47:11 09/29/18 15:13:17 09/29/18 15:47:11 [facility] IntraOp Case Attendance Audit 09/29/18 15:47:11 Security Escort: TIP Modifier: [email or web address] 1 <+> Time Out [...] Procedure Hernia Repair Paraesophageal Laparoscopi 09/29/18 15:26:01 Security Escort: TIP Modifier: [email or web address] 3 <+> Time Out 3 <*> Procedure Hernia Repair Paraesophageal Laparoscopi <+> 9 Case Attendee <+> 9 Role Performed <+> 9 Time In <+> 9 Procedure 09/29/18 15:13:17 Security Escort: TIP Modifier: [email or web address] 1 <*> Procedure Hernia [...] [facility] IntraOp Case Times Audit 09/29/18 15:47:10 Security Escort: [email or web address] Modifier: [email or web address] <+> 1 Out Room Time <+> 1 Stop Time 09/29/18 15:41:42 Security Escort: [email or web address] Modifier: [email or web address] <+> 1 Stop Time [facility] IntraOp Cautery Entry 1 ESU Identification Cautery Type Monopolar ESU ID Number [id number] ID Type Hospital Number Cautery Settings Cut [...] [facility] IntraOp Counts Final Audit 09/29/18 15:33:34 Security Escort: TIP Modifier: TIP 1 <*> Procedure Hernia [...] Dressing Item 2x2's Applied By Angelia Mayers Director Of Ancillary Services Other Comments 2X2 COVAERMS TO TROCAR SITES [...] RN 09/29/18 14:47:50 [facility] IntraOp General Case Automotive Detailer 1 Case Information OR OR 03 [facility] [...] Other Implant TISSUE REINF FLAT SHT Identification [id number] Description Implant Quantity 1 Implant Site OPSITE Implant [id number] Identification Serial Number Implant [employer]:Med Prdt Identification Kraft Digester Operator Name: Implant [id number] Identification Catalog Number Implant Has an Yes [...] to extraneous objects Last Modified By: ALPHONSE PRESON RN 09/29/18 14:49:42 [facility] Intra Op Sign Out Audit 09/29/18 15:47:07 Security Escort: TIP Modifier: [email or web address] <+> 1 RN Sign Out Signature Date/Time [facility] IntraOp Skin Prep Entry 1 Procedure Hernia Repair Paraesophageal Laparoscopi Prescribed Yes Pre-Surgical Prep Completed Prep Area ABDOMEN Intraop Prep Integumentary WDL Assessment WDL Prep Agents Chloraprep Prep by LAPHONSE PERSON RN Hair Removal Methods No hair [...] [facility] IntraOp Surgical Procedures Audit 09/29/18 15:41:43 Security Escort: TIP Modifier: TIP <+> 1 Stop [facility] [...]
--- OUTSIDE RECORDS SUMMARY | 2024-10-23 12:08 | XMS_ITS | Encounter Summary ---
Author Organization [employer] ([place], [place], [place], [place]) Address [address] [place] [address] Care Team Providers Care Writer Producer Name Role Phone Unavailable Primary Care Provider Unavailabl e Encounter Details Date Type Department Care Team (Late st Contact Info) Description 03/26/2021 Transcribed Document [facility] Family Medicine [address] [place] [address] ProviderLeyda MD [address] [place], [place] [phone] Social History Tobacco Use Types Packs/Day Years [...] Date Tyrone rded Speak language other than Dominican at home Not on file 03/25/2023 Want [...] - Historical ProviderMD - 03/26/2021 11:01 AM INSIDE SALES [facility] Main OR IntraOp Summary Primary Physician: MARY TOMAS MD-SUR Finalized Date/Time: 03/27/21 12:48:54 Pt. Name: MELINDA APOTNE /Sex: 1975 Female Med Rec #: [id number] Physician: MARY TOMAS MD-SUR Financial #: [id number] Pt. Type: O Room/Bed: Admit/Disch: 03/26/21 08:37:00 - 03/26/21 14:25:00 Institution: [facility] IntraOp Case Attendance Entry 1 Entry 2 Entry 3 Case Attendee MARY TOMAS MD-SUR Chiavetta, Michelle BOWEN, JON B, MD-ANS , Non Emp METAL CONTAINER MAKER Role Performed Surgeon/Proceduralist, METAL CONTAINER MAKER/Nurse Brim Pouncer Machine Operator Anesthesiologist of First Record Time [...] Amber, Rn Pantano, Scott, RN Role Performed Distribution Lead, First Call Center Manager, First Call Center Manager, Second Time In 03/26/21 10:33:00 03/26/21 10:33:00 03/26/21 10:33:00 Time Out 03/26/21 11:48:00 03/26/21 11:48:00 03/26/21 11:48:00 Procedure Cholecystectomy Cholecystectomy Cholecystectomy Laparoscopic Laparoscopic Laparoscopic Other Attendee Superficial Wound Closed By: Last Modified By: Faustino Kline, Faustino Jameson, Faustino Jameson, KOLE 03/26/21 11:48:56 03/26/21 11:48:56 03/26/21 11:48:56 Entry 7 Entry 8 Case Attendee MAGED HERNANDEZ, SCRUB TAHIRA CELIS SSI TECH Role Performed Scrub, First Professor Of Surgery, Ancillary Time In 03/26/21 10:33:00 03/26/21 10:33:00 Time Out 03/26/21 11:48:00 03/26/21 11:48:00 Procedure Cholecystectomy Cholecystectomy Laparoscopic Laparoscopic Other Attendee Superficial Wound Closed By: Last Modified By: Faustino Kline, RN Faustino Kline RN 03/26/21 11:48:56 03/26/21 11:48:56 [facility] IntraOp Case Attendance Audit 03/26/21 11:48:56 Box Truck Driver: PANTANOS Modifier: PANTANOS 1 <+> Time Out [...] 8 <*> Procedure Cholecystectomy Laparoscopic 03/26/21 10:45:18 Box Truck Driver: PANTANOS Modifier: PANTANOS <+> 1 Procedure 2 [...] Time In 8 <*> Procedure Cholecystectomy Laparoscopic [facility] IntraOp Case Times Entry 1 Patient In Room Time 03/26/21 10:33:00 Out Room Time 03/26/21 11:48:00 Anesthesia Start Time 03/26/21 10:33:00 Stop Time 03/26/21 11:48:00 Surgery / Procedure Times Start Time 03/26/21 11:01:00 Stop Time 03/26/21 11:45:00 Last Modified By: Faustino Kline RN 03/26/21 11:48:40 [facility] IntraOp Case Times Audit 03/26/21 11:48:40 Box Truck Driver: PANTANOS Modifier: PANTANOS <+> 1 Out Room Time <+> 1 Stop Time 03/26/21 11:48:07 Box Truck Driver: PANTANOS Modifier: PANTANOS <+> 1 Stop Time 03/26/21 11:01:12 Box Truck Driver: PANTANOS Modifier: PANTANOS <+> 1 Start Time [facility] IntraOp Cautery Entry 1 ESU Identification Cautery Type Monopolar ESU ID Number [id number] ID Type Hospital Number Cautery Settings Cut Setting 1 Coag Setting 30 ESU Grounding Pad Ground Pad Type Reusable electrode pad Grounding Pad Site Posterior Grounding Pad Estrella Hernandez Rn Applied By Grounding Pad Site Warm, dry and intact Skin Condition Before Cautery Grounding Pad Site Warm, dry and intact Skin Condition After Cautery Last Modified By: Faustino Kline RN 03/26/21 10:43:58 [facility] IntraOp Communication Entry 1 Communication To Family/Significant other Comment LEFT [facility] Communication By Estrella Hernandez Rn Date and Time 03/26/21 11:05:00 Last Modified By: Faustino Kline RN 03/26/21 11:05:36 [facility] IntraOp Communication Audit 03/26/21 11:05:36 Box Truck Driver: PANTANOS Modifier: PANTANOS <+> 1 Date and Time <+> 1 Comment [facility] IntraOp Counts Verification Entry 1 Procedure Cholecystectomy Laparoscopic Count Info Count Type Sponge, Sharps, Instrument, Miscellaneous Counts Verification Baseline/pre-procedure Sequence Count Results Correct, surgeon notified Counts Performed By Count Performed By MAGED HERNANDEZ SCRUB (Scrub) TECH Count Performed By Faustino Kline RN (RN) Last Modified By: Faustino Kline RN 03/26/21 10:43:00 [facility] IntraOp Counts Final Entry 1 Procedure Cholecystectomy Laparoscopic Final Count Info Count Type Sponge, Sharps, Miscellaneous Counts Verification Skin Closure/end of Sequence procedure Count Results Correct, surgeon notified Counts Performed By Count Performed By MAGED HERNANDEZ SCRUB (Scrub) TECH Count Performed By Estrella Hernandez Rn (RN) Last Modified By: Faustino Kline RN 03/26/21 10:43:15 [facility] IntraOp Cultures and Spec Summary Entry 1 Cultrures and Specimens Specimen Ordered: Yes Test(s) Routine/Path-Lab Requested/Final Disposition Last Modified By: Faustino Kline RN 03/26/21 10:44:02 [facility] IntraOp Departure from OR Entry 1 Integumentary Assessment Integumentary WDL with patient Assessment WDL specific variances Patient's Normal Surgical incisions = Integumentary Abdomen Variance(s) Transfer/Handoff Transfer to PACU Phase I Handoff Method Phone call Post-op Transport Stretcher/Gurney Via Patient Transport Abelardo Mora ST, Accompanied by Nitza Cameron Non Emp METAL CONTAINER MAKER Last Modified By: Faustino Kline RN 03/26/21 10:46:25 [facility] IntraOp Dressing and Packing Entry 1 Type Dressing Location Abdomen Wound Dressing Item Skin Closure Glue Applied By Abelardo Mora ST Other Comments Dermabond Last Modified By: Faustino Kline RN 03/26/21 10:44:58 [facility] IntraOp Fire Risk Assessment Entry 1 [...] Modified By: Faustino Kline RN 03/26/21 10:44:19 [facility] IntraOp General Case Synchronizer 1 Case Information OR OR 08 [facility] Case Level 1 Room Verified Yes Wound Class 2 - Clean-Contaminated Specialty General Anesthesia Type General ASA Class 2 Diagnosis Preop Diagnosis CHOLECYSTITIS Postop Same As Preop Yes Postop Diagnosis CHOLECYSTITIS Wound Class Definitions Last Modified By: Faustino Kline RN 03/26/21 10:45:09 [facility] IntraOp General Case Data Audit 03/26/21 10:45:09 Box Truck Driver: TERESSA Modifier: TERESSA <+> 1 Wound Class [facility] IntraOp Intraoperative Assessment Entry 1 Handoff Method Online nursing summary Valid History / Yes Physical in Chart Preoperative Yes Checklist Reviewed/Evaluated Allergies Reviewed Yes Patient is Latex No Sensitive Level of WDL Consciousness (WDL = Alert, Oriented to Person, Place, and Time) Skin Assessment Yes Verified Present Upon IVs Arrival to OR Last Modified By: Faustino Kline RN 03/26/21 10:46:11 [facility] IntraOp Intraoperative Equipment Entry 1 Type [...] Modified By: Faustino Kline RN 03/26/21 10:45:59 [facility] IntraOp Medication Admin Entry 1 Medication/Irrigant Marcaine 0.5% w/ epinephrine 1:200,000 30ml vial - [id number] Route of Local Administration Dose Dose 18 Unit of Measure ml Administered By MARY TOMAS MD-SUR Procedure Irrigation Last Modified By: Faustino Kline RN 03/26/21 10:45:31 [facility] IntraOp Patient Positioning Entry 1 Procedure [...] Mora, , Rakesh, Nitza , Non Emp METAL CONTAINER MAKER Position Verified Positioning Yes Verified by Anesthesia Positioning Yes Verified by Surgeon Last Modified By: Faustino Kline RN 03/26/21 10:45:16 [facility] IntraOp Sign In Entry 1 Patient, [...] Modified By: Faustino Kline RN 03/26/21 10:46:19 [facility] IntraOp Sign Out Entry 1 RN [...] Modified By: Faustino Kline RN 03/26/21 11:48:51 [facility] IntraOp Sign Out Audit 03/26/21 11:48:51 Box Truck Driver: TERESSA Modifier: PANTANOS <+> 1 RN Sign Out Signature Date/Time [facility] IntraOp Skin Prep Entry 1 Procedure Cholecystectomy Laparoscopic Prescribed Yes Pre-Surgical Prep Completed Prep Area ABDOMEN Intraop Prep Prep Agents Chloraprep Prep by MARY TOMAS MD-JIMY Hair Removal Methods No hair removal performed Last Modified By: Faustino Kline RN 03/26/21 10:44:52 [facility] IntraOp Surgical Procedures Entry 1 Procedure Cholecystectomy Laparoscopic Additional (LAP CHOLECYSTECTOMY Procedure WITH POSSIBLE IOC) Description Primary Procedure Yes Primary Surgeon MARY TOMAS MD-JIMY Start 03/26/21 11:01:00 Stop 03/26/21 11:45:00 Anesthesia Type General Specialty General Wound Class 2 - Clean-Contaminated Last Modified By: Faustino Kline RN 03/26/21 11:48:31 [facility] IntraOp Surgical Procedures Audit 03/26/21 11:48:31 Box Truck Driver: TERESSA Modifier: PANTANOS 1 <*> Procedure Cholecystectomy Laparoscopic 1 <+> Wound Class 03/26/21 11:48:18 Box Truck Driver: TERESSA Modifier: PANTANOS <+> 1 Stop 03/26/21 11:01:21 Box Truck Driver: TERESSA Modifier: TERESSA <+> 1 Start [facility] IntraOp Temp Regulation Devices Entry 1 Temp Regulation Temperature Warm blankets, Forced Regulation Device Air Warming device, Room temperature Temperature Upper body Regulation Site Temperature Chiavetta Nitza Regulation Device , Non Emp METAL CONTAINER MAKER Applied by Last Modified By: Faustino Kline RN 03/26/21 10:45:37 [facility] IntraOP Time Out Entry 1 Procedure [...] Modified By: Faustino Kline RN 03/26/21 11:01:08 [facility] IntraOP Time Out Audit 03/26/21 11:01:08 Box Truck Driver: TERESSA Modifier: TERESSA 1 <+> Time Out Pause Time 1 <*> Procedure to be Performed Cholecystectomy Laparoscopic Case Comments <None> Finalized By: HERBERT DRISCOLL Document Signatures Signed By: Faustino Kline RN 03/26/21 11:49 HERBERT DRISCOLL 03/27/21 12:48 Unfinalized History Date/Time Username Reason for Unfinalizing Freetext Reason for Unfinalizing 03/27/21 12:47 [email or web address] Correct Billing Electronically signed by Serafin [facility] Conversion Elementary Ell Teacher Cerner at 06/22/2022 9:12 AM CDT documented in this encounter Plan of Treatment Not on file documented as of this encounter Visit Diagnoses Not on filedocumented in this encounter
--- OUTSIDE RECORDS SUMMARY | 2024-10-23 12:08 | XMS_ITS | Encounter Summary ---
Author Organization [employer] ([place], [place], [place], [place]) Address [address] [place] [address] Care Team Providers Care Deal Architect Name Role Phone Unavailable Primary Care Provider Unavailabl e Encounter Details Date Type Department Care Team (Late st Contact Info) Description 03/26/2021 Transcribed Document [facility] Family Medicine [address] [place] [address] ProviderLeyda MD [address] [place], [place] [phone] Social History Tobacco Use Types Packs/Day Years [...] Date Tyrone rded Speak language other than Australian at home Not on file 03/25/2023 Want [...] - Historical ProviderMD - 03/26/2021 11:01 AM RENTAL CAR PORTER [facility] Main OR Preop Summary Primary Physician: MARY TOMAS MD-SUR Finalized Date/Time: 03/26/21 12:33:31 Pt. Name: MELINDA APONTE /Sex: 1975 Female Med Rec #: [id number] Physician: MARY TOMAS MD-SUR Financial #: [id number] Pt. Type: O Room/Bed: Admit/Disch: 03/26/21 08:37:00 - Institution: [facility] PreOp Case Times Entry 1 In Preop 03/26/21 08:56:00 Ready for Holding n/a Room Patient Ready for 03/26/21 10:22:00 Surgery Patient Out of Preop 03/26/21 10:31:00 Patient Out of n/a Holding Room Last Modified By: Linda May Rn 03/26/21 12:33:29 [facility] PreOp Case Times Audit 03/26/21 12:33:29 Executive Assistant: REYNA Modifier: MFWARD <+> 1 Patient Out of Preop 03/26/21 10:22:05 Executive Assistant: MFWARD Modifier: MFWARD <+> 1 Patient Ready for Surgery Finalized By: Linda May Rn Document Signatures Signed By: Linda May Rn 03/26/21 12:33 Electronically signed by Serafin [facility] Conversion Correctional Sergeant Cerner at 06/22/2022 9:24 AM CDT documented in this encounter Plan of Treatment Not on file documented as of this encounter Visit Diagnoses Not on filedocumented in this encounter
--- OUTSIDE RECORDS SUMMARY | 2024-10-23 12:08 | XMS_ITS | Encounter Summary ---
Author Organization [employer] ([place], [place], [place], [place]) Address [address] [place] [address] Care Team Providers Care Ibm Bpm Architect Name Role Phone Unavailable Primary Care Provider Unavailabl e Encounter Details Date Type Department Care Team (Late st Contact Info) Description 09/29/2018 Transcribed Document [facility] [place] [address] [place] [address] ProviderLeyda MD [facility] [place], [place] [address] Social History Tobacco Use Types Packs/Day Years [...] APONTE /Sex: 1975 Female Med Rec #: [id number] Physician: SAMAN THOMPSON MD Financial #: [id number] Pt. Type: O Room/Bed: [facility]/ Admit/Disch: 09/29/18 11:27:00 - Institution: [facility] Main OR PACU Case Times Entry 1 In PACU I 09/29/18 15:48:00 Ready for PACU 09/29/18 16:45:00 Discharge Discharge from PACU 09/29/18 17:10:00 I Last Modified By: Michelle Toribio Rn Patient Care Bedside 09/29/18 17:01:52 [facility] Main OR PACU Case Times Audit 09/29/18 17:17:13 Grapple Skidder Operator: SCOUT Modifier: [email or web address] <+> 1 Discharge from PACU I 09/29/18 17:01:52 Grapple Skidder Operator: SCOUT Modifier: SHERRYTIPTON <+> 1 Ready for PACU Discharge [facility] Main OR PACU Acuity Entry 1 Start Time 09/29/18 16:45:00 Stop Time 09/29/18 17:10:00 Acuity Level [facility] PACU Acuity I Last Modified By: Michelle Toribio Rn Patient Care Bedside 09/29/18 17:01:58 [facility] Main OR PACU Acuity Audit 09/29/18 17:17:22 Grapple Skidder Operator: SCOUT Modifier: [email or web address] <+> 1 Stop Time Finalized By: Michelle Toribio Rn Patient Care Bedside Document Signatures Signed By: Michelle Toribio Rn Patient Care Bedside 09/29/18 17:17 documented in this encounter Plan of Treatment Not on file documented as of this encounter Visit Diagnoses Not on filedocumented in this encounter
--- OUTSIDE RECORDS SUMMARY | 2024-10-23 12:08 | XMS_ITS | Encounter Summary ---
Author Organization [employer] ([place], [place], [place], [place]) Address [address] [place] [address] Care Team Providers Care Business Affairs Manager Name Role Phone Unavailable Primary Care Provider Unavailabl e Encounter Details Date Type Department Care Team (Late st Contact Info) Description 09/30/2018 Transcribed Document [facility] Family Medicine [address] [place] [address] ProviderLeyda MD [address] [place] [address] Social History Tobacco Use Types Packs/Day Years [...] Kelly Martines RN - 09/30/2018 13:40 EDT Electronically signed by Ernesto Betancourt Conversion Sweatband Cutting Machine Operator Hali at 06/22/2022 9:16 AM CDT documented in this encounter Plan of Treatment Not on file documented as of this encounter Visit Diagnoses Not on filedocumented in this encounter
--- OUTSIDE RECORDS SUMMARY | 2024-10-23 12:08 | XMS_ITS | Encounter Summary ---
Author Organization [employer] ([place], [place], [place], [place]) Address [address] [place] [address] Care Team Providers Care Steamfitter Supervisor Name Role Phone Unavailable Primary Care Provider Unavailabl e Encounter Details Date Type Department Care Team (Late st Contact Info) Description 09/04/2019 Transcribed Document [facility] Family Medicine [address] [place] [address] ProviderLeyda MD [address] [place] [address] Social History Tobacco Use Types Packs/Day Years [...] Source : Stated Height Entry Format : [place] Height, Feet : 5 ft(Converted to: 152 cm, 60 Inch) Height, Inches : 1 Inch(Converted to: 0 ft 1 Inch, 2.54 cm) Clinical Height : 154.94 cm Weight Source : Standing scale Weight Entry Format : [place] Clinical Dosing Weight : 80.18 kg Weight, Pounds : 176.4 lb Body Surface Area (BSA) : 1.79 m2 Body Mass Index : 33.4 kg/m2 (HI) [place] Body Weight : 47 kg Seema Sheriff RN - 09/04/2019 9:11 EDT Health Histories Smoking Status : Never (less than 100 in lifetime; none in last 30 days) Smokeless Tobacco Status : Never Implant/Device Type, Green Pipefitter and Model : laurenceteddy Seema Sheriff RN [...] Seema Sheriff RN - 09/04/2019 9:11 EDT Page Suicide Severity Rating Scale (C-SSRS) CSSRS Past [...] #2 Relationship : na Primary Language : Rwandan Preferred Communication Mode : Verbal Communication Barrier : None Occupational Health Physiotherapist Needed : No Seema Sheriff RN - [...] Scale Risk Level : 25-45 Medium Risk [place] Fall Interventions : Bed in low position, [...]
--- OUTSIDE RECORDS SUMMARY | 2024-10-23 12:08 | XMS_ITS | Encounter Summary ---
Author Organization [employer] ([place], [place], [place], [place]) Address [address] [place] [address] Care Team Providers Care Oil Burner Journeyman Name Role Phone Unavailable Primary Care Provider Unavailabl e Encounter Details Date Type Department Care Team (Late st Contact Info) Description 09/30/2018 Transcribed Document [facility] Family Medicine [address] [place] [address] ProviderLeyda MD [address] [place] [address] Social History Tobacco Use Types Packs/Day Years Used Date Smoking Tobacco: Never Assessed Comments Unknown Sex and Gender Information Value Date Recorded Sex Assigned at Not on file Legal Sex Female 6:21 PM CDT Gender Identity Not on file Sexual Orientation Not on file documented as of this encounter Miscellaneous Notes * Cerner Conversion Note - Leyda ProviderMD - 09/30/2018 2:00 AM CDT Perinatal Nurse Details Entered On: 09/30/2018 0:46 EDT Performed [...]
--- OUTSIDE RECORDS SUMMARY | 2024-10-23 12:08 | XMS_ITS | Encounter Summary ---
Author Organization [employer] ([place], [place], [place], [place]) Address [address] [place] [address] Care Team Providers Care Malt Specifications Control Assistant Name Role Phone Unavailable Primary Care Provider Unavailabl e Encounter Details Date Type Department Care Team (Late st Contact Info) Description 09/04/2019 Transcribed Document [facility] [place] Family Medicine [address] [place] [address] ProviderLeyda MD [address] [place] [address]851 Social History Tobacco Use Types Packs/Day Years Used Date Smoking Tobacco: Never Assessed Comments Unknown Sex and Gender Information Value Date Recorded Sex Assigned at Not on file Legal Sex Female 6:21 PM CDT Gender Identity Not on file Sexual Orientation Not on file documented as of this encounter Miscellaneous Notes * Cerner Conversion Note - Leyda ProviderMD - 09/04/2019 9:45 AM CDT [facility] Endo IntraOp Summary Primary Physician: ZINA STEELE MD-GAE Finalized Date/Time: 09/26/19 10:38:41 Pt. Name: FADI MELINDA WOODY /Sex: 1975 Female Med Rec #: [id number] Physician: ZINA STEELE MD-GAE Financial #: [id number] Pt. Type: O Room/Bed: END/ Admit/Disch: 09/04/19 08:25:00 - 09/04/19 16:27:00 Institution: [facility] Endo - Case Attendance Entry 1 Entry 2 Entry 3 Case Attendee ZINA STEELE MD-GAE MILLER, MELISSA A, RN WURTELE, MARY L. Role Performed Surgeon/Proceduralist, City Planning Teacher, First Scrub, First First Time In 09/04/19 [...] MARIE LYNNETTE, CRNA Role Performed Anesthesiologist of [employer] SERVICES/Nurse Improvement Auditor Record Time In 09/04/19 09:37:00 09/04/19 09:37:00 Time Out 09/04/19 09:54:00 09/04/19 09:54:00 Procedure Esophagogastroduodenosco Esophagogastroduodenosco py, Esophageal Biopsy py, Esophageal Biopsy Other Attendee Superficial Wound Closed By: Last Modified By: STEPHENIE EVANGELISTA RN MILLER, MELISSA A, RN 09/04/19 09:52:13 09/04/19 09:52:13 [facility] Endo - Case Attendance Audit 09/04/19 09:52:13 Building Service Worker: KARLY Modifier: [email or web address] 1 <+> Time Out 1 <*> Procedure Esophagogastroduodenoscopy, Esophageal Biopsy 2 <+> Time Out 2 <*> Procedure Esophagogastroduodenoscopy, Esophageal Biopsy 3 <+> Time Out 3 <*> Procedure Esophagogastroduodenoscopy, Esophageal Biopsy 4 <+> Time Out 4 <*> Procedure Esophagogastroduodenoscopy, Esophageal Biopsy 5 <+> Time Out 5 <*> Procedure Esophagogastroduodenoscopy, Esophageal Biopsy 09/04/19 09:49:17 Building Service Worker: KARLY Modifier: TONJAMA 1 <+> Time In 1 <*> Procedure Esophagogastroduodenoscopy 2 <+> Time In 2 <*> Procedure Esophagogastroduodenoscopy 3 <+> Time In 3 <*> Procedure Esophagogastroduodenoscopy 4 <+> Time In 4 <*> Procedure Esophagogastroduodenoscopy 5 <+> Time In 5 <*> Procedure Esophagogastroduodenoscopy 09/04/19 09:38:36 Building Service Worker: KARLY Modifier: KARLY <+> 2 Case Attendee <+> 2 Role Performed <+> 2 Procedure <+> 3 Case Attendee <+> 3 Role Performed <+> 3 Procedure <+> 4 Case Attendee <+> 4 Role Performed <+> 4 Procedure <+> 5 Case Attendee <+> 5 Role Performed <+> 5 Procedure [facility] Endo - Case times Entry 1 Patient In Room Time 09/04/19 09:37:00 Out Room Time 09/04/19 09:54:00 Anesthesia Start Time 09/04/19 09:37:00 Stop Time 09/04/19 09:54:00 Surgery / Procedure Times Start Time 09/04/19 09:45:00 Stop Time 09/04/19 09:51:00 Last Modified By: STEPHENIE EVANGELISTA RN 09/04/19 09:52:02 [facility] Endo - Case times Audit 09/04/19 09:52:02 Building Service Worker: KARLY Modifier: KARLY <+> 1 Out Room Time <+> 1 Stop Time <+> 1 Stop Time 09/04/19 09:45:29 Building Service Worker: KARLY Modifier: KARLY <+> 1 Start Time [facility] Endo - Cultures and Spec Summary Entry 1 Cultrures and Specimens Specimen Ordered: Yes Test(s) Routine/Path-Lab Requested/Final Disposition Last Modified By: STEPHENIE EVANGELISTA RN 09/04/19 09:49:51 [facility] Endo - Delays Entry 1 Delay Reason Other, No Delay Duration 0 Minute(s) Last Modified By: STEPHENIE EVANGELISTA RN 09/04/19 09:38:45 [facility] Endo - Departure from OR Entry 1 Integumentary Assessment Integumentary WDL Assessment WDL Transfer/Handoff Transfer to PACU Phase I Handoff Method Bedside/Face to face Post-op Transport Stretcher/Gurney Via Patient Transport STEPHENIE EVANGELISTA RN, Accompanied by EMMANUEL RAYMOND CRNA Last Modified By: STEPHENIE EVANGELISTA RN 09/04/19 09:38:48 [facility] Endo - Endoscopy Details Entry 1 Abdomen Procedure Soft, Non-Tender Assessment Procedure Abdomen 09/04/19 09:38:00 Assessment D/T Radio Frequency Ablation Abdominal Pressure Last Modified By: STEPHENIE EVANGELISTA RN 09/04/19 09:38:52 [facility] Endo - Fire Risk Assessment [...] Modified By: STEPHENIE EVANGELISTA RN 09/04/19 09:38:54 [facility] Endo - General Case Associate Professor Of Geography 1 Case Information OR Endo [facility] Case Level 1 Room Verified Yes Wound Class II - Clean-Contaminated Specialty SN Gastroenterology Anesthesia Type General ASA Class 2 Diagnosis Preop Diagnosis hx of barretts Postop Same As Preop Yes Postop Diagnosis hx of barretts Last Modified By: STEPHENIE EVANGELISTA RN 09/04/19 09:39:11 [facility] Endo - Intraoperative Assessment Entry 1 Valid History / Yes Physical in Chart Preoperative Yes Checklist Reviewed/Evaluated Patient is Latex No Sensitive Level of WDL Consciousness (WDL = Alert, Oriented to Person, Place, and Time) Last Modified By: STEPHENIE EVANGELISTA RN 09/04/19 09:39:12 [facility] Endo - Intraoperative Equipment Entry 1 Equipment Intraop Monitoring Electrocardiogram Three lead placement (ECG) Electrode Placement Blood Pressure Arm, left upper Location Pulse Oximeter Hand, right Probe Site Antiembolic Devices Scopes Flexible Endoscopes Gastroscope Used Scope Serial A Number/Identificatio n Number Photo/Video Documentation Photo Yes Video No Last Modified By: STEPHENIE EVANGELISTA RN 09/04/19 09:39:20 [facility] Endo - Intraoperative Equipment Audit 09/04/19 09:39:20 Building Service Worker: KARLY Modifier: KARLY <+> 1 Photo <+> 1 Video <+> 1 Blood Pressure Location <+> 1 Pulse Oximeter Probe Site <+> 1 Flexible Endoscopes Used <+> 1 Scope Serial Number/Identification Number [facility] Endo - Patient Positioning Entry [...] Modified By: STEPHENIE EVANGELISTA RN 09/04/19 09:49:18 [facility] Endo - Patient Positioning Audit 09/04/19 09:49:18 Building Service Worker: KARLY Modifier: KARLY 1 <*> Procedure Esophagogastroduodenoscopy [facility] Endo - Sign In Entry 1 Patient, Site, Yes Procedure Identified Surgical Consent Yes Confirmed Surgical Site N/A Marked by person performing procedure Airway Hypothermia Risk No Warming Measures No Taken Last Modified By: STEPHENIE EVANGELISTA RN 09/04/19 09:39:28 [facility] Endo - Sign Out Entry [...] Modified By: STEPHENIE EVANGELISTA RN 09/04/19 09:52:08 [facility] Endo - Surgical Procedures Entry [...] MELISSA A, RN 09/04/19 09:52:11 09/04/19 09:52:11 [facility] Endo - Surgical Procedures Audit 09/04/19 09:52:11 Building Service Worker: KARLY Modifier: MILLERMA <+> 1 Stop <+> 2 Stop 09/04/19 09:49:16 Building Service Worker: KARLY Modifier: MILLERMA <+> 2 Procedure <+> 2 Primary Procedure <+> 2 Primary Surgeon <+> 2 Specialty <+> 2 Start <+> 2 Wound Class <+> 2 Anesthesia Type <+> 2 Additional Procedure Description 09/04/19 09:45:40 Building Service Worker: KARLY Modifier: TONJAMA <+> 1 Start [facility] Endo - Time Out Entry [...] Modified By: STEPHENIE EVANGELISTA RN 09/04/19 09:49:18 [facility] Endo - Time Out Audit 09/04/19 09:49:18 Building Service Worker: KARLY Modifier: KARLY 1 <*> Procedure to [...]
--- OUTSIDE RECORDS SUMMARY | 2024-10-23 12:08 | XMS_ITS | Encounter Summary ---
Author Organization [employer] ([place], [place], [place], [place]) Address [address] [place] [address] Care Team Providers Care Social Insurance Administrator Name Role Phone Unavailable Primary Care Provider Unavailabl e Encounter Details Date Type Department Care Team (Late st Contact Info) Description 10/06/2018 Transcribed Document [facility] [address] ProviderLeyda MD [address] [place] [address] Social History Tobacco Use Types Packs/Day Years [...] Laparoscopic Toupet fundoplication. SURGEON: Daniel Jang MD CREATIVE SERVICES MANAGER: Marcel OPERATION/PROCEDURE DESCRIPTION: After obtaining informed consent, [...] esophagus and the anesthesiologist then advanced a 56-Tongan bougie through the mouth, through the stomach, [...]
--- OUTSIDE RECORDS SUMMARY | 2024-10-23 12:08 | XMS_ITS | Clinical Summary ---
Author Organization [facility] Address [address] [place] [address] Care Team Providers Care Snow Removing Supervisor Name Role Phone Ward Somers MD Unavailable [phone] Bill Lamar MD Primary Care Provider [phone] Allergies Active Allergy Reactions Criticality Noted Date Comments Lamotrigine Hives,Itching,Palpit atio ns High 08/31/2021 Other Reaction(s): Not available [place] Hives Low 10/28/2021 Other Reaction(s): Not available, Other - please document in the comment field Swollen neck Swollen neck Medications acetaminophen (Tylenol 8 Hour) 650 MG ER tablet Take 650 mg by mouth every 8 (eight) hours if needed. Active Collagen-[place]- Hyaluronic Acid (Move Free [place]) 40-5-3.3 MG tablet Active Cequa 0.09 % [...] screening Electronically Signed on04/29/2023 12:16 [facility] Pepe Green MD ENDOSCOPY PROCEDURE ORDERABLE S Final Result from Last 3 Months or Most Recently Relevant to Health Maintenance Insurance [facility] Care Teams Snow Removing Supervisor Relationship Specialty Start Date End Date Bill Lamar MD [address] [facility] [address] [place] [address] PCP - General Internal Medicine 07/07/22 Ward Somers MD [address] [facility] [place] [address] Referring Physician Gastroenterology 07/07/22
--- OUTSIDE RECORDS SUMMARY | 2024-10-23 12:08 | XMS_ITS | Encounter Summary ---
Author Organization [employer] ([place], [place], [place], [place]) Address [address] [place] [address] Care Team Providers Care Equity Manager Name Role Phone Unavailable Primary Care Provider Unavailabl e Encounter Details Date Type Department Care Team (Late st Contact Info) Description 09/30/2018 Transcribed Document [facility] [facility] [address] ProviderLeyda MD [address] [place] [address] Social History Tobacco Use Types Packs/Day Years [...]
--- OUTSIDE RECORDS SUMMARY | 2024-10-23 12:08 | XMS_ITS | Encounter Summary ---
Author Organization [employer] ([place], [place], [place], [place]) Address [address] [place] [address] Care Team Providers Care Russian Language Instructor Name Role Phone Unavailable Primary Care Provider Unavailabl e Encounter Details Date Type Department Care Team (Late st Contact Info) Description 03/26/2021 Transcribed Document [facility] Family Medicine [address] [place] [address] ProviderLeyda MD [address] [place], [place] [address]201 Social History Tobacco Use Types Packs/Day Years [...] Date Tyrone rded Speak language other than British at home Not on file 03/25/2023 Want [...] - Historical ProviderMD - 03/26/2021 11:01 AM FLAT SCREEN WORKER [facility] Main OR PACU Summary Primary Physician: MARY TOMAS MD-SUR Finalized Date/Time: 03/26/21 12:51:40 Pt. Name: MELINDA APONTE /Sex: 1975 Female Med Rec #: [id number] Physician: MARY TOMAS MD-SUR Financial #: [id number] Pt. Type: O Room/Bed: Admit/Disch: 03/26/21 08:37:00 - Institution: [facility] Main OR PACU I Case Times Entry 1 In PACU I 03/26/21 11:50:00 Ready for PACU 03/26/21 12:51:00 Discharge Discharge from PACU 03/26/21 12:51:00 I Last Modified By: YAIMA CHAPIN RN 03/26/21 12:51:07 Finalized By: YAIMA CHAPIN, RN Document Signatures Signed By: YAIMA CHAPIN RN 03/26/21 12:51 Electronically signed by Serafin [facility] Conversion Elementary Teacher Cerner at 06/22/2022 9:25 AM CDT documented in this encounter Plan of Treatment Not on file documented as of this encounter Visit Diagnoses Not on filedocumented in this encounter
--- OUTSIDE RECORDS SUMMARY | 2024-10-23 12:08 | XMS_ITS | Encounter Summary ---
Author Organization [employer] ([place], [place], [place], [place]) Address [address] [place] [address] Care Team Providers Care Box Truck Driver Name Role Phone Unavailable Primary Care Provider Unavailabl e Encounter Details Date Type Department Care Team (Late st Contact Info) Description 03/26/2021 Transcribed Document [facility] [place] [address] [place] [address] ProviderLeyda MD [address] [place], [place] [address] Social History Tobacco Use Types Packs/Day Years [...] Date Tyrone rded Speak language other than Uzbek at home Not on file 03/25/2023 Want [...] - Historical ProviderMD - 03/26/2021 9:40 AM PATHOLOGICAL TECHNICIAN Patient: MELINDA APONTE Age: 46 years Sex: [...] last week and neg) / SNOMED CT 27402571 / Confirmed Left bundle branch block / SNOMED CT 894225448 / Confirmed GERD (gastroesophageal reflux disease) / SNOMED CT 477354416 / Confirmed Constipation / SNOMED CT 17393897 / Confirmed Anxiety and depression / SNOMED CT 91430786 / Confirmed, Active Problems (5) Anxiety and depression Constipation GERD (gastroesophageal reflux disease) Hepatitis C (pt states tested last week and neg) Left bundle branch block Histories Past Medical History: Active Left bundle branch block (905180626) Anxiety and depression (37604043) Hepatitis C (pt states tested last week and neg) (85713476) Constipation (72655894) GERD (gastroesophageal reflux disease) (262793356) Family History: No family history items have been selected or recorded. Procedure history: . Hysterectomy (836666145). Colonoscopy (310090212). Esophagogastroduodenoscopy (495176114). Breast augmentation (1740564915). hernia repair. Social History Social & Psychosocial [...] EST Height Source Measured Height Entry Format Converse Height/Length, PERSIAN (ft) 5 ft Height/Length PERSIAN 1 Inch CLINICALHEIGHT 154.94 cm [place] Body Weight 47 kg Weight Source Standing scale Weight Entry Format Converse Weight Uzbek lb 178 lb Weight Uzbek oz 6 oz CLINICALWEIGHT 81.08 kg Body [...] of motion, Normal strength. Integumentary: Warm, Dry, [place]. Neurologic: Alert, Oriented. Psychiatric: Cooperative, Appropriate mood [...]
--- OUTSIDE RECORDS SUMMARY | 2024-10-23 12:09 | XMS_ITS | Encounter Summary ---
Author Organization [employer] ([place], [place], [place], [place]) Address [address] [place] [address] Care Team Providers Care Materials Mgmt Tech Name Role Phone Unavailable Primary Care Provider Unavailabl e Encounter Details Date Type Department Care Team (Late st Contact Info) Description 05/25/[address] [facility] [place] Family [place] [address] [place] [address] ProviderLeyda MD [facility] [place], [place] [address] Social History Tobacco Use Types Packs/Day Years [...] APONTE /Sex: 1975 Female Med Rec #: [id number] Physician: ZINA STEELE MD-GAE Financial #: [id number] Pt. Type: O Room/Bed: [facility]/ Admit/Disch: 05/25/18 12:46:00 - Institution: [facility] PreOp Case Times Entry 1 In Preop 05/25/18 13:03:00 Ready for Holding n/a Room Patient Ready for 05/25/18 13:34:00 Surgery Patient Out of Preop 05/25/18 13:34:00 Patient Out of n/a Holding Room [facility] PreOp Case Times Audit 05/25/18 13:34:42 Enrober Tender: DANI Modifier: DANI <+> 1 Patient Out of Preop <+> 1 Patient Ready for Surgery Finalized By: KAMALA MOISE RN Document Signatures Signed By: KAMALA MOISE RN 05/25/18 13:35 Electronically signed by Serafin [facility] Conversion Slab Tripper Cerner at 06/22/2022 9:23 AM CDT documented in this encounter Plan of Treatment Not on file documented as of this encounter Visit Diagnoses Not on filedocumented in this encounter
--- OUTSIDE RECORDS SUMMARY | 2024-10-23 12:09 | XMS_ITS | Encounter Summary ---
Author Organization [employer] ([place], [place], [place], [place]) Address [address] [place] [address] Care Team Providers Care Boom Master Name Role Phone Unavailable Primary Care Provider Unavailabl e Encounter Details Date Type Department Care Team (Late st Contact Info) Description 05/25/2018 Transcribed Document [facility] [place] Family [place] [address] [place] [address] ProviderLeyda MD [facility] [place], [place] [address] Social History Tobacco Use Types Packs/Day Years [...] APONTE /Sex: 1975 Female Med Rec #: [id number] Physician: ZINA STEELE MD-GAE Financial #: [id number] Pt. Type: O Room/Bed: [facility] Admit/Disch: 05/25/18 12:46:00 - 05/25/18 16:10:00 Institution: [facility] PACU Case Times Entry 1 In PACU I 05/25/18 15:03:00 Ready for PACU 05/25/18 16:16:00 Discharge Discharge from PACU 05/25/18 16:16:00 Kath [facility] PACU Case Times Audit 05/25/18 16:17:31 Business Law Instructor: [id number] Modifier: [id number] <+> 1 Ready for PACU Discharge <+> 1 Discharge from PACU I Finalized By: Nely Vitale Rn Document Signatures Signed By: Nely Vitale Rn 05/25/18 16:17 documented in this encounter Plan of Treatment Not on file documented as of this encounter Visit Diagnoses Not on filedocumented in this encounter
--- OUTSIDE RECORDS SUMMARY | 2024-10-23 12:09 | XMS_ITS | Clinical Summary ---
Author Organization [facility] Address [address] [place] [address] Care Team Providers Care Triage Clinician Name Role Phone Bill Lamar MD Primary Care Provider [phone] Allergies Active Allergy Reactions Criticality Noted Date Comments Lamotrigine Hives,Palpitations High 08/31/2021 [place] Other (See Comments) 10/28/2021 Swollen neck Medications acetaminophen (TYLENOL) 650 MG 8 hr tablet Active famotidine (PEPCID) 40 MG tablet Active [place]-Qxwab-Jftk Ac-Ca Fructo (Move Free Joint Health Advance) [...] Izabel Mckay Rheumatologic disease Paternal Grandmother Izabel Eric t Thyroid Ovarian cancer Neg Hx Relation [...] INFLUENZA VACCINE 12/05/2024 12/24/2023, , 01/19/2022 MAMMOGRAM 06/26/2025 06/27/2023, 06/06, 06/27/2023, Additional history exists COLONOSCOPY 01/08/2034 01/09/2024, 06/2023, 04/29/2023 COLORECTAL CANCER SCREENING 01/08/2034 COVID-19 Vaccine Completed 12/24/2023, , 12/12/2021, Additional history exists HEPATITIS C SCREENING Completed 01/09/2024 , 09/01/2021, 09/01/2021 Procedures Procedure Name Priority Date/Time Associated Diagnosis Comments MAMMO OUTSIDE FILMS Routine 06/27/2023 1 0:36 AM EDT H/O mammogram from Last 3 Months or Most Recently Relevant to Health Maintenance Results * MAMMO Outside Films (06/27/2023 10:36 AM EDT) Narrative SYSTEMGENERATED, DOCUMENTATION - 06/27/2023 10:36 AM EDT This procedure was auto-finalized with no dictation required. us Linnette Norton MD IMG MAMMOGRAPHY ORDERABLES F inal Result from Last 3 Months or Most Recently Relevant to Health Maintenance Insurance [facility] PPO Care Teams Triage Clinician Relationship Specialty Start Date End Date Bill Lamar MD PCP - General Internal Medicine 11/05/21
--- OUTSIDE RECORDS SUMMARY | 2024-10-23 12:09 | XMS_ITS | Encounter Summary ---
Author Organization [facility] Address [address] [place] [address] Care Team Providers Care Laborer Pole Crew Name Role Phone Bill Lamar MD Primary Care Provider Reason for Referral * Consultation (Routine) - Authorized Specialty Diagnoses / Procedures Referred By Wander aragon Referred To Contact Pulmonology Diagnoses Lung nodules Scleroderma (CMS/HCC) Mitul Garza MD [address] [place] [address] Phone: tel: fax: Mariam Urban MD [address] [place] [address] Phone: tel: fax: Referral ID Status Reason Start Date Expiration Date Visits Requested Visits Authorized [id number] Authorized Specialty Services Required 09/28/2024 03/30/2026 1 1 Encounter Details Date Type Department Care Team (Late st Contact Info) Description 09/28/2024 Orders Only [facility] [address] [place] [phone] Brittaney Morales, RN GS - Outpatient Center Lung nodules (Primary Dx); Scleroderma (CMS/HCC) Social History Tobacco Use Types Packs/Day Years [...] Info) Description 10/26/2024 10:10 AM EDT Consult [facility] [place] [address] [facility], [address] [place] [phone] 11/20/2024 10:00 AM EDT Office Visit [facility] [address], [address] [place] [phone] Sara Johnson, CAROLE [address] [place] [address] 01/08/2025 4:00 PM EST Office Visit [facility] [address], [address] [place] [address] Mitul Garza MD [address] [place] [address] 02/19/2025 9:00 AM EST Ancillary Procedure [place] [id number] [address] [phone] 02/19/2025 10:00 AM EST Office Visit [place] [id number] [address] [phone] Mariam Urban MD [address] [place] [address] Scheduled Referrals Name Type Priority Associated Diagnoses Order Schedule Ambulatory referral to Pulmonology Outpatient Referral Routine Lung nodules Scleroderma (CMS/HCC) Expected: 09/28/2024 (Approximate), Expires: 04/01/2026 documented as of this encounter Goals Goal Patient Goal Type Associated Problems Recent Progress Patient-Stated? Author Patient will verbalize understanding of orthotic wear , care and precautions. Occupational Therapy No Pat Bueno documented as of this encounter Visit Diagnoses Diagnosis Lung nodules- Primary Other diseases of lung, not elsewhere classified Scleroderma (CMS/HCC) Systemic sclerosis documented in this encounter Additional Health Concerns Assessment Noted Time PHQ-9 Depression Total Score: 0 09/28/19 3:19 PM EDT A fall risk assessment has been complete d for the patient 09/27/2024 3:19 PM EDT A Body Mass Index follow-up plan has been documented for the patient 09/29/2024 4:22 PM EDT documented as of this encounter Care Teams Laborer Pole Crew Relationship Specialty Start Date End Date Bill Lamar MD [address] [place] [address] PCP - General 04/13/22 documented as of this encounter
--- OUTSIDE RECORDS SUMMARY | 2024-10-23 12:09 | XMS_ITS | Encounter Summary ---
Author Organization Healthcare Address [address] [place] [address] Care Team Providers Care Purchasing Officer Name Role Phone Bill Lamar MD Primary Care Provider [phone] Encounter Details Date Type Department Care Team (Latest Contact Info) Description 10/06/2024 Travel Social History Tobacco Use Types Packs/Day [...] drink first t cyndie in the morning (EYE-MGMT ANALYST) to steady your nerves or to get [...] as of this encounter Functional Status * Calculated C-SSRS [...] Guaman RN documented as of this encounter Plan of Treatment Upcoming Encounters Date Type Department Care Team (Late st Contact Info) Description 10/26/2024 10:10 AM EDT Consult [facility] [address] [facility], [address] [place] [address] 11/20/2024 10:00 AM EDT Office Visit [facility] [place] [address] [facility], [address] [place] [address] Sara Johnson APRN [address] [place] [address] 01/08/2025 4:00 PM EST Office Visit [facility] [address] [facility], [address] [place] [address] Mitul Garza MD [address] [place] [address] 02/19/2025 9:00 AM EST Ancillary Procedure [facility] [address], [address] [place] [address] 02/19/2025 10:00 AM EST Office Visit [place] [address] [address] Mariam Urban MD [address] [place] [address] documented as of this encounter Goals Goal [...] documented as of this encounter Care Teams Purchasing Officer Relationship Specialty Start Date End Date Bill Lamar MD [address] [place] [address] PCP - General 04/13/22 documented as of this encounter
--- OUTSIDE RECORDS SUMMARY | 2024-10-23 12:09 | XMS_ITS | Encounter Summary ---
Author Organization Healthcare Address [address] [place] [address] Care Team Providers Care Marketing Systems Analyst Name Role Phone Bill Lamar MD Primary Care Provider [phone] Encounter Details Date Type Department Care Team (Latest Contact Info) Description 10/18/2024 Travel Social History Tobacco Use Types Packs/Day [...] drink first t cyndie in the morning (EYE-SENIOR SAS DEVELOPER) to steady your nerves or to get [...] Info) Description 10/26/2024 10:10 AM EDT Consult [facility] [address], 2nd [place] [address] 11/20/2024 10:00 AM EDT Office Visit [facility] [address], [address] [place] [address] Sara Johnson APRN [address] [place] [address] 01/08/2025 4:00 PM EST Office Visit [facility] [address] [facility] [address], [address] [place] [address] Mitul Garza MD [address] [place] [address] 02/19/2025 9:00 AM EST Ancillary Procedure [facility] [address], 2nd [place] [address] 02/19/2025 10:00 AM EST Office Visit [facility] [address], [facility] [place] [address] Mariam Urban MD [address] [place] [address] documented as of this encounter Goals Goal [...] documented as of this encounter Care Teams Marketing Systems Analyst Relationship Specialty Start Date End Date Bill Lamar MD [address] [place] [address] PCP - General 04/13/22 documented as of this encounter
--- OUTSIDE RECORDS SUMMARY | 2024-10-23 12:09 | XMS_ITS | Encounter Summary ---
Author Organization Healthcare Address [address] [place] [address] Care Team Providers Care Shoe Cutter Name Role Phone Bill Lamar MD Primary Care Provider [phone] Encounter Details Date Type Department Care Team (Latest Contact Info) Description 10/12/2024 Travel Social History Tobacco Use Types Packs/Day [...] drink first t cyndie in the morning (EYE-MEDICAL LABORATORY TECHNICIANS) to steady your nerves or to get [...] 10:10 AM EDT Consult [facility] Medicine Specialties [address], 2[address] [place] [address] 11/20/2024 10:00 AM EDT Office Visit [facility] [address] [facility], [address] [place] [address] Sara Johnson APRN [address] [place] [address] 01/08/2025 4:00 PM EST Office Visit [facility] [address] [facility] [address], [address] [place] [address] Mitul Garza MD [address] [place] [address] 02/19/2025 9:00 AM EST Ancillary Procedure [facility] Medicine Specialties [address], 2nd [place] [address] 02/19/2025 10:00 AM EST Office Visit [facility] Medicine Specialties [address], [facility] [place] [address] Mariam Urban MD [address] [place] [address] documented as of this encounter [...] documented as of this encounter Care Teams Shoe Cutter Relationship Specialty Start Date End Date Bill Lamar MD [address] [place] [address] PCP - General 04/13/22 documented as of this encounter
--- OUTSIDE RECORDS SUMMARY | 2024-10-23 12:09 | XMS_ITS | Encounter Summary ---
Author Organization [employer] ([place], [place], [place], [place]) Address [address] [place] [address] Care Team Providers Care Algorithm Design Engineer Name Role Phone Unavailable Primary Care Provider Unavailabl e Encounter Details Date Type Department Care Team (Late st Contact Info) Description 05/25/2018 Transcribed Document [facility] [place] [address] [place] [address] ProviderLeyda [place] [address] Social History Tobacco Use Types Packs/Day Years Used Date Smoking Tobacco: Never Assessed Comments Unknown Sex and Gender Information Value Date Recorded Sex Assigned at Not on file Legal Sex Female 6:21 PM CDT Gender Identity Not on file Sexual Orientation Not on file documented as of this encounter Miscellaneous Notes * Cerner Conversion Note - Leyda Calrk MD - 05/25/2018 3:22 PM CDT Nursing [...] EDT Electronically signed by Ernesto Betancourt Conversion Dovetail Machine Operator Cerner at 06/22/2022 9:16 AM CDT documented in this encounter Plan of Treatment Not on file documented as of this encounter Visit Diagnoses Not on filedocumented in this encounter
--- OUTSIDE RECORDS SUMMARY | 2024-10-23 12:09 | XMS_ITS | Encounter Summary ---
Author Organization [employer] ([place], [place], [place], [place]) Address [address] [place] [address] Care Team Providers Care Spinning Frame Cleaner Name Role Phone Unavailable Primary Care Provider Unavailabl e Encounter Details Date Type Department Care Team (Late st Contact Info) Description 09/29/2018 Transcribed Document [facility] Medicine [address] [place] [address] ProviderLeyda MD [place] [address] Social History Tobacco Use Types Packs/Day Years [...] Obtained From : Patient Primary Language : Japanese Preferred Communication Mode : Verbal Communication Barrier [...] Scale Risk Level : 25-45 Medium Risk [place] Fall Interventions : Adequate lighting, Assistive devices [...] Smokeless Tobacco Status : Never Implant/Device Type, Belt Sander Stone and Model : laurenceteddy Shahnaz Trujillo Rn [...] Source : Stated Height Entry Format : [place] Height, Feet : 5 ft(Converted to: 152 cm, 60 Inch) Height, Inches : 1 Inch(Converted to: 0 ft 1 Inch, 2.54 cm) Clinical Height : 154.94 cm Weight Source : Standing scale Weight Entry Format : [place] Clinical Dosing Weight : 79.55 kg Weight, Pounds : 175 lb Body Surface Area (BSA) : 1.79 m2 Body Mass Index : 33.1 kg/m2 (HI) Simpson Body Weight : 47 kg Shahnaz Trujillo [...] Shahnaz Trujillo Rn - 09/29/2018 18:12 EDT documented in this encounter Plan of Treatment Not on file documented as of this encounter Visit Diagnoses Not on filedocumented in this encounter
--- OUTSIDE RECORDS SUMMARY | 2024-10-23 12:09 | XMS_ITS | Encounter Summary ---
Author Organization [facility] Address [address] [place] [address] Care Team Providers Care Phys Therapist Name Role Phone Bill Lamar MD Primary Care Provider [phone] Encounter Details Date Type Department Care Team (Late st Contact Info) Description 10/04/2024 Orders Only [facility] [place] [facility] [address] [place] [address] Brittaney Morales, RN - Outpatient Center Social History Tobacco Use Types Packs/Day Years [...] encounter Miscellaneous Notes * Progress Notes - Brittaney Morales, RN - 10/04/2024 8:47 AM EDT Iron infusions NOT to be done before [facility]-reason scheduled out for after that. documented in this encounter Plan of Treatment Upcoming Encounters Date Type Department Care Team (Late st Contact Info) Description 10/26/2024 10:10 AM EDT Consult [facility] Medicine Specialties [address], [address] [place] [address] 11/20/2024 10:00 AM EDT Office Visit [facility] [address] [facility] [address], [address] [place] [address] Sara Johnson APRN [address] [place] [address] 01/08/2025 4:00 PM EST Office Visit [facility] [address] [facility], [address] [place] [address] Mitul Garza MD [address] [place] [address] 02/19/2025 9:00 AM EST Ancillary Procedure [facility] Medicine Specialties [address], [address]nd [place] [address] 02/19/2025 10:00 AM EST Office Visit [facility] Medicine Specialties [address], [address] [place] [address] Mariam Urban MD [address] [place] [address] documented as of this encounter [...] documented as of this encounter Care Teams Phys Therapist Relationship Specialty Start Date End Date Bill Lamar MD [address] [facility] [place] [address] PCP - General 04/13/22 documented as of this encounter
--- OUTSIDE RECORDS SUMMARY | 2024-10-23 12:09 | XMS_ITS | Encounter Summary ---
Author Organization Healthcare Address [address] [place] [address] Care Team Providers Care Accessibility Lift Technician Name Role Phone Bill Lamar MD Primary Care Provider [phone] Encounter Details Date Type Department Care Team (Latest Contact Info) Description 09/28/2024 Travel Social History Tobacco Use Types Packs/Day [...] Info) Description 10/26/2024 10:10 AM EDT [facility] [address], [address] [place] [address] 11/20/2024 10:00 AM EDT Office Visit [facility] [place] [address] [facility] [address], [address] [place] [address] Sara Johnson, SOW FARM MANAGER [address] [place] [address] 01/08/2025 4:00 PM EST Office Visit [facility] [place] [address] [facility] [address], [address] [place] [address] Mitul Garza MD [address] [place] [address] 02/19/2025 9:00 AM EST Ancillary Procedure [facility] Medicine Specialties [address], [address] [place] [address] 02/19/2025 10:00 AM EST Office Visit [facility] Specialties [address], [address] [place] [address] Mariam Urban MD [address] [place] [address] documented as of this encounter [...] documented as of this encounter Care Teams Accessibility Lift Technician Relationship Specialty Start Date End Date Bill Lamar MD [address] [place] [address] PCP - General 04/13/22 documented as of this encounter
--- OUTSIDE RECORDS SUMMARY | 2024-10-23 12:09 | XMS_ITS | Referral Summary ---
Author Organization [employer] ([place], [place], [place], [place]) Address [address] [place] [address] Care Team Providers Care Gun Welder Name Role Phone Unavailable Primary Care Provider Unavailabl e Allergies Active Allergy Reactions Criticality Noted Date Comments Lamotrigine Itching 09/16/2023 [place] 09/16/2023 Medications amitriptyline (ELAVIL) 25 MG tablet [...] mcg total) by mouth every morning. Active Active Problems Problem Noted Date Diagnosed [...] Advance Directives For more information, please contact: [phone] * Full Code (Latest Code Status on File) Date Activated Date Inactivated Comments 09/16/2023 11:46 AM 09/17/2023 4:27 AM
--- OUTSIDE RECORDS SUMMARY | 2024-10-23 12:09 | XMS_ITS | Encounter Summary ---
Author Organization Healthcare Address [address] [place] [address] Care Team Providers Care Fan Installer Name Role Phone Bill Lamar MD Primary Care Provider [phone] Encounter Details Date Type Department Care Team (Late st Contact Info) Description 10/17/2024 Telephone [facility] [address] [place] [address] Madhuri Brand, RN [facility] Social History Tobacco Use Types Packs/Day Years [...] drink first t cyndie in the morning (EYE-PROVISIONING ANALYST) to steady your nerves or to [...] Upcoming Encounters Date Type Department Care Team ([facility] st Contact Info) Description 10/26/2024 10:10 AM EDT Consult [facility] Specialties [address] [address] 11/20/2024 10:00 AM EDT Office Visit [facility] [place] [address] [facility], [address] [place] [address] Sara Johnson APRN [address] [place] [address] 01/08/2025 4:00 PM EST Office Visit [facility] [address] [facility], [address] [place] [address] Mitul Garza MD [address] [place] [address] 02/19/2025 9:00 AM EST Ancillary Procedure [facility] [place] [address] [address] 02/19/2025 10:00 AM EST Office Visit [place] [address] [address] Mariam Urban MD [address] [place] [address] documented as of this encounter Goals Goal [...] documented as of this encounter Care Teams Fan Installer Relationship Specialty Start Date End Date Bill Lamar MD [address] [place] [address] PCP - General 04/13/22 documented as of this encounter
--- OUTSIDE RECORDS SUMMARY | 2024-10-23 12:09 | XMS_ITS | Encounter Summary ---
Author Organization [employer] ([place], [place], [place], [place]) Address [address] [place] [address] Care Team Providers Care Graduate Nurse Name Role Phone Unavailable Primary Care Provider Unavailabl e Encounter Details Date Type Department Care Team (Late st Contact Info) Description 05/25/2018 Transcribed Document [facility] [place] Family Medicine [facility] [address] ProviderLeyda MD [address] [place] [id number] Social History Tobacco Use Types Packs/Day Years [...] Clark MD - 05/25/2018 3:21 PM CDT [address], [place] [address] Patient Copy Patient Information: Name: MELINDA APONTE Current Date: 05/25/2018 15:21:13 : 1975 Patient Address: [facility] [address] [facility] [address] Patient Attending Physician: ZINA STEELE MD-[facility] Primary Care Provider: Bill Lamar MD [...] getting enough exercise. ??? Smoking. ??? Taking vhuc-fmk-nzibbbr pain medicines, like aspirin and ibuprofen. SYMPTOMS [...] 11/18/2004 Document Revised: 02/26/2014 Document Reviewed: 01/16/2014 [employer] Interactive Patient Education ? 2017 [employer]. Colonoscopy, Adult, Care After This sheet gives [...] slower pace than normal. ? Eat soft, jkzp-dg-gzpzvl foods. ? Rest often. ??? Take kpzy-zhe-lfcgqlf or prescription medicines only as told by [...] 10/05/2004 Document Revised: 11/15/2016 Document Reviewed: 05/04/[address] Interactive Patient Education ? 2017 [employer] Hiatal Hernia A hiatal hernia occurs [...] symptoms. ??? Medicines. These may include: ? Bufd-wwg-pvdizvc antacids. ? Medicines that make your stomach [...] These may include: ? Fatty foods. ? Prentiss fruits. ? Other foods and drinks that [...] 05/13/2004 Document Revised: 06/14/2016 Document Reviewed: 02/08/2014 [employer] Interactive Patient Education ? 2017 [employer]. Gastric Polyps A gastric polyp, also called [...] Follow these instructions at home: ??? Take snfl-ibn-phwzxou and prescription medicines only as told by [...] 02/07/2013 Document Revised: 07/12/2016 Document Reviewed: 03/07/2016 [employer] Interactive Patient Education ? 2017 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 ? Vinegar [place] or spicy foods. ? Chocolate and peppermint. General instructions ??? Take yarj-whm-scpcimt and prescription medicines only as told by [...] Assistance with quitting is available by contacting 0-998-MSAX-NOW. This is a free resource providing counseling, [...] sure to sign up for the My [facility] patient portal, which gives you 27/09 access to your medical information ??? including these discharge instructions ??? using your computer, smartphone, or tablet. Just go to [place] to get started. Questions? Call . [facility] would like to thank you for allowing us to assist you with your healthcare needs. I, MELINDA APONTE, (or uniforms sales representative) have received the above patient education materials/instructions and have verbalized understanding: Patient Signature _ Date/Time Patient Metal Wire Technician Signature (if needed) Date/Time Clinician/Hospital Metal Wire Technician Signature (if needed) Date/Time documented in this encounter Plan of Treatment Not on file documented as of this encounter Visit Diagnoses Not on filedocumented in this encounter
--- OUTSIDE RECORDS SUMMARY | 2024-10-23 12:09 | XMS_ITS | Encounter Summary ---
Author Organization [facility] ([place], [place], [place], [place]) Address [address] [place] [address] Care Team Providers Care Dryerman/Woman Name Role Phone Unavailable Primary Care Provider Unavailabl e Encounter Details Date Type Department Care Team (Late st Contact Info) Description 05/25/2018 Transcribed Document [facility] Family Medicine [address] [place] [address] ProviderLeyda MD [address] [place] [address] Social History Tobacco Use Types Packs/Day Years [...] On: 05/25/2018 15:16 EDT by Nely Vitale Machine Pan Greaser Documentation Patient Disposition, General : Discharge Discharge [...]
--- OUTSIDE RECORDS SUMMARY | 2024-10-23 12:09 | XMS_ITS | Encounter Summary ---
Author Organization [employer] ([place], [place], [place], [place]) Address [address] [place] [address] Care Team Providers Care Semiconductors Wafer Breaker Name Role Phone Unavailable Primary Care Provider Unavailabl e Encounter Details Date Type Department Care Team (Late st Contact Info) Description 05/25/2018 Transcribed Document [facility] [place] [facility] [place] [address] ProviderLeyda MD [address] [place] [address] [id number] Social History Tobacco Use Types Packs/Day Years [...] Clark MD - 05/25/2018 3:23 PM CDT [address], [place] [address] Patient Copy Patient Information: Name: MELINDA APONTE Current Date: 05/25/2018 15:23:27 : 1975 Patient Address: [facility] [place] [id number] Patient Attending Physician: ZINA STEELE MD-[facility] Primary Care Provider: Bill Lamar MD Primary Care Provider Discharge Diagnosis: 1:Epigastric pain Weight on Admission: 170 lb, 2 oz Comment: Follow-up Instructions: With: Address: When: [place] [address] Business (1) Within As needed Comments: [...] getting enough exercise. ??? Smoking. ??? Taking pmzb-sjt-jqwqbah pain medicines, like aspirin and ibuprofen. SYMPTOMS [...] 11/18/2004 Document Revised: 02/26/2014 Document Reviewed: 01/16/2014 [employer] Patient Education ? 2017 [employer]. Colonoscopy, Adult, Care After This sheet gives [...] slower pace than normal. ? Eat soft, kprs-mb-djyvny foods. ? Rest often. ??? Take xbch-gvw-pejsfqc or prescription medicines only as told by [...] 10/05/2004 Document Revised: 11/15/2016 Document Reviewed: 05/04/2016 [employer] Patient Education ? 2017 [employer]. Hiatal Hernia A hiatal hernia occurs [...] symptoms. ??? Medicines. These may include: ? Qjjm-zvj-butujrv antacids. ? Medicines that make your stomach [...] These may include: ? Fatty foods. ? [place] fruits. ? Other foods and drinks that [...] 05/13/2004 Document Revised: 06/14/2016 Document Reviewed: 02/08/2014 [employer] Patient Education ? 2017 [employer]. Gastric Polyps A gastric polyp, also [...] Follow these instructions at home: ??? Take zkrl-ibg-vbrhmvz and prescription medicines only as told by [...] 02/07/2013 Document Revised: 07/12/2016 Document Reviewed: 03/07/2016 [employer] Patient Education ? 2017 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 ? [place] or spicy foods. ? Chocolate and peppermint. General instructions ??? Take ehxx-vqi-jiyezbu and prescription medicines only as told by [...] Revised: 07/29/2016 Document Reviewed: 12/04/2015 ? 2017 [employer] Esophagogastroduodenoscopy, Care After Introduction Refer to this [...] Revised: 07/29/2016 Document Reviewed: 01/15/2016 ? 2017 [employer] Medication Leaflets: omeprazole (oh MEP ra zol) [...] a broken bone while taking this medicine intermediate school teacher or more than once per day. What [...] by infection with Helicobacter pylori (H. pylori). Icvv-kcy-ccsjpmy (OTC) omeprazole is used to help control [...] medicine exactly as directed. Use Prilosec OTC (iows-bxl-jgxhpyr) exactly as directed on the label, or [...] may report side effects to FDA at 4-188-EXZ-7091. What other drugs will affect omeprazole? Sometimes it is not safe to use certain medications at the same time. Some drugs can affect your blood levels of other drugs you take, which may increase side effects or make the medications less effective. Tell your doctor about all your current medicines. Many drugs can affect omeprazole, especially: ? clopidogrel; ?? methotrexate; ?? Chancellor's wort; or ?? an antibiotic--amoxicillin, clarithromycin, rifampin. This list is not complete and many other drugs may affect omeprazole. This includes prescription and gwps-emx-alabbog medicines, vitamins, and herbal products. Not all [...] to ensure that the information provided by [employer]') is accurate, up-to-date, and complete, but no guarantee is made to that effect. Drug information contained herein may be time sensitive. [employer] information has been compiled for use by healthcare practitioners and consumers in the [place] and therefore [employer] does not warrant that uses outside of the [place] are appropriate, unless specifically indicated otherwise. [employer] drug information does not endorse drugs, diagnose patients or recommend therapy. [employer] drug information is an informational resource designed [...] effective or appropriate for any given patient. [facility] does not assume any responsibility for any aspect of healthcare administered with the aid of information [facility] provides. The information contained herein is not intended to cover all possible uses, directions, precautions, warnings, drug interactions, allergic reactions, or adverse effects. If you have questions about the drugs you are taking, check with your doctor, nurse or pharmacist. Copyright 2809-5319 [facility], [facility]. Version: 19.01. Revision Date: 08/29/2017. CIGARETTE SMOKING: The facts are clear, cigarette smoking will shorten your life. Smoking can cause many illnesses along the way. As a healthcare provider, we recommend that you stop smoking. Assistance with quitting is available by contacting 1-151-IASWCaprizaNOW. This is a free resource providing counseling, [...] computer, smartphone, or tablet. Just go to DEXMA to get started. Questions? Call . [facility] would like to thank you for allowing us to assist you with your healthcare needs. Kath, MELINDA APONTE, (or pharmaceutical service representative) have received the above patient education materials/instructions and have verbalized understanding: Patient Signature _ Date/Time Patient Pension Administrator Signature (if needed) Date/Time Clinician/Hospital Pension Administrator Signature (if needed) Date/Time documented in this encounter Plan of Treatment Not on file documented as of this encounter Visit Diagnoses Not on filedocumented in this encounter
--- OUTSIDE RECORDS SUMMARY | 2024-10-23 12:09 | XMS_ITS | Encounter Summary ---
Author Organization Healthcare Address [address] [place] [address] Care Team Providers Care Good Humor Vendor Name Role Phone Bill Lamar MD Primary Care Provider [phone] Encounter Details Date Type Department Care Team ([facility] st Contact Info) Description 10/05/2024 Telephone PAV G Infusion [address] [facility] [address] [place] [address] Sabiha Taylor, PharmD Social History Tobacco Use Types Packs/Day Years [...] drink first t cyndie in the morning (E[employer]-NEW [employer]AD RN) to steady your nerves or to get [...] encounter Miscellaneous Notes * Telephone Encounter - Sabiha Taylor PharmD - 10/05/2024 3:29 PM EDT [facility] has received therapy plan for medication Venofer. [facility] has contacted the patient and are in the process of completing the authorization for preferred site of care, [facility] . [facility] Specialty Education Summary Patient was assessed via phone for initiation of drug therapy Venofer for diagnosis CHIDI Secondary to heart failure. Plan for administration of therapy in infusion center and planned date of initiation: SALLIE. Anticipated filling pharmacy is [facility] . Education and Counseling Medication specific education provided: Discussion with patient included (but was not limited to): dosage, administration, duration, frequency, potential side effects, contraindications, safety and handling precautions, adherence and missed dose management, drug/drug interactions (if applicable) and storage & disposal. The patient has communicated understanding and had no further questions. Patient specific/therapeutic goal(s) of therapy: Alleviate signs and symptoms of disease. Summary/Plan Pharmacist reviewed patient chart for allergies and current medication list, comorbidities, relevant medical history, potential barriers to care and mitigation of those barriers, if applicable. Therapy is clinically appropriate given patient's condition. Any available financial resources were discussed with patient and utilized if appropriate. Patient has no other identified problems or needs at this time as it pertains to this specialty medication. Sabiha Taylor PharmD 10/05/24 3:29 PM documented in this encounter Plan of Treatment Upcoming Encounters Date Type Department Care Team (Late st Contact Info) Description 10/26/2024 10:[address] [facility] Medicine Specialties [address] [place] [address] 11/20/2024 10:00 AM EDT Office Visit [facility] [place] [address], [address] [place] [address] Sara Johnson, SIEBEL ARCHITECT [address] [place] [address] 01/08/2025 4:00 PM EST Office Visit [facility] [place] [facility] [address], [address] [place] [address] Mitul Garza MD [address] [place] [address] 02/19/2025 9:00 AM EST Ancillary Procedure [facility] Medicine Specialties [address] [place] [address] 02/19/2025 10:00 AM EST Office Visit [facility] Medicine Specialties [address] [place] [address] Mariam Urban MD [address] [place] [address] documented as of this encounter [...] documented as of this encounter Care Teams Good Humor Vendor Relationship Specialty Start Date End Date Bill Lamar MD [address] [place] [address] PCP - General 04/13/22 documented as of this encounter
--- OUTSIDE RECORDS SUMMARY | 2024-10-23 12:09 | XMS_ITS | Encounter Summary ---
Author Organization [employer] ([place], [place], [place], [place]) Address [address] [place] [address] Care Team Providers Care Second Shift Supervisor Name Role Phone Unavailable Primary Care Provider Unavailabl e Encounter Details Date Type Department Care Team (Late st Contact Info) Description 09/29/2018 Transcribed Document [facility] [place] [address] [place] [address] ProviderLeyda MD [address] [place] [address] Social History Tobacco Use Types Packs/Day Years [...]
--- OUTSIDE RECORDS SUMMARY | 2024-10-23 12:09 | XMS_ITS | Encounter Summary ---
Author Organization [employer] ([place], [place], [place], [place]) Address [address] [place] [address] Care Team Providers Care Shade Hanger Name Role Phone Unavailable Primary Care Provider Unavailabl e Encounter Details Date Type Department Care Team (Late st Contact Info) Description 09/29/2018 Transcribed Document [facility] [place] [address] [place], [place] [id number] ProviderLeyda MD [address] [place] [address] Social History Tobacco Use Types Packs/Day Years [...] On: 09/29/2018 11:53 EDT by Carissa Pulido [facility] Unit Coord Height and Weight, Clinical Dosing Weight Source : Standing scale Weight Entry Format : [place] Clinical Dosing Weight : 79.55 kg Weight, Pounds : 175 lb Carissa Pulido [facility] Unit Coord - 09/29/2018 11:53 EDT documented in this encounter Plan of Treatment Not on file documented as of this encounter Visit Diagnoses Not on filedocumented in this encounter
--- OUTSIDE RECORDS SUMMARY | 2024-10-23 12:09 | XMS_ITS | Clinical Summary ---
Author Organization [employer] ([place], [place], [place], [place]) Address [address] [place] [address] Care Team Providers Care Mutual Fund Sales Agent Name Role Phone Unavailable Primary Care Provider Unavailabl e Allergies Active Allergy Reactions Criticality Noted Date Comments Lamotrigine Itching 09/16/2023 Roff 09/16/2023 Medications amitriptyline (ELAVIL) 25 MG tablet [...] Date Tyrone rded Speak language other than Tanzanian at home Not on file 03/25/2023 Want [...] Advance Directives For more information, please contact: [phone] * Full Code (Latest Code Status on File) Date Activated Date Inactivated Comments 09/16/2023 11:46 AM 09/17/2023 4:27 AM
--- OUTSIDE RECORDS SUMMARY | 2024-10-23 12:09 | XMS_ITS | Encounter Summary ---
Author Organization [employer] ([place], [place], [place], [place]) Address [address] [place] [address] Care Team Providers Care Cloth Desizing Range Operator Chief Name Role Phone Unavailable Primary Care Provider Unavailabl e Encounter Details Date Type Department Care Team (Late st Contact Info) Description 05/25/2018 Transcribed Document [facility] [place] Family Medicine [facility] [address] ProviderLeyda MD [address] [place] [id number] Social History Tobacco Use Types Packs/Day Years [...] WOODY /Sex: 1975 Female Med Rec #: [id number] Physician: ZINA STEELE MD-GAE Financial #: [id number] Pt. Type: O Room/Bed: [facility] Admit/Disch: 05/25/18 12:46:00 - Institution: [facility] [place] Alyssa - Case Attendance Entry 1 Entry 2 Entry 3 Case Attendee ZINA STEELE MD-GAE SHERMAN, YVONNE D., RN TALIB HERNANDES NA Role Performed Surgeon/Proceduralist, Apprentice Carpenter, First RESTORATIVE CARE TECHNICIAN/Nurse Medical Secretary Teacher First Time In 05/25/18 14:10:00 05/25/18 13:56:00 05/25/18 13:56:00 Time Out 05/25/18 14:59:00 05/25/18 14:59:00 05/25/18 14:59:00 Procedure Colonoscopy, Colonoscopy, Colonoscopy, Esophagogastroduodenosco Esophagogastroduodenosco Esophagogastroduodenosco py, Duodenal Biopsy, py, Duodenal Biopsy, py, Duodenal Biopsy, Gastric Polypectomy, Gastric Polypectomy, Gastric Polypectomy, Colon Biopsy Colon Biopsy Colon Biopsy Other Attendee Superficial Wound Closed By: Last Modified By: TOÑO SILVA, TOÑO HENDRIX, TOÑO HENDRIX, RN 05/25/18 14:58:08 05/25/18 14:58:08 05/25/18 14:58:08 Entry 4 Case Attendee ZINA DUVALL RN Role Performed Scrub, First Time In 05/25/18 13:56:00 Time Out 05/25/18 14:59:00 Procedure Colonoscopy, Esophagogastroduodenosco py, Duodenal Biopsy, Gastric Polypectomy, Colon Biopsy Other Attendee Superficial Wound Closed By: Last Modified By: TOÑO SILVA, KOLE 05/25/18 14:58:08 [facility] Endo - Case Attendance Audit 05/25/18 14:58:08 Leaf Conditioner: VIKTORIA Modifier: VIKTORIA 1 <+> Time Out [...] Biopsy, Gastric Polypectomy, Colon Biopsy 05/25/18 14:53:22 Leaf Conditioner: VIKTORIA Modifier: VIKTORIA 1 <*> Procedure Colonoscopy, Esophagogastroduodenoscopy, Duodenal Biopsy, Gastric Polypectomy 2 <*> Procedure Colonoscopy, Esophagogastroduodenoscopy, Duodenal Biopsy, Gastric Polypectomy 3 <*> Procedure Colonoscopy, Esophagogastroduodenoscopy, Duodenal Biopsy, Gastric Polypectomy 4 <*> Procedure Colonoscopy, Esophagogastroduodenoscopy, Duodenal Biopsy, Gastric Polypectomy 05/25/18 14:20:26 Leaf Conditioner: VIKTORIA Modifier: SHERMAYD <+> 2 Procedure 3 <*> Procedure Colonoscopy, Esophagogastroduodenoscopy, Duodenal Biopsy 4 <*> Procedure Colonoscopy, Esophagogastroduodenoscopy, Duodenal Biopsy 05/25/18 14:20:25 Leaf Conditioner: VIKTORIA Modifier: SHERMAYD 1 <*> Procedure Colonoscopy, Esophagogastroduodenoscopy, Duodenal Biopsy 2 <-> Procedure Colonoscopy, Esophagogastroduodenoscopy, Duodenal Biopsy 05/25/18 14:14:02 Leaf Conditioner: VIKTORIA Modifier: SHERMAYD 1 <*> Procedure Colonoscopy, Esophagogastroduodenoscopy 2 <*> Procedure Colonoscopy, Esophagogastroduodenoscopy 3 <*> Procedure Colonoscopy, Esophagogastroduodenoscopy 4 <*> Procedure Colonoscopy, Esophagogastroduodenoscopy 05/25/18 14:12:23 Leaf Conditioner: VIKTORIA Modifier: SHERMAYD <+> 1 Time In [...] Endo - Case Times Audit 05/25/18 14:58:01 Leaf Conditioner: VIKTORIA Modifier: MARCINYD <+> 1 Out Room Time <+> 1 Stop Time <+> 1 Stop Time 05/25/18 14:13:25 Leaf Conditioner: VIKTORIA Modifier: MARCINYD <+> 1 Start Time [...] by TALIB HERNANDES NA Last Modified By: OTÑO SILVA RN 05/25/18 13:52:59 Josef Endo - [...] Yes Assessment Complete Fire Risk TOÑO SILVA, steel crane operator Verified By Fire Risk 05/25/18 13:51:00 Assessment Verified Date/Time Fire Risk High Risk Protocol Yes Implemented Standard Fire Yes Safety Precautions Followed Last Modified By: TOÑO SILVA RN 05/25/18 13:51:59 Josef Endo - General Case Household Manager 1 Case Information OR Endo 01 E Case Level 1 Room Verified Yes Wound Class III - Contaminated Specialty SN Gastroenterology Anesthesia Type MAC ASA Class 2 Diagnosis Preop Diagnosis gerd, hx of polpys, constipation Postop Diagnosis barretts, gastric polyps, Hiatal hernia, diverticulosis, redundant colon Last Modified By: TOÑO SILVA RN 05/25/18 14:58:42 MAURICIO Endo - General Case Data Audit 05/25/18 14:58:42 Leaf Conditioner: VIKTORIA Modifier: SHERMAYD 1 <*> Postop Diagnosis barretts, gastric polyps, Hiatal hernia, diverticulosis, redundant colon 05/25/18 14:42:53 Leaf Conditioner: VIKTORIA Modifier: SHERMAYD 1 <*> Postop Diagnosis barretts, gastric polyps, Hiatal hernia, diverticulosis 05/25/18 14:29:00 Leaf Conditioner: VIKTORIA Modifier: SHERMAYD <+> 1 Postop Diagnosis 05/25/18 14:08:50 Leaf Conditioner: VIKTORIA Modifier: SHERMAYD 1 <*> OR Endo [...] Endo - Intraoperative Equipment Audit 05/25/18 13:51:45 Leaf Conditioner: VIKTORIA Modifier: VIKTORIA <+> 2 Photo <+> [...] related to extraneous objects Last Modified By: OTÑO SILVA, RN 05/25/18 14:57:45 MAURICIO Endo - [...] Endo - Surgical Procedures Audit 05/25/18 14:57:29 Leaf Conditioner: VIKTORIA Modifier: VIKTORIA 1 <*> Procedure Colonoscopy 1 <+> Stop 5 <*> Procedure Colon Biopsy 5 <+> Stop 05/25/18 14:53:19 Leaf Conditioner: VIKTORIA Modifier: VIKTORIA 1 <*> Procedure Colonoscopy 1 <+> Physician States Cecum Reached <+> 5 Procedure <+> 5 Primary Procedure <+> 5 Primary Surgeon <+> 5 Specialty <+> 5 Start <+> 5 Wound Class <+> 5 Anesthesia Type <+> 5 Physician States Cecum Reached 05/25/18 14:42:30 Leaf Conditioner: VIKTORIA Modifier: MARCINYD 1 <*> Procedure Colonoscopy 1 <+> Specialty 1 <*> Start 05/25/18 14:39:00 1 <+> Anesthesia Type 05/25/18 14:31:55 Leaf Conditioner: VIKTORIA Modifier: SHERMAYD 2 <*> Procedure Esophagogastroduodenoscopy 2 <+> Stop 3 <*> Procedure Duodenal Biopsy 3 <+> Stop 4 <*> Procedure Gastric Polypectomy 4 <+> Stop 05/25/18 14:20:23 Leaf Conditioner: VIKTORIA Modifier: QUINTONMAYD <+> 4 Procedure <+> 4 Primary Procedure <+> 4 Primary Surgeon <+> 4 Specialty <+> 4 Start <+> 4 Wound Class <+> 4 Anesthesia Type <+> 4 Additional Procedure Description 05/25/18 14:13:59 Leaf Conditioner: VIKTORIA Modifier: QUINTONMAYD <+> 1 Start 2 [...] Endo - Time Out Audit 05/25/18 14:20:27 Leaf Conditioner: VIKTORIA Modifier: MARCINYD 1 <*> Procedure to be Performed Colonoscopy, Esophagogastroduodenoscopy, Duodenal Biopsy 05/25/18 14:14:03 Leaf Conditioner: VIKTORIA Modifier: MARCINYD 1 <*> Procedure to be Performed Colonoscopy, Esophagogastroduodenoscopy Case Comments <None> Finalized By: TOÑO SILVA, RN Document Signatures Signed By: TOÑO SILVA RN 05/25/18 14:58 Electronically signed by Soham Betancourt Conversion Cartography/Mapping Technician Cerner at 06/22/2022 9:24 AM CDT documented in this encounter Plan of Treatment Not on file documented as of this encounter Visit Diagnoses Not on filedocumented in this encounter
--- OUTSIDE RECORDS SUMMARY | 2024-10-23 12:09 | XMS_ITS | Encounter Summary ---
Author Organization [employer] ([place], [place], [place], [place]) Address [address] [place] [address] Care Team Providers Care Pulling Unit Operator Name Role Phone Unavailable Primary Care Provider Unavailabl e Encounter Details Date Type Department Care Team (Late st Contact Info) Description 05/25/2018 Transcribed Document [facility] [place] Family Medicine [address] [place] [address] ProviderLeyda MD [address] [place] [address] Social History Tobacco Use Types Packs/Day Years [...] EDT Performed On: 05/25/2018 15:50 EDT by Neyl Vitale Rn Discharge Documentation Discharge Date/Time : [...] EDT Electronically signed by Ernesto Betancourt Conversion Manager Financial Services Cerner at 06/22/2022 9:22 AM CDT documented in this encounter Plan of Treatment Not on file documented as of this encounter Visit Diagnoses Not on filedocumented in this encounter
--- OUTSIDE RECORDS SUMMARY | 2024-10-23 12:09 | XMS_ITS | Encounter Summary ---
Author Organization [employer] ([place], [place], [place], [place]) Address [address] [place] [address] Care Team Providers Care Apprentice Embalmer Name Role Phone Unavailable Primary Care Provider Unavailabl e Encounter Details Date Type Department Care Team (Late st Contact Info) Description 09/29/2018 Transcribed Document [facility] [place] Family Medicine [address] [place] [address] ProviderLeyda MD [address] [place] [address] Social History Tobacco Use Types Packs/Day Years [...]
--- OUTSIDE RECORDS SUMMARY | 2024-10-23 12:09 | XMS_ITS | Encounter Summary ---
Author Organization [employer] ([place], [place], [place], [place]) Address [address] [place] [address] Care Team Providers Care Multifold Operator Name Role Phone Unavailable Primary Care Provider Unavailabl e Encounter Details Date Type Department Care Team (Late st Contact Info) Description 09/29/2018 Transcribed Document [facility] [place] Family Medicine [address] [place] [address] ProviderLeyda MD [facility] [place] [address] Social History Tobacco Use Types Packs/Day Years [...] Source : Stated Height Entry Format : [place] Height, Feet : 5 ft(Converted to: 152 cm, 60 Inch) Height, Inches : 1 Inch(Converted to: 0 ft 1 Inch, 2.54 cm) Clinical Height : 154.94 cm Weight Source : Standing scale Weight Entry Format : [place] Clinical Dosing Weight : 79.55 kg Weight, Pounds : 175 lb Body Surface Area (BSA) : 1.79 m2 Body Mass Index : 33.1 kg/m2 (HI) [place] Body Weight : 47 kg Starr Silva Rn - 09/29/2018 12:13 EDT Health Histories Smoking Status : Never (less than 100 in lifetime; none in last 30 days) Smokeless Tobacco Status : Never Implant/Device Type, Adult Live In Caregiver and Model : wong Starr Silva Rn [...] Special Services and Community Resources : None tSarr Silva Rn - 09/29/2018 12:13 EDT Psychosocial [...] Obtained From : Patient Primary Language : Palestinian Preferred Communication Mode : Verbal Communication Barrier [...] Scale Risk Level : 0-24 Low Risk [place] Fall Interventions : Adequate lighting, Bed in [...] Buzz Best Motor Response : Obey commands [place] Best Verbal Response : Oriented Buzz Eye Opening Response : Spontaneous [place] Coma Score : 15 Starr Silva Rn - 09/29/2018 12:13 EDT Electronically signed by Ernesto Betancourt Conversion Adolescent Medicine Specialist Cerner at 06/22/2022 9:17 AM CDT documented in this encounter Plan of Treatment Not on file documented as of this encounter Visit Diagnoses Not on filedocumented in this encounter
--- OUTSIDE RECORDS SUMMARY | 2024-10-23 12:09 | XMS_ITS | Encounter Summary ---
Author Organization [employer] ([place], [place], [place], [place]) Address [address] [place] [address] Care Team Providers Care Floor Layer Apprentice Name Role Phone Unavailable Primary Care Provider Unavailabl e Encounter Details Date Type Department Care Team (Late st Contact Info) Description 05/25/2018 Transcribed Document [facility] Family Medicine [facility] [place] [address] ProviderLeyda MD [address] [place] [id number] Social History Tobacco Use Types Packs/Day Years [...] Clark MD - 05/25/2018 3:53 PM CDT [address], [place] [address] Patient Copy Patient Information: Name: MELINDA APONTE Current Date: 05/25/2018 15:53:57 : 1975 Patient Address: [facility] [facility] [id number] Patient Attending Physician: ZINA STEELE MD[facility] Primary Care Provider: Bill Lamar MD Primary Care Provider Discharge Diagnosis: 1:Epigastric pain Weight on Admission: 170 lb, 2 oz Comment: Follow-up Instructions: With: Address: When: [place] [address] Business (1) Within As needed Comments: [...] getting enough exercise. ??? Smoking. ??? Taking ydyq-gvt-nzohktx pain medicines, like aspirin and ibuprofen. SYMPTOMS [...] 11/18/2004 Document Revised: 02/26/2014 Document Reviewed: 01/16/2014 [employer] [employer] Interactive Patient Education ? 2017 [employer]. Colonoscopy, Adult, Care After This sheet gives [...] slower pace than normal. ? Eat soft, dtsn-lv-ulalke foods. ? Rest often. ??? Take zgws-lud-uarblcg or prescription medicines only as told by [...] 10/05/2004 Document Revised: 11/15/2016 Document Reviewed: 05/04/2016 [employer] [employer] Interactive Patient Education ? 2017 [employer] Hiatal Hernia A hiatal hernia occurs [...] symptoms. ??? Medicines. These may include: ? Jnly-fzp-myluhqd antacids. ? Medicines that make your stomach [...] These may include: ? Fatty foods. ? Whitman fruits. ? Other foods and drinks that [...] 05/13/2004 Document Revised: 06/14/2016 Document Reviewed: 02/08/2014 [employer] Interactive Patient Education ? 2017 [employer] Gastric Polyps A gastric polyp, also [...] Follow these instructions at home: ??? Take tarh-vlq-stpeepg and prescription medicines only as told by [...] 03/07/2016 Elsevier Interactive Patient Education ? 2017 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 ? [place] or spicy foods. ? Chocolate and peppermint. General instructions ??? Take owje-ifu-ekafepm and prescription medicines only as told by [...] a broken bone while taking this medicine long-term or more than once per day. What [...] by infection with Helicobacter pylori (H. pylori). Otvl-myg-hclclrz (OTC) omeprazole is used to help control [...] medicine exactly as directed. Use Prilosec OTC (njip-lsz-dljzhhl) exactly as directed on the label, or [...] may report side effects to FDA at 0-909-DPM-0392. What other drugs will affect omeprazole? Sometimes [...] may affect omeprazole. This includes prescription and hyza-tcp-hnortef medicines, vitamins, and herbal products. Not all [...] to ensure that the information provided by [employer]. ('[employer]') is accurate, up-to-date, and complete, but no guarantee is made to that effect. Drug information contained herein may be time sensitive. [employer] information has been compiled for use by healthcare practitioners and consumers in the [place] and therefore [employer] does not warrant that uses outside of the [place] are appropriate, unless specifically indicated otherwise. [employer] drug information does not endorse drugs, diagnose patients or recommend therapy. Flukle drug information is an informational resource designed [...] effective or appropriate for any given patient. [facility] does not assume any responsibility for any aspect of healthcare administered with the aid of information [employer] provides. The information contained herein is not intended to cover all possible uses, directions, precautions, warnings, drug interactions, allergic reactions, or adverse effects. If you have questions about the drugs you are taking, check with your doctor, nurse or pharmacist. Copyright 4495-1272 [employer]. Version: 19.01. Revision Date: 08/29/2017. hyoscyamine (genaro [...] may report side effects to FDA at 5-384-YBW-5507. What other drugs will affect hyoscyamine? Tell [...] drugs may affect hyoscyamine, including prescription and vjcz-eup-idxiqga medicines, vitamins, and herbal products. Not all [...] to ensure that the information provided by [employer]') is accurate, up-to-date, and complete, but no guarantee is made to that effect. Drug information contained herein may be time sensitive. [employer] information has been compiled for use by healthcare practitioners and consumers in the [place] and therefore [employer] does not warrant that uses outside of the [place] are appropriate, unless specifically indicated otherwise. [employer] drug information does not endorse drugs, diagnose patients or recommend therapy. Flukle drug information is an informational resource designed [...] effective or appropriate for any given patient. [employer] does not assume any responsibility for any aspect of healthcare administered with the aid of information [employer] provides. The information contained herein is not intended to cover all possible uses, directions, precautions, warnings, drug interactions, allergic reactions, or adverse effects. If you have questions about the drugs you are taking, check with your doctor, nurse or pharmacist. Copyright 1340-7461 [employer]. Version: 7.01. Revision Date: 01/24/2018. linaclotide (LACEY [...] may report side effects to FDA at 5-887-WTZ-7065. What other drugs will affect linaclotide? Other drugs may interact with linaclotide, including prescription, rqqs-unn-ejlrvwn, vitamin, and herbal products. Tell your doctor [...] to ensure that the information provided by [employer]') is accurate, up-to-date, and complete, but no guarantee is made to that effect. Drug information contained herein may be time sensitive. [employer] information has been compiled for use by healthcare practitioners and consumers in the [place] and therefore [employer] does not warrant that uses outside of the [place] are appropriate, unless specifically indicated otherwise. [employer] drug information does not endorse drugs, diagnose patients or recommend therapy. [employer] drug information is an informational resource designed [...] effective or appropriate for any given patient. [facility] does not assume any responsibility for any aspect of healthcare administered with the aid of information [facility] provides. The information contained herein is not intended to cover all possible uses, directions, precautions, warnings, drug interactions, allergic reactions, or adverse effects. If you have questions about the drugs you are taking, check with your doctor, nurse or pharmacist. Copyright 0534-6358 [employer]. Version: 4.02. Revision Date: 11/23/2016. CIGARETTE SMOKING: The facts are clear, cigarette smoking will shorten your life. Smoking can cause many illnesses along the way. As a healthcare provider, we recommend that you stop smoking. Assistance with quitting is available by contacting 2-596-DNIEAircomNOW. This is a free resource providing counseling, [...] Be sure to sign up for the [employer] patient portal, which gives you 27/09 access to your medical information ??? including these discharge instructions ??? using your computer, smartphone, or tablet. Just go to [employer] to get started. Questions? Call . [facility] would like to thank you for allowing us to assist you with your healthcare needs. HECTOR [place] SHANNON CRAFT, (or tour sales representative) have received the above patient education materials/instructions and have verbalized understanding: Patient Signature _ Date/Time Patient Gauge And Weigh Machine Adjuster Signature (if needed) Date/Time Clinician/Hospital Gauge And Weigh Machine Adjuster Signature (if needed) Date/Time documented in this encounter Plan of Treatment Not on file documented as of this encounter Visit Diagnoses Not on filedocumented in this encounter
--- OUTSIDE RECORDS SUMMARY | 2024-10-23 12:09 | XMS_ITS | Encounter Summary ---
Author Organization [employer] ([place], [place], [place], [place]) Address [address] [place] [address] Care Team Providers Care Commutator Assembler Name Role Phone Unavailable Primary Care Provider Unavailabl e Encounter Details Date Type Department Care Team (Late st Contact Info) Description 09/29/2018 Transcribed Document [facility] [place] Family Medicine [address] [place] [address] ProviderLeyda MD [address] [place] [address] Social History Tobacco Use Types Packs/Day Years [...]
--- OUTSIDE RECORDS SUMMARY | 2024-10-23 12:09 | XMS_ITS | Encounter Summary ---
Author Organization Healthcare Address [address] [place] [address] Care Team Providers Care Mechanic Welder Name Role Phone Bill Lamar MD Primary Care Provider [phone] Encounter Details Date Type Department Care Team (Latest Contact Info) Description 10/19/2024 Travel Social History Tobacco Use Types Packs/Day [...] Have you had a drink first t cnydie in the morning (EYE-PHOTO MASK CLEANER) to steady your nerves or to get [...] Info) Description 10/26/2024 10:10 AM EDT Consult [facility]ties [address] [place] [address] 11/20/2024 10:00 AM EDT Office Visit [facility] [address], [address] [place] [address] Sara Johnson APRN [address] [place] [address] 01/08/2025 4:00 PM EST Office Visit [facility] [address], [address] [place] [address] Mitul Garza MD [address] [place] [address] 02/19/2025 9:00 AM EST Ancillary Procedure [facility] [address] [place] [address] 02/19/2025 10:00 AM EST Office Visit [facility] [address], [facility] [place] [phone] Mariam Urban MD [address] [place] [address] documented as of this encounter Goals Goal [...] documented as of this encounter Care Teams Mechanic Welder Relationship Specialty Start Date End Date Bill Lamar MD [address] [place] [address] PCP - General 04/13/22 documented as of this encounter
--- OUTSIDE RECORDS SUMMARY | 2024-10-23 12:09 | XMS_ITS | Encounter Summary ---
Author Organization Healthcare Address [address] 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 or to get [...] Info) Description 10/26/2024 10:10 AM EDT Consult [facility]ties [address] [place] [phone] 11/20/2024 10:00 AM EDT Office Visit [facility] [address], [address] [place] [address] Sara Johnson APRN [address] [place] [address] 01/08/2025 4:00 PM EST Office Visit [facility] [address], [address] [place] [address] Mitul Garza MD [address] [place] [address] 02/19/2025 9:00 AM EST Ancillary Procedure [facility] [address] [place] [address] 02/19/2025 10:00 AM EST Office Visit [facility] [address], [facility] [place] [address] Mariam Urban MD [address] [place] [address] documented as of this encounter Goals Goal [...] documented as of this encounter Care Teams Wrapper Operator Relationship Specialty Start Date End Date Bill Lamar MD [address] [place] [address] PCP - General 04/13/22 documented as of this encounter
--- OUTSIDE RECORDS SUMMARY | 2024-10-23 12:09 | XMS_ITS | Encounter Summary ---
Author Organization Healthcare Address [address] 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 nerves or to get [...] [facility] [address] [place] [phone] 11/20/2024 10:00 AM EDT Office Visit [facility] [address], [address] [place] [address] Sara Johnson APRN [address] [place] [address] 01/08/2025 4:00 PM EST Office Visit [facility] [address], [address] [place] [address] Mitul Garza MD [address] [place] [address] 02/19/2025 9:00 AM EST Ancillary Procedure [facility] [address] [place] [address] 02/19/2025 10:00 AM EST Office Visit [facility] [address], [facility] [address] Mariam Urban MD [address] [place] [address] documented as of this encounter Goals Goal [...] documented as of this encounter Care Teams Pinking Sewing Machine Operator Relationship Specialty Start Date End Date Bill Lamar MD [address] [place] [address] PCP - General 04/13/22 documented as of this encounter
--- OUTSIDE RECORDS SUMMARY | 2024-10-23 12:09 | XMS_ITS | Encounter Summary ---
Author Organization [employer] ([place], [place], [place], [place]) Address [address] [place] [address] Care Team Providers Care Inspector Tubes Name Role Phone Unavailable Primary Care Provider Unavailabl e Encounter Details Date Type Department Care Team (Late st Contact Info) Description 05/25/2018 Transcribed Document [facility] Family Medicine [address] [place] [address] ProviderLeyda MD [address] [place] [address] Social History Tobacco Use Types Packs/Day Years [...] EDT Electronically signed by Ernesto Betancourt Conversion [employer] Police Officer Nargisner at 06/22/2022 9:26 AM CDT documented in this encounter Plan of Treatment Not on file documented as of this encounter Visit Diagnoses Not on filedocumented in this encounter
--- OUTSIDE RECORDS SUMMARY | 2024-10-23 12:09 | XMS_ITS | Encounter Summary ---
Author Organization [employer] ([place], [place], [place], [place]) Address [address] [place] [address] Care Team Providers Care Window Dresser Name Role Phone Unavailable Primary Care Provider Unavailabl e Encounter Details Date Type Department Care Team (Late st Contact Info) Description 05/25/2018 Transcribed Document [facility] [place] Family Medicine [address] [place] [address] ProviderLeyda MD [address] [place] [address] Social History Tobacco Use Types Packs/Day Years [...] Source : Stated Height Entry Format : Terry Height, Feet : 5 ft(Converted to: 152 cm, 60 Inch) Height, Inches : 1 Inch(Converted to: 0 ft 1 Inch, 2.54 cm) Clinical Height : 154.94 cm Weight Source : Standing scale Weight Entry Format : Terry Clinical Dosing Weight : 77.33 kg Weight, Pounds : 170 lb Weight, Ounces : 2 oz Body Surface Area (BSA) : 1.77 m2 Body Mass Index : 32.2 kg/m2 (HI) [place] Body Weight : 47 kg KAMALA MOISE [...] Obtained From : Patient Primary Language : Cypriot Preferred Communication Mode : Verbal Communication Barrier [...] Scale Risk Level : 0-24 Low Risk [place] Fall Interventions : Adequate lighting, Assistive devices [...]
--- NOTE | 2024-10-23 12:45 | ECG_ITS ---
APPROVED REPORT Exam: Resting ECG HR:78 bpm ECG Measurements Heart Rate 78 AXES RI 198 P 48 QRSd 150 QRS -42 QT 429 T 47 QTc 462 Conclusion SINUS RHYTHM LEFT AXIS DEVIATION [QRS AXIS < -30] LEFT BUNDLE BRANCH BLOCK [120+ ms QRS DURATION, 80+ ms Q/S IN V1/V2, 85+ ms R IN I/aVL/V5/V6] ABNORMAL ECG UNCONFIRMED REPORT Electronically signed by : Quinten Resendez MD 10/23/2024 17:05:48
[2024-10-23 13:53] LABS: Hematocrit 37.1 % (37.0-47.0); Hemoglobin 11.8 g/dL (12.2-16.2); Immature Granulocytes % 0.2 %; Mean Corpuscular HGB Conc 31.8 g/dL (31.8-35.4); Mean Corpuscular Hemoglobin 30.1 pg (27.0-31.2); Mean Corpuscular Volume 94.6 fl (81-99); Nucleated Red Blood Cells % 0 %; Platelet Count 273 K/mm3 (142-424); Red Blood Count 3.92 M/mm3 (4.20-5.40); Red Cell Distribution Width-SD 46.3 fL; White Blood Count 9.3 K/mm3 (4.8-10.8)
[2024-10-23 14:34] LABS: Albumin Level 4.2 g/dl (3.5-5.0); Chloride 106 mmol/L (98-107); Potassium 4.4 mmoL/L (3.5-5.1); Sodium 141 mmol/L (136-145)
[2024-10-23 14:36] LABS: HCG Qualitative, Serum Negative (Negative)
[2024-10-23 14:37] LABS: Alanine Aminotransferase 29 U/L (12-78); Albumin/Globulin Ratio 1.7 (1.1-1.8); Alkaline Phosphatase 101 U/L (38-126); Anion Gap 12.4 mEq/L (5-15); Aspartate Amino Transferase 39 U/L (14-36); Bilirubin,Total 0.4 mg/dl (0.2-1.3); Blood Urea Nitrogen 12 mg/dl (7-17); Calcium 9.2 mg/dl (8.4-10.2); Carbon Dioxide 27 mmol/L (22.0-30.0); Creatinine Clearance Estimated 96 mL/min (50-200); Creatinine,Serum 0.90 mg/dl (0.52-1.04); Estimated Glomerular Filt Rate 66 ml/min (>60); GFR (African American) 80 ML/MIN (>60); Globulin 2.5 g/dL (1.3-3.2); Glucose 85 mg/dl (74-100); Total Protein,Serum 6.7 g/dl (6.3-8.2)
== END 2024-10-23 23:59 | disposition home or self-care (01) ==
LOC: PREOP 12:06
PROVIDERS: PCP Internal Medicine; Visit Provider Obstetrics & Gynecology
DX: Z01.810 Encounter for preprocedural cardiovascular examination (principal); Z01.812 Encounter for preprocedural laboratory examination; I44.7 Left bundle-branch block, unspecified; R94.31 Abnormal electrocardiogram [ECG] [EKG]
CPT/HCPCS: 36415; 80053; 84703; 85025; 93005

== ENCOUNTER 2024-10-30 06:12 | Day surgery (SDC) | payer BC, SELFPAY ==
[2024-10-23 13:40] VITALS: BMI 34.2
[2024-10-30] VITALS (10 sets, daily range): BP systolic 111–133; BP diastolic 60–75; PULSE 74–89; RESP 16–18; TEMP 36.2–36.7; O2SAT 95–100
[2024-10-30] MEDS: LACTATED RINGERS 1000ML 1,000 ML 25 ML IV (06:23)
--- NOTE | 2024-10-30 07:11 | P.PNANES_ITS ---
[facility] Disclaimer: The information contained in this section may have been updated after the patient was seen, as this information can be updated by other users. Medical History Vulvar lesion Left bundle branch block (LBBB) Chronic heart failure Dyspareunia in female Decreased libido Atrophic vaginitis Lesion of female perineum Menopausal symptoms Lichen sclerosus of vulva Hair loss Scleroderma Fibromyalgia Raynaud disease IBS (irritable bowel syndrome) Diverticulosis Arthritis Anemia Anxiety Gastroparesis Silveira's esophagus GERD (gastroesophageal reflux disease) Surgical History History of delivery History of Jim fundoplication H/O: hysterectomy H/O hernia repair History of esophageal surgery History of cholecystectomy H/O breast surgery Family History Grandmother Breast cancer Family/Other Breast cancer Mother Brain bleed Other Cancer Coronary artery disease Heart disease Hyperlipidemia Hypertension Kidney disease Stroke Social History Smoking Status: Never smoker alcohol intake: never substance use type: denies use current occupational status: employed Travel in the last 8 weeks?: None caffeine: Yes Have you lived/traveled outside [place] in past 30 days?: No Contact w/someone who lives/traveled outside US past 30 days?: No Exposure to someone with infectious disease in past 14 days?: No Do you have a fever (greater than 100.4 F or 38 C)?: No Have you tested positive for COVID-19?: No Exposed to someone with COVID-19 in past 14 days?: No Do you have a sore throat?: No Do you have a cough?: No Do you have any weakness?: No Do you have any diarrhea?: No Are you experiencing any unusual bleeding?: No Do you have any muscle aches/pain?: No Do you have any abdominal pain?: No Are you experiencing loss of taste or smell?: No [facility] Anesthesia Checklist Patient Identification Patient Identification: Arm Band and Verbal (Name & ) Structural Data Admitted From: Home Planned Operative Procedure/s: vulvar lesion excision Consent for Planned Operative Procedure(s) Verified: Yes Verified Documents: Surgical Consent NPO Status Verified Time NPO: 00:00 Chart Verification Results Verified: ECG Additional verifications Anesthesia Reactions: No Hx Blood Transfusions: Yes Blood Transfusion Reaction: No Airway Assessment Mallampati Score:: Class II C-Spine Mobility Assessed: Yes TMJ Mobility Assessed: Yes Dentition: Good Dentition (veneers) Neurological Assessment Level of Consciousness: Awake, Alert and Appropriate Hx Seizures: No Numbness or tingling in extremities: No Anesthesia Plan Anesthesia Risk discussed: Yes Anesthesia Plan: Verified ASA Class: III Anesthesia Type: MAC
[2024-10-30] MEDS: BUPIVACAINE 0.5% 30ML VIAL 150 MG (07:49)
--- NOTE | 2024-10-30 08:01 | EXP.OP.NOTE ---
Date of procedure: 10/30/24 Pre-op Diagnosis:: 1. Vulvar lesion Post-op Diagnosis:: 1. Vulvar lesion Procedure performed:: 1. Vulvar lesion Surgeon:: Linnette Barton DO [employer] Club Repairer(s):: N/a FLOWER [employer] PRESS OPERATOR:: Toby Golden Anesthesia: GETA Estimated blood loss (mL): 2 Clinical Note:: Mrs Melinda Aponte is a 49 yo P1001 who presents to [facility] for scheduled procedure. She complains of a lesion on her vulva that has been there for a while but feels bigger since using Clobetasol for lichen sclerosis. Denies bleeding, discharge and pain with the lesion. Operative findings:: 1. 1 cm oval lesion that resembles condyloma on superior portion of right labia majora Operative note:: Risks, benefits and alternatives were discussed with the patient. Risks include but are not limited to bleeding, infection, and VTE. Patient voiced understanding and agreed to proceed. She was wheeled back to the operating room and placed under general anesthesia without difficulty. She was placed in dorsal lithotomy position and prepped and draped in the normal sterile fashion. Base of vulvar lesion was injected with 2 cc of 0.5% marcaine without epi. Lesion was grasped with Adson forceps. Scalpel was used to excise lesion. Specimen was handed off of sterile field and will be sent to pathology for review. Base of lesion was cauterized with Bovi cautery. Skin was reapproximated over based of lesion with 3-0 Vicryl suture in a running stitch. Hemostasis was noted. Patient was awaken from anesthesia without difficulty. She was transported to recovery room in stable condition. Patient will be discharged home when awake and ambulating. She was also given instructions to follow-up in the office in 2 weeks. Condition: stable Disposition: same day Specimens:: 1. Vulvar lesion Complications:: None
--- NOTE | 2024-10-30 08:03 | EXP.ANES.I ---
[facility] Anesthesia Record Part I Anesthesia Record I Intake, IV Amount: 500 Hydration: Adequate Estimated blood loss (mL): 0 Urine output (mL): 0 Blood Products used (#): none Blood Pressure: 133/75 SaO2: 95 Pulse Rate: 80 Airway Patency: Patent Respiratory Rate: 16 Temperature: 98.1 F Patient is:: Drowsy and Stable Stable to PACU at:: 08:00
[2024-10-30] MEDS: ONDANSETRON 4MG/2ML VIAL 4 MG IV (08:15)
[2024-10-30 08:44] LABS: POC Glucose,Bedside 80 (70-110)
--- NOTE | 2024-10-30 10:52 | P.PNANES_ITS ---
[facility] Anesthesia Record Part II Anesthesia Record Part II Discharge Time: 09:01 Destination: Surgical Day Care (OP Surgery) PACU nurse assessment reviewed?: Yes Patient Condition:: Good Anesthesia Complications:: None Swallowing reflex intact?: Yes Airway Patency: Patent Cyanosis?: No Blood Pressure: 123/70 SaO2: 98 Respiratory Rate: 16 Pulse Rate: 74 Temperature: 97.6 F Mental Status: Alert & Oriented Pain level:: 0 Nausea and/or vomitting:: None Intake, IV Amount: 0 Hydration: Adequate
[2024-10-31 15:02] LABS: POC Glucose,Bedside 88 gm/dL (70-110)
== END 2024-10-30 09:01 | disposition home or self-care (01) ==
PROVIDERS: PCP Internal Medicine; Visit Provider Obstetrics & Gynecology
PROC: (CPT 11421; principal; 2024-10-30 07:30)
DX: A63.0 Anogenital (venereal) warts (principal); Z90.710 Acquired absence of both cervix and uterus; Z88.1 Allergy status to other antibiotic agents
CPT/HCPCS: 11421; 82962; J0665; J1100; J1885; J2003; J2004; J2250; J2405; J2704; J3010; J7120

== ENCOUNTER 2024-11-16 15:06 | Outpatient (RCR) | payer BC, SELFPAY | END 2024-12-04 08:00 | disposition home or self-care (01) | LOC: CR 15:06 | PROVIDERS: Visit Provider Internal Medicine | DX: I50.9 Heart failure, unspecified (principal); M34.9 Systemic sclerosis, unspecified; Z53.21 Procedure and treatment not carried out due to patient leaving prior to being seen by health care provider ==

== ENCOUNTER 2024-12-22 11:36 | Outpatient (CLI) | payer BC, SELFPAY ==
--- OUTSIDE RECORDS SUMMARY | 2024-10-26 10:10 | XMS_ITS | Encounter Summary ---
Author Organization Healthcare Address [address] [place] [address] Care Team Providers Care Video Library Assistant Name Role Phone Bill Lamar MD Primary Care Provider [phone] Reason for Referral * Consultation (Routine) - Closed Specialty Diagnoses / Procedures Referred By Wander aragon Referred To Contact Gastroenterology Diagnoses Dysphagia, pharyngoesophageal phase Limited systemic sclerosis (CMS/HCC) Vonnie Ramos MD [address] [address] Phone: tel: fax: Kari Lozano MD [address] [address] Phone: tel: fax: Referral ID Status Reason Start Date Expiration Date V isits Requested Visits Authorized [id number] Closed Specialty Services Required 10/26/2024 04/27/2026 1 1 Reason for Visit * Reason Comments Consult Chronic heart failur e, unspecified heart failure type * Consultation (Routine) - Closed Specialty Diagnoses / Procedures Referred By Wander aragon Referred To Contact Rheumatology Diagnoses Chronic heart failure, unspecified heart failure type Mitul Garza MD [address] [place] [address] Phone: tel: fax: Vonnie Ramos MD [address] [place] [address] Phone: tel: fax: Referral ID Status Reason Start Date Expiration Date V isits Requested Visits Authorized [id number] Closed Specialty Services Required 09/27/2024 03/29/2026 1 1 Encounter Details Date Type Department Care Team (Latest Contact Info) Description 10/26/2024 10:10 AM EDT [facility] [address] [place] [address] Sony Buck, MBBS [address] [place], [place] [id number] Limited systemic sclerosis (CMS/HCC) (Primary Dx); Dysphagia, pharyngoesophageal phase; Raynaud's disease without gangrene Social History Tobacco Use Types Packs/Day Years Used Date Smoking Tobacco: Never Passive Smoke Exposure: Never Smokeless Tobacco: Never Tobacco Cessation:Counseling Given: Not Answered Alcohol Use Standard Drinks/Week Comments Yes 2 (1 standard drink = 0.6 oz pur e alcohol) PHQ-2 Answer Date Recorded Patient Health Questionnaire-2 Score 0 10/26/2024 PHQ-9 Answer Date Recorded Patient Health Questionnaire-9 Score 0 09/27/2024 AUDIT-C Answer Date Recorded Q1: How often do you have a drink containing alc ohol? 2-4 times a month 10/26/2024 Q2: How many drinks containi ng alcohol do you have on a typical day when you are drinking? 1 or 2 10/26/2024 Q3: How often do you have si x or more drinks on one occasion? Never 10/26/2024 CAGE ASSESSMENT Answer Date Recorded Cage unable [...] drink first t cyndie in the morning (EYE-LABOR CONTRACT ANALYST) to steady your nerves or to [...] Sign Reading Time Taken Comments Blood Pressure 106/73 10/26/2024 10:16 AM EDT Pulse 86 10/26/2024 10:16 AM EDT Temperature 36.5 C (97.7 F) 10/26/2024 10:16 AM EDT Respiratory Rate 16 10/26/2024 10:16 AM EDT Oxygen Saturation 98% 10/26/2024 10:16 AM EDT Inhaled Oxygen Concentration - - Weight 81.3 kg (179 lb 3.7 oz) 10/26/2024 10:16 AM EDT Height 154.9 cm (5' 1 ) 10/26/2024 10:16 AM EDT Body Mass Index 33.87 10/26/2024 10:16 AM EDT documented in this encounter Functional Status * AUDIT-C Score Answer Date of Assessment Author 2 10/26/2024 10:09 AM EDT Janeth Martin * Question Answer Date of Assessment Author Q1: How often do you have a drink containing alcohol? 2-4 times a month 10/26/2024 10:09 AM EDT Janeth Martin Q2: How many drinks containing alcohol do you have on a typical day when you are drinking? 1 or 2 10/26/2024 10:09 AM LUIST Janeth Martin Q3: How often do you have six or more drinks on one occasion? Never 10/26/2024 10:09 AM EDT Janeth Martin * Over the past 2 weeks, how often have you been bothered by any of the following problems? Question Answer Date of Assessment Author Little interest or pleasure in doing things Not at all 10/26/2024 10:08 AM EDT Janeth Martin Feeling down, depressed, or hopeless Not at all 10/26/2024 10:08 AM EDT Janeth Martin Patient Health Questionnaire -2 Score 0 10/26/2024 10:08 AM EDT Janeth Martin documented as of this encounter Miscellaneous Notes * Patient Instructions - Sony Buck MBBS - 10/26/2024 10:10 AM EDT F/u in 6 months Nitrobid ointment for raynauds Speech and swallow referral GI referral * Progress Notes - Sony Buck MBBS - 10/26/2024 10:10 AM EDT Rheumatology consult office visit note Chief complaints: Patient being referred for continued management of limited sclerosis HPI Melinda Aponte is a 49 y.o. female who is here to see us for history of limited sclerosis. History of the disease: 49-year-old lady with a longstanding history of Raynaud's, GERD with dysphagia complicated by Silveira's esophagus, sicca symptoms comes to [facility] for the 1st time for continued management ofher prior diagnosis of limited sclerosis. Her symptoms began with fatigue, generalized arthralgias,worsening of prior GERD in April of 2021. She states that prior to the onset of her symptoms, she had a cholecystectomy and symptoms began a few weeks after that. She subsequently was evaluated and an autoimmune workup was pursued with a history of GERD and also notably for Raynaud's. PENNY was elevated to 1: 1280 and anticentromere antibody was elevated to greater than 8 and thus was diagnosed w ith limited sclerosis. Following her diagnosis, she was placed on hydroxychloroquine to help with her joint symptoms and was started on 400 mg twice daily which she has continued ever since with notable improvement in her arthralgias and myalgias. She reports no calcinosis in the past. With respect to her Raynaud's, she has been experiencing Raynaud's for multiple years and states that her hands turn purple to white onexposure to cold. There have been prior discussions regarding treatment of Raynaud's with calcium channel blockers, however pursue all of this treatment has been held off given her comorbidities tillnow. She reports that her good symptoms have been managed supportively and she is currently on famot idine and Voquenza with benefit. She does have a history of Silveira's esophagus with esophageal dysmotility as evidenced on manometry with a history of Toupet procedure. Her most recent EGDs were done on 07/02/2024 which showed cricopharyngeal spasms and underwent dilation and she subsequently had another EGD on 08/03/2024 which was overall unremarkable. Colonoscopy done in January of 2024 showed severe sigmoid diverticulosis with narrowing of the colonic lumen. She has chronic epigastric painand there was a suspicion for median arcuate ligament syndrome which was ruled out by imaging. Patient also has a history of chronic dyspnea and she has had a thorough evaluation prior to her 1st rheumatology visit at . Right heart catheterization done in September of 2024 did not show any significant signs for pulmonary artery hypertension. Patient has had serial pulmonary function tests with the most recent done in February of 2024 which was essentially normal (apart from mild on current inher DLCO). She does have a history of heart failure with reduced ejection fraction with the most recent transthoracic echocardiogram being done in August of 2024 which showed an EF of 35-40% with hypokinesis of the septum, inferior septal and anteroseptal mccarthy. Further workup to look for etiology ofher heart failure with reduced ejection fraction included a Holter monitor, PET scan and cardiac MRI and they have been unrevealing. She is currently on GMT and being followed by Cardiology. Current visit: At today's visit, her history was reviewed and she was accompanied by her spouse during today's visit. At this time, patient states that the symptoms affecting her the most are her Raynaud's and GERDsymptoms. She also notes to having fatigue and exertional dyspnea. With respect to her GERD symptoms, she states that although she has noticed overall improvement since the onset of symptoms many years ago she still continues to have symptoms and occasionally experiences a sensation of food gettingstuck in her throat. She has had MBS studies in the past which were unrevealing. She is currently on famotidine and vonoprozan. She states that her Raynaud symptoms have been worsening and would liketo seek treatment for the same. Her joint symptoms appear to be overall well controlled on hydroxychloroquine and she did report toroutine screening with ophthalmology. Hydroxychloroquine levels were checked in January and were noted to being 536. At this visit, she also endorsed episodic pain along the anterior chest wall at the lower part of her ribcage which has been ongoing for many months with no specific triggers. We also reviewed her heart failure history and discussed her prior imaging briefly. She stated that her bowel symptoms namely constipation have improved with prucalopride. Her other review of rheumatological symptoms were otherwise normal. Of note, we also reviewed her prior history and she states that her was complicated by hemorrhage. She states that posterior , she experienced significant fatigue and dyspnea which lasted for a few months and she recalls being told that she should not become again but does not recall the reasoning to the same. Immunization History Administered Date(s) Administered Influenza, injectable, MDCK, preservative free, quadrivalent 01/19/2022, 01/23/2023 Influenza, seasonal, injectable, preservative free 12/24/2023 Hanna COVID-19 Vaccine (Blue Cap) 18+ 05/15/2020 Moderna COVID-19 Vaccine (Clinical Laboratory Technician) 12+ years 01/10/2021, 07/17/2021 Moderna COVID-19 Vaccine Bivalent 6months+ 12/12/2021 Moderna Covid-19 Vaccine 12y+, Carlos Protein, Preservative free 01/23/2023, 12/24/2023 PMH: Past Medical History[1] FHX: Family History[2] SocHx: Social History Socioeconomic History Marital status: Spouse name: Not on file Number of children: Not on file Years of education: Not on file Highest education level: Not on file Occupational History Not on file Tobacco Use Smoking status: Never Passive exposure: Never Smokeless tobacco: Never Vaping Use Vaping status: Never Used Substance and Sexual Activity Alcohol use: Yes Alcohol/week: 2.0 standard drinks of alcohol Types: 2 Glasses of wine per week Drug use: Never Sexual activity: Yes Partners: Male control/protection: Post-menopausal, Surgical Other Topics Concern Not on file Social History Narrative Not on file Social Drivers of Health Financial Resource Strain: Not on file Food Insecurity: No Food Insecurity (03/25/2023) Received from [facility] ([place], [place], [place], [place]) Food Insecurity Food run out past 12 months: Not on file Food did not last past 12 months: Not on file Transportation Needs: Not on file Physical Activity: Not on file Stress: Not on file Social Connections: Low Risk (03/25/2023) Received from [facility] ([place], [place], [place], [place]) Family and Community Support Help with Day to Day Activities: Not on file Feeling Lonely or Isolated: Not on file Intimate Partner Violence: Not At Risk (08/03/2024) Received from [facility] Interpersonal Violence Patient afraid of, threatened, hurt, or sexually abused by someone known to him/her: No Housing Stability: Low Risk (07/06/2023) Received from [facility] Housing Stability Unstable Housing in the Last Year: Not on file ROS: Patient denies fever/chills, night sweats, weight loss, photosensitivity, rash, RP, nasal/oral/genital ulcers, alopecia, epistaxis, inflammatory eye disease, dry eye, dry mouth, chest pain/palpitations, h/o pericarditis, h/o pleuritis, hemoptysis, abdominal pain, n/v/d/c, hematochezia/melena, dysuria, hematuria. No h/o DVT/PE. OBJECTIVE Visit Vitals BP 106/73 Pulse 86 Temp 36.5 ??C (97.7 ??F) (Oral) Ht 1.549 m (5' 1 ) Wt 81.3 kg (179 lb 3.7 oz) SpO2 98% BMI 33.87 kg/m?? Home medications: Current Outpatient Medications Medication Instructions acetaminophen (TYLENOL) 1,000 mg, Every 6 hours PRN azelastine (Astelin) 0.1 % nasal spray ADMINISTER 2 SPRAYS INTO EACH NOSTRIL EVERY 12 HOURS carvedilol (COREG) 3.125 mg, 2 times daily clobetasol (Temovate) 0.05 % cream APPLY TOPICALLY TO THE AFFECTED AREA AT BEDTIME EVERY NIGHT colchicine (Colcrys) 0.6 MG tablet colestipol (COLESTID) 1 g, 2 times daily empagliflozin (JARDIANCE) 10 mg, ZZ Daily RT eplerenone (INSPRA) 25 mg, Oral, Daily estradiol (Estrace) 2 MG tablet estradiol (Vagifem) 10 MCG tablet vaginal tablet estradiol (Vivelle-DOT) 0.025 MG/24HR estradiol 2MG DAILY famotidine (Pepcid) 40 MG tablet famotidine 40 mg fluticasone (Flonase) 50 MCG/ACT nasal spray shake liquid and use 2 sprays in each nostril daily glucosamine-chondroitin 500-400 MG tablet 1 tablet, 3 times daily hydroxychloroquine (Plaquenil) 200 MG tablet hyoscyamine (Levsin) 0.125 MG SL tablet LORazepam (ATIVAN) 1 mg, Daily Magnesium 100 MG capsule magnesium 500MG DAILY Melatonin 24 mg Motegrity 2 mg, ZZ Daily RT nitroglycerin (Sohail-Bid) 2 % ointment 0.5 inches, Transdermal, 2 times daily PRN nortriptyline (PAMELOR) 50 mg, ZZ Daily RT ondansetron (Zofran) 4 MG tablet polyethylene glycol (MIRALAX) 17 g, Daily promethazine (PHENERGAN) 25 mg, Every 8 hours PRN sacubitril-valsartan (Entresto) 24-26 MG tablet 1 tablet, Oral, 2 times daily Voquezna 20 MG tablet 1 tablet, ZZ Daily RT Physical Exam Constitutional: Appearance: Normal appearance. HENT: Head: Normocephalic. Right Ear: Tympanic membrane, ear canal and external ear normal. Left Ear: Tympanic membrane, ear canal and external ear normal. Nose: Nose normal. Mouth/Throat: Mouth: Mucous membranes are moist. Eyes: Extraocular Movements: Extraocular movements intact. Conjunctiva/sclera: Conjunctivae normal. Pupils: Pupils are equal, round, and reactive to light. Cardiovascular: Rate and Rhythm: Normal rate and regular rhythm. Pulses: Normal pulses. Heart sounds: Normal heart sounds. Pulmonary: Effort: Pulmonary effort is normal. Breath sounds: Normal breath sounds. Abdominal: Palpations: Abdomen is soft. Musculoskeletal: General: No swelling, tenderness or deformity. Normal range of motion. Cervical back: Normal range of motion. Skin: General: Skin is warm. Comments: Skin tightening noted distal to the DIP Neurological: General: No focal deficit present. Mental Status: She is alert and oriented to person, place, and time. Results: Lab Results Component Value Date WBC 5.99 10/06/2024 HGB 11.3 10/06/2024 HCT 34.1 10/18/2024 MCV 93 10/06/2024 PLT 238 10/06/2024 Lab Results Component Value Date GLUCOSE 88 10/06/2024 CALCIUM 9.2 10/06/2024 NA 140 10/06/2024 K 4.0 10/06/2024 CO2 26 10/06/2024 CL 104 10/06/2024 BUN 10 10/06/2024 CREATININE 0.92 10/06/2024 Images: MR CARDIAC MORPHOLOGY AND FUNCTION W RADHA FLOW MAPPING W AND WO CONTRAST done on 10/18/2024: - Mildly dilated left ventricle with mildly reduced global systolic function (LVEF 41%). The basal and mid septum is akinetic with hypokinesis of the mid anterior wall. There is abnormal septal translation and systole. There is no evidence of left ventricular myocardial late gadolinium enhancement.Normal T2 mapping as well as squaxin T1 mapping and ECV is not suggestive of acute inflammatory or infiltrative cardiomyopathy. Findings of a dilated cardiomyopathy without features to suggest a specific underlying etiology. - Normal sized right ventricle with normal global systolic function (RVEF 63%). - No significant valvular abnormalities. - No evidence of intra-cardiac shunt, Qp:Qs of 1:[address] by [address] flow analysis [address] ABDOMEN PELVIS W IV CONTRAST done on 08/06/2024: - Normal caliber and configuration of the patent celiac access. No findings to suggest median arcuate ligament syndrome. - Postsurgical changes of Jim fundoplication and gastroesophageal reflux. CT Abdomen/Pelvis done on 07/19/2024: - Surgical changes of Jim fundoplication without evidence of slipping or disruption. Luminal contrast within the slightly dilated upstream esophagus may reflect slow transient or residual/recurrent reflux. If symptoms of achalasia are present, consider upper GI study to assess for a tight wrap. - Sigmoid diverticulosis. - Inspissated stool throughout the left hemicolon, consistent with provided history of constipation. - Partially visualized bibasilar subpleural nodules, better seen on recent CT chest. CT Chest w IV Contrast done on 07/04/2024: - Numerous bilateral pulmonary nodules measuring up to 3 mm, not significantly changed from prior exam. Findings are nonspecific, however in the setting of provided history of scleroderma, differential includes follicular bronchiolitis, versus chronic granulomas from prior airway infection. - No significant evidence of interstitial lung disease. - Patulous esophagus with diffuse wall thickening, likely related to provided history of scleroderma. Assessment/Plan 49-year-old lady with a past medical history significant for heart failure with reduced ejection fraction, limited scleroderma (anticentromere antibody positivity) with GERD complicated by Silveira's esophagus (status post fundoplication), Raynaud's phenomenon, sclerodactyly and chronic constipationis coming to Rheumatology to establish care for management of her history of limited scleroderma. Her history of limited sclerosis began in April of 2021 with symptoms of generalized arthralgia, worsening of GERD, Raynaud's phenomenon. Thus far, she has been managed with Plaquenil for her arthralgias with notable benefit. With respect to her GERD symptoms, she states overall benefit with Vonoprazan and famotidine but continues to experience occasional episodes of dysphagia. As mentioned in HPI, she has noted to having worsening of Raynaud's phenomenon and is currently not on any treatment either topically or systemically for the same. She notes that her skin symptoms have improved on P laquenil. With respect to her chronic dyspnea which is likely secondary to heart failure reduced ejection fraction, she continues to follow with cardiology and is on GDM T and has not had any heart failure exacerbations in the recent past. A thorough workup into the etiology of heart failure with reduced ejection fraction which included a echocardiogram, Holter monitor, MRI, PET scan have all been unrevealing. Her remote history significant dyspnea post could raise the question of possible cardiomyopathy, however she did note to improvement to her baseline and without prior medical records and a prior echo it would be difficult to diagnose the same. On physical examination, apart from mild skin tightening distal to the DIPs her overall examinationwas benign. We explored treatment options for her Raynaud's and we recommended topical treatment with nitrates with possible consideration of oral therapy in the future. Options at that time would include calcium channel blockers depending upon her GERD symptoms and phosphodiesterase inhibitor. Mendez had NBS 20 to evaluate for a dysphagia in the past which has been unrevealing. CT scans of her lungs and PFTs did not show any signs of ILD. She would like disease speech and swallow therapy again along with Gastroenterology. For her concerns of anterior chest wall pain, there is a possibility that she has small fiber neuropathy. We discussed diagnostic options such as skin biopsy and given that the sensitivity of the test is about 60%, and as her symptoms are not disabling, we will hold off for now. We also discussed treatment options such as gabapentin. Hold off on any medications for now given that she only has mild symptoms. Recommendations: - We will start the patient on Nitro-Bid for her Raynaud's - Speech and swallow evaluation for her persistent dysphagia. We will also send a referral to Gastroenterology for further evaluation and management of her dysphagia along with prior history of Silveira's. - Encourage regular follow up with Cardiology for her history of heart failure with reduced ejection fraction. - Patient does not have any flare-ups symptoms at the moment and would not recommend any lab work at today's visit. - Consider medications such as gabapentin for possible small fiber neuropathy in the future if she has worsening of symptoms. - Encourage a regular follow up with Ophthalmology given that patient is on Plaquenil. Continue current dose of Plaquenil - Follow up in 6 months Counseling: Prior notes, results, and imaging were reviewed by me with independent interpretation of labs. The patient was counseled regarding diagnosis (testing/results), prognosis, risk factor reduction, management options (risks/benefits), and adherence (visits/treatment). The above plan has been discussed with Dr. Richard Lawrence was seen today for consult. Diagnoses and all orders for this visit: Dysphagia, pharyngoesophageal phase (Primary) - NEGATIVE RESTORER eval and treat; Future - Gastroenterology; Future Raynaud's disease without gangrene - nitroglycerin (Sohail-Bid) 2 % ointment; Place 0.5 inches on the skin 2 times a day as needed (Raynauds). Limited systemic sclerosis (CMS/HCC) - Gastroenterology; Future - nitroglycerin (Sohail-Bid) 2 % ointment; Place 0.5 inches on the skin 2 times a day as needed (Raynauds). Other orders - Ambulatory referral to Rheumatology Follow up in about 6 months (around 04/28/2025). Information regarding activities, treatments, and follow-up recommendations was provided to the patient/family member(s) present today who have shown recognition and demonstration of understanding ofthis information. Cony Garces MD PGY4, Rheumatology Fellow Division of Rheumatology Department of Internal Medicine [facility] Please note: This dictation was prepared using [employer] voice recognition software. As a result errors may occur. While every attempt is made to correct the mistakes during dictation, errors may still exist. When identified, these ironworker wire fence erector errors have been updated. [1] Past Medical History: Diagnosis Date Anemia Anxiety Osteoarthritis [2] Family History Problem Relation Name Age of Onset Breast cancer Maternal Grandmother Breast cancer Mother's Sister Cosigned by Vonnie Ramos MD at 10/26/2024 4:38 PM EDT Associated attestation - Vonnie Ramos MD - 10/26/2024 4:38 PM EDT * The patient has limited systemic sclerosis characterized by skin thickening distal to the IP joints, PENNY with centromere pattern, positive centromere antibodies, patulous esophagus with GERD, colonic inertia, Raynaud???s phenomenon, and nailfold capillary changes. Recent echocardiogram and right h eart catheterization were reviewed, showing no evidence of pulmonary hypertension. Echocardiogram, cardiac MRI, and cardiac PET demonstrated mildly reduced ejection fraction, though the patient remains asymptomatic without clinical features of congestive heart failure. HRCT and PFTs were also reviewed and revealed no evidence of interstitial lung disease. Management plan includes initiation of topical nitroglycerin (Nitrobid) for Raynaud???s phenomenon and referral to speech and swallow therapy (given prior abnormal swallowing study at [facility]).A referral to gastroenterology will be made for further optimization of GERD management. We will continue to comanage this complex systemic autoimmune disease in collaboration with other specialties. At present, there are no indications for immunosuppressive therapy. I saw and evaluated the patient with the fellow. I discussed the case with the fellow and agree with the findings and plan as documented. The patient was counseled about diagnostic results, instruction for management, risk factors reduction, prognosis, compliance with visits and treatment, risks and benefits of treatments options. Prior notes (by external physicians) and results were reviewed by me with independent interpretation of labs and imaging. My note will be sent to PCP and other consulting physicians. documented in this encounter Plan of Treatment Upcoming Encounters Date Type Department Care Team (Late st Contact Info) Description 12/22/2024 3:00 PM EDT Appointment [facility] [address] [place] [address] 12/25/2024 10:00 AM EDT Office Visit [facility] [address] [address], [address] [place] [address] Sara Johnson, PULL SOCKET ASSEMBLER [address] [place] [id number] 01/08/2025 4:00 PM EST Office Visit [facility] [address], [address] [place] [address] Mitul Garza MD [address] [place] [id number] 02/19/2025 9:00 AM EST Ancillary Procedure [facility] [address] [place] [address] 02/19/2025 10:00 AM EST Office Visit [facility] [address] [place] [address] Mariam Urban MD [address] [place] [id number] 04/26/2025 11:10 AM EST Office Visit [facility] [address] [place] [address] 05/16/2025 2:00 PM EDT Office Visit [facility] [address] [place] [address] Marli Godoy MD [address] [place] [address] Scheduled Referrals Name Type Priority Associated Diagnoses Orde r Schedule Gastroenterology Outpatient Referral Routine Dysphagia, pharyngoesophageal phase Limited systemic sclerosis (CMS/HCC) 1 Occurrences starting 10/26/2024 until 04/29/2026 documented as of this encounter Goals Goal Patient Goal Type Associated Problems Recent Progress Patient-Stated? Author Patient will verbalize understanding of orthotic wear , care and precautions. Occupational Therapy No Pat Bueno documented as of this encounter Visit Diagnoses Diagnosis Limited systemic sclerosis (CMS/HCC)- Primary Systemic sclerosis Dysphagia, pharyngoesophageal phase Raynaud's disease without gangrene documented in this encounter Additional Health Concerns Assessment Noted Time PHQ-9 Depression Total Score: 0 09/28/19 25 3:19 PM EDT A fall risk assessment has been complete d for the patient 10/26/2024 10:08 AM EDT A Body Mass Index follow-up plan has been documented for the patient 10/26/2024 4:38 PM EDT documented as of this encounter Care Teams Video Library Assistant Relationship Specialty Start Date End Date Bill Lamar MD [address] [place] [address] PCP - General 04/13/22 documented as of this encounter
--- OUTSIDE RECORDS SUMMARY | 2024-11-30 15:00 | XMS_ITS | Encounter Summary ---
Author Organization Healthcare Address [address] [place] [address] Care Team Providers Care Piano Case Maker Name Role Phone Bill Lamar MD Primary Care Provider [phone] Reason for Visit * Reason Comments OP Infusion * Episode Based Medications (Routine) - Authorized Specialty Diagnoses / Procedures Referred By Contac t Referred To Contact Diagnoses Acute on chronic systolic heart failure Iron deficiency anemia, unspecified iron deficiency anemia type Procedures PA IRON SUCROSE INJECTION Mitul Garza MD [address] [place] [address] Phone: tel: fax: Mitul Garza MD [address] [place] [address] Phone: tel: fax: Referral ID Status Reason Start Date Expiration Date V isits Requested Visits Authorized [id number] Authorized 11/14/2024 06/28/2026 1 8 Encounter Details Date Type Department Care Team (Latest Contact Info) Description 11/30/2024 3:00 PM EDT - 11/30/2024 11:59 PM EDT Hospital Encounter [facility] [address] [facility] [address] [place] [address] Iron deficiency anemia, unspecified iron deficiency anemia [...] drink first t cyndie in the morning (EYE-INSPECTOR MACHINE CUT GLASS) to steady your nerves or to get [...] tablet by mouth twice a day. 08/21/2024 dapagliflozin (Farxiga) 10 MG tablet Take 1 tablet by mouth daily. 30 tablet 5 11/28/2024 eplerenone (Inspra) 25 MG tablet Take 1 [...] tablet Take 1 tablet by mouth daily. Melatonin 12 MG tablet Take 24 mg [...] by mouth 1 time each day. 08/22/2024 Magnesium 100 MG capsule magnesium 500MG DAILY documented as of this encounter Miscellaneous Notes * Amna Sanchez RN - 11/30/2024 3:55 PM EDT Images from the original note were not included. [id number] Iron Sucrose Injection WHY is this medicine [...] to the Food and Drug Administration's (FDA) [place] Adverse Event Reporting program online (https://www.fda.gov/Safety/MedWatch) or by phone ( ). What should I do in case of OVERDOSE? In case of overdose, call the poison control helpline at . Information is also available online at https://www.poisonhelp.org/help. If the victim has collapsed, had a seizure, has trouble breathing, or can't be awakened, immediately call emergency services at 301. What OTHER INFORMATION should I know? Keep all appointments with your doctor and the laboratory. Your doctor will check your blood pressure and order certain lab tests to check your body's response to iron sucrose injection. Keep a written list of all of the prescription and nonprescription ([id number]) medicines, vitamins, minerals, and dietary supplements you [...] independent, informed decision of an appropriate health health care sanitary technician, and the information is provided for informational purposes only. The entire monograph for a drug should be reviewed for a thorough understanding of the drug's actions, uses and side effects. The [employer] does not endorse or recommend the use of any drug.The information is not a substitute for medical care. AHFS?? Patient Medication Information?. ?? Copyright, 2023. The [employer]??, [address], [address], [place], [place]. All Rights Reserved. Duplication for commercial use must be authorized by [facility]. Selected Revisions: June 19, 2013. AHFS?? Patient Medication Information?. ?? Copyright, 2024 documented in this encounter Plan of Treatment Upcoming Encounters Date Type Department Care Team (Late st Contact Info) Description 12/22/2024 3:00 PM EDT Appointment [facility] [address] [place] [address] 12/25/2024 10:00 AM EDT Office Visit [facility] [address], [address] [place] [address] Sara Johnson APRN [address] [place] [address] 01/08/2025 4:00 PM EST Office Visit [facility] [address], [address] [place] [address] Mitul Garza MD [address] [place] [address] 02/19/2025 9:00 AM EST Ancillary Procedure [facility] [address] [place] [address] 02/19/2025 10:00 AM EST Office Visit [facility] [address], [address] [place] [address] Mariam Urban MD [address] [place] [address] 04/26/2025 11:10 AM EST Office Visit [facility] Medicine [facility] [address], [address] [place] [address] 05/16/2025 2:00 PM EDT Office Visit [facility] [address], [address] [place] [address] Marli Godoy MD [address] [place] [address] documented as of this encounter Goals Goal [...] LAB HEMATOLOGY METHOD 11/30/2024 4:10 PM EDT [facility] RBC Count 3.69(L) 3.90 - 5.20 10*6/uL LAB HEMATOLOGY METHOD 11/30/2024 4:10 PM EDT [facility] HGB 11.3 11.2 - 15.7 g/dL LAB HEMATOLOGY METHOD 11/30/2024 4:10 PM EDT [facility] HCT 34.8 34.0 - 45.0 % LAB HEMATOLOGY METHOD 11/30/2024 4:10 PM EDT [facility] Platelet Count 257 155 - 369 10*3/uL LAB HEMATOLOGY METHOD 11/30/2024 4:10 PM EDT [facility] MCV 94 79 - 98 fL LAB HEMATOLOGY METHOD 11/30/2024 4:10 PM EDT [facility] MCH 30.6 26.0 - 32.0 pg LAB HEMATOLOGY METHOD 11/30/2024 4:10 PM EDT [facility] MCHC 32.5 30.7 - 35.5 g/dL LAB HEMATOLOGY METHOD 11/30/2024 4:10 PM EDT [facility] RDW 13.3 11.5 - 14.5 % LAB HEMATOLOGY METHOD 11/30/2024 4:10 PM EDT [facility] MPV 10.4 8.8 - 12.5 fL LAB HEMATOLOGY METHOD 11/30/2024 4:10 PM EDT [facility] nRBC 0.0 <=0.0 per 100 WBCs LAB HEMATOLOGY METHOD 11/30/2024 4:10 PM EDT [facility] Differential Type Automated LAB HEMATOLOGY METHOD 11/30/2024 4:10 PM EDT [facility] Neutrophils % 45 % LAB HEMATOLOGY METHOD 11/30/2024 4:10 PM EDT [facility] Lymphocytes % 44 % LAB HEMATOLOGY METHOD 11/30/2024 4:10 PM EDT [facility] Monocytes % 6 % LAB HEMATOLOGY METHOD 11/30/2024 4:10 PM EDT [facility] Eosinophils % 4 % LAB HEMATOLOGY METHOD 11/30/2024 4:10 PM EDT [facility] Basophils % 1 % LAB HEMATOLOGY METHOD 11/30/2024 4:10 PM EDT [facility] Immature Granulocytes % 0 % LAB HEMATOLOGY METHOD 11/30/2024 4:10 PM EDT [facility] Neutrophils Absolute 2.98 1.60 - 6.10 10*3/uL LAB HEMATOLOGY METHOD 11/30/2024 4:10 PM EDT [facility] Lymphocytes Absolute 2.99 1.20 - 3.90 10*3/uL LAB HEMATOLOGY METHOD 11/30/2024 4:10 PM EDT [facility] Monocytes Absolute 0.42 0.30 - 0.90 10*3/uL LAB HEMATOLOGY METHOD 11/30/2024 4:10 PM EDT [facility] Eosinophils Absolute 0.25 0.00 - 0.50 10*3/uL LAB HEMATOLOGY METHOD 11/30/2024 4:10 PM EDT [facility] Basophils Absolute 0.07 0.00 - 0.10 10*3/uL LAB HEMATOLOGY METHOD 11/30/2024 4:10 PM EDT [facility] Immature Granulocytes Absolute 0.02 0.00 - 0.06 10*3/uL LAB HEMATOLOGY METHOD 11/30/2024 4:10 PM EDT [facility] Blood Venous blood specimen / Unknown Venipuncture / Unknown 11/30/2024 3:44 PM EDT 11/30/2024 3:56 PM EDT Narrative [facility] - 11/30/2024 4:10 PM EDT Therapeutic decision making should be based on absolute values, rather than percentages. us Mitul Garza MD LAB BLOOD ORDERABLES Final Res ult Performing Organization Address [facility]/ZIP Co de Phone Number [facility] [address] [place] [address] * Iron and TIBC (11/30/2024 3:44 PM EDT) Iron, Plasma 89 30 - 160 ug/dL 11/30/2024 4:26 PM EDT [facility] Transferrin, Plasma 308 200 - 360 mg/dL 11/30/2024 4:26 PM EDT [facility] Total Iron Binding Capacity, Plasma 385 240 - 450 ug/mL 11/30/2024 4:26 PM EDT [facility] Transferrin Saturation 23 14 - 50 % 11/30/2024 4:26 PM EDT [facility] Blood Venous blood specimen / Unknown Venipuncture / Unknown 11/30/2024 3:44 PM EDT 11/30/2024 3:52 PM EDT us Mitul Garza MD LAB BLOOD ORDERABLES Final Res ult Performing Organization Address City/[facility]/ZIP Co de Phone Number [facility] [address] [place] [address] * Ferritin (11/30/2024 3:44 PM EDT) Ferritin, Serum 34 13 - 150 ng/mL 11/30/2024 4:28 PM EDT [facility] Blood Venous blood specimen / Unknown Venipuncture / Unknown 11/30/2024 3:44 PM EDT 11/30/2024 3:52 PM EDT us Mitul Garza MD LAB BLOOD ORDERABLES Final Res ult [facility] [address] [place] [address] documented in this encounter Visit Diagnoses Diagnosis [...] documented as of this encounter Care Teams Piano Case Maker Relationship Specialty Start Date End Date Bill Lamar MD [address] [place] [address] PCP - General 04/13/22 documented as of this encounter
--- OUTSIDE RECORDS SUMMARY | 2024-12-08 14:25 | XMS_ITS | Encounter Summary ---
Author Organization Healthcare Address [address] [place] [address] Care Team Providers Care Bevel Gear Generator Operator Name Role Phone Bill Lamar MD Primary Care Provider [phone] Reason for Visit * Episode Based Medications (Routine) - Authorized Specialty Diagnoses / Procedures Referred By Contac t Referred To Contact Diagnoses Acute on chronic systolic heart failure Iron deficiency anemia, unspecified iron deficiency anemia type Procedures [place] IRON SUCROSE INJECTION Mitul Garza MD [address] [place] [address] Phone: tel: fax: Mitul Garza MD [address] [place] [address] Phone: tel: fax: Referral ID Status Reason Start Date Expiration Date V isits Requested Visits Authorized [id number] Authorized 11/14/2024 06/28/2026 1 8 Encounter Details Date Type Department Care Team (Latest Contact Info) Description 12/08/2024 2:25 PM EDT - 12/08/2024 11:59 PM EDT Hospital Encounter [facility] [address] [place] [phone] Iron deficiency anemia, unspecified iron deficiency anemia [...] drink first t cyndie in the morning (EYE-ACCOUNT STRATEGIST) to steady your nerves or to get [...] 500MG DAILY documented as of this encounter Plan of Treatment Upcoming Encounters Date Type Department Care Team (Late st Contact Info) Description 12/22/2024 3:00 PM EDT Appointment [facility] [address] [place] [address] 12/25/2024 10:00 AM EDT Office Visit [facility] [address], [address] [place] [address] Sara Johnson APRN [address] [place] [address] 01/08/2025 4:00 PM EST Office Visit [facility] [address], [address] [place] [address] Mitul Garza MD [address] [place] [address] 02/19/2025 9:00 AM EST Ancillary Procedure [facility] [address] [place] [address] 02/19/2025 10:00 AM EST Office Visit [facility] Special[facility] [address] [place] [address] Mariam Urban MD [address] [place] [address] 04/26/2025 11:10 AM EST Office Visit [facility] [address], [address] [place] [address] 05/16/2025 2:00 PM EDT Office Visit [facility] [address], [address] [place] [address] Marli Godoy MD [address] [place] [address] documented as of this encounter [...] documented as of this encounter Care Teams Bevel Gear Generator Operator Relationship Specialty Start Date End Date Bill Lamar MD [address] [place] [address] PCP - General 04/13/22 documented as of this encounter
--- OUTSIDE RECORDS SUMMARY | 2024-12-15 15:00 | XMS_ITS | Encounter Summary ---
Author Organization [facility] Address [address] [place] [address] Care Team Providers Care Sales Support Advisor Name Role Phone Bill Lamar MD Primary Care Provider Reason for Visit * Episode Based Medications (Routine) - Authorized Specialty Diagnoses / Procedures Referred By Contac t Referred To Contact Diagnoses Acute on chronic systolic heart failure Iron deficiency anemia, unspecified iron deficiency anemia type Procedures [place] IRON SUCROSE INJECTION Mitul Garza MD [address] [place] [address] Phone: tel: fax: Mitul Garza MD [address] [place] [address] Phone: tel: fax: Referral ID Status Reason Start Date Expiration Date V isits Requested Visits Authorized [id number] Authorized 11/14/2024 06/28/2026 1 8 Encounter Details Date Type Department Care Team (Latest Contact Info) Description 12/15/2024 3:00 PM EDT - 12/15/2024 11:59 PM EDT Hospital Encounter [facility] 1 [address] [place] [phone] Iron deficiency anemia, unspecified iron deficiency anemia [...] drink first t cyndie in the morning (EYE-PARALEGAL SPECIALIST) to steady your nerves or to get [...] Upcoming Encounters Date Type Department Care Team ([facility] st Contact Info) Description 12/22/2024 3:00 PM EDT Appointment [facility] [address] [place] [address] 12/25/2024 10:00 AM EDT Office Visit [facility] [place] [address], [address] [place] [address] Sara Johnson APRN [address] [place] [address] 01/08/2025 4:00 PM EST Office Visit [facility] [address], [address] [place] [address] Mitul Garza MD [address] [place] [address] 02/19/2025 9:00 AM EST Ancillary Procedure [facility] Specialties [address], [address] [place] [address] 02/19/2025 10:00 AM EST Office Visit [facility] Specialties [address], [address] [place] [address] Mariam Urban MD [address] [place] [address] 04/26/2025 11:10 AM EST Office Visit [facility]ties [address], [address] [place] [address] 05/16/2025 2:00 PM EDT Office Visit [facility] [address], [address] [place] [address] Marli Godoy MD [address] [place] [address] documented as of this encounter [...] documented as of this encounter Care Teams Sales Support Advisor Relationship Specialty Start Date End Date Bill Lamar MD [address] [place] [address] PCP - General 04/13/22 documented as of this encounter
--- OUTSIDE RECORDS SUMMARY | 2024-12-18 14:30 | XMS_ITS | Encounter Summary ---
Author Organization Healthcare Address [address] [place] [address] Care Team Providers Care Editorial Clerk Name Role Phone Bill Lamar MD Primary Care Provider [phone] Reason for Referral * Consultation (Routine) - Authorized Specialty Diagnoses / Procedures Referred By Wander t Referred To Contact Diagnoses Constipation, unspecified constipation type Elena Phillips APRN [address] [address] Phone: tel: fax: Referral ID Status Reason Start Date Expiration Date V isits Requested Visits Authorized [id number] Authorized 12/18/2024 06/19/2026 1 1 Reason for Visit * Reason Comments Dysphagia, pharyngoesophageal phase * Consultation (Routine) - Closed Specialty Diagnoses / Procedures Referred By Contac t Referred To Contact Gastroenterology Diagnoses Dysphagia, pharyngoesophageal phase Limited systemic sclerosis (CMS/HCC) Vonnie Ramos MD [address] [facility] [address] [place] [address] Phone: tel: fax: Kari Lozano MD [address] [facility] [address] [place] [address] Phone: tel: fax: Referral ID Status Reason Start Date Expiration Date V isits Requested Visits Authorized [id number] Closed Specialty Services Required 10/26/2024 04/27/2026 1 1 Encounter Details Date Type Department Care Team (Late st Contact Info) Description 12/18/2024 2:30 PM EDT Office Visit [facility] [address] [place] [address] PhillipsElena K, COSMETOLOGY PROFESSOR [address] [place] [address] Constipation, unspecified constipation type (Primary Dx) Social History Tobacco Use Types [...] drink first t cyndie in the morning (EYE-COUNTY TAX ASSESSOR) to steady your nerves or to get [...] information can be found at this website: https://www.Per Vicesube.com/watch?v=CHDx0mJ2v7k&t=49s Various options for purchase. All of these products are best purchased online. RefluxRaft Liquid Directions: Adults: take 5-10ml before bed to start Can be used up to 4 times a day, 30 min after each meal and before bed for breakthrough reflux To Purchase: www.refluxraBee There.InvestLab More information can be found at:http://www.refluxAdomik.com 2. Reflux Gourmet Flavor: Mint Chocolate Rescue, Vanilla Caramel Liquid Directions: Take 5-10ml before bed to start. Can be used up to 4 times a day, 30 min after each meal and beforebed for breakthrough reflux. To Purchase: wwwBDNA Search alginate reflux gourmet More information can be found at:https://refluxgourmet.com/ 3. Gaviscon Advance I RECOMMEND LIQUID FORM [...] before bed for breakthrough reflux. To Purchase: wwwBDNA Search alginate Gaviscon advance peppermint 500 ml More information can be found at: http://www.gajoblocalcon.co.uk documented in this encounter Plan of Treatment Upcoming Encounters Date Type Department Care Team ([facility] st Contact Info) Description 12/22/2024 3:00 PM EDT Appointment [facility] [address] [place] [address] 12/25/2024 10:00 AM EDT Office Visit [facility] [address], [address] [place] [address] Sara Johnson APRN [address] [place] [address] 01/08/2025 4:00 PM EST Office Visit [facility] [address], [address] [place] [address] Mitul Garza MD [address] [place] [address] 02/19/2025 9:00 AM EST Ancillary Procedure [facility] Medicine Specialties [address] [place] [address] 02/19/2025 10:00 AM EST Office Visit [facility] Medicine Specialties [address] [place] [address] Mariam Urban MD [address] [place] [address] 04/26/2025 11:10 AM EST Office [facility] Medicine Specialties [address] [place] [address] 05/16/2025 2:00 PM EDT Office Visit [facility] Medicine Specialties [address] [place] [address] Marli Godoy MD [address] [place] [address] Scheduled Orders Name Type Priority [...] Diagnoses Diagnosis Constipation, unspecified constipation type- Primary documented in this encounter Additional Health Concerns Assessment Noted Time PHQ-9 Depression Total Score: 0 09/28/19 25 3:19 PM EDT A fall risk assessment has been complete d for the patient 12/18/2024 2:23 PM EDT A Body Mass Index follow-up plan has been documented for the patient 12/18/2024 3:40 PM EDT documented as of this encounter Care Teams Editorial Clerk Relationship Specialty Start Date End Date Bill Lamar MD [address] [facility] [place] [address] PCP - General 04/13/22 documented as of this encounter
--- OUTSIDE RECORDS SUMMARY | 2024-12-22 11:43 | XMS_ITS | Encounter Summary ---
Author Organization [employer] ([place], [place], [place], [place]) Address [address] [place] [address] Care Team Providers Care Medical Practice Assistant Name Role Phone Unavailable Primary Care Provider Unavailabl e Encounter Details Date Type Department Care Team (Late st Contact Info) Description 09/30/2018 Transcribed Document [facility] [place] Family Medicine [address] [place] [address] ProviderLeyda MD [address] [place] [address] Social History Tobacco Use Types Packs/Day Years [...]
--- OUTSIDE RECORDS SUMMARY | 2024-12-22 11:43 | XMS_ITS | Encounter Summary ---
Author Organization [employer] ([place], [place], [place], [place]) Address [address] [place] [address] Care Team Providers Care Sales Representative Rural Power Name Role Phone Unavailable Primary Care Provider Unavailabl e Encounter Details Date Type Department Care Team (Late st Contact Info) Description 09/30/2018 Transcribed Document [facility] [address] [place] [address] ProviderLeyda MD [address] [place] [id number] Social History Tobacco Use Types Packs/Day Years [...] Clark MD - 09/30/2018 1:42 PM CDT [place] [id number] HECTOR MELINDA GORAN :1975 Visit Time:09/29/2018 Your [...] Care Team Discharge Follow Up Instructions: followup [id number] Activity: Discharge Activity: No heavy lifting over [...] made. Where: Bariatric Office - PHONE [address] [facility] [address] [place] [address]- Follow Up with Follow up with primary [...] including vitamins, herbs, eye drops, creams, and sedc-oli-tvhtnon medicines. ??? Previous problems your child or [...] 02/21/2006 Document Revised: 07/29/2016 Document Reviewed: 08/25/2015 RefferedAgent.com Interactive Patient Education ?? 2019 Unsocial. acetaminophen and hydrocodone (a SEET a MIN oh fen and genaro mirtha KOE done) Hycet, Lorcet, Porter, Verdrocet, Vicodin, Xodol, Zamicet What is the [...] may report side effects to FDA at 9-015-CCV-7154. What other drugs will affect acetaminophen and [...] affect acetaminophen and hydrocodone, including prescription and quer-fyf-gglidit medicines, vitamins, and herbal products. Not all [...] to ensure that the information provided by Plazes. ('Homeloctum') is accurate, up-to-date, and complete, but no guarantee is made to that effect. Drug information contained herein may be time sensitive. Gorb information has been compiled for use by healthcare practitioners and consumers in the [place] and therefore Gorb does not warrant that uses outside of the [place] are appropriate, unless specifically indicated otherwise. Gorb's drug information does not endorse drugs, diagnose patients or recommend therapy. NetLexs drug information is an informational resource designed [...] effective or appropriate for any given patient. Gorb does not assume any responsibility for any aspect of healthcare administered with the aid of information Gorb provides. The information contained herein is not intended to cover all possible uses, directions, precautions, warnings, drug interactions, allergic reactions, or adverse effects. If you have questions about the drugs you are taking, check with your doctor, nurse or pharmacist. Copyright 8216-8144 [facility] Active Endpoints. Version: 15.02. Revision Date: 01/09/2018.ondansetron (oral) (on [...] may report side effects to FDA at 4-084-CTT-9497. What other drugs will affect ondansetron? Ondansetron [...] interact with ondansetron. This includes prescription and dbvm-voj-kvgtotp medicines, vitamins, and herbal products. Give a [...] to ensure that the information provided by Plazes. ('Multum') is accurate, up-to-date, and complete, but no guarantee is made to that effect. Drug information contained herein may be time sensitive. Gorb information has been compiled for use by healthcare practitioners and consumers in the [place] and therefore Gorb does not warrant that uses outside of the [place] are appropriate, unless specifically indicated otherwise. NetLexs drug information does not endorse drugs, diagnose patients or recommend therapy. Can'tWait drug information is an informational resource designed [...] effective or appropriate for any given patient. Gorb does not assume any responsibility for any aspect of healthcare administered with the aid of information Gorb provides. The information contained herein is not intended to cover all possible uses, directions, precautions, warnings, drug interactions, allergic reactions, or adverse effects. If you have questions about the drugs you are taking, check with your doctor, nurse or pharmacist. Copyright 0713-7857 Plazes. Version: 13.01. Revision Date: 12/26/2015. Emergency Awareness [...] Assistance with quitting is available by contacting 0-166-YKXE-NOW. This is a free resource providing counseling, [...] was given the opportunity to ask questions. Patient/Save All Operator Name: Patient/Save All Operator Signature: Relationship to Patient: Clinician/Hospital Save All Operator Signature: Date: documented in this encounter Plan of Treatment Not on file documented as of this encounter Visit Diagnoses Not on filedocumented in this encounter
--- OUTSIDE RECORDS SUMMARY | 2024-12-22 11:43 | XMS_ITS | Encounter Summary ---
Author Organization [employer] ([place], [place], [place], [place]) Address [address] [place] [address] Care Team Providers Care Section Beamer Name Role Phone Unavailable Primary Care Provider Unavailabl e Encounter Details Date Type Department Care Team (Late st Contact Info) Description 09/04/2019 Transcribed Document [facility] Family Medicine [address] [place] [address] ProviderLeyda MD [address] [place], [place] [address] Social History Tobacco Use Types Packs/Day Years [...] Clark MD - 09/04/2019 10:12 AM CDT [facility] [place], [place] [id number] MELINDA APONTE :1975 Visit Time:09/04/2019 What to do next Follow-Up Appointments Follow Up with ZINA STEELE When Comments repeat EGD in 5 years biopsy report willl be mailed to you in 7-10 days Where: [address] [place] [address]- [employer] (1) Medications What How Much When Instructions [...] activities are safe for you. ??? Take bonr-pez-fmehylw and prescription medicines only as told by [...] 05/30/2001 Document Revised: 10/07/2017 Document Reviewed: 10/07/2017 [employer] Interactive Patient Education ?? 2020 Uploadcare. Silveira's Esophagus Silveira's esophagus occurs when the [...] Tomatoes and foods made with tomatoes. ? Placitas or spicy foods. ? Chocolate and peppermint. ??? Do not drink alcohol. General instructions ??? Take ioup-xtg-ylqello and prescription medicines only as told by [...] 05/13/2004 Document Revised: 06/19/2018 Document Reviewed: 06/19/2018 [employer] Interactive Patient Education ?? 2020 Uploadcare. Emergency Awareness and Preventative Care STROKE is [...] Assistance with quitting is available by contacting 5-203-EYEF-NOW. This is a free resource providing counseling, [...] was given the opportunity to ask questions. Patient/Line Maintainer Section Name: Patient/Line Maintainer Section Signature: Relationship to Patient: Clinician/Hospital Line Maintainer Section Signature: Date: documented in this encounter Plan of Treatment Not on file documented as of this encounter Visit Diagnoses Not on filedocumented in this encounter
--- OUTSIDE RECORDS SUMMARY | 2024-12-22 11:43 | XMS_ITS | Encounter Summary ---
Author Organization [employer] ([place], [place], [place], [place]) Address [address] [place] [address] Care Team Providers Care Hand Tufter Name Role Phone Unavailable Primary Care Provider Unavailabl e Encounter Details Date Type Department Care Team (Late st Contact Info) Description 09/03/2019 Transcribed Document [facility] [place] Family Medicine [address] [place] [address] ProviderLeyda MD [facility] [place] [address] Social History Tobacco Use Types Packs/Day Years [...] Source : Stated Height Entry Format : [place] Height, Feet : 5 ft(Converted to: 152 cm, 60 Inch) Height, Inches : 1 Inch(Converted to: 0 ft 1 Inch, 2.54 cm) Clinical Height : 154.94 cm Dustin Body Weight : 47 kg Vivian Torres RN - 09/03/2019 16:46 EDT Health Histories Smoking Status : Never (less than 100 in lifetime; none in last 30 days) Smokeless Tobacco Status : Never Implant/Device Type, Variety Saw Operator and Model : Vivian Muller RN - [...] Vivian Torres RN - 09/03/2019 16:46 EDT [place] Suicide Severity Rating Scale (C-SSRS) CSSRS Past Month Wish to be : No CSSRS Past Month Suicidal Thoughts : No CSSRS Lifetime Suicide Behavior : No Suicide Severity Rating Score : 0 Suicide Severity Rating : No Additional Care Required at this time Vivian Torers RN - 09/03/2019 16:46 EDT Psychosocial History [...] #2 Relationship : na Primary Language : [place] Preferred Communication Mode : Verbal Communication Barrier : None Scientific Laboratory Supervisor Needed : No Vivian Torres RN - [...] Risk Level : 0-24 Low Risk [place] Fall Interventions : Hourly comfort/safety rounds, Non-slip footwear, Reinforced to call for assistance before getting out of bed Vivian Torres RN - 09/03/2019 16:46 EDT documented in this encounter Plan of Treatment Not on file documented as of this encounter Visit Diagnoses Not on filedocumented in this encounter
--- OUTSIDE RECORDS SUMMARY | 2024-12-22 11:43 | XMS_ITS | Encounter Summary ---
Author Organization Healthcare Address [address] [place] [address] Care Team Providers Care Textile Bag Sewer Name Role Phone Bill Lamar MD Primary Care Provider [phone] Encounter Details Date Type Department Care Team (Late st Contact Info) Description 11/13/2024 Orders Only [facility] [place] [address] [place] [address] Brittaney Morales RN - Outpatient Center Acute on chronic systolic heart failure (CMS/HCC) (Primary Dx); Iron deficiency anemia, unspecified iron deficiency anemia type Social History Tobacco Use Types Packs/Day [...] drink first t cyndie in the morning (EYE-CHEMICAL ENGINEERING TECHNOLOGIST) to steady your nerves or to get [...] Upcoming Encounters Date Type Department Care Team ([facility] st Contact Info) Description 12/22/2024 3:00 PM EDT Appointment [facility] Infusion [address] [place] [address] 12/25/2024 10:00 AM EDT Office Visit [facility] [place] [address], [address] [place] [address] Sara Johnson, BLOCK MASON [address] [place] [address] 01/08/2025 4:00 PM EST Office Visit [facility] [address], [address] [place] [address] Mitul Garza MD [address] [place] [address] 02/19/2025 9:00 AM EST Ancillary Procedure [facility] Medicine Specialties [address]nd [place] [address] 02/19/2025 10:00 AM EST Office Visit [facility] Medicine Specialties [address], [address] [place] [address] Mariam Urban MD [address] [place] [address] 04/26/2025 11:10 AM EST Office Visit [facility] Medicine Specialties [address], [address] [place] [address] 05/16/2025 2:00 PM EDT Office Visit [facility] Medicine Specialties [address] [place] [address] Marli Godoy MD [address] [place] [address] documented as of this encounter Goals Goal Patient Goal Type Associated Problems Recent Progress Patient-Stated? Author Patient will verbalize understanding of orthotic wear , care and precautions. Occupational Therapy No Pat Bueno documented as of this encounter Visit Diagnoses Diagnosis Acute on chronic systolic heart failure- Primary Iron deficiency anemia, unspecified iron deficiency anemia type documented in this encounter Additional Health Concerns Assessment Noted Time PHQ-9 Depression Total Score: 0 09/28/19 25 3:19 PM EDT A fall risk assessment has been complete d for the patient 10/26/2024 10:08 AM EDT A Body Mass Index follow-up plan has been documented for the patient 10/26/2024 4:38 PM EDT documented as of this encounter Care Teams Textile Bag Sewer Relationship Specialty Start Date End Date Bill Lamar MD [address] [facility] [place] [address] PCP - General 04/13/22 documented as of this encounter
--- OUTSIDE RECORDS SUMMARY | 2024-12-22 11:43 | XMS_ITS | Encounter Summary ---
Author Organization [employer] ([place], [place], [place], [place]) Address [address] [place] [address] Care Team Providers Care Small Appliance Assembly Supervisor Name Role Phone Unavailable Primary Care Provider Unavailabl e Encounter Details Date Type Department Care Team (Late st Contact Info) Description 09/29/2018 Transcribed Document [facility] [place] [address] [place] [address] ProviderLeyda MD [facility] [place] [address] Social History Tobacco Use Types Packs/Day Years [...] APONTE /Sex: 1975 Female Med Rec #: [id number] Physician: SAMAN THOMPSON MD Financial #: [id number] Pt. Type: O Room/Bed: [facility]/4 Admit/Disch: 09/29/18 11:27:00 - Institution: [facility] PreOp Case Times Entry 1 In Preop 09/29/18 11:40:00 Ready for Holding n/a Room Patient Ready for 09/29/18 12:26:00 Surgery Patient Out of Preop 09/29/18 14:19:00 Patient Out of n/a Holding Room Last Modified By: ALYSE MIKE 09/29/18 14:31:43 SJJosef PreOp Case Times Audit 09/29/18 14:31:43 Hide Trimmer: HILLARY Modifier: [email or web address] <+> 1 Patient Out of Preop Finalized By: ALYSE MIKE Document Signatures Signed By: ALYSE MIKE 09/29/18 14:31 documented in this encounter Plan of Treatment Not on file documented as of this encounter Visit Diagnoses Not on filedocumented in this encounter
--- OUTSIDE RECORDS SUMMARY | 2024-12-22 11:43 | XMS_ITS | Encounter Summary ---
Author Organization [employer] ([place], [place], [place], [place]) Address [address] [place] [address] Care Team Providers Care Land Degradation Analyst Name Role Phone Unavailable Primary Care Provider Unavailabl e Encounter Details Date Type Department Care Team (Late st Contact Info) Description 09/29/2018 Transcribed Document [facility] [place] Family Medicine [address] [place] [address] ProviderLeyda MD [address] [place] [address] Social History Tobacco Use Types Packs/Day Years [...]
--- OUTSIDE RECORDS SUMMARY | 2024-12-22 11:43 | XMS_ITS | Encounter Summary ---
Author Organization [employer] ([place], [place], [place], [place]) Address [address] [place] [address] Care Team Providers Care Teacher Nursery School Name Role Phone Unavailable Primary Care Provider Unavailabl e Encounter Details Date Type Department Care Team (Late st Contact Info) Description 09/29/2018 Transcribed Document [facility] [place] [address] [place] [address] ProviderLeyda MD [address] [place] [id number] Social History Tobacco Use Types Packs/Day Years [...] Clark MD - 09/29/2018 2:43 PM CDT [facility] [place] IntraOp Summary Primary Physician: SAMAN THOMPSON MD Finalized Date/Time: 09/29/18 15:47:14 Pt. Name: FADI MELINDA WOODY /Sex: 1975 Female Med Rec #: [id number] Physician: SAMAN THOMPSON MD Financial #: [id number] Pt. Type: O Room/Bed: [facility]/ Admit/Disch: 09/29/18 11:27:00 - Institution: [facility] IntraOp Case Attendance Entry 1 Entry 2 Entry 3 Case Attendee DONNA, SAMAN, MD ZARAK, NATE, MD MYRON, STEPHANIE A, NA Role Performed Surgeon/Proceduralist, Surgeon/Proceduralist, DRAMATIC CRITIC/Nurse Head Filter Press Tender First Second Time In 09/29/18 14:23:00 09/29/18 [...] PERSON, Angelia Mejia, Scrub JAMIE CAST, Tech Market Maker Role Performed Head Counselor, First Scrub, First Scrub, Second Time In [...] Holliday, Stewart R, RN KEVON HINES V, DRAMATIC CRITIC CARE Role Performed Senior Program Analyst, Ancillary Head Counselor, Second DRAMATIC CRITIC/Nurse Head Filter Press Tender Time In 09/29/18 14:23:00 09/29/18 14:55:00 09/29/18 15:25:00 Time Out 09/29/18 15:47:00 09/29/18 15:12:00 09/29/18 15:47:00 Procedure Hernia Repair Hernia Repair Hernia Repair Paraesophageal Paraesophageal Paraesophageal Laparoscopi Laparoscopi Laparoscopi Other Attendee Superficial Wound Closed By: Last Modified By: ALPHONSE PERSON, ALPHONSE PRICE, ALPHONSE PRICE RN 09/29/18 15:47:11 09/29/18 15:13:17 09/29/18 15:47:11 [facility] IntraOp Case Attendance Audit 09/29/18 15:47:11 Simulation Educator: TIP Modifier: [email or web address] 1 <+> Time Out [...] Procedure Hernia Repair Paraesophageal Laparoscopi 09/29/18 15:26:01 Simulation Educator: TIP Modifier: [email or web address] 3 <+> Time Out 3 <*> Procedure Hernia Repair Paraesophageal Laparoscopi <+> 9 Case Attendee <+> 9 Role Performed <+> 9 Time In <+> 9 Procedure 09/29/18 15:13:17 Simulation Educator: TIP Modifier: [email or web address] 1 <*> Procedure Hernia [...] [facility] IntraOp Case Times Audit 09/29/18 15:47:10 Simulation Educator: [email or web address] Modifier: [email or web address] <+> 1 Out Room Time <+> 1 Stop Time 09/29/18 15:41:42 Simulation Educator: [email or web address] Modifier: [email or web address] <+> 1 Stop Time [facility] IntraOp Cautery Entry 1 ESU Identification Cautery Type Monopolar ESU ID Number [id number] ID Type Hospital Number Cautery Settings Cut [...] [facility] IntraOp Counts Final Audit 09/29/18 15:33:34 Simulation Educator: TIP Modifier: TIP 1 <*> Procedure Hernia [...] Dressing Item 2x2's Applied By Angelia Mayers Market Maker Other Comments 2X2 COVAERMS TO TROCAR SITES [...] RN 09/29/18 14:47:50 [facility] IntraOp General Case Intermediate Teacher 1 Case Information OR OR 03 SJE [...] Other Implant TISSUE REINF FLAT SHT Identification [id number] Description Implant Quantity 1 Implant Site OPSITE Implant [id number] Identification Serial Number Implant [employer] [place] [employer]:Med Prdt Identification Food Quality Tester Name: Implant [id number] Identification Catalog Number Implant Has an Yes [...] Intra Op Sign Out Audit 09/29/18 15:47:07 Simulation Educator: TIP Modifier: [email or web address] <+> 1 RN Sign [...] [facility] IntraOp Surgical Procedures Audit 09/29/18 15:41:43 Simulation Educator: TIP Modifier: TIP <+> 1 Stop SJE [...] 09/29/18 15:47 Electronically signed by [employer] [facility] Conversion Hand Printed Circuit Board Assembler Cerner at 06/22/2022 9:32 AM CDT documented in this encounter Plan of Treatment Not on file documented as of this encounter Visit Diagnoses Not on filedocumented in this encounter
--- OUTSIDE RECORDS SUMMARY | 2024-12-22 11:43 | XMS_ITS | Patient Health Record ---
Author Organization [facility] Address [address] [place] [address] Care Team Providers Care Gis Developer Name Role Phone Linnette Norton Unavailable [phone] Allergies Allergen (clinical drug ingredient) Drug/Non Drug [...] Problem Status W/U Status Risk Notes Problem Gynecological examination normal ([id number] ) Cervical smear, as part of routine gynecological examination (Z01.419) 12/23/19 19 Active confirmed Annual without abnormal findings Plan Of Treatment No Information Insurance Providers Payer Name Payer Address Payer Phone Subscriber Number Group Number Insured Name Patient Relationship to Insured Coverage Start Date Coverage End Date Bud PPO [address] [place] [address] [id number] Melinda Aponte Self - patient is the insured Medical (General) History Medical History History ICD Code Acid Reflux Anxiety / Depression Blood transfusions Uterine fibroid Irritable Bowel Fatigue Insomnia Hernia Surgical History Surgery Date(Month/Year) vestibulectomy 2005 breast lift/augmentation TRH hernia repair 09/2018 Hospitalization History Reason Date(Month/Year) c/s
--- OUTSIDE RECORDS SUMMARY | 2024-12-22 11:43 | XMS_ITS | Clinical Summary ---
Author Organization [facility] Address [address] [place] [address] Care Team Providers Care Cash Application Representative Name Role Phone Ward Somers MD Unavailable [phone] Bill Lamar MD Primary Care Provider [phone] Allergies Active Allergy Reactions Criticality Noted Date Comments Lamotrigine Hives,Itching,Palpit atio ns High 08/31/2021 Other Reaction(s): Not available Sidman Hives Low 10/28/2021 Other Reaction(s): Not available, Other - please document in the comment field Swollen neck Swollen neck Medications acetaminophen (Tylenol 8 Hour) 650 MG ER tablet Take 650 mg by mouth every 8 (eight) hours if needed. Active Collagen-Holloway- Hyaluronic Acid (Move Free [employer]) 40-5-3.3 MG tablet Active Cequa 0.09 % [...] (1 of 2) 2023 Mammogram 04/13/2023 04/13/2022 Depression Risk Screening 03/07/2024 SDOH Screening 03/07/2024 COVID-19 Vaccine ( - season) 2024 01/23/2023, 12/12/2021, 07/17/2021, Additional history exists Influenza Vaccine (#1) 2024 , 01/22/2023, 01/19/2022 Colonoscopy 04/29/2033 04/29/2023 Colorectal Cancer [...] screening Electronically Signed on04/29/2023 12:16 [facility] Pepe Green MD ENDOSCOPY PROCEDURE ORDERABLE S Final Result from Last 3 Months or Most Recently Relevant to Health Maintenance Insurance [facility] Care Teams Cash Application Representative Relationship Specialty Start Date End Date Bill Lamar MD [address] [facility] [address] [place] [address] PCP - General Internal Medicine 07/07/22 Ward Somers MD [address] [place] [address] Referring Physician Gastroenterology 07/07/22
--- OUTSIDE RECORDS SUMMARY | 2024-12-22 11:43 | XMS_ITS | Encounter Summary ---
Author Organization [employer] ([place], [place], [place], [place]) Address [address] [place] [address] Care Team Providers Care Hearing Screen Coordinator Name Role Phone Unavailable Primary Care Provider Unavailabl e Encounter Details Date Type Department Care Team (Late st Contact Info) Description 09/29/2018 Transcribed Document [facility] [place] [address] [place] [address] ProviderLeyda MD [facility] [place] [address] Social History Tobacco Use Types Packs/Day Years [...] APONTE /Sex: 1975 Female Med Rec #: [id number] Physician: SAMAN THOMPSON MD Financial #: [id number] Pt. Type: O Room/Bed: [facility]/ Admit/Disch: 09/29/18 11:27:00 - Institution: [facility] [place] PACU Case Times Entry 1 In PACU I 09/29/18 15:48:00 Ready for PACU 09/29/18 16:45:00 Discharge Discharge from PACU 09/29/18 17:10:00 I Last Modified By: Michelle Toribio Rn Patient Care Bedside 09/29/18 17:01:52 [facility] Main OR PACU Case Times Audit 09/29/18 17:17:13 Head Start Coordinator: SCOUT Modifier: SHERRYTIPTON <+> 1 Discharge from PACU I 09/29/18 17:01:52 Head Start Coordinator: SCOUT Modifier: SHERRYTIPTON <+> 1 Ready for PACU Discharge [facility] Main OR PACU Acuity Entry 1 Start Time 09/29/18 16:45:00 Stop Time 09/29/18 17:10:00 Acuity Level [facility] PACU Acuity I Last Modified By: Michelle Toribio Rn Patient Care Bedside 09/29/18 17:01:58 [facility] Main OR PACU Acuity Audit 09/29/18 17:17:22 Head Start Coordinator: SCOUT Modifier: SHERRYTIPTON <+> 1 Stop Time Finalized By: Michelle Toribio Rn Patient Care Bedside Document Signatures Signed By: Michelle Toribio Rn Patient Care Bedside 09/29/18 17:17 documented in this encounter Plan of Treatment Not on file documented as of this encounter Visit Diagnoses Not on filedocumented in this encounter
--- OUTSIDE RECORDS SUMMARY | 2024-12-22 11:43 | XMS_ITS | Encounter Summary ---
Author Organization [employer] ([place], [place], [place], [place]) Address [address] [place] [address] Care Team Providers Care Document Imaging Specialist Name Role Phone Unavailable Primary Care Provider Unavailabl e Encounter Details Date Type Department Care Team (Late st Contact Info) Description 09/30/2018 Transcribed Document [facility] [place] Family Medicine [address] [place] [address] ProviderLeyda MD [address] [place] [address] Social History Tobacco Use Types Packs/Day Years [...] EDT Electronically signed by Ernesto Betancourt Conversion Radiology Interventional Physician Hali at 06/22/2022 9:16 AM CDT documented in this encounter Plan of Treatment Not on file documented as of this encounter Visit Diagnoses Not on filedocumented in this encounter
--- OUTSIDE RECORDS SUMMARY | 2024-12-22 11:43 | XMS_ITS | Encounter Summary ---
Author Organization [employer] ([place], [place], [place], [place]) Address [address] [place] [address] Care Team Providers Care Electronic Health Records Specialist Name Role Phone Unavailable Primary Care Provider Unavailabl e Encounter Details Date Type Department Care Team (Late st Contact Info) Description 09/30/2018 Transcribed Document [facility] [place] [facility] [place] [address] ProviderLeyda MD [address] [place] [address] Social History Tobacco Use Types Packs/Day Years [...]
--- OUTSIDE RECORDS SUMMARY | 2024-12-22 11:43 | XMS_ITS | Encounter Summary ---
Author Organization [employer] ([place], [place], [place], [place]) Address [address] [place] [address] Care Team Providers Care Hardboard Press Operator Name Role Phone Unavailable Primary Care Provider Unavailabl e Encounter Details Date Type Department Care Team (Late st Contact Info) Description 09/30/2018 Transcribed Document [facility] [place] Family Medicine [address] [place] [address] ProviderLeyda MD [address] [place] [address] Social History Tobacco Use Types Packs/Day Years Used Date Smoking Tobacco: Never Assessed Comments Unknown Sex and Gender Information Value Date Recorded Sex Assigned at Not on file Legal Sex Female 6:21 PM CDT Gender Identity Not on file Sexual Orientation Not on file documented as of this encounter Miscellaneous Notes * Cerner Conversion Note - Leyda ProviderMD - 09/30/2018 2:00 AM CDT Bingo Floater Details Entered On: 09/30/2018 0:46 EDT Performed [...] Lawson Garces RN - 09/30/2018 0:46 EDT Electronically signed by Ernesto Betancourt Conversion Supervisor Cell Maintenance Cerner at 06/22/2022 9:28 AM CDT documented in this encounter Plan of Treatment Not on file documented as of this encounter Visit Diagnoses Not on filedocumented in this encounter
--- OUTSIDE RECORDS SUMMARY | 2024-12-22 11:43 | XMS_ITS | Encounter Summary ---
Author Organization [employer] ([place], [place], [place], [place]) Address [address] [place] [address] Care Team Providers Care Purification Operator Name Role Phone Unavailable Primary Care Provider Unavailabl e Encounter Details Date Type Department Care Team (Late st Contact Info) Description 09/04/2019 Transcribed Document [facility] [place] Medicine [address] [place] [address] ProviderLeyda MD [facility] [place] [address] Social History Tobacco Use Types Packs/Day Years [...] Clark MD - 09/04/2019 9:45 AM CDT [facility] PACU Summary Primary Physician: ZINA STEELE MD-GAE Finalized Date/Time: 09/04/19 10:20:18 Pt. Name: MELINDA APONTE D.O.B./Sex: 1975 Female Med Rec #: [id number] Physician: ZINA STEELE MD-GAE Financial #: [id number] Pt. Type: O Room/Bed: END/ Admit/Disch: 09/04/19 08:25:00 - Institution: [facility] PACU Case Times Entry 1 In PACU I 09/04/19 09:56:00 Ready for PACU 09/04/19 10:20:00 Discharge Discharge from PACU 09/04/19 10:20:00 I Last Modified By: Heather Hernandez RN 09/04/19 10:20:14 [facility] PACU Case Times Audit 09/04/19 10:20:14 Hardening Machine Operator: [id number] Modifier: [id number] <+> 1 Ready for PACU Discharge <+> 1 Discharge from PACU I Finalized By: Heather Hernandez, RN Document Signatures Signed By: Heather Hernandez RN 09/04/19 10:20 documented in this encounter Plan of Treatment Not on file documented as of this encounter Visit Diagnoses Not on filedocumented in this encounter
--- OUTSIDE RECORDS SUMMARY | 2024-12-22 11:43 | XMS_ITS | Encounter Summary ---
Author Organization [employer] ([place], [place], [place], [place]) Address [address] [place] [address] Care Team Providers Care Home Delivery Driver Name Role Phone Unavailable Primary Care Provider Unavailabl e Encounter Details Date Type Department Care Team (Late st Contact Info) Description 09/04/2019 Transcribed Document [facility] [place] [facility] [place] [address] ProviderLeyda MD [address] [place] [address] Social History Tobacco Use Types Packs/Day Years [...] activities are safe for you. ??? Take uapg-slr-rmqxzyl and prescription medicines only as told by [...] 05/30/2001 Document Revised: 10/07/2017 Document Reviewed: 10/07/2017 [employer] Interactive Patient Education ? 2020 [employer]. Silveira's Esophagus Silveira's esophagus occurs when the [...] and foods made with tomatoes. ? [place] or spicy foods. ? Chocolate and peppermint. ??? Do not drink alcohol. General instructions ??? Take eags-dof-yhqeimr and prescription medicines only as told by [...] 05/13/2004 Document Revised: 06/19/2018 Document Reviewed: 06/19/2018 [employer] Interactive Patient Education ? 2019 [employer]. Electronically signed by Ernesto Betancourt Conversion Industrial Gas Fitter Helper Cerner at 06/22/2022 9:39 AM CDT documented in this encounter Plan of Treatment Not on file documented as of this encounter Visit Diagnoses Not on filedocumented in this encounter
--- OUTSIDE RECORDS SUMMARY | 2024-12-22 11:43 | XMS_ITS | Encounter Summary ---
Author Organization [employer] ([place], [place], [place], [place]) Address [address] [place] [address] Care Team Providers Care Member Of Parliament Name Role Phone Unavailable Primary Care Provider Unavailabl e Encounter Details Date Type Department Care Team (Late st Contact Info) Description 09/04/2019 Transcribed Document [facility] [place] Family Medicine [address] [place] [address] ProviderLeyda MD [address] [place] [phone] Social History Tobacco Use Types Packs/Day Years Used Date Smoking Tobacco: Never Assessed Comments Unknown Sex and Gender Information Value Date Recorded Sex Assigned at Not on file Legal Sex Female 6:21 PM CDT Gender Identity Not on file Sexual Orientation Not on file documented as of this encounter Miscellaneous Notes * Cerner Conversion Note - Leyda ProviderMD - 09/04/2019 9:45 AM CDT [facility] Endo IntraOp Summary Primary Physician: ZINA STEELE MD-GAE Finalized Date/Time: 09/26/19 10:38:41 Pt. Name: FADI MELINDA WOODY /Sex: 1975 Female Med Rec #: [id number] Physician: ZINA STEELE MD-GAE Financial #: [id number] Pt. Type: O Room/Bed: END/ Admit/Disch: 09/04/19 08:25:00 - 09/04/19 16:27:00 Institution: [facility] Endo - Case Attendance Entry 1 Entry 2 Entry 3 Case Attendee ZINA STEELE MD-GAE MILLER, MELISSA A, RN WURTELE, MARY L. Role Performed Surgeon/Proceduralist, Group Fitness Department Head, First Scrub, First First Time In 09/04/19 [...] MARIE LYNNETTE, CRNA Role Performed Anesthesiologist of HORTICULTURE INSTRUCTOR/Nurse Flag Decorator Record Time In 09/04/19 09:37:00 09/04/19 09:37:00 Time Out 09/04/19 09:54:00 09/04/19 09:54:00 Procedure Esophagogastroduodenosco Esophagogastroduodenosco py, Esophageal Biopsy py, Esophageal Biopsy Other Attendee Superficial Wound Closed By: Last Modified By: STEPHENIE EVANGELISTA RN MILLER, MELISSA A, RN 09/04/19 09:52:13 09/04/19 09:52:13 [facility] Endo - Case Attendance Audit 09/04/19 09:52:13 Assembler Adjuster: KARLY Modifier: TONJAMA 1 <+> Time Out 1 <*> Procedure Esophagogastroduodenoscopy, Esophageal Biopsy 2 <+> Time Out 2 <*> Procedure Esophagogastroduodenoscopy, Esophageal Biopsy 3 <+> Time Out 3 <*> Procedure Esophagogastroduodenoscopy, Esophageal Biopsy 4 <+> Time Out 4 <*> Procedure Esophagogastroduodenoscopy, Esophageal Biopsy 5 <+> Time Out 5 <*> Procedure Esophagogastroduodenoscopy, Esophageal Biopsy 09/04/19 09:49:17 Assembler Adjuster: KARLY Modifier: TONJAMA 1 <+> Time In 1 <*> Procedure Esophagogastroduodenoscopy 2 <+> Time In 2 <*> Procedure Esophagogastroduodenoscopy 3 <+> Time In 3 <*> Procedure Esophagogastroduodenoscopy 4 <+> Time In 4 <*> Procedure Esophagogastroduodenoscopy 5 <+> Time In 5 <*> Procedure Esophagogastroduodenoscopy 09/04/19 09:38:36 Assembler Adjuster: KARLY Modifier: KARLY <+> 2 Case Attendee <+> 2 Role Performed <+> 2 Procedure <+> 3 Case Attendee <+> 3 Role Performed <+> 3 Procedure <+> 4 Case Attendee <+> 4 Role Performed <+> 4 Procedure <+> 5 Case Attendee <+> 5 Role Performed <+> 5 Procedure [facility] Endo - Case times Entry 1 Patient In Room Time 09/04/19 09:37:00 Out Room Time 09/04/19 09:54:00 Anesthesia Start Time 09/04/19 09:37:00 Stop Time 09/04/19 09:54:00 Surgery / Procedure Times Start Time 09/04/19 09:45:00 Stop Time 09/04/19 09:51:00 Last Modified By: STEPHENIE EVANGELISTA RN 09/04/19 09:52:02 [facility] Endo - Case times Audit 09/04/19 09:52:02 Assembler Adjuster: KARLY Modifier: KARLY <+> 1 Out Room Time <+> 1 Stop Time <+> 1 Stop Time 09/04/19 09:45:29 Assembler Adjuster: KARLY Modifier: KARLY <+> 1 Start Time [facility] Endo - Cultures and Spec Summary Entry 1 Cultrures and Specimens Specimen Ordered: Yes Test(s) Routine/Path-Lab Requested/Final Disposition Last Modified By: STEPHENIE EVANGELISTA RN 09/04/19 09:49:51 [facility] Endo - Delays Entry 1 Delay Reason Other, No Delay Duration 0 Minute(s) Last Modified By: STEPHENIE EVANGELISTA RN 09/04/19 09:38:45 [facility] Endo - Departure from OR Entry 1 Integumentary Assessment Integumentary WDL Assessment WDL Transfer/Handoff Transfer to PACU Phase I Handoff Method Bedside/Face to face Post-op Transport Stretcher/Gurney Via Patient Transport STEPHENIE EVANGELISTA RN, Accompanied by EMMANUEL RAYMOND CRNA Last Modified By: STEPHENIE EVANGELISTA RN 09/04/19 09:38:48 [facility] Endo - Endoscopy Details Entry 1 Abdomen Procedure Soft, Non-Tender Assessment Procedure Abdomen 09/04/19 09:38:00 Assessment D/T Radio Frequency Ablation Abdominal Pressure Last Modified By: STEPHENIE EVANGELISTA RN 09/04/19 09:38:52 [facility] Endo - Fire Risk Assessment Entry 1 [...] Modified By: STEPHENIE EVANGELISTA RN 09/04/19 09:38:54 [facility] Endo - General Case Transmission Rebuilder 1 Case Information OR Endo [facility] Case Level 1 Room Verified Yes Wound Class II - Clean-Contaminated Specialty SN Gastroenterology Anesthesia Type General ASA Class 2 Diagnosis Preop Diagnosis hx of barretts Postop Same As Preop Yes Postop Diagnosis hx of barretts Last Modified By: STEPHENIE EVANGELISTA RN 09/04/19 09:39:11 [facility] Endo - Intraoperative Assessment Entry 1 Valid History / Yes Physical in Chart Preoperative Yes Checklist Reviewed/Evaluated Patient is Latex No Sensitive Level of WDL Consciousness (WDL = Alert, Oriented to Person, Place, and Time) Last Modified By: STEPHENIE EVANGELISTA RN 09/04/19 09:39:12 [facility] Endo - Intraoperative Equipment Entry 1 Equipment Intraop Monitoring Electrocardiogram Three lead placement (ECG) Electrode Placement Blood Pressure Arm, left upper Location Pulse Oximeter Hand, right Probe Site Antiembolic Devices Scopes Flexible Endoscopes Gastroscope Used Scope Serial A Number/Identificatio n Number Photo/Video Documentation Photo Yes Video No Last Modified By: STEPHENIE EVANGELISTA RN 09/04/19 09:39:20 [facility] Endo - Intraoperative Equipment Audit 09/04/19 09:39:20 Assembler Adjuster: KARLY Modifier: KARLY <+> 1 Photo <+> 1 Video <+> 1 Blood Pressure Location <+> 1 Pulse Oximeter Probe Site <+> 1 Flexible Endoscopes Used <+> 1 Scope Serial Number/Identification Number [facility] Endo - Patient Positioning Entry 1 Procedure [...] Verified by Surgeon Last Modified By: STEPHENIE EVANGELSITA RN 09/04/19 09:49:18 [facility] Endo - Patient Positioning Audit 09/04/19 09:49:18 Assembler Adjuster: KARLY Modifier: KARLY 1 <*> Procedure Esophagogastroduodenoscopy [facility] Endo - Sign In Entry 1 Patient, Site, Yes Procedure Identified Surgical Consent Yes Confirmed Surgical Site N/A Marked by person performing procedure Airway Hypothermia Risk No Warming Measures No Taken Last Modified By: STEPHENIE EVANGELISTA RN 09/04/19 09:39:28 [facility] Endo - Sign Out Entry 1 RN [...] Modified By: STEPHENIE EVANGELISTA RN 09/04/19 09:52:08 [facility] Endo - Surgical Procedures Entry 1 Entry [...] MELISSA A, RN 09/04/19 09:52:11 09/04/19 09:52:11 [facility] Endo - Surgical Procedures Audit 09/04/19 09:52:11 Assembler Adjuster: KARLY Modifier: MILLERMA <+> 1 Stop <+> 2 Stop 09/04/19 09:49:16 Assembler Adjuster: KARLY Modifier: MILLERMA <+> 2 Procedure <+> 2 Primary Procedure <+> 2 Primary Surgeon <+> 2 Specialty <+> 2 Start <+> 2 Wound Class <+> 2 Anesthesia Type <+> 2 Additional Procedure Description 09/04/19 09:45:40 Assembler Adjuster: KARLY Modifier: [email or web address] <+> 1 Start [facility] Endo - Time Out Entry 1 Procedure [...] Modified By: STEPHENIE EVANGELISTA RN 09/04/19 09:49:18 [facility] Endo - Time Out Audit 09/04/19 09:49:18 Assembler Adjuster: KARLY Modifier: KARLY 1 <*> Procedure to [...]
--- OUTSIDE RECORDS SUMMARY | 2024-12-22 11:43 | XMS_ITS | Encounter Summary ---
Author Organization [employer] ([place], [place], [place], [place]) Address [address] [place] [address] Care Team Providers Care Boat Joiner Helper Name Role Phone Unavailable Primary Care Provider Unavailabl e Encounter Details Date Type Department Care Team (Late st Contact Info) Description 09/04/2019 Transcribed Document [facility] Family Medicine [address] [place] [address] ProviderLeyda MD [facility] [place], [place] [address] Social History Tobacco Use Types Packs/Day Years Used Date Smoking Tobacco: Never Assessed Comments Unknown Sex and Gender Information Value Date Recorded Sex Assigned at Not on file Legal Sex Female 6:21 PM CDT Gender Identity Not on file Sexual Orientation Not on file documented as of this encounter Miscellaneous Notes * Cerner Conversion Note - Leyda ProviderMD - 09/04/2019 9:00 AM CDT [facility] Alyssa PreOp Summary Primary Physician: ZINA STEELE MD-GAE Finalized Date/Time: 09/04/19 09:27:22 Pt. Name: MELINDA APONTEO.B./Sex: 1975 Female Med Rec #: [id number] Physician: ZINA STEELE MD-GAE Financial #: [id number] Pt. Type: O Room/Bed: END/ Admit/Disch: 09/04/19 08:25:00 - Institution: [facility] Alyssa PreOp Case Times Entry 1 In Preop 09/04/19 08:54:00 Ready for Holding n/a Room Patient Ready for 09/04/19 09:26:00 Surgery Patient Out of Preop 09/04/19 09:26:00 Patient Out of n/a Holding Room Last Modified By: Seema Sheriff RN 09/04/19 09:27:18 Finalized By: Seema Sheriff RN Document Signatures Signed By: Seema Sheriff RN 09/04/19 09:27 Electronically signed by Serafin [facility] Conversion Electronic Lab Technician Cerner at 06/22/2022 9:18 AM CDT documented in this encounter Plan of Treatment Not on file documented as of this encounter Visit Diagnoses Not on filedocumented in this encounter
--- OUTSIDE RECORDS SUMMARY | 2024-12-22 11:43 | XMS_ITS | Encounter Summary ---
Author Organization [facility] Address [address] [place] [address] Care Team Providers Care Senior Sales Assistant Name Role Phone Bill Lamar MD Primary Care Provider [phone] Encounter Details Date Type Department Care Team (Late st Contact Info) Description 11/13/2024 Orders Only [facility] [place] [address] [place] [address] Mitul Garza MD [address] [place] [address] Social History Tobacco Use Types Packs/Day Years [...] drink first t cyndie in the morning (EYE-TOOL MAKER BENCH) to steady your nerves or to get [...] Upcoming Encounters Date Type Department Care Team ([facility] Contact Info) Description 12/22/2024 3:00 PM EDT Appointment [facility] [address] [place] [address] 12/25/2024 10:00 AM EDT Office Visit [facility] [address], [address] [place] [address] Sara Johnson APRN [address] [place] [address] 01/08/2025 4:00 PM EST Office Visit [facility] [address], [address] [place] [id number] Mitul Garza MD [address] [place] [address] 02/19/2025 9:00 AM EST Ancillary Procedure [facility] [address] [place] [address] 02/19/2025 10:00 AM EST Office Visit [facility] [address] [place] [address] Mariam Urban MD [address] [place] [address] 04/26/2025 11:10 AM EST Office Visit [facility] [address] [place] [address] 05/16/2025 2:00 PM EDT Office Visit [facility] [address] [place] [address] Marli Godoy MD [address] [place] [address] documented as of this [...] documented as of this encounter Care Teams Senior Sales Assistant Relationship Specialty Start Date End Date Bill Lamar MD [address] [facility] [place] [address] PCP - General 04/13/22 documented as of this encounter
--- OUTSIDE RECORDS SUMMARY | 2024-12-22 11:43 | XMS_ITS | Encounter Summary ---
Author Organization [employer] ([place], [place], [place], [place]) Address [address] [place] [address] Care Team Providers Care Buffer Automatic Name Role Phone Unavailable Primary Care Provider Unavailabl e Encounter Details Date Type Department Care Team (Late st Contact Info) Description 09/30/2018 Transcribed Document [facility] [place] [facility] [place] [address] ProviderLeyda MD [address] [place] [address] Social History Tobacco Use Types Packs/Day Years [...] including vitamins, herbs, eye drops, creams, and tnma-ukq-rwzrjaq medicines. ??? Previous problems your child or [...] 08/25/2015 [employer] Interactive Patient Education ? 2019 [employer] documented in this encounter Plan of Treatment Not on file documented as of this encounter Visit Diagnoses Not on filedocumented in this encounter
--- OUTSIDE RECORDS SUMMARY | 2024-12-22 11:43 | XMS_ITS | Encounter Summary ---
Author Organization [employer] ([place], [place], [place], [place]) Address [address] [place] [address] Care Team Providers Care Fibre Technologist Name Role Phone Unavailable Primary Care Provider Unavailabl e Encounter Details Date Type Department Care Team (Late st Contact Info) Description 09/04/2019 Transcribed Document [facility] [place] [address] [place] [address] ProviderLeyda MD [address] [place] [address] Social History Tobacco Use Types Packs/Day Years [...] Source : Stated Height Entry Format : [place] Height, Feet : 5 ft(Converted to: 152 cm, 60 Inch) Height, Inches : 1 Inch(Converted to: 0 ft 1 Inch, 2.54 cm) Clinical Height : 154.94 cm Weight Source : Standing scale Weight Entry Format : [place] Clinical Dosing Weight : 80.18 kg Weight, Pounds : 176.4 lb Body Surface Area (BSA) : 1.79 m2 Body Mass Index : 33.4 kg/m2 (HI) [place] Body Weight : 47 kg Seema Sheriff RN - 09/04/2019 9:11 EDT Health Histories Smoking Status : Never (less than 100 in lifetime; none in last 30 days) Smokeless Tobacco Status : Never Implant/Device Type, Walking Dragline Operator and Model : laurenceteddy Seema Sheriff RN [...] Seema Sheriff RN - 09/04/2019 9:11 EDT [place] Suicide Severity Rating Scale (C-SSRS) CSSRS Past [...] #2 Relationship : na Primary Language : Uzbek Preferred Communication Mode : Verbal Communication Barrier : None Multicraft Operator Needed : No Seema Sheriff RN - [...] Scale Risk Level : 25-45 Medium Risk [place] Fall Interventions : Bed in low position, Call device within reach, Wheels locked Seema Sheriff RN - 09/04/2019 9:11 EDT Valuables and Belongings Valuables and Belongings : Clothing Clothing : Common streetwear Clothing Disposition : Bedside Seema Shreiff RN - 09/04/2019 9:11 EDT documented in this encounter Plan of Treatment Not on file documented as of this encounter Visit Diagnoses Not on filedocumented in this encounter
--- OUTSIDE RECORDS SUMMARY | 2024-12-22 11:43 | XMS_ITS | Encounter Summary ---
Author Organization [employer] ([place], [place], [place], [place]) Address [address] [place] [address] Care Team Providers Care Gasket Maker Name Role Phone Unavailable Primary Care Provider Unavailabl e Encounter Details Date Type Department Care Team (Late st Contact Info) Description 10/06/2018 Transcribed Document [facility] [place] [facility] [place] [address] ProviderLeyda MD [address] [place] [id number] Social History Tobacco Use Types Packs/Day Years [...] Laparoscopic Toupet fundoplication. SURGEON: Daniel Jang MD IRONWORKER APPRENTICE: Marcel OPERATION/PROCEDURE DESCRIPTION: After obtaining informed consent, [...] esophagus and the anesthesiologist then advanced a 56-Polish bougie through the mouth, through the stomach, [...]
--- OUTSIDE RECORDS SUMMARY | 2024-12-22 11:44 | XMS_ITS | Encounter Summary ---
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 2-4 times a month 10/26/2024 10:09 AM Janeth Tobias Q2: How many drinks containing alcohol do you have on a typical day when you are drinking? 1 or 2 10/26/2024 10:09 AM Janeth Tobias Q3: How often do you have six or more drinks on one occasion? Never 10/26/2024 10:09 AM Janeth Tobias * Over the past 2 weeks, how often have you been bothered by any of the following problems? Question Answer Date of Assessment Author Little interest or pleasure in doing things Not at all 10/26/2024 10:08 AM Janeth Tobias Feeling down, depressed, or hopeless Not at all 10/26/2024 10:08 AM LUIST Janeth Martin Patient Health Questionnaire -2 Score 0 10/26/2024 10:08 AM LUIST Janeth Martin documented as of this encounter Plan of Treatment Upcoming Encounters Date Type Department Care Team (Late st Contact Info) Description 12/22/2024 3:00 PM EDT Appointment [facility] [address] [place] [address] 12/25/2024 10:00 AM EDT Office Visit [facility] [place] [address] [facility], [address] [place] [phone] Sara Johnson, SHEET TAILER [address] [place] [address] 01/08/2025 4:00 PM EST Office Visit [facility] [address], [address] [place] [address] Mitul Garza MD [address] [place] [address] 02/19/2025 9:00 AM EST Ancillary Procedure [facility] [address] [place] [address] 02/19/2025 10:00 AM EST Office Visit [facility] [address], [facility] [place] [address] Mariam Urban MD [address] [place] [address] 04/26/2025 11:10 AM EST Office Visit [facility] [address], [facility] [place] [address] 05/16/2025 2:00 PM EDT Office Visit [facility] [address], [facility] [place] [address] Marli Godoy MD [address] [place] [address] documented as of this encounter [...] documented as of this encounter Care Teams Product Promoter Sales Person Relationship Specialty Start Date End Date Bill Lamar MD [address] [facility] [place] [address] PCP - General 04/13/22 documented as of this encounter
--- OUTSIDE RECORDS SUMMARY | 2024-12-22 11:44 | XMS_ITS | Encounter Summary ---
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 [address] [facility], [address] [place] [address] Sara Johnson APRN [address] [place] [phone] 01/08/2025 4:00 PM EST Office [facility] [address] [facility], [address] [place] [address] Mitul Garza MD [address] [place] [address] 02/19/2025 9:00 AM EST Ancillary Procedure [facility] Medicine Specialties [address]nd [place] [address] 02/19/2025 10:00 AM EST Office Visit [facility] Medicine Specialties [address] [place] [address] Mariam Urban MD [address] [place] [address] 04/26/2025 11:10 AM EST Office Visit [facility] Medicine Specialties [address] [place] [address] 05/16/2025 2:00 PM EDT Office Visit [facility] [address] [place] [address] Marli Godoy MD [address] [place] [address] documented as of this encounter [...] documented as of this encounter Care Teams Service Trainer Relationship Specialty Start Date End Date Bill Lamar MD [address] [place] [address] PCP - General 04/13/22 documented as of this encounter
--- OUTSIDE RECORDS SUMMARY | 2024-12-22 11:44 | XMS_ITS | Encounter Summary ---
Author Organization Healthcare Address [address] [place] [address] Care Team Providers Care Jigger Crown Pouncing Machine Operator Name Role Phone Bill Lamar MD Primary Care Provider [phone] Encounter Details Date Type Department Care Team (Late st Contact Info) Description 10/31/2024 Orders Only [facility] [place] [facility] 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 Garza to sign as [facility] requires that step. documented in this encounter Plan of Treatment Upcoming Encounters Date Type Department Care Team (Late st Contact Info) Description 12/22/2024 3:00 PM EDT Appointment [facility] [address] [place] [address] 12/25/2024 10:00 AM EDT Office Visit [facility] [address] [facility], [address] [place] [phone] Sara Johnson APRN [address] [place] [address] 01/08/2025 4:00 PM EST Office Visit [facility] [address] [facility], [address] [place] [phone] Mitul Garza MD [address] [place] [address] 02/19/2025 9:00 AM EST Ancillary Procedure [facility] Medicine Specialties [address] [place] [address] 02/19/2025 10:00 AM EST Office Visit [facility] Specialties [address] [place] [address] Mariam Urban MD [address] [place] [address] 04/26/2025 11:10 AM EST Office Visit [facility] Medicine Specialties [address] [place] [address] 05/16/2025 2:00 PM EDT Office Visit [facility] Specialties [address] [place] [address] Marli Godoy MD [address] [place] [address] documented as of this encounter [...] documented as of this encounter Care Teams Jigger Crown Pouncing Machine Operator Relationship Specialty Start Date End Date Bill Lamar MD [address] [place] [address] PCP - General 04/13/22 documented as of this encounter
--- OUTSIDE RECORDS SUMMARY | 2024-12-22 11:44 | XMS_ITS | Data Portability ---
Author Organization [facility] Jorge patten, CKS WARSAW CLOSED Address [address] [place] [address] Care Team Providers Care Second Officer Name Role Phone GONZALES AMADOR Primary Care Provider [phone] PARVEZ SANTILLAN Mechanical Inspector MISBAH SLATER Car Seat Coverer Assessment Encounter Date Assessment Date Assessment LastModified by Organization Details LastModified Time 07/18/2023 07/18/2023 Interval dysphagia followed by [facility] repeating scope with [facility] in August 2023. [email or web address] Not available 07/18/2023 16:15:50 09/01/2023 09/01/2023 Ms. Aponte is a very pleasant, 48 y.o. patient with a h/o Scleroderma who was last seen in the office on 06/09/22 for chest pain and LBBB. She was recently evaluated at [facility] for her scleroderma diagnosis. An echocardiogram was performed at that time. It documented a decline in her left ventricular ejection fraction from a baseline of 50-55% per most recent echocardiogram last year at [facility] to the left trickle ejection fraction of [...] To review: She was recently evaluated at [facility] for her scleroderma diagnosis. An echocardiogram was performed at that time. It documented a decline in her left ventricular ejection fraction from a baseline of 50-55% per most recent echocardiogram last year at [facility] to the left ventricular ejection fraction of [...] Organization Details Last Modified Time Details Appointments CT SCAN 2025 02:40P M ct_scan Not available Not available Not available RECHECK 2025 03:00P M DR AILYN AHUJA Not available Not available Not available Lab sjogren antibody panel, serum 2023 024 [email or web address] [facility], [address] [place] [address], [phone], 07/25/2023 12:17:02 glycohemo globin, total, blood 2023 024 [email or web address] [facility], [address] [place] [address], [phone], 07/25/2023 12:17:01 TSH, serum or plasma 2023 024 [email or web address] [facility], [address] [place] [address], [phone], 07/25/2023 12:17:01 BMP, serum or plasma 2023 024 [facility], [address] [place] [address], [phone], 07/25/2023 12:17:01 CBC w/ auto diff 2023 024 [email or web address] [facility], [address] [place] [address], [phone], 07/25/2023 12:17:02 Referral None recorded. Procedures None recorded. Surgeries None recorded. Imaging CT, chest, w/o contrast 2024 025 [email or web address] 8 [facility], [address] [place], [phone], 05/01/2024 09:48:02 CT, chest, w/o contrast 2023 024 [facility], [address] [place], [address], 04/20/2024 13:54:19 Medication Orders lisinopri l 2.5 mg tablet 2023 025 [facility] [id number], [address] [place] [address], [id number], 04/20/2024 15:17:26 pilocarpi ne 5 mg tablet 2023 024 [place] [id number], [address] [place], [place], [phone], 12/05/2023 15:21:15 Patient TargetsNo targets recorded. Patient Instructions Encounter Date Encounter Id Patient Instructions Last Modified By Organization Details Last Modified Time 12/05/2023 [id number] body mass index: care instructions Not available 12/05/2023 16:17:25 Reason for Referral None Reported. Results Created Date Observation Date Name Description Value Unit Range Abnormal Flag Note LastModifiedBy Organization Detail LastModifiedTime 09/06/1909/01/2023 elect merary annegr am No observ ation record ed. BARCODE Not Available 2023 15:32:46 09/16/1909/16/2023 , farida bruce, for vascu lar acces s No observ ation record ed. [email or web address] Not Available 09/18 08:13:12 11/24/1911/21/2023 MRI, cardi ac, for veloc ity flow mappi ng No observ ation record ed. [email or web address] Not Available 2023 10:28:21 12/24/19 24 12/21/2023 event monit or No observ ation record ed. MARTI Not Available 2023 09:11:41 04/20/19 25 04/20/2024 CT, chest , w/o contr ast [facility] [address] [place] [address] Patielvis t Name: CHARISSA APONTE Patielvis t : 1974 Patien t Orderi ng Provid er: CHAYA HEATHER Wilmar ROTHZA EXAM DATE: 2024 EXAM: CT CHEST W/O [...] Marvin Farrell MD on 1:49 PM pollo [facility] [address] [place] [address], [phone], 04/20/2024 13:56:26 Result Notes Documentation Provider Name and Address Organization Details Recorded Time Ct, Chest, W/o Contrast : [address] [address] Patient Name: MELINDA APONTE Patient : 1975 [...] By: Marvin Farrell MD A BRUNER MD [address] [place] [address], [phone], [facility] 04/20/2024 13:56:26 Problems No Known Problems Procedures Surgical History Date Name Laterality Status Provider Name and Address Organization Details Recorded Time 09/16/19 24 COMBINED RIGHT AND LEFT HEART CATHETERIZATION (SURG) completed Lillianzhen Mcnamara [facility] 09/19/2023 08:03:09 09/01/19 24 EKG completed MISBAH SLATER MD [address] [place] [address], [phone], [place] [facility] 09/01/2023 12:24:55 03/11/19 24 Airway Resistance completed Gisel Ayah [place] [facility] 03/11/2023 14:51:48 03/11/19 24 Diffusion Capacity completed Gisel Ayah [place] [facility] 03/11/2023 14:51:47 03/11/19 24 Lung Volumes, Plethysmography [place] Gisel Ayah [place] [facility] 03/11/2023 14:51:56 03/11/19 24 Spirometry [place] Gisel Ayah [place] [facility] 03/11/2023 14:51:45 03/11/19 24 Pulmonary Function Testing completed CHAYA REDMAN MD [facility] [place], [address], [facility] 03/11/2023 15:04:06 06/05/19 23 Stress Test - Nuclear Lexiscan completed MISBAH SLATER MD [facility] [place], [address], [facility] 06/04/2022 16:55:23 05/21/19 23 EKG completed MISBAH SLATER MD [facility] [place], [address], [facility] 05/21/2022 06:25:05 05/21/19 23 Echocardiogram completed MISBAH SLATER MD [address] [place] [address], [phone], [facility] 05/20/2022 14:45:47 12/24/19 22 Airway Resistance completed Gabriela Cervantesan [place] [facility] 12/23/2021 09:23:10 12/24/19 22 Diffusion Capacity completed Gabriela Jarocho [place] [facility] 12/23/2021 09:23:09 12/24/19 22 Lung Volumes, Plethysmography completed Gabrielaroger Cervantesan [place] [facility] 12/23/2021 09:23:15 12/24/19 22 Spirometry completed Gabriela Avendaño [place] [facility] 12/23/2021 09:23:13 05/22/19 22 Airway Resistance completed [facility] 05/21/2021 08:59:09 05/22/19 22 Diffusion Capacity completed [facility] 05/21/2021 08:59:05 05/22/19 22 Lung Volumes, Plethysmography completed [facility] 05/21/2021 08:59:06 05/22/19 22 Spirometry with Bronchodilator completed [facility] 05/21/2021 08:59:13 05/08/19 22 Echocardiogram completed YIN ECKERT MD [address] [place], [address], [facility] 05/08/2021 09:50:04 05/08/19 22 EKG completed FLORES PLASCENCIA PA-C [address] [place], [address], [facility] 05/07/2021 14:26:41 section completed [facility] 05/21/2021 08:51:52 Hysterectomy/bladde r repair completed [facility] 05/21/2021 08:51:57 cholecystectomy completed [facility] 05/21/2021 08:52:07 Jim fundoplication completed [facility] 05/21/2021 08:52:23 Breast augmentation w/implt completed [facility] 05/21/2021 08:52:35 procedure on knee completed [facility] 04/16/2022 10:10:21 endoscopy completed [facility] 04/16/2022 10:10:41 Imaging Results None recorded. Procedure Notes None recorded. Medical Equipment None Reported. Allergies Allergen ID Allergen Name Allergen Category Reaction Reaction Severity Criticality Documentation Date Start Date Code Code System Note Provider Name and Address Organization Details Recorded Time 776766 Lamictal medicatio n Not available Not available Not available 04/30/2021 2 [facility] 10:06:03 061295 lithium Not available Not available Not available Not available 04/30/2021 6448 RxNorm Maxine dyer [facility] 2 10:06:11 150955 Levaquin medicatio n Not available Not available Not available 12/05/2023 74108 2 RxNorm Linnette Kam [facility] 4 15:20:22 Medications Name Sig Start Date [...] Updated DateTime 4 154.94 cm 34.6 kg/m2 13256.4 g 98 % 98 % 86 /min 122/78 mm[Hg] Gisel Poon [facility] 4 14:46:39 Date Recorded Body height Body mass index (BMI) Body weight Oxygen saturation Oxygen saturation in Arterial blood by Pulse oximetry Heart rate Systolic And Diastolic Provider Name and Address Organization Details Last Updated DateTime 5 154.94 cm 33.1 kg/m2 42304.6 6 g 98 % 98 % 85 /min 122/68 mm[Hg] Rosita Snowden [facility] 5 15:19:39 Date Recorded Body height Body mass index (BMI) Body weight Respiratory rate Heart rate Oxygen saturation Oxygen saturation in Arterial blood by Pulse oximetry Systolic And Diastolic Provider Name and Address Organization Details Last Updated DateTime 4 154.94 cm 34 kg/m2 69387.6 3 g 16 /min 88 /min 100 % 100 % 122/80 mm[Hg] Leda Aponte [facility] 4 16:03:18 Date Recorded Body height Body mass index (BMI) Body weight Respiratory rate Oxygen saturation Oxygen saturation in Arterial blood by Pulse oximetry Heart rate Systolic And Diastolic Provider Name and Address Organization Details Last Updated DateTime 4 154.94 cm 36 kg/m2 83934.6 5 g 16 /min 100 % 100 % 94 /min 132/86 mm[Hg] Lisa Kevon [facility] 4 12:15:55 Date Recorded Body height Body mass index (BMI) Body weight Oxygen saturation Oxygen saturation in Arterial blood by Pulse oximetry Heart rate Systolic And Diastolic Provider Name and Address Organization Details Last Updated DateTime 4 154.94 cm 35 kg/m2 89501.0 3 g 92 % 92 % 90 /min 124/82 mm[Hg] Linnette Kam [facility] 4 15:30:49 Social History Question Answer Notes LastModified by ThumbAd Details LastModified Time Tobacco Smoking Status Never Smoker [facility] 04/30/2021 10:08:44 What Was The Date Of Your Most Recent Tobacco Screening? 04/13/2024 [email or web address] Information not available 04/20/2024 How Many Children Do You Have? 1 [email or web address] Information not available 05/07/2021 What Is Your Relationship Status? [email or web address] Information not available 05/07/2021 Has Tobacco Cessation Counseling Been Provided? No Information not available 04/30/2021 Have You Recently Traveled Abroad? No [email or web address] Information not available 05/07/2021 Sex: Female Functional [...] available 04/07 15:06:09 Paternal Grandfather Heart disease Not available 05/21 08:53:52 Mother Heart disease Not available 05/21 08:54:13 Maternal Aunt Family [...] N Anemia Y Ulcers N Heart Attack ([place]) N Deep Vein Thrombosis N Sinusitis Y [...] PF, 0.5 mL 05/15/2020 completed Mone Hernandez [facility] 05/21/2021 08:52:59 COVID-19, mRNA, LNP-S, PF, 100 mcg/0.5mL dose or 50 mcg/0.25mL dose 01/10/2021 [facility] 08:53:15 Past Encounters Encounter ID Performer Location Encounter Start Date Encounter Closed Date Diagnosis/Indication Diagnosis SNOMED-CT Code Diagnosis ICD10 Code Diagnosis IMO Codes Diagnosis Note [id number] PARVEZ SANTILLAN MD RHEUMATOL [facility]LLA [facility] [address] [place] [address] 04/30/2021 09:56:45 04/30/2021 12:14:58 Limited systemic sclerosis 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 Malaise and fatigue 4509 78799 R53.81 R53.83 In terms of chronic malaise and fatigue, I would suggest to be screened for obstructiv e sleep apnea. She will follow this with her primary care physician. [id number] FLORES PLASCENCIA PA-C CARDIOLOG Y [facility] [address] [place], [place] [address] [place] [address] 05/07/2021 13:51:00 05/11/2021 09:16:05 Left bundle branch block 69031150 I44.7 Chronic with reported negative cardiac work-up Limited sy stemic sclerosis 543879661 M34.9 Patient will get a baseline echo due to potential associatio n of pulmonary arterial hypertensi on with systemic scleroderm a. She has a schedule appointmen t for baseline pulmonary evaluation as well. [id number] YIN ECKERT MD [facility] [address] [place] [address] [place] [address] 05/07/2021 16:08:52 05/11/2021 07:14:16 Pulmonary hypertension 85080058 I27.20 [id number] MISBAH GOOD MD PULMONARY [address], [address] [place] [address] 05/21/2021 08:32:41 05/21/2021 10:00:38 Systemic sclerosis 50882122 M34.9 Newly diagnosed with scleroderm a. She [...] pulmonary function testing. Gastroesop hageal reflux disease 578680466 K21.00 [id number] PARVEZ SANTILLAN MD RHEUMATOL OGY [address] [place] [address] 06/18/2021 15:47:05 06/18/2021 16:59:14 Limited systemic sclerosis 680597568 M34.9 46-year-ol d female with clinical evidence [...] I will get GI consultati on from [facility]. In the meantime she will maintain the [...] years. Gastro-eso phageal reflux disease with esophagitis 610935829 K21.00 Chronic secondary to limited scleroderm a. Currently on Protonix. Discussed concerns about potential Silveira's esophagus. She has requested a consultati on from a tertiary care center. We will try to get [facility] gastroente rology to see her. [id number] MISBAH GOOD MD PULMONARY [address], [address] [place] [address] 12/23/2021 09:04:58 12/23/2021 10:36:04 Systemic sclerosis 35626748 M34.9 Newly diagnosed with scleroderm a. She [...] testing 1 year. Gastroesop hageal reflux disease 415500140 K21.00 [id number] PARVEZ SANTILLAN MD RHEUMATOL OGY [address] [place] [address] 04/16/2022 09:57:15 04/16/2022 13:10:14 Limited systemic sclerosis 772756704 M34.9 47-year-ol d female with clinical evidence [...] is seen by tanner dickens at the [facility]. She has had evaluation at the [facility] in the past. Currently on Protonix and famotidine . Still symptomati c. Suggested to consider Dexilant in place of Protonix which she will review with the gastrofred santosogy at [facility]. Also reminded to avoid all NSAIDs. [...] planned. Gastro-eso phageal reflux disease with esophagitis 506759372 K21.00 Chronic gastroesop hageal reflux disease secondary to limited scleroderm a. Currently on Protonix in combinatio n with famotidine . Has had evaluation at the [facility] gastroente rology and most recently at [facility]. So far the work-up is negative for Silveira's esophagus. However the current medication s are not helping her symptoms. We talked about usual care including keeping her head elevated to more than 30 degrees at bedtime. Also suggested to avoid greasy and spicy food. Discussed Dexilant in place of Protonix which she will follow-up with her gastroente rology at [facility].Michael shepard is taking Advil and I suggested her to avoid all NSAIDs. I wrote a prescripti on for tramadol to help with her pains. Chronic pain syndrome 37 4665699 G89.4 Chronic pain syndrome diagnosis fibromyalg ia at the [facility]. Suggested Elavil. I am a bit concerned about the use of anticholin ergic medication especially with her gastropare sis and reflux disease. Nonpharmac ologic modalities including relaxation exercises neelam chi and yoga reviewed. She can maintain tramadol for the pain management . We also discussed the role of Cymbalta. [id number] MISBAH SLATER MD [facility] [address] [place] [address] 05/20/2022 13:12:07 05/21/2022 04:47:25 Left bundle branch block 14376487 I44.7 [id number] MISBAH SLATER MD CARDIOLOG Y [facility] [address] [place] [address] 05/20/2022 13:13:10 05/20/2022 14:51:02 Obesity 735945425 E66.9 patient's BMI today was = 33.3; recommend weight loss to achieve a BMI of <=25. Left bundl e branch block 57428618 I44.7 Patient has h/o chronic LBBB.EKG today - normal sinus rhythm, rate=86, normal axis, LBBB, QTc= 433 ms. Chest pain 59864874 R07. 9 Based on history and physical exam, the patient's chest pain is of unknown etiology. Patient with family history of CAD. Echocardio gram today revealed LVEF=50-55 % and no significan t valvular abnormalit ies. Recommenda tion:Nafisa can nuclear stress testing is recommende d in the near future to evaluate this issue. Limited sy stemic sclerosis 303029218 M34.[address] Rashaad Santillan ( Rheumatolo gy) and at the [facility] for this issue. A yearly echocardio gram to assess RV size, RV systolic function, and to estimate RVSP is recommende d. [id number] MISBAH SLATER MD [facility] [address] [place] [address] 06/04/2022 12:22:45 06/07/2022 08:32:25 [id number] MISBAH SLATER MD CARDIOLOG Y [address] [place] [address] 06/09/2022 14:57:30 06/10/2022 04:14:19 Obesity 285935283 E66.9 patient's BMI today was = 33.7; recommend weight loss for beneficial effects on health. Chest pain 81013218 R07. 9 Based on history and physical [...] this time. Left bundl e branch block 00418150 I44.7 Patient has h/o chronic LBBB. Palpitations 91026992 R0 0.2 One recent episode of palpitatio [...] likely be ordered. Limited sy stemic sclerosis 701675594 M34.[address] Rashaad Santillan ( Rheumatolo gy) and at the [facility] for this issue. Recommenda tion:An Echocardio gram q 1-2 years to assess RV size, RV systolic function, and to estimate RVSP is recommenddevyn eduardo [id number] PARVEZ SANTILLAN MD RHEUMATOL OGY [address] [place] [address] 12/09/2022 15:54:25 12/11/2022 04:24:11 Limited systemic sclerosis 180603303 M34.9 47-year-ol d female with clinical evidence [...] motility disorder. Has had evaluation at the [facility] and later at [facility] which confirmed ineffectiv e esophageal motility. Now scheduled to follow-up with tanner dickens at [facility] . In the meantime she will [...] years. Gastro-eso phageal reflux disease with esophagitis 084045063 K21.00 Chronic gastroesop hageal reflux disease secondary to limited scleroderm a. Currently on Protonix in combinatio n with famotidine . Has had evaluation at the [facility] gastroente rology and most recently at [facility]. Negative work-up for Silveira's esophagus. 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 She is now scheduled to see motility specialist in [facility]. We talked about usual care including keeping her head elevated to more than 30 degrees at bedtime. Also suggested to avoid greasy and spicy food. She will maintain Protonix twice a day and she will follow-up with her gastroente rology at [facility]. I suggested her to avoid all NSAIDs. She can use tylenol extra strength. Chronic pain syndrome 37 3557017 G89.4 Chronic pain syndrome diagnosis fibromyalg ia at the [facility]. Suggested Elavil. I am a bit concerned [...] be adjusted based on her tolerance benefit. [id number] CHAYA SCHMITZ MD PULMONARY [address], [address] [place] [address] 03/11/2023 14:40:15 03/11/2023 16:25:00 Localized scleroderma 260613785 L94.0 Scleroderm a without any pulmonary manifestat [...] a repeat CT scan of the chest [id number] PARVEZ SANTILLAN MD RHEUMATOL OGY [address] [place] [address] 07/18/2023 15:55:52 07/20/2023 04:06:21 Limited systemic sclerosis 411064230 M34.9 48-year-ol d female with clinical evidence [...] disorder, gastropare sis. Currently being evaluated at [facility] tertiary care center. She has had evaluation at [facility] and also at [facility] . She was not very satisfied with [facility] workup or evaluation s. For now, she will maintain the hydroxychl oroquine at 200 mg once a day and continue with the current dose of Dexilant 60 mg daily. She will maintain amitriptyl ine at 50 mg p.o. nightly for chronic pain/fibro myalgia syndrome. During this upcoming [facility] evaluation she is scheduled for rheumatolo gy as well as cardiology evaluation . Recent pulmonary evaluation at [facility] reviewed, DLCO as of 03/11/2023 within normal limits. Follow up in 6 months. Gastro-eso phageal reflux disease with esophagitis 991143472 K21.00 Chronic gastroesop hageal reflux disease secondary to limited scleroderm a. She is now on Dexilant 60 mg once a day. She has failed the Protonix. Has had evaluation s at the [facility], [facility] and [facility] . Further history is positive for gastropare sis. Negative work-up for Silveira's esophagus. 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 Scheduled for repeat upper scope with [facility] in August 2023. I suggested her to avoid all NSAIDs. She can use tylenol extra strength. Chronic pain syndrome 37 6016647 G89.4 Chronic pain syndrome diagnosis fibromyalg ia at the [facility]. She is now on amitriptyl ine 50 mg at bedtime which seems to be helping her symptoms quite well. Nonpharmac ologic modalities including relaxation exercises neelam chi and yoga reviewed. Try to reduce stress. We will continue to watch her clinically . Certainly the dose of the amitriptyl ine can be adjusted based on her tolerance benefit. Xerostomia 45199654 R68. 2 She has xerostomia likely multifacto rial further contribute d by amitriptyl ine suggested symptomati c management with pilocarpin e. I also obtained the Sjogren's profile. She will initiate pilocarpin e 5 mg every 8 hours Abnormal weight gain 161 805668 R63.5 He has gained some weight in the last few months.Sug gested to obtain routine metabolic panel to look at the reversible causes. She will maintain her strict dietary program. [id number] MISBAH SLATER MD CARDIOLOG Y [address] [place] [address] 09/01/2023 12:05:38 09/01/2023 13:12:53 Left bundle branch block 72699412 I44.7 Patient has h/o chronic LBBB. EKG (09/01/23) - normal sinus rhythm, rate= 94, normal axis, IVCD-likel y left bundle branch block, QTc= 445 ms, no significan t ST abnormalit ies. Cardiomyopathy 09672544 I42.9 Recent echocardio gram at [facility] documented LVEF=35-40 % with several RWMA [...] unchanged. She follows with Dr. Carcamo at [facility] in clinic pulmonary and is neck scheduled [...] preprocedu re labs: CMP, CBC Chest pain 15426260 R07. 9 Since last visit, patient reports [...] catheteriz ation2) preprocedu re labs: CMP, CBC [id number] MISBAH SLATER MD CARDIOLOG Y [facility] [address] [address] 12/05/2023 15:03:04 12/06/2023 10:59:36 Obesity 443390151 E66.9 patient's BMI today was = 35.0; recommend weight loss for beneficial effects on health. Left bundl e branch block 73222256 I44.7 Patient has h/o chronic LBBB. EKG (09/01/23) - normal sinus rhythm, rate= 94, normal axis, IVCD-likel y left bundle branch block, QTc= 445 ms, no significan t ST abnormalit ies. Cardiomyopathy [id number] I42.9 Recent echocardio gram at [facility] documented LVEF=35-40 % with several RWMA [...] ies, no scarring or fibrosis. Chest pain [id number] R07. 9 Since last visit, patient reports [...] signficant ly improved on Colchicine . Palpitations [id number] R0 0.2 She reports a recent increase in palpitatio ns, dizziness/ lightheade dness, and dyspnea. RECOMMENDA TION: 5 day Holter monitoring -Consider low dose beta reyes after monitoring [id number] CHAYA CARCAMO-ELISEO SCHMITZ MD PULMONARY [address] [facility], [address] [place] [address] 04/20/2024 15:05:16 04/20/2024 16:27:24 Localized scleroderma [id number] L94.0 Scleroderm a without any parenchyma l [...] PLAN Melinda Aponte 04/19/2024 1 [place] [id number] Melinda Aponte [id number] Melinda Aponte 10/14/2024 1 [place] [id number] Melinda Aponte [id number] Melinda Aponte 03/11/2023 1 [place] [id number] Devonte Aponte [id number] 70 Melinda Aponte Notes Date Note Type Note Provider Name and Address Organization Details Recorded Time 03/11/2023 text/html ROS as noted in the HPI Patient comes in for follow-up of scleroderma. [...] tests are entirely unremarkable CHAYA BRUNER MD [address] [place] [address], [phone], [facility] 03/11/2023 15:12:45 07/18/2023 text/html ROS as noted in the HPI 48-year-old seen today as a follow-up for limited scleroderma. 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 Significant chronic gastroesophageal reflux disease and gastroparesis. Has had evaluation with [facility] gastroenterology and later saw gastroenterology at [facility]. She also had evaluation with rheumatology at [facility].She is on Dexilant 60 mg daily off the Protonix. She is also on amitriptyline 50 mg at bedtime which seems to have helped the fibromyalgia pains. Had a motility study at [facility] dated 07/30/2022 which confirmed ineffective esophageal motility consistent with scleroderma. She does not have any history of interstitial lung disease or pulmonary arterial hypertension. She is on maintenance hydroxychloroquine 200 mg once a day. Interval dysphagia followed by [facility], was not very satisfied with [facility] and is not scheduled to follow-up with [facility] in August 2023. PARVEZ SANTILLAN MD [facility] [place], [address], [facility] 07/19/2023 08:08:48 09/01/2023 text/html ROS as noted in the HPI Ms. Aponte is a very pleasant, 48 y.o. patient with a h/o Scleroderma who was last seen in the office on 06/09/22 for chest pain and LBBB. She was recently evaluated at [facility] for her scleroderma diagnosis. An echocardiogram was performed at that time. It documented a decline in her left ventricular ejection fraction from a baseline of 50-55% per most recent echocardiogram last year at [facility] to the left trickle ejection fraction of [...] a follow-up visit today. MISBAH SLATER MD [facility] [place], [address], [facility] 12/02/2023 09:28:38 12/05/2023 text/html ROS as noted in the HPI Ms. Aponte is a very pleasant, 48 y.o. patient with a h/o Scleroderma who was last seen in the office on 09/01/23 for chest pain and LBBB. To review:She was recently evaluated at [facility] for her scleroderma diagnosis. An echocardiogram was performed at that time. It documented a decline in her left ventricular ejection fraction from a baseline of 50-55% per most recent echocardiogram last year at [facility] to the left ventricular ejection fraction of 35% with some regional wall motion abnormalities.Cardiac MRI (11/11/23): LVEF=40.1%, no fibrosis or scarring. Patient reports occasional palpitations and dizziness. Chest pain & abdominal pain prompted an ER visit at [facility]. Patient was started on colchicine and this has significantly improved the chest pain. Patient returns to the clinic today for a scheduled follow-up visit. MISBAH SLATER MD [address] [place] [address], [phone], [facility] 12/05/2023 18:45:00 04/20/2024 text/html ROS as noted in the HPI Patient comes in for follow-up of scleroderma. [...] Of note, her GI MD and second digital recruiter is at [facility] CHAYA BRUNER MD [address] [place] [address], [phone], [facility] 04/20/2024 15:43:31 OBGyn Episode No OBEpisode recorded.
--- OUTSIDE RECORDS SUMMARY | 2024-12-22 11:44 | XMS_ITS | Encounter Summary ---
Author Organization Healthcare Address [address] [place] [address] Care Team Providers Care Track Coach Name Role Phone Bill Lamar MD Primary Care Provider [phone] Encounter Details Date Type Department Care Team (Late st Contact Info) Description 11/29/2024 Telephone [facility] [address] [facility] [address] [place] [address] Aisha Dangelo, TRAIN EXAMINER, [address] [phone] Social History Tobacco Use Types Packs/Day Years [...] drink first t cyndie in the morning (EYE-TUBE DRAWER) to steady your nerves or to get [...] encounter Miscellaneous Notes * Telephone Encounter - Aisha Dangelo APRN, DNP - 11/29/2024 12:58 PM EDT [facility] Pre-Infusion Screening Melinda Aponte has an appointment for venofer infusion on 11/30/24. CAROLE called patient to completepre-infusion screening questions. Unable to speak with patient. Left voicemail to remind patient of appt date, time, and location. Duration of phone call: 1 minutes Aisha Dangelo APRN, JT [facility] documented in this encounter Plan of Treatment Upcoming Encounters Date Type Department Care Team ([facility] st Contact Info) Description 12/22/2024 3:00 PM EDT Appointment [facility] Infusion [address] [place] [address] 12/25/2024 10:00 AM EDT Office Visit [facility] [place] [address] [facility], [address] [place] [address] Sara Johnson APRN [address] [place] [address] 01/08/2025 4:00 PM EST Office Visit [facility] [address] [facility], [address] [place] [address] Mitul Garza MD [address] [place] [address] 02/19/2025 9:00 AM EST Ancillary Procedure [facility] [address], [address]nd [place] [address] 02/19/2025 10:00 AM EST Office Visit [facility] [address], [address] [place] [address] Mariam Urban MD [address] [place] [address] 04/26/2025 11:10 AM EST Office Visit [facility] [address], [address] [place] [address] 05/16/2025 2:00 PM EDT Office Visit [facility] [address], [address]nd [place] [address] Marli Godoy MD [address] [place] [address] documented as of this encounter [...] documented as of this encounter Care Teams Track Coach Relationship Specialty Start Date End Date Bill Lamar MD [address] [place] [address] PCP - General 04/13/22 documented as of this encounter
--- OUTSIDE RECORDS SUMMARY | 2024-12-22 11:44 | XMS_ITS | Encounter Summary ---
Author Organization Healthcare Address [address] [place] [address] Care Team Providers Care Np Name Role Phone Bill Lamar MD Primary Care Provider [phone] Encounter Details Date Type Department Care Team (Latest Contact Info) Description 11/30/2024 Travel Social History Tobacco Use Types Packs/Day [...] drink first t cyndie in the morning (EYE-DIVIDING MACHINE OPERATOR HELPER) to steady your nerves or to get [...] Upcoming Encounters Date Type Department Care Team ([facility] st Contact Info) Description 12/22/2024 3:00 PM EDT Appointment [facility] Infusion 800 [place] [address] 12/25/2024 10:00 AM EDT Office Visit [facility] [address] [facility], [address] [place] [address] Sara Johnson APRN [address] [place] [address] 01/08/2025 4:00 PM EST Office Visit [facility] [address] [facility], [address] [place] [address] Mitul Garza MD [address] [place] [address] 02/19/2025 9:00 AM EST Ancillary Procedure [facility] [address], 2nd [place] [address] 02/19/2025 10:00 AM EST Office Visit [facility] [address], 2[address] [place] [address] Mariam Urban MD [address] [place] [address] 04/26/2025 11:10 AM EST Office Visit [facility] [address], 2[address] [place] [address] 05/16/2025 2:00 PM EDT Office Visit [facility] [address], [address] [place] [address] Marli Godoy MD [address] [place] [address] documented as of this encounter [...] documented as of this encounter Care Teams Np Relationship Specialty Start Date End Date Bill Lamar MD [address] [place] [address] PCP - General 04/13/22 documented as of this encounter
--- OUTSIDE RECORDS SUMMARY | 2024-12-22 11:44 | XMS_ITS | Encounter Summary ---
Author Organization Healthcare Address [address] [place] [address] Care Team Providers Care Dyeing Machine Feeder Name Role Phone Bill Lamar MD Primary Care Provider [phone] Encounter Details Date Type Department Care Team (Late Contact Info) Description 07/30/2022 Orders Only External Location [address] [place] [address] Provider, External Social History Tobacco Use Types Packs/Day Years Used Date Smoking Tobacco: Never Smokeless Tobacco: Never Alcohol Use Standard Drinks/Week Comments Yes 2 (1 standard drink = 0.6 oz pur e alcohol) PHQ-2 Answer Date Recorded Patient Health Questionnaire-2 Score 0 06/15/2022 PHQ-2A Answer Date Recorded Patient Health Questionnaire-2 Score 0 06/15/2022 Comments No Sex and Gender Information Value Date Recorded Sex Assigned at Not on file Legal Sex Female 6:18 PM EDT Gender Identity Not on file Sexual Orientation Not on file documented as of this encounter Plan of Treatment Upcoming Encounters Date Type Department Care Team (Late Contact Info) Description 12/22/2024 3:00 PM EDT Appointment [facility] [address] [place] [address] 12/25/2024 10:00 AM EDT Office Visit [facility] [place] [address] [facility], [address] [place] [address] Sara Johnson, RECRUITING SCHEDULER [address] [place] [address] 01/08/2025 4:00 PM EST Office Visit [facility] [place] [address], [address] [place] [address] Mitul Garza MD [address] [place] [address] 02/19/2025 9:00 AM EST Ancillary Procedure [facility] [address], [address] [place] [address] 02/19/2025 10:00 AM EST Office Visit [facility] [address], [address] [place] [address] Mariam Urban MD [address] [place] [address] 04/26/2025 11:10 AM EST Office Visit [facility] [address], [address] [place] [address] 05/16/2025 2:00 PM EDT Office Visit [facility] [address], [address] [place] [address] Marli Godoy MD [address] [place] [address] documented as of this encounter Procedures Procedure Name Priority Date/Time Associated Diagnosis Comments MR MSK OUTSIDE IMAGES 07/30/2022 3:52 PM EDT documented in this encounter Results * MR MSK OUTSIDE IMAGES (07/30/2022 3:52 PM EDT) Anatomical Region Laterality Modality Magnetic Resonan ce 07/30/2022 3:52 PM EDT us External Provider IMG MRI PROCEDURES Final Resul t documented in this encounter Visit Diagnoses Not on filedocumented in this encounter Additional Health Concerns Assessment Noted Time A fall risk assessment has been complete d for the patient 06/15/2022 3:06 PM EDT A Body Mass Index follow-up plan has been documented for the patient 06/15/2022 4:07 PM EDT documented as of this encounter Care Teams Dyeing Machine Feeder Relationship Specialty Start Date End Date Bill Lamar MD [address] [place] [address] PCP - General 04/13/22 documented as of this encounter
--- OUTSIDE RECORDS SUMMARY | 2024-12-22 11:44 | XMS_ITS | Encounter Summary ---
Author Organization Healthcare Address [address] [place] [address] Care Team Providers Care Elevator Troubleshooter Name Role Phone Bill Lamar MD Primary Care Provider [phone] Reason for Visit * Reason Onset Date Comments [facility] requesting cardiac clearance 10/25/2024 Encounter Details Date Type Department Care Team ([facility] st Contact Info) Description 10/25/2024 Telephone [facility] [place] [address] [facility], [address] [place] [address] Mitul Garza MD [address] [place] [address] [facility] requesting cardiac clearance Social History Tobacco Use Types Packs/Day Years [...] drink first t cyndie in the morning (EYE-SOLDERING MACHINE TENDER) to steady your nerves or to get [...] of Assessment Author 2 10/26/2024 10:09 AM Janeth Tobias * Question Answer Date of Assessment Author [...] hopeless Not at all 10/26/2024 10:08 AM Janeth Tobias Patient Health Questionnaire -2 Score 0 10/26/2024 10:08 AM Janeth Tobias documented as of this encounter Miscellaneous Notes * Telephone Encounter - Brittaney Morales RN - 10/26/2024 10:12 AM EDT Called provider and informed pt was will be under MAC anesthesia for a short period or time for excision of nodule and no need to hold meds. Will provide them with letter of clearance. * Telephone Encounter - Kimberly Miner - 10/25/2024 4:46 PM EDT Patient Phone Message Reason for Call: Juli, from [facility], is requesting cardiac clearance. Best contact number and optimal time of day to reach caller: [phone] Note: Please do not reply to this message. Follow-up communication and further actions as a result of this message need to be communicated with the patient directly, if the patient is not active onMyChart. If the patient is active on MyChart, they will receive notification of the communication/outcome via MyChart. documented in this encounter Plan of Treatment Upcoming Encounters Date Type Department Care Team (Late st Contact Info) Description 12/22/2024 3:00 PM EDT Appointment [facility] 800 [place] [address] 12/25/2024 10:00 AM EDT Office Visit [facility] [place] [address] [facility], [address] [place] [address] Sara Johnson APRN [address] [place] [address] 01/08/2025 4:00 PM EST Office Visit [facility] [address] [facility], [address] [place] [address] Mitul Garza MD [address] [place] [address] 02/19/2025 9:00 AM EST Ancillary Procedure [facility] [address], [address] [place] [address] 02/19/2025 10:00 AM EST Office Visit [facility] [address], [address] [place] [address] Mariam Urban MD [address] [place] [address] 04/26/2025 11:10 AM EST Office Visit [facility] [address], [facility] [place] [address] 05/16/2025 2:00 PM EDT Office Visit [facility] [address], [address] [place] [address] Marli Godoy MD [address] [facility] [address] [place] [address] documented as of this encounter [...] documented as of this encounter Care Teams Elevator Troubleshooter Relationship Specialty Start Date End Date Bill Lamar MD [address] [place] [address] PCP - General 04/13/22 documented as of this encounter
--- OUTSIDE RECORDS SUMMARY | 2024-12-22 11:44 | XMS_ITS | Encounter Summary ---
Author Organization Healthcare Address [address] [place] [address] Care Team Providers Care Slab Puller Name Role Phone Bill Lamar MD Primary Care Provider [phone] Encounter Details Date Type Department Care Team (Late Contact Info) Description 08/27/2024 Orders Only External Location [address] [place] [address] Provider, External Social History Tobacco Use Types [...] PM EDT Appointment [facility] [address] [place] [address] 12/25/2024 10:00 AM EDT Office Visit [facility] [place] [address] [facility], [address] [place] [address] Sara Johnson, ELECTRONIC DATA INTERCHANGE SPECIALIST [address] [place] [address] 01/08/2025 4:00 PM EST Office Visit [facility] [place] [address], [address] [place] [address] Mitul Garza MD [address] [place] [address] 02/19/2025 9:00 AM EST Ancillary Procedure [facility] [address], [address] [place] [address] 02/19/2025 10:00 AM EST Office Visit [facility] [address], 2[address] [place] [address] Mariam Urban MD [address] [place] [address] 04/26/2025 11:10 AM EST [facility] Visit [facility] [address], [address] [place] [address] 05/16/2025 2:00 PM EDT Office Visit [facility] [address], [address] [place] [address] Marli Godoy MD [address] [place] [address] documented as of this encounter Goals Goal Patient Goal Type Associated Problems Recent Progress Patient-Stated? Author Patient will verbalize understanding of orthotic wear , care and precautions. Occupational Therapy No Pat Bueno documented as of this encounter Procedures Procedure Name Priority Date/Time Associated Diagnosis Comments US OUTSIDE IMAGES 08/27/2024 11:05 AM EDT documented in this encounter Results * US OUTSIDE IMAGES (08/27/2024 11:05 AM EDT) Anatomical Region Laterality Modality Ultrasound 08/27/2024 11:0 5 AM EDT us External Provider IMG US PROCEDURES Final Result documented in this encounter Visit Diagnoses Not on filedocumented in this encounter Additional Health Concerns Assessment Noted Time A fall risk assessment has been complete d for the patient 06/15/2022 3:06 PM EDT A Body Mass Index follow-up plan has been documented for the patient 11/30/2023 8:42 AM EDT documented as of this encounter Care Teams Slab Puller Relationship Specialty Start Date End Date Bill Lamar MD [address] [facility] [place] [address] PCP - General 04/13/22 documented as of this encounter
--- OUTSIDE RECORDS SUMMARY | 2024-12-22 11:44 | XMS_ITS | Encounter Summary ---
Author Organization Healthcare Address [address] [place] [address] Care Team Providers Care Interior Specialist Name Role Phone Bill Lamar MD Primary Care Provider [phone] Encounter Details Date Type Department Care Team (Latest Contact Info) Description 12/14/2024 Travel Social History Tobacco Use Types Packs/Day [...] drink first t cyndie in the morning (EYE-PRECIPITATE WASHER) to steady your nerves or to get [...] Upcoming Encounters Date Type Department Care Team ([facility] st Contact Info) Description 12/22/2024 3:00 PM EDT Appointment [facility] [address] [place] [address] 12/25/2024 10:00 AM EDT Office Visit [facility] [address] [facility], [address] [place] [address] Sara Johnson APRN [address] [place] [address] 01/08/2025 4:00 PM EST Office Visit [facility] [address] [facility], [address] [place] [address] Mitul Garza MD [address] [place] [address] 02/19/2025 9:00 AM EST Ancillary Procedure [facility] [address], [address]nd [place] [address] 02/19/2025 10:00 AM EST Office Visit [facility] [address], 2[address] [place] [address] Mariam Urban MD [address] [place] [address] 04/26/2025 11:10 AM EST Office Visit [facility] [address], 2[address] [place] [address] 05/16/2025 2:00 PM EDT Office Visit [facility] [address], [address] [place] [address] Marli Godoy MD [address] [place] [address] documented as of this encounter [...] documented as of this encounter Care Teams Interior Specialist Relationship Specialty Start Date End Date Bill Lamar MD [address] [place] [address] PCP - General 04/13/22 documented as of this encounter
--- OUTSIDE RECORDS SUMMARY | 2024-12-22 11:44 | XMS_ITS | Encounter Summary ---
Author Organization Healthcare Address [address] [place] [address] Care Team Providers Care Learning Support Assistant Name Role Phone Bill Lamar MD Primary Care Provider [phone] Encounter Details Date Type Department Care Team (Latest Contact Info) Description 12/15/2024 Travel Social History Tobacco Use Types Packs/Day [...] first t cyndie in the morning (EYE-SENIOR TECHNICAL RECRUITER) to steady your nerves or to get [...] Upcoming Encounters Date Type Department Care Team ([facility] st Contact Info) Description 12/22/2024 3:00 PM EDT Appointment [facility] Infusion [address] [place] [address] 12/25/2024 10:00 AM EDT Office Visit [facility] [address] [facility], [address] [place] [address] Sara Johnson APRN [address] [place] [address] 01/08/2025 4:00 PM EST Office Visit [facility] [address] [facility], [address] [place] [address] Mitul Garza MD [address] [place] [address] 02/19/2025 9:00 AM EST Ancillary Procedure [facility] [address], [address]nd [place] [address] 02/19/2025 10:00 AM EST Office Visit [facility] [address], [address] [place] [address] Mariam Urban MD [address] [place] [address] 04/26/2025 11:10 AM EST Office Visit [facility] [address], [address] [place] [address] 05/16/2025 2:00 PM EDT Office Visit [facility] [address], [address] [place] [address] Marli Godoy MD [address] [place] [address] documented as of this encounter [...] documented as of this encounter Care Teams Learning Support Assistant Relationship Specialty Start Date End Date Bill Lamar MD [address] [place] [address] PCP - General 04/13/22 documented as of this encounter
--- OUTSIDE RECORDS SUMMARY | 2024-12-22 11:44 | XMS_ITS | Encounter Summary ---
Author Organization Healthcare Address [address] [place] [address] Care Team Providers Care Fire Prevention Captain Name Role Phone Bill Lamar MD Primary Care Provider [phone] Encounter Details Date Type Department Care Team (Late Contact Info) Description 01/12/2024 Orders Only External Location [address] [place] [id number] Provider, External Social History Tobacco Use Types [...] PM EDT Appointment [facility] [address] [place] [address] 12/25/2024 10:00 AM EDT Office Visit [facility] [address], [address] [place] [id number] Sara Johnson, FLOOR PERSON [address] [place] [address] 01/08/2025 4:00 PM EST Office Visit [facility] [address], [address] [place] [phone] Mitul Garza MD [address] [place] [address] 02/19/2025 9:00 AM EST Ancillary Procedure [facility] [address] [place] [address] 02/19/2025 10:00 AM EST Office Visit [facility] [address], [address] [place] [address] Mariam Urban MD [address] [place] [address] 04/26/2025 11:10 AM EST Office Visit [facility] [address] [place] [address] 05/16/2025 2:00 PM EDT Office Visit [facility] [address] [place] [address] Marli Godoy MD [address] [place] [address] documented as of this encounter Goals Goal Patient Goal Type Associated Problems Recent Progress Patient-Stated? Author Patient will verbalize understanding of orthotic wear , care and precautions. Occupational Therapy No Pat Bueno documented as of this encounter Procedures Procedure Name Priority Date/Time Associated Diagnosis Comments PET OUTSIDE IMAGES 01/12/2024 2:12 PM EST documented in this encounter Results * PET OUTSIDE IMAGES (01/12/2024 2:12 PM EST) Anatomical Region Laterality Modality Nuclear Medicine 01/12/2024 2:12 PM EST us External Provider IMG NM PROCEDURES Final Result documented in this encounter Visit Diagnoses Not on filedocumented in this encounter Additional Health Concerns Assessment Noted Time A fall risk assessment has been complete d for the patient 06/15/2022 3:06 PM EDT A Body Mass Index follow-up plan has been documented for the patient 11/30/2023 8:42 AM EDT documented as of this encounter Care Teams Fire Prevention Captain Relationship Specialty Start Date End Date Bill Lamar MD [address] [facility] [place] [address] PCP - General 04/13/22 documented as of this encounter
--- OUTSIDE RECORDS SUMMARY | 2024-12-22 11:44 | XMS_ITS | Encounter Summary ---
Author Organization Healthcare Address [address] [place] [address] Care Team Providers Care Multimedia Coordinator Name Role Phone Bill Lamar MD Primary Care Provider [phone] Encounter Details Date Type Department Care Team (Late st Contact Info) Description 11/28/2024 Orders Only [facility] [address] [place] [address] Brittaney Morales RN - Outpatient Center Social [...] drink first t cyndie in the morning ([employer]) to steady your nerves or to get [...] Progress Notes - Brittaney Morales, RN - 11/28/2024 2:16 PM EDT Pt had issues with dysphagia and Jardiance. Will try Farxiga. documented in this encounter Plan of Treatment Upcoming Encounters Date Type Department Care Team (Late st Contact Info) Description 12/22/2024 3:00 PM EDT Appointment [facility] [address] [place] [address] 12/25/2024 10:00 AM EDT Office Visit [facility] [place] [address] [facility], [address] [place] [phone] Sara Johnson APRN [address] [place] [address] 01/08/2025 4:00 PM EST Office Visit [facility] [address], [address] [place] [phone] Mitul Garza MD [address] [place] [address] 02/19/2025 9:00 AM EST Ancillary Procedure [facility] [address] [place] [address] 02/19/2025 10:00 AM EST Office Visit [facility] [address] [place] [address] Mariam Urban MD [address] [place] [address] 04/26/2025 11:10 AM EST Office Visit [facility] [address] [place] [address] 05/16/2025 2:00 PM EDT Office Visit [facility] [address] [place] [address] Marli Godoy MD [address] [place] [address] documented as of this encounter [...] documented as of this encounter Care Teams Multimedia Coordinator Relationship Specialty Start Date End Date Bill Lamar MD [address] [place] [address] PCP - General 04/13/22 documented as of this encounter
--- OUTSIDE RECORDS SUMMARY | 2024-12-22 11:44 | XMS_ITS | Clinical Summary ---
Author Organization [facility] Address [address] [place] [address] Care Team Providers Care Life Support Technician Name Role Phone Bill Lamar MD Primary Care Provider [phone] Allergies Active Allergy Reactions Criticality Noted Date Comments Lamotrigine Hives,Palpitations,I tchi ng,Other - please document in the comment field High 11/12/2013 Other Reaction(s): Not available Levofloxacin Nausea,Other - pleas e document in the comment field,Palpitations,Vomit ing Low 11/28/2023 [place] Other - please docum ent in the comment field Low 10/28/2021 Swollen neck Spironolactone Other - please docum ent in the comment field High 08/03/2024 Restless legs Medications estradiol (Vivelle-DOT) 0.025 MG/24HR estradiol 2MG DAILY Active famotidine (Pepcid) 40 MG tablet famotidine 40 mg Active Melatonin 12 MG tablet Take 24 mg by mouth. Active nortriptyline (Pamelor) 50 MG capsule Take 1 capsule (50 mg) by mouth 1 (one) time each day. 08/20/19 23 Active hydroxychloro quine (Plaquenil) 200 MG tablet Active colchicine (Colcrys) 0.6 MG tablet Active ondansetron (Zofran) 4 MG tablet Active promethazine (Phenergan) 25 MG tablet Take 1 tablet (25 mg) by mouth every 8 (eight) hours if needed. 09/26/19 24 Active Motegrity 2 MG tablet Take 1 tablet (2 mg) by mouth 1 (one) time each day. 11/09/19 24 Active Voquezna 20 MG tablet Take 1 tablet by mouth 1 time each day. 08/23/19 25 Active acetaminophen (Tylenol) 500 MG tablet Take 2 tablets by mouth every 6 hours as needed. Active LORazepam (Ativan) 1 MG tablet Take 1 tablet by mouth daily. Active polyethylene glycol (Miralax) 17 g packet Take 17 g by mouth daily. Active hyoscyamine (Levsin) 0.125 MG SL tablet 08/02/19 25 Active carvedilol (Coreg) 3.125 MG tablet Take 1 tablet by mouth 2 times a day. Active glucosamine-c hondroitin 500-400 MG tablet Take 1 tablet by mouth 3 times a day. Active sacubitril-va lsartan (Entresto) 24-26 MG tablet Take 1 tablet by mouth 2 times a day. 60 tablet 5 10/17/19 25 Active eplerenone (Inspra) 25 MG tablet Take 1 tablet by mouth daily. 30 tablet 5 10/17/19 25 Active azelastine (Astelin) 0.1 % nasal spray ADMINISTER 2 SPRAYS INTO EACH NOSTRIL EVERY 12 HOURS 06/07/19 25 Active clobetasol (Temovate) 0.05 % cream APPLY TOPICALLY TO THE AFFECTED AREA AT BEDTIME EVERY NIGHT 07/12/19 25 Active colestipol (Colestid) 1 g tablet Take 1 tablet by mouth twice a day. 08/22/19 25 Active fluticasone (Flonase) 50 MCG/ACT nasal spray shake liquid and use 2 sprays in each nostril daily 06/07/19 25 Active estradiol (Estrace) 2 MG tablet 09/05/19 25 Active estradiol (Vagifem) 10 MCG tablet vaginal tablet Active nitroglycerin (Sohail-Bid) 2 % ointmentIndic ations:Raynau d's disease without gangrene,Limi marah systemic sclerosis (CMS/HCC) Place 0.5 inches on the skin 2 times a day as needed (Raynauds). 30 g 5 10/27/19 25 Active dapagliflozin (Farxiga) 10 MG tablet Take 1 tablet by mouth daily. 30 tablet 5 11/29/19 25 Active Magnesium Oxide -Mg Supplement 500 MG capsule Take 500 mg by mouth 2 times a day as needed (constipation) . 60 capsule 5 10/ 026 Active hydrocortison e (Anusol-HC) 2.5 % rectal cream Apply small amount to hemorrhoids up to 3 times daily after wiping and using witch jemima for 7 days when hemorrhoids inflamed. 28 g 5 12/19/19 25 Active nutritional drink (Boost Plus) liquid liquid Take 237 mL by mouth 3 times a day. 43900 mL 11 12/19/19 Active Magnesium 100 MG capsule magnesium 500MG DAILY 025 Discontinued empagliflozin (Jardiance) 10 MG Take 1 tablet by mouth 1 time each day. 02/06/20 025 Discontinued(Al ternate therapy) nutritional drink (Boost Plus) liquid liquid Take 237 mL by mouth 3 times a day. 64773 mL 12/19/19 025 Discontinued Active Problems Problem Noted Date Diagnosed Date Iron deficiency anemia 10/04/2024 Acute on chronic systolic heart failure 10/05/19 Dysphagia, pharyngoesophageal phase 12/22/2023 Complex tear of medial menis cus of right knee as current injury 01/19/2022 Encounters Date Type Department Care Team Description 12/18/2024 2:30 PM EDT Office Visit [facility] Medicine Specialties [address] [place] [address] Elena Phillips APRN Constipation, unspecified constipation type (Primary Dx) 12/18/2024 Travel 12/15/2024 3:00 PM EDT - 12/15/2024 11:59 PM EDT Hospital Encounter [facility] [address] [place] [address] Iron deficiency anemia, unspecified iron deficiency anemia type (Primary Dx); Acute on chronic systolic heart failure Discharge Disposition: Home or Self Care 12/15/2024 Travel 12/14/2024 Travel 12/08/2024 2:25 PM EDT - 12/08/2024 11:59 PM EDT Hospital Encounter [facility] [address] [place] [address] Iron deficiency anemia, unspecified iron deficiency anemia type (Primary Dx); Acute on chronic systolic heart failure Discharge Disposition: Home or Self Care 12/08/2024 Travel 11/30/2024 3:00 PM EDT - 11/30/2024 11:59 PM EDT Hospital Encounter [facility] [address] [place] [address] Iron deficiency anemia, unspecified iron deficiency anemia type (Primary Dx); Acute on chronic systolic heart failure (CMS/HCC) Discharge Disposition: Home or Self Care 11/30/2024 Travel 11/29/2024 Telephone [facility] [address] [place] [address] Aisha Dangelo, BRAND MARKETING SPECIALIST, DNP 11/28/2024 Orders Only [facility] [address] [place] [address] Brittaney Morales, RN 11/27/2024 Travel 11/13/2024 Orders Only [facility] [address] [facility] [place] [address] Brittaney Morales, pot runner on chronic systolic heart failure (CMS/HCC) (Primary Dx); Iron deficiency anemia, unspecified iron deficiency anemia type 11/13/2024 Orders Only [facility] [address], [address] [place] [address] Mitul Garza MD 10/31/2024 Orders Only [facility] [address] [place] [address] Brittaney Morales, RN 10/31/2024 Telephone [facility] [address] [facility] [place] [address] Brittaney Morales, RN 10/26/2024 10:10 AM EDT Consult [facility] Medicine [facility]ties [address] [place] [address] Sony Buck, MBZA Limited systemic sclerosis (CMS/HCC) (Primary Dx); Dysphagia, pharyngoesophageal phase; Raynaud's disease without gangrene 10/26/2024 Travel 10/25/2024 Telephone [facility] [address] [facility], [address] [place] [address] Mitul Garza MD [facility] Women's Health requesting cardiac clearance 10/19/2024 Travel 10/18/2024 11:27 AM EDT - 10/18/2024 11:59 PM EDT Hospital Encounter [facility] [address] [place] [address] Chronic heart failure, unspecified heart failure type (CMS/HCC); Bradycardia Discharge Disposition: Home or Self Care 10/18/2024 Travel 10/17/2024 Travel 10/17/2024 Telephone [facility] [address] [place] [address] Madhuri Brand RN 10/16/2024 10:00 AM EDT Office Visit [facility] [address] [facility], [address] [place] [address] Sara Johnson APRN HFrEF (heart failure with reduced ejection fraction) (CMS/HCC) (Primary Dx); Iron deficiency anemia, unspecified iron deficiency anemia type; NICM (nonischemic cardiomyopathy) (CMS/HCC); Bradycardia 10/16/2024 Travel 10/12/2024 Travel 10/06/2024 10:05 AM EDT - 10/06/2024 1:37 PM EDT Emergency [facility] [address] [place] [address] Tyshawn Snell MD Chest wall pain (Primary Dx) Discharge Disposition: Home or Self Care 10/06/2024 Travel 10/05/2024 Telephone [facility] [address] [place] [address] Sabiha Taylor, PharmD 10/04/2024 Orders Only [facility] [address] [place] [address] Brittaney Morales, RN 10/01/2024 Telephone [facility] [address] [place] [address] Vonnie Ramos MD 09/28/2024 Orders Only [facility] Medicine [facility]ties [address] [place] [address] Mariam Urban MD Lung nodules (Primary Dx) 09/28/2024 Orders Only [facility] [address] [place] [address] Brittaney Morales RN Lung nodules (Primary Dx); Scleroderma (CMS/HCC) 09/28/2024 Travel 09/27/2024 4:30 PM EDT - 09/27/2024 11:59 PM EDT Hospital Encounter Medical Office Building Cardiac Diagnostic Testing Medical Office Building Echo [facility] [address], [address] [place] [address] Bradycardia Discharge Disposition: Home or Self Care 09/27/2024 2:40 PM EDT Office Visit [facility] [address], [address] [place] [address] Mitul Garza MD Chronic heart failure, unspecified heart failure type (CMS/HCC) (Primary Dx); Bradycardia 09/27/2024 Travel from Last 3 Months Immunizations Immunization Administration Dates Next Due Influenza, injectable, MDCK, preservative free, quadrivalent 01/23/2023,01/19/2022 Influenza, seasonal, injectable, preservative fr ee 12/24/2023 Family History Medical History Relation Name Comments Obesity Brother Abnormal EKG Father Nye Craft Arrhythmia Father Nye Craft Arthritis Father Nye Craft Atrial fibrillation Father Nye Craft Heart disease Father Mc Craft Obesity Father Mc Craft Arrhythmia Father's Brother Victor Manuel Craft Heart attack Father's Brother Victor Manuel Craft Autoimmune disease Father's Sister 1 Nessa Valle Heart attack Father's Sister 1 Nessa Valle Arrhythmia Father's Sister 2 Nessa Valle Anemia Maternal Grandmother Josi Mancini Breast cancer Maternal Grandmother Josi Mancini Cancer Maternal Grandmother Josi Mancini Anemia Mother Rohini Craft Arthritis Mother Rohini Craft Heart disease Mother Rohini Craft Heart failure Mother Rohini Craft Hypertension Mother Rohini Craft Kidney disease Mother Rohini Craft Obesity Mother Rohini Craft Osteoarthritis Mother Rohini Mckay Stroke Mother Rohini Mckay Sudden Mother Rohini Mckay Thyroid disease Mother Rohini Mckay Breast cancer Mother's Sister Cancer Mother's Sister Heart attack Paternal Grandfather Diabetes Paternal Grandmother Izabel Mckay Diabetes type II Paternal Grandmother Izabel Mckay Relation Name Status Comments Brother Alive Father Mc Mckay Alive Father's Brother Victor Manuel Mckay Alive Father's Sister 1 Nessa Valel Alive Father's Sister 2 Nessa Valle Alive Maternal Grandmother Josi Live Mother Rohini Mckay Mother's Sister Alive Paternal Grandfather Paternal Grandmother Izabel Mckay Social History Tobacco [...] drink first t cyndie in the morning (EYE-VICE PRESIDENT COMPLIANCE) to steady your nerves or to get [...] Mass Index 34.37 12/18/2024 2:21 PM EDT Plan of Treatment Upcoming Encounters Date Type Department Care Team (Late st Contact Info) Description 12/22/2024 3:00 PM EDT Appointment [facility] [address] [place] [address] 12/25/2024 10:00 AM EDT Office Visit [facility] [address], [address] [place] [address] Sara Johnson APRN [address] [place] [address] 01/08/2025 4:00 PM EST Office Visit [facility] [address], [address] [place] [address] Mitul Garza MD [address] [place] [address] 02/19/2025 9:00 AM EST Ancillary Procedure [facility] Medicine [facility]ties [address] [place] [address] 02/19/2025 10:00 AM EST Office Visit [facility] Medicine [facility]ties [address] [place] [address] Mariam Urban MD [address] [place] [address] 04/26/2025 11:10 AM EST Office Visit [facility] Medicine [facility]ties [address], [address] [place] [address] 05/16/2025 2:00 PM EDT Office Visit [facility] [address], [address] [place] [address] Marli Godyo MD [address] [place] [address] Health Maintenance Due Date Last Done Comments [...] 06/16/2023, 04/13/2022, Additional history exists [facility]-Depression Screening 10/26/2025 10/26/2024, 09/05 [id number] Vaccine Completed 12/24/2023, 01/23/2023, 12/12/2021, Additional history exists [facility]-HIV Screening Completed 10/06/2024 [facility]-Hepatitis C Screening Completed 10/06/2024 [facility]-Obesity Intervention Completed 025, 11/30/2024, 10/26/2024, Additional history exists HPV Vaccines Aged Out [...] Procedure Name Priority Date/Time Associated Diagnosis Comments CBC WITH AUTO DIFFERENTIAL Routine 11/30/2024 3:44 PM EDT Acute on chronic systolic heart failure (CMS/HCC) Iron deficiency anemia, unspecified iron deficiency anemia type IRON & TOTAL IRON BINDING CAPACITY, PLASMA (INCLUDES TRANSFERRIN) Routine 11/30/2024 3:44 PM EDT Acute on chronic systolic heart failure (CMS/HCC) Iron deficiency anemia, unspecified iron deficiency anemia type FERRITIN, SERUM Routine 11/30/2024 3:44 PM EDT Acute on chronic systolic heart failure (CMS/HCC) Iron deficiency anemia, unspecified iron deficiency anemia type MR CARDIAC MORPHOLOGY AND FUNCTION W RADHA [...] ECG ADULT STAT 10/06/2024 9:41 AM EDT ADULT PATCH MONITOR - 14 DAY Routine 09/27/2024 4:48 PM EDT Bradycardia CREATINE KINASE, TOTAL, PLASMA Routine 09/27/2024 4:33 [...] Recently Relevant to Health Maintenance Results * Iron and TIBC (11/30/2024 3:44 PM EDT) Pathologist [facility] Iron, Plasma 89 30 - 160 ug/dL 11/30/2024 4:26 PM EDT [facility] Transferrin, Plasma 308 200 - 360 mg/dL 11/30/2024 4:26 PM EDT [facility] Total Iron Binding Capacity, Plasma 385 240 - 450 ug/mL 11/30/2024 4:26 PM EDT [facility] Transferrin Saturation 23 14 - 50 % 11/30/2024 4:26 PM EDT [facility] Blood Venous blood specimen / Unknown Venipuncture / Unknown 11/30/2024 3:44 PM EDT 11/30/2024 3:52 PM EDT us Mitul Garza MD LAB BLOOD ORDERABLES Final Res ult [facility] [address] [place] [address] * (ABNORMAL) CBC and differential (11/30/2024 3:44 PM EDT) Only the most recent of2 resultswithin the time period is included. Pathologist [facility] WBC Count 6.73 3.70 - 10.30 10*3/uL [...] 4:10 PM EDT [facility] Blood Venous blood specimen / Unknown Venipuncture / Unknown 11/30/2024 3:44 PM EDT 11/30/2024 3:56 PM EDT Narrative [facility] - 11/30/2024 4:10 PM EDT Therapeutic decision making should be based on absolute values, rather than percentages. us Mitul Garza MD LAB BLOOD ORDERABLES Final Res ult Performing Organization Address City/[facility]/ZIP Co de Phone Number [facility] [address] [place] [address] * Ferritin (11/30/2024 3:44 PM EDT) Ferritin, Serum 34 13 - 150 ng/mL 11/30/2024 4:28 PM EDT [facility] Blood Venous blood specimen / Unknown Venipuncture / Unknown 11/30/2024 3:44 PM EDT 11/30/2024 3:52 PM EDT us Mitul Garza MD LAB BLOOD ORDERABLES Final Res ult Performing Organization Address City/[facility]/ZIP Co de Phone Number [facility] [address] [place] [address] * MR Cardiac Morphology and Function W [...] enhancement. Normal T2 mapping as well as venetie ira T1 mapping and ECV is not suggestive [...] --- Tissue Characterization --- T1 Mapping: Myocardial venetie ira T1: 1192ms Blood pool venetie ira T1: 1657ms Myocardial post contrast T1: 415ms [...] --- Tissue Characterization --- T1 Mapping: Myocardial venetie ira T1: 1192ms Blood pool venetie ira T1: 1657ms Myocardial post contrast T1: 415ms [...] enhancement. Normal T2 mapping as well as venetie ira T1 mapping andECV is not suggestive of [...] * Hematocrit, Blood (10/18/2024 11:49 AM EDT) [facility] HCT 34.1 34.0 - 45.0 % LAB HEMATOLOGY METHOD 10/18/2024 12:36 PM EDT [facility] Blood Venous blood specimen / Unknown Venipuncture / Unknown 10/18/2024 11:49 AM EDT 10/18/2024 12:26 PM EDT us Oral Palmer DO LAB BLOOD ORDERABLES Final Result [facility] [address] [place] [address] * Troponin T, High Sensitivity, 2 Hour, Plasma (10/06/2024 12:05 PM EDT) [facility] Troponin T, High Sensitivity, 2 Hour <6 <14 ng/L 10/06/2024 12:43 PM EDT [facility] Blood Venous blood specimen / Unknown Venipuncture / Unknown 10/06/2024 12:05 PM EDT 10/06/2024 12:23 PM EDT us Tyshawn Snell MD LAB BLOOD ORDERABLES Final Result Performing Organization Address City/[facility] Co de Phone Number [facility] [address] [place] [address] * ECG Adult (10/06/2024 11:09 AM EDT) Only the most recent of3 resultswithin the time period is included. EKG DIAGNOSIS CLASS Abnormal MUSE ECG Ventricular Rate 72 BPM MUSE ECG Atrial Rate 72 BPM MUSE ECG IN Interval 194 ms MUSE ECG QRSD Interval 160 ms MUSE ECG QT Interval 498 ms MUSE ECG QTC Interval 545 ms MUSE ECG P [place] 63 degrees MUSE ECG R [place] 127 degrees MUSE ECG T Wave [place] 26 degrees MUSE ECG Diagnosis Normal sinus rhythm MUSE ECG Diagnosis Right axis deviation MUSE ECG Diagnosis Lateral infarct , age undetermined MUSE ECG Diagnosis Nonspecific intraventricular block MUSE ECG Diagnosis Abnormal ECG MUSE ECG Diagnosis MUSE ECG Diagnosis Compared to last ECG MUSE ECG Diagnosis No significant change was found MUSE ECG Diagnosis Confirmed by Boaz Pisano ([id number]) on 10/07/2024 1:04:12 PM MUSE ECG 10/06/2024 11:0 9 AM EDT 10/07/2024 1:04 PM EDT us Courtney MELGAR ECG ORDERABLES Final Res ult Performing Organization Address City/[facility] Co de Phone Number MUSE ECG [...] Zakiya Liz MD on 10/06/2024 11:03 AM Tyshawn Snell MD IMG XR PROCEDURES Final Res ult * ED HIV 1/2 Antibody/Antigen Screen w/Reflex to HIV 1/2 Differentiation (10/06/2024 10:03 AM EDT) HIV 1 & 2 Antibody/Antigen Screen Non Reactive Non Reactive 10/06/2024 11:02 AM EDT [facility] Comment:Screening for HIV 1 & 2 antibodies, and P24 antigen is NONREACTIVE. No confirmatory testing is required. Blood Venous blood specimen / Unknown Venipuncture / Unknown 10/06/2024 10:03 AM EDT 10/06/2024 10:23 AM EDT Tyshawn Snell MD LAB BLOOD ORDERABLES Final Result [facility] [address] [place] [place] [address] * Troponin now and 120 min (10/06/2024 10:03 AM EDT) Troponin T, High Sensitivity, 0 Hour <6 <14 ng/L 10/06/2024 10:28 AM EDT [facility] Blood Venous blood specimen / Unknown Venipuncture / Unknown 10/06/2024 10:03 AM EDT 10/06/2024 10:07 AM EDT Tyshawn Snell MD LAB BLOOD ORDERABLES Final Result Performing Organization Address City/[facility]/ZIP Co de Phone Number [facility] [address] [place] [address] * Hepatitis C Antibody - ED (10/06/2024 10:03 AM EDT) Hepatitis C Antibody Negative Negative 10/06/2024 11:04 AM EDT [facility] Blood Venous blood specimen / Unknown Venipuncture / Unknown 10/06/2024 10:03 AM EDT 10/06/2024 10:23 AM EDT Tyshawn Snell MD LAB BLOOD ORDERABLES Final Result Performing Organization Address [facility] Co de Phone Number [facility] [address] [place] [address] * Lipase (10/06/2024 10:03 AM EDT) Pathologist [facility] Lipase, Plasma 26 19 - 63 U/L 10/06/2024 10:28 AM EDT [facility] Blood Venous blood specimen / Unknown Venipuncture / Unknown 10/06/2024 10:03 AM EDT 10/06/2024 10:07 AM EDT Tyshawn Snell MD LAB BLOOD ORDERABLES Final Result Performing Organization Address City/[facility] Co de Phone Number [facility] [address] [place] [address] * CMP (10/06/2024 10:03 AM EDT) Only the most recent of2 resultswithin the time period is included. Glucose, Plasma 88 74 - 99 mg/dL 10/06/2024 10:28 AM EDT [facility] BUN, Plasma 10 7 - 21 mg/dL 10/06/2024 10:28 AM EDT [facility] Creatinine, Plasma 0.92 0.60 - 1.10 mg/dL 10/06/2024 10:28 AM EDT [facility] BUN/Creatinine Ratio 11 10/06/2024 10:28 AM EDT [facility] Sodium, Plasma 140 136 - 145 mmol/L 10/06/2024 10:28 AM EDT [facility] Potassium, Plasma 4.0 3.6 - 4.9 mmol/L 10/06/2024 10:28 AM EDT [facility] Chloride, Plasma 104 97 - 107 mmol/L 10/06/2024 10:28 AM EDT [facility] CO2, Plasma 26 22 - 29 mmol/L 10/06/2024 10:28 AM EDT [facility] Anion Gap 10 6 - 16 mmol/L 10/06/2024 10:28 AM EDT [facility] Total Calcium, Plasma 9.2 8.9 - 10.2 mg/dL 10/06/2024 10:28 AM EDT [facility] Total Protein 6.7 6.3 - 7.9 g/dL 10/06/2024 10:28 AM EDT [facility] Albumin, Plasma 4.0 3.5 - 5.2 g/dL 10/06/2024 10:28 AM EDT [facility] AST, Plasma 27 10 - 35 U/L 10/06/2024 10:28 AM EDT [facility] ALT, Plasma 21 10 - 35 U/L 10/06/2024 10:28 AM EDT [facility] Alkaline Phosphatase, Plasma 89 35 - 104 U/L 10/06/2024 10:28 AM EDT [facility] Total Bilirubin, Plasma 0.2 0.2 - 1.1 mg/dL 10/06/2024 10:28 AM EDT [facility] eGFRcr 75.5 mL/min/1.7 3m*2 10/06/2024 10:28 AM EDT [facility] Comment:Reported eGFRcr in m L/min/1.73m2 is based the CKD-EPI 2020 equation that does not use a race coefficient. Blood Venous blood specimen / Unknown Venipuncture / Unknown 10/06/2024 10:03 AM EDT 10/06/2024 10:07 AM EDT Tyshawn Snell MD LAB BLOOD ORDERABLES Final Result [facility] [address] [place] [address] * Adult Patch Monitor - 14 Day (09/27/2024 4:48 PM EDT) BSA 1.87 m2 BIOTELEMETRY Anatomical Region Laterality Modality Other Narrative 10/27/2024 9:03 PM EDT PRELIMINARY FINDINGS: Analysis date: 10/20/24 - by RO1-CCT Patient monitored for 3d 18h, analyzable time was 3d 18h starting on 09/27/2024 04:45 pm. Primary rhythm was Sinus Rhythm. Average heart rate was 85 bpm, Minimum heart rate was 70 bpm on Day :10:23 am, Max heart rate was 128 bpm on Day :35:55 am SVE(s): [place] was 0.02 %, 86 total SVE(s) SV Arrhythmia(s): 1 event(s), longest event 3 beats on Day :36:00 am, fastest event 128 bpm on Day :36:00 Am PVC(s): [place] was < 0.01 %, 15 total PVC(s), 1 disparate morphologies PHYSICIAN COMMENTS: Agree with the findings above. Mitul Garza MD [facility] PROCEDURES Final Result * Creatine Kinase (CK), Total (09/27/2024 4:33 PM EDT) Creatine Kinase, Plasma 59 37 - 168 U/L 09/27/2024 5:51 PM EDT [facility] Blood Venous blood specimen / Unknown Venipuncture / Unknown 09/27/2024 4:33 PM EDT 09/27/2024 4:34 PM EDT Mitul Garza MD LAB BLOOD ORDERABLES Final Res ult Performing Organization Address City/[facility]/ZIP Co de Phone Number [facility] [address] [place] [address] * N-Terminal Probnp, Plasma (09/27/2024 4:33 PM EDT) N-Terminal, PROBNP, Plasma 238 0 - 899 pg/mL 09/27/2024 5:51 PM EDT [facility] Blood Venous blood specimen / Unknown Venipuncture / Unknown 09/27/2024 4:33 PM EDT 09/27/2024 4:34 PM EDT Mitul Garza MD LAB BLOOD ORDERABLES Final Res ult Performing Organization Address City/[facility]/ZIP Co de Phone Number [facility] [address] [place] [address] * Angiotensin converting enzyme (09/27/2024 4:33 PM EDT) ANGIOTENSIN CONVERTING ENZYME 37 16 - 85 U/L 09/29/2024 11:50 PM EDT [facility] ([facility] Blood Venous blood specimen / Unknown Venipuncture / Unknown 09/27/2024 4:33 PM EDT 09/27/2024 4:34 PM EDT Narrative [facility] ([facility]) - 09/29/2024 11:50 PM EDT Performed By: [facility] [address] [place] [address] Outside Sales Manager: Fidel Sullivan MD, PhD CLIA Number: [id number] Mitul Garza MD LAB BLOOD ORDERABLES Final Res ult Performing Organization Address City/[facility] de Phone Number [facility] [email or web address]) [address] [place] [address] * Mammography Breast Screening Tomosynthesis Bilateral (04/13/2022 [...] to: 01/22/2019 Mammography Outside Images Upload at [facility] 08/28/2019 Mammography Outside Images Upload at [facility] 01/24/2020 Mammography Outside Images Upload at [facility] 03/10/2021 Mammography Outside Images Upload at [facility] BREAST COMPOSITION: The breasts have scattered areas of fibroglandular density. FINDINGS: There are silicone gel, intact retro-pectoral implant(s) present in bilateral breasts. There is no evidence of suspicious masses, calcifications, or other abnormal findings. us Bill Lamar MD IMG BI PROCEDURES Final Resul t from Last 3 Months or Most Recently Relevant to Health Maintenance Insurance [employer] Care Teams Life Support Technician Relationship Specialty Start Date End Date Bill Lamar MD [address] [facility] [place] [address] PCP - General 04/13/22
--- OUTSIDE RECORDS SUMMARY | 2024-12-22 11:44 | XMS_ITS | Encounter Summary ---
Author Organization Healthcare Address [address] [place] [address] Care Team Providers Care Supervisor Yard Name Role Phone Bill Lamar MD Primary Care Provider [phone] Encounter Details Date Type Department Care Team (Late Contact Info) Description 01/12/2024 Orders Only External Location [address] [place] [phone] Provider, External Social History Tobacco Use Types [...] PM EDT Appointment [facility] [address] [place] [address] 12/25/2024 10:00 AM EDT Office Visit [facility] [address], [address] [place] [phone] Sara Johnson, AUDIO VISUAL EQUIPMENT RENTAL CLERK [address] [place] [address] 01/08/2025 4:00 PM EST Office Visit [facility] [place] [facility] [address], [address] [place] [phone] Mitul Garza MD [address] [place] [address] 02/19/2025 9:00 AM EST Ancillary Procedure [facility] Specialties [address] [place] [address] 02/19/2025 10:00 AM EST Office Visit [facility] [address], [address] [place] [address] Mariam Urban MD [address] [place] [address] 04/26/2025 11:10 AM EST Office Visit [facility] [address] [place] [address] 05/16/2025 2:00 PM EDT Office Visit [facility] [address] [place] [address] Marli Godoy MD [address] [place] [address] documented as of this encounter Goals Goal Patient Goal Type Associated Problems Recent Progress Patient-Stated? Author Patient will verbalize understanding of orthotic wear , care and precautions. Occupational Therapy No Pat Bueno documented as of this encounter Procedures Procedure Name Priority Date/Time Associated Diagnosis Comments PET OUTSIDE IMAGES 01/12/2024 3:42 PM EST documented in this encounter Results * PET OUTSIDE IMAGES (01/12/2024 3:42 PM EST) Anatomical Region Laterality Modality Nuclear Medicine 01/12/2024 3:42 PM EST us External Provider IMG NM [...] documented as of this encounter Care Teams Supervisor Yard Relationship Specialty Start Date End Date Bill Lamar MD [address] [facility] [place] [address] PCP - General 04/13/22 documented as of this encounter
--- OUTSIDE RECORDS SUMMARY | 2024-12-22 11:44 | XMS_ITS | Encounter Summary ---
Author Organization Healthcare Address [address] [place] [address] Care Team Providers Care Ophthalmic Nurse Name Role Phone Bill Lamar MD Primary Care Provider [phone] Reason for Referral * Consultation (Routine) - Authorized Specialty Diagnoses / Procedures Referred By Contac t Referred To Contact Cardiac Rehabilitation Diagnoses HFrEF (heart failure with reduced ejection fraction) NICM (nonischemic cardiomyopathy) ([facility]) Mitul Garza MD [address] [place] [address] Phone: tel: fax: Referral ID Status Reason Start Date Expiration Date Visits Requested Visits Authorized [id number] Authorized Consult and Treat 10/31/2024 05/02/2026 1 1 Scheduling Instructions Pt would like to learn more about program closer to her home. Encounter Details Date Type Department Care Team (Late st Contact Info) Description 10/31/2024 Telephone [facility] [place] [address] [place] [phone] Brittaney Morales, RN [facility] - Outpatient Center Social History Tobacco Use [...] drink first t cyndie in the morning (EYE-SUPERVISOR BENZENE REFINING) to steady your nerves or to get [...] Telephone Encounter - Brittaney Morales RN - 10/31/2024 9:48 AM EDT Spoke with pt. States her pressures are running in the 105/70 range which she is symptomatic with at times. Will not make med changes today. Updated on Dr. Garza's view of MRI from [facility] and informed her she would call her once she got back in town next week. Pt verbalized understanding. Also encouraged pt to consider cardiac rehab and educated on that program. Agreed to learn more about it and consider attending if able to go somewhere closer to her home. Will place referral today. Lastly, pt has not heard back on iron infusions so will follow-up on that today and pt to notify me if not heard from them by end of the day today. documented in this encounter Plan of Treatment Upcoming Encounters Date Type Department Care Team (Late st Contact Info) Description 12/22/2024 3:00 PM EDT Appointment [facility] [address] [place] [address] 12/25/2024 10:00 AM EDT Office Visit [facility] [address], [address] [place] [address] Sara Johnson APRN [address] [place] [address] 01/08/2025 4:00 PM EST Office Visit [facility] [address], [address] [place] [address] Mitul Garza MD [address] [place] [address] 02/19/2025 9:00 AM EST Ancillary Procedure [facility] Medicine Specialties [address] [place] [address] 02/19/2025 10:00 AM EST Office Visit [facility] [address], [address] [place] [address] Mariam Urban MD [address] [place] [address] 04/26/2025 11:10 AM EST Office Visit [facility] Specialties [address], [address] [place] [address] 05/16/2025 2:00 PM EDT Office Visit [facility] Medicine Specialties [address], [address] [place] [address] Marli Godoy MD [address] [place] [address] Scheduled Referrals Name Type Priority Associated Diagnoses Order Schedule Ambulatory referral to Cardiac Rehab Outpatient Referral Routine HFrEF (heart failure with reduced ejection fraction) ([facility]) NICM (nonischemic cardiomyopathy) ([facility]) Expected: 10/31/2024 (Approximate), Expires: 05/04/2026 documented as of this encounter Goals Goal Patient Goal Type Associated Problems Recent Progress Patient-Stated? Author Patient will verbalize understanding of orthotic wear , care and precautions. Occupational Therapy Pat Oneal documented as of this encounter Visit Diagnoses Diagnosis HFrEF (heart failure with reduced ejection fraction)- Primary NICM (nonischemic cardiomyopathy) ([facility]) documented in this encounter Additional Health Concerns Assessment Noted Time PHQ-9 Depression Total Score: 0 09/28/19 25 3:19 PM EDT A fall risk assessment has been complete d for the patient 10/26/2024 10:08 AM EDT A Body Mass Index follow-up plan has been documented for the patient 10/26/2024 4:38 PM EDT documented as of this encounter Care Teams Ophthalmic Nurse Relationship Specialty Start Date End Date Bill Lamar MD [address] [place] [address] PCP - General 04/13/22 documented as of this encounter
--- OUTSIDE RECORDS SUMMARY | 2024-12-22 11:44 | XMS_ITS | Encounter Summary ---
Author Organization Healthcare Address [address] [place] [address] Care Team Providers Care Electric Golf Cart Repairers Name Role Phone Bill Lamar MD Primary Care Provider [phone] Encounter Details Date Type Department Care Team (Latest Contact Info) Description 12/08/2024 Travel Social History Tobacco Use Types Packs/Day [...] drink first t cyndie in the morning (EYE-TIPPING MACHINE OPERATOR) to steady your nerves or to get [...] Upcoming Encounters Date Type Department Care Team ([facility] st Contact Info) Description 12/22/2024 3:00 PM EDT Appointment [facility] [address] [place] [address] 12/25/2024 10:00 AM EDT Office Visit [facility] [address], [address] [place] [address] Sara Johnson APRN [address] [place] [address] 01/08/2025 4:00 PM EST Office Visit [facility] [address], [address] [place] [address] Mitul Garza MD [address] [place] [address] 02/19/2025 9:00 AM EST Ancillary Procedure [facility] [address], [address]nd [place] [address] 02/19/2025 10:00 AM EST Office Visit [facility] [address], [address]nd [place] [address] Mariam Urban MD [address] [place] [address] 04/26/2025 11:10 AM EST Office Visit [facility] [address], [address] [place] [address] 05/16/2025 2:00 PM EDT Office Visit [facility] [address], [address] [place] [address] Marli Godoy MD [address] [place] [address] documented as of this encounter [...] documented as of this encounter Care Teams Electric Golf Cart Repairers Relationship Specialty Start Date End Date Bill Lamar MD [address] [place] [address] PCP - General 04/13/22 documented as of this encounter
--- OUTSIDE RECORDS SUMMARY | 2024-12-22 11:44 | XMS_ITS | Encounter Summary ---
Author Organization Healthcare Address [address] [place] [address] Care Team Providers Care Extrusion Process Operator Name Role Phone Bill Lamar MD Primary Care Provider [phone] Encounter Details Date Type Department Care Team (Late Contact Info) Description 07/30/2022 Orders Only External Location [address] [place] [address] Provider, External Social History Tobacco Use Types [...] PM EDT Appointment [facility] [address] [place] [address] 12/25/2024 10:00 AM EDT Office Visit [facility] [place] [facility] [address], [address] [place] [address] Sara Johnson, FOOD SERVICE REPRESENTATIVE [address] [place] [address] 01/08/2025 4:00 PM EST Office Visit [facility] [place] [address], [address] [place] [address] Mitul Garza MD [address] [place] [address] 02/19/2025 9:00 AM EST Ancillary Procedure [facility] Medicine Specialties [address], [address] [place] [address] 02/19/2025 10:00 AM EST Office Visit [facility] Special[facility] [address], [address] [place] [address] Mariam Urban MD [address] [place] [address] 04/26/2025 11:10 AM EST Office Visit [facility] [address], [address] [place] [address] 05/16/2025 2:00 PM EDT Office Visit [facility] [address], [address] [place] [address] Marli Godoy MD [address] [place] [address] documented as of this encounter Procedures Procedure Name Priority Date/Time Associated Diagnosis Comments MR OUTSIDE IMAGES 07/30/2022 4:39 PM EDT documented in this encounter Results * MR transfer of outside films (07/30/2022 4:39 PM EDT) Anatomical Region Laterality Modality Magnetic Resonan ce 07/30/2022 4:39 PM EDT us External Provider IMG MRI [...] documented as of this encounter Care Teams Extrusion Process Operator Relationship Specialty Start Date End Date Bill Lamar MD [address] [place] [address] PCP - General 04/13/22 documented as of this encounter
--- OUTSIDE RECORDS SUMMARY | 2024-12-22 11:45 | XMS_ITS | Encounter Summary ---
Author Organization [employer] ([place], [place], [place], [place]) Address [address] [place] [address] Care Team Providers Care Grain Combiner Name Role Phone Unavailable Primary Care Provider Unavailabl e Encounter Details Date Type Department Care Team (Late st Contact Info) Description 09/29/2018 Transcribed Document [facility] Family Medicine [address] [place] [address] ProviderLeyda MD [address] [place] [address] Social History Tobacco Use Types Packs/Day Years [...]
--- OUTSIDE RECORDS SUMMARY | 2024-12-22 11:45 | XMS_ITS | Encounter Summary ---
Author Organization [employer] ([place], [place], [place], [place]) Address [address] [place] [address] Care Team Providers Care Rubber Stamp Assembler Name Role Phone Unavailable Primary Care Provider Unavailabl e Encounter Details Date Type Department Care Team (Late st Contact Info) Description 09/29/2018 Transcribed Document [facility] [place] [address] [place], [place] [id number] ProviderLeyda MD [address] [place] [address] Social History Tobacco Use Types Packs/Day Years [...] On: 09/29/2018 11:53 EDT by Carissa Pulido [facility] Unit Coord Height and Weight, Clinical Dosing Weight Source : Standing scale Weight Entry Format : [place] Clinical Dosing Weight : 79.55 kg Weight, Pounds : 175 lb Carissa Pulido Care [facility] Unit Coord - 09/29/2018 11:53 EDT documented in this encounter Plan of Treatment Not on file documented as of this encounter Visit Diagnoses Not on filedocumented in this encounter
--- OUTSIDE RECORDS SUMMARY | 2024-12-22 11:45 | XMS_ITS | Encounter Summary ---
Author Organization [employer] ([place], [place], [place], [place]) Address [address] [place] [address] Care Team Providers Care Supervisor Uranium Processing Name Role Phone Unavailable Primary Care Provider Unavailabl e Encounter Details Date Type Department Care Team (Late st Contact Info) Description 05/25/2018 Transcribed Document [facility] [place] [address] ProviderLeyda MD [address] [place] [id number] Social History Tobacco Use Types Packs/Day Years [...] Clark MD - 05/25/2018 3:23 PM CDT [address], [place] [address] Patient Copy Patient Information: Name: MELINDA APONTE Current Date: 05/25/2018 15:23:27 : 1975 Patient Address: [facility] [address] Patient Attending Physician: ZINA STEELE [facility] Primary Care Provider: Bill Lamar MD Primary Care Provider Discharge Diagnosis: 1:Epigastric pain Weight on Admission: 170 lb, 2 oz Comment: Follow-up Instructions: With: Address: When: [place] [address] Business (1) Within As needed Comments: [...] getting enough exercise. ??? Smoking. ??? Taking qvux-cek-bcjkedh pain medicines, like aspirin and ibuprofen. SYMPTOMS [...] 11/18/2004 Document Revised: 02/26/2014 Document Reviewed: 01/16/2014 [employer] Interactive Patient Education ? 2017 [email or web address]. Colonoscopy, Adult, Care After This sheet gives [...] slower pace than normal. ? Eat soft, gqja-ot-rsceov foods. ? Rest often. ??? Take fmoq-zba-ixmlbev or prescription medicines only as told by [...] 10/05/2004 Document Revised: 11/15/2016 Document Reviewed: 05/04/2016 [employer] Interactive Patient Education ? 2017 [employer] Hiatal Hernia A hiatal hernia occurs [...] symptoms. ??? Medicines. These may include: ? Fnfw-orq-puucfkq antacids. ? Medicines that make your stomach [...] These may include: ? Fatty foods. ? [place] fruits. ? Other foods and drinks that [...] 05/13/2004 Document Revised: 06/14/2016 Document Reviewed: 02/08/2014 [employer] Interactive Patient Education ? 2017 [employer] Gastric Polyps A gastric polyp, also [...] Follow these instructions at home: ??? Take itak-rvk-egpzied and prescription medicines only as told by [...] 02/07/2013 Document Revised: 07/12/2016 Document Reviewed: 03/07/2016 [employer] Interactive Patient Education ? 2017 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 ? [place] or spicy foods. ? Chocolate and peppermint. General instructions ??? Take aptp-mup-dizojxw and prescription medicines only as told by [...] Revised: 07/29/2016 Document Reviewed: 01/15/2016 ? 2017 [employer] Medication Leaflets: omeprazole (oh MEP ra zol) [...] a broken bone while taking this medicine terminal gauger or more than once per day. What [...] by infection with Helicobacter pylori (H. pylori). Uwqf-gni-ohnqewe (OTC) omeprazole is used to help control [...] medicine exactly as directed. Use Prilosec OTC (kttg-eet-pxfuytr) exactly as directed on the label, or [...] may report side effects to FDA at 5-708-VTI-7773. What other drugs will affect omeprazole? Sometimes it is not safe to use certain medications at the same time. Some drugs can affect your blood levels of other drugs you take, which may increase side effects or make the medications less effective. Tell your doctor about all your current medicines. Many drugs can affect omeprazole, especially: ? clopidogrel; ?? methotrexate; ?? [place]'s wort; or ?? an antibiotic--amoxicillin, clarithromycin, rifampin. This list is not complete and many other drugs may affect omeprazole. This includes prescription and tuzu-aem-yfjthss medicines, vitamins, and herbal products. Not all [...] to ensure that the information provided by [employer]. ('[employer]') is accurate, up-to-date, and complete, but no guarantee is made to that effect. Drug information contained herein may be time sensitive. [employer] information has been compiled for use by healthcare practitioners and consumers in the [place] and therefore [employer] does not warrant that uses outside of the [place] are appropriate, unless specifically indicated otherwise. [employer] drug information does not endorse drugs, diagnose patients or recommend therapy. [employer] drug information is an informational resource designed [...] effective or appropriate for any given patient. [facility] does not assume any responsibility for any aspect of healthcare administered with the aid of information [facility] provides. The information contained herein is not intended to cover all possible uses, directions, precautions, warnings, drug interactions, allergic reactions, or adverse effects. If you have questions about the drugs you are taking, check with your doctor, nurse or pharmacist. Copyright 1601-6711 [facility]. Version: 19.01. Revision Date: 08/29/2017. CIGARETTE SMOKING: The facts are clear, cigarette smoking will shorten your life. Smoking can cause many illnesses along the way. As a healthcare provider, we recommend that you stop smoking. Assistance with quitting is available by contacting 7-782-EQYEVidableNOW. This is a free resource providing counseling, [...] computer, smartphone, or tablet. Just go to [employer] to get started. Questions? Call . [facility] would like to thank you for allowing us to assist you with your healthcare needs. Kath, MELINDA APONTE, (or digital sales representative) have received the above patient education materials/instructions and have verbalized understanding: Patient Signature _ Date/Time Patient Sas Clinical Programmer Signature (if needed) Date/Time Clinician/Hospital Sas Clinical Programmer Signature (if needed) Date/Time documented in this encounter Plan of Treatment Not on file documented as of this encounter Visit Diagnoses Not on filedocumented in this encounter
--- OUTSIDE RECORDS SUMMARY | 2024-12-22 11:45 | XMS_ITS | Encounter Summary ---
Author Organization [employer] ([place], [place], [place], [place]) Address [address] [place] [address] Care Team Providers Care Bank Cashier Name Role Phone Unavailable Primary Care Provider Unavailabl e Encounter Details Date Type Department Care Team (Late st Contact Info) Description 05/25/2018 Transcribed Document [facility] [place] [address] [place] [address] ProviderLeyda MD [facility] [place] [address] Social History Tobacco Use Types Packs/Day Years [...] EDT Electronically signed by Ernesto Betancourt Conversion Food Service Hotel Runner Cerner at 06/22/2022 9:16 AM CDT documented in this encounter Plan of Treatment Not on file documented as of this encounter Visit Diagnoses Not on filedocumented in this encounter
--- OUTSIDE RECORDS SUMMARY | 2024-12-22 11:45 | XMS_ITS | Encounter Summary ---
Author Organization [employer] ([place], [place], [place], [place]) Address [address] [place] [address] Care Team Providers Care Screen Roller Name Role Phone Unavailable Primary Care Provider Unavailabl e Encounter Details Date Type Department Care Team (Late st Contact Info) Description 05/25/2018 Transcribed Document [facility] [place] [address] ProviderLeyda MD [address] [place] [address] [id number] Social History Tobacco Use Types Packs/Day Years [...] WOODY /Sex: 1975 Female Med Rec #: [id number] Physician: ZINA STEELE MD-GAE Financial #: [id number] Pt. Type: O Room/Bed: [facility] Admit/Disch: 05/25/18 12:46:00 - Institution: [facility] [place] Alyssa - Case Attendance Entry 1 Entry 2 Entry 3 Case Attendee ZINA STEELE MD-GAE SHERMAN, YVONNE D., RN TALIB HERNANDES NA Role Performed Surgeon/Proceduralist, Banana Ripening Room Supervisor, First CITY PLANT SUPERVISOR/Nurse Physician Advisor First Time In 05/25/18 14:10:00 05/25/18 13:56:00 [...] Endo - Case Attendance Audit 05/25/18 14:58:08 Milk Receiver Tank Truck: VIKTORIA Modifier: VIKTORIA 1 <+> Time Out [...] Biopsy, Gastric Polypectomy, Colon Biopsy 05/25/18 14:53:22 Milk Receiver Tank Truck: VIKTORIA Modifier: VIKTORIA 1 <*> Procedure Colonoscopy, Esophagogastroduodenoscopy, Duodenal Biopsy, Gastric Polypectomy 2 <*> Procedure Colonoscopy, Esophagogastroduodenoscopy, Duodenal Biopsy, Gastric Polypectomy 3 <*> Procedure Colonoscopy, Esophagogastroduodenoscopy, Duodenal Biopsy, Gastric Polypectomy 4 <*> Procedure Colonoscopy, Esophagogastroduodenoscopy, Duodenal Biopsy, Gastric Polypectomy 05/25/18 14:20:26 Milk Receiver Tank Truck: VIKTORIA Modifier: SHERMAYD <+> 2 Procedure 3 <*> Procedure Colonoscopy, Esophagogastroduodenoscopy, Duodenal Biopsy 4 <*> Procedure Colonoscopy, Esophagogastroduodenoscopy, Duodenal Biopsy 05/25/18 14:20:25 Milk Receiver Tank Truck: VIKTORIA Modifier: SHERMAYD 1 <*> Procedure Colonoscopy, Esophagogastroduodenoscopy, Duodenal Biopsy 2 <-> Procedure Colonoscopy, Esophagogastroduodenoscopy, Duodenal Biopsy 05/25/18 14:14:02 Milk Receiver Tank Truck: IVKTORIA Modifier: SHERMAYD 1 <*> Procedure Colonoscopy, Esophagogastroduodenoscopy 2 <*> Procedure Colonoscopy, Esophagogastroduodenoscopy 3 <*> Procedure Colonoscopy, Esophagogastroduodenoscopy 4 <*> Procedure Colonoscopy, Esophagogastroduodenoscopy 05/25/18 14:12:23 Milk Receiver Tank Truck: VIKTORIA Modifier: SHERMAYD <+> 1 Time In [...] Endo - Case Times Audit 05/25/18 14:58:01 Milk Receiver Tank Truck: VIKTORIA Modifier: MARCINYD <+> 1 Out Room Time <+> 1 Stop Time <+> 1 Stop Time 05/25/18 14:13:25 Milk Receiver Tank Truck: VIKTORIA Modifier: MARCINYD <+> 1 Start Time [...] Yes Assessment Complete Fire Risk TOÑO SILVA, dental treatment coordinator Verified By Fire Risk 05/25/18 13:51:00 Assessment Verified Date/Time Fire Risk High Risk Protocol Yes Implemented Standard Fire Yes Safety Precautions Followed Last Modified By: TOÑO SILVA RN 05/25/18 13:51:59 Josef Endo - General Case Barker Peeler 1 Case Information OR Endo 01 E Case Level 1 Room Verified Yes Wound Class III - Contaminated Specialty SN Gastroenterology Anesthesia Type MAC ASA Class 2 Diagnosis Preop Diagnosis gerd, hx of polpys, constipation Postop Diagnosis barretts, gastric polyps, Hiatal hernia, diverticulosis, redundant colon Last Modified By: TOÑO SILVA RN 05/25/18 14:58:42 MA[facility]IO Endo - General Case Data Audit 05/25/18 14:58:42 Milk Receiver Tank Truck: VIKTORIA Modifier: SHERMAYD 1 <*> Postop Diagnosis barretts, gastric polyps, Hiatal hernia, diverticulosis, redundant colon 05/25/18 14:42:53 Milk Receiver Tank Truck: VIKTORIA Modifier: SHERMAYD 1 <*> Postop Diagnosis barretts, gastric polyps, Hiatal hernia, diverticulosis 05/25/18 14:29:00 Milk Receiver Tank Truck: VIKTORIA Modifier: SHERMAYD <+> 1 Postop Diagnosis 05/25/18 14:08:50 Milk Receiver Tank Truck: VIKTORIA Modifier: SHERMAYD 1 <*> OR Endo [...] Endo - Intraoperative Equipment Audit 05/25/18 13:51:45 Milk Receiver Tank Truck: VIKTORIA Modifier: VIKTORIA <+> 2 Photo <+> [...] Endo - Surgical Procedures Audit 05/25/18 14:57:29 Milk Receiver Tank Truck: VIKTORIA Modifier: VIKTORIA 1 <*> Procedure Colonoscopy 1 <+> Stop 5 <*> Procedure Colon Biopsy 5 <+> Stop 05/25/18 14:53:19 Milk Receiver Tank Truck: VIKTORIA Modifier: VIKTORAI 1 <*> Procedure Colonoscopy 1 <+> Physician States Cecum Reached <+> 5 Procedure <+> 5 Primary Procedure <+> 5 Primary Surgeon <+> 5 Specialty <+> 5 Start <+> 5 Wound Class <+> 5 Anesthesia Type <+> 5 Physician States Cecum Reached 05/25/18 14:42:30 Milk Receiver Tank Truck: VIKTORIA Modifier: MARCINYD 1 <*> Procedure Colonoscopy 1 <+> Specialty 1 <*> Start 05/25/18 14:39:00 1 <+> Anesthesia Type 05/25/18 14:31:55 Milk Receiver Tank Truck: IVKTORIA Modifier: SHERMAYD 2 <*> Procedure Esophagogastroduodenoscopy 2 <+> Stop 3 <*> Procedure Duodenal Biopsy 3 <+> Stop 4 <*> Procedure Gastric Polypectomy 4 <+> Stop 05/25/18 14:20:23 Milk Receiver Tank Truck: VIKTORIA Modifier: QUINTONMAYD <+> 4 Procedure <+> 4 Primary Procedure <+> 4 Primary Surgeon <+> 4 Specialty <+> 4 Start <+> 4 Wound Class <+> 4 Anesthesia Type <+> 4 Additional Procedure Description 05/25/18 14:13:59 Milk Receiver Tank Truck: VIKTORIA Modifier: QUINTONMAYD <+> 1 Start 2 [...] Endo - Time Out Audit 05/25/18 14:20:27 Milk Receiver Tank Truck: VIKTORIA Modifier: MARCINYD 1 <*> Procedure to be Performed Colonoscopy, Esophagogastroduodenoscopy, Duodenal Biopsy 05/25/18 14:14:03 Milk Receiver Tank Truck: VIKTORIA Modifier: MARCINYD 1 <*> Procedure to be Performed Colonoscopy, Esophagogastroduodenoscopy Case Comments <None> Finalized By: TOÑO SILVA, RN Document Signatures Signed By: TOÑO SILVA RN 05/25/18 14:58 documented in this encounter Plan of Treatment Not on file documented as of this encounter Visit Diagnoses Not on filedocumented in this encounter
--- OUTSIDE RECORDS SUMMARY | 2024-12-22 11:45 | XMS_ITS | Encounter Summary ---
Author Organization Healthcare Address [address] [place] [address] Care Team Providers Care Ski Tow Operator Name Role Phone Bill Lamar MD Primary Care Provider [phone] Encounter Details Date Type Department Care Team (Latest Contact Info) Description 11/27/2024 Travel Social History Tobacco Use Types Packs/Day [...] drink first t cyndie in the morning (EYE-DIETITIAN HELPER) to steady your nerves or to [...] Upcoming Encounters Date Type Department Care Team ([facility] st Contact Info) Description 12/22/2024 3:00 PM EDT Appointment [facility] [address] [place] [address] 12/25/2024 10:00 AM EDT Office Visit [facility] [address], [address] [place] [address] Sara Johnson APRN [address] [place] [address] 01/08/2025 4:00 PM EST Office Visit [facility] [address], [address] [place] [address] Mitlu Garza MD [address] [place] [address] 02/19/2025 9:00 AM EST Ancillary Procedure [facility] [address], [address] [place] [address] 02/19/2025 10:00 AM EST Office Visit [facility] [address], [address] [place] [address] Mariam Urban MD [address] [place] [address] 04/26/2025 11:10 AM EST Office Visit [facility] [address], [address] [place] [address] 05/16/2025 2:00 PM EDT [facility] [address], [address] [place] [address] Marli Godoy MD [address] [place] [address] documented as of this encounter [...] documented as of this encounter Care Teams Ski Tow Operator Relationship Specialty Start Date End Date Bill Lamar MD [address] [place] [address] PCP - General 04/13/22 documented as of this encounter
--- OUTSIDE RECORDS SUMMARY | 2024-12-22 11:45 | XMS_ITS | Clinical Summary ---
Author Organization [facility] Address [address] [place] [address] Care Team Providers Care Diamond Finishing Supervisor Name Role Phone Bill Lamar MD Primary Care Provider [phone] Allergies Active Allergy Reactions Criticality Noted Date Comments Lamotrigine Hives,Palpitations High 08/31/2021 [place] Other (See Comments) 10/28/2021 Swollen neck Medications acetaminophen (TYLENOL) 650 MG 8 hr tablet Active famotidine (PEPCID) 40 MG tablet Active Yqgvme-Kyhta-Kecw Ac-Ca Fructo (Move Free Joint Health Advance) [...] VACCINE (1 of 2) 2023 INFLUENZA VACCINE 10/05/2024 12/24/2023, , 01/19/2022 MAMMOGRAM 06/26/2025 06/27/2023, 06/06, 06/27/2023, Additional history exists COLONOSCOPY 01/08/2034 01/09/2024, 06/2023, 04/29/2023 COLORECTAL CANCER SCREENING 01/08/2034 HEPATITIS C SCREENING Completed 01/09/2024 , 09/01/2021, 09/01/2021 Procedures Procedure Name Priority Date/Time Associated Diagnosis Comments MAMMO OUTSIDE FILMS Routine 06/27/2023 1 0:36 AM EDT H/O mammogram from Last 3 Months or Most Recently Relevant to Health Maintenance Results * MAMMO Outside Films (06/27/2023 10:36 AM EDT) Narrative SYSTEMGENERATED, DOCUMENTATION - 06/27/2023 10:36 AM EDT This procedure was auto-finalized with no dictation required. Linnette Norton MD IMG MAMMOGRAPHY ORDERABLES F inal Result from Last 3 Months or Most Recently Relevant to Health Maintenance Insurance [facility] PPO Care Teams Diamond Finishing Supervisor Relationship Specialty Start Date End Date Bill Lamar MD PCP - General Internal Medicine 11/05/21
--- OUTSIDE RECORDS SUMMARY | 2024-12-22 11:45 | XMS_ITS | Encounter Summary ---
Author Organization [employer] ([place], [place], [place], [place]) Address [address] [place] [address] Care Team Providers Care Catalytic Converter Operator Helper Name Role Phone Unavailable Primary Care Provider Unavailabl e Encounter Details Date Type Department Care Team (Late st Contact Info) Description 09/29/2018 Transcribed Document [facility] [place] Family Medicine [address] [place] [address] ProviderLeyda MD [facility] [place] [address] Social History Tobacco Use Types Packs/Day Years [...] Source : Stated Height Entry Format : [place] Height, Feet : 5 ft(Converted to: 152 cm, 60 Inch) Height, Inches : 1 Inch(Converted to: 0 ft 1 Inch, 2.54 cm) Clinical Height : 154.94 cm Weight Source : Standing scale Weight Entry Format : [place] Clinical Dosing Weight : 79.55 kg Weight, Pounds : 175 lb Body Surface Area (BSA) : 1.79 m2 Body Mass Index : 33.1 kg/m2 (HI) [place] Body Weight : 47 kg Starr Silva Rn - 09/29/2018 12:13 EDT Health Histories Smoking Status : Never (less than 100 in lifetime; none in last 30 days) Smokeless Tobacco Status : Never Implant/Device Type, Trading Assistant and Model : wong Starr Silva Rn [...] Obtained From : Patient Primary Language : Pakistani Preferred Communication Mode : Verbal Communication Barrier [...] Scale Risk Level : 0-24 Low Risk [place] Fall Interventions : Adequate lighting, Bed in [...] the text rendition version of the form. [place] Coma Buzz Best Motor Response : Obey commands Buzz Best Verbal Response : Oriented [place] Eye Opening Response : Spontaneous [place] Coma Score : 15 Starr Silva Rn - 09/29/2018 12:13 EDT Electronically signed by Ernesto Betancourt Conversion Human Resources Director Cerner at 06/22/2022 9:17 AM CDT documented in this encounter Plan of Treatment Not on file documented as of this encounter Visit Diagnoses Not on filedocumented in this encounter
--- OUTSIDE RECORDS SUMMARY | 2024-12-22 11:45 | XMS_ITS | Encounter Summary ---
Author Organization [employer] ([place], [place], [place], [place]) Address [address] [place] [address] Care Team Providers Care Advertising Strategist Name Role Phone Unavailable Primary Care Provider Unavailabl e Encounter Details Date Type Department Care Team (Late st Contact Info) Description 05/25/2018 Transcribed Document [facility] [place] Family Medicine [address] [place] [address] ProviderLeyda MD [address] [place] [id number] Social History Tobacco Use Types Packs/Day Years [...]
--- OUTSIDE RECORDS SUMMARY | 2024-12-22 11:45 | XMS_ITS | Referral Summary ---
Author Organization [employer] ([place], [place], [place], [place]) Address [address] [place] [address] Care Team Providers Care Fruit Raiser Name Role Phone Unavailable Primary Care Provider Unavailabl e Allergies Active Allergy Reactions Criticality Noted Date Comments Lamotrigine Itching 09/16/2023 [place] 09/16/2023 Medications amitriptyline (ELAVIL) 25 MG tablet [...] Date Tyrone rded Speak language other than Sinhala at home Not on file 03/25/2023 Want [...] Advance Directives For more information, please contact: [phone] * Full Code (Latest Code Status on File) Date Activated Date Inactivated Comments 09/16/2023 11:46 AM 09/17/2023 4:27 AM
--- OUTSIDE RECORDS SUMMARY | 2024-12-22 11:45 | XMS_ITS | Encounter Summary ---
Author Organization [employer] ([place], [place], [place], [place]) Address [address] [place] [address] Care Team Providers Care Rn Radiology Name Role Phone Unavailable Primary Care Provider Unavailabl e Encounter Details Date Type Department Care Team (Late st Contact Info) Description 09/29/2018 Transcribed Document [facility] [place] Family Medicine [address] [place] [address] ProviderLeyda MD [facility] [place] [address] Social History Tobacco Use Types Packs/Day Years [...] Obtained From : Patient Primary Language : Mauritanian Preferred Communication Mode : Verbal Communication Barrier [...] Scale Risk Level : 25-45 Medium Risk [place] Fall Interventions : Adequate lighting, Assistive devices [...] Smokeless Tobacco Status : Never Implant/Device Type, Psychiatric Mental Health Nurse and Model : laurenceteddy Shahnaz Trujillo Rn [...] No. (Last Updated: 05/25/2018 13:10:34 EDT by KAMLAA MOISE RN) Nutrition/Health: Caffeine intake amount: coffee soda daily. (Last Updated: 05/25/2018 13:10:53 EDT by KAMALA MOISE RN) Height and Weight, Clinical Dosing Height Source : Stated Height Entry Format : [place] Height, Feet : 5 ft(Converted to: 152 cm, 60 Inch) Height, Inches : 1 Inch(Converted to: 0 ft 1 Inch, 2.54 cm) Clinical Height : 154.94 cm Weight Source : Standing scale Weight Entry Format : [place] Clinical Dosing Weight : 79.55 kg Weight, Pounds : 175 lb Body Surface Area (BSA) : 1.79 m2 Body Mass Index : 33.1 kg/m2 (HI) [place] Body Weight : 47 kg Shahnaz Trujillo [...]
--- OUTSIDE RECORDS SUMMARY | 2024-12-22 11:45 | XMS_ITS | Encounter Summary ---
Author Organization Healthcare Address [address] [place] [address] Care Team Providers Care Country Director Name Role Phone Bill Lamar MD Primary Care Provider [phone] Encounter Details Date Type Department Care Team (Late st Contact Info) Description 10/05/2024 Telephone [facility] [address] [place] [address] Sabiha Taylor, PharmD Social History Tobacco Use [...] drink first t cyndie in the morning (EYE-LITHOSTRIPPER) to steady your nerves or to get [...] Score 0 10/26/2024 10:08 AM Janeth Tobias * Calculated C-SSRS Risk Score (Lifetime/Recent) Answer Date of Assessment Author No Risk Indicated 10/06/2024 10:15 AM Kimberly Campbell RN * Question Answer Date of Assessment Author 1. Wish to be (Past 1 Month) No 025 10:15 AM Kimberly Campbell RN 2. Non-Specific Active Suici argenis Thoughts (Past 1 Month) No 10/06/2024 10:15 AM Sussy Campbell RN 6. Suicidal Behavior (Lifetime) No 10:15 AM EDT Kimberly Guaman RN documented as of this encounter Miscellaneous Notes * Telephone Encounter - Cassie Anton CPhT - 11/14/2024 10:10 AM EDT Infusion Authorization Not Required Specialty Medication: Venofer J-Code/CPT Code/S-Code: J1756 Quantity and Units of Measure Reviewed: 4 visits Diagnosis Code: D50.9/I50.23 Insurance Name: [employer] Where did you submit request and how (portal/fax/phone number): Reference Number: benji flores 11/14/2024 Follow-Up Filling Pharmacy/SOC: Steph Will review auth status in 3 months. * Telephone Encounter - Sabiha Taylor PharmD - 10/05/2024 3:29 PM EDT [facility] has received therapy plan for medication Venofer. [facility] has contacted the patient and are in the process of completing the authorization for preferred site of care, [facility] . [facility] Specialty Education Summary Patient was assessed via phone for initiation of drug therapy Venofer for diagnosis CHIDI Secondary to heart failure. Plan for administration of therapy in infusion center and planned date of initiation: SALLIE. Anticipated filling pharmacy is [facility] . Education and Counseling Medication specific [...] it pertains to this specialty medication. Sabiha Taylor, Tonio 10/05/24 3:29 PM documented in this encounter Plan of Treatment Upcoming Encounters Date Type Department Care Team (Late st Contact Info) Description 12/22/2024 3:00 PM EDT Appointment [facility] [address] [place] [address] 12/25/2024 10:00 AM EDT Office Visit [facility] [address], [address] [place] [address] Sara Johnson, CROP AND SOIL SCIENTIST [address] [place] [address] 01/08/2025 4:00 PM EST Office Visit [facility] [address], [address] [place] [address] Mitul Garza MD [address] [place] [address] 02/19/2025 9:00 AM EST Ancillary Procedure [facility] [address], [address] [place] [address] 02/19/2025 10:00 AM EST Office Visit [facility] [address], [facility] [place] [address] Mariam Urban MD [address] [place] [address] 04/26/2025 11:10 AM EST Office Visit [facility] [address], [facility] [place] [address] 05/16/2025 2:00 PM EDT Office Visit [facility] [address], [facility] [place] [address] Marli Godoy MD [address] [place] [address] documented as of this encounter [...] documented as of this encounter Care Teams Country Director Relationship Specialty Start Date End Date Bill Lamar MD [address] [place] [address] PCP - General 04/13/22 documented as of this encounter
--- OUTSIDE RECORDS SUMMARY | 2024-12-22 11:45 | XMS_ITS | Encounter Summary ---
Author Organization [employer] ([place], [place], [place], [place]) Address [address] [place] [address] Care Team Providers Care Edge Gluer Name Role Phone Unavailable Primary Care Provider Unavailabl e Encounter Details Date Type Department Care Team (Late st Contact Info) Description 05/25/2018 Transcribed Document [facility] [address] [place] [address] ProviderLeyda MD [facility] [place] [address] Social History Tobacco Use Types Packs/Day Years [...] APONTE /Sex: 1975 Female Med Rec #: [id number] Physician: ZINA STEELE MD-GAE Financial #: [id number] Pt. Type: O Room/Bed: [facility] Admit/Disch: 05/25/18 12:46:00 - Institution: [facility] PreOp Case Times Entry 1 In Preop 05/25/18 13:03:00 Ready for Holding n/a Room Patient Ready for 05/25/18 13:34:00 Surgery Patient Out of Preop 05/25/18 13:34:00 Patient Out of n/a Holding Room [facility] PreOp Case Times Audit 05/25/18 13:34:42 Roll Reclaimer: DANI Modifier: DANI <+> 1 Patient Out of Preop <+> 1 Patient Ready for Surgery Finalized By: KAMALA MOISE RN Document Signatures Signed By: KAMALA MOISE RN 05/25/18 13:35 documented in this encounter Plan of Treatment Not on file documented as of this encounter Visit Diagnoses Not on filedocumented in this encounter
--- OUTSIDE RECORDS SUMMARY | 2024-12-22 11:45 | XMS_ITS | Encounter Summary ---
Author Organization [employer] ([place], [place], [place], [place]) Address [address] [place] [address] Care Team Providers Care Public Information Coordinator Name Role Phone Unavailable Primary Care Provider Unavailabl e Encounter Details Date Type Department Care Team (Late st Contact Info) Description 05/25/2018 Transcribed Document [facility] [place] [address] [place] [address] ProviderLeyda MD [address] [place] [address] Social History Tobacco Use Types Packs/Day Years [...] Electronically signed by Ernesto Betancourt Conversion Digital Project Coordinator Cerner at 06/22/2022 9:26 AM CDT documented in this encounter Plan of Treatment Not on file documented as of this encounter Visit Diagnoses Not on filedocumented in this encounter
--- OUTSIDE RECORDS SUMMARY | 2024-12-22 11:45 | XMS_ITS | Encounter Summary ---
Author Organization [employer] ([place], [place], [place], [place]) Address [address] [place] [address] Care Team Providers Care Business Manager Name Role Phone Unavailable Primary Care Provider Unavailabl e Encounter Details Date Type Department Care Team (Late st Contact Info) Description 05/25/2018 Transcribed Document [facility] Family Medicine [address] [place] [address] ProviderLeyda MD [address] [place] [address] Social History Tobacco Use Types Packs/Day Years [...] On: 05/25/2018 15:16 EDT by Nely Vitale Bill Board Poster Documentation Patient Disposition, General : Discharge Discharge [...]
--- OUTSIDE RECORDS SUMMARY | 2024-12-22 11:45 | XMS_ITS | Encounter Summary ---
Author Organization [employer] ([place], [place], [place], [place]) Address [address] [place] [address] Care Team Providers Care Senior Market Intelligence Consultant Name Role Phone Unavailable Primary Care Provider Unavailabl e Encounter Details Date Type Department Care Team (Late st Contact Info) Description 05/25/2018 Transcribed Document [facility] [place] Family Medicine [address] [place] [address] ProviderLeyda MD [facility] [place], [place] [address] Social History Tobacco Use Types Packs/Day Years [...] APONTE /Sex: 1975 Female Med Rec #: [id number] Physician: ZINA STEELE MD-GAE Financial #: [id number] Pt. Type: O Room/Bed: [facility] Admit/Disch: 05/25/18 12:46:00 - 05/25/18 16:10:00 Institution: [facility] PACU Case Times Entry 1 In PACU I 05/25/18 15:03:00 Ready for PACU 05/25/18 16:16:00 Discharge Discharge from PACU 05/25/18 16:16:00 Kath Shah PACU Case Times Audit 05/25/18 16:17:31 Beading Sawyer: [id number] Modifier: [id number] <+> 1 Ready for PACU Discharge <+> 1 Discharge from PACU I Finalized By: Nely Vitale Rn Document Signatures Signed By: Nely Vitale Rn 05/25/18 16:17 Electronically signed by Ernesto Betancourt Conversion Hematology Oncology Consultant Cerner at 06/22/2022 9:34 AM CDT documented in this encounter Plan of Treatment Not on file documented as of this encounter Visit Diagnoses Not on filedocumented in this encounter
--- OUTSIDE RECORDS SUMMARY | 2024-12-22 11:45 | XMS_ITS | Encounter Summary ---
Author Organization [employer] ([place], [place], [place], [place]) Address [address] [place] [address] Care Team Providers Care Assistant Director Of Public Works Name Role Phone Unavailable Primary Care Provider Unavailabl e Encounter Details Date Type Department Care Team (Late st Contact Info) Description 05/25/2018 Transcribed Document [facility] [place] [facility] [place] [address] ProviderLeyda MD [address] [place] [address] [id number] Social History Tobacco Use Types Packs/Day Years Used Date Smoking Tobacco: Never Assessed Comments Unknown Sex and Gender Information Value Date Recorded Sex Assigned at Not on file Legal Sex Female 6:21 PM CDT Gender Identity Not on file Sexual Orientation Not on file documented as of this encounter Miscellaneous Notes * Cerner Conversion Note - Leyda Clakr MD - 05/25/2018 3:21 PM CDT [address], [place] [address] Patient Copy Patient Information: Name: MELINDA APONTE Current Date: 05/25/2018 15:21:13 : 1975 Patient Address: [facility] [address] [facility] [address] Patient Attending Physician: ZINA STEELE MD-[facility] Primary Care Provider: Bill Lamar MD Primary [...] getting enough exercise. ??? Smoking. ??? Taking vsfr-kka-hivcwad pain medicines, like aspirin and ibuprofen. SYMPTOMS [...] 11/18/2004 Document Revised: 02/26/2014 Document Reviewed: 01/16/2014 Kompyte. Interactive Patient Education ? 2017 Henable. Colonoscopy, Adult, Care After This sheet gives [...] slower pace than normal. ? Eat soft, bfpf-ej-dhskbj foods. ? Rest often. ??? Take zsjc-iki-pdrlalq or prescription medicines only as told by [...] 10/05/2004 Document Revised: 11/15/2016 Document Reviewed: 05/04/2016 Elseemere Interactive Patient Education ? 2017 Kompyte. Inc. Hiatal Hernia A hiatal hernia occurs [...] symptoms. ??? Medicines. These may include: ? Rlgx-nga-ttbjxui antacids. ? Medicines that make your stomach [...] These may include: ? Fatty foods. ? [place] fruits. ? Other foods and drinks that [...] 05/13/2004 Document Revised: 06/14/2016 Document Reviewed: 02/08/2014 Kompyte. Interactive Patient Education ? 2017 Henable. Gastric Polyps A gastric polyp, also called [...] Follow these instructions at home: ??? Take anzv-lwm-hzmurjz and prescription medicines only as told by [...] 02/07/2013 Document Revised: 07/12/2016 Document Reviewed: 03/07/2016 Kompyte. Interactive Patient Education ? 2017 Kompyte. 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 ? [place] or spicy foods. ? Chocolate and peppermint. General instructions ??? Take wzqg-mni-mulgrco and prescription medicines only as told by [...] Assistance with quitting is available by contacting 0-293-VQTO-NOW. This is a free resource providing counseling, [...] sure to sign up for the My [facility] patient portal, which gives you 27/09 access to your medical information ??? including these discharge instructions ??? using your computer, smartphone, or tablet. Just go to Topicmarks to get started. Questions? Call . [facility] would like to thank you for allowing us to assist you with your healthcare needs. I, MELINDA APONTE, (or representative phlebotomy services) have received the above patient education materials/instructions and have verbalized understanding: Patient Signature _ Date/Time Patient Laborer Cement Gun Placing Signature (if needed) Date/Time Clinician/Hospital Laborer Cement Gun Placing Signature (if needed) Date/Time documented in this encounter Plan of Treatment Not on file documented as of this encounter Visit Diagnoses Not on filedocumented in this encounter
--- OUTSIDE RECORDS SUMMARY | 2024-12-22 11:45 | XMS_ITS | Encounter Summary ---
Author Organization [employer] ([place], [place], [place], [place]) Address [address] [place] [address] Care Team Providers Care Steam Oven Operator Name Role Phone Unavailable Primary Care Provider Unavailabl e Encounter Details Date Type Department Care Team (Late st Contact Info) Description 05/25/2018 Transcribed Document [facility] [place] Medicine [address] [place] [address] ProviderLeyda MD [address] [place] [address] Social History Tobacco Use Types Packs/Day Years [...] Source : Stated Height Entry Format : [place] Height, Feet : 5 ft(Converted to: 152 cm, 60 Inch) Height, Inches : 1 Inch(Converted to: 0 ft 1 Inch, 2.54 cm) Clinical Height : 154.94 cm Weight Source : Standing scale Weight Entry Format : [place] Clinical Dosing Weight : 77.33 kg Weight, Pounds : 170 lb Weight, Ounces : 2 oz Body Surface Area (BSA) : 1.77 m2 Body Mass Index : 32.2 kg/m2 (HI) Nicholls Body Weight : 47 kg KAMALA MOISE [...] Obtained From : Patient Primary Language : Puerto Rican Preferred Communication Mode : Verbal Communication Barrier [...] Scale Risk Level : 0-24 Low Risk [place] Fall Interventions : Adequate lighting, Assistive devices [...] 13:11 EDT Pain Scale Intensity : 0 KAAMLA MOISE RN - 05/25/2018 13:11 EDT Image 4 - Images currently included in the form version of this document have not been included in the text rendition version of the form. documented in this encounter Plan of Treatment Not on file documented as of this encounter Visit Diagnoses Not on filedocumented in this encounter
--- OUTSIDE RECORDS SUMMARY | 2024-12-22 11:45 | XMS_ITS | Clinical Summary ---
Author Organization [employer] ([place], [place], [place], [place]) Address [address] [place] [address] Care Team Providers Care Oxygen Equipment Preparer Name Role Phone Unavailable Primary Care Provider Unavailabl e Allergies Active Allergy Reactions Criticality Noted Date Comments Lamotrigine Itching 09/16/2023 [place] 09/16/2023 Medications amitriptyline (ELAVIL) 25 MG tablet [...] Date Tyrone rded Speak language other than Nepali at home Not on file 03/25/2023 Want [...] Shingles Vaccine (Zoster) (1 of 2) 2023 Breast Cancer Screening 04/13/2024 04/13/19 23, 04/13/2022, 04/13/2022 Tobacco Cessation Counseling and Screening (12+) 09/15/2024 09/16/2023 COVID-19 VACCINE ( - 2024-2 6 season) 2024 01/23/2023, 12/12/2021, 07/17/2021, Additional history exists Influenza Vaccine (#1) 2024 01/23/2023, 2021 Insurance BLUE CROSS/BLUE SHIELD Advance Directives For more information, please contact: [phone] * Full Code (Latest Code Status on File) Date Activated Date Inactivated Comments 09/16/2023 11:46 AM 09/17/2023 4:27 AM
--- OUTSIDE RECORDS SUMMARY | 2024-12-22 11:45 | XMS_ITS | Encounter Summary ---
Author Organization [employer] ([place], [place], [place], [place]) Address [address] [place] [address] Care Team Providers Care Histology Supervisor Name Role Phone Unavailable Primary Care Provider Unavailabl e Encounter Details Date Type Department Care Team (Late st Contact Info) Description 09/29/2018 Transcribed Document [facility] [place] Family Medicine [address] [place] [address] ProviderLeyda MD [address] [place] [id number] Social History Tobacco Use Types Packs/Day Years [...]
--- OUTSIDE RECORDS SUMMARY | 2024-12-22 11:45 | XMS_ITS | Encounter Summary ---
Author Organization [employer] ([place], [place], [place], [place]) Address [address] [place] [address] Care Team Providers Care Legal Services Manager Name Role Phone Unavailable Primary Care Provider Unavailabl e Encounter Details Date Type Department Care Team (Late st Contact Info) Description 05/25/2018 Transcribed Document [facility] [place] [facility] [address] ProviderLeyda MD [address] [place] [id number] Social History Tobacco Use Types Packs/Day Years [...] Clark MD - 05/25/2018 3:53 PM CDT [address], [place] [address] Patient Copy Patient Information: Name: MELINDA APONTE Current Date: 05/25/2018 15:53:57 : 1975 Patient Address: [facility] [address] [facility] [address] Patient Attending Physician: ZINA STEELE MD-[facility] Primary Care Provider: Bill Lamar MD Primary Care Provider Discharge Diagnosis: 1:Epigastric pain Weight on Admission: 170 lb, 2 oz Comment: Follow-up Instructions: With: Address: When: [place] [address] Business (1) Within As needed Comments: [...] getting enough exercise. ??? Smoking. ??? Taking fdur-ipp-yvfanzy pain medicines, like aspirin and ibuprofen. SYMPTOMS [...] 11/18/2004 Document Revised: 02/26/2014 Document Reviewed: 01/16/2014 Holaira Interactive Patient Education ? 2017 YesGraph. Colonoscopy, Adult, Care After This sheet gives [...] slower pace than normal. ? Eat soft, mtek-ng-bypmpr foods. ? Rest often. ??? Take ypea-ejw-ltzakqa or prescription medicines only as told by [...] 10/05/2004 Document Revised: 11/15/2016 Document Reviewed: 05/04/2016 Holaira Interactive Patient Education ? 2017 Holaira Inc. Hiatal Hernia A hiatal hernia occurs [...] symptoms. ??? Medicines. These may include: ? Lkef-fdj-olmluid antacids. ? Medicines that make your stomach [...] These may include: ? Fatty foods. ? [place] fruits. ? Other foods and drinks that [...] 05/13/2004 Document Revised: 06/14/2016 Document Reviewed: 02/08/2014 Holaira Interactive Patient Education ? 2017 Holaira Inc. Gastric Polyps A gastric polyp, also [...] Follow these instructions at home: ??? Take vong-afh-oytzdij and prescription medicines only as told by [...] 03/07/2016 Elsevier Interactive Patient Education ? 2017 ElseLookUP 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 ? [place] or spicy foods. ? Chocolate and peppermint. General instructions ??? Take ncll-dwk-okmbrfg and prescription medicines only as told by [...] broken bone while taking this medicine intermediate frame tender or more than once per day. What [...] by infection with Helicobacter pylori (H. pylori). Ncyz-djc-uusbznv (OTC) omeprazole is used to help control [...] medicine exactly as directed. Use Prilosec OTC (yamu-xmo-oqnokbu) exactly as directed on the label, or [...] may report side effects to FDA at 0-328-NTU-7460. What other drugs will affect omeprazole? Sometimes it is not safe to use certain medications at the same time. Some drugs can affect your blood levels of other drugs you take, which may increase side effects or make the medications less effective. Tell your doctor about all your current medicines. Many drugs can affect omeprazole, especially: ? clopidogrel; ?? methotrexate; ?? Portal's wort; or ?? an antibiotic--amoxicillin, clarithromycin, rifampin. This list is not complete and many other drugs may affect omeprazole. This includes prescription and izjd-lhv-hsbepnb medicines, vitamins, and herbal products. Not all [...] to ensure that the information provided by Honeit, Inc.. ('Multum') is accurate, up-to-date, and complete, but no guarantee is made to that effect. Drug information contained herein may be time sensitive. RoyaltyShare information has been compiled for use by healthcare practitioners and consumers in the [place] and therefore RoyaltyShare does not warrant that uses outside of the [place] are appropriate, unless specifically indicated otherwise. [employer] drug information does not endorse drugs, diagnose patients or recommend therapy. [place] [employer] drug information is an informational resource designed [...] effective or appropriate for any given patient. [facility] does not assume any responsibility for any aspect of healthcare administered with the aid of information RoyaltyShare provides. The information contained herein is not intended to cover all possible uses, directions, precautions, warnings, drug interactions, allergic reactions, or adverse effects. If you have questions about the drugs you are taking, check with your doctor, nurse or pharmacist. Copyright 1792-1669 Honeit, Inc.. Version: 19.01. Revision Date: 08/29/2017. hyoscyamine (genaro [...] may report side effects to FDA at 9-670-CJS-1881. What other drugs will affect hyoscyamine? Tell [...] drugs may affect hyoscyamine, including prescription and fjtc-pgk-tewjzbp medicines, vitamins, and herbal products. Not all [...] to ensure that the information provided by Honeit, Inc.. ('Multum') is accurate, up-to-date, and complete, but no guarantee is made to that effect. Drug information contained herein may be time sensitive. RoyaltyShare information has been compiled for use by healthcare practitioners and consumers in the [place] and therefore RoyaltyShare does not warrant that uses outside of the [place] are appropriate, unless specifically indicated otherwise. [employer] drug information does not endorse drugs, diagnose patients or recommend therapy. [place] Blues drug information is an informational resource designed [...] effective or appropriate for any given patient. [employer]Share does not assume any responsibility for any aspect of healthcare administered with the aid of information RoyaltyShare provides. The information contained herein is not intended to cover all possible uses, directions, precautions, warnings, drug interactions, allergic reactions, or adverse effects. If you have questions about the drugs you are taking, check with your doctor, nurse or pharmacist. Copyright 5014-7596 Honeit, Inc.. Version: 7.01. Revision Date: 01/24/2018. linaclotide (LACEY [...] may report side effects to FDA at 1-719-JVL-2252. What other drugs will affect linaclotide? Other drugs may interact with linaclotide, including prescription, arvw-bfe-csorhfa, vitamin, and herbal products. Tell your doctor [...] to ensure that the information provided by [employer]it, Inc.. ('Multum') is accurate, up-to-date, and complete, but no guarantee is made to that effect. Drug information contained herein may be time sensitive. 6Sensetum information has been compiled for use by healthcare practitioners and consumers in the [place] and therefore Xylan Corporationum does not warrant that uses outside of the [place] are appropriate, unless specifically indicated otherwise. RoyaltyShare's drug information does not endorse drugs, diagnose patients or recommend therapy. RoyaltyShare's drug information is an informational resource designed [...] effective or appropriate for any given patient. [facility] does not assume any responsibility for any aspect of healthcare administered with the aid of information [facility] provides. The information contained herein is not intended to cover all possible uses, directions, precautions, warnings, drug interactions, allergic reactions, or adverse effects. If you have questions about the drugs you are taking, check with your doctor, nurse or pharmacist. Copyright 2812-8180 Honeit, Inc.. Version: 4.02. Revision Date: 11/23/2016. CIGARETTE SMOKING: The facts are clear, cigarette smoking will shorten your life. Smoking can cause many illnesses along the way. As a healthcare provider, we recommend that you stop smoking. Assistance with quitting is available by contacting 4-549-DJOOChina Communications Services CorporationNOW. This is a free resource providing counseling, [...] Be sure to sign up for the UnL[employer]World patient portal, which gives you 27/09 access to your medical information ??? including these discharge instructions ??? using your computer, smartphone, or tablet. Just go to BioTrove to get started. Questions? Call . [facility] would like to thank you for allowing us to assist you with your healthcare needs. HECT[employer] [place] SHANNON CRAFT, (or sales representative business courses) have received the above patient education materials/instructions and have verbalized understanding: Patient Signature _ Date/Time Patient Natural History Collections Curator Signature (if needed) Date/Time Clinician/Hospital Natural History Collections Curator Signature (if needed) Date/Time documented in this encounter Plan of Treatment Not on file documented as of this encounter Visit Diagnoses Not on filedocumented in this encounter
--- OUTSIDE RECORDS SUMMARY | 2024-12-22 11:45 | XMS_ITS | Encounter Summary ---
Author Organization [employer] ([place], [place], [place], [place]) Address [address] [place] [address] Care Team Providers Care Consulting Senior Practice Director Name Role Phone Unavailable Primary Care Provider Unavailabl e Encounter Details Date Type Department Care Team (Late st Contact Info) Description 09/29/2018 Transcribed Document [facility] [place] [address] [place] [address] ProviderLeyda MD [address] [place] [address] Social History Tobacco Use Types Packs/Day Years [...] Patient Care Bedside - 09/29/2018 16:17 EDT Electronically signed by Ernesto Betancourt Conversion Statistical Financial Analyst Cerner at 06/27/2022 1:10 PM CDT documented in this encounter Plan of Treatment Not on file documented as of this encounter Visit Diagnoses Not on filedocumented in this encounter
[2024-12-22 12:50] LABS: Chloride 102 mmol/L (98-107)
[2024-12-22 12:51] LABS: Potassium 4.1 mmoL/L (3.5-5.1); Sodium 136 mmol/L (136-145)
[2024-12-22 12:53] LABS: Blood Urea Nitrogen 9 mg/dl (7-17); Creatinine,Serum 1.00 mg/dl (0.52-1.04); Estimated Glomerular Filt Rate 58 ml/min (>60); GFR (African American) 71 ML/MIN (>60)
[2024-12-22 12:54] LABS: Anion Gap 12.1 mEq/L (5-15); Calcium 9.0 mg/dl (8.4-10.2); Carbon Dioxide 26 mmol/L (22.0-30.0); Glucose 101 mg/dl (74-100)
== END 2024-12-22 23:59 | disposition home or self-care (01) ==
LOC: LAB 11:41
PROVIDERS: PCP Internal Medicine; Visit Provider Nurse Practitioner Family
DX: I50.20 Unspecified systolic (congestive) heart failure (principal)
CPT/HCPCS: 36415; 80048

== ENCOUNTER 2025-01-11 16:38 | Outpatient (CLI) | payer BC, SELFPAY ==
--- OUTSIDE RECORDS SUMMARY | 2024-11-30 14:00 | XMS_ITS | Encounter Summary ---
Author Organization Healthcare Address [address] [place] [address] Care Team Providers Care Deaf Teacher Name Role Phone Bill Lamar MD Primary Care Provider [phone] Reason for Visit * Reason Comments OP Infusion * Episode Based Medications (Routine) - Closed Specialty Diagnoses / Procedures Referred By Contac t Referred To Contact Diagnoses Acute on chronic systolic heart failure Iron deficiency anemia, unspecified iron deficiency anemia type Procedures CO IRON SUCROSE INJECTION Mitul Garza MD [address] [place] [address] Phone: tel: fax: Mitul Garza MD [address] [place] [address] Phone: tel: fax: Referral ID Status Reason Start Date Expiration Date Visits Re quested Visits Authorized [id number] Closed 11/14/2024 06/28/2026 1 8 Encounter Details Date Type Department Care Team (Latest Contact Info) Description 11/30/2024 3:00 PM EDT - 11/30/2024 11:59 PM EDT Hospital Encounter P[facility] G Infusion [address] [facility] Room [address] [place] [phone] Iron deficiency anemia, unspecified iron deficiency anemia type (Primary Dx); Acute on chronic systolic heart failure (CMS/HCC) Discharge Disposition: Home or Self Care Social [...] drink first t cyndie in the morning (EYE-NC MACHINIST) to steady your nerves or to get [...] Sign Reading Time Taken Comments Blood Pressure 111/70 11/30/2024 5:31 PM EDT Pulse 74 11/30/2024 5:31 PM EDT Temperature 36.4 C (97.5 F) 11/30/2024 3:24 PM EDT Respiratory Rate 16 11/30/2024 3:21 PM EDT Oxygen Saturation - - Inhaled Oxygen Concentration - - Weight 81.4 kg (179 lb 7.3 oz) 11/30/2024 3:21 P M EDT Height 154.9 cm (5' 1 ) 11/30/2024 3:21 PM EDT Body Mass Index 33.91 11/30/2024 3:21 PM EDT documented in this encounter Medications at Time of Discharge acetaminophen (Tylenol) 500 MG tablet Take 2 tablets by mouth every 6 hours as needed. azelastine (Astelin) 0.1 % nasal spray ADMINISTER 2 SPRAYS INTO EACH NOSTRIL EVERY 12 HOURS 06/06/2024 carvedilol (Coreg) 3.125 MG tablet Take 1 tablet by mouth 2 times a day. clobetasol (Temovate) 0.05 % cream APPLY TOPICALLY TO THE AFFECTED AREA AT BEDTIME EVERY NIGHT 07/11/2024 colchicine (Colcrys) 0.6 MG tablet colestipol (Colestid) 1 g tablet Take 1 tablet by mouth twice a day. 08/21/2024 eplerenone (Inspra) 25 MG tablet Take 1 tablet by mouth daily. 30 tablet 5 10/16/2024 estradiol (Estrace) 2 MG tablet 09/04/2024 estradiol (Vagifem) 10 MCG tablet vaginal tablet estradiol (Vivelle-DOT) 0.025 MG/24HR estradiol 2MG DAILY famotidine (Pepcid) 40 MG tablet famotidine 40 mg fluticasone (Flonase) 50 MCG/ACT nasal spray shake liquid and use 2 sprays in each nostril daily 06/06/2024 glucosamine-sean droitin 500-400 MG tablet Take 1 tablet by mouth 3 times a day. hyoscyamine (Levsin) 0.125 MG SL tablet 08/01/2024 Melatonin 12 MG tablet Take 24 mg by mouth. Motegrity 2 MG tablet Take 1 tablet (2 mg) by mouth 1 (one) time each day. 11/09/2023 nitroglycerin (Sohail-Bid) 2 % ointmentIndicati ons:Raynaud's disease without gangrene,Limited systemic sclerosis (CMS/HCC) Place 0.5 inches on the skin 2 times a day as needed (Raynauds). 30 g 5 10/26/2024 nortriptyline (Pamelor) 50 MG capsule Take 1 [...] by mouth 1 time each day. 08/22/2024 dapagliflozin (Farxiga) 10 MG tablet Take 1 tablet by mouth daily. 30 tablet 5 11/28/2024 5 hydroxychloroqui ne (Plaquenil) 200 MG tablet LORazepam (Ativan) 1 MG tablet Take 1 tablet by mouth daily. 5 Magnesium 100 MG capsule magnesium 500MG DAILY 5 documented as of this encounter Miscellaneous Notes * Amna Sanchez RN - 11/30/2024 3:55 PM EDT Images from the original note were not included. [id number] Iron Sucrose Injection WHY is this medicine prescribed? Iron sucrose injection is used treat iron-deficiency anemia (a lower than normal number of red blood cells due to too little iron) in people with chronic kidney disease (damage to the kidneys which may worsen over time and may cause the kidneys to stop working). Iron sucrose injection is in a classof medications called iron replacement products. It works by replenishing iron stores so that the body can make more red blood cells. HOW should this medicine be used? Iron sucrose injection comes as a solution (liquid) to inject intravenously (into a vein) by a doctor or nurse in a medical office or hospital outpatient clinic. It is usually injected over 2 to 5 minutes or may be mixed with another fluid and infused slowly over 15 minutes to 4 hours depending on your dose of medication. Your doctor will determine how often you receive iron sucrose injection andyour total number of doses based on your condition and how well you respond to the medication. If your iron levels become low after you finish your treatment, your doctor may prescribe this medication again. Iron sucrose injection may cause severe or life-threatening reactions while you receive the medication. Your doctor will watch you carefully while you receive each dose of iron sucrose injection and for at least 30 minutes afterwards. Tell your doctor if you experience any of the following symptomsduring or after your injection: shortness of breath; difficulty swallowing or breathing; hoarseness; swelling of the face, throat, tongue, lips, or eyes; hives; itching; rash; fainting; lightheadedness; dizziness; cold, clammy skin; rapid, weak pulse; slow heartbeat; headache; nausea; vomiting; joint or muscle pain; stomach pain; pain, burning, numbness, or tingling in the hands or feet; swellingof the hands, feet, ankles, or lower legs; loss of consciousness; or seizures. If you experience a s evere reaction, your doctor will slow or stop your infusion immediately and provide emergency medical treatment. Are there OTHER USES for this medicine? This medication may be prescribed for other uses; ask your doctor or pharmacist for more information. What SPECIAL PRECAUTIONS should I follow? Before receiving iron sucrose injection, ? tell your doctor and pharmacist if you are allergic to iron sucrose injection; any other iron injection such as ferumoxytol (Feraheme), iron dextran (Dexferrum, Infed, Proferdex), or sodium ferric gluconate (Ferrlecit); any other medications; or any of the ingredients in iron sucrose injection. Ask your pharmacist for a list of the ingredients. ? tell your doctor and pharmacist what other prescription and nonprescription medications, vitamins, nutritional supplements, and herbal products you are taking or plan to take while receiving iron sucrose injection. Your doctor may need to change the doses of your medications or monitor you carefully for side effects. ? tell your doctor if you have or have ever had any medical condition. ? tell your doctor if you are , plan to become , or are breast- feeding. If you become while receiving iron sucrose injection treatment, call your doctor. What SPECIAL DIETARY instructions should I follow? Unless your doctor tells you otherwise, continue your normal diet. What should I do IF I FORGET to take a dose? If you miss an appointment to receive iron sucrose injection, call your doctor as soon as possible. What SIDE EFFECTS can this medicine cause? Some side effects can be serious. If you experience the following symptom or those listed in the HOW section, call your doctor immediately or get emergency medical treatment. ? chest pain If you experience a serious side effect, you or your doctor may send a report to the Food and Drug Administration's (FDA) MedWatch Adverse Event Reporting program online (https://www.fda.gov/Safety/MedWatch) or by phone ( ). What should I do in case of OVERDOSE? In case of overdose, call the poison control helpline at . Information is also available online at https://www.poisonhelp.org/help. If the victim has collapsed, had a seizure, has trouble breathing, or can't be awakened, immediately call emergency services at 911. What OTHER INFORMATION should I know? Keep all appointments with your doctor and the laboratory. Your doctor will check your blood pressure and order certain lab tests to check your body's response to iron sucrose injection. Keep a written list of all of the prescription and nonprescription (ciay-nhf-pyewdnq) medicines, vitamins, minerals, and dietary supplements you are taking. Bring this list with you each time you visit a doctor or if you are admitted to the hospital. You should carry the list with you in case of melody rgencies. Brand Name(s): ? Venofer?? Iron Saccharate, Iron Sucron Complex This report on medications is for your information only, and is not considered individual patient advice. Because of the changing nature of drug information, please consult your physician or pharmacist about specific clinical use. The [employer] represents that the information provided hereunder was formulated with a reasonable standard of care, and in conformity with professional standards in the field. The [employer] makes no representations or warranties, express or implied, including, but not limited to, any implied warranty of merchantability and/or fitness for a particular purpose, with respect to such information and specifically disclaims all such warranties. Users are advised that decisions regarding drug therapy are complex medical decisions requiring the independent, informed decision of an appropriate health care professionals, and the information is provided for informational purposes only. The entire monograph for a drug should be reviewed for a thorough understanding of the drug's actions, uses and side effects. The [employer] does not endorse or recommend the use of any drug.The information is not a substitute for medical care. [employer]?? Patient Medication Information?. ?? Copyright, 2023. The [employer]??, [address], [place], [place]. All Rights Reserved. Duplication for commercial use must be authorized by [facility]. Selected Revisions: June 19, 2013. AHFS?? Patient Medication Information?. ?? Copyright, 2024 documented in this encounter Plan of Treatment Upcoming Encounters Date Type Department Care Team (Late st Contact Info) Description 02/19/2025 9:00 AM EST Ancillary Procedure [facility] Medicine [facility] [address] [place] [address] 02/19/2025 10:00 AM EST Office Visit [facility] [address] [phone] Mariam Urban MD [address] [place] [address] 04/03/2025 9:00 AM EST Appointment [facility] Pulmonary Function Testing [address] [place] [address] 04/25/2025 11:20 AM EST Office Visit [facility] [address] [facility] [address], [address] [place] [address] Sara Johnson, STRATEGIC SOURCING MANAGER [address] [place] [address] 04/26/2025 11:10 AM EST Office Visit [facility] Medicine [facility] [address] [address] 05/16/2025 2:00 PM EDT Office Visit [facility] Medicine [facility] [address], [address] [place] [phone] Marli Godoy MD [address] [place] [address] documented as of this encounter Goals Goal Patient Goal Type Associated Problems Recent Progress Patient-Stated? Author Patient will verbalize understanding of orthotic wear , care and precautions. Occupational Therapy Pat Oneal documented as of this encounter Procedures Procedure Name Priority Date/Time Associated Diagnosis Comments IRON & TOTAL IRON BINDING CAPACITY, PLASMA (INCLUDES TRANSFERRIN) Routine 11/30/2024 3:44 PM EDT Acute on chronic systolic heart failure (CMS/HCC) Iron deficiency anemia, unspecified iron deficiency anemia type CBC WITH AUTO DIFFERENTIAL Routine 11/30/2024 3:44 PM EDT Acute on chronic systolic heart failure (CMS/HCC) Iron deficiency anemia, unspecified iron deficiency anemia type FERRITIN, SERUM Routine 11/30/2024 3:44 PM EDT Acute on chronic systolic heart failure (CMS/HCC) Iron deficiency anemia, unspecified iron deficiency anemia type documented in this encounter Results * (ABNORMAL) CBC and differential (11/30/2024 3:44 PM EDT) WBC Count 6.73 3.70 - 10.30 10*3/uL LAB HEMATOLOGY METHOD 11/30/2024 4:10 PM EDT [facility] RBC Count 3.69(L) 3.90 - 5.20 10*6/uL LAB HEMATOLOGY METHOD 11/30/2024 4:10 PM EDT [facility] HGB 11.3 11.2 - 15.7 g/dL LAB HEMATOLOGY METHOD 11/30/2024 4:10 PM EDT [facility] HCT 34.8 34.0 - 45.0 % LAB HEMATOLOGY METHOD 11/30/2024 4:10 PM EDT [facility] Platelet Count 257 155 - 369 10*3/uL LAB HEMATOLOGY METHOD 11/30/2024 4:10 PM EDT [facility] MCV 94 79 - 98 fL LAB HEMATOLOGY METHOD 11/30/2024 4:10 PM EDT [facility] MCH 30.6 26.0 - 32.0 pg LAB HEMATOLOGY METHOD 11/30/2024 4:10 PM EDT [facility] MCHC 32.5 30.7 - 35.5 g/dL LAB HEMATOLOGY METHOD 11/30/2024 4:10 PM EDT [facility] RDW 13.3 11.5 - 14.5 % LAB HEMATOLOGY METHOD 11/30/2024 4:10 PM EDT [facility] MPV 10.4 8.8 - 12.5 fL LAB HEMATOLOGY METHOD 11/30/2024 4:10 PM EDT [facility] nRBC 0.0 <=0.0 per 100 WBCs LAB HEMATOLOGY METHOD 11/30/2024 4:10 PM EDT [facility] Differential Type Automated LAB HEMATOLOGY METHOD 11/30/2024 4:10 PM EDT [facility] Neutrophils % 45 % LAB HEMATOLOGY METHOD 11/30/2024 4:10 PM EDT [facility] Lymphocytes % 44 % LAB HEMATOLOGY METHOD 11/30/2024 4:10 PM EDT [facility] Monocytes % 6 % LAB HEMATOLOGY METHOD 11/30/2024 4:10 PM EDT [facility] Eosinophils % 4 % LAB HEMATOLOGY METHOD 11/30/2024 4:10 PM EDT [facility] Basophils % 1 % LAB HEMATOLOGY METHOD 11/30/2024 4:10 PM EDT [facility] Immature Granulocytes % 0 % LAB HEMATOLOGY METHOD 11/30/2024 4:10 PM EDT [facility] Neutrophils Absolute 2.98 1.60 - 6.10 10*3/uL LAB HEMATOLOGY METHOD 11/30/2024 4:10 PM EDT [facility] Lymphocytes Absolute 2.99 1.20 - 3.90 10*3/uL LAB HEMATOLOGY METHOD 11/30/2024 4:10 PM EDT [facility] Monocytes Absolute 0.42 0.30 - 0.90 10*3/uL LAB HEMATOLOGY METHOD 11/30/2024 4:10 PM EDT [facility] Eosinophils Absolute 0.25 0.00 - 0.50 10*3/uL LAB HEMATOLOGY METHOD 11/30/2024 4:10 PM EDT [facility] Basophils Absolute 0.07 0.00 - 0.10 10*3/uL LAB HEMATOLOGY METHOD 11/30/2024 4:10 PM EDT [facility] Immature Granulocytes Absolute 0.02 0.00 - 0.06 10*3/uL LAB HEMATOLOGY METHOD 11/30/2024 4:10 PM EDT [facility] Blood Venous blood specimen / Unknown Venipuncture / Unknown 11/30/2024 3:44 PM EDT 11/30/2024 3:56 PM EDT Narrative [facility] - 11/30/2024 4:10 PM EDT Therapeutic decision making should be based on absolute values, rather than percentages. Mitul Garza MD LAB BLOOD ORDERABLES Final Res ult Performing Organization Address City/[facility]/ZIP Co de Phone Number [facility] [address] [place] [address] * Iron and TIBC (11/30/2024 3:44 PM EDT) Iron, Plasma 89 30 - 160 ug/dL 11/30/2024 4:26 PM EDT [facility] Transferrin, Plasma 308 200 - 360 mg/dL 11/30/2024 4:26 PM EDT [facility] Total Iron Binding Capacity, Plasma 385 240 - 450 ug/mL 11/30/2024 4:26 PM EDT [facility] Transferrin Saturation 23 14 - 50 % 11/30/2024 4:26 PM EDT [facility] Blood Venous blood specimen / Unknown Venipuncture / Unknown 11/30/2024 3:44 PM EDT 11/30/2024 3:52 PM EDT Mitul Garza MD LAB BLOOD ORDERABLES Final Res ult [facility] [address] [place] [address] * Ferritin (11/30/2024 3:44 PM EDT) Ferritin, Serum 34 13 - 150 ng/mL 11/30/2024 4:28 PM EDT [facility] Blood Venous blood specimen / Unknown Venipuncture / Unknown 11/30/2024 3:44 PM EDT 11/30/2024 3:52 PM EDT us Mitul Garza MD LAB BLOOD ORDERABLES Final Res ult [facility] [address] [place] [address] documented in this encounter Visit Diagnoses Diagnosis Iron deficiency anemia, unspecified iron deficiency anemia type- Primary Acute on chronic systolic heart failure documented in this encounter Administered Medications Inactive Administered Medications - up to 3 most recent administrations Medication Order MAR Action Action Date Dose Rate Site acetaminophen (Tylenol) tablet 650 mg 650 mg, Oral, Once, 1 dose, On Tue11/30/24 at 1615, RoutineIndications:Acute on chronic systolic heart failure,Iron deficiency anemia, unspecified iron deficiency anemia type Given 11/30/2024 3:28 PM EDT 650 mg diphenhydrAMINE (Benadryl) tablet 25 mg 25 mg, Oral, Once, 1 dose, On Tue11/30/24 at 1615, RoutineIndications:Acute on chronic systolic heart failure,Iron deficiency anemia, unspecified iron deficiency anemia type Given 11/30/2024 3:28 PM EDT 25 mg iron sucrose (Venofer) 300 mg in sodium chloride 0.9 % 250 mL IVPB 300 mg, Intravenous, at 166.7 mL/hr, Administer over 90 Minutes, Once, 300 mg over 1.5 hr; 400 mg over 2.5 hr, On Tue11/30/24 at 1545, For 1 dose, NS 250 mL; Vial size 100 mg/5 mL; Maximum cumulative dose of 1000 mg per treatment intervalIndications:Acute on chronic systolic heart failure,Iron deficiency anemia, unspecified iron deficiency anemia type New Bag 11/30/2024 3:59 PM EDT 300 mg 166.7 mL /hr documented in this encounter Additional Health Concerns Assessment Noted Time PHQ-9 Depression Total Score: 0 09/28/19 3:19 PM EDT A fall risk assessment has been complete d for the patient 11/30/2024 3:20 PM EDT A Body Mass Index follow-up plan has been documented for the patient 11/30/2024 4:03 PM EDT documented as of this encounter Care Teams Deaf Teacher Relationship Specialty Start Date End Date Bill Lamar MD [address] [place] [address] PCP - General 04/13/22 documented as of this encounter
--- OUTSIDE RECORDS SUMMARY | 2024-12-08 13:25 | XMS_ITS | Encounter Summary ---
Author Organization Healthcare Address [address] [place] [address] Care Team Providers Care Business Functional Analyst Name Role Phone Bill Lamar MD Primary Care Provider [phone] Reason for Visit * Episode Based Medications (Routine) - Closed Specialty Diagnoses / Procedures Referred By Contprabha t Referred To Contact Diagnoses Acute on chronic systolic heart failure Iron deficiency anemia, unspecified iron deficiency anemia type Procedures [place] IRON SUCROSE INJECTION Mitul Garza MD [address] [place] [address] Phone: tel: fax: Mitul Garza MD [address] [place] [address] Phone: tel: fax: Referral ID Status Reason Start Date Expiration Date Visits Re quested Visits Authorized [id number] Closed 11/14/2024 06/28/2026 1 8 Encounter Details Date Type Department Care Team (Latest Contact Info) Description 12/08/2024 2:25 PM EDT - 12/08/2024 11:59 PM EDT Hospital Encounter [facility] [address] [place] [address] Iron deficiency anemia, unspecified iron deficiency anemia type (Primary Dx); Acute on chronic systolic heart failure Discharge Disposition: Home or Self Care Social [...] drink first t cyndie in the morning (EYE-DIRECTOR OF CONTENT MARKETING) to steady your nerves or to get [...] Sign Reading Time Taken Comments Blood Pressure 107/74 12/08/2024 2:27 PM EDT Pulse 85 12/08/2024 2:27 PM EDT Temperature 36.3 C (97.3 F) 12/08/2024 2:27 PM EDT Respiratory Rate 16 12/08/2024 2:27 PM EDT Oxygen Saturation 98% 12/08/2024 2:27 PM EDT Inhaled Oxygen Concentration - - Weight 81.3 kg (179 lb 3.7 oz) 12/08/2024 2:27 P M EDT Height 154.9 cm (5' 1 ) 12/08/2024 2:27 PM EDT Body Mass Index 33.87 12/08/2024 2:27 PM EDT documented in this encounter Medications [...] 5 hydroxychloroqui ne (Plaquenil) 200 MG tablet 5 LORazepam (Ativan) 1 MG tablet Take 1 tablet by mouth daily. 5 Magnesium 100 MG capsule magnesium 500MG DAILY 5 documented as of this encounter Plan of Treatment Upcoming Encounters Date Type Department Care Team (Late st Contact Info) Description 02/19/2025 9:00 AM EST Ancillary Procedure [facility] [address] [place] [address] 02/19/2025 10:00 AM EST Office Visit [place] [address] [address] Mariam Urban MD [address] [place] [address] 04/03/2025 9:00 AM EST Appointment [facility] Pulmonary Function Testing [address] [place] [address] 04/25/2025 11:20 AM EST Office Visit [facility] [place] [address], [address] [place] [address] Sara Johnson, PORCELAIN TURNER [address] [place] [address] 04/26/2025 11:10 AM EST Office Visit [facility] [address], [address] [place] [address] 05/16/2025 2:00 PM EDT Office Visit [facility] [address], [address] [place] [address] Marli Godoy MD [address] [place] [address] documented as of this encounter Goals Goal Patient Goal Type Associated Problems Recent Progress Patient-Stated? Author Patient will verbalize understanding of orthotic wear , care and precautions. Occupational Therapy No Pat Bueno documented as of this encounter Visit Diagnoses Diagnosis Iron deficiency anemia, unspecified iron deficiency anemia type- Primary Acute on chronic systolic heart failure documented in this encounter Administered Medications Inactive Administered Medications - up to 3 most recent administrations Medication Order MAR Action Action Date Dose Rate Site diphenhydrAMINE (Benadryl) tablet 25 mg 25 mg, Oral, Once, 1 dose, On 12/08/24 at 1500, RoutineIndications:Acute on chronic systolic heart failure,Iron deficiency anemia, unspecified iron deficiency anemia type Given 12/08/2024 2:35 PM EDT 25 mg iron sucrose (Venofer) 300 mg in sodium chloride 0.9 % 250 mL IVPB 300 mg, Intravenous, at 166.7 mL/hr, Administer over 90 Minutes, Once, 300 mg over 1.5 hr; 400 mg over 2.5 hr, On 12/08/24 at 1500, For 1 dose, NS 250 mL; Vial size 100 mg/5 mL; Maximum cumulative dose of 1000 mg per treatment intervalIndications:Acute on chronic systolic heart failure,Iron deficiency anemia, unspecified iron deficiency anemia type New Bag 12/08/2024 2:56 PM EDT 300 mg 166.7 mL /hr documented in this encounter Additional Health Concerns Assessment Noted Time PHQ-9 Depression Total Score: 0 09/28/19 25 3:19 PM EDT A fall risk assessment has been complete d for the patient 12/08/2024 2:26 PM EDT A Body Mass Index follow-up plan has been documented for the patient 11/30/2024 4:03 PM EDT documented as of this encounter Care Teams Business Functional Analyst Relationship Specialty Start Date End Date Bill Lamar MD [address] [facility] [place] [address] PCP - General 04/13/22 documented as of this encounter
--- OUTSIDE RECORDS SUMMARY | 2024-12-15 14:00 | XMS_ITS | Encounter Summary ---
Author Organization [facility] Address [address] [place] [address] Care Team Providers Care Composition Weatherboard Installer Name Role Phone Bill Lamar MD Primary Care Provider [phone] Reason for Visit * Episode Based Medications (Routine) - Closed Specialty Diagnoses / Procedures Referred By Contprabha t Referred To Contact Diagnoses Acute on chronic systolic heart failure Iron deficiency anemia, unspecified iron deficiency anemia type Procedures AL IRON SUCROSE INJECTION Mitul Garza MD [address] [place] [address] Phone: tel: fax: Mitul Garza MD [address] [place] [address] Phone: tel: fax: Referral ID Status Reason Start Date Expiration Date Visits Re quested Visits Authorized [id number] Closed 11/14/2024 06/28/2026 1 8 Encounter Details Date Type Department Care Team (Latest Contact Info) Description 12/15/2024 3:00 PM EDT - 12/15/2024 11:59 PM EDT Hospital En[facility] [address] [place] [phone] Iron deficiency anemia, unspecified iron deficiency anemia [...] drink first t cyndie in the morning (EYE-CODING VALIDATOR) to steady your nerves or to get [...] Sign Reading Time Taken Comments Blood Pressure 91/64 12/15/2024 5:30 PM EDT Pulse 77 12/15/2024 5:30 PM EDT Temperature 36.5 C (97.7 F) 12/15/2024 5:30 PM EDT Respiratory Rate 18 12/15/2024 5:30 PM EDT Oxygen Saturation 99% 12/15/2024 3:03 PM EDT Inhaled Oxygen Concentration - - Weight 81.7 kg (180 lb 1.9 oz) 12/15/2024 3:03 P M EDT Height 154.9 cm (5' 1 ) 12/15/2024 3:03 PM EDT Body Mass Index 34.03 12/15/2024 3:03 PM EDT documented in this encounter Medications [...] Description 02/19/2025 9:00 AM EST Ancillary Procedure [facility] [address], [address] [place] [address] 02/19/2025 10:00 AM EST Office Visit [place] [address] [address] Mariam Urban MD [address] [place] [address] 04/03/2025 9:00 AM EST Appointment [facility] Pulmonary Function Testing [address] [place] [address] 04/25/2025 11:20 AM EST Office Visit [facility] [place] [facility] [address], [address] [place] [address] Sara Johnson APRN [address] [place] [address] 04/26/2025 11:10 AM EST Office Visit [facility] Medicine [address] [place] [address] 05/16/2025 2:00 PM EDT Office Visit [facility] [address], [address] [place] [address] Marli Godoy MD [address] [place] [address] documented as of this encounter [...] 650 mg, Oral, Once, 1 dose, On 12/15/24 at 1545, RoutineIndications:Acute on chronic systolic heart failure,Iron deficiency anemia, unspecified iron deficiency anemia type Given 12/15/2024 3:23 PM EDT 650 mg diphenhydrAMINE (Benadryl) tablet 25 mg 25 mg, Oral, Once, 1 dose, On 12/15/24 at 1545, RoutineIndications:Acute on chronic systolic heart failure,Iron deficiency anemia, unspecified iron deficiency anemia type Given 12/15/2024 3:23 PM EDT 25 mg iron sucrose (Venofer) 300 mg in sodium chloride 0.9 % 250 mL IVPB 300 mg, Intravenous, at 166.7 mL/hr, Administer over 90 Minutes, Once, 300 mg over 1.5 hr; 400 mg over 2.5 hr, On 12/15/24 at 1545, For 1 dose, NS 250 mL; Vial size 100 mg/5 mL; Maximum cumulative dose of 1000 mg per treatment intervalIndications:Acute on chronic systolic heart failure,Iron deficiency anemia, unspecified iron deficiency anemia type New Bag 12/15/2024 3:36 PM EDT 300 mg 166.7 mL /hr documented in this encounter Additional Health Concerns Assessment Noted Time PHQ-9 Depression Total Score: 0 09/28/19 3:19 PM EDT A fall risk assessment has been complete d for the patient 12/15/2024 3:03 PM EDT A Body Mass Index follow-up plan has been documented for the patient 11/30/2024 4:03 PM EDT documented as of this encounter Care Teams Composition Weatherboard Installer Relationship Specialty Start Date End Date Bill Lamar MD [address] [facility] [place] [address] PCP - General 04/13/22 documented as of this encounter
--- OUTSIDE RECORDS SUMMARY | 2024-12-18 13:30 | XMS_ITS | Encounter Summary ---
Author Organization Healthcare Address [address] [place] [address] Care Team Providers Care Shore Worker Name Role Phone Bill Lamar MD Primary Care Provider [phone] Reason for Referral * Consultation (Routine) - Authorized Specialty Diagnoses / Procedures Referred By Wander t Referred To Contact Diagnoses Constipation, unspecified constipation type Elena Phillips APRN [address] [address] Phone: tel: fax: Referral ID Status Reason Start Date Expiration Date V isits Requested Visits Authorized [id number] Authorized 12/18/2024 06/19/2026 1 1 Reason for Visit * Reason Comments Dysphagia, pharyngoesophageal phase * Consultation (Routine) - Closed Specialty Diagnoses / Procedures Referred By Contac t Referred To Contact Gastroenterology Diagnoses Dysphagia, pharyngoesophageal phase Limited systemic sclerosis (CMS/HCC) Vonnie Ramos MD [address] [place] [address] Phone: tel: fax: Kari Lozano MD [address] [place] [address] Phone: tel: fax: Referral ID Status Reason Start Date Expiration Date V isits Requested Visits Authorized [id number] Closed Specialty Services Required 10/26/2024 04/27/2026 1 1 Encounter Details Date Type Department Care Team (Late st Contact Info) Description 12/18/2024 2:30 PM EDT Office Visit [facility] [address] [place] [address] Elena Phillips K, SLURRY TANK TENDER [address] [place] [address] Constipation, unspecified constipation type (Primary Dx); Hemorrhoids, unspecified hemorrhoid type; Dysphagia, unspecified type Social History Tobacco Use Types Packs/Day Years [...] drink first t cyndie in the morning (EYE-METAL MOLDER) to steady your nerves or to get [...] Sign Reading Time Taken Comments Blood Pressure 112/76 12/18/2024 2:21 PM EDT Pulse 70 12/18/2024 2:21 PM EDT Temperature 36.4 C (97.6 F) 12/18/2024 2:21 PM EDT Respiratory Rate 18 12/18/2024 2:21 PM EDT Oxygen Saturation 95% 12/18/2024 2:21 PM EDT Inhaled Oxygen Concentration - - Weight 82.5 kg (181 lb 14.1 oz) 12/18/2024 2:21 PM EDT Height 154.9 cm (5' 1 ) 12/18/2024 2:21 PM EDT Body Mass Index 34.37 12/18/2024 2:21 PM EDT documented in this encounter Miscellaneous Notes * Patient Instructions - Elena Phillips APRN - 12/18/2024 2:30 PM EDT Liquid Alginate Therapy for Reflux Alginates are an all-natural treatment for reflux. They contain sodium alginate which works as a raft. i.e by forming a thick gel layer on top of the stomach contents which prevents stomach contents from rising back up into the esophagus (food pipe). Alginates do not alter your natural stomach acidproduction like most acid reflux medications, such as proton-pump inhibitors (Prilosec) and H2-blockers (Pepcid). More information can be found at this website: https://www.youtube.com/watch?v=NWJq6vD1l6f&t=49s Various options for purchase. All of these products are best purchased online. RefluxRaft Liquid Directions: Adults: take 5-10ml before bed to start Can be used up to 4 times a day, 30 min after each meal and before bed for breakthrough reflux To Purchase: www.refluxraivi.ru.[employer]s More information can be found at:http://www.refluxraivi.ru.com 2. Reflux Gourmet Flavor: Mint Chocolate Rescue, Vanilla Caramel Liquid Directions: Take 5-10ml before bed to start. Can be used up to 4 times a day, 30 min after each meal and beforebed for breakthrough reflux. To Purchase: Fuel[employer] Search alginate reflux gourmet More information can be found at:[email or web address] Systemsmet.[email or web address]/ 3. Gaviscon Advance I RECOMMEND LIQUID FORM Make sure the bottle says ADVANCE on it (the non-advance form does not have the active ingredient) Recommended Flavor: Peppermint (500 ml) Liquid Directions: Shake well before use. Adults: take 10ml before bed to start. Can be used up to 4 times a day, 30 min after each meal and before bed for breakthrough reflux. To Purchase: FuelMiner Search alginate Gaviscon advance peppermint 500 ml More information can be found at: http://www.Alloy Digital.co.[email or web address] * Progress Notes - Elena Phillips APRN - 12/18/2024 2:30 PM EDT Patient: Melinda Aponte Date of : 1975 Subjective: History of Presenting Illness Ms. Melinda Aponte is a 49 y.o. year old female being seen today in clinic for consultation of dysphagia. PMHx: Raynauds phenomenon, limited scleroderma, esophageal dysmotility, GERD, dysphagia, and Atkins's esophagus status post Jim fundoplication in 2018, fibromyalgia and recently diagnosed heart failure with reduced ejection fraction, GI Hx: She reports acid reflux began as a child. Esophageal dysmotility has been worsening since scleroderma dx in 2021 on hydroxycholorquine, hx of atkins's esophagus T/F for acid reflux: prilosec, prevacid, protonix, rabeprazole, acidphex, dexilent, famotidine, Gaviscon, TUMS Karen on voquezna 20mg daily which she started 4-5 months ago. Also takes famotidine at night. She does not feel any of these medications help much. Acid reflux is worse at night, she sleeps inclined. Water makes it bad. Hx of dysphagia to all consistencies frequently and pills occasionally. She will have regurgitate often and sometimes vomit it back up. EGD 04/29/2023: small HH, 2 cm sessile polyp in gastric bx - patho showed low grade dysplasia in hyperplastic polyp EGD 07/02/2024 which showed cricopharyngeal spasms and underwent dilation EGD with endoflip on 08/03/2024 with 3 cm HH and normal distensibility and no evidence of outflow obstruction Hx of Toupet fundoplication in 2018 for HH and acid reflux/heartburn. Manometry showed 0% of effective swallows. She has GEJ area pain that wakes her up Hyoscyamine PRN which helps on occasion She has been seen by Dr. De La Rosa / ENT On nortriptyline 75mg daily for joint pain from scleroderma. Tried Buspar before which was ineffective. Also CHIDI currently on iron infusions Hx of diverticulitis with current low abd pain Hx of gastroparesis, tried reglan but unable to tolerate due to side effects. She cannot really do gastroparesis diet due to difficulty swallowing .Not on any prokinetics for gastroparesis. She has been seen at [facility] motility clinic but did not feel it was helpful. She also c/o dry mouth. She tried salagen which was not very effective. Constipation, on motegrity 1mg. Tried 2mg daily. More diarrhea. Helping with constipation but not gastroparesis. Tried stool softeners and miralax. Also takes magnesium 500mg nightly. She tries to avoid adding extra stimulant laxatives. She has taken bethanechol previously but not currently. Blood in stool 3 weeks ago, hx of ext/int hemorrhoids. Summary of available workup: EGD 08/03/2024: ESOPHAGUS: The esophagus was dilated. The proximal, mid and distal esophagus were normal. No evidence of reflux esophagitis or esophageal candidiasis. A 3 cm hiatal hernia was noted. Hill grade 3. The LES was at 37 cm and was widely open and the endoscope passed into the stomach without resistance. The EndoFlip catheter was passed to perform measurements as below. Endoflip measurements: 40 mL: Diameter 20.9, Area 234, Pressure 36.8, Distensibility 9.3, Compliance 201. STOMACH: Normal appearing gastric mucosa. The fundoplication wrap was not fully seen. DUODENUM: The duodenal mucosa was normal. On retroflex view, the Hill grade was 3 The scope was then completely withdrawn from the patient and the procedure completed. 1. A 3 cm hiatal hernia, Hill grade 3 2. EndoFlip measurements suggest normal distensibility and no evidence of outflow obstruction 3. Normal gastric and duodenal mucosa 4. No obvious fundoplication warp was observed Thyroid US 12/23/2023: No thyromegaly. No suspicious thyroid nodules. Anorectal manometry 10/2021: The resting anorectal sphincter was normotensive and manometrically unremarkable. With squeeze, there was appropriate sphincteric augmentation that was sustained. With strain/bearing down, there was adequate intrarectal pressure generation and paradoxical increase in anorectal sphincter pressure consistent with dyssynergy. First sensation and urgency to balloon distention were elicited at normal thresholds. Cough was performed and augmentation was appropriate. Balloon distention revealed an intact rectoanal inhibitory reflex. Analysis of 3D image did not show any obvious sphincteric defects. Patient was able to expel the rectal balloon after 50 seconds. EGD 04/29/2023: 1. Small hiatal hernia with single < 1 cm tongue of salmon colored mucosa - biopsies obtained 2. Single, 2 mm sessile polyp proximal gastric body - removed with cold biopsy forceps 3. Normal small bowel mucosa Patho: A. Gastric, fundus polyp, biopsy: - Low-grade dysplasia in hyperplastic polyp B. Esophagus, GE junction, biopsy: - Gastroesophageal junction with moderate acute and chronic inflammation - No intestinal metaplasia or dysplasia - Negative for H. pylori by immunohistochemistry Colonoscopy 01/2024 Extensive diverticulosis was seen at the sigmoid colon with resultant narrowing of the colonic lumen, which did not permit the passage of a pediatric colonoscope despite water insufflation and change in patient position. A standard gastroscope traversed the narrowing with minimal resistance. The overlying mucosa in the sigmoid colon narrowing was edematous but otherwise appeared normal - biopsies were taken. Patho: 1.Colon, random (Biopsy): Normal colonic mucosa. 2.Colon, Sigmoid, Narrowing (Biopsy): Normal colonic mucosa. MBSS 12/22/2023: FINDINGS: Swallowing: There is no aspiration or penetration with thin, nectar, pudding, or cracker. Other: There was severe esophageal dysmotility with the patulous distal esophagus IMPRESSION: No aspiration or penetration No images are attached to the encounter. No results found for this or any previous visit. Esophageal manometry 08/2022 (Pt phone showed report) IRP at 11.6, 100% ineffective swallows, 93% of contractions failed with remainder weak. Most consistent with ineffective motility consistent with scleroderma EGD 02/2022: Atkins's esophagus, [place]ura C0M2, no concerning lesions - surveillance biopsies performed Grade A esophagitis and mild stasis changes in the distal esophagus 3 cm hiatal hernia, post Toupet fundoplication and hiatal hernia repair - retroflex assessment of the wrap could not be performed RECOMMENDATIONS: Await biopsy results. Send TissueCypher biomarker analysis. Schedule local solid gastric emptying test to formally assess delayed gastric emptying Gastroparesis precautions - will send via [employer] message Increase pantoprozole to twice daily EGD 08/2021: Impression: - Abnormal esophageal motility. - Esophageal mucosal changes suspicious for short-segment Atkins's esophagus. Biopsied. - A Toupet fundoplication was found. - Erythematous mucosa in the antrum and prepyloric region of the stomach. Biopsied specifically for the presence of Helicobacter pylori with a CLOtest. - No gross lesions in the duodenal bulb and in the second portion of the duodenum. Barium swallow 07/2018: IMPRESSION: Mildly irregular mucosa to the esophagus which could be related to esophagitis. Small hiatal hernia. Decreased motility. Endoscopic correlation recommended. CT A/P W 08/2024: LOWER CHEST: Clear lungs. Gastroesophageal reflux. Postsurgical changes of Jim fundoplication. ABDOMEN: Liver: Normal in size and contour. No suspicious liver mass. Hepatic vein(s): Patent. Portal vein(s): Patent. Gallbladder/Bile Ducts: Status post cholecystectomy. No biliary ductal dilatation. Spleen: Normal size. Pancreas: No pancreatic mass or pancreatitis. Pancreatic duct normal in caliber. Adrenal Glands: No adrenal nodule. Kidneys: No suspicious renal mass. No hydronephrosis or nephrolithiasis. Ureters are normal. Bowel: No bowel obstruction. Stomach is normal in appearance. Normal appendix. Sigmoid colon diverticulosis with no evidence of acute diverticulitis. Peritoneum/Retroperitoneum: No ascites or free air. Lymph Nodes: No abdominal adenopathy. Vasculature: Normal caliber abdominal aorta. Patent and normal caliber celiac axis,. Patent SMA, and DARLENE. Patent and normal caliber bilateral renal arteries. PELVIS: Reproductive Organs: Hysterectomy. Bladder: No abnormality allowing for degree of filling. Lymph Nodes: No pelvic lymphadenopathy. Vasculature: Normal caliber iliac arteries. Subcutaneous Tissues/Abdominal Wall: No hernia. SKELETAL STRUCTURES: No acute fracture or suspicious osseous lesion. 1. Normal caliber and configuration of the patent celiac access. No findings to suggest median arcuate ligament syndrome. 2. Postsurgical changes of Jim fundoplication and gastroesophageal reflux. Review of Systems All systems negative except those addressed by HPI. Medical History[1] Surgical History[2] Family History[3] Social History Socioeconomic History Marital status: Spouse [...] Insecurity: No Food Insecurity (03/25/2023) Received from [facility] ([place], [place], [place], [place]) Food Insecurity Food run out past 12 months: Not on file Food did not last past 12 months: Not on file Transportation Needs: Not on file Physical Activity: Not on file Stress: Not on file Social Connections: Low Risk (03/25/2023) Received from [facility] ([place], [place], [place], [place]) Family and Community Support Help with Day to Day Activities: Not on file Feeling Lonely or Isolated: Not on file Intimate Partner Violence: Not At Risk (08/03/2024) Received from [facility] Interpersonal Violence Patient afraid of, threatened, hurt, or sexually abused by someone known to him/her: No Housing Stability: Low Risk (03/25/2023) Received from [facility] ([place], [place], [place], [place]) Housing Stability Living situation today: Not on file Living situation problems: Not on file Current Outpatient Medications Medication Instructions acetaminophen (TYLENOL) 1,000 mg, Every 6 hours PRN azelastine (Astelin) 0.1 % nasal spray ADMINISTER 2 SPRAYS INTO EACH NOSTRIL EVERY 12 HOURS carvedilol (COREG) 3.125 mg, 2 times daily clobetasol (Temovate) 0.05 % cream APPLY TOPICALLY TO THE AFFECTED AREA AT BEDTIME EVERY NIGHT colchicine (Colcrys) 0.6 MG tablet colestipol (COLESTID) 1 g, 2 times daily dapagliflozin (FARXIGA) 10 mg, Oral, Daily eplerenone (INSPRA) 25 mg, Oral, Daily estradiol [...] MG tablet 1 tablet, ZZ Daily RT Allergies[4] Objective: BP: ()/() Arterial Line BP: ()/() There is no height or weight on file to calculate BMI. Physical Examination: General Appearance: Awake, alert, in no apparent distress. Head: Normocephalic, atraumatic. Eyes: EOMI, anicteric. Neck: Neck supple. Lungs: Non-labored respirations, equal chest rise Heart: Warm and well perfused Extremities: No gross deformities, warm and well perfused. Neurologic: Mental status intact. No gross neurologic deficits. Immunization History Administered Date(s) Administered Influenza, injectable, MDCK, preservative free, quadrivalent 01/19/2022, 01/23/2023 Influenza, seasonal, injectable, preservative free 12/24/2023 Hanna COVID-19 Vaccine (Blue Cap) 18+ 05/15/2020 Moderna COVID-19 Vaccine (Wire Preparation Worker) 12+ years 01/10/2021, 07/17/2021 Moderna COVID-19 Vaccine Bivalent 6months+ 12/12/2021 Moderna Covid-19 Vaccine 12y+, Carlos Protein, Preservative free 01/23/2023, 12/24/2023 Lab Results Component Value Date GLUCOSE 88 10/06/2024 CALCIUM 9.2 10/06/2024 NA 140 10/06/2024 K 4.0 10/06/2024 CO2 26 10/06/2024 CL 104 10/06/2024 BUN 10 10/06/2024 CREATININE 0.92 10/06/2024 Lab Results Component Value Date WBC 6.73 11/30/2024 HGB 11.3 11/30/2024 HCT 34.8 11/30/2024 MCV 94 11/30/2024 PLT 257 11/30/2024 Ferritin, Serum Date Value Ref Range Status 11/30/2024 34 13 - 150 ng/mL Final Transferrin Saturation Date Value Ref Range Status 11/30/2024 23 14 - 50 % Final No results found for: TSH Hemoglobin A1c Date Value Ref Range Status 12/19/2017 5.60 4.80 - 5.60 % Final Assessment and Plan: Dysphagia Esophageal dysmotility Hx of Atkins's esphagus Acid reflux Upper abd pain -Ddx: Esophageal stricture, Esophageal spasm, EoE, Esophageal dysmotility, GERD, etc. -also with scleroderma and dry mouth which can contribute to dysphagia and dysmotility -Hyoscyamine PRN helps on occassion -EGD 04/29/2023: small HH, 2 cm sessile polyp in gastric bx - patho showed low grade dysplasia in hyperplastic polyp -EGD 07/02/2024 which showed cricopharyngeal spasms and underwent dilation -EGD with endoflip on 08/03/2024 with 3 cm HH and normal distensibility and no evidence of outflow obstruction -Hx of Toupet fundoplication in 2018 for HH and acid reflux/heartburn. -Manometry 2022 IRP at 11.6, 100% ineffective swallows, 93% of contractions failed with remainder weak. Most consistent with ineffective motility consistent with scleroderma -T/F for acid reflux: prilosec, prevacid, protonix, rabeprazole, acidphex, dexilent, famotidine, Gaviscon, TUMS -Currently on voquezna 20mg daily which she started 4-5 months ago. Also takes famotidine at night.She does not feel any of these medications help much. Acid reflux is worse at night, she sleeps inclined. Water makes it bad. -Hx of dysphagia to all consistencies frequently and pills occasionally. She will have regurgitate often and sometimes vomit it back up. Gastroparesis -tried reglan but unable to tolerate due to side effects. -Unable to do gastroparesis diet due to dysphagia: -She has been seen at [facility] motility clinic but did not feel it was helpful. -She has taken bethanechol previously but not currently. Motegrity did not help. Constipation Hemorrhoids -Constipation, on motegrity 1mg. Failed 3mg (diarrhea). Helping with constipation but not gastroparesis. -Tried stool softeners and miralax. Also takes magnesium 500mg nightly. She tries to avoid adding extra stimulant laxatives. -Blood in stool 3 weeks ago, hx of ext/int hemorrhoids. -Colonoscopy 01/2024 - Extensive diverticulosis was seen at the sigmoid colon with resultant narrowing of the colonic lumen, which did not permit the passage of a pediatric colonoscope despite water insufflation and change in patient position. A standard gastroscope traversed the narrowing with minimal resistance. The overlying mucosa in the sigmoid colon narrowing was edematous but otherwise appeared normal - biopsies were taken which were normal CHIDI -hx of CHIDI and currently on iron infusions with normal Hgb and iron studies 11/2024 PLAN: ---continue voquezna 20mg daily and hyoscyamine PRN ---recommend alginate antacids such as Gaviscon advance, reflux gourmet, or reflux raft. Resources for purchasing provided. ---will send in Rx for Mag Oxide 500mg BID for constipation ---Labs: TSH to evaluate for potential constipation factors ---Rx for Anusol cream for hemorrhoids ---Rx for Boost shakes for dysphagia sent to [facility] RECOMMENDATIONS: -Return to clinic at next available appt in [facility] with Brittanie/Dr. Jayne Phillips APRN A total of 75 minutes was spent on this patient encounter - educating patient, interpreting and discussing labs and imaging, impressions, prognosis, risks/benefits of current treatment options, risk factor reduction, instructions for management, and documentation. Care coordination provided included review and summary of medical records and additional diagnostic research, phone collaboration and consult with peers. [1] Past Medical History: Diagnosis Date Anemia Anxiety Osteoarthritis [2] Past Surgical History: Procedure Laterality Date BREAST BIOPSY Left 7 years ago-benign results SECTION, CLASSIC 1998 CHOLECYSTECTOMY HIATAL HERNIA REPAIR HYSTERECTOMY WA BREAST AUGMENTATION WITH IMPLANT [3] Family History Problem Relation Name Age of Onset Breast cancer Maternal Grandmother Breast cancer Mother's Sister [4] Allergies Allergen Reactions Lamotrigine Hives, Palpitations, Itching and Other - please document in the comment field Other Reaction(s): Not available Spironolactone Other - please document in the comment field Restless legs Levofloxacin Nausea, Other - please document in the comment field, Palpitations and Vomiting [place] Other - please document in the comment field Swollen neck documented in this encounter Plan of Treatment Upcoming Encounters Date Type Department Care Team (Late st Contact Info) Description 02/19/2025 9:00 AM EST Ancillary Procedure [facility] [address] [place] [address] 02/19/2025 10:00 AM EST Office Visit [facility] [address] [place] [address] Mariam Urban MD [address] [place] [phone] 04/03/2025 9:00 AM EST Appointment [facility] Function Testing [address] [place] [address] 04/25/2025 11:20 AM EST Office Visit [facility] [address], [address] [place] [id number] Sara Johnson, SL[employer]RY TANK TENDER [address] [place] [id number] 04/26/2025 11:10 AM EST [facility] Visit [facility] [address] [place] [address] 05/16/2025 2:00 PM EDT Office Visit [facility] [address] [place] [address] Marli Godoy MD [address] [place] [address] Scheduled Orders Name Type Priority Associated Diagnoses Orde r Schedule TSH Lab Routine Constipation, unspecified constipation type Expected: 12/18/2024 (Approximate), Expires: 06/21/2026 Scheduled Referrals Name Type Priority Associated Diagnoses Orde r Schedule Follow Up GI Outpatient Referral Routine Constipation, unspecified constipation type 1 Occurrences starting 12/18/2024 until 01/18/2026 documented as of this encounter Goals Goal Patient Goal Type Associated Problems Recent Progress Patient-Stated? Author Patient will verbalize understanding of orthotic wear , care and precautions. Occupational Therapy Pat Oneal documented as of this encounter Visit Diagnoses Diagnosis Constipation, unspecified constipation type- Primary Hemorrhoids, unspecified hemorrhoid type Dysphagia, unspecified type documented in this encounter Additional Health Concerns Assessment Noted Time PHQ-9 Depression Total Score: 0 09/28/19 25 3:19 PM EDT A fall risk assessment has been complete d for the patient 12/18/2024 2:23 PM EDT A Body Mass Index follow-up plan has been documented for the patient 12/18/2024 3:40 PM EDT documented as of this encounter Care Teams Shore Worker Relationship Specialty Start Date End Date Bill Lamar MD [address] [place] [address] PCP - General 04/13/22 documented as of this encounter
--- OUTSIDE RECORDS SUMMARY | 2024-12-22 13:46 | XMS_ITS | Encounter Summary ---
Author Organization Healthcare Address [address] [place] [address] Care Team Providers Care Value Advisor Name Role Phone Bill Lamar MD Primary Care Provider [phone] Reason for Visit * Episode Based Medications (Routine) - Closed Specialty Diagnoses / Procedures Referred By Contprabha t Referred To Contact Diagnoses Acute on chronic systolic heart failure Iron deficiency anemia, unspecified iron deficiency anemia type Procedures [facility] IRON SUCROSE INJECTION Mitul Garza MD [address] [place] [address] Phone: tel: fax: Mitul Garza MD [address] [place] [address] Phone: tel: fax: Referral ID Status Reason Start Date Expiration Date Visits Re quested Visits Authorized [id number] Closed 11/14/2024 06/28/2026 1 8 Encounter Details Date Type Department Care Team (Latest Contact Info) Description 12/22/2024 2:46 PM EDT - 12/22/2024 11:59 PM EDT Hospital Encounter [facility] [address] [place] [id number] Iron deficiency anemia, unspecified iron deficiency anemia [...] drink first t cyndie in the morning (EYE-MAPPING ANALYST) to steady your nerves or to [...] Reading Time Taken Comments Blood Pressure 106/73 12/22/2024 2:46 PM EDT Pulse 79 12/22/2024 2:46 PM EDT Temperature 36.4 C (97.5 F) 12/22/2024 2:46 PM EDT Respiratory Rate 18 12/22/2024 2:46 PM EDT Oxygen Saturation 96% 12/22/2024 2:46 PM EDT Inhaled Oxygen Concentration - - Weight 82.2 kg (181 lb 3.5 oz) 12/22/2024 2:46 P M EDT Height 154.9 cm (5' 1 ) 12/22/2024 2:46 PM EDT Body Mass Index 34.24 12/22/2024 2:46 PM EDT documented in this encounter Medications [...] 2 sprays in each nostril daily 06/06/2024 glucosamine-chondr oitin 500-400 MG tablet Take 1 tablet by mouth 3 times a day. hydrocortisone (Anusol-HC) 2.5 % rectal creamIndications:H emorrhoids, unspecified hemorrhoid type Apply small amount to hemorrhoids up to 3 times daily after wiping and using witch jemima for 7 days when hemorrhoids inflamed. 28 g 5 12/18/2024 hydrocortisone 2.5 % cream Apply 1 Application topically 2 times a day. 12/19/2024 hyoscyamine (Levsin) 0.125 MG SL tablet 08/01/2024 Magnesium Oxide -Mg Supplement 500 MG capsuleIndications :Constipation, unspecified constipation type Take 500 mg by mouth 2 times a day as needed (constipation). 60 capsule 5 12/18/2024 Melatonin 12 MG tablet Take 24 mg by mouth. Motegrity 2 MG tablet Take 1 tablet (2 mg) by mouth 1 (one) time each day. 11/09/2023 nitroglycerin (Sohail-Bid) 2 % ointmentIndication s:Raynaud's disease without gangrene,Limited systemic sclerosis (CMS/HCC) Place 0.5 inches on the skin 2 times a day as needed (Raynauds). 30 g 5 10/26/2024 nortriptyline (Pamelor) 50 MG capsule Take 1 capsule (50 mg) by mouth 1 (one) time each day. 08/19/2022 nutritional drink (Boost Plus) liquid liquidIndications: Dysphagia, unspecified type Take 237 mL by mouth 3 times a day. [address]643 mL 11 12/18/2024 ondansetron (Zofran) 4 MG tablet polyethylene glycol (Miralax) 17 g packet Take 17 g by mouth daily. promethazine (Phenergan) 25 MG tablet Take 1 tablet (25 mg) by mouth every 8 (eight) hours if needed. 09/26/2023 sacubitril-valsart an (Entresto) 24-26 MG tablet Take 1 tablet by mouth 2 times a day. 60 tablet 5 10/16/2024 Voquezna 20 MG tablet Take 1 tablet by mouth 1 time each day. 08/22/2024 dapagliflozin (Farxiga) 10 MG tablet Take 1 tablet by mouth daily. 30 tablet 5 11/28/2024 hydroxychloroquine (Plaquenil) 200 MG tablet LORazepam (Ativan) 1 MG tablet Take 1 tablet by mouth daily. documented as of this encounter Plan of Treatment Upcoming Encounters Date Type Department Care Team (Late st Contact Info) Description 02/19/2025 9:00 AM EST Ancillary Procedure [facility] [address] [place] [id number] 02/19/2025 10:00 AM EST Office Visit [facility] [address] [place] [address] Mariam Urban MD [address] [place] [phone] 04/03/2025 9:00 AM EST Appointment [facility] Pul[facility] Function Testing [address] [place] [address] 04/25/2025 11:20 AM EST Office Visit [facility] Mercedita Newcomb [address] [facility], [address] [place] [id number] Sara Johnson, EMANATIONS ANALYSIS TECHNICIAN [address] [place] [phone] 04/26/2025 11:10 AM EST Office Visit [facility] [address] [place] [address] 05/16/2025 2:00 PM EDT Office Visit [facility] [address] [place] [address] Marli Godoy MD [address] [place] [address] documented as of this encounter [...] 25 mg, Oral, Once, 1 dose, On 12/22/24 at 1515, RoutineIndications:Acute on chronic systolic heart failure,Iron deficiency anemia, unspecified iron deficiency anemia type Given 12/22/2024 2:56 PM EDT 25 mg iron sucrose (Venofer) 300 mg in sodium chloride 0.9 % 250 mL IVPB 300 mg, Intravenous, at 166.7 mL/hr, Administer over 90 Minutes, Once, 300 mg over 1.5 hr; 400 mg over 2.5 hr, On 12/22/24 at 1515, For 1 dose, NS 250 mL; Vial size 100 mg/5 mL; Maximum cumulative dose of 1000 mg per treatment intervalIndications:Acute on chronic systolic heart failure,Iron deficiency anemia, unspecified iron deficiency anemia type New Bag 12/22/2024 3:22 PM EDT 300 mg 166.7 mL /hr documented in this encounter Additional Health Concerns Assessment Noted Time PHQ-9 Depression Total Score: 0 09/28/19 3:19 PM EDT A fall risk assessment has been complete d for the patient 12/22/2024 2:46 PM EDT A Body Mass Index follow-up plan has been documented for the patient 12/18/2024 3:40 PM EDT documented as of this encounter Care Teams Value Advisor Relationship Specialty Start Date End Date Bill Lamar MD [address] [place] [address] PCP - General 04/13/22 documented as of this encounter
--- OUTSIDE RECORDS SUMMARY | 2024-12-25 09:00 | XMS_ITS | Encounter Summary ---
Author Organization Healthcare Address [address] [place] [address] Care Team Providers Care Assessment Rn Name Role Phone Bill Lamar MD Primary Care Provider [phone] Encounter Details Date Type Department Care Team ([facility] st Contact Info) Description 12/25/2024 10:00 AM EDT Office Visit [facility] [place] [address], [address] [place] [address] Sara Johnson, DEPUTY JUVENILE OFFICER [address] [place] [address] HFrEF (heart failure with reduced ejection fraction) (Primary Dx); NICM (nonischemic cardiomyopathy) (CMS/HCC); Iron deficiency anemia, unspecified iron deficiency anemia [...] Miscellaneous Notes * Progress Notes - Sara Johnson APRN - 12/25/2024 10:00 AM EDT Images from the original note were not included. Advanced Heart Failure Follow Up Patient Verification Patient identity has been confirmed using name and date of ? Yes Authorizations and Agreements/Telemedicine Consent sent and consent confirmed? Yes Patient Location: Patient's Home Patient confirms they are physically located in [place]? Yes Provider Location: Provider's Home Audio and video or audio only? Audio and video Audio only due to N/A Melinda Shannan Aponte is a 49 y.o. female who presents for medication optimization. Prior Cardiac and Medical History/History of Present Illness History of longstanding Raynauds phenomenon, limited scleroderma (anticentromere antibody positive,puffy fingers, positive sicca, telangiectasias), esophageal dysmotility, GERD with dysphagia and Silveira's esophagus status post Jim fundoplication in 2019, fibromyalgia and recently diagnosed heart failure with reduced ejection fraction, most recently established care with Dr. Adele Lewis on01/09/2024 at [facility]. Ms. Aponte was started on GDMT (Entresto, low dose Coreg, Jardiance). More recently in 08/2024, she had an echo done at [facility] which noted LV systolic dysfunction with increased LV wall thickness (LVEF 35-40%). She follows at [facility] for diagnosis of scleroderma and [...] at this time by Dr. Faraz Laurent ([facility]). She states that she continues to get HRreadings in the 40's on her fit bit associated with dizziness. She was having discussion with her local teacher public health in [place] on whether she should get a loop recorder placed. 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 With regards to GDMT up-titration, she had constipation and headaches with higher doses of entresto.She has also had restless legs with spironolactone. She recently had a CT chest done at [facility] which showed multiple tiny lung nodules. She says these nodules were not noted before. However, it appears that a second opinion read ofthe same CT done at [facility] noted that this was not significantly changed from prior exams there. History of Present Illness At the last OV, eplerenone was initiated, which she tolerated without difficulty. Jardiance was switched to farxiga d/t dysphagia. She was treated for a UTI prior to starting farxiga and unfortunately now has another UTI, for which she was prescribed cipro. Farxiga was held d/t this. She continues to experience shortness of breath during physical activities such as walking at a brisk pace or climbing stairs. However, she does not experience this symptom when walking at her own pace on flat ground or during routine daily activities like showering or dressing. She has consulted with [facility] regarding cardiac rehabilitation but was advised that it may not be necessary due to her ability to exercise at home. She maintains a moderate walking regimen at home. Denies chest pains, lightheadedness, syncope. Palpitations have improved. Her blood pressure readings have been consistently low, typically around 100 systolic and in the 70s diastolic, with a reading of 97/77 this morning. HR usually runs in the 70-80s, but her fit bit still will show a drop in her HR to the 40s in the afternoons. She is getting iron infusions but isn't sure if it is helping yet. Review of symptoms 14 Point ROS reviewed and is otherwise negative except as per HPI. Past Medical History Past Medical History[1] Surgical History Surgical History[2] Family History family history includes Abnormal EKG in her father; Anemia in her maternal grandmother and mother; Arrhythmia in her father, father's brother, and father's sister; Arthritis in her father and mother;Atrial fibrillation in her father; Autoimmune disease in her father's sister; Breast cancer in her maternal grandmother and mother's sister; Cancer in her maternal grandmother and mother's sister; Diabetes (age of onset: 60 - 69) in her paternal grandmother; Diabetes type II in her paternal grandmother; Heart attack in her father's brother, father's sister, and paternal grandfather; Heart diseasein her father and mother; Heart failure in her mother; Hypertension in her mother; Kidney disease in her mother; Obesity in her brother, father, and mother; Osteoarthritis in her mother; Stroke in her mother; Sudden in her mother; Thyroid disease in her mother. Social History reports that she has never smoked. She has never been exposed to tobacco smoke. She has never used smokeless tobacco. She reports current alcohol use of about 2.0 standard drinks of alcohol per week.She reports that she does not use drugs. Medications Current Medications[3] Physical Exam Constitutional: Appearance: Normal appearance. Neurological: Mental Status: Alert and oriented to person, place, and time. Psychiatric: Mood and Affect: Mood normal. Behavior: Behavior normal. There were no vitals taken for this visit. DIAGNOSTIC STUDIES - EKG (09/27/24): Normal sinus [...] study available for comparison. Cardiac catheterizations - R/C (09/16/2023) 1)No angiographic CAD 2)LVEF=50-55% with no regional wall motion abnormalities 3)No significant gradient across Aortic Valve 4)LVEDP=16-17 mmHg 5)RHC data: -RA=14 mmHg -RV=34/8 mmHg -PA=29/17 mmHg (mean=22 mmHg) -PCWP=15-17 mmHg 6)U/s-guided RFA & RFV access 7)6F Mynx closure device placed in RFA. Recommendations 1)F/u with local jewel grinder in 1-2 weeks for reassessment 2)F/u with [...] of fibrosis. Second opinion interpretation done at [facility] of outside CT chest dated [...] indicating she does not have the condition. EHA94D6: c.424G>T, p.[id number] Testing also identified a variant of uncertain significance in MYBPC3: c.2980C>T, p.Fxi119Obl Cardiomyopathy is associated with MYBPC3. 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 [employer] currently classifies the evidence in association with DCM as limited. Labs Lab Results Component Value Date HGB 11.3 11/30/2024 HCT 34.8 11/30/2024 PLT 257 11/30/2024 ALT 21 10/06/2024 AST 27 10/06/2024 NA 136 12/22/2024 K 4.1 12/22/2024 CREATININE 1 12/22/2024 BUN 9 12/22/2024 CO2 26 12/22/2024 HGBA1C 5.60 12/19/2017 BNP 238 09/27/2024 Assessment and Plan HFrEF s/t NICM -NYHA Class III -denies s/s of decompensated heart failure -EF 35-40% per echo 08/2024 -EF 41% per CMR 10/2024 -GDMT: entresto 24/26 mg BID, coreg 3.125 mg BID, eplerenone 25 mg daily -Did not tolerate higher doses of Entresto d/t hypotension/dizziness. Did not tolerate jardiance d/t dysphagia. Sae recently d/c'd d/t UTI, but she is willing to try again in the future. -Continue current medications. Up-titration of GDMT limited d/t borderline BPs. Bradycardia -Continues to note HR in the 40s on her fit bit -Holter monitor 09/2024:Primary rhythm was Sinus Rhythm. Average heart rate was 85 bpm, Minimum heart rate was 70 bpm on Day :10:23 am, Max heart rate was 128 bpm on Day :35:55 am. SVE(s):[place] was 0.02 %, 86 total SVE. SV Arrhythmia(s): 1 event(s), longest event 3 beats on Day :36:00 am, fastest event 128 bpm on Day :36:00 Am. PVC(s): [place] was < 0.01 %, 15 total PVC(s), 1 disparate morphologies A total time of 30 minutes was spent addressing the current illness, reviewing records (prior imaging, lab work, etc), and formulating a plan. The patient is agreeable to the plan and all pertinent questions were answered. Follow up as scheduled with Dr. Greg Johnson, DEPUTY JUVENILE OFFICER 12/25/24 Verbal consent was obtained to use ambient listening technology to assist in the documentation of the encounter: yes [1] Past Medical History: Diagnosis Date Abnormal ECG Anemia Anxiety Arrhythmia CHF (congestive heart failure) Depression Dizziness Eczema Fibromyalgia, primary 2021 GERD (gastroesophageal reflux disease) Heart murmur History of trauma Infectious viral hepatitis Obesity Osteoarthritis Raynaud phenomenon Scleroderma TMJ dysfunction [2] Past Surgical History: Procedure Laterality Date AUGMENTATION MAMMAPLASTY BREAST BIOPSY Left 7 years ago-benign results CARDIAC CATHETERIZATION SECTION, CLASSIC 1998 CHOLECYSTECTOMY ESOPHAGOGASTRODUODENOSCOPY HERNIA REPAIR HIATAL HERNIA REPAIR HYSTERECTOMY KNEE ARTHROPLASTY KS BREAST AUGMENTATION WITH IMPLANT SKIN BIOPSY [3] Current Outpatient Medications Medication Sig Dispense Refill acetaminophen (Tylenol) 500 MG tablet Take 2 tablets by mouth every 6 hours as needed. azelastine (Astelin) 0.1 % nasal spray ADMINISTER 2 SPRAYS INTO EACH NOSTRIL EVERY 12 HOURS carvedilol (Coreg) 3.125 MG tablet Take 1 tablet by mouth 2 times a day. clobetasol (Temovate) 0.05 % cream APPLY TOPICALLY TO THE AFFECTED AREA AT BEDTIME EVERY NIGHT colchicine (Colcrys) 0.6 MG tablet colestipol (Colestid) 1 g tablet Take 1 tablet by mouth twice a day. dapagliflozin (Farxiga) 10 MG tablet Take 1 tablet by mouth daily. 30 tablet 5 eplerenone (Inspra) 25 MG tablet Take 1 tablet by mouth daily. 30 tablet 5 estradiol (Estrace) 2 MG tablet estradiol (Vagifem) 10 MCG tablet vaginal tablet estradiol (Vivelle-DOT) 0.025 MG/24HR estradiol 2MG DAILY famotidine (Pepcid) 40 MG tablet famotidine 40 mg fluticasone (Flonase) 50 MCG/ACT nasal spray shake liquid and use 2 sprays in each nostril daily glucosamine-chondroitin 500-400 MG tablet Take 1 tablet by mouth 3 times a day. hydrocortisone (Anusol-HC) 2.5 % rectal cream Apply small amount to hemorrhoids up to 3 times dailyafter wiping and using witch jemima for 7 days when hemorrhoids inflamed. 28 g 5 hydroxychloroquine (Plaquenil) 200 MG tablet hyoscyamine (Levsin) 0.125 MG SL tablet LORazepam (Ativan) 1 MG tablet Take 1 tablet by mouth daily. Magnesium Oxide -Mg Supplement 500 MG capsule Take 500 mg by mouth 2 times a day as needed (constipation). 60 capsule 5 Melatonin 12 MG tablet Take 24 mg by mouth. Motegrity 2 MG tablet Take 1 tablet (2 mg) by mouth 1 (one) time each day. (Patient taking differently: Take 1 mg by mouth 1 time each day.) nitroglycerin (Sohail-Bid) 2 % ointment Place 0.5 inches on the skin 2 times a day as needed (Raynauds). 30 g 5 nortriptyline (Pamelor) 50 MG capsule Take 1 capsule (50 mg) by mouth 1 (one) time each day. (Patient taking differently: Take 75 mg by mouth 1 time each day.) nutritional drink (Boost Plus) liquid liquid Take 237 mL by mouth 3 times a day. [address]79 mL 11 ondansetron (Zofran) 4 MG tablet polyethylene glycol (Miralax) 17 g packet Take 17 g by mouth daily. promethazine (Phenergan) 25 MG tablet Take 1 tablet (25 mg) by mouth every 8 (eight) hours if needed. sacubitril-valsartan (Entresto) 24-26 MG tablet Take 1 tablet by mouth 2 times a day. 60 tablet 5 Voquezna 20 MG tablet Take 1 tablet by mouth 1 time each day. No current facility-administered medications for this visit. documented in this encounter Plan of Treatment Upcoming Encounters Date Type Department Care Team (Late st Contact Info) Description 02/19/2025 9:00 AM EST Ancillary Procedure [facility] [address] [facility], [address] [place] [phone] 02/19/2025 10:00 AM EST Office Visit [facility] [place] [id number] [address] Mariam Urban MD [address] [place] [address] 04/03/2025 9:00 AM EST Appointment [facility] Pulmonary Function Testing [address] [place] [address] 04/25/2025 11:20 AM EST Office Visit [facility] [place] [address], [address] [place] [address] Sara Johnson APRN [address] [place] [address] 04/26/2025 11:10 AM EST Office Visit [facility] [address] [facility] [address] [place] [address] 05/16/2025 2:00 PM EDT Office Visit [facility] [place] [address] [facility], [address] [place] [phone] Marli Godoy MD [address] [place] [address] documented as of this encounter Goals Goal Patient Goal Type Associated Problems Recent Progress Patient-Stated? Author Patient will verbalize understanding of orthotic wear , care and precautions. Occupational Therapy Pat Oneal documented as of this encounter Visit Diagnoses Diagnosis HFrEF (heart failure with reduced ejection fraction)- Primary NICM (nonischemic cardiomyopathy) ([facility]) Iron deficiency anemia, unspecified iron deficiency anemia type documented in this encounter Additional Health Concerns Assessment Noted Time PHQ-9 Depression Total Score: 0 09/28/19 25 3:19 PM EDT A fall risk assessment has been complete d for the patient 12/22/2024 2:46 PM EDT A Body Mass Index follow-up plan has been documented for the patient 12/25/2024 10:34 AM EDT documented as of this encounter Care Teams Assessment Rn Relationship Specialty Start Date End Date Bill Lamar MD [address] [place] [address] PCP - General 04/13/22 documented as of this encounter
--- OUTSIDE RECORDS SUMMARY | 2025-01-08 16:00 | XMS_ITS | Encounter Summary ---
Author Organization Healthcare Address [address] [place] [address] Care Team Providers Care Portrait Painter Name Role Phone Bill Lamar MD Primary Care Provider [phone] Reason for Referral * Consultation (Routine) - Authorized Specialty Diagnoses / Procedures Referred By Wander aragon Referred To Contact Diagnoses Systolic dysfunction, left ventricle Sima Luis APRN [address] [place] [address] Phone: tel: fax: Referral ID Status Reason Start Date Expiration Date V isits Requested Visits Authorized [id number] Authorized 01/08/2025 07/10/2026 1 1 Reason for Visit * Consultation (Routine) - Closed Specialty Diagnoses / Procedures Referred By Wander aragon Referred To Contact Diagnoses Chronic heart failure, unspecified heart failure type Mitul Garza MD [address] [place] [address] Phone: tel: fax: Referral ID Status Reason Start Date Expiration Date Visits Re quested Visits Authorized [id number] Closed 09/27/2024 03/29/2026 1 1 Encounter Details Date Type Department Care Team ([facility] st Contact Info) Description 01/08/2025 4:00 PM EST Office Visit [facility] [place] [address] [facility], [address] [place] [address] Mitul Garza MD [address] [place] [phone] Systolic dysfunction, left ventricle (Primary Dx) Social History Tobacco Use Types Packs/Day Years Used Date Smoking Tobacco: Never Passive Smoke Exposure: Never Smokeless Tobacco: Never Alcohol Use Standard Drinks/Week Comments Yes 2 (1 standard drink = 0.6 oz pur e alcohol) PHQ-2 Answer Date Recorded Patient Health Questionnaire-2 Score 0 01/08/2025 PHQ-9 Answer Date Recorded Patient Health Questionnaire-9 Score 0 01/08/2025 AUDIT-C Answer Date Recorded Q1: How often [...] drink first t cyndie in the morning (EYE-CHIEF RADIATION THERAPIST) to steady your nerves or to get [...] Sign Reading Time Taken Comments Blood Pressure 141/84 01/08/2025 5:25 PM EST Pulse 81 01/08/2025 5:25 PM EST Temperature - - Respiratory Rate 15 01/08/2025 4:18 PM EST Oxygen Saturation - - Inhaled Oxygen Concentration - - Weight 82 kg (180 lb 12.4 oz) 01/08/2025 4:18 PM EST Height 154.9 cm (5' 1 ) 01/08/2025 4:18 PM EST Body Mass Index 34.16 01/08/2025 4:18 PM EST documented in this encounter Functional Status * Over the past 2 weeks, how often have you been bothered by any of the following problems? Question Answer Date of Assessment Author Little interest or pleasure in doing things Not at all 01/08/2025 4:23 PM Ivon Caicedo Feeling down, depressed, or hopeless Not at all 01/08/2025 4:23 PM Ivon Caicedo Patient Health Questionnaire -2 Score 0 01/08/2025 4:23 PM Ivon Caicedo * Question Answer Date of Assessment Author Trouble falling or staying a sleep, or sleeping too much Not at all 01/08/2025 4:23 PM Ivon Caicedo Feeling tired or having bobbi le energy Not at all 01/08/2025 4:23 PM Ivon Caicedo Poor appetite or overeating Not at all 01/08/2025 4: 23 PM Ivon Caicedo Feeling bad about yourself - or that you are a failure or have let yourself or your family down Not at all 01/08/2025 4:23 PM Ivon Caicedo Trouble concentrating on thi ngs, such as reading the newspaper or watching television Not at all 01/08/2025 4:23 PM Ivon Caicedo Moving or speaking so slowly that other people could have noticed? Or the opposite - being so fidgety or restless that you have been moving around a lot more than usual. Not at all 01/08/2025 4:23 PM Ivon Reid Thoughts that you would be b wesley off or hurting yourself in some way Not at all 01/08/2025 4:23 PM Ivon Caicedo Patient Health Questionnaire -9 Score 0 01/08/2025 4:23 PM Ivon Caicedo * How difficult have these problems made it for you to do your work, take care of things at home, or get along with other people? Answer Date of Assessment Author Not difficult at all 01/08/2025 4:23 PM EST Ivon Coughlin documented as of this encounter Miscellaneous Notes * Progress Notes - Sima Luis, CAROLE - 01/08/2025 4:00 PM EST Advanced Heart Failure Follow Up Melinda Aponte is a 49 y.o. female who presents today for systolic heart failure History of Present Illness The patient is a 49-year-old female with chronic systolic heart failure and nonischemic cardiomyopathy, managed with Entresto, carvedilol, and Farxiga. An echocardiogram in August 2024 showed left ventricular systolic dysfunction with a left ventricular ejection fraction (LVEF) of 35-40%. A cardiac MRI in January 2024 showed an ejection fraction (EF) of 40%, hypokinetic septal and inferior mccarthy, and no late gadolinium enhancement (LGE). 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 She experiences daily bradycardia, which is sometimes perceptible, along with occasional dizziness,lightheadedness, and hypotension. This is noted on her fit Bit . Her exercise tolerance is poor; she can manage walking a mile, but finds grocery shopping exhausting. She does not have fluid retention or orthopnea. She reports dizziness but has not experienced anyfalls. Her blood pressure ranges from the 90s/60s to 110s/70s. Her current medications include carvedilol 3.125 mg twice daily, Inspra 25 mg, Entresto, and Farxiga, which was discontinued due to a uri nary tract infection (UTI). An increase in Entresto dosage was discontinued due to hypotension. She has low energy levels, palpitations, lightheadedness, and dizziness. Her sleep is disrupted andmanaged with nortriptyline and Ativan. She has a sedentary job and consumes one cup of coffee daily. She had a hysterectomy 10 years ago and is on estrogen replacement therapy. She has experienced voice changes , weak voice, fades with conversation. Her next pulmonology appointment is scheduled for February 2025. Her joint pain is managed with nortriptyline, hydroxychloroquine, and Tylenol. She discontinued strength training prior to her scleroderma diagnosis. Exercise: Walks at own pace, uses treadmill at home, walks outside around the block. Diet: Drinks Boost occasionally; has swallowing issues. Review of symptoms Constitutional: Negative for decreased appetite and weight gain. Cardiovascular: Negative for chest pain, +dyspnea on exertion, leg swelling, near-syncope, orthopnea, palpitations, paroxysmal nocturnal dyspnea and syncope. Respiratory: Negative for cough, shortness of breath and sleep disturbances due to breathing. Gastrointestinal: Negative for bloating. 14 Point ROS reviewed and is otherwise [...] use drugs. Medications Current Medications[3] Physical Exam Constitutional General Appearance: Not in acute distress, appears well nourished Eyes Conjunctiva and lids: No erythema, swelling or discharge Ears, Nose, Mouth, and Throat Examination of the oral mucosa: Moist and without pallor , anicteric Neck Examination of Jugular veins: No JVD Pulmonary Respiratory effort: No increased work of breathing or signs of respiratory distress Auscultation of lungs: clear Cardiovascular Auscultation of heart: RRR, normal S1S2, no murmur, gallops, or rub Examination of extremities for edema: no edema Abdomen Examination of Abdomen: no hepatomegaly, normal bowel sounds Musculoskeletal Inspection/palpation of digits and nails: Normal without clubbing or cyanosis Skin Inspection of Skin and Subcutaneous Tissue: no rash/cyanosis Psychiatric Orientation to person, place, and time: Normal Visit Vitals BP (!) 141/84 (Patient Position: Standing) Pulse 81 Ht 1.549 m (5' 1 ) Wt 82 kg (180 lb 12.4 oz) BMI 34.16 kg/m?? Cardiac Testing R/C (09/16/2023) 1)No angiographic CAD 2)LVEF=50-55% with no regional wall motion abnormalities 3)No significant gradient across Aortic Valve 4)LVEDP=16-17 mmHg 5)RHC data: -RA=14 mmHg -RV=34/8 mmHg -PA=29/17 mmHg (mean=22 mmHg) -PCWP=15-17 mmHg Imaging No echocardiogram results found for the past 12 months Labs Lab Results Component Value Date HGB 11.3 11/30/2024 HCT 34.8 11/30/2024 PLT 257 11/30/2024 ALT 21 10/06/2024 AST 27 10/06/2024 NA 136 12/22/2024 K 4.1 12/22/2024 CREATININE 1 12/22/2024 BUN 9 12/22/2024 CO2 26 12/22/2024 HGBA1C 5.60 12/19/2017 Assessment & Plan Chronic Systolic Heart Failure: HF mid EF, LVEF 40%, compensated on exam, Orthostatics done , were negative for significant orthostasis Lying 137/81, HR 81 Sitting 135/84, HR 81 Stand:141/84, HR 81 Order CPX test to evaluate heart and lung efficiency. Adjust beta-reyes therapy if CPX test indicates cardiac issues. Consider switching from carvedilol to Toprol at bedtime. Regular follow-up to assess treatment efficacy and symptom progression. Continue guideline-directed medical therapy: Entresto, carvedilol 3.125 mg BID, Farxiga. Farxiga had stopped due to UTI, Monitor blood pressure regularly. Consider alternative beta-reyes therapy if symptoms persist. Limited Scleroderma/ fatigue Fatigue could be due to more the sclerodrma than the HF , symptoms out of proportion for EF of 40% Engage in regular, gentle physical activity to improve cardiovascular fitness, strength, and flexibility.Educate patient on dietary modification Continue nortriptyline and Ativan. Try to get 8 hrs sleep Follow-up: Regular follow-up to assess treatment efficacy and symptom progression. A total time of 55 minutes was spent addressing the current illness, reviewing records (prior imaging, lab work, etc), discussing results and formulating a plan. This time includes face to face with patient, counseling and discussion and/or coordination of care, discussing management options and counseling patient on the risks and benefits of various therapeutic approaches, and completing documentation for this clinical encounter.The patient is agreeable to the plan and all pertinent questions were answered. This patient was seen, reviewed and plan formulated in conjunction with Dr. Garza Meds have been reviewed and refills provided as needed. The patient/family have been given the numbers to contact for questions, concerns, or change in symptoms. Follow UP 3 months Verbal consent was obtained to use ambient listening technology to assist in the documentation of the encounter: yes Sima Luis APRN Advanced [facility] [1] Past Medical History: Diagnosis Date Abnormal ECG Anemia Anxiety Arrhythmia CHF (congestive heart failure) Complex tear of medial meniscus of right knee as current injury 01/19/2022 Depression Dizziness Eczema Fibromyalgia, primary 2021 GERD (gastroesophageal reflux disease) Heart murmur History of trauma Infectious viral hepatitis Obesity Osteoarthritis Raynaud phenomenon Scleroderma TMJ dysfunction [2] Past Surgical History: Procedure Laterality Date AUGMENTATION MAMMAPLASTY BREAST BIOPSY Left 7 years ago-benign results CARDIAC CATHETERIZATION SECTION, CLASSIC 1998 CHOLECYSTECTOMY ESOPHAGOGASTRODUODENOSCOPY HERNIA REPAIR HIATAL HERNIA REPAIR HYSTERECTOMY KNEE ARTHROPLASTY WI BREAST AUGMENTATION WITH IMPLANT SKIN BIOPSY [3] [...] THE AFFECTED AREA AT BEDTIME EVERY NIGHT eplerenone (Inspra) 25 MG tablet Take 1 [...] days when hemorrhoids inflamed. 28 g 5 hydrocortisone 2.5 % cream Apply 1 Application topically 2 times a day. hydroxychloroquine (Plaquenil) 200 MG tablet Take 1 tablet by mouth 2 times a day. 180 tablet 1 hyoscyamine (Levsin) 0.125 MG SL tablet LORazepam (Ativan) 1 MG tablet Take 1 tablet by mouth daily. 30 tablet 1 Magnesium Oxide -Mg Supplement 500 MG capsule Take 500 mg by mouth 2 times a day as needed (constipation). 60 capsule 5 Melatonin 12 MG tablet Take 24 mg by mouth. Motegrity 2 MG tablet Take 1 tablet (2 mg) by mouth 1 (one) time each day. nitroglycerin (Sohail-Bid) 2 % ointment Place 0.5 inches on the skin 2 times a day as needed (Raynauds). 30 g 5 nortriptyline (Pamelor) 50 MG capsule Take 1 capsule (50 mg) by mouth 1 (one) time each day. nutritional drink (Boost Plus) liquid liquid Take 237 mL by mouth 3 times a day. 37732 mL 11 ondansetron (Zofran) 4 MG tablet [...] tablet by mouth 1 time each day. colchicine (Colcrys) 0.6 MG tablet (Patient not taking: Reported on 01/08/2025) colestipol (Colestid) 1 g tablet Take 1 tablet by mouth twice a day. (Patient not taking: Reported on 01/08/2025) No current facility-administered medications for this visit. documented in this encounter Plan of Treatment Upcoming Encounters Date Type Department Care Team (Late st Contact Info) Description 02/19/2025 9:00 AM EST Ancillary Procedure [facility] [address] [address] 02/19/2025 10:00 AM EST Office Visit [place] [address] [address] Mariam Urban MD [address] [place] [address] 04/03/2025 9:00 AM EST Appointment [facility] Function Testing [address] [place] [address] 04/25/2025 11:20 AM EST Office Visit [facility] [place] [address] [facility], [address] [place] [address] Sara Johnson APRN [address] [place] [address] 04/26/2025 11:10 AM EST Office Visit [place] [address] [address] 05/16/2025 2:00 PM EDT Office Visit [place] [address] [address] Marli Godoy MD [address] [place] [address] Scheduled Orders Name Type Priority Associated Diagnoses Orde r Schedule Cardiopulmonary Exercise Test PFT Routine Systolic dysfunction, left ventricle 1 Occurrences starting 01/08/2025 until 07/08/2026 CPET ECG PFT Routine Systolic dysfunction, left ventricle 1 Occurrences starting 01/08/2025 until 07/08/2026 Scheduled Referrals Name Type Priority Associated Diagnoses Order Schedule Follow Up Cardiology Outpatient Referral Routine Systolic dysfunction, left ventricle Expected: 04/10/2025 (Approximate), Expires: 07/08/2026 documented as of this encounter Goals Goal Patient Goal Type Associated Problems Recent Progress Patient-Stated? Author Patient will verbalize understanding of orthotic wear , care and precautions. Occupational Therapy No Pat Bueno documented as of this encounter Visit Diagnoses Diagnosis Systolic dysfunction, left ventricle- Primary documented in this encounter Additional Health Concerns Assessment Noted Time PHQ-9 Depression Total Score: 0 01/09/20 25 4:23 PM EST A fall risk assessment has been complete d for the patient 01/08/2025 3:53 PM EST A Body Mass Index follow-up plan has been documented for the patient 01/09/2025 11:52 AM EST documented as of this encounter Care Teams Portrait Painter Relationship Specialty Start Date End Date Bill Lamar MD [address] [place] [address] PCP - General 04/13/22 documented as of this encounter
--- OUTSIDE RECORDS SUMMARY | 2025-01-11 16:42 | XMS_ITS | Encounter Summary ---
Author Organization [employer] ([place], [place], [place], [place], [place]) Address [address] [place] [address] Care Team Providers Care Director Zone Name Role Phone Unavailable Primary Care Provider Unavailabl e Encounter Details Date Type Department Care Team (Late st Contact Info) Description 09/30/[address] [facility] Family Medicine [address] [place] [address] ProviderLeyda MD [address] [place] [address] Social History Tobacco Use Types Packs/Day Years [...] All Active Orders Reviewed : Yes Lawson Garces, RN - 09/30/2018 5:11 EDT documented in this encounter Plan of Treatment Not on file documented as of this encounter Visit Diagnoses Not on filedocumented in this encounter
--- OUTSIDE RECORDS SUMMARY | 2025-01-11 16:42 | XMS_ITS | Encounter Summary ---
Author Organization Healthcare Address [address] [place] [address] Care Team Providers Care Campus President Name Role Phone Bill Lamar MD Primary Care Provider [phone] Encounter Details Date Type Department Care Team (Late Contact Info) Description 07/30/2022 Orders Only External Location [address] [place] [address] Provider, External Social History Tobacco Use Types [...] Department Care Team (Late Contact Info) Description 02/19/2025 9:00 AM EST Ancillary Procedure [facility] [address] [place] [address] 02/19/2025 10:00 AM EST Office [facility] [address] [place] [address] Mariam Urban MD [address] [place] [address] 04/03/2025 9:00 AM EST Appointment [facility] Function Testing [address] [place] [address] 04/25/2025 11:20 AM EST Office Visit [facility] [place] [address] [facility], [address] [place] [address] Sara Johnson, PIT BOSS [address] [place] [address] 04/26/2025 11:10 AM EST Office Visit [facility]ties [address] [place] [address] 05/16/2025 2:00 PM EDT Office Visit [facility] [address] [place] [address] Marli Godoy MD [address] [place] [address] documented as of this encounter Procedures Procedure [...] documented as of this encounter Care Teams Campus President Relationship Specialty Start Date End Date Bill Lamar MD [address] [facility] [address] PCP - General 04/13/22 documented as of this encounter
--- OUTSIDE RECORDS SUMMARY | 2025-01-11 16:42 | XMS_ITS | Encounter Summary ---
Author Organization [employer] ([place], [place], [place], [place], [place]) Address [address] [place] [address] Care Team Providers Care Florist Manager Name Role Phone Unavailable Primary Care Provider Unavailabl e Encounter Details Date Type Department Care Team (Late st Contact Info) Description 10/06/2018 Transcribed Document [facility] [place] [facility] [place] [id number] ProviderLeyda MD [address] [place] [address] Social History Tobacco Use Types Packs/Day Years Used Date Smoking Tobacco: Never Assessed Comments Unknown Sex and Gender Information Value Date Recorded Sex Assigned at Not on file Legal Sex Female 6:21 PM CDT Gender Identity Not on file Sexual Orientation Not on file documented as of this encounter Miscellaneous Notes * Cerner Conversion Note - Historical ProviderMD - 10/06/2018 7:16 AM CDT DATE OF PROCEDURE: 09/29/2018 PREOPERATIVE DIAGNOSIS(ES): Reflux and hiatal hernia. POSTOPERATIVE DIAGNOSIS(ES): Reflux and hiatal hernia. PROCEDURE: 1. Laparoscopic repair of hiatal hernia with Bio-A surgical matrix 2. Laparoscopic Toupet fundoplication. SURGEON: Daniel Jang MD CAR PARKER: Marcel OPERATION/PROCEDURE DESCRIPTION: After obtaining informed consent, [...] M.D. Electronically signed by Ernesto Betancourt Conversion Motion Picture Printer Nargisner at 06/22/2022 9:38 AM CDT documented in this encounter Plan of Treatment Not on file documented as of this encounter Visit Diagnoses Not on filedocumented in this encounter
--- OUTSIDE RECORDS SUMMARY | 2025-01-11 16:42 | XMS_ITS | Encounter Summary ---
Author Organization Healthcare Address [address] [place] [address] Care Team Providers Care Core Sucker Name Role Phone Bill Lamar MD Primary Care Provider Encounter Details Date Type Department Care Team (Late Contact Info) Description 01/12/2024 Orders Only External Location [address] [place] [address] Provider, External Social History Tobacco Use Types [...] Description 02/19/2025 9:00 AM EST Ancillary Procedure [facility] [address] [place] [address] 02/19/2025 10:00 AM EST Office Visit [facility] [address] [place] [address] Mariam Urban MD [address] [place] [address] 04/03/2025 9:00 AM EST Appointment [facility] Function Testing [address] [place] [address] 04/25/2025 11:20 AM EST Office Visit [facility] [place] [address] [facility], [address] [place] [address] Sara Johnson, GYM TEACHER [address] [place] [address] 04/26/2025 11:10 AM EST Office Visit [facility] [address] [place] [address] 05/16/2025 2:00 PM EDT Office Visit [facility] [address] [place] [address] Marli Godoy MD [address] [place] [address] documented as of this encounter [...] documented as of this encounter Care Teams Core Sucker Relationship Specialty Start Date End Date Bill Lamar MD [address] [place] [address] PCP - General 04/13/22 documented as of this encounter
--- OUTSIDE RECORDS SUMMARY | 2025-01-11 16:42 | XMS_ITS | Encounter Summary ---
Author Organization [employer] ([place], [place], [place], [place], [place]) Address [address] [place] [address] Care Team Providers Care College Director Name Role Phone Unavailable Primary Care Provider Unavailabl e Encounter Details Date Type Department Care Team (Late st Contact Info) Description 09/30/2018 Transcribed Document [facility] Family Medicine [address] [place] [address] ProviderLeyda MD [address] [place] [address] Social History Tobacco Use Types Packs/Day Years Used Date Smoking Tobacco: Never Assessed Comments Unknown Sex and Gender Information Value Date Recorded Sex Assigned at Not on file Legal Sex Female 6:21 PM CDT Gender Identity Not on file Sexual Orientation Not on file documented as of this encounter Miscellaneous Notes * Cerner Conversion Note - Historical ProviderMD - 09/30/2018 2:00 AM CDT Assistant Media Planner Details Entered On: 09/30/2018 0:46 EDT Performed [...] EDT Electronically signed by Ernesto Betancourt Conversion Collection Systems Technician Cerner at 06/22/2022 9:28 AM CDT documented in this encounter Plan of Treatment Not on file documented as of this encounter Visit Diagnoses Not on filedocumented in this encounter
--- OUTSIDE RECORDS SUMMARY | 2025-01-11 16:42 | XMS_ITS | Encounter Summary ---
Author Organization [employer] ([place], [place], [place], [place], [place]) Address [address] [place] [address] Care Team Providers Care Ore Charger Name Role Phone Unavailable Primary Care Provider Unavailabl e Encounter Details Date Type Department Care Team (Late st Contact Info) Description 09/04/2019 Transcribed Document [facility] Family Medicine [facility] [place] [address] ProviderLeyda MD [address] [place] [phone] Social History Tobacco Use Types Packs/Day Years Used Date Smoking Tobacco: Never Assessed Comments Unknown Sex and Gender Information Value Date Recorded Sex Assigned at Not on file Legal Sex Female 6:21 PM CDT Gender Identity Not on file Sexual Orientation Not on file documented as of this encounter Miscellaneous Notes * Cerner Conversion Note - Historical ProviderMD - 09/04/2019 9:11 AM CDT Pre Procedure Adult Entered On: 09/04/2019 9:13 EDT Performed On: 09/04/2019 9:11 EDT by Seema Sheriff RN Height and Weight, Clinical Dosing Height Source : Stated Height Entry Format : [place] Height, Feet : 5 ft(Converted to: 152 cm, 60 Inch) Height, Inches : 1 Inch(Converted to: 0 ft 1 Inch, 2.54 cm) Clinical Height : 154.94 cm Weight Source : Standing scale Weight Entry Format : [place] Clinical Dosing Weight : 80.18 kg Weight, Pounds : 176.4 lb Body Surface Area (BSA) : 1.79 m2 Body Mass Index : 33.4 kg/m2 (HI) Dayhoit Body Weight : 47 kg Seema Sheriff RN - 09/04/2019 9:11 EDT Health Histories Smoking Status : Never (less than 100 in lifetime; none in last 30 days) Smokeless Tobacco Status : Never Implant/Device Type, Grinding And Spraying Supervisor and Model : wong Seema Sheriff RN - 09/04/2019 9:11 EDT [...] Seema Sheriff RN - 09/04/2019 9:11 EDT [place] Suicide Severity Rating Scale (C-SSRS) CSSRS Past [...] #2 Relationship : na Primary Language : Faroese Preferred Communication Mode : Verbal Communication Barrier : None Flakeboard Line Tender Needed : No Seema Sheriff RN - [...] Scale Risk Level : 25-45 Medium Risk [place] Fall Interventions : Bed in low position, [...]
--- OUTSIDE RECORDS SUMMARY | 2025-01-11 16:42 | XMS_ITS | Encounter Summary ---
Author Organization Healthcare Address [address] [place] [address] Care Team Providers Care Government Affairs Manager Name Role Phone Bill Lamar MD Primary Care Provider [phone] Encounter Details Date Type Department Care Team (Late Contact Info) Description 07/30/2022 Orders Only External Location [address] [place] [address] Provider, External Social History Tobacco Use Types [...] Description 02/19/2025 9:00 AM EST Ancillary Procedure [facility] [address], [address]nd [place] [address] 02/19/2025 10:00 AM EST Office Visit [facility] [address], [address]nd [place] [address] Mariam Urban MD [address] [place] [address] 04/03/2025 9:00 AM EST Appointment [facility] Pulmonary Function Testing [address] [place] [address] 04/25/2025 11:20 AM EST Office Visit [facility] [place] [address] [facility], [address] [place] [address] Sara Johnson, MOLECULAR GENETICIST [address] [place] [address] 04/26/2025 11:10 AM EST Office Visit [facility] Medicine Specialties [address], [address] [place] [address] 05/16/2025 2:00 PM EDT Office Visit [facility] Medicine Specialties [address], [address] [place] [address] Marli Godoy MD [address] [place] [address] documented as of this encounter [...] documented as of this encounter Care Teams Government Affairs Manager Relationship Specialty Start Date End Date Bill Lamar MD [address] [place] [address] PCP - General 04/13/22 documented as of this encounter
--- OUTSIDE RECORDS SUMMARY | 2025-01-11 16:42 | XMS_ITS | Encounter Summary ---
Author Organization [employer] ([place], [place], [place], [place], [place]) Address [address] [place] [address] Care Team Providers Care International Marketing Executive Name Role Phone Unavailable Primary Care Provider Unavailabl e Encounter Details Date Type Department Care Team (Late st Contact Info) Description 09/04/2019 Transcribed Document [facility] [place] [address] ProviderLeyda MD [address] [place] [phone] Social History Tobacco Use Types Packs/Day Years Used Date Smoking Tobacco: Never Assessed Comments Unknown Sex and Gender Information Value Date Recorded Sex Assigned at Not on file Legal Sex Female 6:21 PM CDT Gender Identity Not on file Sexual Orientation Not on file documented as of this encounter Miscellaneous Notes * Cerner Conversion Note - Leyda ProviderMD - 09/04/2019 9:00 AM CDT [facility] Alyssa PreOp Summary Primary Physician: ZINA STEELE MD-GAE Finalized Date/Time: 09/04/19 09:27:22 Pt. Name: MELINDA APONTE /Sex: 1975 Female Med Rec #: [id number] Physician: ZINA STEELE MD-GAE Financial #: [id number] Pt. Type: O Room/Bed: END/ Admit/Disch: 09/04/19 08:25:00 - Institution: [facility] PreOp Case Times Entry 1 In Preop 09/04/19 08:54:00 Ready for Holding n/a Room Patient Ready for 09/04/19 09:26:00 Surgery Patient Out of Preop 09/04/19 09:26:00 Patient Out of n/a Holding Room Last Modified By: Seema Sheriff RN 09/04/19 09:27:18 Finalized By: Seema Sheriff, RN Document Signatures Signed By: Seema Sheriff RN 09/04/19 09:27 Electronically signed by Serafin [facility] Conversion Cycling Instructor Cerner at 06/22/2022 9:18 AM CDT documented in this encounter Plan of Treatment Not on file documented as of this encounter Visit Diagnoses Not on filedocumented in this encounter
--- OUTSIDE RECORDS SUMMARY | 2025-01-11 16:42 | XMS_ITS | Encounter Summary ---
Author Organization Healthcare Address [address] [place] [address] Care Team Providers Care Art Museum Docent Name Role Phone Bill Lamar MD Primary Care Provider [phone] Encounter Details Date Type Department Care Team (Late Contact Info) Description 01/12/2024 Orders Only External Location [address] [place] [address] Provider, External Social History Tobacco Use Types [...] Description 02/19/2025 9:00 AM EST Ancillary Procedure [facility] [address], [address] [place] [address] 02/19/2025 10:00 AM EST Office [facility] [address], [address] [place] [address] Mariam Urban MD [address] [place] [address] 04/03/2025 9:00 AM EST Appointment P[facility] Pulmonary Function Testing [address] [place] [address] 04/25/2025 11:20 AM EST Office Visit [facility] [place] [address], [address] [place] [address] Sara Johnson, DURALUMIN MECHANIC [address] [place] [address] 04/26/2025 11:10 AM EST Office Visit [facility] Medicine Specialties [address], [address] [place] [address] 05/16/2025 2:00 PM EDT Office Visit [facility] Medicine Specialties [address], [address] [place] [address] Marli Godoy MD [address] [place] [address] documented as of this encounter [...] documented as of this encounter Care Teams Art Museum Docent Relationship Specialty Start Date End Date Bill Lamar MD [address] [place] [address] PCP - General 04/13/22 documented as of this encounter
--- OUTSIDE RECORDS SUMMARY | 2025-01-11 16:42 | XMS_ITS | Encounter Summary ---
Author Organization [employer] ([place], [place], [place], [place], [place]) Address [address] [place] [address] Care Team Providers Care Marketing Systems Analyst Name Role Phone Unavailable Primary Care Provider Unavailabl e Encounter Details Date Type Department Care Team (Late st Contact Info) Description 09/03/2019 Transcribed Document [facility] Family Medicine [facility] [place] [address] ProviderLeyda MD [address] [place] [phone] Social History Tobacco Use Types Packs/Day Years Used Date Smoking Tobacco: Never Assessed Comments Unknown Sex and Gender Information Value Date Recorded Sex Assigned at Not on file Legal Sex Female 6:21 PM CDT Gender Identity Not on file Sexual Orientation Not on file documented as of this encounter Miscellaneous Notes * Cerner Conversion Note - Historical ProviderMD - 09/03/2019 4:46 PM CDT Pre Procedure Adult Entered On: 09/03/2019 16:48 EDT Performed On: 09/03/2019 16:46 EDT by Vivian Torres RN Height and Weight, Clinical Dosing Height Source : Stated Height Entry Format : [place] Height, Feet : 5 ft(Converted to: 152 cm, 60 Inch) Height, Inches : 1 Inch(Converted to: 0 ft 1 Inch, 2.54 cm) Clinical Height : 154.94 cm [place] Body Weight : 47 kg Vivian Torres RN - 09/03/2019 16:46 EDT Health Histories Smoking Status : Never (less than 100 in lifetime; none in last 30 days) Smokeless Tobacco Status : Never Implant/Device Type, Office 365 Consultant and Model : Vivian Muller RN - 09/03/2019 16:46 EDT Social History (As Of: 09/03/2019 16:48:45 EDT) Tobacco: Never (less than 100 in lifetime) Smoking Status. Never Smokeless Tobacco Status. (Last Updated: 05/25/2018 13:10:12 EDT by KAMAAL MOISE RN) Alcohol: Alcohol Use History Yes. [...] Vivian Torres RN - 09/03/2019 16:46 EDT [place] Suicide Severity Rating Scale (C-SSRS) CSSRS Past [...] : na Primary Language : Citizen Of [place] Preferred Communication Mode : Verbal Communication Barrier : None Office Bookkeeper Needed : No Vivian Torres RN - [...] ABCs Fall Injury Risk Identification : None PLATA Hx Falls Immediate/Within 3 Months : No [place] Secondary Diagnosis : No PLATA Use of Ambulatory Aid : None PLATA IV Therapy or IV Access : Yes [place] Gait/Transferring : Normal, bedrest, immobile [place] Mental Status : Oriented to own ability [place] Fall Risk Score : 20 PLATA Fall Scale Risk Level : 0-24 Low Risk [place] Fall Interventions : Hourly comfort/safety rounds, Non-slip footwear, Reinforced to call for assistance before getting out of bed Vivian Torres RN - 09/03/2019 16:46 EDT documented in this encounter Plan of Treatment Not on file documented as of this encounter Visit Diagnoses Not on filedocumented in this encounter
--- OUTSIDE RECORDS SUMMARY | 2025-01-11 16:42 | XMS_ITS | Encounter Summary ---
Author Organization Healthcare Address [address] [place] [address] Care Team Providers Care Tile Conduit Layer Name Role Phone Bill Lamar MD Primary Care Provider [phone] Encounter Details Date Type Department Care Team (Late st Contact Info) Description 11/13/2024 Orders Only [facility] [place] [address] [facility], [address] [place] [address] Mitul Garza MD [address] [place] [address] Social History Tobacco Use Types [...] drink first t cyndie in the morning (EYE-APPLICATIONS ENGINEER MANUFACTURING) to steady your nerves or to get [...] Description 02/19/2025 9:00 AM EST Ancillary Procedure [facility] [address] [facility], [address] [place] [address] 02/19/2025 10:00 AM EST Office Visit [facility] [address] [facility], [address] [place] [address] Mariam Urban MD [address] [place] [address] 04/03/2025 9:00 AM EST Appointment [facility] Pulmonary Function Testing [address] [place] [address] 04/25/2025 11:20 AM EST Office Visit [facility] [place] [address] [facility], [address] [place] [address] Sara Johnson APRN [address] [place] [address] 04/26/2025 11:10 AM EST Office Visit [facility] [address] [facility], [address] [place] [address] 05/16/2025 2:00 PM EDT Office Visit [facility] [address], [address] [place] [address] Marli Godoy MD [address] [place] [address] documented as of this encounter [...] documented as of this encounter Care Teams Tile Conduit Layer Relationship Specialty Start Date End Date Bill Lamar MD [address] [place] [address] PCP - General 04/13/22 documented as of this encounter
--- OUTSIDE RECORDS SUMMARY | 2025-01-11 16:42 | XMS_ITS | Encounter Summary ---
Author Organization [employer] ([place], [place], [place], [place], [place]) Address [address] [place] [address] Care Team Providers Care Digital Hardware Design Engineer Name Role Phone Unavailable Primary Care Provider Unavailabl e Encounter Details Date Type Department Care Team (Late st Contact Info) Description 09/30/2018 Transcribed Document [facility] [place] [address] ProviderLeyda MD [address] [place] [phone] Social History Tobacco Use Types Packs/Day Years [...] Clark MD - 09/30/2018 1:42 PM CDT [address] [address] MELINDA APONTEJAHAIRA :1975 Visit Time:09/29/2018 Your Visit Summary Your Care Team Admitting Physician - SAMAN THOMPSON MD-JIMY Attending Physician - SAMAN THOMPSON MD-SUR Primary Care Physician - GONZALES AMADOR (REF), -HORTENCIA Referring Physician - SAMAN THOMPSON MD-SUR Your Diagnosis Gastro-esophageal reflux disease without esophagitis, Gastro-esophageal reflux disease without esophagitis These Are Your Goals to feel better Discharge Vitals Temperature 36.7 ??C Heart Rate (Monitored) 80 Respiratory Rate 16 Blood Pressure 118/62 What to do next Instructions From Your Care Team Discharge Follow Up Instructions: followup [id number] Activity: Discharge Activity: No heavy lifting over [...] made. Where: Bariatric Office - PHONE [address] [place] [address]- Follow Up with Follow up with primary [...] including vitamins, herbs, eye drops, creams, and lrju-wie-pxywegz medicines. ??? Previous problems your child or [...] 02/21/2006 Document Revised: 07/29/2016 Document Reviewed: 08/25/2015 [employer] Interactive Patient Education ?? 2019 [employer]. acetaminophen and hydrocodone (a SEET a MIN oh fen and genaro shannon KOE done) Hycet, Lorcet, [place], Verdrocet, Vicodin, Xodol, Zamicet What is the [...] may report side effects to FDA at 5-909-SIU-1018. What other drugs will affect acetaminophen and [...] affect acetaminophen and hydrocodone, including prescription and gugk-lqu-zsgtrke medicines, vitamins, and herbal products. Not all [...] to ensure that the information provided by [employer]. ('Mult[employer]') is accurate, up-to-date, and complete, but no guarantee is made to that effect. Drug information contained herein may be time sensitive. PriceMDs.com information has been compiled for use by healthcare practitioners and consumers in the [place] and therefore [employer]MDs.com does not warrant that uses outside of the [place] are appropriate, unless specifically indicated otherwise. PriceMDs[employer]com's drug information does not endorse drugs, diagnose patients or recommend therapy. Actionss drug information is an informational resource designed [...] effective or appropriate for any given patient. [employer] does not assume any responsibility for any aspect of healthcare administered with the aid of information [employer]MDs.com provides. The information contained herein is not intended to cover all possible uses, directions, precautions, warnings, drug interactions, allergic reactions, or adverse effects. If you have questions about the drugs you are taking, check with your doctor, nurse or pharmacist. Copyright 2671-9777 [facility]. Version: 15.. Revision Date: 01/09/2018.ondansetron (oral) (on NORBERTO se [...] may report side effects to FDA at 9-688-VYF-1184. What other drugs will affect ondansetron? Ondansetron [...] interact with ondansetron. This includes prescription and nuai-aqx-pvvpris medicines, vitamins, and herbal products. Give a [...] to ensure that the information provided by [employer]. ('[employer]') is accurate, up-to-date, and complete, but no guarantee is made to that effect. Drug information contained herein may be time sensitive. PriceMDs.com information has been compiled for use by healthcare practitioners and consumers in the [place] and therefore PriceMDs.com does not warrant that uses outside of the [place] are appropriate, unless specifically indicated otherwise. Actionss drug information does not endorse drugs, diagnose patients or recommend therapy. SureWaves drug information is an informational resource designed [...] effective or appropriate for any given patient. [employer]MD[employer] does not assume any responsibility for any aspect of healthcare administered with the aid of information [employer]MDs.com provides. The information contained herein is not intended to cover all possible uses, directions, precautions, warnings, drug interactions, allergic reactions, or adverse effects. If you have questions about the drugs you are taking, check with your doctor, nurse or pharmacist. Copyright 2424-6101 [employer]. Version: 13.01. Revision Date: 12/26/2015. Emergency Awareness [...] Assistance with quitting is available by contacting 9-083-ICUG-NOW. This is a free resource providing counseling, [...] Patient Name:HECTOR MELINDA GORAN I have received and understand this information and was given the opportunity to ask questions. Patient/Revenue Accountant Name: Patient/Revenue Accountant Signature: Relationship to Patient: Clinician/Hospital Revenue Accountant Signature: Date: documented in this encounter Plan of Treatment Not on file documented as of this encounter Visit Diagnoses Not on filedocumented in this encounter
--- OUTSIDE RECORDS SUMMARY | 2025-01-11 16:42 | XMS_ITS | Encounter Summary ---
Author Organization [employer] ([place], [place], [place], [place], [place]) Address [address] [place] [address] Care Team Providers Care Community Integration Specialist Name Role Phone Unavailable Primary Care Provider Unavailabl e Encounter Details Date Type Department Care Team (Late st Contact Info) Description 09/29/2018 Transcribed Document [facility] Family [place] [facility] [place] [address] ProviderLeyda MD [address] [place] [address] Social History Tobacco Use Types Packs/Day Years [...] APONTE /Sex: 1975 Female Med Rec #: [id number] Physician: SAMAN THOMPSON MD Financial #: [id number] Pt. Type: O Room/Bed: [facility] Admit/Disch: 09/29/18 11:27:00 - Institution: [facility] [place] PACU Case Times Entry 1 In PACU I 09/29/18 15:48:00 Ready for PACU 09/29/18 16:45:00 Discharge Discharge from PACU 09/29/18 17:10:00 I Last Modified By: Michelle Toribio Rn Patient Care Bedside 09/29/18 17:01:52 [facility] Main OR PACU Case Times Audit 09/29/18 17:17:13 Telephone Betting Clerk: SCOUT Modifier: [email or web address] <+> 1 Discharge from PACU I 09/29/18 17:01:52 Telephone Betting Clerk: SCOUT Modifier: [email or web address] <+> 1 Ready for PACU Discharge [facility] Main OR PACU Acuity Entry 1 Start Time 09/29/18 16:45:00 Stop Time 09/29/18 17:10:00 Acuity Level [facility] PACU Acuity I Last Modified By: Michelle Toribio Rn Patient Care Bedside 09/29/18 17:01:58 [facility] Main OR PACU Acuity Audit 09/29/18 17:17:22 Telephone Betting Clerk: SCOUT Modifier: [email or web address] <+> 1 Stop Time Finalized By: Michelle Toribio Rn Patient Care Bedside Document Signatures Signed By: Michelle Toribio Rn Patient Care Bedside 09/29/18 17:17 Electronically signed by Ernesto Betancourt Conversion Research Laboratory Technician Cerner at 06/22/2022 9:30 AM CDT documented in this encounter Plan of Treatment Not on file documented as of this encounter Visit Diagnoses Not on filedocumented in this encounter
--- OUTSIDE RECORDS SUMMARY | 2025-01-11 16:42 | XMS_ITS | Encounter Summary ---
Author Organization [employer] ([place], [place], [place], [place], [place]) Address [address] [place] [address] Care Team Providers Care Timber Hand Name Role Phone Unavailable Primary Care Provider Unavailabl e Encounter Details Date Type Department Care Team (Late st Contact Info) Description 09/04/2019 Transcribed Document [facility] [place] [address] ProviderLeyda MD [address] [place] [address] Social History Tobacco Use Types Packs/Day Years Used Date Smoking Tobacco: Never Assessed Comments Unknown Sex and Gender Information Value Date Recorded Sex Assigned at Not on file Legal Sex Female 6:21 PM CDT Gender Identity Not on file Sexual Orientation Not on file documented as of this encounter Miscellaneous Notes * Cerner Conversion Note - Leyda ProviderMD - 09/04/2019 10:12 AM CDT [facility] [place] [address] MELINDA APONTE :1975 Visit Time:09/04/2019 What to do next Follow-Up Appointments Follow Up with ZINA STEELE When Comments repeat EGD in 5 years biopsy report willl be mailed to you in 7-10 days Where: [address] [place] [address]- [employer] website (1) Medications What How Much When Instructions [...] activities are safe for you. ??? Take gzdx-lyn-bachowz and prescription medicines only as told by [...] 05/30/2001 Document Revised: 10/07/2017 Document Reviewed: 10/07/2017 [employer]onne[employer] Interactive Patient Education ?? 2020 bulletn.. Silveira's Esophagus Silveira's esophagus occurs when the [...] Tomatoes and foods made with tomatoes. ? [place] or spicy foods. ? Chocolate and peppermint. ??? Do not drink alcohol. General instructions ??? Take kerc-uhd-igiwjiq and prescription medicines only as told by [...] 05/13/2004 Document Revised: 06/19/2018 Document Reviewed: 06/19/2018 [employer] Interactive Patient Education ?? 2020 bulletn.. Emergency Awareness and Preventative Care [place] is [...] Assistance with quitting is available by contacting 9-795-LWMX-NOW. This is a free resource providing counseling, [...] was given the opportunity to ask questions. Patient/Branch Manager Trainee Name: Patient/Branch Manager Trainee Signature: Relationship to Patient: Clinician/Hospital Branch Manager Trainee Signature: Date: documented in this encounter Plan of Treatment Not on file documented as of this encounter Visit Diagnoses Not on filedocumented in this encounter
--- OUTSIDE RECORDS SUMMARY | 2025-01-11 16:42 | XMS_ITS | Encounter Summary ---
Author Organization [employer] ([place], [place], [place], [place], [place]) Address [address] [place] [address] Care Team Providers Care Gsa Coordinator Name Role Phone Unavailable Primary Care Provider Unavailabl e Encounter Details Date Type Department Care Team (Late st Contact Info) Description 09/04/2019 Transcribed Document [facility] Family Medicine [facility] [place] [address] ProviderLeyda MD [address] [place] [address] [phone] Social History Tobacco Use Types Packs/Day Years Used Date Smoking Tobacco: Never Assessed Comments Unknown Sex and Gender Information Value Date Recorded Sex Assigned at Not on file Legal Sex Female 6:21 PM CDT Gender Identity Not on file Sexual Orientation Not on file documented as of this encounter Miscellaneous Notes * Cerner Conversion Note - Leyda ProviderMD - 09/04/2019 9:45 AM CDT [facility] PACU Summary Primary Physician: ZINA STEELE MD-GAE Finalized Date/Time: 09/04/19 10:20:18 Pt. Name: MELINDA APONTE /Sex: 1975 Female Med Rec #: [id number] Physician: ZINA STEELE MD-GAE Financial #: [id number] Pt. Type: O Room/Bed: END/ Admit/Disch: 09/04/19 08:25:00 - Institution: [facility] PACU Case Times Entry 1 In PACU I 09/04/19 09:56:00 Ready for PACU 09/04/19 10:20:00 Discharge Discharge from PACU 09/04/19 10:20:00 I Last Modified By: Heather Hernandez RN 09/04/19 10:20:14 ERNESTO Endo PACU Case Times Audit 09/04/19 10:20:14 Long Term: [id number] Modifier: [id number] <+> 1 Ready for PACU Discharge <+> 1 Discharge from PACU I Finalized By: Heather Hernandez, RN Document Signatures Signed By: Heather Hernandez RN 09/04/19 10:20 Electronically signed by Ernesto Betancourt Conversion Operations Research Director Cerner at 06/22/2022 9:19 AM CDT documented in this encounter Plan of Treatment Not on file documented as of this encounter Visit Diagnoses Not on filedocumented in this encounter
--- OUTSIDE RECORDS SUMMARY | 2025-01-11 16:42 | XMS_ITS | Encounter Summary ---
Author Organization [employer] ([place], [place], [place], [place], [place]) Address [address] [place] [address] Care Team Providers Care Plc Engineer Name Role Phone Unavailable Primary Care Provider Unavailabl e Encounter Details Date Type Department Care Team (Late st Contact Info) Description 09/29/2018 Transcribed Document [facility] Family Medicine [address] [place] [address] ProviderLeyda MD [address] [place] [address] [phone] Social History Tobacco Use Types Packs/Day Years Used Date Smoking Tobacco: Never Assessed Comments Unknown Sex and Gender Information Value Date Recorded Sex Assigned at Not on file Legal Sex Female 6:21 PM CDT Gender Identity Not on file Sexual Orientation Not on file documented as of this encounter Miscellaneous Notes * Cerner Conversion Note - Leyda ProviderMD - 09/29/2018 1:10 PM CDT [facility] PreOp Summary Primary Physician: SAMAN THOMPSON MD Finalized Date/Time: 09/29/18 14:31:44 Pt. Name: MELINDA APONTE /Sex: 1975 Female Med Rec #: [id number] Physician: SAMAN THOMPSON MD Financial #: [id number] Pt. Type: O Room/Bed: [facility] Admit/Disch: 09/29/18 11:27:00 - Institution: [facility] PreOp Case Times Entry 1 In Preop 09/29/18 11:40:00 Ready for Holding n/a Room Patient Ready for 09/29/18 12:26:00 Surgery Patient Out of Preop 09/29/18 14:19:00 Patient Out of n/a Holding Room Last Modified By: ALYSE MIKE 09/29/18 14:31:43 [facility] PreOp Case Times Audit 09/29/18 14:31:43 Manager Engine: HILLARY Modifier: [email or web address] <+> 1 Patient Out of Preop Finalized By: ALYSE MIKE Document Signatures Signed By: ALYSE MIKE 09/29/18 14:31 documented in this encounter Plan of Treatment Not on file documented as of this encounter Visit Diagnoses Not on filedocumented in this encounter
--- OUTSIDE RECORDS SUMMARY | 2025-01-11 16:42 | XMS_ITS | Encounter Summary ---
Author Organization [employer] ([place], [place], [place], [place], [place]) Address [address] [place] [address] Care Team Providers Care Glass Decorator Name Role Phone Unavailable Primary Care Provider Unavailabl e Encounter Details Date Type Department Care Team (Late st Contact Info) Description 09/30/2018 Transcribed Document [facility] [place] [address] [place] [address] ProviderLeyda MD [address] [place] [address] Social History Tobacco Use Types Packs/Day Years [...] EDT Electronically signed by Ernesto Betancourt Conversion Staff Command And Control Officer Hali at 06/22/2022 9:16 AM CDT documented in this encounter Plan of Treatment Not on file documented as of this encounter Visit Diagnoses Not on filedocumented in this encounter
--- OUTSIDE RECORDS SUMMARY | 2025-01-11 16:42 | XMS_ITS | Encounter Summary ---
Author Organization Healthcare Address [address] [place] [address] Care Team Providers Care Refrigerator Repairman Name Role Phone Bill Lamar MD Primary Care Provider [phone] Encounter Details Date Type Department Care Team (Late st Contact Info) Description 11/13/2024 Orders Only [facility] [place] [address] [place] [address] Brittaney Morales RN - Outpatient Center Acute [...] first t cyndie in the morning (EYE-DIRECTOR RADIO) to steady your nerves or to get [...] Description 02/19/2025 9:00 AM EST Ancillary Procedure [place] [id number], [address] [place] [phone] 02/19/2025 10:00 AM EST Office Visit [address], [address] [place] [phone] Mariam Urban MD [address] [place] [address] 04/03/2025 9:00 AM EST Appointment [facility] Pulmonary Function Testing [address] [place] [address] 04/25/2025 11:20 AM EST Office Visit [facility] [place] [address] [facility], [address] [place] [phone] Sara Johnson APRN [address] [place] [phone] 04/26/2025 11:10 AM EST Office Visit [place] [id number], [address] [place] [address] 05/16/2025 2:00 PM EDT Office Visit [facility] [address] [place] [address] Marli Godoy MD [address] [place] [address] documented as of this encounter [...] documented as of this encounter Care Teams Refrigerator Repairman Relationship Specialty Start Date End Date Bill Lamar MD [address] [place] [address] PCP - General 04/13/22 documented as of this encounter
--- OUTSIDE RECORDS SUMMARY | 2025-01-11 16:42 | XMS_ITS | Encounter Summary ---
Author Organization [employer] ([place], [place], [place], [place], [place]) Address [address] [place] [address] Care Team Providers Care Staff Writer Name Role Phone Unavailable Primary Care Provider Unavailabl e Encounter Details Date Type Department Care Team (Late st Contact Info) Description 09/29/2018 Transcribed Document [facility] [place] [address] ProviderLeyda MD [address] [place] [id number] Social History Tobacco Use Types Packs/Day Years [...] 09/29/2018 2:43 PM CDT E Main OR IntraOp Summary Primary Physician: SAMAN THOMPSON MD Finalized Date/Time: 09/29/18 15:47:14 Pt. Name: HECTOR MELINDA GORAN /Sex: 1975 Female Med Rec #: [id number] Physician: SAMAN THOMPSON MD Financial #: [id number] Pt. Type: O Room/Bed: [facility]/ Admit/Disch: 09/29/18 11:27:00 - [place] [facility] [place] Attendance Entry 1 Entry 2 Entry 3 Case Attendee DONNA, SAMAN, MD ZARAK, NATE, MD MYRON, STEPHANIE A, NA Role Performed Surgeon/Proceduralist, Surgeon/Proceduralist, CONCRETE POURER/Nurse Pediatric Immunologist First Second Time In 09/29/18 14:23:00 09/29/18 14:23:00 09/29/18 14:23:00 Time Out 09/29/18 15:47:00 09/29/18 15:47:00 09/29/18 15:25:00 Procedure Hernia Repair Hernia Repair Hernia Repair Paraesophageal Paraesophageal Paraesophageal Laparoscopi Laparoscopi Laparoscopi Other Attendee Superficial Wound Closed By: Last Modified By: ALPHONSE PERSON, ALPHONSE PRICE, ALPHONSE PRICE, KOLE 09/29/18 15:47:11 09/29/18 15:47:11 09/29/18 15:26:01 Entry 4 Entry 5 Entry 6 Case Attendee ALPHONES PERSON, Angelia Mejia, Scrub JAMIE CAST, Tech Workplace Relations Adviser Role Performed Claims Customer Service Representative, First Scrub, First Scrub, Second Time In [...] Entry 8 Entry 9 Case Attendee LENNY CAHPIN, Fransisco Breaux, RN KEVON HINES V, CONCRETE POURER CARE Role Performed Sewing Machine Operator Zipper, Ancillary Claims Customer Service Representative, Second CONCRETE POURER/Nurse Pediatric Immunologist Time In 09/29/18 14:23:00 09/29/18 14:55:00 09/29/18 15:25:00 Time Out 09/29/18 15:47:00 09/29/18 15:12:00 09/29/18 15:47:00 Procedure Hernia Repair Hernia Repair Hernia Repair Paraesophageal Paraesophageal Paraesophageal Laparoscopi Laparoscopi Laparoscopi Other Attendee Superficial Wound Closed By: Last Modified By: ALPHONSE PERSON, ALPHONSE PRICE, ALPHONSE PRICE RN 09/29/18 15:47:11 09/29/18 15:13:17 09/29/18 15:47:11 [facility] IntraOp Case Attendance Audit 09/29/18 15:47:11 Flume Ride Operator: TIP Modifier: [email or web address] 1 <+> Time Out [...] Procedure Hernia Repair Paraesophageal Laparoscopi 09/29/18 15:26:01 Flume Ride Operator: [email or web address] Modifier: [email or web address] 3 <+> Time Out 3 <*> Procedure Hernia Repair Paraesophageal Laparoscopi <+> 9 Case Attendee <+> 9 Role Performed <+> 9 Time In <+> 9 Procedure 09/29/18 15:13:17 Flume Ride Operator: [email or web address] Modifier: [email or web address] 1 <*> Procedure Hernia Repair [...] [facility] IntraOp Case Times Audit 09/29/18 15:47:10 Flume Ride Operator: [email or web address] Modifier: [email or web address] <+> 1 Out Room Time <+> 1 Stop Time 09/29/18 15:41:42 Flume Ride Operator: [email or web address] Modifier: [email or web address] <+> 1 Stop Time [facility] IntraOp Cautery Entry 1 ESU Identification Cautery Type Monopolar ESU ID Number [id number] ID Type Hospital Number Cautery Settings Cut [...] notified Counts Performed By Count Performed By Mayers, Angelia R., Scrub (Scrub) Tech Count Performed By ALPHONSE PERSON RN (RN) Last Modified By: ALPHONSE PERSON RN 09/29/18 15:33:34 [facility] IntraOp Counts Final Audit 09/29/18 15:33:34 Flume Ride Operator: TIP Modifier: TIP 1 <*> Procedure Hernia [...] Dressing Item 2x2's Applied By Angelia Mayers Workplace Relations Adviser Other Comments 2X2 COVAERMS TO TROCAR SITES [...] RN 09/29/18 14:47:50 [facility] IntraOp General Case Rn New Grad 1 Case Information OR OR 03 SJE [...] Other Implant TISSUE REINF FLAT SHT Identification [id number] Description Implant Quantity 1 Implant Site OPSITE Implant [id number] Identification Serial Number Implant [employer]:Med Prdt Identification Clinical Research Manager Name: Implant [id number] Identification Catalog Number Implant Has an Yes Expiration Date Implant Expiration 01/04/21 Date Tissue Implant Last Modified By: ALPHONSE PEROSN RN 09/29/18 14:49:07 [facility] IntraOp Intraoperative Assessment [...] Intra Op Sign Out Audit 09/29/18 15:47:07 Flume Ride Operator: TIP Modifier: [email or web address] <+> 1 RN Sign [...] Modified By: ALPHONSE PERSON RN 09/29/18 14:49:51 SJJosef IntraOp Surgical Procedures Audit 09/29/18 15:41:43 Flume Ride Operator: TIP Modifier: TIP <+> 1 Stop SJE [...] RN 09/29/18 15:47 Electronically signed by Serafin [facility] Conversion Laundry Washer Cerner at 06/22/2022 9:32 AM CDT documented in this encounter Plan of Treatment Not on file documented as of this encounter Visit Diagnoses Not on filedocumented in this encounter
--- OUTSIDE RECORDS SUMMARY | 2025-01-11 16:42 | XMS_ITS | Clinical Summary ---
Author Organization [employer] Address [address] [place] [address] Care Team Providers Care Direct Sales Consultant Name Role Phone Ward Somers MD Unavailable [phone] Bill Lamar MD Primary Care Provider [phone] Allergies Active Allergy Reactions Criticality Noted Date Comments Lamotrigine Hives,Itching,Palpit atio ns High 08/31/2021 Other Reaction(s): Not available Keener Hives Low 10/28/2021 Other Reaction(s): Not available, Other - please document in the comment field Swollen neck Swollen neck Medications acetaminophen (Tylenol 8 Hour) 650 MG ER tablet Take 650 mg by mouth every 8 (eight) hours if needed. Active Collagen-Arnold- Hyaluronic Acid ([employer] 40-5-3.3 MG tablet Active Cequa 0.09 % [...] Electronically Signed on04/29/2023 12:16 PEPE DUFF MDBANNER Pepe Green MD ENDOSCOPY PROCEDURE ORDERABLE S Final Result from Last 3 Months or Most Recently Relevant to Health Maintenance Insurance [facility] Care Teams Direct Sales Consultant Relationship Specialty Start Date End Date Bill Lamar MD [address] [facility] [address] [place] [address] PCP - General Internal Medicine 07/07/22 Ward Somers MD [address] [facility] [place] [address] Referring Physician Gastroenterology 07/07/22
--- OUTSIDE RECORDS SUMMARY | 2025-01-11 16:42 | XMS_ITS | Clinical Summary ---
Author Organization [facility] Address [address] [place] [address] Care Team Providers Care Machine Whitener Name Role Phone Bill Lamar MD Primary Care Provider [phone] Allergies Active Allergy Reactions Criticality Noted Date Comments Empagliflozin Anxiety Low 01/02/2025 Lamotrigine Hives,Palpitations,I tchi ng,Other - please document in the comment field High 11/12/2013 Other Reaction(s): Not available Levofloxacin Nausea,Other - pleas e document in the comment field,Palpitations,Vomit ing Low 11/28/2023 [place] Other - please docum ent in the [...] by mouth 1 (one) time each day. 023 Active colchicine (Colcrys) 0.6 MG tablet Active ondansetron (Zofran) 4 MG tablet Active promethazine (Phenergan) 25 MG tablet Take 1 tablet (25 mg) by mouth every 8 (eight) hours if needed. 024 Active Motegrity 2 MG tablet Take 1 tablet (2 mg) by mouth 1 (one) time each day. 024 Active Voquezna 20 MG tablet Take 1 tablet by mouth 1 time each day. 025 Active acetaminophen (Tylenol) 500 MG tablet Take 2 tablets by mouth every 6 hours as needed. Active polyethylene glycol (Miralax) 17 g packet Take 17 g by mouth daily. Active hyoscyamine (Levsin) 0.125 MG SL tablet Active carvedilol (Coreg) 3.125 MG tablet Take 1 tablet by mouth 2 times a day. Active glucosamine-chondroi tin 500-400 MG tablet Take 1 tablet by mouth 3 times a day. Active sacubitril-valsartan (Entresto) 24-26 MG tablet Take 1 tablet by mouth 2 times a day. 60 tablet 5 025 Active eplerenone (Inspra) 25 MG tablet Take 1 tablet by mouth daily. 30 tablet 5 Active azelastine (Astelin) 0.1 % nasal spray ADMINISTER 2 SPRAYS INTO EACH NOSTRIL EVERY 12 HOURS Active clobetasol (Temovate) 0.05 % cream APPLY TOPICALLY TO THE AFFECTED AREA AT BEDTIME EVERY NIGHT Active colestipol (Colestid) 1 g tablet Take 1 tablet by mouth twice a day. Active fluticasone (Flonase) 50 MCG/ACT nasal spray shake liquid and use 2 sprays in each nostril daily Active estradiol (Estrace) 2 MG tablet Active estradiol (Vagifem) 10 MCG tablet vaginal tablet Activ e nitroglycerin (Sohail-Bid) 2 % ointmentIndications: Raynaud's disease without gangrene,Limited systemic sclerosis (CMS/HCC) Place 0.5 inches on the skin 2 times a day as needed (Raynauds). 30 g 5 025 Active Magnesium Oxide -Mg Supplement 500 MG capsuleIndications:C onstipation, unspecified constipation type Take 500 mg by mouth 2 times a day as needed (constipation ). 60 capsule 5 025 2025 Active hydrocortisone (Anusol-HC) 2.5 % rectal creamIndications:Hem orrhoids, unspecified hemorrhoid type Apply small amount to hemorrhoids up to 3 times daily after wiping and using witch jemima for 7 days when hemorrhoids inflamed. 28 g 5 Active nutritional drink (Boost Plus) liquid liquidIndications:Dy sphagia, unspecified type Take 237 mL by mouth 3 times a day. 12589 mL 11 2025 Active hydroxychloroquine (Plaquenil) 200 MG tabletIndications:Li mited systemic sclerosis (CMS/HCC) Take 1 tablet by mouth 2 times a day. 180 tablet 1 Active hydrocortisone 2.5 % cream Apply 1 Application topically 2 times a day. Active LORazepam (Ativan) 1 MG tabletIndications:Li mited systemic sclerosis (CMS/HCC),Dysphagia, pharyngoesophageal phase Take 1 tablet by mouth daily. 30 tablet 1 Active dapagliflozin (Farxiga) 10 MG tablet Take 1 tablet by mouth daily. Active Magnesium 100 MG capsule magnesium 500MG DAILY 2024 Discontinued hydroxychloroquine (Plaquenil) 200 MG tablet 2024 Discontinued( Reorder) LORazepam (Ativan) 1 MG tablet Take 1 tablet by mouth daily. 2024 Discontinued( Reorder) dapagliflozin (Farxiga) 10 MG tablet Take 1 tablet by mouth daily. 30 tablet 5 025 2024 Discontinued( Side effects) nutritional drink (Boost Plus) liquid liquid Take 237 mL by mouth 3 times a day. 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 Abdominal bloating 01/15/2024 Abdominal pain 01/15/2024 Chronic constipation 01/15/2024 Nausea 01/15/2024 Diverticulosis large intesti ne w/o perforation or abscess w/o bleeding 01/09/2024 Dysphagia, pharyngoesophageal phase 12/22/2023 Anxiety 09/16/2023 Dysphasia 09/16/2023 Gastroesophageal reflux disease with esophagitis 09/16/2023 Hepatitis C virus infection 09/16/2023 Raynaud disease 09/01/2023 Dry eye syndrome 01/17/2023 Left bundle branch block (LBBB) 01/17/2023 Myositis 01/17/2023 Gastroparesis 03/26/2022 Dry eyes 09/01/2021 Dry mouth 09/01/2021 Fibromyalgia 09/01/2021 Gastroesophageal reflux disease without esophagi tis 09/01/2021 Impaired cognition 09/01/2021 Malaise and fatigue 09/01/2021 Raynaud's phenomenon with gangrene 09/01/2021 Sleep disturbance 09/01/2021 Telangiectasias 09/01/2021 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 [place] [address] Brittaney Morales RN 01/08/2025 4:00 PM EST Office Visit [facility] [address], [address] [place] [phone] Mitul Garza MD Systolic dysfunction, left ventricle (Primary Dx) 01/08/2025 Travel 01/07/2025 Travel 12/31/2024 Orders Only [facility] [address] [place] [address] Sony Buck [employer] systemic sclerosis (CMS/HCC) (Primary Dx); Dysphagia, pharyngoesophageal phase 12/25/2024 10:00 AM EDT Office Visit [facility] [address], [address] [place] [address] Sara Johnson APRN HFrEF (heart failure with reduced ejection fraction) (Primary Dx); NICM (nonischemic cardiomyopathy) ([facility]); Iron deficiency anemia, unspecified iron deficiency anemia type 12/24/2024 Travel 12/22/2024 2:46 PM EDT - 12/22/2024 11:59 PM EDT Hospital Encounter [facility] [address] [place] [address] Iron deficiency anemia, unspecified iron deficiency anemia type (Primary Dx); Acute on chronic systolic heart failure Discharge Disposition: Home or Self Care 12/22/2024 Travel 12/18/2024 2:30 PM EDT Office Visit [facility] Medicine Specialties [address], [address] [place] [address] Elena Phillips APRN Constipation, unspecified constipation type (Primary Dx); Hemorrhoids, unspecified hemorrhoid type; Dysphagia, unspecified type 12/18/2024 Travel 12/15/2024 3:00 PM EDT - 12/15/2024 11:59 PM EDT Hospital Encounter [facility] [address] [place] [address] Iron deficiency anemia, unspecified iron deficiency anemia type (Primary Dx); Acute on chronic systolic heart failure Discharge Disposition: Home or Self Care 12/15/2024 Travel 12/14/2024 Travel 12/08/2024 2:25 PM EDT - 12/08/2024 11:59 PM EDT Hospital Encounter [facility] [address] [place] [address] Iron deficiency anemia, unspecified iron deficiency anemia type (Primary Dx); Acute on chronic systolic heart failure Discharge Disposition: Home or Self Care 12/08/2024 Travel 11/30/2024 3:00 PM EDT - 11/30/2024 11:59 PM EDT Hospital Encounter [facility] [address] [address] Iron deficiency anemia, unspecified iron deficiency anemia type (Primary Dx); Acute on chronic systolic heart failure ([facility]/HCC) Discharge Disposition: Home or Self Care 11/30/2024 Travel 11/29/2024 Telephone [facility] [address] [address] Aisha Dangelo, TECHNICAL SALES ASSOCIATE, DNP 11/28/2024 Orders Only [facility] [place] [address] [place] [address] Brittaney Morales, RN 11/27/2024 Travel 11/13/2024 Orders Only [facility] [place] [address] [place] [address] Brittaney Morales, jack setter on chronic systolic heart failure (CMS/HCC) (Primary Dx); Iron deficiency anemia, unspecified iron deficiency anemia type 11/13/2024 Orders Only [facility] [place] [address] [place] [address] Mitul Garza MD 10/31/2024 Orders Only [facility] [address] [place] [address] Brittaney Morales, RN 10/31/2024 Telephone [facility] [address] [facility] [place] [address] Brittaney Morales, RN 10/26/2024 10:10 AM EDT Consult [facility]ties [address] [place] [address] Sony Buck, [employer] systemic sclerosis (CMS/HCC) (Primary Dx); Dysphagia, pharyngoesophageal phase; Raynaud's disease without gangrene 10/26/2024 Travel 10/25/2024 Telephone [facility] [address] [place] [address] Mitul Garza MD [facility] Women's Health requesting cardiac clearance 10/19/2024 Travel 10/18/2024 11:27 AM EDT - 10/18/2024 11:59 PM EDT Hospital Encounter [facility] [address] [place] [address] Chronic heart failure, unspecified heart failure type (CMS/HCC); Bradycardia Discharge Disposition: Home or Self Care 10/18/2024 Travel 10/17/2024 Travel 10/17/2024 Telephone [facility] [address] [place] [address] Madhuri Brand RN 10/16/2024 10:00 AM EDT Office Visit [facility] [place] [address], [address] [place] [address] Sara Johnson APRN HFrEF (heart failure with reduced ejection fraction) ([facility]) (Primary Dx); Iron deficiency anemia, unspecified iron deficiency anemia type; NICM (nonischemic cardiomyopathy) ([facility]); Bradycardia 10/16/2024 Travel 10/12/2024 Travel from Last 3 Months Immunizations Immunization Administration Dates Next Due Influenza, injectable, MDCK, preservative free, quadrivalent 01/23/2023,01/19/2022 Influenza, seasonal, injectable, preservative fr ee 12/24/2023 Family History Medical History Relation Name Comments Obesity Brother Abnormal EKG Father Guin Craft Arrhythmia Father Mc Craft Arthritis Father Guin Craft Atrial fibrillation Father Guin Craft Heart disease Father Guin Craft Obesity Father Guin Craft Arrhythmia Father's Brother Victor Manuel Craft Heart attack Father's Brother Victor Manuel Craft Autoimmune disease Father's Sister 1 Nessa Valle Heart attack Father's Sister 1 Nessa Valle Arrhythmia Father's Sister 2 Nessa Valle Anemia Maternal Grandmother Josi Mancini Breast cancer Maternal Grandmother Josi Mancini Cancer Maternal Grandmother Josi Mancini Anemia Mother Rohini Woody Arthritis Mother Rohini Elpidioft Heart disease Mother Rohini Woody Heart failure Mother Rohini Woody Hypertension Mother Rohini Woody Kidney disease Mother Rohini Elpidioft Obesity Mother Rohini Elpidioft Osteoarthritis Mother Rohini Elpidioft Stroke Mother Rohini Elpidioft Sudden Mother Rohini Elpidioft Thyroid disease Mother Rohini Woody Breast cancer Mother's Sister Cancer Mother's Sister Heart attack Paternal Grandfather Diabetes Paternal Grandmother Izabel Magallanesayden Diabetes type II Paternal Grandmother Izabel Magallanesayden Relation Name Status Comments Brother Alive Father Mc Craft Alive Father's Brother Victor Manuel Craft Alive Father's Sister 1 Nessa Valle Alive Father's Sister 2 Nessa Valle Alive Maternal Grandmother Josi Mancini Mother Rohini Mckay Mother's Sister Alive Paternal [...] drink first t cyndie in the morning ([employer]IV[employer]) to steady your nerves or to get [...] Pulse 81 01/08/2025 5:25 PM EST Temperature 36.4 C (97.5 F) 12/22/2024 2:46 PM EDT Respiratory Rate 15 01/08/2025 4:18 PM EST Oxygen Saturation 96% 12/22/2024 2:46 PM EDT Inhaled Oxygen Concentration - - Weight 82 kg (180 lb 12.4 oz) 01/08/2025 4:18 PM EST Height 154.9 cm (5' 1 ) 01/08/2025 4:18 PM EST Body Mass Index 34.16 01/08/2025 4:18 PM EST Plan of Treatment Upcoming Encounters Date Type Department Care Team (Late st Contact Info) Description 02/19/2025 9:00 AM EST Ancillary Procedure [facility] Specialties [address], [address] [place] [phone] 02/19/2025 10:00 AM EST Office Visit [facility] Medicine [facility] [address], [address] [place] [phone] Mariam Urban MD [address] [place] [address] 04/03/2025 9:00 AM EST Appointment [facility] Function Testing [address] [place] [address] 04/25/2025 11:20 AM EST Office Visit [facility] [address], [address] [place] [address] Sara Johnson, TECHNICAL SALES ASSOCIATE [address] [place] [address] 04/26/2025 11:10 AM EST Office Visit [facility]ties [address], [address] [place] [phone] 05/16/2025 2:00 PM EDT Office Visit [facility]ties [address], [address] [place] [address] Marli Godoy MD [address] [place] [address] Health Maintenance Due Date Last Done Comments [facility]-/Child/Adol SDOH Screenings 1973 [facility]- SDOH Screenings 1991 [facility]-Adult SDOH Screenings 1991 [facility]-DTaP,Tdap,and Td Vaccines (1 - Tdap) 01/31/1992 [facility]-Hepatitis A Vaccines (1 of 2 - Risk 2-dose series) 01/31/1992 [facility]-Hepatitis B Vaccines (1 of 3 - 19+ 3-dose series) 01/31/1992 [facility]-Pneumococcal Vaccine: 50+ Years (1 of 2 - PCV) 01/31/1992 CT Colonography 2018 Colonoscopy 2018 FIT-DNA 2018 FIT 2018 FOBT 2018 Sigmoidoscopy 2018 [facility]-Colorectal Cancer Screening 2018 [facility]-Zoster Vaccines (1 of 2) 2023 [facility]-Influenza Vaccine (#1) 11/05/202412/23, 01/23/2023, 01/19/2022 [facility]-Breast Cancer Screening 06/15/202506/05, 06/16/2023, 04/13/2022 [facility]-Depression Screening 01/08/2026 01/08/2025, 1106/2024 TLW-DYEMT-19 Vaccine Completed 12/24/2023, 01/23/2023, 12/12/2021, Additional history exists [facility]-HIV Screening Completed 10/06/2024 [facility]-Obesity Intervention Completed 025, 12/25/2024, 12/18/2024, Additional history exists HPV Vaccines Aged Out [...] Procedure Name Priority Date/Time Associated Diagnosis Comments BASIC METABOLIC PANEL, PLASMA Routine 12/22/2024 11:45 AM EDT CBC WITH AUTO DIFFERENTIAL Routine 11/30/2024 3:44 [...] BLOOD STAT 10/18/2024 11: 49 AM EDT ED HIV 1/2 ANTIBODY/ANTIGEN SCREEN WITH REFLEX TO HIV I/II DIFFERENTIATION STAT 10/06/2024 10:03 AM EDT MAMMOGRAPHY BREAST SCREENING TOMOSYNTHESIS BILATERAL Routine 04/13/2022 4:52 PM EST Visit for screening mammogram from Last 3 Months or Most Recently Relevant to Health Maintenance Results * Basic Metabolic Panel, Plasma (12/22/2024 11:45 AM EDT) External Glucose 101 EXTERNAL LAB Comment:High External BUN 9 EXTERNAL LAB External Creatinine Blood 1 mg/dL EXTERNAL LAB External UN/Creat Ratio (UC) n/a EXTERNAL LAB External Sodium (Na) 136 mEq/L EXTERNAL LAB External Potassium (K) 4.1 EXTERNAL LAB External Chloride (Cl) 102 EXTERNAL LAB External Carbon Dioxide (CO2) 26 EXTERNAL LAB External Anion Gap (AG) 12.1 EXTERNAL LAB External Calcium (Ca) 9.0 EXTERNAL LAB External Estimated GFR 58 EXTERNAL LAB Comment:low External EGFR (If AFR/AM) 71 EXTERNAL LAB Blood Venous blood specimen / Unknown 12/22/2024 11:45 AM EDT us Historical Provider LAB BLOOD ORDERABLES Final R esult Performing Organization Address City/[facility]/ZIP Co de Phone Number EXTERNAL LAB * Iron and TIBC (11/30/2024 3:44 PM EDT) Pathologist [facility] Iron, Plasma 89 30 - 160 ug/dL 11/30/2024 4:26 PM EDT [facility] Transferrin, Plasma 308 200 - 360 mg/dL 11/30/2024 4:26 PM EDT [facility] Total Iron Binding Capacity, Plasma 385 240 - 450 ug/mL 11/30/2024 4:26 PM EDT [facility] Transferrin Saturation 23 14 - 50 % 11/30/2024 4:26 PM EDT [facility] Blood Venous blood specimen / Unknown Venipuncture / Unknown 11/30/2024 3:44 PM EDT 11/30/2024 3:52 PM EDT us Mitul Garza MD LAB BLOOD ORDERABLES Final Res ult Performing Organization Address City/[facility]/ZIP Co de Phone Number [facility] [address] [place] [address] * (ABNORMAL) CBC and differential (11/30/2024 3:44 PM EDT) [facility] WBC Count 6.73 3.70 - 10.30 10*3/uL LAB HEMATOLOGY METHOD 11/30/2024 4:10 PM EDT [facility] RBC Count 3.69(L) 3.90 - 5.20 10*6/uL LAB HEMATOLOGY METHOD 11/30/2024 4:10 PM EDT [facility] HGB 11.3 11.2 - 15.7 g/dL LAB HEMATOLOGY METHOD 11/30/2024 4:10 PM EDT [facility] HCT 34.8 34.0 - 45.0 % LAB HEMATOLOGY METHOD 11/30/2024 4:10 PM EDT [facility] Platelet Count 257 155 - 369 10*3/uL LAB HEMATOLOGY METHOD 11/30/2024 4:10 PM EDT [facility] MCV 94 79 - 98 fL LAB HEMATOLOGY METHOD 11/30/2024 4:10 PM EDT [facility] MCH 30.6 26.0 - 32.0 pg LAB HEMATOLOGY METHOD 11/30/2024 4:10 PM EDT [facility] MCHC 32.5 30.7 - 35.5 g/dL LAB HEMATOLOGY METHOD 11/30/2024 4:10 PM EDT [facility] RDW 13.3 11.5 - 14.5 % LAB HEMATOLOGY METHOD 11/30/2024 4:10 PM EDT [facility] MPV 10.4 8.8 - 12.5 fL LAB HEMATOLOGY METHOD 11/30/2024 4:10 PM EDT [facility] nRBC 0.0 <=0.0 per 100 WBCs LAB HEMATOLOGY METHOD 11/30/2024 4:10 PM EDT [facility] Differential Type Automated LAB HEMATOLOGY METHOD 11/30/2024 4:10 PM EDT [facility] Neutrophils % 45 % LAB HEMATOLOGY METHOD 11/30/2024 4:10 PM EDT [facility] Lymphocytes % 44 % LAB HEMATOLOGY METHOD 11/30/2024 4:10 PM EDT [facility] Monocytes % 6 % LAB HEMATOLOGY METHOD 11/30/2024 4:10 PM EDT [facility] Eosinophils % 4 % LAB HEMATOLOGY METHOD 11/30/2024 4:10 PM EDT [facility] Basophils % 1 % LAB HEMATOLOGY METHOD 11/30/2024 4:10 PM EDT [facility] Immature Granulocytes % 0 % LAB HEMATOLOGY METHOD 11/30/2024 4:10 PM EDT [facility] Neutrophils Absolute 2.98 1.60 - 6.10 10*3/uL LAB HEMATOLOGY METHOD 11/30/2024 4:10 PM EDT [facility] Lymphocytes Absolute 2.99 1.20 - 3.90 10*3/uL LAB HEMATOLOGY METHOD 11/30/2024 4:10 PM EDT [facility] Monocytes Absolute 0.42 0.30 - 0.90 10*3/uL LAB HEMATOLOGY METHOD 11/30/2024 4:10 PM EDT [facility] Eosinophils Absolute 0.25 0.00 - 0.50 10*3/uL LAB HEMATOLOGY METHOD 11/30/2024 4:10 PM EDT [facility] Basophils Absolute 0.07 0.00 - 0.10 10*3/uL LAB HEMATOLOGY METHOD 11/30/2024 4:10 PM EDT [facility] Immature Granulocytes Absolute 0.02 0.00 - 0.06 10*3/uL LAB HEMATOLOGY METHOD 11/30/2024 4:[address] [facility] Blood Venous blood specimen / Unknown Venipuncture / Unknown 11/30/2024 3:44 PM EDT 11/30/2024 3:56 PM EDT Narrative [facility] - 11/30/2024 4:10 PM EDT Therapeutic decision making should be based on absolute values, rather than percentages. us Mitul Garza MD LAB BLOOD ORDERABLES Final Res ult [facility] [address] [place] [address] * Ferritin (11/30/2024 3:44 PM EDT) Ferritin, Serum 34 13 - 150 ng/mL 11/30/2024 4:[address] [facility] Blood Venous blood specimen / Unknown Venipuncture / Unknown 11/30/2024 3:44 PM EDT 11/30/2024 3:52 PM EDT us Mitul Garza MD LAB BLOOD ORDERABLES Final Res ult [facility] [address] [place] [address] * MR Cardiac Morphology and Function W [...] enhancement. Normal T2 mapping as well as [place] T1 mapping and ECV is not suggestive [...] Chaya Lucas, et al. J Cardiovasc Magn Reson. [...] --- Tissue Characterization --- T1 Mapping: Myocardial [place] T1: 1192ms Blood pool [place] T1: 1657ms Myocardial post contrast T1: 415ms [...] --- Tissue Characterization --- T1 Mapping: Myocardial [place] T1: 1192ms Blood pool [place] T1: 1657ms Myocardial post contrast T1: 415ms [...] enhancement. Normal T2 mapping as well as [place] T1 mapping andECV is not suggestive of [...] * Hematocrit, Blood (10/18/2024 11:49 AM EDT) Pathologist [facility] HCT 34.1 34.0 - 45.0 % LAB HEMATOLOGY METHOD 10/18/2024 12:36 PM EDT [facility] Blood Venous blood specimen / Unknown Venipuncture / Unknown 10/18/2024 11:49 AM EDT 10/18/2024 12:26 PM EDT us Oral Palmer DO LAB BLOOD ORDERABLES Final Result [facility] [address] [place] [address] * ED HIV 1/2 Antibody/Antigen Screen w/Reflex to HIV 1/2 Differentiation (10/06/2024 10:03 AM EDT) Pathologist [facility] HIV 1 & 2 Antibody/Antigen Screen Non Reactive Non Reactive 10/06/2024 11:02 AM EDT [facility] Comment:Screening for HIV 1 & 2 antibodies, and P24 antigen is NONREACTIVE. No confirmatory testing is required. Blood Venous blood specimen / Unknown Venipuncture / Unknown 10/06/2024 10:03 AM EDT 10/06/2024 10:23 AM EDT us Tyshawn Snell MD LAB BLOOD ORDERABLES Final Result [facility] [address] [place] [address] * Mammography Breast Screening Tomosynthesis Bilateral (04/13/2022 [...] to: 01/22/2019 Mammography Outside Images Upload at [email or web address] 08/28/2019 Mammography Outside Images Upload at [email or web address] 01/24/2020 Mammography Outside Images Upload at [email or web address] 03/10/2021 Mammography Outside Images Upload at [email or web address] BREAST COMPOSITION: The breasts have scattered areas of fibroglandular density. FINDINGS: There are silicone gel, intact retro-pectoral implant(s) present in bilateral breasts. There is no evidence of suspicious masses, calcifications, or other abnormal findings. us Bill Lamar MD IMG BI PROCEDURES Final Resul t from Last 3 Months or Most Recently Relevant to Health Maintenance Insurance [employer] Care Teams Machine Whitener Relationship Specialty Start Date End Date Bill Lamar MD [address] [place] [address] PCP - General 04/13/22
--- OUTSIDE RECORDS SUMMARY | 2025-01-11 16:42 | XMS_ITS | Encounter Summary ---
Author Organization [employer] ([place], [place], [place], [place], [place]) Address [address] [place] [address] Care Team Providers Care Machine Edge Bander Name Role Phone Unavailable Primary Care Provider Unavailabl e Encounter Details Date Type Department Care Team (Late st Contact Info) Description 09/04/2019 Transcribed Document [facility] Family [place] [address] ProviderLeyda MD [address] [place] [address] [id number] Social History Tobacco Use Types Packs/Day Years [...] activities are safe for you. ??? Take gyjl-hdy-vkrneaz and prescription medicines only as told by [...] 05/30/2001 Document Revised: 10/07/2017 Document Reviewed: 10/07/2017 [employer] Patient Education ? 2020 [email or web address]. Silveira's Esophagus Silveira's esophagus occurs when the [...] Tomatoes and foods made with tomatoes. ? [place] or spicy foods. ? Chocolate and peppermint. ??? Do not drink alcohol. General instructions ??? Take [id number] and prescription medicines only as told by [...] 05/13/2004 Document Revised: 06/19/2018 Document Reviewed: 06/19/2018 [employer] Patient Education ? 2020 [email or web address]. documented in this encounter Plan of Treatment Not on file documented as of this encounter Visit Diagnoses Not on filedocumented in this encounter
--- OUTSIDE RECORDS SUMMARY | 2025-01-11 16:42 | XMS_ITS | Encounter Summary ---
Author Organization [employer] ([place], [place], [place], [place], [place]) Address [address] [place] [address] Care Team Providers Care Mobile Sales Technician Name Role Phone Unavailable Primary Care Provider Unavailabl e Encounter Details Date Type Department Care Team (Late st Contact Info) Description 09/04/2019 Transcribed Document [facility] [place] [facility] [place] [address] ProviderLeyda MD [address] [place] [address] [id number] Social History Tobacco Use Types Packs/Day Years Used Date Smoking Tobacco: Never Assessed Comments Unknown Sex and Gender Information Value Date Recorded Sex Assigned at Not on file Legal Sex Female 6:21 PM CDT Gender Identity Not on file Sexual Orientation Not on file documented as of this encounter Miscellaneous Notes * Cerner Conversion Note - Leyda ProviderMD - 09/04/2019 9:45 AM CDT [facility] Endo IntraOp Summary Primary Physician: ZINA STEELE MD-GAE Finalized Date/Time: 09/26/19 10:38:41 Pt. Name: FADI MELINDA WOODY /Sex: 1975 Female Med Rec #: [id number] Physician: ZINA STEELE MD-GAE Financial #: [id number] Pt. Type: O Room/Bed: END/ Admit/Disch: 09/04/19 08:25:00 - 09/04/19 16:27:00 Institution: [facility] Endo - Case Attendance Entry 1 Entry 2 Entry 3 Case Attendee ZINA STEELE MD-GAE MILLER, MELISSA A, RN RTELE, MARY L. Role Performed Surgeon/Proceduralist, Textile Screen Maker, First Scrub, First First Time In 09/04/19 [...] MARIE LYNNETTE, CRNA Role Performed Anesthesiologist of ENVIRONMENTAL PROFESSIONAL/Nurse Budget Coordinator Record Time In 09/04/19 09:37:00 09/04/19 09:37:00 Time Out 09/04/19 09:54:00 09/04/19 09:54:00 Procedure Esophagogastroduodenosco Esophagogastroduodenosco py, Esophageal Biopsy py, Esophageal Biopsy Other Attendee Superficial Wound Closed By: Last Modified By: STEPHENIE EVANGELISTA RN MILLER, MELISSA A, RN 09/04/19 09:52:13 09/04/19 09:52:13 [facility] Endo - Case Attendance Audit 09/04/19 09:52:13 Shoe Repair Supervisor: KARLY Modifier: TONJAMA 1 <+> Time Out 1 <*> Procedure Esophagogastroduodenoscopy, Esophageal Biopsy 2 <+> Time Out 2 <*> Procedure Esophagogastroduodenoscopy, Esophageal Biopsy 3 <+> Time Out 3 <*> Procedure Esophagogastroduodenoscopy, Esophageal Biopsy 4 <+> Time Out 4 <*> Procedure Esophagogastroduodenoscopy, Esophageal Biopsy 5 <+> Time Out 5 <*> Procedure Esophagogastroduodenoscopy, Esophageal Biopsy 09/04/19 09:49:17 Shoe Repair Supervisor: KARLY Modifier: TONJAMA 1 <+> Time In 1 <*> Procedure Esophagogastroduodenoscopy 2 <+> Time In 2 <*> Procedure Esophagogastroduodenoscopy 3 <+> Time In 3 <*> Procedure Esophagogastroduodenoscopy 4 <+> Time In 4 <*> Procedure Esophagogastroduodenoscopy 5 <+> Time In 5 <*> Procedure Esophagogastroduodenoscopy 09/04/19 09:38:36 Shoe Repair Supervisor: KARLY Modifier: KARLY <+> 2 Case Attendee <+> 2 Role Performed <+> 2 Procedure <+> 3 Case Attendee <+> 3 Role Performed <+> 3 Procedure <+> 4 Case Attendee <+> 4 Role Performed <+> 4 Procedure <+> 5 Case Attendee <+> 5 Role Performed <+> 5 Procedure [facility] Endo - Case times Entry 1 Patient In Room Time 09/04/19 09:37:00 Out Room Time 09/04/19 09:54:00 Anesthesia Start Time 09/04/19 09:37:00 Stop Time 09/04/19 09:54:00 Surgery / Procedure Times Start Time 09/04/19 09:45:00 Stop Time 09/04/19 09:51:00 Last Modified By: STEPHENIE EVANGELISTA RN 09/04/19 09:52:02 [facility] Endo - Case times Audit 09/04/19 09:52:02 Shoe Repair Supervisor: KARLY Modifier: KARLY <+> 1 Out Room Time <+> 1 Stop Time <+> 1 Stop Time 09/04/19 09:45:29 Shoe Repair Supervisor: KARLY Modifier: KARLY <+> 1 Start Time [facility] Endo - Cultures and Spec Summary Entry 1 Cultrures and Specimens Specimen Ordered: Yes Test(s) Routine/Path-Lab Requested/Final Disposition Last Modified By: STEPHENIE EVANGELISTA RN 09/04/19 09:49:51 [facility] Endo - Delays Entry 1 Delay Reason Other, No Delay Duration 0 Minute(s) Last Modified By: STEPHENIE EVANGELISTA RN 09/04/19 09:38:45 [facility] Endo - Departure from OR Entry 1 Integumentary Assessment Integumentary WDL Assessment WDL Transfer/Handoff Transfer to PACU Phase I Handoff Method Bedside/Face to face Post-op Transport Stretcher/Gurney Via Patient Transport STEPHENIE EVANGELISTA RN, Accompanied by EMMANUEL RAYMOND CRNA Last Modified By: STEPHENIE EVANGELISTA RN 09/04/19 09:38:48 [facility] Endo - Endoscopy Details Entry 1 Abdomen Procedure Soft, Non-Tender Assessment Procedure Abdomen 09/04/19 09:38:00 Assessment D/T Radio Frequency Ablation Abdominal Pressure Last Modified By: STEPHENIE EVANGELISTA RN 09/04/19 09:38:52 [facility] Endo - Fire Risk Assessment Entry [...] Modified By: STEPHENIE EVANGELISTA RN 09/04/19 09:38:54 [facility] Endo - General Case Cargo Inspector 1 Case Information OR Endo 01 [facility] Case Level 1 Room Verified Yes Wound Class II - Clean-Contaminated Specialty SN Gastroenterology Anesthesia Type General ASA Class 2 Diagnosis Preop Diagnosis hx of barretts Postop Same As Preop Yes Postop Diagnosis hx of barretts Last Modified By: STEPHENIE EVANGELISTA RN 09/04/19 09:39:11 [facility] Endo - Intraoperative Assessment Entry 1 Valid History / Yes Physical in Chart Preoperative Yes Checklist Reviewed/Evaluated Patient is Latex No Sensitive Level of WDL Consciousness (WDL = Alert, Oriented to Person, Place, and Time) Last Modified By: STEPHENIE EVANGELISTA RN 09/04/19 09:39:12 [facility] Endo - Intraoperative Equipment Entry 1 Equipment Intraop Monitoring Electrocardiogram Three lead placement (ECG) Electrode Placement Blood Pressure Arm, left upper Location Pulse Oximeter Hand, right Probe Site Antiembolic Devices Scopes Flexible Endoscopes Gastroscope Used Scope Serial A Number/Identificatio n Number Photo/Video Documentation Photo Yes Video No Last Modified By: STEPHENIE EVANGELISTA RN 09/04/19 09:39:20 [facility] Endo - Intraoperative Equipment Audit 09/04/19 09:39:20 Shoe Repair Supervisor: KARLY Modifier: KARLY <+> 1 Photo <+> 1 Video <+> 1 Blood Pressure Location <+> 1 Pulse Oximeter Probe Site <+> 1 Flexible Endoscopes Used <+> 1 Scope Serial Number/Identification Number [facility] Endo - Patient Positioning Entry 1 [...] Modified By: STEPHENIE EVANGELISTA RN 09/04/19 09:49:18 [facility] Endo - Patient Positioning Audit 09/04/19 09:49:18 Shoe Repair Supervisor: KARLY Modifier: KARLY 1 <*> Procedure Esophagogastroduodenoscopy [facility] Endo - Sign In Entry 1 Patient, Site, Yes Procedure Identified Surgical Consent Yes Confirmed Surgical Site N/A Marked by person performing procedure Airway Hypothermia Risk No Warming Measures No Taken Last Modified By: STEPHENIE EVANGELISTA RN 09/04/19 09:39:28 [facility] Endo - Sign Out Entry 1 [...] Modified By: STEPHENIE EVANGELISTA RN 09/04/19 09:52:08 [facility] Endo - Surgical Procedures Entry 1 [...] MELISSA A, RN 09/04/19 09:52:11 09/04/19 09:52:11 [facility] Endo - Surgical Procedures Audit 09/04/19 09:52:11 Shoe Repair Supervisor: KARLY Modifier: MILLERMA <+> 1 Stop <+> 2 Stop 09/04/19 09:49:16 Shoe Repair Supervisor: KARLY Modifier: MILLERMA <+> 2 Procedure <+> 2 Primary Procedure <+> 2 Primary Surgeon <+> 2 Specialty <+> 2 Start <+> 2 Wound Class <+> 2 Anesthesia Type <+> 2 Additional Procedure Description 09/04/19 09:45:40 Shoe Repair Supervisor: KARLY Modifier: MILLERMA <+> 1 Start [facility] Endo - Time Out Entry 1 [...] Modified By: STEPHENIE EVANGELISTA RN 09/04/19 09:49:18 [facility] Endo - Time Out Audit 09/04/19 09:49:18 Shoe Repair Supervisor: KARLY Modifier: KARLY 1 <*> Procedure to be Performed Esophagogastroduodenoscopy Case Comments <None> Finalized By: Linda Mya, Rn Document Signatures Signed By: STEPHENIE EVANGELISTA RN 09/04/19 09:52 Linda May Rn 09/26/19 10:38 Unfinalized History Date/Time Username Reason for Unfinalizing Freetext Reason for Unfinalizing 09/26/19 10:36 REYNA Correct Billing Electronically signed by Serafin, [facility] Conversion Staffing Analyst Cerner at 06/22/2022 9:29 AM CDT documented in this encounter Plan of Treatment Not on file documented as of this encounter Visit Diagnoses Not on filedocumented in this encounter
--- OUTSIDE RECORDS SUMMARY | 2025-01-11 16:42 | XMS_ITS | Encounter Summary ---
Author Organization [employer] ([place], [place], [place], [place], [place]) Address [address] [place] [address] Care Team Providers Care Data Governance Consultant Name Role Phone Unavailable Primary Care Provider Unavailabl e Encounter Details Date Type Department Care Team (Late st Contact Info) Description 09/30/2018 Transcribed Document [facility] [place] [address] ProviderLeyda MD [address] [place] [phone] Social History Tobacco Use Types Packs/Day Years Used Date Smoking Tobacco: Never Assessed Comments Unknown Sex and Gender Information Value Date Recorded Sex Assigned at Not on file Legal Sex Female 6:21 PM CDT Gender Identity Not on file Sexual Orientation Not on file documented as of this encounter Miscellaneous Notes * Cerner Conversion Note - Leyad Clark MD - 09/30/2018 1:40 PM CDT [...] including vitamins, herbs, eye drops, creams, and [id number] medicines. ??? Previous problems your child or [...] 08/25/2015 Else[employer] Interactive Patient Education ? 2019 [employer] Electronically signed by Ernesto Betancourt Conversion Credentialing Coordinator Cerner at 06/22/2022 9:22 AM CDT documented in this encounter Plan of Treatment Not on file documented as of this encounter Visit Diagnoses Not on filedocumented in this encounter
--- OUTSIDE RECORDS SUMMARY | 2025-01-11 16:42 | XMS_ITS | Encounter Summary ---
Author Organization Healthcare Address [address] [place] [address] Care Team Providers Care Wood Crew Supervisor Name Role Phone Bill Lamar MD Primary Care Provider [phone] Encounter Details Date Type Department Care Team (Late Contact Info) Description 08/27/2024 Orders Only External Location [address] [place] [address] Provider, External Social History Tobacco Use Types [...] Description 02/19/2025 9:00 AM EST Ancillary Procedure [facility] [address] [place] [address] 02/19/2025 10:00 AM EST Office Visit [facility] [address] [place] [address] Mariam Urban MD [address] [place] [phone] 04/03/2025 9:00 AM EST Appointment [facility] Pulmonary Function Testing [address] [place] [address] 04/25/2025 11:20 AM EST Office Visit [facility] [place] [address] [facility], [address] [place] [address] Sara Johnson, [facility] [address] [place] [address] 04/26/2025 11:10 AM EST Office Visit [facility] [address] [place] [address] 05/16/2025 2:00 PM EDT Office Visit [facility] [address] [place] [address] Marli Godoy MD [address] [place] [address] documented as of this encounter [...] documented as of this encounter Care Teams Wood Crew Supervisor Relationship Specialty Start Date End Date Bill Lamar MD [address] [place] [address] PCP - General 04/13/22 documented as of this encounter
--- OUTSIDE RECORDS SUMMARY | 2025-01-11 16:42 | XMS_ITS | Encounter Summary ---
Author Organization [employer] ([place], [place], [place], [place], [place]) Address [address] [place] [address] Care Team Providers Care Spanish Tutor Name Role Phone Unavailable Primary Care Provider Unavailabl e Encounter Details Date Type Department Care Team (Late st Contact Info) Description 09/29/2018 Transcribed Document [facility] [place] [address] [place] [address] ProviderLeyda MD [address] [place] [id number] Social History Tobacco Use Types Packs/Day Years Used Date Smoking Tobacco: Never Assessed Comments Unknown Sex and Gender Information Value Date Recorded Sex Assigned at Not on file Legal Sex Female 6:21 PM CDT Gender Identity Not on file Sexual Orientation Not on file documented as of this encounter Miscellaneous Notes * Cerner Conversion Note - Historical ProviderMD - 09/29/2018 5:42 PM CDT Pain [...] form. Electronically signed by Ernesto Betancourt Conversion Swine Extension Field Specialist Cerner at 06/27/2022 1:10 PM CDT documented in this encounter Plan of Treatment Not on file documented as of this encounter Visit Diagnoses Not on filedocumented in this encounter
--- OUTSIDE RECORDS SUMMARY | 2025-01-11 16:42 | XMS_ITS | Encounter Summary ---
Author Organization [employer] ([place], [place], [place], [place], [place]) Address [address] [place] [address] Care Team Providers Care Senior Living Advisor Name Role Phone Unavailable Primary Care Provider Unavailabl e Encounter Details Date Type Department Care Team (Late st Contact Info) Description 09/30/2018 Transcribed Document [facility] [place] [facility] [place] [address] ProviderLeyda MD [address] [place] [phone] Social History Tobacco Use Types Packs/Day Years [...]
--- OUTSIDE RECORDS SUMMARY | 2025-01-11 16:43 | XMS_ITS | Data Portability ---
Author Organization [facility] Jorge patten, CKS NEWMAN CLOSED Address [address] [place] [address] Care Team Providers Care Sales Service Executive Name Role Phone GONZALES AMADOR Primary Care Provider [phone] PARVEZ SANTILLAN Manager Client Service MISBAH SLATER Traveling Secretary Assessment Encounter Date Assessment Date Assessment LastModified by Organization Details LastModified Time 07/18/2023 07/18/2023 Interval dysphagia followed by [facility], repeating scope with [facility] in August 2023. [email or web address] Not available 07/18/2023 16:15:50 09/01/2023 09/01/2023 Ms. Aponte is a very pleasant, 48 y.o. patient with a h/o Scleroderma who was last seen in the office on 06/09/22 for chest pain and LBBB. She was recently evaluated at [facility] for her scleroderma diagnosis. An echocardiogram was performed at that time. It documented a decline in her left ventricular ejection fraction from a baseline of 50-55% per most recent echocardiogram last year at [facility] to the left trickle ejection fraction of [...] To review: She was recently evaluated at [facility] for her scleroderma diagnosis. An echocardiogram was performed at that time. It documented a decline in her left ventricular ejection fraction from a baseline of 50-55% per most recent echocardiogram last year at [facility] to the left ventricular ejection fraction of [...] Lab sjogren antibody panel, serum 2023 024 [email or web address] [facility], [address] [place] [address], [phone], 07/25/2023 12:17:02 glycohemo globin, total, blood 2023 024 [email or web address] [facility], [address] [place] [address], [phone], 07/25/2023 12:17:01 TSH, serum or plasma 2023 024 [email or web address] [facility], [address] [place] [address], [phone], 07/25/2023 12:17:01 BMP, serum or plasma 2023 024 [email or web address] [facility], [address] [place] [address], [phone], 07/25/2023 12:17:01 CBC w/ auto diff 2023 024 [email or web address] [facility], [address] [place] [address], [phone], 07/25/2023 12:17:02 Referral None recorded. Procedures None recorded. Surgeries None recorded. Imaging CT, chest, w/o contrast 2024 025 [id number] 8 [facility], [address] [place], [address], 05/01/2024 09:48:02 CT, chest, w/o contrast 2023 024 [facility], [address] [place], [address], 04/20/2024 13:54:19 Medication Orders lisinopri l 2.5 mg tablet 2023 025 [facility] [id number], [address] [place] [address], [phone], 04/20/2024 15:17:26 pilocarpi ne 5 mg tablet 2023 024 [id number], [address] [place], [place], [phone], 12/05/2023 15:21:15 Patient TargetsNo targets recorded. Patient Instructions Encounter Date Encounter Id Patient Instructions Last Modified By Organization Details Last Modified Time 12/05/2023 [id number] body mass index: care instructions Not available [...] w/o contr ast [place] [facility] [address] [place] [address] Patielvis t Name: CHARISSA APONTE Patielvis t [...] Marvin Farrell MD on 1:49 PM pollo [facility] [address] [place] [address], [phone], 04/20/2024 13:56:26 Result Notes Documentation Provider Name and Address Organization Details Recorded Time Ct, Chest, W/o Contrast : [address] [address] Patient Name: MELINDA APONTE Patient : 1975 [...] By: Marvin Farrell MD A BRUNER MD [address] [place] [address], [phone], [facility] 04/20/2024 13:56:26 Problems No Known Problems Procedures Surgical History Date Name Laterality Status Provider Name and Address Organization Details Recorded Time 09/16/19 24 COMBINED RIGHT AND LEFT HEART CATHETERIZATION (SURG) completed Lillianzhen Mcnamara [facility] 09/19/2023 08:03:09 09/01/19 24 EKG completed MISBAH SLATER MD [address] [place] [address], [phone], [place] [facility] 09/01/2023 12:24:55 03/11/19 24 Airway Resistance completed Gisel Ayah [place] [facility] 03/11/2023 14:51:48 03/11/19 24 Diffusion Capacity completed Gisel Ayah [place] [facility] 03/11/2023 14:51:47 03/11/19 24 Lung Volumes, Plethysmography completed Gisel Ayah [place] [facility] 03/11/2023 14:51:56 03/11/19 24 Spirometry completed Gisel Ayah [place] [facility] 03/11/2023 14:51:45 03/11/19 24 Pulmonary Function Testing completed CHAYA REDMAN MD [facility] [place], [address], [facility] [place] [facility] 03/11/2023 15:04:06 06/05/19 23 Stress Test - Nuclear Lexiscan completed MISBAH SLATER MD [facility] [place], [address], [facility] [place] [facility] 06/04/2022 16:55:23 05/21/19 23 EKG completed MISBAH SLATER MD [facility] [place], [address], [facility] [place] [facility] 05/21/2022 06:25:05 05/21/19 23 Echocardiogram completed MISBAH SLATER MD [address] [place] [address], [phone], [facility] [place] [facility] 05/20/2022 14:45:47 12/24/19 22 Airway Resistance completed Gabriela Cervantesan [place] [facility] 12/23/2021 09:23:10 12/24/19 22 Diffusion Capacity completed Gabriela Jarocho [place] [facility] 12/23/2021 09:23:09 12/24/19 22 Lung Volumes, Plethysmography completed Gabrielaroger Cervantesan [place] [facility] 12/23/2021 09:23:15 12/24/19 22 Spirometry completed Gabriela Avendaño [place] [facility] 12/23/2021 09:23:13 05/22/19 22 Airway Resistance completed [facility] 05/21/2021 08:59:09 05/22/19 22 Diffusion Capacity completed [facility] 05/21/2021 08:59:05 05/22/19 22 Lung Volumes, Plethysmography completed [facility] 05/21/2021 08:59:06 05/22/19 22 Spirometry with Bronchodilator completed [facility] 05/21/2021 08:59:13 05/08/19 22 Echocardiogram completed YIN ECKERT MD [address] [place], [address], [facility] 05/08/2021 09:50:04 05/08/19 22 EKG completed FLORES PLASCENCIA PA-C [address] [place], [address], [facility] 05/07/2021 14:26:41 section completed [facility] 05/21/2021 08:51:52 Hysterectomy/bladde r repair completed [facility] 05/21/2021 08:51:57 cholecystectomy completed [facility] 05/21/2021 08:52:07 Jim fundoplication completed [facility] 05/21/2021 08:52:23 Breast augmentation w/implt completed [facility] 05/21/2021 08:52:35 procedure on knee completed [facility] 04/16/2022 10:10:21 endoscopy completed [facility] 04/16/2022 10:10:41 Imaging Results None recorded. Procedure Notes None recorded. Medical Equipment None Reported. Allergies Allergen ID Allergen Name Allergen Category Reaction Reaction Severity Criticality Documentation Date Start Date Code Code System Note Provider Name and Address Organization Details Recorded Time 959495 Lamictal medicatio n Not available Not available Not available 04/30/2021 2 [facility] 10[facility]06:03 469836 lithium Not available Not available Not available Not available 04/30/2021 6448 RxNorm Maxine dyer [facility] 2 10:06:11 015294 Levaquin medicatio n Not available Not available Not available 12/05/2023 73980 2 RxNorm Linnette Kam [facility] 4 15:20:22 Medications Name Sig Start Date [...] Updated DateTime 4 154.94 cm 34.6 kg/m2 20735.4 g 98 % 98 % 86 /min 122/78 mm[Hg] Gisel Poon [facility] 4 14:46:39 Date Recorded Body height Body mass index (BMI) Body weight Oxygen saturation Oxygen saturation in Arterial blood by Pulse oximetry Heart rate Systolic And Diastolic Provider Name and Address Organization Details Last Updated DateTime 5 154.94 cm 33.1 kg/m2 15410.6 6 g 98 % 98 % 85 /min 122/68 mm[Hg] Rosita Snowden [facility] 5 15:19:39 Date Recorded Body height Body mass index (BMI) Body weight Respiratory rate Heart rate Oxygen saturation Oxygen saturation in Arterial blood by Pulse oximetry Systolic And Diastolic Provider Name and Address Organization Details Last Updated DateTime 4 154.94 cm 34 kg/m2 32303.6 3 g 16 /min 88 /min 100 % 100 % 122/80 mm[Hg] Leda Aponte [facility] 4 16:03:18 Date Recorded Body height Body mass index (BMI) Body weight Respiratory rate Oxygen saturation Oxygen saturation in Arterial blood by Pulse oximetry Heart rate Systolic And Diastolic Provider Name and Address Organization Details Last Updated DateTime 4 154.94 cm 36 kg/m2 34068.6 5 g 16 /min 100 % 100 % 94 /min 132/86 mm[Hg] Lisa Kevon [facility] 4 12:15:55 Date Recorded Body height Body mass index (BMI) Body weight Oxygen saturation Oxygen saturation in Arterial blood by Pulse oximetry Heart rate Systolic And Diastolic Provider Name and Address Organization Details Last Updated DateTime 4 154.94 cm 35 kg/m2 83352.0 3 g 92 % 92 % 90 /min 124/82 mm[Hg] Linnette Kam [facility] 4 15:30:49 Social History Question Answer Notes LastModified by [facility] Details LastModified Time Tobacco Smoking Status [facility]oker [facility] 04/30/2021 10:08:44 What Was The Date Of Your Most Recent Tobacco Screening? 04/13/2024 [email or web address] Information not available 04/20/2024 How Many Children Do You Have? 1 [email or web address] Information not available 05/07/2021 What Is Your Relationship Status? [email or web address] Information not available 05/07/2021 Has Tobacco Cessation Counseling Been Provided? No Information not available 04/30/2021 Have You Recently Traveled Abroad? No Information not available 05/07/2021 Sex: Female Functional [...] available 04/07 15:06:09 Paternal Grandfather Heart disease [email or web address] Not available 05/21 08:53:52 Mother Heart disease [...] Pneumonia Y Pulmonary Hypertension N Anemia Y Heart Attack (RI) N Ulcers N Deep Vein Thrombosis N Sinusitis Y Pulmonary Fibrosis N Diabetes N Bleeding Disorder N Arthritis Y Seizures/Epilepsy N Tuberculosis N AIDS/HIV N Alpha 1 Antitrypsin Deficiency N Congestive Heart Failure (CHF) Y Acid Reflux (GERD) Y Cancer N Stroke N Asthma N Sleep Apnea N Thyroid Disorder N GERD/Reflux Y High Cholesterol N Hepatitis N Aneurysm N Cirrhosis N Neuropathy Y Heart Disease Y Pulmonary Embolism N Hypertension N Osteoporosis N Gynecological HistoryNo gynecological history recorded. Obstetrics History GPAL:G 0 P 0 0 0 0 Immunizations Vaccine Type Date Status Note Provider Nam e and Address Organization Details Recorded Time COVID-19 vaccine, vector-nr, rS-Ad26, PF, 0.5 mL 05/15/2020 completed Mone Hernandez [facility] 05/21/2021 08:52:59 COVID-19, mRNA, LNP-S, PF, 100 mcg/0.5mL dose or 50 mcg/0.25mL dose 01/10/2021 [facility] 08:53:15 Past Encounters Encounter ID Performer Location Encounter Start Date Encounter Closed Date Diagnosis/Indication Diagnosis SNOMED-CT Code Diagnosis ICD10 Code Diagnosis IMO Codes Diagnosis Note [id number] PARVEZ SANTILLAN MD [facility] [address] [place] [address] 04/30/2021 09:56:45 04/30/2021 12:14:58 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 Malaise and fatigue 0509 09644 R53.81 R53.83 In terms of chronic malaise and fatigue, I would suggest to be screened for obstructiv e sleep apnea. She will follow this with her primary care physician. [id number] FLORES PLASCENCIA PA-C CARDIOLOG Y EAST [address] [place] [address] ,[address] [place] [address] 05/07/2021 13:51:00 05/11/2021 09:16:05 Left bundle branch block 43207053 I44.7 Chronic with reported negative cardiac work-up Limited sy stemic sclerosis 563700522 M34.9 Patient will get a baseline echo due to potential associatio n of pulmonary arterial hypertensi on with systemic scleroderm a. She has a schedule appointmen t for baseline pulmonary evaluation as well. [id number] YIN ECKERT MD ECHO [facility] [address] [place] [address] 05/07/2021 16:08:52 05/11/2021 07:14:16 Pulmonary hypertension 07132263 I27.20 [id number] MISBAH GOOD MD PULMONARY [address], [address] [place] [address] 05/21/2021 08:32:41 05/21/2021 10:00:38 Systemic sclerosis 47039226 M34.9 Newly diagnosed with scleroderm a. She [...] pulmonary function testing. Gastroesop hageal reflux disease 254499424 K21.00 [id number] PARVEZ SANTILLAN MD [facility] [address] [place] [address] 06/18/2021 15:47:05 06/18/2021 16:59:14 Limited systemic sclerosis 662558386 M34.9 46-year-ol d female with clinical evidence [...] will get GI consultati on from [facility]. In the meantime she will maintain the [...] years. Gastro-eso phageal reflux disease with esophagitis 770567504 K21.00 Chronic secondary to limited scleroderm a. Currently on Protonix. Discussed concerns about potential Silveira's esophagus. She has requested a consultati on from a tertiary care center. We will try to get [facility] gastroente rology to see her. [id number] MISBAH GOOD MD PULMONARY [address] [facility], [address] [place] [address] 12/23/2021 09:04:58 12/23/2021 10:36:04 Systemic sclerosis 93336927 M34.9 Newly diagnosed with scleroderm a. She [...] testing 1 year. Gastroesop hageal reflux disease 663141828 K21.00 [id number] PARVEZ SANTILLAN MD R[facility]AT[facility] OGY [address] [place] [address] 04/16/2022 09:57:15 04/16/2022 13:10:14 Limited systemic sclerosis 108052477 M34.9 47-year-ol d female with clinical evidence [...] is seen by tanner dickens at the [facility]. She has had evaluation at the [facility] in the past. Currently on Protonix and famotidine . Still symptomati c. Suggested to consider Dexilant in place of Protonix which she will review with the gastrofred santosogy at [facility]. Also reminded to avoid all NSAIDs. I [...] planned. Gastro-eso phageal reflux disease with esophagitis 536178164 K21.00 Chronic gastroesop hageal reflux disease secondary to limited scleroderm a. Currently on Protonix in combinatio n with famotidine . Has had evaluation at the [facility] gastroente rology and most recently at [facility]. So far the work-up is negative for Silveira's esophagus. However the current medication s are not helping her symptoms. We talked about usual care including keeping her head elevated to more than 30 degrees at bedtime. Also suggested to avoid greasy and spicy food. Discussed Dexilant in place of Protonix which she will follow-up with her gastroente rology at [facility].Michael shepard is taking Advil and I suggested her to avoid all NSAIDs. I wrote a prescripti on for tramadol to help with her pains. Chronic pain syndrome 37 4436070 G89.4 Chronic pain syndrome diagnosis fibromyalg ia at the [facility]. Suggested Elavil. I am a bit concerned about the use of anticholin ergic medication especially with her gastropare sis and reflux disease. Nonpharmac ologic modalities including relaxation exercises neelam chi and yoga reviewed. She can maintain tramadol for the pain management . We also discussed the role of Cymbalta. [id number] MISBAH SLATER MD ECHO [facility]ASCULAR LAB CLOSED [address] [address] 05/20/2022 13:12:07 05/21/2022 04:47:25 Left bundle branch block 30766981 I44.7 [id number] MISBAH SLATER MD CARDIOLOG Y EAST [address] [place] [address] 05/20/2022 13:13:10 05/20/2022 14:51:02 Obesity 567790576 E66.9 patient's BMI today was = 33.3; recommend weight loss to achieve a BMI of <=25. Left bundl e branch block 86185964 I44.7 Patient has h/o chronic LBBB.EKG today - normal sinus rhythm, rate=86, normal axis, LBBB, QTc= 433 ms. Chest pain 38382918 R07. 9 Based on history and physical exam, the patient's chest pain is of unknown etiology. Patient with family history of CAD. Echocardio gram today revealed LVEF=50-55 % and no significan t valvular abnormalit ies. Recommenda tion:Nafisa can nuclear stress testing is recommende d in the near future to evaluate this issue. Limited sy stemic sclerosis 602864743 M34.[address] Delia Santillan ( Rheumatolo gy) and at the [facility] for this issue. A yearly echocardio gram to assess RV size, RV systolic function, and to estimate RVSP is recommende d. [id number] MISBAH SLATER MD [facility] [address] [place] [address],[address] [place] [address] 06/04/2022 12:22:45 06/07/2022 08:32:25 [id number] MISBAH SLATER MD CARDIOLOG Y [address] [place] [address] 06/09/2022 14:57:30 06/10/2022 04:14:19 Obesity 374026998 E66.9 patient's BMI today was = 33.7; recommend weight loss for beneficial effects on health. Chest pain 91666933 R07. 9 Based on history and physical [...] this time. Left bundl e branch block 09515755 I44.7 Patient has h/o chronic LBBB. Palpitations 57078705 R0 0.2 One recent episode of palpitatio [...] likely be ordered. Limited sy stemic sclerosis 037837910 M34.[address] Delia Santillan ( Rheumatolo gy) and at the [facility] for this issue. Recommenda tion:An Echocardio gram q 1-2 years to assess RV size, RV systolic function, and to estimate RVSP is recommenddevyn eduardo [id number] PARVEZ DELIA SANTILLAN MD RHEUMATOL OGY [address] [place] [address] 12/09/2022 15:54:25 12/11/2022 04:24:11 Limited systemic sclerosis 876113338 M34.9 47-year-ol d female with clinical evidence [...] Has had evaluation at the [facility] and later at [facility] which confirmed ineffectiv e esophageal motility. Now scheduled to follow-[facility] with [facility]issie [facility] In the meantime she will maintain [...] years. Gastro-eso phageal reflux disease with esophagitis 532677606 K21.00 Chronic gastroesop hageal reflux disease secondary to limited scleroderm a. Currently on Protonix in combinatio n with famotidine . Has had evaluation at the [facility] gastroente rology and most recently at [facility]. Negative work-up for Silveira's esophagus. The motility study at 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 She is now scheduled to see motility specialist in [facility]. We talked about usual care including keeping her head elevated to more than 30 degrees at bedtime. Also suggested to avoid greasy and spicy food. She will maintain Protonix twice a day and she will follow-up with her gastroente rology at [facility]/[place]. I suggested her to avoid all NSAIDs. She can use tylenol extra strength. Chronic pain syndrome 37 7094781 G89.4 Chronic pain syndrome diagnosis fibromyalg ia at the [facility]. Suggested Elavil. I am a bit concerned [...] be adjusted based on her tolerance benefit. [id number] CHAYA SCHMITZ MD PULMONARY [address] [facility], [address] [place] [address] 03/11/2023 14:40:15 03/11/2023 16:25:00 Localized scleroderma 269882477 L94.0 Scleroderm a without any pulmonary manifestat [...] a repeat CT scan of the chest [id number] PARVEZ SANTILLAN MD RHEUMATOL OGY [address] [place] [address] 07/18/2023 15:55:52 07/20/2023 04:06:21 Limited systemic sclerosis 485071128 M34.9 48-year-ol d female with clinical evidence [...] disorder, gastropare sis. Currently being evaluated at [facility] tertiary care center. She has had evaluation at [facility] and also at [facility] She was not very satisfied with [facility] workup or evaluation s. For now, she will maintain the hydroxychl oroquine at 200 mg once a day and continue with the current dose of Dexilant 60 mg daily. She will maintain amitriptyl ine at 50 mg p.o. nightly for chronic pain/fibro myalgia syndrome. During this upcoming [facility] evaluation she is scheduled for rheumatolo gy as well as cardiology evaluation . Recent pulmonary evaluation at [facility] reviewed, DLCO as of 03/11/2023 within normal limits. Follow up in 6 months. Gastro-eso phageal reflux disease with esophagitis 774311864 K21.00 Chronic gastroesop hageal reflux disease secondary to limited scleroderm a. She is now on Dexilant 60 mg once a day. She has failed the Protonix. Has had evaluation s at the [facility], [facility] and [facility] . Further history is positive for gastropare sis. Negative work-up for Silveira's esophagus. The motility study at 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 Scheduled for repeat upper scope with [facility] in August 2023. I suggested her to avoid all NSAIDs. She can use tylenol extra strength. Chronic pain syndrome 37 9975466 G89.4 Chronic pain syndrome diagnosis fibromyalg ia at the [facility]. She is now on amitriptyl ine 50 mg at bedtime which seems to be helping her symptoms quite well. Nonpharmac ologic modalities including relaxation exercises neelam chi and yoga reviewed. Try to reduce stress. We will continue to watch her clinically . Certainly the dose of the amitriptyl ine can be adjusted based on her tolerance benefit. Xerostomia 05298457 R68. 2 She has xerostomia likely multifacto rial further contribute d by amitriptyl ine suggested symptomati c management with pilocarpin e. I also obtained the Sjogren's profile. She will initiate pilocarpin e 5 mg every 8 hours Abnormal weight gain 161 116853 R63.5 He has gained some weight in the last few months.Sug gested to obtain routine metabolic panel to look at the reversible causes. She will maintain her strict dietary program. [id number] MISBAH SLATER MD CARDIOLOG Y [address] [place] [address] 09/01/2023 12:05:38 09/01/2023 13:12:53 Left bundle branch block 42604005 I44.7 Patient has h/o chronic LBBB. EKG (09/01/23) - normal sinus rhythm, rate= 94, normal axis, IVCD-likel y left bundle branch block, QTc= 445 ms, no significan t ST abnormalit ies. Cardiomyopathy 06798693 I42.9 Recent echocardio gram at [facility] documented LVEF=35-40 % with several RWMA and [...] unchanged. She follows with Dr. Carcamo at [facility] in clinic pulmonary and is neck scheduled [...] preprocedu re labs: CMP, CBC Chest pain 59269116 R07. 9 Since last visit, patient reports [...] catheteriz ation2) preprocedu re labs: CMP, CBC [id number] MISBAH SLATER MD CARDIOLOG Y [facility] [address] [address] [facility] [address] 12/05/2023 15:03:04 12/06/2023 10:59:36 Obesity 276435109 E66.9 patient's BMI today was = 35.0; recommend weight loss for beneficial effects on health. Left bundl e branch block 06030649 I44.7 Patient has h/o chronic LBBB. EKG (09/01/23) - normal sinus rhythm, rate= 94, normal axis, IVCD-likel y left bundle branch block, QTc= 445 ms, no significan t ST abnormalit ies. Cardiomyopathy 70309525 I42.9 Recent echocardio gram at [facility] documented LVEF=35-40 % with several RWMA and [...] ies, no scarring or fibrosis. Chest pain 70209014 R07. 9 Since last visit, patient reports [...] signficant ly improved on Colchicine . Palpitations 64496869 R0 0.2 She reports a recent increase in palpitatio ns, dizziness/ lightheade dness, and dyspnea. RECOMMENDA TION: 5 day Holter monitoring -Consider low dose beta reyes after monitoring [id number] CHAYA CARCAMO-IC MD [facility] [address] [facility], [address] [place] [address] 04/20/2024 15:05:16 04/20/2024 16:27:24 Localized scleroderma [id number] L94.0 Scleroderm a without any parenchyma l [...] PLAN Melinda Aponte 04/19/2024 1 [place] [id number] Melinda Aponte [id number] Melinda Aponte 10/14/2024 1 [place] [id number] Melinda Aponte [id number] Melinda Aponte 03/11/2023 1 [place] [id number] Devonte Aponte [id number] 70 Melinda Aponte Notes Date Note Type [...] tests are entirely unremarkable CHAYA BRUNER MD [facility] [place], [address], [facility] 03/11/2023 15:12:45 07/18/2023 text/html ROS as noted in the HPI 48-year-old seen today as a follow-up for limited scleroderma. 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 Significant chronic gastroesophageal reflux disease and gastroparesis. Has had evaluation with [facility] gastroenterology and later saw gastroenterology at [facility]. She also had evaluation with rheumatology at [facility].She is on Dexilant 60 mg daily off the Protonix. She is also on amitriptyline 50 mg at bedtime which seems to have helped the fibromyalgia pains. Had a motility study at [facility] dated 07/30/2022 which confirmed ineffective esophageal motility consistent with scleroderma. She does not have any history of interstitial lung disease or pulmonary arterial hypertension. She is on maintenance hydroxychloroquine 200 mg once a day. Interval dysphagia followed by [facility], was not very satisfied with [facility] and is not scheduled to follow-up with [facility] in August 2023. PARVEZ SANTILLAN MD [facility] [place], [address], [facility] 07/19/2023 08:08:48 09/01/2023 text/html ROS as noted in the HPI Ms. Aponte is a very pleasant, 48 y.o. patient with a h/o Scleroderma who was last seen in the office on 06/09/22 for chest pain and LBBB. She was recently evaluated at [facility] for her scleroderma diagnosis. An echocardiogram was performed at that time. It documented a decline in her left ventricular ejection fraction from a baseline of 50-55% per most recent echocardiogram last year at [facility] to the left trickle ejection fraction of [...] a follow-up visit today. MISBAH SLATER MD [facility] [place], [address], [facility] 12/02/2023 09:28:38 12/05/2023 text/html ROS as noted in the HPI Ms. Aponte is a very pleasant, 48 y.o. patient with a h/o Scleroderma who was last seen in the office on 09/01/23 for chest pain and LBBB. To review:She was recently evaluated at [facility] for her scleroderma diagnosis. An echocardiogram was performed at that time. It documented a decline in her left ventricular ejection fraction from a baseline of 50-55% per most recent echocardiogram last year at [facility] to the left ventricular ejection fraction of 35% with some regional wall motion abnormalities.Cardiac MRI (11/11/23): LVEF=40.1%, no fibrosis or scarring. Patient reports occasional palpitations and dizziness. Chest pain & abdominal pain prompted an ER visit at [facility]. Patient was started on colchicine and this has significantly improved the chest pain. Patient returns to the clinic today for a scheduled follow-up visit. MISBAH SLATER MD [address] [place] [address], [phone], [facility] 12/05/2023 18:45:00 04/20/2024 text/html ROS as [...] Of note, her GI MD and second security agent is at [facility] CHAYA BRUNER MD [address] [place] [address], [phone], [facility] 04/20/2024 15:43:31 OBGyn Episode No OBEpisode recorded.
--- OUTSIDE RECORDS SUMMARY | 2025-01-11 16:43 | XMS_ITS | Encounter Summary ---
Author Organization [employer] ([place], [place], [place], [place], [place]) Address [address] [place] [address] Care Team Providers Care Management Professor Name Role Phone Unavailable Primary Care Provider Unavailabl e Encounter Details Date Type Department Care Team (Late st Contact Info) Description 05/25/2018 Transcribed Document [facility] [place] [address] ProviderLeyda MD [address] [place] [address] Social History Tobacco Use Types Packs/Day Years Used Date Smoking Tobacco: Never Assessed Comments Unknown Sex and Gender Information Value Date Recorded Sex Assigned at Not on file Legal Sex Female 6:21 PM CDT Gender Identity Not on file Sexual Orientation Not on file documented as of this encounter Miscellaneous Notes * Cerner Conversion Note - Leyda ProviderMD - 05/25/2018 3:21 PM CDT [address] Qasim Capone, [place] [address] Patient Copy Patient Information: Name: MELINDA APONTE Current Date: 05/25/2018 15:21:13 : 1975 Patient Address: [facility] [place] [facility] [address] Patient Attending Physician: ZINA STEELE MD-NJJosef Primary Care Provider: Bill Lamar MD Primary [...] getting enough exercise. ??? Smoking. ??? Taking xuba-cpd-sspdvjz pain medicines, like aspirin and ibuprofen. SYMPTOMS [...] 11/18/2004 Document Revised: 02/26/2014 Document Reviewed: 01/16/2014 [employer] Interactive Patient Education ? 2017 [employer]. Colonoscopy, Adult, Care After This sheet gives [...] slower pace than normal. ? Eat soft, stsq-xw-bxvqel foods. ? Rest often. ??? Take rern-dix-pfpwzjb or prescription medicines only as told by [...] 10/05/2004 Document Revised: 11/15/2016 Document Reviewed: 05/04/2016 [employer] Interactive Patient Education ? 2017 [employer] Hiatal Hernia A hiatal hernia occurs [...] symptoms. ??? Medicines. These may include: ? Qzad-ray-pvxqppj antacids. ? Medicines that make your stomach [...] These may include: ? Fatty foods. ? Morehouse fruits. ? Other foods and drinks that [...] 05/13/2004 Document Revised: 06/14/2016 Document Reviewed: 02/08/2014 [employer] Interactive Patient Education ? 2017 [employer]. Gastric Polyps A gastric polyp, also called [...] Follow these instructions at home: ??? Take tamn-gsf-qfhzwzc and prescription medicines only as told by [...] 02/07/2013 Document Revised: 07/12/2016 Document Reviewed: 03/07/2016 [employer] Interactive Patient Education ? 2017 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 ? Impact or spicy foods. ? Chocolate and peppermint. General instructions ??? Take zlxu-ond-awuizkc and prescription medicines only as told by [...] Assistance with quitting is available by contacting 6-030-OWUM-NOW. This is a free resource providing counseling, [...] sure to sign up for the [facility] patient portal, which gives you 27/09 access to your medical information ??? including these discharge instructions ??? using your computer, smartphone, or tablet. Just go to [employer]iona to get started. Questions? Call . [facility] would like to thank you for allowing us to assist you with your healthcare needs. I, MELINDA APONTE, (or route service representative) have received the above patient education materials/instructions and have verbalized understanding: Patient Signature _ Date/Time Patient Hr Generalist Signature (if needed) Date/Time Clinician/Hospital Hr Generalist Signature (if needed) Date/Time documented in this encounter Plan of Treatment Not on file documented as of this encounter Visit Diagnoses Not on filedocumented in this encounter
--- OUTSIDE RECORDS SUMMARY | 2025-01-11 16:43 | XMS_ITS | Encounter Summary ---
Author Organization Healthcare Address [address] [place] [address] Care Team Providers Care Clinical Medical Assistant Name Role Phone Bill Lamar MD Primary Care Provider [phone] Encounter Details Date Type Department Care Team (Latest Contact Info) Description 12/31/2024 Orders Only [facility] Medicine Specialties [address], [address] [place] [address] Sony Buck, MBBS [address] [place] [address] Limited systemic sclerosis (CMS/HCC) (Primary Dx); Dysphagia, pharyngoesophageal phase Social History Tobacco Use Types Packs/Day Years [...] first t cyndie in the morning (EYE-CHIEF OPERATOR SYNTHESIS) to steady your nerves or to get [...] Description 02/19/2025 9:00 AM EST Ancillary Procedure [facility] [address] [facility], [address] [place] [address] 02/19/2025 10:00 AM EST Office Visit [place] [address] [address] Mariam Urban MD [address] [place] [address] 04/03/2025 9:00 AM EST Appointment [facility] Pulmonary Function Testing [address] [place] [address] 04/25/2025 11:20 AM EST Office Visit [facility] [place] [address] [facility], [address] [place] [address] Sara Johnson APRN [address] [place] [address] 04/26/2025 11:10 AM EST Office Visit [facility] [address] [place] [address] 05/16/2025 2:00 PM EDT [facility] [address], [address] [place] [address] Marli Godoy MD [address] [place] [address] documented as of this encounter Goals Goal Patient Goal Type Associated Problems Recent Progress Patient-Stated? Author Patient will verbalize understanding of orthotic wear , care and precautions. Occupational Therapy No Pat Bueno documented as of this encounter Visit Diagnoses Diagnosis Limited systemic sclerosis (CMS/HCC)- Primary Systemic sclerosis Dysphagia, pharyngoesophageal phase documented in this encounter Additional Health Concerns Assessment Noted Time PHQ-9 Depression Total Score: 0 09/28/19 25 3:19 PM EDT A fall risk assessment has been complete d for the patient 12/22/2024 2:46 PM EDT A Body Mass Index follow-up plan has been documented for the patient 12/25/2024 10:34 AM EDT documented as of this encounter Care Teams Clinical Medical Assistant Relationship Specialty Start Date End Date Bill Lamar MD [address] [facility] [place] [address] PCP - General 04/13/22 documented as of this encounter
--- OUTSIDE RECORDS SUMMARY | 2025-01-11 16:43 | XMS_ITS | Encounter Summary ---
Author Organization Healthcare Address [address] [place] [address] Care Team Providers Care Speech And Hearing Director Name Role Phone Bill Lamar MD Primary Care Provider [phone] Encounter Details Date Type Department Care Team (Late st Contact Info) Description 10/05/2024 Telephone [facility] [address] [place] [address] Sabiha Taylor, PharmD Social History Tobacco Use [...] drink first t cyndie in the morning (EYE-ADVERTISING SPECIALIST) to steady your nerves or to [...] as of this encounter Miscellaneous Notes * Addendum Note - Mera Morse PharmD - 12/25/2024 8:56 AM EDTAddended by: MERA MORSE on: 12/25/2024 08:56 AM Modules accepted: Orders * Telephone Encounter - Cassie Anton CPhT - 11/14/2024 10:10 AM EDT Infusion Authorization Not Required Specialty Medication: Venofer J-Code/CPT Code/S-Code: J1756 Quantity and Units of Measure Reviewed: 4 visits Diagnosis Code: D50.9/I50.23 Insurance Name: [place] Where did you submit request and how (portal/fax/phone number): Reference Number: [email or web address] 11/14/2024 Follow-Up Filling Pharmacy/SOC: Steph Will review auth status in 3 months. * Telephone Encounter - Sabiha Taylor PharmD - 10/05/2024 3:29 PM EDT [facility] has received therapy plan for medication Venofer. [facility] has contacted the patient and are in the process of completing the authorization for preferred site of care, [facility] . [facility] Specialty Education Summary Patient was assessed via phone for initiation of drug therapy Venofer for diagnosis CHIDI Secondary to heart failure. Plan for administration of therapy in infusion center and planned date of initiation: SALLIE. Anticipated filling pharmacy is [facility] . Education and Counseling Medication specific education [...] Description 02/19/2025 9:00 AM EST Ancillary Procedure [address] [address] 02/19/2025 10:00 AM EST Office Visit [address] [address] Mariam Urban MD [address] [place] [address] 04/03/2025 9:00 AM EST Appointment [facility] Pulmonary Function Testing [address] [place] [address] 04/25/2025 11:20 AM EST Office Visit [facility] [place] [address] [facility], [address] [place] [address] Sara Johnson APRN [address] [place] [address] 04/26/2025 11:10 AM EST Office Visit [address] [address] 05/16/2025 2:00 PM EDT Office Visit [address] [address] Marli Godoy MD [address] [place] [address] documented as of this encounter Goals Goal [...] documented as of this encounter Care Teams Speech And Hearing Director Relationship Specialty Start Date End Date Bill Lamar MD [address] [facility] [place] [address] PCP - General 04/13/22 documented as of this encounter
--- OUTSIDE RECORDS SUMMARY | 2025-01-11 16:43 | XMS_ITS | Encounter Summary ---
Author Organization Healthcare Address [address] [place] [address] Care Team Providers Care Air Analysis Technician Name Role Phone Bill Lamar MD Primary Care Provider [phone] Encounter Details Date Type Department Care Team (Latest Contact Info) Description 01/08/2025 Travel Social History Tobacco Use Types Packs/Day [...] first t cyndie in the morning (EYE-INSPECTOR FABRIC) to steady your nerves or to get [...] Questionnaire -9 Score 0 01/08/2025 4:23 PM EST Ivon Khan * How difficult have these problems made it for you to do your work, take care of things at home, or get along with other people? Answer Date of Assessment Author Not difficult at all 01/08/2025 4:23 PM EST Ivon Coughlin documented as of this encounter Plan of Treatment Upcoming Encounters Date Type Department Care Team (Late st Contact Info) Description 02/19/2025 9:00 AM EST Ancillary Procedure [facility] [address] [address] 02/19/2025 10:00 AM EST Office Visit [place] [address] [address] Mariam Urban MD [address] [place] [address] 04/03/2025 9:00 AM EST Appointment [facility] Pulmonary Function Testing [address] [place] [address] 04/25/2025 11:20 AM EST Office Visit [facility] [place] [address] [facility], [address] [place] [address] Sara Johnson, CLINICAL LIAISON [address] [place] [address] 04/26/2025 11:10 AM EST Office Visit [facility] [address] [address] 05/16/2025 2:00 PM EDT Office Visit [place] [address] [phone] Marli Godoy MD [address] [place] [address] documented as of this encounter Goals Goal [...] documented as of this encounter Care Teams Air Analysis Technician Relationship Specialty Start Date End Date Bill aLmar MD [address] [place] [address] PCP - General 04/13/22 documented as of this encounter
--- OUTSIDE RECORDS SUMMARY | 2025-01-11 16:43 | XMS_ITS | Encounter Summary ---
Author Organization Healthcare Address [address] [place] [address] Care Team Providers Care Gasket Supervisor Name Role Phone Bill Lamar MD Primary Care Provider [phone] Encounter Details Date Type Department Care Team (Late st Contact Info) Description 11/28/2024 Orders Only [facility] [place] [address] [place] [address] Brittaney Morales RN - Outpatient Center Social [...] drink first t cyndie in the morning (EYE-TEST AND BALANCE ENGINEER) to steady your nerves or to get [...] Description 02/19/2025 9:00 AM EST Ancillary Procedure [facility] Medicine Specialties [address] [place] [address] 02/19/2025 10:00 AM EST Office Visit [facility] Medicine Specialties [address], 2[address] [place] [address] Mariam Urban MD [address] [place] [address] 04/03/2025 9:00 AM EST Appointment [facility] Pulmonary Function Testing [address] [place] [address] 04/25/2025 11:20 AM EST Office Visit [facility] [address] [facility], [address] [place] [address] Sara Johnson, CUSTOMER EXPERIENCE ASSOCIATE [address] [place] [address] 04/26/2025 11:10 AM EST Office Visit [facility] Medicine Specialties [address] [place] [address] 05/16/2025 2:00 PM EDT Office Visit [facility] Medicine Specialties [address] [place] [address] Marli Godoy MD [address] [place] [address] documented as of this encounter [...] documented as of this encounter Care Teams Gasket Supervisor Relationship Specialty Start Date End Date Bill Lamar MD [address] [place] [address] PCP - General 04/13/22 documented as of this encounter
--- OUTSIDE RECORDS SUMMARY | 2025-01-11 16:43 | XMS_ITS | Encounter Summary ---
Author Organization [employer] ([place], [place], [place], [place], [place]) Address [address] [place] [address] Care Team Providers Care Senior Health Consultant Name Role Phone Unavailable Primary Care Provider Unavailabl e Encounter Details Date Type Department Care Team (Late st Contact Info) Description 09/29/2018 Transcribed Document [facility] Family Medicine [address] [place] [address] ProviderLeyda MD [address] [place] [address] Social History Tobacco Use Types Packs/Day Years [...] Performed On: 09/29/2018 17:00 EDT by Shahnaz Trujillo, Rn Chart Check Powerplans Initiated/Discontinued as Appropriate : Yes All Active Orders Reviewed : Yes Shahnaz Trujillo Rn - 09/29/2018 18:15 EDT documented in this encounter Plan of Treatment Not on file documented as of this encounter Visit Diagnoses Not on filedocumented in this encounter
--- OUTSIDE RECORDS SUMMARY | 2025-01-11 16:43 | XMS_ITS | Encounter Summary ---
Author Organization Healthcare Address [address] [place] [address] Care Team Providers Care Social Media Specialist Name Role Phone Bill Lamar MD Primary Care Provider [phone] Encounter Details Date Type Department Care Team [...] drink first t cyndie in the morning (EYE-EMBEDDED NURSE) to steady your nerves or to get [...] Description 02/19/2025 9:00 AM EST Ancillary Procedure [facility] Medicine Specialties [address], [address] [place] [address] 02/19/2025 10:00 AM EST Office Visit [facility] Medicine [facility] [address], [address] [place] [address] Mariam Urban MD [address] [place] [address] 04/03/2025 9:00 AM EST Appointment [facility] Pulmonary Function Testing [address] [place] [address] 04/25/2025 11:20 AM EST Office Visit [facility] [place] [address] [facility], [address] [place] [address] Sara Johnson, PERINATAL BREASTFEEDING ASSISTANT [address] [place] [address] 04/26/2025 11:10 AM EST Office Visit [facility] Medicine Specialties [address], [address] [place] [address] 05/16/2025 2:00 PM EDT Office Visit [facility] Medicine Specialties [address] [place] [address] Marli Godoy MD [address] [place] [address] documented as of this encounter Goals Goal [...] documented as of this encounter Care Teams Social Media Specialist Relationship Specialty Start Date End Date Bill Lamar MD [address] [facility] [place] [address] PCP - General 04/13/22 documented as of this encounter
--- OUTSIDE RECORDS SUMMARY | 2025-01-11 16:43 | XMS_ITS | Encounter Summary ---
Author Organization [employer] ([place], [place], [place], [place], [place]) Address [address] [place] [address] Care Team Providers Care Agriculture Worker Name Role Phone Unavailable Primary Care Provider Unavailabl e Encounter Details Date Type Department Care Team (Late st Contact Info) Description 05/25/2018 Transcribed Document [facility] Medicine [address] [place] [address] ProviderLeyda MD [address] [place] [address] Social History Tobacco Use Types Packs/Day Years [...] On: 05/25/2018 15:16 EDT by Nely Vitale Research Microbiologist Documentation Patient Disposition, General : Discharge Discharge [...]
--- OUTSIDE RECORDS SUMMARY | 2025-01-11 16:43 | XMS_ITS | Encounter Summary ---
Author Organization Healthcare Address [address] [place] [address] Care Team Providers Care Slab Lifting Engineer Name Role Phone Bill Lamar MD Primary Care Provider [phone] Encounter Details Date Type Department Care Team (Latest Contact Info) Description 01/07/2025 Travel Social History Tobacco Use Types Packs/Day [...] drink first t cyndie in the morning (EYE-MECHANICAL MAINTENANCE) to steady your nerves or to get [...] Description 02/19/2025 9:00 AM EST Ancillary Procedure [facility] Medicine Specialties [address], [address] [place] [address] 02/19/2025 10:00 AM EST Office Visit [facility] Medicine [facility] [address], [address] [place] [address] Mariam Urban MD [address] [place] [address] 04/03/2025 9:00 AM EST Appointment [facility] Pulmonary Function Testing [address] [place] [address] 04/25/2025 11:20 AM EST Office Visit [facility] [place] [address] [facility], [address] [place] [address] Sara Johnson, DISBURSEMENT CLERK [address] [place] [address] 04/26/2025 11:10 AM EST Office Visit [facility] Medicine Specialties [address], [address] [place] [address] 05/16/2025 2:00 PM EDT Office Visit [facility] Medicine Specialties [address], [address] [place] [address] Marli Godoy MD [address] [place] [address] documented as of this encounter Goals Goal [...] as of this encounter Care Teams Slab Lifting Engineer Relationship Specialty Start Date End Date Bill Lamar MD [address] [facility] [place] [address] PCP - General 04/13/22 documented as of this encounter
--- OUTSIDE RECORDS SUMMARY | 2025-01-11 16:43 | XMS_ITS | Encounter Summary ---
Author Organization Healthcare Address [address] [place] [address] Care Team Providers Care Mophead Sewer Name Role Phone Bill Lamar MD Primary Care Provider [phone] Encounter Details Date Type Department Care Team [...] drink first t cyndie in the morning (EYE-PROGRAM RESEARCH SPECIALIST) to steady your nerves or to [...] Description 02/19/2025 9:00 AM EST Ancillary Procedure [facility] Medicine Specialties [address], 2nd [place] [address] 02/19/2025 10:00 AM EST Office Visit [facility] Medicine [facility] [address], [address] [place] [address] Mariam Urban MD [address] [place] [address] 04/03/2025 9:00 AM EST Appointment [facility] Pulmonary Function Testing [address] [place] [address] 04/25/2025 11:20 AM EST Office Visit [facility] [place] [address] [facility], [address] [place] [address] Sara Johnson, STRUCTURAL WORKER [address] [place] [address] 04/26/2025 11:10 AM EST Office Visit [facility] Medicine Specialties [address], 2nd [place] [address] 05/16/2025 2:00 PM EDT Office Visit [facility] Medicine Specialties [address], [address]nd [place] [address] Marli Godoy MD [address] [place] [address] documented as of this encounter Goals Goal [...] documented as of this encounter Care Teams Mophead Sewer Relationship Specialty Start Date End Date Bill Lamar MD [address] [facility] [place] [address] PCP - General 04/13/22 documented as of this encounter
--- OUTSIDE RECORDS SUMMARY | 2025-01-11 16:43 | XMS_ITS | Encounter Summary ---
Author Organization Healthcare Address [address] [place] [address] Care Team Providers Care Maintenance Controller Name Role Phone Bill Lamar MD Primary Care Provider [phone] Encounter Details Date Type Department Care Team [...] drink first t cyndie in the morning (EYE-MACHINE PACKAGE SEALER) to steady your nerves or to get [...] [facility]ties [address], [address]nd [place] [address] 02/19/2025 10:00 AM EST Office Visit [facility] Medicine [facility] [address], [address] [place] [address] Mariam Urban MD [address] [place] [address] 04/03/2025 9:00 AM EST Appointment [facility] Pulmonary Function Testing [address] [place] [address] 04/25/2025 11:20 AM EST Office Visit [facility] [place] [address] [address] [facility], [address] [place] [address] Sara Johnson, DRILLING FIELD SPECIALIST [address] [place] [address] 04/26/2025 11:10 AM EST Office Visit [facility] Medicine Specialties [address], 2nd [place] [address] 05/16/2025 2:00 PM EDT Office Visit [facility] Medicine Specialties [address], [address]nd [place] [address] Marli Godoy MD [address] [place] [address] documented as of this encounter Goals Goal [...] documented as of this encounter Care Teams Maintenance Controller Relationship Specialty Start Date End Date Bill Lamar MD 200 [facility] [place] [address] PCP - General 04/13/22 documented as of this encounter
--- OUTSIDE RECORDS SUMMARY | 2025-01-11 16:43 | XMS_ITS | Encounter Summary ---
Author Organization [employer] ([place], [place], [place], [place], [place]) Address [address] [place] [address] Care Team Providers Care Cv Tech Name Role Phone Unavailable Primary Care Provider Unavailabl e Encounter Details Date Type Department Care Team (Late st Contact Info) Description 09/29/2018 Transcribed Document [facility] [place] [facility] [place] [address] ProviderLeyda MD [address] [place] [id number] Social History Tobacco Use Types Packs/Day Years Used Date Smoking Tobacco: Never Assessed Comments Unknown Sex and Gender Information Value Date Recorded Sex Assigned at Not on file Legal Sex Female 6:21 PM CDT Gender Identity Not on file Sexual Orientation Not on file documented as of this encounter Miscellaneous Notes * Cerner Conversion Note - Historical ProviderMD - 09/29/2018 3:35 PM CDT Pain [...] EDT Pain Scale Intensity : 4 Shahnaz Trujillo, Carlos - 09/29/2018 18:14 EDT Image 4 - Images currently included in the form version of this document have not been included in the text rendition version of the form. documented in this encounter Plan of Treatment Not on file documented as of this encounter Visit Diagnoses Not on filedocumented in this encounter
--- OUTSIDE RECORDS SUMMARY | 2025-01-11 16:43 | XMS_ITS | Encounter Summary ---
Author Organization Healthcare Address [address] [place] [address] Care Team Providers Care Eeo Officer Name Role Phone Bill Lamar MD Primary Care Provider [phone] Encounter Details Date Type Department Care Team (Late st Contact Info) Description 01/09/2025 Orders Only [facility] [place] [address] [place] [address] Brittaney Morales RN - Outpatient Center Social [...] drink first t cyndie in the morning (EYE-ELECTRICAL INTERN) to steady your nerves or to get [...] Description 02/19/2025 9:00 AM EST Ancillary Procedure [address] [address] 02/19/2025 10:00 AM EST Office Visit [address] [address] Mariam Urban MD [address] [place] [address] 04/03/2025 9:00 AM EST Appointment [facility] Pulmonary Function Testing [address] [place] [address] 04/25/2025 11:20 AM EST Office Visit [facility] [place] [address] [address] [facility], [address] [place] [address] Sara Johnson APRN [address] [place] [address] 04/26/2025 11:10 AM EST Office Visit [address] [address] 05/16/2025 2:00 PM EDT Office Visit [address] [address] Marli Godoy MD [address] [place] [address] documented as of this encounter [...] documented as of this encounter Care Teams Eeo Officer Relationship Specialty Start Date End Date Bill Lamar MD [address] [place] [address] PCP - General 04/13/22 documented as of this encounter
--- OUTSIDE RECORDS SUMMARY | 2025-01-11 16:43 | XMS_ITS | Encounter Summary ---
Author Organization Healthcare Address [address] [place] [address] Care Team Providers Care Coal Cutting Machine Operator Name Role Phone Bill Lamar MD Primary Care Provider [phone] Encounter Details Date Type Department Care Team [...] drink first t cyndie in the morning (EYE-FAMILY DAY CARE PROVIDER) to steady your nerves or to get [...] Description 02/19/2025 9:00 AM EST Ancillary Procedure [facility] Medicine Specialties [address], 2nd [place] [address] 02/19/2025 10:00 AM EST Office Visit [facility] Medicine [facility] [address], [address] [place] [address] Mariam Urban MD [address] [place] [address] 04/03/2025 9:00 AM EST Appointment [facility] Pulmonary Function Testing 800 [place] [address] 04/25/2025 11:20 AM EST Office Visit [facility] [place] [address] [address] [facility], [address] [place] [address] Sara Johnson, CLIENT COORDINATOR [address] [place] [address] 04/26/2025 11:10 AM EST Office Visit [facility] Medicine Specialties [address], 2nd [place] [address] 05/16/2025 2:00 PM EDT Office Visit [facility] Medicine Specialties [address], 2nd [place] [address] Marli Godoy MD [address] [place] [address] documented as of this encounter Goals Goal [...] documented as of this encounter Care Teams Coal Cutting Machine Operator Relationship Specialty Start Date End Date Bill Lamar MD 200 [facility] [place] [address] PCP - General 04/13/22 documented as of this encounter
--- OUTSIDE RECORDS SUMMARY | 2025-01-11 16:43 | XMS_ITS | Encounter Summary ---
Author Organization Healthcare Address [address] [place] [address] Care Team Providers Care Plate Inspector Name Role Phone Bill Lamar MD Primary Care Provider [phone] Encounter Details Date Type Department Care Team (Late Contact Info) Description 08/27/2024 Orders Only External Location [address] [place] [address] Provider, External Social History Tobacco Use Types [...] Description 02/19/2025 9:00 AM EST Ancillary Procedure [facility] Medicine Specialties [address], 2nd [place] [address] 02/19/2025 10:00 AM EST [facility] Specialties [address], [address]nd [place] [address] Mariam Urban MD [address] [place] [address] 04/03/2025 9:00 AM EST Appointment [facility] Pulmonary Function Testing [address] [place] [address] 04/25/2025 11:20 AM EST Office Visit [facility] [place] [address] , [address] [place] [address] Sara Johnson, AUTOMOBILE PAINTER [address] [place] [address] 04/26/2025 11:10 AM EST Office Visit [facility] Medicine Specialties [address], [address] [place] [address] 05/16/2025 2:00 PM EDT Office Visit [facility] Medicine Specialties [address], [address] [place] [address] Marli Godoy MD [address] [place] [address] documented as of this encounter Goals Goal Patient Goal Type Associated Problems Recent Progress Patient-Stated? Author Patient will verbalize understanding of orthotic wear , care and precautions. Occupational Therapy No Pat Bueno documented as of this encounter Procedures Procedure Name Priority Date/Time Associated Diagnosis Comments POC US ECHOCARDIOGRAPHY COMPLETE W DOPPLER AND COLOR 08/27/2024 11:05 AM EDT documented in this encounter Results * POC US Echocardiography Complete W Doppler and Color (08/27/2024 11:05 AM EDT) Anatomical Region Laterality Modality Other 08/27/2024 11:0 5 AM EDT us External Provider IMG POINT OF CARE ULTRASOUND E dited Result - Final documented in this encounter Visit Diagnoses Not on filedocumented in this encounter Additional Health Concerns Assessment Noted Time A fall risk assessment has been complete d for the patient 06/15/2022 3:06 PM EDT A Body Mass Index follow-up plan has been documented for the patient 11/30/2023 8:42 AM EDT documented as of this encounter Care Teams Plate Inspector Relationship Specialty Start Date End Date Bill Lamar MD 200 [facility] [place] [address] PCP - General 04/13/22 documented as of this encounter
--- OUTSIDE RECORDS SUMMARY | 2025-01-11 16:43 | XMS_ITS | Encounter Summary ---
Author Organization [employer] ([place], [place], [place], [place], [place]) Address [address] [place] [address] Care Team Providers Care Cutter Head Sharpener Name Role Phone Unavailable Primary Care Provider Unavailabl e Encounter Details Date Type Department Care Team (Late st Contact Info) Description 05/25/2018 Transcribed Document [facility] [place] Medicine [facility] [place] [address] ProviderLeyda MD [address] [place] [phone] Social History Tobacco Use Types Packs/Day Years [...] APONTE /Sex: 1975 Female Med Rec #: [id number] Physician: ZINA STEELE MD-GAE Financial #: [id number] Pt. Type: O Room/Bed: [facility] Admit/Disch: 05/25/18 12:46:00 - 05/25/18 16:10:00 Institution: [facility] PACU Case Times Entry 1 In PACU I 05/25/18 15:03:00 Ready for PACU 05/25/18 16:16:00 Discharge Discharge from PACU 05/25/18 16:16:00 Kath [facility] PACU Case Times Audit 05/25/18 16:17:31 Prosthodontist/Owner: [id number] Modifier: [id number] <+> 1 Ready for PACU Discharge <+> 1 Discharge from PACU I Finalized By: Nely Vitale Rn Document Signatures Signed By: Nely Vitale Rn 05/25/18 16:17 Electronically signed by Ernesto Betancourt Conversion Medical Record Librarians Teacher Cerner at 06/22/2022 9:34 AM CDT documented in this encounter Plan of Treatment Not on file documented as of this encounter Visit Diagnoses Not on filedocumented in this encounter
--- OUTSIDE RECORDS SUMMARY | 2025-01-11 16:43 | XMS_ITS | Encounter Summary ---
Author Organization [employer] ([place], [place], [place], [place]) Address [address] [place] [address] Care Team Providers Care Golf Club Maker Name Role Phone Unavailable Primary Care Provider Unavailabl e Encounter Details Date Type Department Care Team (Late st Contact Info) Description 09/29/2018 Transcribed Document [facility] [facility] [place] [address] ProviderLeyda MD [address] [place] [phone] Social History Tobacco Use Types Packs/Day Years [...]
--- OUTSIDE RECORDS SUMMARY | 2025-01-11 16:43 | XMS_ITS | Clinical Summary ---
Author Organization [facility] Address [address] [place] [address] Care Team Providers Care Cracker And Cookie Machine Operator Name Role Phone Bill Lamar MD Primary Care Provider [phone] Allergies Active Allergy Reactions Criticality Noted Date Comments Lamotrigine Hives,Palpitations High 08/31/2021 [place] Other (See Comments) 10/28/2021 Swollen neck Medications acetaminophen (TYLENOL) 650 MG 8 hr tablet Active famotidine (PEPCID) 40 MG tablet Active Gpdqhh-Oiykh-Gdih Ac-Ca Fructo (Move Free Joint Health Advance) [...] Most Recently Relevant to Health Maintenance Insurance [facility] PPO Care Teams Cracker And Cookie Machine Operator Relationship Specialty Start Date End Date Bill Lamar MD PCP - General Internal Medicine 11/05/21
--- OUTSIDE RECORDS SUMMARY | 2025-01-11 16:43 | XMS_ITS | Encounter Summary ---
Author Organization [employer] ([place], [place], [place], [place]) Address [address] [place] [address] Care Team Providers Care Parts Department Supervisor Name Role Phone Unavailable Primary Care Provider Unavailabl e Encounter Details Date Type Department Care Team (Late st Contact Info) Description 05/25/2018 Transcribed Document [facility] [place] Medicine [address] [place] [address] ProviderLeyda MD [address] [place] [phone] Social History Tobacco Use Types Packs/Day Years [...] Electronically signed by Ernesto Betancourt Conversion Supervisor Assembly Room Cerner at 06/22/2022 9:26 AM CDT documented in this encounter Plan of Treatment Not on file documented as of this encounter Visit Diagnoses Not on filedocumented in this encounter
--- OUTSIDE RECORDS SUMMARY | 2025-01-11 16:43 | XMS_ITS | Encounter Summary ---
Author Organization [employer] ([place], [place], [place], [place], [place]) Address [address] [place] [address] Care Team Providers Care Commercial Floor Covering Installer Name Role Phone Unavailable Primary Care Provider Unavailabl e Encounter Details Date Type Department Care Team (Late st Contact Info) Description 09/29/2018 Transcribed Document [facility] Family Medicine [address] [place] [address] ProviderLeyda MD [address] [place] [phone] Social History Tobacco Use Types Packs/Day Years Used Date Smoking Tobacco: Never Assessed Comments Unknown Sex and Gender Information Value Date Recorded Sex Assigned at Not on file Legal Sex Female 6:21 PM CDT Gender Identity Not on file Sexual Orientation Not on file documented as of this encounter Miscellaneous Notes * Cerner Conversion Note - Historical ProviderMD - 09/29/2018 12:13 PM CDT Pre Procedure Adult Entered On: 09/29/2018 12:18 EDT Performed On: 09/29/2018 12:13 EDT by Starr Silva Rn Height and Weight, Clinical Dosing Height Source : Stated Height Entry Format : Vernon Height, Feet : 5 ft(Converted to: 152 cm, 60 Inch) Height, Inches : 1 Inch(Converted to: 0 ft 1 Inch, 2.54 cm) Clinical Height : 154.94 cm Weight Source : Standing scale Weight Entry Format : Vernon Clinical Dosing Weight : 79.55 kg Weight, Pounds : 175 lb Body Surface Area (BSA) : 1.79 m2 Body Mass Index : 33.1 kg/m2 (HI) [place] Body Weight : 47 kg Starr Silva Rn - 09/29/2018 12:13 EDT Health Histories Smoking Status : Never (less than 100 in lifetime; none in last 30 days) Smokeless Tobacco Status : Never Implant/Device Type, Dolly Pusher and Model : wong Starr Silva Rn [...] Obtained From : Patient Primary Language : Greenlandic Preferred Communication Mode : Verbal Communication Barrier [...] Scale Risk Level : 0-24 Low Risk Villanueva Fall Interventions : Adequate lighting, Bed in [...] commands Buzz Best Verbal Response : Oriented Prospect Eye Opening Response : Spontaneous Buzz Coma Score : 15 Starr Silva Rn - 09/29/2018 12:13 EDT Electronically signed by Ernesto Betancourt Conversion Cigarette Filter Inspector Cerner at 06/22/2022 9:17 AM CDT documented in this encounter Plan of Treatment Not on file documented as of this encounter Visit Diagnoses Not on filedocumented in this encounter
--- OUTSIDE RECORDS SUMMARY | 2025-01-11 16:43 | XMS_ITS | Encounter Summary ---
Author Organization Healthcare Address [address] [place] [address] Care Team Providers Care Multigraph Operator Name Role Phone Bill Lamar MD Primary Care Provider [phone] Encounter Details Date Type Department Care Team (Latest Contact Info) Description 12/24/2024 Travel Social History Tobacco Use Types Packs/Day [...] drink first t cyndie in the morning (EYE-AUTO MOTOR MECHANIC) to steady your nerves or to [...] Description 02/19/2025 9:00 AM EST Ancillary Procedure [facility] Medicine Specialties [address], 2nd [place] [address] 02/19/2025 10:00 AM EST Office Visit [facility] Medicine [facility] [address], [address] [place] [address] Mariam Urban MD [address] [place] [address] 04/03/2025 9:00 AM EST Appointment [facility] Pulmonary Function Testing [address] [place] [address] 04/25/2025 11:20 AM EST Office Visit [facility] [place] [address] [address] [facility], [address] [place] [address] Sara Johnson, PAYROLL AND BENEFITS COORDINATOR [address] [place] [address] 04/26/2025 11:10 AM EST Office Visit [facility] Medicine Specialties [address], [address]nd [place] [address] 05/16/2025 2:00 PM EDT Office Visit [facility] Medicine Specialties [address], [address] [place] [address] Marli Godoy MD [address] [place] [address] documented as of this encounter Goals Goal [...] documented as of this encounter Care Teams Multigraph Operator Relationship Specialty Start Date End Date Bill Lamar MD [address] [facility] [place] [address] PCP - General 04/13/22 documented as of this encounter
--- OUTSIDE RECORDS SUMMARY | 2025-01-11 16:43 | XMS_ITS | Encounter Summary ---
Author Organization Healthcare Address [address] [place] [place] [address] Care Team Providers Care Vehicle Insurance Agent Name Role Phone Bill Lamar MD Primary Care Provider [phone] Encounter Details Date Type Department Care Team [...] Have you had a drink first t cydnie in the morning (EYE-TESTER ROCKET ENGINE) to steady your nerves or to get [...] AM EST Ancillary Procedure [facility] Medicine Specialties [address], [address]nd [place] [address] 02/19/2025 10:00 AM EST Office Visit [facility] Medicine [facility] [address], [address] [place] [address] Mariam Urban MD [address] [place] [address] 04/03/2025 9:00 AM EST Appointment [facility] Pulmonary Function Testing [address] [place] [address] 04/25/2025 11:20 AM EST Office Visit [facility] [place] [address] [address] [facility], [address] [place] [address] Sara Johnson, INSPECTOR AND MENDER [address] [place] [address] 04/26/2025 11:10 AM EST Office Visit [facility] Medicine Specialties [address], [address]nd [place] [address] 05/16/2025 2:00 PM EDT Office Visit [facility] Medicine Specialties [address], [address] [place] [address] Marli Godoy MD [address] [place] [address] documented as of this encounter Goals Goal [...] documented as of this encounter Care Teams Vehicle Insurance Agent Relationship Specialty Start Date End Date Bill Lamar MD [address] [facility] [place] [address] PCP - General 04/13/22 documented as of this encounter
--- OUTSIDE RECORDS SUMMARY | 2025-01-11 16:43 | XMS_ITS | Encounter Summary ---
Author Organization Healthcare Address [address] [place] [address] Care Team Providers Care Folder Machine Adjuster Name Role Phone Bill Lamar MD Primary Care Provider [phone] Encounter Details Date Type Department Care Team [...] first t cyndie in the morning (EYE-SILK SCREEN OPERATOR) to steady your nerves or to [...] Description 02/19/2025 9:00 AM EST Ancillary Procedure [facility] Medicine Specialties [address], [address] [place] [address] 02/19/2025 10:00 AM EST Office Visit [facility] Medicine [facility] [address], [address] [place] [address] Mariam Urban MD [address] [place] [address] 04/03/2025 9:00 AM EST Appointment [facility] Pulmonary Function Testing [address] [place] [address] 04/25/2025 11:20 AM EST Office Visit [facility] [place] [address] [address] [facility], [address] [place] [address] Sara Johnson, PANEL SAW OPERATOR [address] [place] [address] 04/26/2025 11:10 AM EST Office Visit [facility] Medicine Specialties [address], [address] [place] [address] 05/16/2025 2:00 PM EDT Office Visit [facility] Medicine Specialties [address], [address] [place] [address] Marli Godoy MD [address] [place] [address] documented as of this encounter Goals Goal [...] documented as of this encounter Care Teams Folder Machine Adjuster Relationship Specialty Start Date End Date Bill Lamar MD [address] [facility] [place] [address] PCP - General 04/13/22 documented as of this encounter
--- OUTSIDE RECORDS SUMMARY | 2025-01-11 16:43 | XMS_ITS | Encounter Summary ---
Author Organization Healthcare Address [address] [place] [address] Care Team Providers Care Glass Toughening Operator Name Role Phone Bill Lamar MD Primary Care Provider [phone] Encounter Details Date Type Department Care Team (Late st Contact Info) Description 11/29/2024 Telephone P[facility] G Infusion [address] [facility] Room [address] [place] [address] Aisha Dangelo, MARKETING COMMUNICATIONS LEADER, [address] [id number] Social History Tobacco Use Types Packs/Day Years [...] drink first t cyndie in the morning (EYE-SERVICE ASSOCIATE) to steady your nerves or to get [...] Pharmacy & Infusion Services Pre-Infusion Screening Melinda Campbell Fadi has an appointment for venofer infusion on 11/30/24. CAROLE called patient to completepre-infusion screening questions. Unable to speak with patient. Left voicemail to remind patient of appt date, time, and location. Duration of phone call: 1 minutes Aisha Dangelo APRN, [facility] documented in this encounter Plan of Treatment Upcoming Encounters Date Type Department Care Team ([facility] st Contact Info) Description 02/19/2025 9:00 AM EST Ancillary Procedure [facility] Medicine Specialties [address], [address]nd [place] [address] 02/19/2025 10:00 AM EST Office Visit [facility] Medicine Specialties [address]nd [place] [address] Mariam Urban MD [address] [place] [address] 04/03/2025 9:00 AM EST Appointment [facility] Pulmonary Function Testing [address] [place] [address] 04/25/2025 11:20 AM EST Office Visit [facility] [place] [address] [facility], [address] [place] [phone] Sara Johnson, CAROLE [address] [place] [address] 04/26/2025 11:10 AM EST Office Visit [facility] Medicine Specialties [address], [address] [place] [address] 05/16/2025 2:00 PM EDT Office Visit [facility] Medicine Specialties [address] [place] [address] Marli Godoy MD [address] [facility] [address] [place] [address] documented as of this encounter [...] documented as of this encounter Care Teams Glass Toughening Operator Relationship Specialty Start Date End Date Bill Lamar MD [address] [facility] [place] [address] PCP - General 04/13/22 documented as of this encounter
--- OUTSIDE RECORDS SUMMARY | 2025-01-11 16:43 | XMS_ITS | Encounter Summary ---
Author Organization Healthcare Address [address] [place] [address] Care Team Providers Care Inside Outside Sales Representative Name Role Phone Bill Lamar MD Primary Care Provider [phone] Encounter Details Date Type Department Care Team (Latest Contact Info) Description 12/22/2024 Travel Social History Tobacco Use Types Packs/Day [...] drink first t cyndie in the morning (EYE-HEAD LINEMAN) to steady your nerves or to get [...] Procedure [facility] Medicine Specialties [address] [place] [address] 02/19/2025 10:00 AM EST Office Visit [facility] [address], [address] [place] [address] Mariam Urban MD [address] [place] [address] 04/03/2025 9:00 AM EST Appointment [facility] Pulmonary Function Testing 800 [place] [address] 04/25/2025 11:20 AM EST Office Visit [facility] [place] [address] [facility], [address] [place] [address] Sara Johnson, INSPECTOR AND CLIPPER [address] [place] [address] 04/26/2025 11:10 AM EST Office Visit [facility] Specialties [address] [place] [address] 05/16/2025 2:00 PM EDT Office Visit [facility] Specialties [address] [place] [address] Marli Godoy MD [address] [place] [address] documented as of this encounter Goals Goal [...] documented as of this encounter Care Teams Inside Outside Sales Representative Relationship Specialty Start Date End Date Bill Lamar MD [address] [facility] [place] [address] PCP - General 04/13/22 documented as of this encounter
--- OUTSIDE RECORDS SUMMARY | 2025-01-11 16:43 | XMS_ITS | Encounter Summary ---
Author Organization [employer] ([place], [place], [place], [place], [place]) Address [address] [place] [address] Care Team Providers Care Manager Photography Name Role Phone Unavailable Primary Care Provider Unavailabl e Encounter Details Date Type Department Care Team (Late st Contact Info) Description 09/29/2018 Transcribed Document [facility] [facility] [address] ProviderLeyda MD [address] [place] [address] Social History Tobacco Use Types Packs/Day Years Used Date Smoking Tobacco: Never Assessed Comments Unknown Sex and Gender Information Value Date Recorded Sex Assigned at Not on file Legal Sex Female 6:21 PM CDT Gender Identity Not on file Sexual Orientation Not on file documented as of this encounter Miscellaneous Notes * Cerner Conversion Note - Historical ProviderMD - 09/29/2018 11:26 AM CDT Admission [...] Obtained From : Patient Primary Language : Argentine Preferred Communication Mode : Verbal Communication Barrier [...] Scale Risk Level : 25-45 Medium Risk Curlew Fall Interventions : Adequate lighting, Assistive devices [...] Smokeless Tobacco Status : Never Implant/Device Type, Wireworker and Model : wong Shahnaz Trujillo Rn [...] Source : Stated Height Entry Format : Luce Height, Feet : 5 ft(Converted to: 152 cm, 60 Inch) Height, Inches : 1 Inch(Converted to: 0 ft 1 Inch, 2.54 cm) Clinical Height : 154.94 cm Weight Source : Standing scale Weight Entry Format : Luce Clinical Dosing Weight : 79.55 kg Weight, Pounds : 175 lb Body Surface Area (BSA) : 1.79 m2 Body Mass Index : 33.1 kg/m2 (HI) [place] Body Weight : 47 kg Shahnaz Trujillo [...]
--- OUTSIDE RECORDS SUMMARY | 2025-01-11 16:43 | XMS_ITS | Encounter Summary ---
Author Organization [employer] ([place], [place], [place], [place], [place]) Address [address] [place] [address] Care Team Providers Care Timber Robber Name Role Phone Unavailable Primary Care Provider Unavailabl e Encounter Details Date Type Department Care Team (Late st Contact Info) Description 09/29/2018 Transcribed Document [facility] [place] [address] [place] [address] ProviderLeyda MD [address] [place] [address] Social History Tobacco Use Types Packs/Day Years [...] On: 09/29/2018 11:53 EDT by Carissa Pulido [facility] Unit Coord Height and Weight, Clinical Dosing Weight Source : Standing scale Weight Entry Format : [place] Clinical Dosing Weight : 79.55 kg Weight, Pounds : 175 lb Carissa Pulido [facility] Unit Coord - 09/29/2018 11:53 EDT documented in this encounter Plan of Treatment Not on file documented as of this encounter Visit Diagnoses Not on filedocumented in this encounter
--- OUTSIDE RECORDS SUMMARY | 2025-01-11 16:44 | XMS_ITS | Encounter Summary ---
Author Organization [employer] ([place], [place], [place], [place], [place]) Address [address] [place] [address] Care Team Providers Care Candy Cutter Machine Name Role Phone Unavailable Primary Care Provider Unavailabl e Encounter Details Date Type Department Care Team (Late st Contact Info) Description 05/25/2018 Transcribed Document [facility] [place] Family Medicine Counts include 234 beds at the [facility] [place] [address] ProviderLeyda MD [address] [place] [phone] Social History Tobacco Use Types Packs/Day Years [...] APONTE /Sex: 1975 Female Med Rec #: [id number] Physician: ZINA STEELE MD-GAE Financial #: [id number] Pt. Type: O Room/Bed: [facility] Admit/Disch: 05/25/18 12:46:00 - Institution: [facility] PreOp Case Times Entry 1 In Preop 05/25/18 13:03:00 Ready for Holding n/a Room Patient Ready for 05/25/18 13:34:00 Surgery Patient Out of Preop 05/25/18 13:34:00 Patient Out of n/a Holding Room [facility] PreOp Case Times Audit 05/25/18 13:34:42 Coater Operator: DANI Modifier: DANI <+> 1 Patient Out of Preop <+> 1 Patient Ready for Surgery Finalized By: KAMALA MOISE RN Document Signatures Signed By: KAMALA MOISE RN 05/25/18 13:35 documented in this encounter Plan of Treatment Not on file documented as of this encounter Visit Diagnoses Not on filedocumented in this encounter
--- OUTSIDE RECORDS SUMMARY | 2025-01-11 16:44 | XMS_ITS | Encounter Summary ---
Author Organization [employer] ([place], [place], [place], [place], [place]) Address [address] [place] [address] Care Team Providers Care Underground Utility Locator Name Role Phone Unavailable Primary Care Provider Unavailabl e Encounter Details Date Type Department Care Team (Late st Contact Info) Description 05/25/2018 Transcribed Document [facility] [place] [facility] [place] [address] ProviderLeyda MD [address] [place] [id number] Social History Tobacco Use Types Packs/Day Years Used Date Smoking Tobacco: Never Assessed Comments Unknown Sex and Gender Information Value Date Recorded Sex Assigned at Not on file Legal Sex Female 6:21 PM CDT Gender Identity Not on file Sexual Orientation Not on file documented as of this encounter Miscellaneous Notes * Cerner Conversion Note - Historical ProviderMD - 05/25/2018 3:50 PM CDT Nursing [...] - 05/25/2018 15:50 EDT Electronically signed by Serafin [facility] Conversion Pad Making Machine Operator Cerner at 06/22/2022 9:22 AM CDT documented in this encounter Plan of Treatment Not on file documented as of this encounter Visit Diagnoses Not on filedocumented in this encounter
--- OUTSIDE RECORDS SUMMARY | 2025-01-11 16:44 | XMS_ITS | Encounter Summary ---
Author Organization [employer] ([place], [place], [place], [place], [place]) Address [address] [place] [address] Care Team Providers Care Screw Machine Setter Name Role Phone Unavailable Primary Care Provider Unavailabl e Encounter Details Date Type Department Care Team (Late st Contact Info) Description 05/25/2018 Transcribed Document [facility] [place] [address] ProviderLeyda MD [address] [place] [address] Social History Tobacco Use Types Packs/Day [...] Clark MD - 05/25/2018 3:53 PM CDT [address] Qasim Capone, [place] [address] Patient Copy Patient Information: Name: MELINDA APONTE Current Date: 05/25/2018 15:53:57 : 1975 Patient Address: [facility] [place] [facility] [address] Patient Attending Physician: ZINA STEELE MD-NDJosef Primary Care Provider: Bill Lamar MD Primary Care Provider Discharge Diagnosis: 1:Epigastric pain Weight on Admission: 170 lb, 2 oz Comment: Follow-up Instructions: With: Address: When: [place] [address] Business (1) Within As needed Comments: [...] getting enough exercise. ??? Smoking. ??? Taking hmnn-ded-susrtnl pain medicines, like aspirin and ibuprofen. SYMPTOMS [...] 11/18/2004 Document Revised: 02/26/2014 Document Reviewed: 01/16/2014 [employer] Interactive Patient Education ? 2017 [employer]. Colonoscopy, Adult, Care After This sheet gives [...] slower pace than normal. ? Eat soft, fqsg-dr-sqsvkh foods. ? Rest often. ??? Take lcsq-gct-dlpvdxt or prescription medicines only as told by [...] 10/05/2004 Document Revised: 11/15/2016 Document Reviewed: 05/04/2016 [employer] Interactive Patient Education ? 2017 [employer] Hiatal Hernia A hiatal hernia occurs [...] symptoms. ??? Medicines. These may include: ? Hlgh-ftv-imfjmmr antacids. ? Medicines that make your stomach [...] These may include: ? Fatty foods. ? Sylvarena fruits. ? Other foods and drinks that [...] 05/13/2004 Document Revised: 06/14/2016 Document Reviewed: 02/08/2014 [employer] Interactive Patient Education ? 2017 [employer] Gastric Polyps A gastric polyp, also [...] Follow these instructions at home: ??? Take fnxr-xdx-smptwnf and prescription medicines only as told by [...] 02/07/2013 Document Revised: 07/12/2016 Document Reviewed: 03/07/2016 [employer] Interactive Patient Education ? 2017 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 ? [place] or spicy foods. ? Chocolate and peppermint. General instructions ??? Take nwly-sch-cbwfnxi and prescription medicines only as told by [...] broken bone while taking this medicine terminal system operator or more than once per day. [...] by infection with Helicobacter pylori (H. pylori). Qtxf-wtx-ajwkqlr (OTC) omeprazole is used to help control [...] medicine exactly as directed. Use Prilosec OTC (hgdy-kqn-xsdmzoq) exactly as directed on the label, or [...] may report side effects to FDA at 0-063-TSZ-1853. What other drugs will affect omeprazole? Sometimes [...] may affect omeprazole. This includes prescription and cwxe-ucg-nzurlwa medicines, vitamins, and herbal products. Not all [...] to ensure that the information provided by [employer]. ('[employer]') is accurate, up-to-date, and complete, but no guarantee is made to that effect. Drug information contained herein may be time sensitive. [employer] information has been compiled for use by healthcare practitioners and consumers in the [place] and therefore [employer] does not warrant that uses outside of the [place] are appropriate, unless specifically indicated otherwise. [employer] drug information does not endorse drugs, diagnose patients or recommend therapy. [employer] drug information is an informational resource designed [...] effective or appropriate for any given patient. [employer] does not assume any responsibility for any aspect of healthcare administered with the aid of information [employer] provides. The information contained herein is not intended to cover all possible uses, directions, precautions, warnings, drug interactions, allergic reactions, or adverse effects. If you have questions about the drugs you are taking, check with your doctor, nurse or pharmacist. Copyright 4638-3550 [employer]. Version: 19.01. Revision Date: 08/29/2017. hyoscyamine (genaro oh NICOLE a anjana) Dorian Cuevas, Hyosyne, Levbid, Levsin, NuLev, Symax SR What is [...] may report side effects to FDA at 0-128-MPU-6340. What other drugs will affect hyoscyamine? Tell [...] drugs may affect hyoscyamine, including prescription and nbuw-yyz-tcesqtu medicines, vitamins, and herbal products. Not all [...] to ensure that the information provided by [employer]. ('[employer]') is accurate, up-to-date, and complete, but no guarantee is made to that effect. Drug information contained herein may be time sensitive. [employer] information has been compiled for use by healthcare practitioners and consumers in the [place] and therefore [employer] does not warrant that uses outside of the [place] are appropriate, unless specifically indicated otherwise. [employer] drug information does not endorse drugs, diagnose patients or recommend therapy. [employer] drug information is an informational resource designed [...] effective or appropriate for any given patient. [employer] does not assume any responsibility for any aspect of healthcare administered with the aid of information [employer] provides. The information contained herein is not intended to cover all possible uses, directions, precautions, warnings, drug interactions, allergic reactions, or adverse effects. If you have questions about the drugs you are taking, check with your doctor, nurse or pharmacist. Copyright 7883-2522 [employer]. Version: 7.01. Revision Date: 01/24/2018. linaclotide (LACEY [...] may report side effects to FDA at 1-090-OGB-7475. What other drugs will affect linaclotide? Other drugs may interact with linaclotide, including prescription, ytex-muf-fgykoia, vitamin, and herbal products. Tell your doctor [...] to ensure that the information provided by [employer]. ('[employer]um') is accurate, up-to-date, and complete, but no guarantee is made to that effect. Drug information contained herein may be time sensitive. [employer] information has been compiled for use by healthcare practitioners and consumers in the [place] and therefore [employer] does not warrant that uses outside of the [place] are appropriate, unless specifically indicated otherwise. [employer]'s drug information does not endorse drugs, diagnose patients or recommend therapy. [employer]'s drug information is an informational resource designed [...] effective or appropriate for any given patient. [facility] does not assume any responsibility for any aspect of healthcare administered with the aid of information [facility] provides. The information contained herein is not intended to cover all possible uses, directions, precautions, warnings, drug interactions, allergic reactions, or adverse effects. If you have questions about the drugs you are taking, check with your doctor, nurse or pharmacist. Copyright 6811-4206 [facility]. Version: 4.02. Revision Date: 11/23/2016. CIGARETTE SMOKING: The facts are clear, cigarette smoking will shorten your life. Smoking can cause many illnesses along the way. As a healthcare provider, we recommend that you stop smoking. Assistance with quitting is available by contacting 1-088-WGZYLingoramiNOW. This is a free resource providing counseling, [...] Be sure to sign up for the [employer] patient portal, which gives you 27/09 access to your medical information ??? including these discharge instructions ??? using your computer, smartphone, or tablet. Just go to Netviewer to get started. Questions? Call . [facility] would like to thank you for allowing us to assist you with your healthcare needs. HECTOR [place] SHANNON CRAFT, (or outside industrial sales representative) have received the above patient education materials/instructions and have verbalized understanding: Patient Signature _ Date/Time Patient Smoking Pipe Liner Signature (if needed) Date/Time Clinician/Hospital Smoking Pipe Liner Signature (if needed) Date/Time documented in this encounter Plan of Treatment Not on file documented as of this encounter Visit Diagnoses Not on filedocumented in this encounter
--- OUTSIDE RECORDS SUMMARY | 2025-01-11 16:44 | XMS_ITS | Encounter Summary ---
Author Organization [employer] ([place], [place], [place], [place], [place]) Address [address] [place] [address] Care Team Providers Care Political Aide Name Role Phone Unavailable Primary Care Provider Unavailabl e Encounter Details Date Type Department Care Team (Late st Contact Info) Description 05/25/2018 Transcribed Document [facility] [place] [facility] [place] [address] ProviderLeyda MD [address] [place] [id number] Social History Tobacco Use Types Packs/Day Years Used Date Smoking Tobacco: Never Assessed Comments Unknown Sex and Gender Information Value Date Recorded Sex Assigned at Not on file Legal Sex Female 6:21 PM CDT Gender Identity Not on file Sexual Orientation Not on file documented as of this encounter Miscellaneous Notes * Cerner Conversion Note - Leyda ProviderMD - 05/25/2018 3:23 PM CDT [address] Qasim Capone, [place] [address] Patient Copy Patient Information: Name: MELINDA APONTE Current Date: 05/25/2018 15:23:27 : 1975 Patient Address: [employer] [facility] [address] Patient Attending Physician: ZINA STEELE MD-MTJosef Primary Care Provider: Bill Lamar MD Primary Care Provider Discharge Diagnosis: 1:Epigastric pain Weight on Admission: 170 lb, 2 oz Comment: Follow-up Instructions: With: Address: When: Z[place] [address] [address] Business (1) Within As needed Comments: [...] getting enough exercise. ??? Smoking. ??? Taking uaix-xrj-axfwkzo pain medicines, like aspirin and ibuprofen. SYMPTOMS [...] 11/18/2004 Document Revised: 02/26/2014 Document Reviewed: 01/16/2014 [employer] Interactive Patient Education ? 2017 [employer]. Colonoscopy, Adult, Care After This sheet gives [...] slower pace than normal. ? Eat soft, clej-nk-evdfio foods. ? Rest often. ??? Take cijt-voh-mqwiywo or prescription medicines only as told by [...] 10/05/2004 Document Revised: 11/15/2016 Document Reviewed: 05/04/2016 [employer] Interactive Patient Education ? 2017 [employer] Hiatal Hernia A hiatal hernia occurs [...] symptoms. ??? Medicines. These may include: ? Zipl-tfs-wxbaaed antacids. ? Medicines that make your stomach [...] These may include: ? Fatty foods. ? [place] fruits. ? Other foods and drinks that [...] 05/13/2004 Document Revised: 06/14/2016 Document Reviewed: 02/08/2014 [employer] Interactive Patient Education ? 2017 [employer] Gastric Polyps A gastric polyp, also [...] Follow these instructions at home: ??? Take ygnb-pkf-opeofbz and prescription medicines only as told by [...] 02/07/2013 Document Revised: 07/12/2016 Document Reviewed: 03/07/2016 [employer] Interactive Patient Education ? 2017 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 ? [place] or spicy foods. ? Chocolate and peppermint. General instructions ??? Take tznl-bwf-opxpfei and prescription medicines only as told by [...] Revised: 07/29/2016 Document Reviewed: 01/15/2016 ? 2017 [employer] Medication Leaflets: omeprazole (oh MEP ra zol) [...] a broken bone while taking this medicine exterminator or more than once per day. What [...] by infection with Helicobacter pylori (H. pylori). Grbg-ywt-seikytr (OTC) omeprazole is used to help control [...] medicine exactly as directed. Use Prilosec OTC (ayjy-iyq-xrypkos) exactly as directed on the label, or [...] may report side effects to FDA at 4-162-BZW-4741. What other drugs will affect omeprazole? Sometimes it is not safe to use certain medications at the same time. Some drugs can affect your blood levels of other drugs you take, which may increase side effects or make the medications less effective. Tell your doctor about all your current medicines. Many drugs can affect omeprazole, especially: ? clopidogrel; ?? methotrexate; ?? Clarissa's wort; or ?? an antibiotic--amoxicillin, clarithromycin, rifampin. This list is not complete and many other drugs may affect omeprazole. This includes prescription and kbax-qln-uxaenim medicines, vitamins, and herbal products. Not all [...] to ensure that the information provided by [employer]. ('[employer]') is accurate, up-to-date, and complete, but no guarantee is made to that effect. Drug information contained herein may be time sensitive. [employer] information has been compiled for use by healthcare practitioners and consumers in the [place] and therefore [employer] does not warrant that uses outside of the [place] are appropriate, unless specifically indicated otherwise. [employer] drug information does not endorse drugs, diagnose patients or recommend therapy. [employer] drug information is an informational resource designed [...] effective or appropriate for any given patient. [facility] does not assume any responsibility for any aspect of healthcare administered with the aid of information [facility] provides. The information contained herein is not intended to cover all possible uses, directions, precautions, warnings, drug interactions, allergic reactions, or adverse effects. If you have questions about the drugs you are taking, check with your doctor, nurse or pharmacist. Copyright 2378-7348 [employer] [facility]. Version: 19.01. Revision Date: 08/29/2017. CIGARETTE SMOKING: The facts are clear, cigarette smoking will shorten your life. Smoking can cause many illnesses along the way. As a healthcare provider, we recommend that you stop smoking. Assistance with quitting is available by contacting 5-198-[facility] [place]. This is a free resource providing counseling, [...] sure to sign up for the [facility] patient portal, which gives you 27/09 access to your medical information ??? including these discharge instructions ??? using your computer, smartphone, or tablet. Just go to [employer] to get started. Questions? Call . [facility] would like to thank you for allowing us to assist you with your healthcare needs. Kath, MELINDA APONTE, (or advertising representative) have received the above patient education materials/instructions and have verbalized understanding: Patient Signature _ Date/Time Patient Gluing Machine Offbearer Signature (if needed) Date/Time Clinician/Hospital Gluing Machine Offbearer Signature (if needed) Date/Time documented in this encounter Plan of Treatment Not on file documented as of this encounter Visit Diagnoses Not on filedocumented in this encounter
--- OUTSIDE RECORDS SUMMARY | 2025-01-11 16:44 | XMS_ITS | Encounter Summary ---
Author Organization [employer] ([place], [place], [place], [place], [place]) Address [address] [place] [address] Care Team Providers Care Driller'S Assistant Name Role Phone Unavailable Primary Care Provider Unavailabl e Encounter Details Date Type Department Care Team (Late st Contact Info) Description 05/25/2018 Transcribed Document [facility] [place] [address] ProviderLeyda MD [address] [place] [address] [phone] Social History Tobacco Use Types Packs/Day Years [...] MD-GAE Finalized Date/Time: 05/25/18 14:58:42 Pt. Name: MELINDA APONTE /Sex: 1975 Female Med Rec #: [id number] Physician: ZINA STEELE MD-GAE Financial #: [id number] Pt. Type: O Room/Bed: [facility] Admit/Disch: 05/25/18 12:46:00 - Institution: [facility] - Case Attendance Entry 1 Entry 2 Entry 3 Case Attendee ZINA STEELE MD-GAE SHERMAN, YVONNE D., RN TALIB HERNANDES NA Role Performed Surgeon/Proceduralist, Home Based Assistant, First FAMILY REUNIFICATION SPECIALIST/Nurse Log Sawyer First Time In 05/25/18 14:10:00 05/25/18 13:56:00 [...] Endo - Case Attendance Audit 05/25/18 14:58:08 Concrete Conveyor Operator: VIKTORIA Modifier: VIKTORIA 1 <+> Time Out [...] Biopsy, Gastric Polypectomy, Colon Biopsy 05/25/18 14:53:22 Concrete Conveyor Operator: VIKTORIA Modifier: SHERMAYD 1 <*> Procedure Colonoscopy, Esophagogastroduodenoscopy, Duodenal Biopsy, Gastric Polypectomy 2 <*> Procedure Colonoscopy, Esophagogastroduodenoscopy, Duodenal Biopsy, Gastric Polypectomy 3 <*> Procedure Colonoscopy, Esophagogastroduodenoscopy, Duodenal Biopsy, Gastric Polypectomy 4 <*> Procedure Colonoscopy, Esophagogastroduodenoscopy, Duodenal Biopsy, Gastric Polypectomy 05/25/18 14:20:26 Concrete Conveyor Operator: VIKTORIA Modifier: SHERMAYD <+> 2 Procedure 3 <*> Procedure Colonoscopy, Esophagogastroduodenoscopy, Duodenal Biopsy 4 <*> Procedure Colonoscopy, Esophagogastroduodenoscopy, Duodenal Biopsy 05/25/18 14:20:25 Concrete Conveyor Operator: QUINTONMAYD Modifier: SHERMAYD 1 <*> Procedure Colonoscopy, Esophagogastroduodenoscopy, Duodenal Biopsy 2 <-> Procedure Colonoscopy, Esophagogastroduodenoscopy, Duodenal Biopsy 05/25/18 14:14:02 Concrete Conveyor Operator: VIKTORIA Modifier: SHERMAYD 1 <*> Procedure Colonoscopy, Esophagogastroduodenoscopy 2 <*> Procedure Colonoscopy, Esophagogastroduodenoscopy 3 <*> Procedure Colonoscopy, Esophagogastroduodenoscopy 4 <*> Procedure Colonoscopy, Esophagogastroduodenoscopy 05/25/18 14:12:23 Concrete Conveyor Operator: VIKTORIA Modifier: SHERMAYD <+> 1 Time In [...] Endo - Case Times Audit 05/25/18 14:58:01 Concrete Conveyor Operator: VIKTORIA Modifier: MARCINYD <+> 1 Out Room Time <+> 1 Stop Time <+> 1 Stop Time 05/25/18 14:13:25 Concrete Conveyor Operator: VIKTORIA Modifier: VIKTORIA <+> 1 Start Time [...] Modified By: TOÑO SILVA RN 05/25/18 13:59:08 Josef Endo - Fire Risk Assessment Entry 1 Fire Info Surgical Site or 1- Yes Incision Above the Xyphoid Open O2 Source 1- Yes (Mask or Cannula) Available Ignition 1- Yes (ESU, Laser, Light Source) Fire Risk 3 Assessment Score Fire Score Fire Risk Yes Assessment Complete Fire Risk TOÑO SILVA, medical massage therapist Verified By Fire Risk 05/25/18 13:51:00 Assessment Verified Date/Time Fire Risk High Risk Protocol Yes Implemented Standard Fire Yes Safety Precautions Followed Last Modified By: TOÑO SILVA RN 05/25/18 13:51:59 Josef Endo - General Case Technical Intern 1 Case Information OR Endo 01 E Case Level 1 Room Verified Yes Wound Class III - Contaminated Specialty SN Gastroenterology Anesthesia Type MAC ASA Class 2 Diagnosis Preop Diagnosis gerd, hx of polpys, constipation Postop Diagnosis barretts, gastric polyps, Hiatal hernia, diverticulosis, redundant colon Last Modified By: TOÑO SILVA RN 05/25/18 14:58:42 [facility] Endo - General Case Data Audit 05/25/18 14:58:42 Concrete Conveyor Operator: VIKTORIA Modifier: SHERMAYD 1 <*> Postop Diagnosis barretts, gastric polyps, Hiatal hernia, diverticulosis, redundant colon 05/25/18 14:42:53 Concrete Conveyor Operator: QUINTONMAAMY Modifier: SHERMAYD 1 <*> Postop Diagnosis barretts, gastric polyps, Hiatal hernia, diverticulosis 05/25/18 14:29:00 Concrete Conveyor Operator: VIKTORIA Modifier: SHERMAYD <+> 1 Postop Diagnosis 05/25/18 14:08:50 Concrete Conveyor Operator: VIKTORIA Modifier: SHERMAYD 1 <*> OR Endo [...] Endo - Intraoperative Equipment Audit 05/25/18 13:51:45 Concrete Conveyor Operator: VIKTORIA Modifier: VIKTORIA <+> 2 Photo <+> 2 Video <+> 2 Blood Pressure Location <+> 2 Pulse Oximeter Probe Site <+> 2 Flexible Endoscopes Used <+> 2 Scope Serial Number/Identification Number Josef Endo - Patient Positioning Entry 1 Procedure [...] Yes Elements Complete? RN Sign Out TOÑO SILAV, RN Signature RN Sign Out 05/25/18 14:57:00 [...] to extraneous objects Last Modified By: TOÑO SILVA RN 05/25/18 14:57:45 [facility] Endo - Surgical [...] Endo - Surgical Procedures Audit 05/25/18 14:57:29 Concrete Conveyor Operator: VIKTORIA Modifier: VIKTORIA 1 <*> Procedure Colonoscopy 1 <+> Stop 5 <*> Procedure Colon Biopsy 5 <+> Stop 05/25/18 14:53:19 Concrete Conveyor Operator: VIKTORIA Modifier: VIKTORIA 1 <*> Procedure Colonoscopy 1 <+> Physician States Cecum Reached <+> 5 Procedure <+> 5 Primary Procedure <+> 5 Primary Surgeon <+> 5 Specialty <+> 5 Start <+> 5 Wound Class <+> 5 Anesthesia Type <+> 5 Physician States Cecum Reached 05/25/18 14:42:30 Concrete Conveyor Operator: VIKTORIA Modifier: MARCINYD 1 <*> Procedure Colonoscopy 1 <+> Specialty 1 <*> Start 05/25/18 14:39:00 1 <+> Anesthesia Type 05/25/18 14:31:55 Concrete Conveyor Operator: VIKTORIA Modifier: SHERMAYD 2 <*> Procedure Esophagogastroduodenoscopy 2 <+> Stop 3 <*> Procedure Duodenal Biopsy 3 <+> Stop 4 <*> Procedure Gastric Polypectomy 4 <+> Stop 05/25/18 14:20:23 Concrete Conveyor Operator: VIKTORIA Modifier: SHERMAYD <+> 4 Procedure <+> 4 Primary Procedure <+> 4 Primary Surgeon <+> 4 Specialty <+> 4 Start <+> 4 Wound Class <+> 4 Anesthesia Type <+> 4 Additional Procedure Description 05/25/18 14:13:59 Concrete Conveyor Operator: VIKTORIA Modifier: QUINTONMAYD <+> 1 Start 2 [...] Endo - Time Out Audit 05/25/18 14:20:27 Concrete Conveyor Operator: VIKTORIA Modifier: QUINTONMAYD 1 <*> Procedure to be Performed Colonoscopy, Esophagogastroduodenoscopy, Duodenal Biopsy 05/25/18 14:14:03 Concrete Conveyor Operator: VIKTORIA Modifier: MARCINYD 1 <*> Procedure to be Performed Colonoscopy, Esophagogastroduodenoscopy Case Comments <None> Finalized By: TOÑO SILVA, RN Document Signatures Signed By: TOÑO SILVA RN 05/25/18 14:58 documented in this encounter Plan of Treatment Not on file documented as of this encounter Visit Diagnoses Not on filedocumented in this encounter
--- OUTSIDE RECORDS SUMMARY | 2025-01-11 16:44 | XMS_ITS | Encounter Summary ---
Author Organization [employer] ([place], [place], [place], [place], [place]) Address [address] [place] [address] Care Team Providers Care Feller Seam Operator Name Role Phone Unavailable Primary Care Provider Unavailabl e Encounter Details Date Type Department Care Team (Late st Contact Info) Description 05/25/2018 Transcribed Document [facility] [place] [facility] [place] [address] ProviderLeyda MD [address] [place] [address] [phone] Social History Tobacco Use Types Packs/Day Years Used Date Smoking Tobacco: Never Assessed Comments Unknown Sex and Gender Information Value Date Recorded Sex Assigned at Not on file Legal Sex Female 6:21 PM CDT Gender Identity Not on file Sexual Orientation Not on file documented as of this encounter Miscellaneous Notes * Cerner Conversion Note - Historical ProviderMD - 05/25/2018 3:22 PM CDT Nursing [...]
--- OUTSIDE RECORDS SUMMARY | 2025-01-11 16:44 | XMS_ITS | Encounter Summary ---
Author Organization [employer] ([place], [place], [place], [place], [place]) Address [address] [place] [address] Care Team Providers Care Leather Goods Assembler Name Role Phone Unavailable Primary Care Provider Unavailabl e Encounter Details Date Type Department Care Team (Late st Contact Info) Description 05/25/2018 Transcribed Document [facility] [place] [address] [place] [address] ProviderLeyda MD [address] [place] [id number] Social History Tobacco Use Types Packs/Day Years [...] Source : Stated Height Entry Format : [place] Height, Feet : 5 ft(Converted to: 152 cm, 60 Inch) Height, Inches : 1 Inch(Converted to: 0 ft 1 Inch, 2.54 cm) Clinical Height : 154.94 cm Weight Source : Standing scale Weight Entry Format : [place] Clinical Dosing Weight : 77.33 kg Weight, Pounds : 170 lb Weight, Ounces : 2 oz Body Surface Area (BSA) : 1.77 m2 Body Mass Index : 32.2 kg/m2 (HI) [place] Body Weight : 47 kg KAMALA MOISE [...] Updated: 05/25/2018 13:10:34 EDT by KAMALA MOISE, KOLE) Nutrition/Health: Caffeine intake amount: coffee soda daily. [...] Obtained From : Patient Primary Language : Micronesian Preferred Communication Mode : Verbal Communication Barrier [...] Scale Risk Level : 0-24 Low Risk [place] Fall Interventions : Adequate lighting, Assistive devices [...]
--- OUTSIDE RECORDS SUMMARY | 2025-01-11 16:44 | XMS_ITS | Referral Summary ---
Author Organization [employer] ([place], [place], [place], [place], [place]) Address [address] [place] [address] Care Team Providers Care Spindle Setter Name Role Phone Unavailable Primary Care Provider Unavailabl e Allergies Active Allergy Reactions Criticality Noted Date Comments Lamotrigine Itching 09/16/2023 [place] 09/16/2023 Medications amitriptyline (ELAVIL) 25 MG tablet [...] Date Tyrone rded Speak language other than Slovak at home Not on file 03/25/2023 Want [...] Advance Directives For more information, please contact: [phone] * Full Code (Latest Code Status on File) Date Activated Date Inactivated Comments 09/16/2023 11:46 AM 09/17/2023 4:27 AM
--- OUTSIDE RECORDS SUMMARY | 2025-01-11 16:44 | XMS_ITS | Clinical Summary ---
Author Organization [employer] ([place], [place], [place], [place], [place]) Address [address] [place] [address] Care Team Providers Care Insurance Claims Examiner Name Role Phone Unavailable Primary Care Provider Unavailabl e Allergies Active Allergy Reactions Criticality Noted Date Comments Lamotrigine Itching 09/16/2023 [place] 09/16/2023 Medications amitriptyline (ELAVIL) 25 MG tablet [...] Date Tyrone rded Speak language other than Macedonian at home Not on file 03/25/2023 Want [...] Advance Directives For more information, please contact: [phone] * Full Code (Latest Code Status on File) Date Activated Date Inactivated Comments 09/16/2023 11:46 AM 09/17/2023 4:27 AM
[2025-01-11 18:24] LABS: 25-OH Vitamin D, Total 29.1 ng/mL (30-100)
[2025-01-11 18:33] LABS: Thyroid Stimulating Hormone 1.71 uIU/mL (0.465-4.68)
[2025-01-11 18:38] LABS: Ferritin 320 ng/ml (11.1-264)
== END 2025-01-11 23:59 | disposition home or self-care (01) ==
LOC: LAB 16:40
PROVIDERS: Obstetrics & Gynecology; PCP Internal Medicine; Visit Provider Nurse Practitioner
DX: K59.00 Constipation, unspecified (principal); A63.0 Anogenital (venereal) warts
CPT/HCPCS: 36415; 82306; 82728; 84443